=== PATIENT | female | born 1990 | race Caucasian/White ===

== ENCOUNTER → 2016-11-14 | Outpatient (CLI) | payer OTHER ==
[~2016-11-14] MED LIST: /ONDA4TA OR; IBUP600T OR; MILKSUS OR; PHEN 25 PO; PRE; Prenatal Vitamin PO; ZANT150T OR
--- NOTE | 2016-11-14 14:11 | REP ---
MRI STUDY OF THE SACRUM AND COCCYX WITHOUT CONTRAST: HISTORY: Low back pain and pelvic tail bone pain. This is chronologically related to tubal ligation. Comparison pelvic sonography May 29, 2016. TECHNIQUE: Sagittal, axial and coronal imaging planes were utilized. T1- and T2-weighted scans were obtained. FINDINGS: Cortical and medullary bone signal intensity are normal in the sacral and coccygeal segments. No retrocecal or presacral fluid collection or mass is seen. The anus and rectum and presacral soft tissues are unremarkable. There is a tiny nabothian cyst in the cervix. No uterine abnormality is seen otherwise. Uterine dimensions are 8.3 x 4.5 x 6.5 cm. SI joints are unremarkable. There is a 2.6 cm cystic area in the left ovary. A small quantity of fluid is seen in the cul-de-sac consistent with physiologic fluid. Visualized bladder valiente are smooth. The parapelvic skeletal muscle and soft tissues are unremarkable. IMPRESSION: Negative sacral and coccygeal and pelvic MRI study. 2.6 cm unilocular follicle cyst left ovary. Signed by Jonathon Parker MD 11/14/2016 08:12 P
== END ==
LOC: M RAD 10:59
PROVIDERS: ATTEND Nurse Practitioner Family
DX: M46.1 Sacroiliitis, not elsewhere classified (principal); M79.1 Myalgia; M47.817 Spondylosis without myelopathy or radiculopathy, lumbosacral region; M54.16 Radiculopathy, lumbar region; N83.02 Follicular cyst of left ovary

== ENCOUNTER 2016-11-20 17:52 | Emergency (ER) | payer OTHER ==
[2016-11-20 18:51] LABS: BASO # 0.1 K/mm3 (0.0-0.2); BASO % 1.4 % (0.0-1.0); EOS # 0.1 K/mm3 (0.0-0.50); EOS % 2.9 % (0.0-3.0); LARGE UNSTAINED CELL # 0.1 K/mm3 (0.0-0.4); LYMPH # 1.6 K/mm3 (1.5-6.5); LYMPH % 29.8 % (24.0-44.0); MEAN CORPUSCULAR HEMOGLOBIN 28.9 pg (27.0-33.0); MEAN CORPUSCULAR HGB CONC 33.7 g/dl (32.0-36.5); MEAN CORPUSCULAR VOLUME 85.9 fl (80.0-96.0); MONO # 0.2 K/mm3 (0.0-0.8); MONO % 4.8 % (0.0-5.0); NEUTROPHILS # 2.9 K/mm3 (1.8-7.7); NEUTROPHILS % 59.1 % (36.0-66.0); PLATELET COUNT, AUTOMATED 214 k/mm3 (150-450)
[2016-11-20 19:10] LABS: CONTROL LINE HCG INT CTR LINE PRESENT
[2016-11-20 19:19] LABS: ALBUMIN 3.9 GM/DL (3.2-5.2); ALKALINE PHOSPHATASE 42 U/L (45-117); ALT/SGPT 35 U/L (12-78); AMYLASE 54 U/L (25-115); ANION GAP 9 MEQ/L (8-16); AST/SGOT 79 U/L (15-37); BILIRUBIN,DIRECT 0.2 MG/DL (0.0-0.2); BILIRUBIN,TOTAL 0.5 MG/DL (0.2-1.0); BLOOD UREA NITROGEN 7 MG/DL (7-18); CALCIUM LEVEL 9.2 MG/DL (8.5-10.1); CARBON DIOXIDE LEVEL 27 MEQ/L (21-32); CHLORIDE LEVEL 107 MEQ/L (98-107); CREATININE FOR GFR 0.76 MG/DL (0.55-1.02); GLOMERULAR FILTRATION RATE > 60.0 (>60); GLUCOSE, FASTING 93 MG/DL (70-105); POTASSIUM SERUM 3.6 MEQ/L (3.5-5.1); SODIUM LEVEL 143 MEQ/L (136-145); TOTAL PROTEIN 6.5 GM/DL (6.4-8.2)
[2016-11-20] MEDS ORDERED: ONDANSETRON 4 MG ORAL DISINTEGRATING TAB (S0181) As Ordered ONE (19:37)
[2016-11-20] MEDS ORDERED: NITROFURANTOIN (MACROBID) 100 MG CAP As Ordered ONE (19:37)
[2016-11-20] MEDS ORDERED: MAGNESIUM CITRATE 300 ML BTL As Ordered ONE (19:43)
--- NOTE | 2016-11-20 19:56 | EDDOCDS ---
Nurse's Notes [facility] Name: Mary Little Age: 26 yrs Sex: Female : 1990 Arrival Date: 11/20/2016 Time: 17:52 Bed Triage 3 Private MD: Vaibhav Amaral B Diagnosis: Generalized abdominal pain-hx. of constipation;Nausea and vomiting;Cystitis, unspecified Presentation: 11/20 18:11 Presenting complaint: Patient states: Pain in left lower quadrant with intermittent lf1 pain in right upper quadrant that began 40 minutes ago. Pt. denies pain with urination but states her urine has been dark in color. Pain is currently 10/10 with nausea and vomiting. Acute neurological deficits are not present. Mechanism of Injury: No Mechanism of Injury. Adult Sepsis Screening: The patient does not have new or worsening altered mentation. Patient's respiratory rate is less than 22. Systolic blood pressure is greater than 100. Patient has a qSOFA score of 0- Negative Sepsis Screen. Suicide/Homicide risk assessment- the patient denies having any suicidal and/or homicidal ideations and does not present with any other emotional, behavioral or mental health complaints. Status: Patient is not a personal service workers or dependent. Transition of care: patient was not received from another setting of care. 18:11 Acuity: BARRON Level 3 lf1 18:11 Method Of Arrival: Walkin/Carried/Asstd lf1 Triage Assessment: 18:14 General: Appears uncomfortable, Behavior is cooperative. Pain: Location: right upper lf1 quadrant and left lower quadrant Pain currently is 10 out of 10 on a pain scale. HIV screening NA for this visit Offered previously. Neurological: Level of Consciousness is awake, alert, Oriented to person, place, time. EENT: No deficits noted. Cardiovascular: Chest pain is denied. Respiratory: Respiratory effort is even, unlabored. GI: Reports nausea, vomiting. : Reports dark urine. Musculoskeletal: No deficits noted. Injury Description: No known injury. 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 Latuda 40 mg oral tab nightly (Last dose: 11/19/2016 20:00) 2. trazodone 50 mg Oral tab nightly (Last dose: 11/19/2016 20:00) 3. Xanax 0.5 mg Oral tab as needed (Last dose: 11/20/2016 08:00) - PMHx: Anxiety; Bipolar disorder; ovarian cysts; PID; - PSHx: Tubal ligation; Tonsillectomy; - Social history: Smoking status: Electronic cigarettes No barriers to communication noted, The patient speaks fluent [place] Irish, Speaks appropriately for age, Preferred Language: Northern Irish. - Family history: Not pertinent. - : The pt / caregiver states he / she is not on anticoagulants. Home medication list is obtained from the patient. - Exposure Risk Screening:: None identified. Screenin:53 Screening information is obtained from the patient. Fall risk: No risks identified. ko2 Assistance ADL's: requires no assistance with activities of daily living. Abuse/DV Screen: The patient / caregiver reports he/she is: not in a situation that causes fear, pain or injury. Nutritional screening: No deficits noted. Advance Directives: Currently, there is no health care proxy. There is no active DNR order. There is no living will. There is no Power of Press Catcher. home support is adequate. Assessment: 19:53 General: Appears in no apparent distress, comfortable, Behavior is appropriate for age, ko2 cooperative. Pain: Location: abdomen and left lower quadrant and right upper quadrant Pain currently is 7 out of 10 on a pain scale. Neurological: Level of Consciousness is awake, alert. Respiratory: Airway is patent Respiratory effort is even, unlabored. Derm: Skin is normal. Vital Signs: 17:53 BP 116 / 76; Pulse 86; Resp 18 S; Temp 98.0(O); Pulse Ox 98% on R/A; Weight 64.41 kg dd6 (R); Height 5 ft. 1 in. (154.94 cm) (R); 19:33 BP 117 / 68; Pulse 87; Resp 18; Temp 98.8(TE); Pulse Ox 99% on R/A; Pain 8/10; mdr 17:53 Body Mass Index 26.83 (64.41 kg, 154.94 cm) dd6 Vitals: 17:53 Log In Time: November 20, 2016 at 17:51. dd6 ED Course: 17:53 Patient visited by Rodriguez Dominguez PCA. dd6 17:53 Vaibhav Amaral is Private Physician. dd6 17:53 Patient moved to Waiting dd6 17:54 Patient moved to Pre RCE dd6 18:13 Triage Initiated lf1 18:35 Patient moved to PR2 / 26 kr3 18:41 Patient moved to Pre RCE kr3 18:41 Amylase Sent. kr3 18:41 Basic Metabolic Profile Sent. kr3 18:41 CBC with Diff Sent. kr3 18:41 HCG,Serum Qualitative Sent. kr3 18:41 Lipase Sent. kr3 18:41 Liver Profile Sent. kr3 19:17 Patient moved to Triage 3 lf1 19:22 Idris Dockery PA-C is PHCP. cc10 19:22 Paco Wells MD is Attending Physician. cc10 19:22 Patient visited by Idris Dockery PA-C. cc10 19:22 Patient visited by Idris Dockery PA-C. cc10 19:32 Vaibhav Amaral is Referral Physician. cc10 19:53 The patient / caregiver is instructed regarding the plan of care and ED course. ko2 19:54 No IV's were initiated during this patient's visit. No procedures done that require ko2 assistance. Administered Medications: 19:40 Drug: Nitrofurantoin 100 mg [nitrofurantoin macrocrystal 50 mg capsule (2 caps)] Route: ko2 PO; 19:41 Drug: Ondansetron ODT 4 mg [ondansetron 4 mg disintegrating tablet (1 tabs)] Route: PO; ko2 19:47 Drug: Magnesium Citrate 300 ml [magnesium citrate oral solution (300 mL)] Route: PO; ko2 Order Results: Lab Order: Amylase; SPEC'M 11/20/16 18:39 Test: AMYLASE; Value: 54; Range: 25-115; Units: U/L; Status: F Lab Order: Basic Metabolic Profile; SPEC'M 11/20/16 18:39 Test: GLUCOSE, FASTING; Value: 93; Range: 70-105; Units: MG/DL; Status: F Test: BLOOD UREA NITROGEN; Value: 7; Range: 7-18; Units: MG/DL; Status: F Test: CREATININE FOR GFR; Value: 0.76; Range: 0.55-1.02; Units: MG/DL; Status: F Test: SODIUM LEVEL; Range: 136-145; Units: MEQ/L; Status: I Test: POTASSIUM SERUM; Range: 3.5-5.1; Units: MEQ/L; Status: I Test: CHLORIDE LEVEL; Range: 98-107; Units: MEQ/L; Status: I Test: CARBON DIOXIDE LEVEL; Range: 21-32; Units: MEQ/L; Status: I Test: ANION GAP; Range: 8-16; Units: MEQ/L; Status: I Test: CALCIUM LEVEL; Range: 8.5-10.1; Units: MG/DL; Status: I Test: GLOMERULAR FILTRATION RATE; Value: > 60.0; Range: >60; Status: F Test: SODIUM LEVEL; Value: 143; Range: 136-145; Units: MEQ/L; Status: F Test: POTASSIUM SERUM; Value: 3.6; Range: 3.5-5.1; Units: MEQ/L; Status: F Test: CHLORIDE LEVEL; Value: 107; Range: 98-107; Units: MEQ/L; Status: F Test: CARBON DIOXIDE LEVEL; Value: 27; Range: 21-32; Units: MEQ/L; Status: F Test: ANION GAP; Value: 9; Range: 8-16; Units: MEQ/L; Status: F Test: CALCIUM LEVEL; Value: 9.2; Range: 8.5-10.1; Units: MG/DL; Status: F Test Note: ; Units are mL/min/1.73 m2 Chronic Kidney Disease Staging per NKF: Stage I & II GFR >=60 Normal to Mildly Decreased Stage III GFR 30-59 Moderately Decreased Stage IV GFR 15-29 Severely Decreased Stage V GFR <15 Very Little GFR Left ESRD GFR <15 on MILL DRESSER Lab Order: CBC with Diff; SPEC'M 11/20/16 18:39 Test: WHITE BLOOD COUNT; Value: 5.0; Range: 4.0-10.0; Units: K/mm3; Status: F Test: RED BLOOD COUNT; Value: 4.33; Range: 4.00-5.40; Units: M/mm3; Status: F Test: HEMOGLOBIN; Value: 12.5; Range: 12.0-16.0; Units: g/dl; Status: F Test: HEMATOCRIT; Value: 37.1; Range: 36.0-47.0; Units: %; Status: F Test: MEAN CORPUSCULAR VOLUME; Value: 85.9; Range: 80.0-96.0; Units: fl; Status: F Test: MEAN CORPUSCULAR HEMOGLOBIN; Value: 28.9; Range: 27.0-33.0; Units: pg; Status: F Test: MEAN CORPUSCULAR HGB CONC; Value: 33.7; Range: 32.0-36.5; Units: g/dl; Status: F Test: RED CELL DISTRIBUTION WIDTH; Value: 14.0; Range: 11.5-14.5; Units: %; Status: F Test: PLATELET COUNT, AUTOMATED; Value: 214; Range: 150-450; Units: k/mm3; Status: F Test: NEUTROPHILS %; Value: 59.1; Range: 36.0-66.0; Units: %; Status: F Test: LYMPH %; Value: 29.8; Range: 24.0-44.0; Units: %; Status: F Test: MONO %; Value: 4.8; Range: 0.0-5.0; Units: %; Status: F Test: EOS %; Value: 2.9; Range: 0.0-3.0; Units: %; Status: F Test: BASO %; Value: 1.4; Range: 0.0-1.0; Abnormal: Above high normal; Units: %; Status: F Test: LARGE UNSTAINED CELL %; Value: 2.0; Range: 0.0-4.0; Units: %; Status: F Test: NEUTROPHILS #; Value: 2.9; Range: 1.8-7.7; Units: K/mm3; Status: F Test: LYMPH #; Value: 1.6; Range: 1.5-6.5; Units: K/mm3; Status: F Test: MONO #; Value: 0.2; Range: 0.0-0.8; Units: K/mm3; Status: F Test: EOS #; Value: 0.1; Range: 0.0-0.50; Units: K/mm3; Status: F Test: BASO #; Value: 0.1; Range: 0.0-0.2; Units: K/mm3; Status: F Test: LARGE UNSTAINED CELL #; Value: 0.1; Range: 0.0-0.4; Units: K/mm3; Status: F Lab Order: HCG,Serum Qualitative; [facility] 11/20/16 18:39 Test: HCG, SERUM QUALITATIVE; Value: NEGATIVE; Range: NEGATIVE; Status: F Lab Order: Lipase; [facility] 11/20/16 18:39 Test: LIPASE; Value: 178; Range: 73-393; Units: U/L; Status: F Lab Order: Liver Profile; [facility] 11/20/16 18:39 Test: AST/SGOT; Value: 79; Range: 15-37; Abnormal: Above high normal; Units: U/L; Status: F Test: ALT/SGPT; Value: 35; Range: 12-78; Units: U/L; Status: F Test: ALKALINE PHOSPHATASE; Value: 42; Range: 45-117; Abnormal: Below low normal; Units: U/L; Status: F Test: BILIRUBIN,TOTAL; Value: 0.5; Range: 0.2-1.0; Units: MG/DL; Status: F Test: BILIRUBIN,DIRECT; Value: 0.2; Range: 0.0-0.2; Units: MG/DL; Status: F Test: TOTAL PROTEIN; Value: 6.5; Range: 6.4-8.2; Units: GM/DL; Status: F Test: ALBUMIN; Value: 3.9; Range: 3.2-5.2; Units: GM/DL; Status: F Test: ALBUMIN/GLOBULIN RATIO; Value: 1.50; Range: 1.00-1.93; Status: F Lab Order: UA; [facility] 11/20/16 18:29 Test: APPEARANCE, URINE; Value: CLEAR; Range: CLEAR; Status: F Test: COLOR, URINE; Value: YELLOW; Range: YELLOW; Status: F Test: PH,URINE; Value: 6.0; Range: 5.0-9.0; Units: UNITS; Status: F Test: SPECIFIC GRAVITY URINE AUTO; Value: 1.010; Range: 1.002-1.035; Status: F Test: PROTEIN, URINE AUTO; Value: NEGATIVE; Range: NEGATIVE; Units: mg/dL; Status: F Test: GLUCOSE, URINE (UA) AUTO; Value: NEGATIVE; Range: NEGATIVE; Units: mg/dL; Status: F Test: KETONE, URINE AUTO; Value: TRACE; Range: NEGATIVE; Abnormal: Above high normal; Units: mg/dL; Status: F Test: UROBILINOGEN, URINE AUTO; Value: 0.2; Range: 0.0-2.0; Units: mg/dL; Status: F Test: BILIRUBIN, URINE AUTO; Value: NEGATIVE; Range: NEGATIVE; Status: F Test: NITRITE, URINE AUTO; Value: NEGATIVE; Range: NEGATIVE; Status: F Test: LEUKOCYTE ESTERASE, URINE AUTO; Value: TRACE; Range: NEGATIVE; Abnormal: Above high normal; Status: F Test: BLOOD, URINE BLOOD; Value: NEGATIVE; Range: NEGATIVE; Status: F Test: WBC, URINE AUTO; Value: 4; Range: 0-3; Abnormal: Above high normal; Units: /HPF; Status: F Test: RBC, URINE AUTO; Value: 2; Range: 0-3; Units: /HPF; Status: F Test: BACTERIA, URINE AUTO; Value: 2+; Range: NEGATIVE; Abnormal: Above high normal; Status: F Test: SQUAMOUS EPITHELIAL CELL UR AU; Value: 5; Range: 0-6; Units: /HPF; Status: F Test: MUCUS, URINE; Value: SMALL; Range: NEGATIVE; Status: F Test: HYALINE CAST, URINE AUTO; Value: 0; Range: 0-1; Units: /LPF; Status: F Outcome: 19:33 Discharge ordered by Provider. cc10 19:54 Discharge Assessment: Patient awake, alert and oriented x 3. No cognitive and/or ko2 functional deficits noted. Patient verbalized understanding of disposition instructions. patient administered narcotics - no. The following High Risk Discharge criteria are identified: None. Discharged to home ambulatory, with parent. Condition: stable. Discharge instructions given to patient, Instructed on discharge instructions, follow up and referral plans. medication usage, Demonstrated understanding of instructions, medications, Pt was receptive of discharge instructions/ teaching. Prescriptions given X 2. No special radiology studies were completed. Property sent home with patient. 19:54 Patient left the ED. ko2 Signatures: Cydney Roberts,RN RN [email or web address] Kori DillRN RN lf1 Rodriguez Dominguez, MACHINE LEATHER TRIMMER MACHINE LEATHER TRIMMER dd6 Idris Dockery, PA-C PA-C cc10 Becky Tubbs RN RN ko2 Rommel, Harshal, MACHINE LEATHER TRIMMER MACHINE LEATHER TRIMMER mdr SHANNAND
--- NOTE | 2016-11-20 19:56 | EDDOCDS ---
Physician Documentation [facility] Name: Mary Little Age: 26 yrs Sex: Female : 1990 Arrival Date: 11/20/2016 Time: 17:52 Bed Triage 3 Private MD: Vaibhav Amaral B Disposition: 11/20/16 19:33 Discharged to Home/Self Care. Impression: Generalized abdominal pain - hx. of constipation, Nausea and vomiting, Cystitis, unspecified. - Condition is Stable. - Discharge Instructions: Abdominal Pain, Adult, Constipation, Adult, Urinary Tract Infection. - Prescriptions for ZOFRAN ODT 4 mg - dissolve 1 tablet by ORAL route 4 times per day As needed do not chew, do not swallow whole; 10 tablet. Macrobid 100 mg Oral Capsule - take 100 milligrams by ORAL route every 12 hours for 5 days; 10 capsule. - Medication Reconciliation, Local Pharmacy Hours form. - Follow up: Vaibhav Amaral; When: Call to arrange an appointment; Reason: Wound/Symptom Recheck, Recheck today's complaints, Worsening of conditions, Continuance of care. - Problem is an acute exacerbation. - Symptoms are unchanged. Historical: - Allergies: No known drug Allergies; - Home Meds: 1. Latuda 40 mg oral tab nightly (Last dose: 11/19/2016 20:00) 2. trazodone 50 mg Oral tab nightly (Last dose: 11/19/2016 20:00) 3. Xanax 0.5 mg Oral tab as needed (Last dose: 11/20/2016 08:00) - PMHx: Anxiety; Bipolar disorder; ovarian cysts; PID; - PSHx: Tubal ligation; Tonsillectomy; - Social history: Smoking status: Electronic cigarettes No barriers to communication noted, The patient speaks fluent [place], Speaks appropriately for age, Preferred Language: [place]. - Family history: Not pertinent. - : The pt / caregiver states he / she is not on anticoagulants. Home medication list is obtained from the patient. - Exposure Risk Screening:: None identified. 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 1 in. (154.94 cm) (R); 19:33 BP 117 / 68; Pulse 87; Resp 18; Temp 98.8(TE); Pulse Ox 99% on R/A; Pain 8/10; mdr 17:53 Body Mass Index 26.83 (64.41 kg, 154.94 cm) dd6 MDM: 18:28 Amylase Ordered. EDMS 18:28 Basic Metabolic Profile Ordered. EDMS 18:28 CBC with Diff Ordered. EDMS 18:28 HCG,Serum Qualitative Ordered. EDMS 18:28 Lipase Ordered. EDMS 18:28 Liver Profile Ordered. EDMS 18:28 UA Ordered. EDMS 19:26 CBC with Diff Reviewed. cc10 19:26 Liver Profile Reviewed. cc10 19:26 UA Reviewed. cc10 19:26 Amylase Reviewed. cc10 19:26 Basic Metabolic Profile Reviewed. cc10 19:26 HCG,Serum Qualitative Reviewed. cc10 19:26 Lipase Reviewed. cc10 19:30 Financial registration complete. gb 19:32 Ondansetron ODT Oral Disintegrating Tablet 4 mg PO once ordered. cc10 19:32 Nitrofurantoin 100 mg PO once ordered. cc10 19:32 Magnesium Citrate Liquid 300 ml PO once; Dispense home with pt. ordered. cc10 Administered Medications: 19:40 Drug: Nitrofurantoin 100 mg [nitrofurantoin macrocrystal 50 mg capsule (2 caps)] Route: ko2 PO; 19:41 Drug: Ondansetron ODT 4 mg [ondansetron 4 mg disintegrating tablet (1 tabs)] Route: PO; ko2 19:47 Drug: Magnesium Citrate 300 ml [magnesium citrate oral solution (300 mL)] Route: PO; ko2 Signatures: Dispatcher [employer] EDMS Viki Gonzales, Reg Reg gb Kori Dill,RN RN lf1 Idris Dockery PA-C PAAmadou cc10 Becky Tubbs RN RN ko2 MTDD
--- NOTE | 2016-11-22 20:56 | EDDOCDS ---
Nurse's Notes [facility] Name: Mary Little Age: 26 yrs Sex: Female : 1990 Arrival Date: 11/20/2016 Time: 17:52 Bed Triage 3 Private MD: Vaibhav Amaral B Diagnosis: Generalized abdominal pain-hx. of constipation;Nausea and vomiting;Cystitis, unspecified Presentation: 11/20 18:11 Presenting complaint: Patient states: Pain in left lower quadrant with intermittent lf1 pain in right upper quadrant that began 40 minutes ago. Pt. denies pain with urination but states her urine has been dark in color. Pain is currently 10/10 with nausea and vomiting. Acute neurological deficits are not present. Mechanism of Injury: No Mechanism of Injury. Adult Sepsis Screening: The patient does not have new or worsening altered mentation. Patient's respiratory rate is less than 22. Systolic blood pressure is greater than 100. Patient has a qSOFA score of 0- Negative Sepsis Screen. Suicide/Homicide risk assessment- the patient denies having any suicidal and/or homicidal ideations and does not present with any other emotional, behavioral or mental health complaints. Status: Patient is not a banking services officer or dependent. Transition of care: patient was not received from another setting of care. 18:11 Acuity: BARRON Level 3 lf1 18:11 Method Of Arrival: Walkin/Carried/Asstd lf1 Triage Assessment: 18:14 General: Appears uncomfortable, Behavior is cooperative. Pain: Location: right upper lf1 quadrant and left lower quadrant Pain currently is 10 out of 10 on a pain scale. HIV screening NA for this visit Offered previously. Neurological: Level of Consciousness is awake, alert, Oriented to person, place, time. EENT: No deficits noted. Cardiovascular: Chest pain is denied. Respiratory: Respiratory effort is even, unlabored. GI: Reports nausea, vomiting. : Reports dark urine. Musculoskeletal: No deficits noted. Injury Description: No known injury. 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 Latuda 40 mg oral tab nightly (Last dose: 11/19/2016 20:00) 2. trazodone 50 mg Oral tab nightly (Last dose: 11/19/2016 20:00) 3. Xanax 0.5 mg Oral tab as needed (Last dose: 11/20/2016 08:00) - PMHx: Anxiety; Bipolar disorder; ovarian cysts; PID; - PSHx: Tubal ligation; Tonsillectomy; - Social history: Smoking status: Electronic cigarettes No barriers to communication noted, The patient speaks fluent Angolan, Speaks appropriately for age, Preferred Language: Angolan. - Family history: Not pertinent. - : The pt / caregiver states he / she is not on anticoagulants. Home medication list is obtained from the patient. - Exposure Risk Screening:: None identified. Screenin:53 Screening information is obtained from the patient. Fall risk: No risks identified. ko2 Assistance ADL's: requires no assistance with activities of daily living. Abuse/DV Screen: The patient / caregiver reports he/she is: not in a situation that causes fear, pain or injury. Nutritional screening: No deficits noted. Advance Directives: Currently, there is no health care proxy. There is no active DNR order. There is no living will. There is no Power of Hydrator. home support is adequate. Assessment: 19:53 General: Appears in no apparent distress, comfortable, Behavior is appropriate for age, ko2 cooperative. Pain: Location: abdomen and left lower quadrant and right upper quadrant Pain currently is 7 out of 10 on a pain scale. Neurological: Level of Consciousness is awake, alert. Respiratory: Airway is patent Respiratory effort is even, unlabored. Derm: Skin is normal. Vital Signs: 17:53 BP 116 / 76; Pulse 86; Resp 18 S; Temp 98.0(O); Pulse Ox 98% on R/A; Weight 64.41 kg dd6 (R); Height 5 ft. 1 in. (154.94 cm) (R); 19:33 BP 117 / 68; Pulse 87; Resp 18; Temp 98.8(TE); Pulse Ox 99% on R/A; Pain 8/10; mdr 17:53 Body Mass Index 26.83 (64.41 kg, 154.94 cm) dd6 Vitals: 17:53 Log In Time: November 20, 2016 at 17:51. dd6 ED Course: 17:53 Patient visited by Rodriguez Dominguez PCA. dd6 17:53 Vaibhav Amaral is Private Physician. dd6 17:53 Patient moved to Waiting dd6 17:54 Patient moved to Pre RCE dd6 18:13 Triage Initiated lf1 18:35 Patient moved to PR2 / 26 kr3 18:41 Patient moved to Pre RCE kr3 18:41 Amylase Sent. kr3 18:41 Basic Metabolic Profile Sent. kr3 18:41 CBC with Diff Sent. kr3 18:41 HCG,Serum Qualitative Sent. kr3 18:41 Lipase Sent. kr3 18:41 Liver Profile Sent. kr3 19:17 Patient moved to Triage 3 lf1 19:22 Idris Dockery PA-C is PHCP. cc10 19:22 Paco Wells MD is Attending Physician. cc10 19:22 Patient visited by Idris Dockery PA-C. cc10 19:22 Patient visited by Idris Dockery PA-C. cc10 19:32 Vaibhav Amaral is Referral Physician. cc10 19:53 The patient / caregiver is instructed regarding the plan of care and ED course. ko2 19:54 No IV's were initiated during this patient's visit. No procedures done that require ko2 assistance. 20:27 [place] [place] was scanned into [employer] and attached to record. gb 11/21 03:04 T-Sheet-- Draft Copy was scanned into [employer] and attached to record. hs2 13:17 ECG/EKG was scanned into [employer] and attached to record. gb Administered Medications: 11/20 19:40 Drug: Nitrofurantoin 100 mg [nitrofurantoin macrocrystal 50 mg capsule (2 caps)] Route: ko2 PO; 19:41 Drug: Ondansetron ODT 4 mg [ondansetron 4 mg disintegrating tablet (1 tabs)] Route: PO; ko2 19:47 Drug: Magnesium Citrate 300 ml [magnesium citrate oral solution (300 mL)] Route: PO; ko2 Order Results: Lab Order: Amylase; SPEC'M 11/20/16 18:39 Test: AMYLASE; Value: 54; Range: 25-115; Units: U/L; Status: F Lab Order: Basic Metabolic Profile; SPEC'M 11/20/16 18:39 Test: GLUCOSE, FASTING; Value: 93; Range: 70-105; Units: MG/DL; Status: F Test: BLOOD UREA NITROGEN; Value: 7; Range: 7-18; Units: MG/DL; Status: F Test: CREATININE FOR GFR; Value: 0.76; Range: 0.55-1.02; Units: MG/DL; Status: F Test: SODIUM LEVEL; Range: 136-145; Units: MEQ/L; Status: I Test: POTASSIUM SERUM; Range: 3.5-5.1; Units: MEQ/L; Status: I Test: CHLORIDE LEVEL; Range: 98-107; Units: MEQ/L; Status: I Test: CARBON DIOXIDE LEVEL; Range: 21-32; Units: MEQ/L; Status: I Test: ANION GAP; Range: 8-16; Units: MEQ/L; Status: I Test: CALCIUM LEVEL; Range: 8.5-10.1; Units: MG/DL; Status: I Test: GLOMERULAR FILTRATION RATE; Value: > 60.0; Range: >60; Status: F Test: SODIUM LEVEL; Value: 143; Range: 136-145; Units: MEQ/L; Status: F Test: POTASSIUM SERUM; Value: 3.6; Range: 3.5-5.1; Units: MEQ/L; Status: F Test: CHLORIDE LEVEL; Value: 107; Range: 98-107; Units: MEQ/L; Status: F Test: CARBON DIOXIDE LEVEL; Value: 27; Range: 21-32; Units: MEQ/L; Status: F Test: ANION GAP; Value: 9; Range: 8-16; Units: MEQ/L; Status: F Test: CALCIUM LEVEL; Value: 9.2; Range: 8.5-10.1; Units: MG/DL; Status: F Test Note: ; Units are mL/min/1.73 m2 Chronic Kidney Disease Staging per NKF: Stage I & II GFR >=60 Normal to Mildly Decreased Stage III GFR 30-59 Moderately Decreased Stage IV GFR 15-29 Severely Decreased Stage V GFR <15 Very Little GFR Left ESRD GFR <15 on [employer] OPERATOR Lab Order: CBC with Diff; SPEC'M 11/20/16 18:39 Test: WHITE BLOOD COUNT; Value: 5.0; Range: 4.0-10.0; Units: K/mm3; Status: F Test: RED BLOOD COUNT; Value: 4.33; Range: 4.00-5.40; Units: M/mm3; Status: F Test: HEMOGLOBIN; Value: 12.5; Range: 12.0-16.0; Units: g/dl; Status: F Test: HEMATOCRIT; Value: 37.1; Range: 36.0-47.0; Units: %; Status: F Test: MEAN CORPUSCULAR VOLUME; Value: 85.9; Range: 80.0-96.0; Units: fl; Status: F Test: MEAN CORPUSCULAR HEMOGLOBIN; Value: 28.9; Range: 27.0-33.0; Units: pg; Status: F Test: MEAN CORPUSCULAR HGB CONC; Value: 33.7; Range: 32.0-36.5; Units: g/dl; Status: F Test: RED CELL DISTRIBUTION WIDTH; Value: 14.0; Range: 11.5-14.5; Units: %; Status: F Test: PLATELET COUNT, AUTOMATED; Value: 214; Range: 150-450; Units: k/mm3; Status: F Test: NEUTROPHILS %; Value: 59.1; Range: 36.0-66.0; Units: %; Status: F Test: LYMPH %; Value: 29.8; Range: 24.0-44.0; Units: %; Status: F Test: MONO %; Value: 4.8; Range: 0.0-5.0; Units: %; Status: F Test: EOS %; Value: 2.9; Range: 0.0-3.0; Units: %; Status: F Test: BASO %; Value: 1.4; Range: 0.0-1.0; Abnormal: Above high normal; Units: %; Status: F Test: LARGE UNSTAINED CELL %; Value: 2.0; Range: 0.0-4.0; Units: %; Status: F Test: NEUTROPHILS #; Value: 2.9; Range: 1.8-7.7; Units: K/mm3; Status: F Test: LYMPH #; Value: 1.6; Range: 1.5-6.5; Units: K/mm3; Status: F Test: MONO #; Value: 0.2; Range: 0.0-0.8; Units: K/mm3; Status: F Test: EOS #; Value: 0.1; Range: 0.0-0.50; Units: K/mm3; Status: F Test: BASO #; Value: 0.1; Range: 0.0-0.2; Units: K/mm3; Status: F Test: LARGE UNSTAINED CELL #; Value: 0.1; Range: 0.0-0.4; Units: K/mm3; Status: F Lab Order: HCG,Serum Qualitative; [facility] 11/20/16 18:39 Test: HCG, SERUM QUALITATIVE; Value: NEGATIVE; Range: NEGATIVE; Status: F Lab Order: Lipase; [facility] 11/20/16 18:39 Test: LIPASE; Value: 178; Range: 73-393; Units: U/L; Status: F Lab Order: Liver Profile; [facility] 11/20/16 18:39 Test: AST/SGOT; Value: 79; Range: 15-37; Abnormal: Above high normal; Units: U/L; Status: F Test: ALT/SGPT; Value: 35; Range: 12-78; Units: U/L; Status: F Test: ALKALINE PHOSPHATASE; Value: 42; Range: 45-117; Abnormal: Below low normal; Units: U/L; Status: F Test: BILIRUBIN,TOTAL; Value: 0.5; Range: 0.2-1.0; Units: MG/DL; Status: F Test: BILIRUBIN,DIRECT; Value: 0.2; Range: 0.0-0.2; Units: MG/DL; Status: F Test: TOTAL PROTEIN; Value: 6.5; Range: 6.4-8.2; Units: GM/DL; Status: F Test: ALBUMIN; Value: 3.9; Range: 3.2-5.2; Units: GM/DL; Status: F Test: ALBUMIN/GLOBULIN RATIO; Value: 1.50; Range: 1.00-1.93; Status: F Lab Order: UA; [facility] 11/20/16 18:29 Test: APPEARANCE, URINE; Value: CLEAR; Range: CLEAR; Status: F Test: COLOR, URINE; Value: YELLOW; Range: YELLOW; Status: F Test: PH,URINE; Value: 6.0; Range: 5.0-9.0; Units: UNITS; Status: F Test: SPECIFIC GRAVITY URINE AUTO; Value: 1.010; Range: 1.002-1.035; Status: F Test: PROTEIN, URINE AUTO; Value: NEGATIVE; Range: NEGATIVE; Units: mg/dL; Status: F Test: GLUCOSE, URINE (UA) AUTO; Value: NEGATIVE; Range: NEGATIVE; Units: mg/dL; Status: F Test: KETONE, URINE AUTO; Value: TRACE; Range: NEGATIVE; Abnormal: Above high normal; Units: mg/dL; Status: F Test: UROBILINOGEN, URINE AUTO; Value: 0.2; Range: 0.0-2.0; Units: mg/dL; Status: F Test: BILIRUBIN, URINE AUTO; Value: NEGATIVE; Range: NEGATIVE; Status: F Test: NITRITE, URINE AUTO; Value: NEGATIVE; Range: NEGATIVE; Status: F Test: LEUKOCYTE ESTERASE, URINE AUTO; Value: TRACE; Range: NEGATIVE; Abnormal: Above high normal; Status: F Test: BLOOD, URINE BLOOD; Value: NEGATIVE; Range: NEGATIVE; Status: F Test: WBC, URINE AUTO; Value: 4; Range: 0-3; Abnormal: Above high normal; Units: /HPF; Status: F Test: RBC, URINE AUTO; Value: 2; Range: 0-3; Units: /HPF; Status: F Test: BACTERIA, URINE AUTO; Value: 2+; Range: NEGATIVE; Abnormal: Above high normal; Status: F Test: SQUAMOUS EPITHELIAL CELL UR AU; Value: 5; Range: 0-6; Units: /HPF; Status: F Test: MUCUS, URINE; Value: SMALL; Range: NEGATIVE; Status: F Test: HYALINE CAST, URINE AUTO; Value: 0; Range: 0-1; Units: /LPF; Status: F Outcome: 19:33 Discharge ordered by Provider. cc10 19:54 Discharge Assessment: Patient awake, alert and oriented x 3. No cognitive and/or ko2 functional deficits noted. Patient verbalized understanding of disposition instructions. patient administered narcotics - no. The following High Risk Discharge criteria are identified: None. Discharged to home ambulatory, with parent. Condition: stable. Discharge instructions given to patient, Instructed on discharge instructions, follow up and referral plans. medication usage, Demonstrated understanding of instructions, medications, Pt was receptive of discharge instructions/ teaching. Prescriptions given X 2. No special radiology studies were completed. Property sent home with patient. 19:54 Patient left the ED. ko2 Signatures: Viki Gonzales, Reg Reg gb Cydney Roberts,RN RN kr3 Kori Dill,RN RN lf1 Rodriguez Dominguez, DIRECTOR INVESTMENT BANKING DIRECTOR INVESTMENT BANKING dd6 Idris Dockery, PA-C PA-C cc10 Becky TubbsRN RN ko2 Harshal Carney, DIRECTOR INVESTMENT BANKING DIRECTOR INVESTMENT BANKING mdr Vivian Barrett, Reg Reg hs2 Chart Complete MTDD
--- NOTE | 2016-11-22 20:56 | EDDOCDS ---
Physician Documentation [facility] Name: Mary Little Age: 26 yrs Sex: Female : 1990 Arrival Date: 11/20/2016 Time: 17:52 Bed Triage 3 Private MD: Vaibhav Amaral B Disposition: 11/20/16 19:33 Discharged to Home/Self Care. Impression: Generalized abdominal pain - hx. of constipation, Nausea and vomiting, Cystitis, unspecified. - Condition is Stable. - Discharge Instructions: Abdominal Pain, Adult, Constipation, Adult, Urinary Tract Infection. - Prescriptions for ZOFRAN ODT 4 mg - dissolve 1 tablet by ORAL route 4 times per day As needed do not chew, do not swallow whole; 10 tablet. Macrobid 100 mg Oral Capsule - take 100 milligrams by ORAL route every 12 hours for 5 days; 10 capsule. - Medication Reconciliation, Local Pharmacy Hours form. - Follow up: Vaibhav Amaral; When: Call to arrange an appointment; Reason: Wound/Symptom Recheck, Recheck today's complaints, Worsening of conditions, Continuance of care. - Problem is an acute exacerbation. - Symptoms are unchanged. Historical: - Allergies: No known drug Allergies; - Home Meds: 1. Latuda 40 mg oral tab nightly (Last dose: 11/19/2016 20:00) 2. trazodone 50 mg Oral tab nightly (Last dose: 11/19/2016 20:00) 3. Xanax 0.5 mg Oral tab as needed (Last dose: 11/20/2016 08:00) - PMHx: Anxiety; Bipolar disorder; ovarian cysts; PID; - PSHx: Tubal ligation; Tonsillectomy; - Social history: Smoking status: Electronic cigarettes No barriers to communication noted, The patient speaks fluent German, Speaks appropriately for age, Preferred Language: German. - Family history: Not pertinent. - : The pt / caregiver states he / she is not on anticoagulants. Home medication list is obtained from the patient. - Exposure Risk Screening:: None identified. 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 1 in. (154.94 cm) (R); 19:33 BP 117 / 68; Pulse 87; Resp 18; Temp 98.8(TE); Pulse Ox 99% on R/A; Pain 8/10; mdr 17:53 Body Mass Index 26.83 (64.41 kg, 154.94 cm) dd6 MDM: 18:28 Amylase Ordered. EDMS 18:28 Basic Metabolic Profile Ordered. EDMS 18:28 CBC with Diff Ordered. EDMS 18:28 HCG,Serum Qualitative Ordered. EDMS 18:28 Lipase Ordered. EDMS 18:28 Liver Profile Ordered. EDMS 18:28 UA Ordered. EDMS 19:26 CBC with Diff Reviewed. cc10 19:26 Liver Profile Reviewed. cc10 19:26 UA Reviewed. cc10 19:26 Amylase Reviewed. cc10 19:26 Basic Metabolic Profile Reviewed. cc10 19:26 HCG,Serum Qualitative Reviewed. cc10 19:26 Lipase Reviewed. cc10 19:30 Financial registration complete. gb 19:32 Ondansetron ODT Oral Disintegrating Tablet 4 mg PO once ordered. cc10 19:32 Nitrofurantoin 100 mg PO once ordered. cc10 19:32 Magnesium Citrate Liquid 300 ml PO once; Dispense home with pt. ordered. cc10 20:27 [facility] Payment Agreement was scanned into [employer] and attached to record. gb 11/21 03:04 T-Sheet-- Draft Copy was scanned into [employer] and attached to record. hs2 13:17 ECG/EKG was scanned into [employer] and attached to record. gb Administered Medications: 11/20 19:40 Drug: Nitrofurantoin 100 mg [nitrofurantoin macrocrystal 50 mg capsule (2 caps)] Route: ko2 PO; 19:41 Drug: Ondansetron ODT 4 mg [ondansetron 4 mg disintegrating tablet (1 tabs)] Route: PO; ko2 19:47 Drug: Magnesium Citrate 300 ml [magnesium citrate oral solution (300 mL)] Route: PO; ko2 Signatures: Dispatcher [employer] EDMS Viki Gonzales, Reg Reg gb Kori Dill,RN RN lf1 Idris Dockery PA-C PAIrvinC cc10 Becky Tubbs,RN RN ko2 Vivian Barrett, Reg Reg hs2 The chart was reviewed and I authenticate all verbal orders and agree with the evaluation and treatment provided.Attachments: 20:27 [place] [place] Payment Agreement gb 11/21 03:04 T-Sheet-- Draft Copy hs2 13:17 ECG/EKG gb Chart Complete MTDD
--- NOTE | 2016-11-22 20:56 | EDDOCDS ---
Physician Documentation [facility] Name: Mary Little Age: 26 yrs Sex: Female : 1990 Arrival Date: 11/20/2016 Time: 17:52 Bed Triage 3 Private MD: Vaibhav Amaral B Disposition: 11/20/16 19:33 Discharged to Home/Self Care. Impression: Generalized abdominal pain - hx. of constipation, Nausea and vomiting, Cystitis, unspecified. - Condition is Stable. - Discharge Instructions: Abdominal Pain, Adult, Constipation, Adult, Urinary Tract Infection. - Prescriptions for ZOFRAN ODT 4 mg - dissolve 1 tablet by ORAL route 4 times per day As needed do not chew, do not swallow whole; 10 tablet. Macrobid 100 mg Oral Capsule - take 100 milligrams by ORAL route every 12 hours for 5 days; 10 capsule. - Medication Reconciliation, Local Pharmacy Hours form. - Follow up: Vaibhav Amaral; When: Call to arrange an appointment; Reason: Wound/Symptom Recheck, Recheck today's complaints, Worsening of conditions, Continuance of care. - Problem is an acute exacerbation. - Symptoms are unchanged. Historical: - Allergies: No known drug Allergies; - Home Meds: 1. Latuda 40 mg oral tab nightly (Last dose: 11/19/2016 20:00) 2. trazodone 50 mg Oral tab nightly (Last dose: 11/19/2016 20:00) 3. Xanax 0.5 mg Oral tab as needed (Last dose: 11/20/2016 08:00) - PMHx: Anxiety; Bipolar disorder; ovarian cysts; PID; - PSHx: Tubal ligation; Tonsillectomy; - Social history: Smoking status: Electronic cigarettes No barriers to communication noted, The patient speaks fluent Nicaraguan, Speaks appropriately for age, Preferred Language: Nicaraguan. - Family history: Not pertinent. - : The pt / caregiver states he / she is not on anticoagulants. Home medication list is obtained from the patient. - Exposure Risk Screening:: None identified. 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 1 in. (154.94 cm) (R); 19:33 BP 117 / 68; Pulse 87; Resp 18; Temp 98.8(TE); Pulse Ox 99% on R/A; Pain 8/10; mdr 17:53 Body Mass Index 26.83 (64.41 kg, 154.94 cm) dd6 MDM: 18:28 Amylase Ordered. EDMS 18:28 Basic Metabolic Profile Ordered. EDMS 18:28 CBC with Diff Ordered. EDMS 18:28 HCG,Serum Qualitative Ordered. EDMS 18:28 Lipase Ordered. EDMS 18:28 Liver Profile Ordered. EDMS 18:28 UA Ordered. EDMS 19:26 CBC with Diff Reviewed. cc10 19:26 Liver Profile Reviewed. cc10 19:26 UA Reviewed. cc10 19:26 Amylase Reviewed. cc10 19:26 Basic Metabolic Profile Reviewed. cc10 19:26 HCG,Serum Qualitative Reviewed. cc10 19:26 Lipase Reviewed. cc10 19:30 Financial registration complete. gb 19:32 Ondansetron ODT Oral Disintegrating Tablet 4 mg PO once ordered. cc10 19:32 Nitrofurantoin 100 mg PO once ordered. cc10 19:32 Magnesium Citrate Liquid 300 ml PO once; Dispense home with pt. ordered. cc10 20:27 [facility] Payment Agreement was scanned into [employer] and attached to record. gb 11/21 03:04 T-Sheet-- Draft Copy was scanned into [employer] and attached to record. hs2 13:17 ECG/EKG was scanned into [employer] and attached to record. gb Administered Medications: 11/20 19:40 Drug: Nitrofurantoin 100 mg [nitrofurantoin macrocrystal 50 mg capsule (2 caps)] Route: ko2 PO; 19:41 Drug: Ondansetron ODT 4 mg [ondansetron 4 mg disintegrating tablet (1 tabs)] Route: PO; ko2 19:47 Drug: Magnesium Citrate 300 ml [magnesium citrate oral solution (300 mL)] Route: PO; ko2 Signatures: Dispatcher [employer] EDMS Viki Gonzales, Reg Reg gb Kori Dill,RN RN lf1 Idris Dockery PA-C PAIrvinC cc10 Becky Tubbs,RN RN ko2 Vivian Barrett, Reg Reg hs2 The chart was reviewed and I authenticate all verbal orders and agree with the evaluation and treatment provided.Attachments: 20:27 [place] [place] Agreement gb 11/21 03:04 T-Sheet-- Draft Copy hs2 13:17 ECG/EKG gb Chart Complete MTDD
== END 2016-11-20 19:54 | disposition home or self-care (01) ==
LOC: M ED 17:52
DX: R10.84 Generalized abdominal pain (principal); R11.2 Nausea with vomiting, unspecified; F31.9 Bipolar disorder, unspecified; N83.209 Unspecified ovarian cyst, unspecified side; N73.9 Female pelvic inflammatory disease, unspecified; Z79.899 Other long term (current) drug therapy; F17.210 Nicotine dependence, cigarettes, uncomplicated

== ENCOUNTER → 2016-12-10 | Outpatient (REF) | payer OTHER | LOC: M LAB REF 10:18 | PROVIDERS: ATTEND Physician Assistant Medical | DX: R10.30 Lower abdominal pain, unspecified (principal) ==

== ENCOUNTER 2017-01-01 13:06 | Emergency (ER) | payer OTHER ==
[~2017-01-01] VITALS: Ht 154.9 cm; Wt 62.1 kg
[2017-01-01] MEDS ORDERED: TRAZ100T4 PO (13:28)
[2017-01-01] MEDS ORDERED: CLON1TAB PO (13:28)
[2017-01-01] MEDS ORDERED: LATU80TA PO (13:28)
[2017-01-01] MEDS ORDERED: ONDANSETRON 4 MG TAB (S0181) PO ONE (14:00)
[2017-01-01] MEDS ORDERED: ATIV1TAB7 PO ×2 (14:46→14:48)
[2017-01-01 14:55] VITALS: BP 104/62
== END 2017-01-01 15:04 | disposition home or self-care (01) ==
LOC: M ED 14:15
DX: F41.9 Anxiety disorder, unspecified (principal)

== ENCOUNTER → 2017-01-02 | Outpatient (CLI) | payer OTHER ==
[~2017-01-02] MED LIST changes: +ATIV1TAB7 PO; +CLON1TAB PO; +LATU80TA PO; +TRAZ100T4 PO
--- NOTE | 2017-01-03 06:56 | REP ---
ABDOMEN, FLAT AND UPRIGHT, PA CHEST, THREE VIEWS: HISTORY: Constipation. A small amount of air is present in small and large intestine. There are no air fluid levels or dilated loops of intestine. There is no pneumoperitoneum. The lungs are clear. IMPRESSION: Nonspecific bowel gas pattern. Signed by Denis Bright MD 01/03/2017 08:24 A
== END ==
LOC: M WUC 17:16
PROVIDERS: ATTEND Physician Assistant Medical
DX: K59.00 Constipation, unspecified (principal); R10.84 Generalized abdominal pain

== ENCOUNTER → 2017-01-17 | Outpatient (REF) | payer OTHER | LOC: M LAB REF 09:40 | PROVIDERS: ATTEND Physician Assistant | DX: N39.0 Urinary tract infection, site not specified (principal) ==

== ENCOUNTER 2017-02-01 19:44 | Emergency (ER) | payer OTHER ==
[~2017-02-01] VITALS: Ht 154.9 cm; Wt 63.5 kg
[2017-02-01 19:44] VITALS: BP 110/61
[2017-02-01] MEDS ORDERED: PANT40TA2 (19:53)
[2017-02-01] MEDS ORDERED: hydroxyzine (19:53)
[2017-02-01] MEDS ORDERED: BENZ5TA (19:53)
[2017-02-01] MEDS ORDERED: KLON1TAB (19:53)
[2017-02-01] MEDS ORDERED: PROM25TA (19:53)
[2017-02-02] MEDS ORDERED: NS 1,000 ML IV ONE (01:00)
[2017-02-02] MEDS ORDERED: MORPHINE 4 MG/ML 1ML SYRINGE IV PRN (01:00)
[2017-02-02] MEDS ORDERED: ONDANSETRON 4MG/2ML VIAL (J2405) IV ONE (01:00)
[2017-02-02] MEDS ORDERED: ISOVUE-370 76% 100ML VIAL (Q9967) As Ordered ONE (01:22)
[2017-02-02 01:41] LABS: BASO % 0.5 % (0.0-1.0); EOS # 0.2 K/mm3 (0.0-0.50); LARGE UNSTAINED CELL # 0.1 K/mm3 (0.0-0.4); LARGE UNSTAINED CELL % 1.7 % (0.0-4.0); LYMPH # 1.9 K/mm3 (1.5-6.5); LYMPH % 29.3 % (24.0-44.0); MEAN CORPUSCULAR HGB CONC 33.7 g/dl (32.0-36.5); MEAN CORPUSCULAR VOLUME 88.9 fl (80.0-96.0); MONO # 0.3 K/mm3 (0.0-0.8); MONO % 4.2 % (0.0-5.0); NEUTROPHILS # 3.9 K/mm3 (1.8-7.7); NEUTROPHILS % 61.3 % (36.0-66.0); PLATELET COUNT, AUTOMATED 276 k/mm3 (150-450); WHITE BLOOD COUNT 6.4 K/mm3 (4.0-10.0)
[2017-02-02 01:53] LABS: CONTROL LINE HCG INT CTR LINE PRESENT
[2017-02-02 02:01] LABS: ALBUMIN 3.7 GM/DL (3.2-5.2); ALBUMIN/GLOBULIN RATIO 1.61 (1.00-1.93); ALKALINE PHOSPHATASE 51 U/L (45-117); ALT/SGPT 14 U/L (12-78); ANION GAP 6 MEQ/L (8-16); AST/SGOT 14 U/L (15-37); BILIRUBIN,DIRECT 0.1 MG/DL (0.0-0.2); BILIRUBIN,TOTAL 0.3 MG/DL (0.2-1.0); BLOOD UREA NITROGEN 9 MG/DL (7-18); CALCIUM LEVEL 8.7 MG/DL (8.5-10.1); CARBON DIOXIDE LEVEL 33 MEQ/L (21-32); CHLORIDE LEVEL 105 MEQ/L (98-107); GLOMERULAR FILTRATION RATE > 60.0 (>60); GLUCOSE, FASTING 104 MG/DL (70-105); POTASSIUM SERUM 3.6 MEQ/L (3.5-5.1); SODIUM LEVEL 144 MEQ/L (136-145)
[2017-02-02] MEDS: HYDROmorphone HCL 1 MG/ML SYRINGE (J1170) IV PRN ×2 (02:37→03:56)
--- NOTE | 2017-02-02 02:50 | REPUSA ---
CLINICAL HISTORY: Abdominal pain. TECHNIQUE: Multiple axial, sagittal and coronal CT images were obtained through the abdomen and pelvi s after administration of intravenous contrast material. COMMENTS: Fluid filled bowels. The liver is of uniform attenuation without mass or defect. There is no intra or extrahepatic biliary ductal dilatation. The spleen is normal. The gallbladder is within normal limits. The pancreas is of normal contour and attenuation characteristics. There is no evidence of adrenal mass. Both kidneys demonstrate prompt and equal nephrograms. The kidneys are normal in size, shape and conf iguration. There is no evidence of renal or ureteral mass. No renal or ureteral calculi are identifie d. There is no hydroureter or hydronephrosis. Mildly prominent appendix. No evidence for appendicitis. There is no bowel wall thickening. No evide nce for small or large bowel obstruction. There is no evidence of abdominal ascites or lymphadenopath y. There is no evidence of intrinsic or extrinsic bladder mass. There is no pelvic ascites or lymphadeno dara. Images of the lung bases show no evidence of pleural or parenchymal mass. There are no pleural effusi ons. The bony structures are free of lytic or blastic lesions. IMPRESSION: Enteritis. Thank you for your kind referral of this patient.
[2017-02-03] MEDS ORDERED: SIME180C PO (21:59)
== END 2017-02-02 04:48 | disposition home or self-care (01) ==
LOC: M ED 21:41
DX: K58.1 Irritable bowel syndrome with constipation (principal); M54.9 Dorsalgia, unspecified; F32.9 Major depressive disorder, single episode, unspecified; F41.9 Anxiety disorder, unspecified; Z79.899 Other long term (current) drug therapy
CPT/HCPCS: 36415; 74177; 80048; 80076; 83690; 84703; 85025; 93041; 96374; 96375; 96376; 99284; J1170; J2405; Q9967

== ENCOUNTER 2017-02-03 17:31 | Emergency (ER) | payer OTHER ==
[~2017-02-03] VITALS: Ht 154.9 cm; Wt 64.0 kg
[~2017-02-03 17:31] MED LIST changes: +BENZ5TA; +KLON1TAB; +PANT40TA2; +PROM25TA; +hydroxyzine
[2017-02-03 20:30] LABS: BASO % 0.6 % (0.0-1.0); EOS # 0.1 K/mm3 (0.0-0.50); EOS % 1.4 % (0.0-3.0); LARGE UNSTAINED CELL # 0.1 K/mm3 (0.0-0.4); LARGE UNSTAINED CELL % 1.2 % (0.0-4.0); LYMPH # 1.5 K/mm3 (1.5-6.5); LYMPH % 23.7 % (24.0-44.0); MEAN CORPUSCULAR HEMOGLOBIN 29.5 pg (27.0-33.0); MEAN CORPUSCULAR HGB CONC 32.9 g/dl (32.0-36.5); MEAN CORPUSCULAR VOLUME 89.4 fl (80.0-96.0); MONO # 0.3 K/mm3 (0.0-0.8); MONO % 5.1 % (0.0-5.0); NEUTROPHILS # 4.2 K/mm3 (1.8-7.7); PLATELET COUNT, AUTOMATED 296 k/mm3 (150-450); RED CELL DISTRIBUTION WIDTH 13.2 % (11.5-14.5); WHITE BLOOD COUNT 6.2 K/mm3 (4.0-10.0)
[2017-02-03] MEDS ORDERED: SIMETHICONE 80 MG CHEW TAB PO ONE (21:00)
[2017-02-03] MEDS ORDERED: DICYCLOMINE INJ 20MG/2ML (J0500) IM ONE (21:00)
[2017-02-03 21:02] LABS: ALBUMIN 3.7 GM/DL (3.2-5.2); ALBUMIN/GLOBULIN RATIO 1.54 (1.00-1.93); ALKALINE PHOSPHATASE 53 U/L (45-117); ALT/SGPT 17 U/L (12-78); AMYLASE 59 U/L (25-115); ANION GAP 5 MEQ/L (8-16); AST/SGOT 17 U/L (15-37); BILIRUBIN,DIRECT < 0.1 MG/DL (0.0-0.2); BILIRUBIN,TOTAL 0.3 MG/DL (0.2-1.0); BLOOD UREA NITROGEN 7 MG/DL (7-18); CALCIUM LEVEL 8.9 MG/DL (8.5-10.1); CARBON DIOXIDE LEVEL 31 MEQ/L (21-32); CHLORIDE LEVEL 108 MEQ/L (98-107); CREATININE FOR GFR 0.74 MG/DL (0.55-1.02); GLOMERULAR FILTRATION RATE > 60.0 (>60); GLUCOSE, FASTING 91 MG/DL (70-105); POTASSIUM SERUM 3.8 MEQ/L (3.5-5.1); SODIUM LEVEL 144 MEQ/L (136-145); TOTAL PROTEIN 6.1 GM/DL (6.4-8.2)
[2017-02-03] MEDS ORDERED: SIME180C PO (21:59)
[2017-02-03] MEDS ORDERED: MAGNESIUM CITRATE 300 ML BTL PO ONE (22:00)
[2017-02-03 22:22] VITALS: BP 124/88
--- NOTE | 2017-02-04 10:05 | REP ---
Abdominal series: Three views. HISTORY: Abdominal pain. FINDINGS: Upright chest radiograph is normal. There is no evidence of infiltrate or free subdiaphragmatic air. Heart is not enlarged. Pulmonary vasculature is not increased. Supine and erect views of the abdomen demonstrate tubal ligation clamps in the pelvis. Bowel gas pattern is normal. Psoas margins and flank stripes are intact. No evidence of obstruction or significant air fluid level. IMPRESSION: Negative abdominal series. Signed by Jonathon Parker MD 02/04/2017 11:47 A
== END 2017-02-03 22:28 | disposition home or self-care (01) ==
LOC: M ED 18:35
DX: K59.00 Constipation, unspecified (principal); Z79.899 Other long term (current) drug therapy
CPT/HCPCS: 36415; 74022; 80048; 80076; 81001; 82150; 83690; 85025; 96372; 99282; J0500

== ENCOUNTER 2017-03-07 22:46 | Emergency (ER) | payer OTHER ==
[~2017-03-07] VITALS: Ht 154.9 cm; Wt 64.4 kg
[~2017-03-07 22:46] MED LIST changes: +SIME180C PO
[2017-03-08] MEDS ORDERED: NS 1,000 ML IV ONE (00:45)
[2017-03-08 00:57] LABS: CONTROL LINE UCG INT CTR LINE PRESENT
[2017-03-08 01:14] LABS: BASO # 0.1 K/mm3 (0.0-0.2); BASO % 1.3 % (0.0-1.0); EOS # 0.2 K/mm3 (0.0-0.50); EOS % 3.2 % (0.0-3.0); LARGE UNSTAINED CELL # 0.1 K/mm3 (0.0-0.4); LARGE UNSTAINED CELL % 1.8 % (0.0-4.0); LYMPH # 2.2 K/mm3 (1.5-6.5); LYMPH % 34.5 % (24.0-44.0); MEAN CORPUSCULAR HEMOGLOBIN 30.2 pg (27.0-33.0); MEAN CORPUSCULAR VOLUME 91.6 fl (80.0-96.0); MONO # 0.3 K/mm3 (0.0-0.8); MONO % 4.9 % (0.0-5.0); NEUTROPHILS # 3.5 K/mm3 (1.8-7.7); NEUTROPHILS % 54.4 % (36.0-66.0); PLATELET COUNT, AUTOMATED 306 k/mm3 (150-450); RED CELL DISTRIBUTION WIDTH 12.6 % (11.5-14.5); WHITE BLOOD COUNT 6.4 K/mm3 (4.0-10.0)
[2017-03-08 01:36] LABS: ALBUMIN 3.8 GM/DL (3.2-5.2); ALBUMIN/GLOBULIN RATIO 1.31 (1.00-1.93); ALKALINE PHOSPHATASE 51 U/L (45-117); ALT/SGPT 16 U/L (12-78); ANION GAP 5 MEQ/L (8-16); AST/SGOT 13 U/L (15-37); BILIRUBIN,DIRECT 0.1 MG/DL (0.0-0.2); BILIRUBIN,TOTAL 0.5 MG/DL (0.2-1.0); BLOOD UREA NITROGEN 11 MG/DL (7-18); CARBON DIOXIDE LEVEL 31 MEQ/L (21-32); CHLORIDE LEVEL 104 MEQ/L (98-107); CREATININE FOR GFR 0.79 MG/DL (0.55-1.02); GLOMERULAR FILTRATION RATE > 60.0 (>60); GLUCOSE, FASTING 87 MG/DL (70-105); POTASSIUM SERUM 4.1 MEQ/L (3.5-5.1); SODIUM LEVEL 140 MEQ/L (136-145); TOTAL PROTEIN 6.7 GM/DL (6.4-8.2)
[2017-03-08] MEDS ORDERED: GASTROGRAFIN SOLUTION 30ML (Q9963) PO ONE ×2 (02:00)
[2017-03-08] MEDS ORDERED: MORPHINE 2 MG/ML 1ML SYRINGE IV ONE (02:15)
[2017-03-08] MEDS ORDERED: CIPROFLOXACIN 400 MG in APPROPRIATE DILUENT 1 EA IV ONE (03:15)
[2017-03-08] MEDS ORDERED: MORPHINE 4 MG/ML 1ML SYRINGE IV ONE (03:30)
--- NOTE | 2017-03-08 03:50 | REPUSA ---
CLINICAL HISTORY: Abdominal pain. TECHNIQUE: Multiple axial, sagittal and coronal CT images were obtained through the abdomen and pelvi s without administration of IV contrast material. Patient ingested oral contrast. COMMENTS: Comparison is made to the prior exam on 02/02/2017. Fluid filled large bowels. The liver is of uniform attenuation without mass or defect. There is no intra or extrahepatic biliary ductal dilatation. The spleen is normal. The gallbladder is within normal limits. The pancreas is of normal contour and attenuation characteristics. There is no evidence of adrenal mass. The kidneys are normal in size, shape and configuration. No renal or ureteral calculi are identified. There is no hydroureter or hydronephrosis. There is no evidence for appendicitis. There is no bowel wall thickening. No evidence for small or la rge bowel obstruction. There is no evidence of abdominal ascites or lymphadenopathy. There is no evidence of intrinsic or extrinsic bladder mass. There is no pelvic ascites or lymphadeno dara. Again are noted the changes from tubal ligation. Images of the lung bases show no evidence of pleural or parenchymal mass. There are no pleural effusi ons. The bony structures are free of lytic or blastic lesions. IMPRESSION: Fluid filled large bowel suggestive of mild enteritis. Thank you for your kind referral of this patient.
[2017-03-08] MEDS ORDERED: CIPR500T89 PO (04:06)
[2017-03-08 04:23] VITALS: BP 95/55
== END 2017-03-08 04:25 | disposition home or self-care (01) ==
LOC: M ED 03-08 00:26
DX: R10.9 Unspecified abdominal pain (principal); K52.9 Noninfective gastroenteritis and colitis, unspecified; N39.0 Urinary tract infection, site not specified; F32.9 Major depressive disorder, single episode, unspecified; Z79.899 Other long term (current) drug therapy
CPT/HCPCS: 74176; 80048; 80076; 81001; 83690; 84703; 85025; 87086; 96361; 96374; 96375; 96376; 99282; J0744; Q9963

== ENCOUNTER 2017-03-15 18:04 | Emergency (ER) | payer OTHER ==
[~2017-03-15] VITALS: Ht 154.9 cm; Wt 63.0 kg
[~2017-03-15 18:04] MED LIST changes: +CIPR500T89 PO
[2017-03-15] MEDS ORDERED: MORPHINE 4 MG/ML 1ML SYRINGE IV ONE (19:00)
[2017-03-15] MEDS ORDERED: ONDANSETRON 4MG/2ML VIAL (J2405) IV ONE (19:00)
[2017-03-15] MEDS ORDERED: NS 1,000 ML IV ONE (19:00)
[2017-03-15] MEDS ORDERED: GASTROGRAFIN SOLUTION 30ML (Q9963) As Ordered ONE (19:06)
[2017-03-15] MEDS ORDERED: GASTROGRAFIN SOLUTION 30ML (Q9963) PO ONE ×2 (19:20→19:50)
[2017-03-15 19:44] LABS: BASO % 0.7 % (0.0-1.0); EOS # 0.2 K/mm3 (0.0-0.50); EOS % 3.1 % (0.0-3.0); LARGE UNSTAINED CELL # 0.1 K/mm3 (0.0-0.4); LARGE UNSTAINED CELL % 1.1 % (0.0-4.0); LYMPH # 1.5 K/mm3 (1.5-6.5); MEAN CORPUSCULAR HEMOGLOBIN 30.5 pg (27.0-33.0); MEAN CORPUSCULAR HGB CONC 33.2 g/dl (32.0-36.5); MEAN CORPUSCULAR VOLUME 91.9 fl (80.0-96.0); MONO # 0.2 K/mm3 (0.0-0.8); MONO % 3.7 % (0.0-5.0); NEUTROPHILS % 66.3 % (36.0-66.0); PLATELET COUNT, AUTOMATED 216 k/mm3 (150-450); RED CELL DISTRIBUTION WIDTH 12.4 % (11.5-14.5)
[2017-03-15 20:06] LABS: ALBUMIN 3.6 GM/DL (3.2-5.2); ALBUMIN/GLOBULIN RATIO 1.29 (1.00-1.93); ALKALINE PHOSPHATASE 54 U/L (45-117); ALT/SGPT 17 U/L (12-78); AMYLASE 49 U/L (25-115); ANION GAP 3 MEQ/L (8-16); AST/SGOT 11 U/L (15-37); BILIRUBIN,DIRECT 0.1 MG/DL (0.0-0.2); BILIRUBIN,TOTAL 0.3 MG/DL (0.2-1.0); BLOOD UREA NITROGEN 8 MG/DL (7-18); CALCIUM LEVEL 8.8 MG/DL (8.5-10.1); CARBON DIOXIDE LEVEL 32 MEQ/L (21-32); CHLORIDE LEVEL 106 MEQ/L (98-107); CREATININE FOR GFR 0.79 MG/DL (0.55-1.02); GLOMERULAR FILTRATION RATE > 60.0 (>60); GLUCOSE, FASTING 81 MG/DL (70-105); SODIUM LEVEL 141 MEQ/L (136-145); TOTAL PROTEIN 6.4 GM/DL (6.4-8.2)
[2017-03-15 20:36] VITALS: BP 120/62
[2017-03-15] MEDS ORDERED: KETOROLAC 30 MG/ML VIAL (J1885) IV ONE (20:45)
== END 2017-03-15 21:04 | disposition home or self-care (01) ==
LOC: M ED 18:56
DX: R10.84 Generalized abdominal pain (principal); F31.9 Bipolar disorder, unspecified; Z79.899 Other long term (current) drug therapy

== ENCOUNTER 2017-03-19 13:09 | Emergency (ER) | payer OTHER ==
[~2017-03-19] VITALS: Ht 154.9 cm; Wt 63.0 kg
[2017-03-19] MEDS ORDERED: TRAZ100T4 PO (13:29)
--- NOTE | 2017-03-19 15:39 | REP ---
Clinical: Abdominal distension. Technique: Single supine view of the abdomen and pelvis. Comparison: 03/18/2017 at 10:00 a.m. Findings: Multiple sitz markers are again identified involving the ascending colon. The bowel gas pattern is otherwise nonspecific. No organomegaly. No abnormal calcifications. Evidence for prior tubal ligation. Skeletal structures intact. Impression: Multiple sitz markers again identified in the right lower abdomen likely within the ascending colon. The bowel gas pattern is nonspecific. Signed by Magdy Navarrete MD 03/19/2017 03:31 P
[2017-03-19 15:51] VITALS: BP 109/69
== END 2017-03-19 15:52 | disposition home or self-care (01) ==
LOC: M ED 14:42
DX: K59.00 Constipation, unspecified (principal); Z87.891 Personal history of nicotine dependence; Z79.899 Other long term (current) drug therapy

== ENCOUNTER → 2017-03-19 | Outpatient (CLI) | payer OTHER ==
--- NOTE | 2017-03-19 10:28 | REP ---
Clinical: Chronic constipation. Technique: Single supine view of the abdomen and pelvis. Findings: The bowel gas pattern is nonspecific. Innumerable sitz markers are identified in the distal ileum and ascending colon. There is no evidence for bowel obstruction. No organomegaly. Evidence for prior tubal ligation. Phleboliths noted in the pelvis. Skeletal structures are intact. Impression: Nonspecific bowel gas pattern with sitz markers in the distal small bowel and ascending colon. Signed by Magdy Navarrete MD 03/19/2017 10:19 A
== END ==
LOC: M WUC 09:51
DX: K59.00 Constipation, unspecified (principal)

== ENCOUNTER → 2017-03-21 | Outpatient (CLI) | payer OTHER ==
--- NOTE | 2017-03-21 10:57 | REP ---
Clinical: Constipation. Sitz marker study. Technique: Single supine view of the abdomen and pelvis. Comparison: 03/19/2017. Findings: Sitz markers are again identified with in the ascending colon without significant change from prior examination. Mild to moderate underlying fecal stasis cannot be excluded. No evidence for bowel obstruction. Tubal ligation noted. Skeletal structures intact. Impression: Sitz markers unchanged and remain relatively stable in the ascending colon. Mild fecal stasis suggested. Signed by Magdy Navarrete MD 03/21/2017 10:49 A
== END ==
LOC: M WUC 10:33
PROVIDERS: ATTEND Surgery
DX: K59.09 Other constipation (principal)

== ENCOUNTER → 2017-03-23 | Outpatient (CLI) | payer OTHER ==
--- NOTE | 2017-03-23 10:28 | REP ---
Clinical: Constipation and abdominal pain. Comparison: 03/21/2017. Technique: Single supine view of the abdomen and pelvis. Findings: Current examination demonstrates a nonspecific bowel gas pattern with sitz markers now identified in the ascending colon / hepatic flexure, splenic flexure as well as the proximal sigmoid colon. No organomegaly. Skeletal structures intact and stable. Evidence for prior tubal ligation. Impression: 1. Few sitz markers now identified within the splenic flexure and sigmoid colon along with the majority retained in the ascending colon/hepatic flexure. 2. Nonspecific bowel pattern. Signed by Magdy Navarrete MD 03/23/2017 10:18 A
== END ==
LOC: M WUC 09:51
PROVIDERS: ATTEND Surgery
DX: K59.00 Constipation, unspecified (principal)

== ENCOUNTER 2017-04-23 12:24 | Emergency (ER) | payer OTHER ==
[~2017-04-23] VITALS: Ht 154.9 cm; Wt 60.8 kg
[~2017-04-23 12:24] MED LIST changes: +BENZ0.5T; -BENZ5TA; +CIPR-249 PO; -CIPR500T89 PO; -KLON1TAB; +KLON1TAB PO; +TRAZ-136 PO; -TRAZ100T4 PO
[2017-04-23] MEDS ORDERED: ONDANSETRON 4MG/2ML VIAL (J2405) IV ONE (13:15)
[2017-04-23] MEDS ORDERED: NS 1,000 ML IV ONE (13:15)
[2017-04-23] MEDS ORDERED: GASTROGRAFIN SOLUTION 30ML PO ONE (13:30)
[2017-04-23 13:33] LABS: BASO % 0.5 % (0.0-1.0); EOS # 0.1 K/mm3 (0.0-0.50); EOS % 1.3 % (0.0-3.0); LARGE UNSTAINED CELL # 0.1 K/mm3 (0.0-0.4); LARGE UNSTAINED CELL % 0.9 % (0.0-4.0); LYMPH # 1.5 K/mm3 (1.5-6.5); LYMPH % 17.8 % (24.0-44.0); MEAN CORPUSCULAR HEMOGLOBIN 30.1 pg (27.0-33.0); MEAN CORPUSCULAR HGB CONC 34.1 g/dl (32.0-36.5); MEAN CORPUSCULAR VOLUME 88.4 fl (80.0-96.0); MONO # 0.4 K/mm3 (0.0-0.8); MONO % 5.3 % (0.0-5.0); NEUTROPHILS % 74.1 % (36.0-66.0); PLATELET COUNT, AUTOMATED 331 k/mm3 (150-450); WHITE BLOOD COUNT 8.1 K/mm3 (4.0-10.0)
[2017-04-23 13:42] LABS: CONTROL LINE HCG INT CTR LINE PRESENT
[2017-04-23] MEDS: fentaNYL 100 MCG/2 ML INJECTION (J3010) IV PRN ×4 (13:44→15:31)
[2017-04-23 13:57] LABS: ALBUMIN/GLOBULIN RATIO 1.18 (1.00-1.93); ALKALINE PHOSPHATASE 66 U/L (45-117); ALT/SGPT 14 U/L (12-78); ANION GAP 7 MEQ/L (8-16); AST/SGOT 5 U/L (15-37); BILIRUBIN,DIRECT 0.2 MG/DL (0.0-0.2); BILIRUBIN,TOTAL 0.8 MG/DL (0.2-1.0); BLOOD UREA NITROGEN 11 MG/DL (7-18); CALCIUM LEVEL 9.6 MG/DL (8.5-10.1); CARBON DIOXIDE LEVEL 28 MEQ/L (21-32); CHLORIDE LEVEL 104 MEQ/L (98-107); CREATININE FOR GFR 0.66 MG/DL (0.55-1.02); GLOMERULAR FILTRATION RATE > 60.0 (>60); GLUCOSE, FASTING 81 MG/DL (70-105); POTASSIUM SERUM 3.8 MEQ/L (3.5-5.1); SODIUM LEVEL 139 MEQ/L (136-145); TOTAL PROTEIN 7.4 GM/DL (6.4-8.2)
[2017-04-23] MEDS ORDERED: GASTROGRAFIN SOLUTION 30ML (Q9963) PO ONE (14:00)
[2017-04-23] MEDS ORDERED: CEPHALEXIN 500 MG CAP PO ONE (14:15)
[2017-04-23] MEDS ORDERED: ISOVUE-370 76% 100ML VIAL (Q9967) As Ordered ONE (14:49)
--- NOTE | 2017-04-23 15:19 | REP ---
Clinical: Recent total colectomy with right lower quadrant pain. Technique: Axial contrast enhanced images from the lung bases to the pubic symphysis using oral and 100 ml Isovue 370 intravenous contrast material with coronal and sagittal re-formations. Comparison: 03/08/2017. Findings: The patient is noted to be status post total colectomy with enterosigmoid anastomosis at the right lower quadrant. Inflammatory stranding and small amount of fluid surrounds the site of anastomosis suggesting acute infectious/inflammatory change. No associated drainable collection/abscess identified. Small amount of free fluid extends into the pelvis. There is no free air. The bowel is otherwise unremarkable and without obstruction or distension. Liver, spleen, pancreas, gallbladder, bilateral adrenal glands and kidneys are normal. Pelvis demonstrates normal bladder and age-appropriate uterus/adnexa. The patient is status post tubal ligation. No intraperitoneal or retroperitoneal adenopathy. Vasculature including abdominal aorta appear normal. Surrounding musculoskeletal structures are intact. Impression: 1. Stranding in the right lower quadrant at the site of anastomosis with small amount of free fluid suggests acute infectious/inflammatory changes and requires close clinical observation. No drainable collection/abscess, free air or bowel obstruction noted. Signed by Magdy Navarrete MD 04/23/2017 03:10 P
[2017-04-23] MEDS ORDERED: KEFL500C17 PO (16:14)
[2017-04-23 16:27] VITALS: BP 105/59
--- NOTE | 2017-04-24 07:13 | ED PDOC ---
Post-Departure Follow-Up radiology report faxed to Vaibhav Amaral Sarah MD Apr 24, 2017 07:13
== END 2017-04-23 16:45 | disposition home or self-care (01) ==
LOC: M ED 12:24
DX: G89.18 Other acute postprocedural pain (principal); R10.9 Unspecified abdominal pain; N39.0 Urinary tract infection, site not specified; R19.7 Diarrhea, unspecified; R11.0 Nausea; F41.9 Anxiety disorder, unspecified; F31.9 Bipolar disorder, unspecified; Z87.891 Personal history of nicotine dependence; Z79.899 Other long term (current) drug therapy

== ENCOUNTER 2017-05-20 18:47 | Emergency (ER) | payer MEDICAID, OTHER ==
[~2017-05-20] VITALS: Ht 154.9 cm; Wt 60.6 kg
[~2017-05-20 18:47] MED LIST changes: +KEFL500C17 PO
[2017-05-20] MEDS ORDERED: ONDA4TAB5 (19:43)
[2017-05-20] MEDS ORDERED: MORP15TA2 (19:43)
[2017-05-20 20:16] LABS: CONTROL LINE UCG INT CTR LINE PRESENT
[2017-05-20] MEDS ORDERED: KETOROLAC 30 MG/ML VIAL (J1885) IV ONE (21:45)
[2017-05-20] MEDS ORDERED: TRIMETHOBENZAMIDE HCL INJ 200 MG/2 ML VIAL (J3250) IM ONE (21:45)
[2017-05-20] MEDS ORDERED: GASTROGRAFIN SOLUTION 30ML (Q9963) PO ONE ×2 (22:00→22:30)
[2017-05-20 22:03] LABS: BASO % 0.6 % (0.0-1.0); EOS # 0.1 K/mm3 (0.0-0.50); EOS % 2.8 % (0.0-3.0); LARGE UNSTAINED CELL # 0.1 K/mm3 (0.0-0.4); LYMPH # 1.5 K/mm3 (1.5-6.5); LYMPH % 34.7 % (24.0-44.0); MEAN CORPUSCULAR HEMOGLOBIN 29.2 pg (27.0-33.0); MEAN CORPUSCULAR HGB CONC 33.4 g/dl (32.0-36.5); MEAN CORPUSCULAR VOLUME 87.5 fl (80.0-96.0); MONO # 0.2 K/mm3 (0.0-0.8); MONO % 4.2 % (0.0-5.0); NEUTROPHILS # 2.5 K/mm3 (1.8-7.7); NEUTROPHILS % 55.7 % (36.0-66.0); PLATELET COUNT, AUTOMATED 257 k/mm3 (150-450); RED CELL DISTRIBUTION WIDTH 13.2 % (11.5-14.5); WHITE BLOOD COUNT 4.4 K/mm3 (4.0-10.0)
[2017-05-20 22:28] LABS: ALBUMIN 3.6 GM/DL (3.2-5.2); ALBUMIN/GLOBULIN RATIO 1.29 (1.00-1.93); ALKALINE PHOSPHATASE 49 U/L (45-117); ALT/SGPT 14 U/L (12-78); AMYLASE 56 U/L (25-115); ANION GAP 4 MEQ/L (8-16); AST/SGOT 10 U/L (15-37); BILIRUBIN,TOTAL 0.5 MG/DL (0.2-1.0); BLOOD UREA NITROGEN 11 MG/DL (7-18); CALCIUM LEVEL 8.8 MG/DL (8.5-10.1); CARBON DIOXIDE LEVEL 28 MEQ/L (21-32); CHLORIDE LEVEL 104 MEQ/L (98-107); CREATININE FOR GFR 0.73 MG/DL (0.55-1.02); GLOMERULAR FILTRATION RATE > 60.0 (>60); GLUCOSE, FASTING 89 MG/DL (70-105); POTASSIUM SERUM 3.5 MEQ/L (3.5-5.1); SODIUM LEVEL 136 MEQ/L (136-145); TOTAL PROTEIN 6.4 GM/DL (6.4-8.2)
[2017-05-20] MEDS ORDERED: MORPHINE 4 MG/ML 1ML SYRINGE IV ONE (23:00)
[2017-05-20] MEDS ORDERED: ISOVUE-370 76% 100ML VIAL (Q9967) As Ordered ONE (23:20)
--- NOTE | 2017-05-20 23:50 | REPUSA ---
CT of the abdomen and pelvis with contrast Clinical statement: Pain. Technique: Multiple axial CT images were obtained from the base of the lungs through the floor of the pelvis utilizing 5 mm axial slices after administration of oral and nonionic intravenous contrast. C oronal and sagittal reconstructions were also obtained. Comparison: 03/08/2017. Findings: Chest: The visualized lung bases are clear. Abdomen: The spleen, pancreas, kidneys, gallbladder, and adrenal glands are unremarkable.. There is a well-defined hypodense lesion in the posterior aspect of segment VII, measuring 2.2 x 2.6 cm. There is a smaller lesion demonstrated in the anterior right lobe, measuring 1.5 x 1.3 cm. These lesions we re not demonstrate the prior study. The hepatic and portal veins are patent. The aorta is within norm al limits. There is no evidence of abdominal lymphadenopathy or ascites. Pelvis: The bowel is unremarkable, with no obstructive or inflammatory changes.. The patient is statu s post partial colectomy. The anastomosis appears unremarkable. The urinary bladder is within normal limits. The other pelvic structures appear grossly intact. There is no evidence of pelvic lymphadenop athy or ascites. Bones: There are no suspicious osseous abnormalities seen. Impression: 1. There are 2 new hypodense solid lesions within the liveras described, with are not seen on the akbar or study. These are nonspecific. Findings could represent focal fatty infiltration,, although underly ing masses cannot completely be excluded. MRI using liver protocol is recommended for further evalua tion. 2. Postsurgical changes within the bowel are grossly stable. No obstructive or inflammatory bowel brian nges. 3. The other CT findings are stable.
[2017-05-21] MEDS ORDERED: MORPHINE 4 MG/ML 1ML SYRINGE IV ONE (00:15)
[2017-05-21] MEDS ORDERED: NORCOTAB PO (00:15)
[2017-05-21] MEDS ORDERED: TIGA300C2 PO (00:15)
[2017-05-21 00:41] VITALS: BP 153/101
--- NOTE | 2017-05-21 18:45 | ED PDOC ---
Post-Departure Follow-Up dr doug roland faxed formal report of ct abd/p for fu waltg Milagros Sanchez MD May 21, 2017 18:45
== END 2017-05-21 01:04 | disposition home or self-care (01) ==
LOC: M ED 18:47
DX: R19.7 Diarrhea, unspecified (principal); R11.2 Nausea with vomiting, unspecified; R10.12 Left upper quadrant pain; R10.31 Right lower quadrant pain; R93.2 Abnormal findings on diagnostic imaging of liver and biliary tract; Z90.49 Acquired absence of other specified parts of digestive tract; F41.9 Anxiety disorder, unspecified; F32.9 Major depressive disorder, single episode, unspecified; Z87.891 Personal history of nicotine dependence; Z79.899 Other long term (current) drug therapy
CPT/HCPCS: 74177; 80053; 81001; 82150; 83690; 84703; 85025; 86140; 87086; 87507; 96372; 96374; 96375; 96376; 99283; J1885; J3250; Q9963; Q9967

== ENCOUNTER 2017-05-27 22:33 | Emergency (ER) | payer MEDICAID ==
[~2017-05-27] VITALS: Ht 154.9 cm; Wt 61.0 kg
[~2017-05-27 22:33] MED LIST changes: +MORP15TA2; +NORCOTAB PO; +ONDA4TAB5; +TIGA300C2 PO
[2017-05-27 22:37] VITALS: BP 123/82
[2017-05-28] MEDS ORDERED: NS 1,000 ML IV ONE (00:15)
[2017-05-28] MEDS ORDERED: METOCLOPRAMIDE INJ 10MG/2ML VIAL (J2765) IV ONE (00:15)
[2017-05-28 00:53] LABS: BASO % 0.6 % (0.0-1.0); EOS # 0.1 K/mm3 (0.0-0.50); EOS % 2.7 % (0.0-3.0); LARGE UNSTAINED CELL # 0.1 K/mm3 (0.0-0.4); LARGE UNSTAINED CELL % 2.1 % (0.0-4.0); LYMPH # 1.5 K/mm3 (1.5-6.5); LYMPH % 33.9 % (24.0-44.0); MEAN CORPUSCULAR HEMOGLOBIN 28.6 pg (27.0-33.0); MEAN CORPUSCULAR HGB CONC 32.9 g/dl (32.0-36.5); MEAN CORPUSCULAR VOLUME 87.1 fl (80.0-96.0); MONO # 0.2 K/mm3 (0.0-0.8); MONO % 5.1 % (0.0-5.0); NEUTROPHILS # 2.3 K/mm3 (1.8-7.7); NEUTROPHILS % 55.6 % (36.0-66.0); PLATELET COUNT, AUTOMATED 236 k/mm3 (150-450); RED CELL DISTRIBUTION WIDTH 13.1 % (11.5-14.5); WHITE BLOOD COUNT 4.2 K/mm3 (4.0-10.0)
[2017-05-28 00:54] LABS: CONTROL LINE UCG INT CTR LINE PRESENT
[2017-05-28] MEDS ORDERED: KETOROLAC 30 MG/ML VIAL (J1885) IV ONE (01:00)
[2017-05-28 01:02] LABS: INR 1.12
[2017-05-28 01:13] LABS: ALBUMIN 3.3 GM/DL (3.2-5.2); ALBUMIN/GLOBULIN RATIO 1.22 (1.00-1.93); ALKALINE PHOSPHATASE 44 U/L (45-117); ALT/SGPT 13 U/L (12-78); ANION GAP 7 MEQ/L (8-16); AST/SGOT 12 U/L (15-37); BILIRUBIN,DIRECT < 0.1 MG/DL (0.0-0.2); BILIRUBIN,TOTAL 0.4 MG/DL (0.2-1.0); BLOOD UREA NITROGEN 10 MG/DL (7-18); CALCIUM LEVEL 8.7 MG/DL (8.5-10.1); CARBON DIOXIDE LEVEL 26 MEQ/L (21-32); CHLORIDE LEVEL 109 MEQ/L (98-107); CREATININE FOR GFR 0.51 MG/DL (0.55-1.02); GLOMERULAR FILTRATION RATE > 60.0 (>60); GLUCOSE, FASTING 83 MG/DL (70-105); POTASSIUM SERUM 3.8 MEQ/L (3.5-5.1); SODIUM LEVEL 142 MEQ/L (136-145)
[2017-05-28] MEDS ORDERED: ONDANSETRON 4 MG ORAL DISINTEGRATING TAB (S0181) PO ONE (03:30)
== END 2017-05-28 03:38 | disposition home or self-care (01) ==
LOC: M ED 22:33
DX: R51 Headache (principal)
CPT/HCPCS: 80048; 80076; 81001; 81025; 83605; 83690; 84703; 85025; 85610; 85730; 96374; 96375; 99283; J1885; J2765

== ENCOUNTER 2017-07-05 10:02 | Emergency (ER) | payer MEDICAID, OTHER ==
[~2017-07-05] VITALS: Ht 154.9 cm; Wt 59.5 kg
[2017-07-05] MEDS ORDERED: TRAZ1TAB14 PO (10:09)
[2017-07-05] MEDS ORDERED: OXCA600T PO (10:09)
[2017-07-05] MEDS ORDERED: PERCOCET 5MG/325MG TAB PO ONE (10:30)
[2017-07-05] MEDS ORDERED: NORC1TAB4 PO (11:10)
--- NOTE | 2017-07-05 11:14 | REP ---
Clinical: Trauma . Technique: AP, lateral, bilateral oblique views left ankle . Findings: No acute fracture or dislocation. Skeletal structures and joint spaces are intact and normal. Ankle mortise appears stable. No subcutaneous emphysema or radiodense foreign body. Impression: Normal age-appropriate left ankle radiograph series. Signed by Magdy Navarrete MD 07/05/2017 10:49 A
--- NOTE | 2017-07-05 11:14 | REP ---
Clinical: Trauma. Fall. . Technique: AP, lateral, bilateral oblique views of the left elbow. Findings: No acute fracture or dislocation is appreciated. Joint spaces and surrounding soft tissues appear normal. Lateral view demonstrates normal positioning to the anterior and posterior fat pads without evidence for effusion/hemarthrosis. No subcutaneous emphysema or foreign body identified. Impression: Normal age-appropriate left elbow radiographs. Signed by Magdy Navarrete MD 07/05/2017 10:48 A
[2017-07-05 11:18] VITALS: BP 117/53
== END 2017-07-05 11:20 | disposition home or self-care (01) ==
LOC: M ED 10:02
DX: S50.02XA Contusion of left elbow, initial encounter (principal); S93.402A Sprain of unspecified ligament of left ankle, initial encounter; W06.XXXA Fall from bed, initial encounter; Y92.019 Unspecified place in single-family (private) house as the place of occurrence of the external cause; Y93.89 Activity, other specified; Y99.8 Other external cause status; K55.9 Vascular disorder of intestine, unspecified; F31.9 Bipolar disorder, unspecified; Z90.49 Acquired absence of other specified parts of digestive tract; Z79.899 Other long term (current) drug therapy

== ENCOUNTER → 2017-07-14 | Outpatient (REF) | payer OTHER ==
[~2017-07-14] MED LIST changes: +AUGM875T28 PO; +FOLI1TAB4 PO; +LYRI75CA PO; +NORC1TAB4 PO; +OXCA600T PO; +PREG25CA PO; +PROBCAP14 PO; +THIA100TA PO; +TRAZ1TAB14 PO; +VITA500T53 PO; +VITMTA PO
[2017-07-14 13:58] LABS: BASO % 0.4 % (0.0-1.0); EOS # 0.1 K/mm3 (0.0-0.50); LARGE UNSTAINED CELL # 0.1 K/mm3 (0.0-0.4); LARGE UNSTAINED CELL % 1.2 % (0.0-4.0); LYMPH # 0.9 K/mm3 (1.5-6.5); LYMPH % 18.1 % (24.0-44.0); MEAN CORPUSCULAR HEMOGLOBIN 29.5 pg (27.0-33.0); MEAN CORPUSCULAR HGB CONC 34.4 g/dl (32.0-36.5); MEAN CORPUSCULAR VOLUME 85.9 fl (80.0-96.0); MONO # 0.2 K/mm3 (0.0-0.8); NEUTROPHILS # 3.6 K/mm3 (1.8-7.7); NEUTROPHILS % 74.5 % (36.0-66.0); PLATELET COUNT, AUTOMATED 253 k/mm3 (150-450); WHITE BLOOD COUNT 4.9 K/mm3 (4.0-10.0)
[2017-07-14 14:07] LABS: CONTROL LINE MONO INT CTR LINE PRESENT
[2017-07-14 14:14] LABS: ALBUMIN 3.9 GM/DL (3.2-5.2); ALBUMIN/GLOBULIN RATIO 1.34 (1.00-1.93); ALKALINE PHOSPHATASE 61 U/L (45-117); ALT/SGPT 17 U/L (12-78); ANION GAP 3 MEQ/L (8-16); AST/SGOT 10 U/L (15-37); BILIRUBIN,TOTAL 0.4 MG/DL (0.2-1.0); BLOOD UREA NITROGEN 12 MG/DL (7-18); CARBON DIOXIDE LEVEL 31 MEQ/L (21-32); CHLORIDE LEVEL 100 MEQ/L (98-107); CREATININE FOR GFR 0.57 MG/DL (0.55-1.02); GLOMERULAR FILTRATION RATE > 60.0 (>60); GLUCOSE, FASTING 79 MG/DL (70-105); POTASSIUM SERUM 4.3 MEQ/L (3.5-5.1); SODIUM LEVEL 134 MEQ/L (136-145); TOTAL PROTEIN 6.8 GM/DL (6.4-8.2)
== END ==
LOC: M LAB REF 09:57
PROVIDERS: ATTEND Physician Assistant
DX: R53.83 Other fatigue (principal); J02.9 Acute pharyngitis, unspecified

== ENCOUNTER 2017-07-15 13:43 | Emergency (ER) | payer OTHER ==
[~2017-07-15] VITALS: Ht 154.9 cm; Wt 60.9 kg
[2017-07-15 13:43] VITALS: BP 113/61
[~2017-07-15 13:43] MED LIST changes: -AUGM875T28 PO; -FOLI1TAB4 PO; -LYRI75CA PO; -PREG25CA PO; -PROBCAP14 PO; -THIA100TA PO; -VITA500T53 PO; -VITMTA PO
[2017-07-15] MEDS ORDERED: AUGM875T28 PO (17:13)
[2017-07-15] MEDS ORDERED: NORCOTAB PO (17:13)
[2017-07-15] MEDS ORDERED: ONDANSETRON 4 MG ORAL DISINTEGRATING TAB (S0181) PO ONE (17:15)
[2017-07-15] MEDS ORDERED: AUGMENTIN 875 MG TAB PO ONE (17:15)
[2017-07-15] MEDS ORDERED: KETOROLAC 60 MG/2 ML VIAL (J1885) IM ONE (17:15)
== END 2017-07-15 17:29 | disposition home or self-care (01) ==
LOC: M ED 13:43
DX: J01.90 Acute sinusitis, unspecified (principal); F41.9 Anxiety disorder, unspecified; F33.9 Major depressive disorder, recurrent, unspecified; Z79.899 Other long term (current) drug therapy
CPT/HCPCS: 96372; 99282; J1885

== ENCOUNTER 2017-07-18 10:14 | Emergency (ER) | payer OTHER ==
[~2017-07-18] VITALS: Ht 154.9 cm; Wt 60.4 kg
[~2017-07-18 10:14] MED LIST changes: +AUGM875T28 PO
[2017-07-18] MEDS ORDERED: NAPROXEN 250 MG TAB PO ONE (11:00)
[2017-07-18] MEDS ORDERED: ALBUTEROL SULFATE 2.5 MG/0.5 ML INH NEB SOLN NEB ONE (11:00)
[2017-07-18] MEDS ORDERED: predniSONE 20 MG TAB PO ONE (12:00)
[2017-07-18] MEDS ORDERED: KETOROLAC 60 MG/2 ML VIAL (J1885) IM ONE (12:15)
[2017-07-18] MEDS ORDERED: NS 1,000 ML IV ONE (13:45)
[2017-07-18] MEDS ORDERED: PROMETHAZINE INJ 25 MG/ML VIAL (J2550) IV ONE (13:45)
[2017-07-18 15:31] VITALS: BP 120/71
--- NOTE | 2017-07-18 15:54 | REP ---
TWO VIEW CHEST: Comparison single view chest 02/03/2017. There is no evidence of acute infiltrate. No pleural effusion is seen. The heart is normal in size. The mediastinal silhouette is unremarkable. The visualized osseous structures are intact. IMPRESSION: No acute pulmonary disease. Please note that this study appeared on my work list for interpretation at 2:37 p.m. Signed by Stepan Tang MD 07/18/2017 05:42 P
== END 2017-07-18 15:33 | disposition home or self-care (01) ==
LOC: M ED 10:14
DX: J01.10 Acute frontal sinusitis, unspecified (principal); K76.9 Liver disease, unspecified; K55.059 Acute (reversible) ischemia of intestine, part and extent unspecified; F31.9 Bipolar disorder, unspecified; F41.9 Anxiety disorder, unspecified; M54.9 Dorsalgia, unspecified; Z90.49 Acquired absence of other specified parts of digestive tract; F17.290 Nicotine dependence, other tobacco product, uncomplicated; Z79.899 Other long term (current) drug therapy
CPT/HCPCS: 71020; 87804; 96361; 96372; 96374; 99283; J1885

== ENCOUNTER 2017-08-06 14:19 | Inpatient (IN) | payer OTHER ==
[~2017-08-06] VITALS: Ht 154.9 cm; Wt 62.0 kg
[2017-08-06] MEDS ORDERED: PREG25CA PO (14:29)
[2017-08-06 16:30] LABS: BASO % 0.4 % (0.0-1.0); EOS # 0.1 10^3/uL (0.0-0.50); IMMATURE GRANULOCYTE % 0.2 % (0-0); LYMPH # 0.7 10^3/uL (1.5-6.5); LYMPH % 12.1 % (24.0-44.0); MEAN CORPUSCULAR HEMOGLOBIN 28.4 pg (27.0-33.0); MEAN CORPUSCULAR HGB CONC 33.2 g/dl (32.0-36.5); MEAN CORPUSCULAR VOLUME 85.4 fl (80.0-96.0); MONO # 0.2 10^3/uL (0.0-0.8); MONO % 4.3 % (0.0-5.0); NEUTROPHILS # 4.4 10^3/uL (1.8-7.7); PLATELET COUNT, AUTOMATED 195 10^3/uL (150-450); RED CELL DISTRIBUTION WIDTH 13.2 % (11.5-14.5); WHITE BLOOD COUNT 5.4 10^3/uL (4.0-10.0)
[2017-08-06] MEDS ORDERED: NS 1,000 ML IV ONE ×2 (16:30→19:15)
[2017-08-06 16:36] LABS: CONTROL LINE HCG INT CTR LINE PRESENT
[2017-08-06 16:47] LABS: ALBUMIN 3.3 GM/DL (3.2-5.2); ALBUMIN/GLOBULIN RATIO 1.32 (1.00-1.93); ALKALINE PHOSPHATASE 50 U/L (45-117); ALT/SGPT 16 U/L (12-78); ANION GAP 5 MEQ/L (8-16); AST/SGOT 12 U/L (15-37); BILIRUBIN,DIRECT 0.2 MG/DL (0.0-0.2); BILIRUBIN,TOTAL 0.6 MG/DL (0.2-1.0); BLOOD UREA NITROGEN 9 MG/DL (7-18); CALCIUM LEVEL 8.4 MG/DL (8.5-10.1); CARBON DIOXIDE LEVEL 27 MEQ/L (21-32); CHLORIDE LEVEL 105 MEQ/L (98-107); CREATININE FOR GFR 0.49 MG/DL (0.55-1.02); GLOMERULAR FILTRATION RATE > 60.0 (>60); GLUCOSE, FASTING 79 MG/DL (70-105); POTASSIUM SERUM 4.3 MEQ/L (3.5-5.1); SODIUM LEVEL 137 MEQ/L (136-145); TOTAL PROTEIN 5.8 GM/DL (6.4-8.2)
[2017-08-06 16:50] LABS: METHADONE URINE NEGATIVE (NEGATIVE)
[2017-08-06 17:02] LABS: VENOUS BASE EXCESS -1.5 (-2.0-2.0); VENOUS O2 SATURATION 67.4 % (60.0-80.0); VENOUS PARTIAL PRESSURE CO2 47.4 mmHg (38.0-50.0); VENOUS PARTIAL PRESSURE O2 35.2 mmHg (30.0-50.0); VENOUS STANDARD HCO3 22.6 MEQ/L; VENOUS TOTAL CO2 26.2 MEQ/L (24.0-28.0)
[2017-08-06] MEDS ORDERED: ACETAMINOPHEN TAB 650MG DOSE (2X325MG) PO ONE (17:15)
--- NOTE | 2017-08-06 17:18 | REP ---
Chest two views HISTORY: Altered mental status Comparison: 07/18/2017 The lungs are clear. The heart is normal in size. The pulmonary vasculature is normal in appearance. The bony structure is intact. IMPRESSION: No acute disease. Signed by Denis Bright MD 08/06/2017 05:10 P
[2017-08-06] MEDS ORDERED: LACTULOSE 20 GM/30 ML SYRUP UD PO ONE (18:00)
[2017-08-06] MEDS ORDERED: MORPHINE 4 MG/ML 1ML SYRINGE IV ONE ×2 (18:00→20:30)
[2017-08-06] MEDS ORDERED: ONDANSETRON 4MG/2ML VIAL (J2405) IV ONE (18:15)
[2017-08-06] MEDS ORDERED: ONDANSETRON 4MG/2ML VIAL (J2405) As Ordered ONE (18:17)
--- NOTE | 2017-08-06 18:26 | REP ---
CT Head without contrast HISTORY: Headache COMPARISON: 09/04/2011 There is no intraparenchymal hemorrhage, acute infarct, mass or midline shift. The ventricular system is normal in appearance. There is no extra cerebral collection. There is no fracture. The visualized sinuses are clear. IMPRESSION: There is no intracranial lesion. Signed by Denis Bright MD 08/06/2017 06:17 P
[2017-08-06] MEDS ORDERED: LYRI75CA PO (19:09)
[2017-08-06] MEDS ORDERED: VITMTA PO (19:09)
[2017-08-06] MEDS ORDERED: PROBCAP14 PO (19:09)
[2017-08-06 19:48] LABS: INR 1.07
[2017-08-06] MEDS ORDERED: KETOROLAC 30 MG/ML VIAL (J1885) IV ONE (20:00)
[2017-08-06] MEDS ORDERED: LORazepam 2 MG/ML VIAL (J2060) IV STA (20:25)
--- NOTE | 2017-08-06 20:41 | ECGEPIP ---
Stationary ECG Study [facility] - ED Test Date: 2017-08-06 Pat Name: DAKOTA YING Department: Room: - Gender: F [employer] Instructor: ashlee : 1990 Requested By: Kumar Salguero Order Number: [id number] Reading MD: Rosette Pugh Measurements Intervals [place] Rate: 90 P: 41 NH: 150 QRS: 28 QRSD: 90 T: 43 QT: 348 QTc: 426 Interpretive Statements SINUS RHYTHM NO PRIOR FOR COMPARISON Electronically Signed On 08-06-2017 20:41:12 EDT by Rosette Pugh
[2017-08-06 20:56] LABS: OSMOLALITY SERUM 287 MOSM/KG (275-295)
[2017-08-06 21:21] LABS: COLOR, CSF COLORLESS (COLORLESS); CSF TUBE# CELL CNT TUBE 4
[2017-08-06 21:22] LABS: APPEARANCE, CSF CLEAR (CLEAR); APPEARANCE, CSF HAZY (CLEAR); COLOR, CSF PINK (COLORLESS); CSF TUBE# CELL CNT TUBE 1
[2017-08-06 21:38] LABS: MAGNESIUM LEVEL 1.8 MG/DL (1.8-2.4); T UPTAKE 35 % (30-39)
[2017-08-06] MEDS: HYDROmorphone HCL 1 MG/ML SYRINGE (J1170) IV PRN (21:39)
[2017-08-06 21:40] LABS: CSF DIFF IF INDICATED? NO (NO)
[2017-08-06 21:41] LABS: CSF DIFF IF INDICATED? NO (NO)
[2017-08-06 21:44] LABS: GLUCOSE CSF 56 MG/DL (40-75)
[2017-08-06] MEDS ORDERED: ISOVUE-370 76% 100ML VIAL (Q9967) As Ordered ONE (22:05)
[2017-08-06] MEDS ORDERED: FOLIC ACID 1 MG TAB PO SCH (22:15)
[2017-08-06] MEDS ORDERED: THIAMINE 100 MG TAB PO SCH (22:15)
--- NOTE | 2017-08-06 22:33 | RO ---
DATE OF PROCEDURE: 08/06/2017 PREPROCEDURE DIAGNOSIS: Rule out Guillain-[place] POSTPROCEDURE DIAGNOSIS: Rule out Guillain-[place] PROCEDURE: Diagnostic lumbar puncture. SURGEON: Dr. Corrine Hammer IMMIGRATION CASE MANAGER: [place] Nurse Alexia ANESTHESIA: 1 mg of Ativan IV and 4 mg of morphine IV and 1% local lidocaine. ESTIMATED BLOOD LOSS: Minimum. VENTILATION: None. DESCRIPTION OF PROCEDURE: Patient was placed in right lateral decubitus position with knee bent towards the abdomen and chin towards the chest. Patient's back was cleaned with Betadine three times and covered in the usual sterile manner. Landmarks of vertebral process and superior iliac crest was palpated. Superficial lidocaine first subcutaneous then deep was injected between the patient's L4-L5 and subsequently lumbar puncture needle was inserted, checking for fluid return every millimeter. Cerebrospinal fluid (CSF) fluid was obtained, initially pink, then cleared. Needle was withdrawn after CSF was collected. The patient tolerated the procedure without any complication.
--- NOTE | 2017-08-06 22:50 | REPUSA ---
CT of the abdomen and pelvis with and without contrast Clinical statement: Pain. Technique: Multiple axial CT images were obtained from the base of the lungs through the floor of the pelvis utilizing 5 mm axial slices before and after administration of nonionic intravenous contrast. 3D, coronal and sagittal reconstructions were also obtained. Comparison: 05/20/2017. Findings: Chest: The visualized lung bases are clear. Abdomen: The liver, spleen, pancreas, kidneys, gallbladder, and adrenal glands are unremarkable. The low attenuation lesion seen in the liver on the prior study are not well visualized on the current ex am, likely representing ill-defined fatty infiltration. The aorta is within normal limits. There is n o evidence of abdominal lymphadenopathy or ascites. Pelvis: The bowel is unremarkable, with no obstructive or inflammatory changes. The appendix is not w ell visualized. A small amount of fluid is seen in the right lower quadrant. The urinary bladder is w ithin normal limits. The other pelvic structures appear grossly intact. There is no evidence of pelvi c lymphadenopathy. Bones: There are no suspicious osseous abnormalities seen. Impression: 1. No obstructive or inflammatory bowel changes. 2. Small amount of fluid in the right lower quadrant. The appendix is not well visualized. 3. Minimal focal areas of fatty infiltration within the liver, which have decreased in severity since the prior study. 4. No evidence of hydronephrosis or nephrolithiasis.
--- NOTE | 2017-08-06 23:13 | HPE ---
DATE OF ADMISSION: 08/06/2017 PRIMARY CARE PROVIDER: Vaibhav Amaral SODA DIALYZER: Dr. Ruiz CHIEF COMPLAINT: Generalized weakness, lightheadedness, lower extremity weakness. HISTORY OF THE PRESENT ILLNESS: This is a 27-year-old female patient with underlying medical history of bipolar 1, anxiety, chronic constipation, had a colectomy secondary to constipation in March 2017 at [facility], gastroesophageal reflux disease (GERD), irritable bowel syndrome. Patient has chronic abdominal pain since the colectomy surgery, surgical attending, Jose Trevino, and recently being worked up for large liver cyst, thick lesions. Patient presented with 2 weeks of progressively worsening lightheadedness that is intermittent and generalized weakness of lower extremities. The patient also reported 3 weeks ago with URI symptoms that has recovered but for the past 2 days, the patient reported that her weakness has gotten worse and is also involving her upper extremities to such an extent, also reported numbness intermittently of bilateral lower extremities with difficulty ambulating, reported watery diarrhea about eight times since yesterday. At baseline, the patient, after the surgery, has about three bowel movements a day. The patient reported diarrhea is nonbloody, watery. No sick contacts at home. Denies any fevers. Feeling very anxious. Denies overdosing on medication. Takes [id number] probiotics and multivitamin. Denies any chest pain, pressure or discomfort. Reported anxious. Denies suicidality. ALLERGIES: No known drug allergies. PAST MEDICAL HISTORY: Chronic constipation. Recent subtotal colectomy. Bipolar type 1. Anxiety. GERD. Irritable bowel syndrome. PAST SURGICAL HISTORY: Tubal ligation. Colonoscopy. Tonsillectomy. Recent robotic subtotal colectomy. Ureteral stent. FAMILY HISTORY: Father with alcohol abuse. Grandmother with chronic obstructive pulmonary disease (COPD). Depression in father and mother. SOCIAL HISTORY: Quit smoking 5 years ago. Denies drinking alcoholic beverages or illicit drugs. The patient's I-STOP was pulled. [employer] reference number [id number]. I-STOP record was in chart. REVIEW OF SYSTEMS: Reported abdominal pain, headache, generalized weakness, numbness, predominantly lower extremity but now seems to be involving upper extremity as well, diarrhea, history of constipation. All other review of systems are negative. HOME MEDICATIONS: - Klonopin 1 mg by mouth three times a day as needed - multivitamin by mouth daily - oxcarbazepine 1200 mg by mouth nightly - Lyrica 75 mg by mouth twice a day as needed - probiotics one capsule by mouth daily - trazodone 150 mg by mouth nightly PHYSICAL EXAMINATION: VITAL SIGNS: Temperature 98.7, pulse 96, respirations 18, blood pressure 107/58, pulse oximetry 95% on room air. Orthostatic: When patient stands, she has worsening tachycardia. GENERAL: Patient alert and oriented times three, in no acute distress. HEENT: Normocephalic, atraumatic. PULMONARY: Bilaterally clear to auscultation. CARDIAC: Regular rate and rhythm. Normal S1, S2. ABDOMEN: Soft, diffusely tender, hyperactive bowel sounds. No rebound, no guarding, surgical sites minimal. EXTREMITIES: Generalized weakness bilateral lower extremities, about 4/5 bilaterally. Diminished reflex bilateral Achilles and patella. Sensation to pain and light touch intact. EKG: Sinus rhythm 90, no ST segment changes, QTc 395. ASSESSMENT AND PLAN: This is a 27-year-old female patient with underlying medical history of constipation, status post subtotal colectomy March 2017, bipolar disorder, anxiety, gastroesophageal reflux disease, irritable bowel syndrome, admitted with generalized weakness and diarrhea. PROBLEMS: 1. Generalized weakness and bilateral lower extremity weakness and diarrhea. Rule out Guillain-[place]. Lumbar puncture has been done. Will wait for lumbar puncture (LP) results before discussing with neurology. CT scan of the head appreciated. Neurologic checks. Physical therapy. Intravenous (IV) fluids for hydration. Patient orthostatic positive. Followup cerebrospinal fluid (CSF) studies. Followup NIF, forced vital capacity, negative inspiratory flow. Continue pulse oximetry. 2. Diarrhea. Unknown etiology. Followup CT of the abdomen. The patient recently had a subtotal colectomy. Gastrointestinal (GI) panel has been negative. Followup stool studies, thyroid functions. 3. Anxiety. Patient claimed to have episodes of loss of consciousness, but, unfortunately, it happened outside of the hospital setting. CT scan is appreciated. Continue home medication. Urine toxicology has been negative. Frequent neurologic checks. Continue to monitor. 4. Bipolar. Continue home medication. Consider psychiatric followup if the patient's condition does not improve. 5. Orthostasis. Patient with tachycardia upon standing. Intravenous fluids for hydration. Continue to followup orthostatic vital signs. 6. Chronic abdominal pain. Continue pain medication as ordered. As per patient, she has been having abdominal pain since surgery. Will consider pain management consultation if situation worsens. CT of the abdomen has been ordered. 7. Gastroesophageal reflux disease. Continue home medication. 8. Irritable bowel syndrome. Continue to follow. 9. Deep vein thrombosis (DVT) prophylaxis. Heparin subcutaneously. DISPOSITION: Pending further workup.
[2017-08-06 23:33] VITALS: BP 99/57
[2017-08-06] MEDS: NS 1,000 ML IV SCH (23:35)
[2017-08-06] MEDS: HEPARIN SOD (PORCINE) 5000 UNITS/ML VIAL SC SCH (23:38)
[2017-08-06] MEDS: traZODone 50 MG TAB PO SCH (23:38)
[2017-08-06] MEDS: ONDANSETRON 4MG/2ML VIAL (J2405) IV PRN (23:40)
[2017-08-06] MEDS ORDERED: THIAMINE 100 MG TAB PO ONE (23:45)
[2017-08-06] MEDS ORDERED: FOLIC ACID 1 MG TAB PO ONE (23:45)
[2017-08-07] VITALS (13 sets, daily range): BP systolic 82–114; BP diastolic 48–72
[2017-08-07] MEDS: OXcarbazepine 300 MG TAB PO SCH ×2 (00:07→21:38)
[2017-08-07] MEDS: clonazePAM 1 MG TAB PO PRN (00:57)
[2017-08-07] MEDS ORDERED: NS 1,000 ML IV ONE (02:15)
[2017-08-07] MEDS ORDERED: ACETAMINOPHEN 325 MG TAB PO PRN (04:30)
[2017-08-07 04:58] LABS: MEAN CORPUSCULAR HEMOGLOBIN 28.8 pg (27.0-33.0); MEAN CORPUSCULAR HGB CONC 32.4 g/dl (32.0-36.5); RED CELL DISTRIBUTION WIDTH 13.5 % (11.5-14.5); WHITE BLOOD COUNT 2.4 10^3/uL (4.0-10.0)
[2017-08-07 05:19] LABS: ALBUMIN 2.6 GM/DL (3.2-5.2); ALBUMIN/GLOBULIN RATIO 1.13 (1.00-1.93); ALKALINE PHOSPHATASE 41 U/L (45-117); ALT/SGPT 12 U/L (12-78); ANION GAP 3 MEQ/L (8-16); AST/SGOT 6 U/L (15-37); BILIRUBIN,TOTAL 0.3 MG/DL (0.2-1.0); BLOOD UREA NITROGEN 5 MG/DL (7-18); CALCIUM LEVEL 7.4 MG/DL (8.5-10.1); CARBON DIOXIDE LEVEL 25 MEQ/L (21-32); CHLORIDE LEVEL 114 MEQ/L (98-107); CREATININE FOR GFR 0.45 MG/DL (0.55-1.02); GLOMERULAR FILTRATION RATE > 60.0 (>60); GLUCOSE, FASTING 93 MG/DL (70-105); MAGNESIUM LEVEL 1.8 MG/DL (1.8-2.4); POTASSIUM SERUM 4.1 MEQ/L (3.5-5.1); SODIUM LEVEL 142 MEQ/L (136-145); TOTAL PROTEIN 4.9 GM/DL (6.4-8.2)
[2017-08-07] MEDS ORDERED: COSYNTROPIN 0.25 MG/ML VIAL (J0835) IV ONE (06:00)
[2017-08-07] MEDS: HEPARIN SOD (PORCINE) 5000 UNITS/ML VIAL SC SCH ×3 (06:35→21:38)
[2017-08-07] MEDS ORDERED: LORazepam 2 MG/ML VIAL (J2060) IV STA (07:37)
[2017-08-07] MEDS ORDERED: CYANOCOBALAMIN 1,000 MCG/ML VIAL (J3420) SC SCH (09:00)
[2017-08-07 09:06] LABS: CONTROL LINE MONO RF C INT CTR LINE PRESENT
[2017-08-07] MEDS: PIPERACILLIN/TAZOBACTAM SOD 3.375 GM in D5W 50 ML IV SCH ×3 (09:30→21:38)
[2017-08-07] MEDS: LACTOBACILLUS ACIDOPHILUS CAP (BACID) PO SCH ×3 (09:30→21:38)
[2017-08-07] MEDS: MULTIVITAMINS/MINERALS THERAP 1 TAB PO SCH (09:30)
[2017-08-07] MEDS: FOLIC ACID 1 MG TAB PO SCH (09:30)
[2017-08-07] MEDS: THIAMINE 100 MG TAB PO SCH (09:30)
[2017-08-07] MEDS: NS 1,000 ML IV SCH ×4 (09:32→23:33)
[2017-08-07] MEDS: HYDROmorphone HCL 2 MG/ML 1ML VIAL (J1170) IV PRN ×2 (09:44→14:22)
[2017-08-07] MEDS: ONDANSETRON 4MG/2ML VIAL (J2405) IV PRN ×2 (09:49→23:43)
--- NOTE | 2017-08-07 11:12 | REP ---
MR BRAIN WITHOUT CONTRAST: HISTORY: Altered mental status. COMPARISON: CT 08/06/2017. There are no areas of abnormal signal intensity in the brain. There is no intraparenchymal hemorrhage, infarct, mass, or midline shift. The ventricular system is normal in appearance. There is no extracerebral collection. The sinuses are clear. IMPRESSION: There is no intracranial lesion. Signed by Denis Bright MD 08/07/2017 11:35 A
--- NOTE | 2017-08-07 11:18 | REP ---
MR LUMBAR SPINE WITHOUT CONTRAST: HISTORY: Bilateral leg weakness. Decreased signal intensity on T2-weighted images is present in the L5-S1 intervertebral disc. This represents disc degeneration. There is no disc bulge or herniation at the L1-2 through L3-4 levels. The nerves exit the neural foramina without compression. A diffuse disc bulge is present at the L4-5 level. This abuts the thecal sac. The L4 nerves exit the neural foramina without compression. A small right paracentral and intraforaminal disc protrusion is present at the L5-S1 level. This abuts the right S1 nerve. There is no thecal sac compression. The L5 nerves exit the neural foramina without compression. The conus medullaris is normal in appearance terminating at the level of the L1-2 intervertebral disc. Normal signal intensity is present in the lumbar vertebral bodies. IMPRESSION: 1. Diffuse disc bulge at the L4-5 level. This abuts the thecal sac. 2. Small right paracentral and intraforaminal disc protrusion at the L5-S1 level. This abuts the right S1 nerve. Signed by Denis Bright MD 08/07/2017 11:35 A
--- NOTE | 2017-08-07 13:33 | IPN ---
DATE: 08/07/2017 Ms. Little is feeling okay this morning. She has some headache. No visual changes. No runny nose. No sore throat. Tolerating a diet. Temperature is 99.3, pulse 75, respiratory rate 16, blood pressure 107/61, 94% on room air. Intake and output notable for a positive fluid balance of 2000, weight 61.2 kg. She is awake, appropriately interactive, pleasantly conversant. Somewhat anxious. Breathing is symmetrical and rested. Heart is regular rate and rhythm. It is not tachycardic. Abdomen is soft, doughy, nontender. There is no lower extremity edema. White cell count 2.4, hemoglobin 10.2 and platelets of 186, BUN 5, creatinine 0.45, vitamin D level is 29.5, cortisol response is appropriate, cosyntropin. My assessment is as follows: Admitted with generalized weakness and diarrhea, found to be hypotensive this morning. My plan is as follows: 1. Patient has generalized weakness with bilateral lower extremity weakness and diarrhea. Guillain-[place] was ruled out. Lumbar puncture was unremarkable. Patient was orthostatic, is receiving IV fluid. MRI has been negative. She does have evidence of bulging disc in the L-spine. 2. Diarrhea. Chronic. Gastrointestinal (GI) panel negative. 3. Patient has orthostasis, is no longer tachycardic. She is receiving IV fluids. I am giving empiric Zosyn for the possibility of underlying infection. Awaiting cultures. 4. CT abdomen shows fatty infiltrated liver. 5. Patient has irritable bowel syndrome. 6. Patient has appropriate deep vein thrombosis (DVT) prophylaxis. 7. Patient has been discussed at bedside and also by phone with mother after receiving the patient's permission.
[2017-08-07] MEDS: KETOROLAC 30 MG/ML VIAL (J1885) IV PRN ×2 (17:36→17:46)
[2017-08-07] MEDS ORDERED: traZODone 50 MG TAB PO SCH (21:00)
[2017-08-07] MEDS: traZODone 50 MG TAB PO SCH (21:38)
[2017-08-07] MEDS: HYDROmorphone HCL 1 MG/ML SYRINGE (J1170) IV PRN (23:44)
[2017-08-08] MEDS: clonazePAM 1 MG TAB PO PRN (00:41)
[2017-08-08] MEDS: PIPERACILLIN/TAZOBACTAM SOD 3.375 GM in D5W 50 ML IV SCH ×4 (03:02→21:02)
[2017-08-08 04:00] VITALS: BP 97/45
[2017-08-08] MEDS: HEPARIN SOD (PORCINE) 5000 UNITS/ML VIAL SC SCH ×3 (05:23→21:05)
[2017-08-08] MEDS: HYDROmorphone HCL 1 MG/ML SYRINGE (J1170) IV PRN (05:30)
[2017-08-08 06:01] LABS: MEAN CORPUSCULAR HEMOGLOBIN 28.8 pg (27.0-33.0); MEAN CORPUSCULAR HGB CONC 32.7 g/dl (32.0-36.5); MEAN CORPUSCULAR VOLUME 87.8 fl (80.0-96.0); RED CELL DISTRIBUTION WIDTH 13.5 % (11.5-14.5); WHITE BLOOD COUNT 2.7 10^3/uL (4.0-10.0)
[2017-08-08 06:26] LABS: ALBUMIN 2.3 GM/DL (3.2-5.2); ALBUMIN/GLOBULIN RATIO 1.05 (1.00-1.93); ALKALINE PHOSPHATASE 39 U/L (45-117); ALT/SGPT 13 U/L (12-78); ANION GAP 6 MEQ/L (8-16); AST/SGOT 9 U/L (15-37); BILIRUBIN,TOTAL 0.1 MG/DL (0.2-1.0); BLOOD UREA NITROGEN 3 MG/DL (7-18); CALCIUM LEVEL 7.7 MG/DL (8.5-10.1); CARBON DIOXIDE LEVEL 24 MEQ/L (21-32); CHLORIDE LEVEL 113 MEQ/L (98-107); CREATININE FOR GFR 0.52 MG/DL (0.55-1.02); GLOMERULAR FILTRATION RATE > 60.0 (>60); GLUCOSE, FASTING 90 MG/DL (70-105); MAGNESIUM LEVEL 1.9 MG/DL (1.8-2.4); POTASSIUM SERUM 3.4 MEQ/L (3.5-5.1); SODIUM LEVEL 143 MEQ/L (136-145); TOTAL PROTEIN 4.5 GM/DL (6.4-8.2)
[2017-08-08 08:00] VITALS: BP_SYST 103; BP_SYST 108; BP_SYST 110; BP_DIAS 55; BP_DIAS 59; BP_DIAS 60
[2017-08-08] MEDS ORDERED: SLF 3 ML SYR IV PRN (08:30)
[2017-08-08] MEDS: LACTOBACILLUS ACIDOPHILUS CAP (BACID) PO SCH ×3 (08:36→21:03)
[2017-08-08] MEDS: MULTIVITAMINS/MINERALS THERAP 1 TAB PO SCH (08:36)
[2017-08-08] MEDS: FOLIC ACID 1 MG TAB PO SCH (08:36)
[2017-08-08] MEDS: THIAMINE 100 MG TAB PO SCH (08:37)
--- NOTE | 2017-08-08 08:50 | REP ---
MRI CERVICAL SPINE WITHOUT CONTRAST: HISTORY: Leg weakness. There is no disc bulge or herniation. The spinal canal and the neural foramina are patent. The spinal cord is normal in signal intensity. Normal signal intensity is present in the cervical vertebral bodies. IMPRESSION: There is no disc bulge or herniation. Signed by Denis Bright MD 08/08/2017 08:51 A
--- NOTE | 2017-08-08 08:52 | REP ---
MRI THORACIC SPINE WITHOUT CONTRAST: HISTORY: Leg weakness. There is no disc bulge or herniation. The spinal canal and the neural foramina are patent. The spinal cord is normal in signal intensity. Increased signal intensity on T2-weighted images is present in the inferior end plate of the T7 vertebral body. This represents degenerative change. Normal signal intensity is present in the remaining thoracic vertebral bodies. IMPRESSION: There is no disc bulge or herniation. Signed by Denis Bright MD 08/08/2017 09:17 A
[2017-08-08] MEDS: PERCOCET 5MG/325MG TAB PO PRN ×3 (09:57→21:08)
[2017-08-08 12:00] VITALS: BP 101/51
[2017-08-08] MEDS: SLF 3 ML SYR IV SCH ×2 (14:46→21:06)
--- NOTE | 2017-08-08 15:16 | IPN ---
DATE: 08/08/2017 Ms Little was complaining of generalized discomfort, generalized weakness, malaise. No chest pain. Toradol is not affective for pain control. She is tolerating a diet. Temperature 98.9, pulse 65, respiratory rate 18, blood pressure 101/51, 98% in room air. Input and output notable for positive fluid balance of 1500. Awake appropriately interactive, pleasantly conversant, somewhat anxious, occasionally tearful. Mucous membranes moist. Neck supple. Breathing is symmetrical. I/E ratio is 1:3. Heart is in a regular rate and rhythm. Abdomen soft, doughy nontender. White cell count 2.2.7, hemoglobin 9.2, platelets 147, BUN 33, creatinine 0.5, potassium 3.4, MRI of her C-spine is unremarkable. MRI of T-spine is unremarkable. ASSESSMENT: This is a 27-year-old who presented with generalized weakness and hypotension. PLAN 1. Generalized weakness: She has had significant neurological workup. She has been seen by Dr. Pereira. He and I have discussed this case. She is not orthostatic. She is having generalized pain and is using a good deal of Dilaudid. I believe this has been discontinued. She has been started on empiric Zosyn for the possibility of underlying infection which appears highly unlikely. Will wait for cultures to be negative and then discontinue antibiotics. 2. CT abdomen shows a fatty infiltrative liver. She apparently has been followed by [facility] in [place]. I would recommend further outpatient followup as clinically warranted. 3. The patient has irritable bowel syndrome. 4. The patient has appropriate deep venous thrombosis prophylaxis. 5. The patient should continue with physical therapy. I have encouraged her to be out of bed. Will be looking for discharge in the next day or two. 6. The patient has minimally decreased B12, but given the presentation with generalized weakness B12 therapy is warranted and was given yesterday.
[2017-08-08 16:00] VITALS: BP 100/60
[2017-08-08 20:00] VITALS: BP 125/73
[2017-08-08] MEDS: traZODone 50 MG TAB PO SCH (21:04)
[2017-08-08] MEDS: OXcarbazepine 300 MG TAB PO SCH (21:05)
[2017-08-09] VITALS: BP_SYST 101; BP_SYST 103; BP_SYST 104; BP_DIAS 60; BP_DIAS 68; BP_DIAS 77
[2017-08-09] MEDS: PIPERACILLIN/TAZOBACTAM SOD 3.375 GM in D5W 50 ML IV SCH ×2 (02:58→09:48)
[2017-08-09] MEDS: PERCOCET 5MG/325MG TAB PO PRN ×4 (03:24→22:16)
[2017-08-09 04:00] VITALS: BP 109/62
[2017-08-09 06:04] LABS: MEAN CORPUSCULAR HEMOGLOBIN 28.5 pg (27.0-33.0); MEAN CORPUSCULAR HGB CONC 32.6 g/dl (32.0-36.5); MEAN CORPUSCULAR VOLUME 87.3 fl (80.0-96.0); RED CELL DISTRIBUTION WIDTH 13.4 % (11.5-14.5); WHITE BLOOD COUNT 2.8 10^3/uL (4.0-10.0)
[2017-08-09] MEDS: SLF 3 ML SYR IV SCH ×3 (06:13→22:11)
[2017-08-09] MEDS: HEPARIN SOD (PORCINE) 5000 UNITS/ML VIAL SC SCH ×3 (06:14→22:10)
[2017-08-09 06:20] LABS: ALBUMIN 2.4 GM/DL (3.2-5.2); ALBUMIN/GLOBULIN RATIO 0.96 (1.00-1.93); ALKALINE PHOSPHATASE 39 U/L (45-117); ALT/SGPT 46 U/L (12-78); ANION GAP 5 MEQ/L (8-16); AST/SGOT 39 U/L (15-37); BILIRUBIN,TOTAL 0.2 MG/DL (0.2-1.0); BLOOD UREA NITROGEN 4 MG/DL (7-18); CALCIUM LEVEL 7.6 MG/DL (8.5-10.1); CARBON DIOXIDE LEVEL 28 MEQ/L (21-32); CHLORIDE LEVEL 110 MEQ/L (98-107); CREATININE FOR GFR 0.54 MG/DL (0.55-1.02); GLOMERULAR FILTRATION RATE > 60.0 (>60); GLUCOSE, FASTING 85 MG/DL (70-105); MAGNESIUM LEVEL 1.5 MG/DL (1.8-2.4); POTASSIUM SERUM 3.5 MEQ/L (3.5-5.1); SODIUM LEVEL 143 MEQ/L (136-145); TOTAL PROTEIN 4.9 GM/DL (6.4-8.2)
[2017-08-09 08:00] VITALS: BP 111/64
[2017-08-09] MEDS: LACTOBACILLUS ACIDOPHILUS CAP (BACID) PO SCH ×3 (08:03→22:10)
[2017-08-09] MEDS: MAG SULF 1GM/100ML (MAG RUN) 1 GM in APPROPRIATE DILUENT 1 EA IV SCH ×2 (08:03→09:49)
[2017-08-09] MEDS: THIAMINE 100 MG TAB PO SCH (08:04)
[2017-08-09] MEDS: MULTIVITAMINS/MINERALS THERAP 1 TAB PO SCH (08:04)
[2017-08-09] MEDS: FOLIC ACID 1 MG TAB PO SCH (08:04)
[2017-08-09 12:00] VITALS: BP 105/63
--- NOTE | 2017-08-09 14:06 | IPN ---
DATE: 08/09/2017 Ms Little is feeling weak and tired today. Family notes that she has been quite somnolent with the use of Percocet and yesterday it was discussed that perhaps I should pull back on the opiates for pain control, which was confirmed again today by her father in her presence. No chest pain. No shortness of breath. Feels tired. Is worried about going home, but is open to the idea. Temperature 99, pulse 66, respiratory rate 18, blood pressure 111/64, 95% on room air. Input and output notable for positive fluid balance of 390. Two bowel movements. Awake, appropriately interactive, pleasantly conversant, flattened affect. Following commands. Is somewhat short with her father. Mucous membranes moist. Neck supple. Breathing is symmetrical. I:E ratio is 1:3. Heart is in a regular rate and rhythm. Abdomen soft, doughy nontender. Extremities: She is moving all four extremities symmetrically. White cell count 2.8, hemoglobin 9.4, platelets 164, BUN 4, creatinine 0.5. ASSESSMENT: This is a 27-year-old who presented with generalized weakness and hypotension. PLAN 1. Generalized weakness. She has had a neurological workup with MRI, lumbar puncture and neurology consultation. At this point, her weakness is likely further compounded by the use of Percocet, which I have discontinued. I have encouraged the patient to be out of bed and moving around. 2. CT abdomen shows a fatty infiltrative liver. She has been followed by truck driver teamster in [place]. Recommend further outpatient followup as already scheduled. 3. The patient has irritable bowel syndrome. 4. The patient has appropriate deep venous thrombosis prophylaxis. 5. The patient is encouraged to be out of bed. We will hopefully be able to discharge her tomorrow. 6. The patient has minimally decreased B12. We will continue with B12 supplementation. 7. Psychiatric. The patient has a history of bipolar disorder. Follows at [facility] ([facility]). After further consultation with neurology and with family, the patient is amenable to seeing a psychiatrist in the hospital. I have consulted business process consultant psychiatrist today.
[2017-08-09 15:05] VITALS: BP 111/73
[2017-08-09] MEDS: CYANOCOBALAMIN 500 MCG TAB PO SCH (16:12)
[2017-08-09] MEDS: ONDANSETRON 4MG/2ML VIAL (J2405) IV PRN ×2 (16:14→22:16)
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
[2017-08-09 22:00] VITALS: BP 106/63
[2017-08-09] MEDS: traZODone 50 MG TAB PO SCH (22:09)
[2017-08-09] MEDS: OXcarbazepine 300 MG TAB PO SCH (22:10)
[2017-08-10 00:07] LABS: Lyme Disease IgG/IgM Antibodie <0.91 ISR (0.00-0.90); Lyme Disease IgM Ab Quantitati <0.80 index (0.00-0.79)
[2017-08-10 06:00] VITALS: BP 103/55
[2017-08-10] MEDS: HEPARIN SOD (PORCINE) 5000 UNITS/ML VIAL SC SCH ×3 (06:03→22:08)
[2017-08-10] MEDS: ONDANSETRON 4MG/2ML VIAL (J2405) IV PRN ×2 (06:04→20:51)
[2017-08-10] MEDS: PERCOCET 5MG/325MG TAB PO PRN ×2 (06:05→13:56)
[2017-08-10] MEDS: SLF 3 ML SYR IV SCH ×3 (06:07→22:08)
[2017-08-10 06:11] LABS: MEAN CORPUSCULAR HEMOGLOBIN 28.4 pg (27.0-33.0); MEAN CORPUSCULAR VOLUME 86.2 fl (80.0-96.0); RED CELL DISTRIBUTION WIDTH 13.4 % (11.5-14.5); WHITE BLOOD COUNT 3.1 10^3/uL (4.0-10.0)
[2017-08-10 06:41] LABS: ALBUMIN 2.4 GM/DL (3.2-5.2); ALKALINE PHOSPHATASE 46 U/L (45-117); ALT/SGPT 42 U/L (12-78); ANION GAP 5 MEQ/L (8-16); AST/SGOT 21 U/L (15-37); BILIRUBIN,TOTAL 0.1 MG/DL (0.2-1.0); BLOOD UREA NITROGEN 3 MG/DL (7-18); CALCIUM LEVEL 8.2 MG/DL (8.5-10.1); CARBON DIOXIDE LEVEL 29 MEQ/L (21-32); CHLORIDE LEVEL 109 MEQ/L (98-107); CREATININE FOR GFR 0.51 MG/DL (0.55-1.02); GLOMERULAR FILTRATION RATE > 60.0 (>60); GLUCOSE, FASTING 84 MG/DL (70-105); MAGNESIUM LEVEL 1.8 MG/DL (1.8-2.4); POTASSIUM SERUM 3.4 MEQ/L (3.5-5.1); SODIUM LEVEL 143 MEQ/L (136-145); TOTAL PROTEIN 4.8 GM/DL (6.4-8.2)
[2017-08-10 08:06] LABS: CHLORIDE FECAL 69 mmol/L (.); OSMOLARITY STOOL 308 mOsmol/kg (Not Estab.); POTASSIUM FECAL 12 mmol/L (.); SODIUM FECAL 87 mmol/L (.)
[2017-08-10] MEDS: MULTIVITAMINS/MINERALS THERAP 1 TAB PO SCH (09:33)
[2017-08-10] MEDS: FOLIC ACID 1 MG TAB PO SCH (09:33)
[2017-08-10] MEDS: THIAMINE 100 MG TAB PO SCH (09:33)
[2017-08-10] MEDS: LACTOBACILLUS ACIDOPHILUS CAP (BACID) PO SCH ×3 (09:33→20:45)
[2017-08-10] MEDS: CYANOCOBALAMIN 500 MCG TAB PO SCH (09:33)
[2017-08-10] MEDS: PREGABALIN 75 MG CAP(LYRICA) PO PRN (09:43)
[2017-08-10] MEDS: KETOROLAC 30 MG/ML VIAL (J1885) IV PRN (11:23)
[2017-08-10 14:00] VITALS: BP 112/64
[2017-08-10] MEDS ORDERED: NORCO, ANEXSIA 5/325MG TABLET (HYDROcodone/ACETAMINOPHEN) PO PRN (14:15)
[2017-08-10] MEDS ORDERED: POTASSIUM CHLORIDE 10 MEQ SR TABLET PO ONE (17:00)
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
[2017-08-10] MEDS: CYANOCOBALAMIN 1,000 MCG/ML VIAL (J3420) IM SCH (18:46)
[2017-08-10] MEDS: OXcarbazepine 300 MG TAB PO SCH (20:44)
[2017-08-10] MEDS: traZODone 50 MG TAB PO SCH (20:45)
[2017-08-10 22:00] VITALS: BP 102/55
--- NOTE | 2017-08-10 22:52 | CR ---
DATE OF CONSULTATION: 08/08/2017 REASON FOR CONSULTATION: Lower extremity weakness. The patient is a 27-year-old female with past medical history significant for bipolar type 1, anxiety, chronic constipation status post colectomy in the summer of 2016, presenting with a chief complaint of having symptoms of diarrhea for several days, feeling unwell, generally weak, feeling weaker in the legs, initially complaining of paresthesias and weakness in an ascending pattern. The patient was initially assessed in the emergency department by Dr. Hammer. A spinal tap was benign. An MRI of the lumbosacral spine revealed some spondylosis with bulging disc without any clear evidence of weakness of the lower extremities. The patient did have an MRI of the brain, which was negative for any stroke. The patient worked with physical therapy, and physical therapy commented that the patient's symptoms are not consistent with her complaints. PHYSICAL EXAMINATION: The patient had inconsistent demonstration of weakness. Upon my evaluation, the patient has normal 5/5 strength involving the lower extremities. There is clearly no clear neurological cause for her weakness. She does have a slightly low-normal level of B12, which can be supplemented with B12 at 1000 mcg daily. The patient has normal reflexes and does not have evidence to support Guillain-Newton syndrome. The patient due to stating having symptoms of clumsiness in her gait and weakness in her legs was recommended to obtain an MRI of the cervical and thoracic spine. These were ordered and completed and found to be within normal limits. PAST MEDICAL HISTORY: 1. Chronic constipation. 2 Recent subtotal colectomy. 3. Bipolar, type 1. 4. Anxiety. 5. Gastroesophageal reflux disease. 6. Irritable bowel syndrome. PAST SURGICAL HISTORY: 1. Tubal ligation. 2. Colonoscopy. 3. Tonsillectomy. 4. Recent robotic-assisted total colectomy. 5. Ureteral stent. FAMILY HISTORY: Father with alcohol abuse. SOCIAL HISTORY: The patient quit tobacco 5 years ago. Denies recreational drug use or alcohol use. REVIEW OF SYSTEMS: A 14-point review of systems obtained and is negative except as per history of present illness (HPI). HOME MEDICATIONS: - Klonopin 1 mg by mouth three times a day - multivitamin by mouth daily - oxcarbazepine 1200 mg at bedtime - Lyrica 75 mg by mouth by mouth twice a day - probiotic by mouth daily - trazodone 160 mg by mouth at bedtime The patient clarified that she was not on Lyrica prior to developing chronic constipation. Lyrica can cause gastroparesis; however, the patient states that this was recently started. PHYSICAL EXAMINATION: Blood pressure is 99/59, pulse rate is 95, respiratory rate is 18, temperature is 99.3 degrees Fahrenheit, oxygenation 94% on room air. The patient is awake, alert, oriented to person, place, and time. Speech, language, comprehension and repetition are intact. Pupils are 3 mm, round, reactive to light. Extraocular movements are intact in all directions. Sensation in V1, V2, V3 is intact to light touch. No facial asymmetry to activation. Palate elevates symmetrically. Tongue is midline. No weakness of sternocleidomastoids bilaterally. Normal bulk and tone of the upper and lower extremities. The patient demonstrates 5/5 strength in bilateral deltoids, biceps, triceps, hand senior publications specialist, iliopsoas, quadriceps, anterior tibialis. The patient demonstrates initial give-away weakness, although when encouraged to demonstrate full strength, she can do so. The patient was able to rise out of her bed without any assistance or help. The patient demonstrates a functional gait, taking tiny steps 1 inch at a time, walking sideways; however, when encouraged to walk normally she again tries to walk walking straight forward, again just with small steps. The patient describes discomfort and pain, nonspecifically in her legs and joints. Sensory appears to be intact to light touch, vibration in all four extremities. Romberg testing is negative. The patient is able to ambulate with her eyes closed as well. ASSESSMENT: 1. Subjective weakness of the lower extremities. 2. Low-normal B12 level. 3. Functional gait. Possible conversion disorder versus psychogenic in nature. 4. Cervical spine, thoracic spine ordered, completed, and does not show any evidence of myelopathy. Recommend physical therapy for the patient. Management of her medical condition as per primary team. Consider psychiatric evaluation for functional gait if the patient's symptoms do not improve. CHELSIE
[2017-08-11] MEDS: HEPARIN SOD (PORCINE) 5000 UNITS/ML VIAL SC SCH ×3 (05:06→22:14)
[2017-08-11] MEDS: SLF 3 ML SYR IV SCH ×3 (05:25→20:46)
[2017-08-11] MEDS: ONDANSETRON 4MG/2ML VIAL (J2405) IV PRN ×2 (05:43→19:29)
[2017-08-11] MEDS: PREGABALIN 75 MG CAP(LYRICA) PO PRN ×2 (05:43→13:44)
[2017-08-11 06:00] VITALS: BP 130/83
[2017-08-11 06:45] LABS: MEAN CORPUSCULAR HEMOGLOBIN 28.6 pg (27.0-33.0); MEAN CORPUSCULAR HGB CONC 33.5 g/dl (32.0-36.5); MEAN CORPUSCULAR VOLUME 85.2 fl (80.0-96.0); RED CELL DISTRIBUTION WIDTH 13.3 % (11.5-14.5); WHITE BLOOD COUNT 3.7 10^3/uL (4.0-10.0)
[2017-08-11 07:04] LABS: ALBUMIN 2.6 GM/DL (3.2-5.2); ALBUMIN/GLOBULIN RATIO 1.04 (1.00-1.93); ALKALINE PHOSPHATASE 50 U/L (45-117); ALT/SGPT 38 U/L (12-78); ANION GAP 7 MEQ/L (8-16); AST/SGOT 14 U/L (15-37); BILIRUBIN,TOTAL 0.2 MG/DL (0.2-1.0); BLOOD UREA NITROGEN 6 MG/DL (7-18); CALCIUM LEVEL 7.7 MG/DL (8.5-10.1); CARBON DIOXIDE LEVEL 27 MEQ/L (21-32); CHLORIDE LEVEL 106 MEQ/L (98-107); CREATININE FOR GFR 0.57 MG/DL (0.55-1.02); GLOMERULAR FILTRATION RATE > 60.0 (>60); GLUCOSE, FASTING 82 MG/DL (70-105); MAGNESIUM LEVEL 1.9 MG/DL (1.8-2.4); POTASSIUM SERUM 3.9 MEQ/L (3.5-5.1); SODIUM LEVEL 140 MEQ/L (136-145); TOTAL PROTEIN 5.1 GM/DL (6.4-8.2)
[2017-08-11] MEDS: CYANOCOBALAMIN 500 MCG TAB PO SCH (10:11)
[2017-08-11] MEDS: LACTOBACILLUS ACIDOPHILUS CAP (BACID) PO SCH ×3 (10:11→20:44)
[2017-08-11] MEDS: FOLIC ACID 1 MG TAB PO SCH (10:11)
[2017-08-11] MEDS: CYANOCOBALAMIN 1,000 MCG/ML VIAL (J3420) IM SCH (10:11)
[2017-08-11] MEDS: MULTIVITAMINS/MINERALS THERAP 1 TAB PO SCH (10:11)
[2017-08-11] MEDS: THIAMINE 100 MG TAB PO SCH (10:11)
[2017-08-11] MEDS: NORCO, ANEXSIA 5/325MG TABLET (HYDROcodone/ACETAMINOPHEN) PO PRN ×2 (10:12→19:29)
[2017-08-11 14:00] VITALS: BP 110/65
--- NOTE | 2017-08-11 14:03 | IPN ---
DATE: 08/11/2017 Ms. Little is complaining of more numbness in her feet and legs today. No chest pain. No shortness of breath. She had some difficulty with physical therapy yesterday. She has been tolerating diet. Apparently had a good number of pills in her purse that the staff was concerned that she was taking. She did relinquish some of those pills to the nursing staff and they were sent to the pharmacy. It appears as though she has retained some [place] in her purse, according to her father. She currently denies this, although we are not granted access to her purse, which is in bed with her. Temperature is 98.3, pulse 65, respiratory rate 18, blood pressure 130/83, 98% on room air. Positive fluid balance of 280. No bowel movements. Is awake, appropriately interactive. Tearful at times. Does not appear overtly depressed. Mucous membranes moist. Neck supple. Breathing is symmetrical. I-to-E ratio is 1:3. No wheezes, rales, or rhonchi. Heart is in a regular rate and rhythm, is not tachycardic. Abdomen is soft, doughy, nontender to deep palpation. Active bowel sounds. She responds to pin prick in bilateral feet. White cell count is 3.7, hemoglobin 10.4, platelets of 193, BUN 6, creatinine 0.57. RONNY is pending. My assessment is as follows: This is a 27-year-old who presented with generalized weakness and hypotension. My plan is as follows: 1. Patient has variable weakness without consistent physical findings. I have asked Dr. Pereira to return to evaluate the patient. I do not believe there is any going issues. CSF has been negative. Imaging of brain, C-spine, T-spine, L-spine have been negative. Blood workup has been negative. It looks as though she has been exposed to mono in the past. RONNY is pending. Syphilis is pending. I believe those will be negative as well. 2. Patient has a history of CT of the abdomen, which shows a fatty infiltrated liver. She is being followed by hepatology in [place], and is planned for followup there in August. 3. Patient has irritable bowel. 4. Patient had minimally decreased B12 during her stay and has been given IM. She will get by mouth at the time of discharge. 5. Patient has repleted hypokalemia. 6. Patient may be taking prescription medications from her purse which complicates her clinical course. It also seems as though she has a complicated social situation at home. The patient has complained that I did discuss this case with her mother, which she new about as she was in the room while we were discussing the case on the phone. Plan no further discussions with the family unless the family is in the room with her.
[2017-08-11] MEDS: OXcarbazepine 300 MG TAB PO SCH (20:43)
[2017-08-11] MEDS: traZODone 50 MG TAB PO SCH (20:44)
[2017-08-11 22:00] VITALS: BP 112/63
[2017-08-12] MEDS: HEPARIN SOD (PORCINE) 5000 UNITS/ML VIAL SC SCH ×3 (05:29→21:33)
[2017-08-12] MEDS: SLF 3 ML SYR IV SCH ×3 (05:29→21:34)
[2017-08-12] MEDS: PREGABALIN 75 MG CAP(LYRICA) PO PRN ×2 (05:36→20:10)
[2017-08-12 05:39] LABS: MEAN CORPUSCULAR HEMOGLOBIN 28.4 pg (27.0-33.0); MEAN CORPUSCULAR HGB CONC 33.2 g/dl (32.0-36.5); MEAN CORPUSCULAR VOLUME 85.4 fl (80.0-96.0); RED CELL DISTRIBUTION WIDTH 13.4 % (11.5-14.5); WHITE BLOOD COUNT 3.6 10^3/uL (4.0-10.0)
[2017-08-12 05:59] LABS: ALBUMIN 2.8 GM/DL (3.2-5.2); ALKALINE PHOSPHATASE 54 U/L (45-117); ALT/SGPT 36 U/L (12-78); ANION GAP 3 MEQ/L (8-16); AST/SGOT 18 U/L (15-37); BILIRUBIN,TOTAL 0.1 MG/DL (0.2-1.0); BLOOD UREA NITROGEN 11 MG/DL (7-18); CALCIUM LEVEL 8.4 MG/DL (8.5-10.1); CARBON DIOXIDE LEVEL 31 MEQ/L (21-32); CHLORIDE LEVEL 105 MEQ/L (98-107); CREATININE FOR GFR 0.54 MG/DL (0.55-1.02); GLOMERULAR FILTRATION RATE > 60.0 (>60); GLUCOSE, FASTING 97 MG/DL (70-105); MAGNESIUM LEVEL 1.9 MG/DL (1.8-2.4); SODIUM LEVEL 139 MEQ/L (136-145); TOTAL PROTEIN 5.6 GM/DL (6.4-8.2)
[2017-08-12 06:47] VITALS: BP 100/55
[2017-08-12] MEDS: LACTOBACILLUS ACIDOPHILUS CAP (BACID) PO SCH ×3 (09:43→21:33)
[2017-08-12] MEDS: CYANOCOBALAMIN 500 MCG TAB PO SCH (09:44)
[2017-08-12] MEDS: MULTIVITAMINS/MINERALS THERAP 1 TAB PO SCH (09:44)
[2017-08-12] MEDS: FOLIC ACID 1 MG TAB PO SCH (09:44)
[2017-08-12] MEDS: THIAMINE 100 MG TAB PO SCH (09:44)
[2017-08-12] MEDS: KETOROLAC 30 MG/ML VIAL (J1885) IV PRN (09:45)
[2017-08-12] MEDS: CYANOCOBALAMIN 1,000 MCG/ML VIAL (J3420) IM SCH (09:45)
[2017-08-12] MEDS ORDERED: SUMAtriptan SUCCINATE 6 MG/0.5 ML VIAL SC ONE (12:00)
[2017-08-12 14:00] VITALS: BP 124/76
[2017-08-12] MEDS: NORCO, ANEXSIA 5/325MG TABLET (HYDROcodone/ACETAMINOPHEN) PO PRN ×2 (14:53→20:10)
--- NOTE | 2017-08-12 15:38 | IPN ---
DATE: 08/12/2017 Ms. Little is complaining of headache today. She is complaining of bilateral frontal headache, light sensitivity, not complaining of lower extremity numbness or weakness. Yesterday she was up and doing laps in the hallway. Today she worked with physical therapy and did 12 to 13 stairs. There is a physical therapy note in the electronic chart. On physical exam temperature is 98.2, pulse 62, respiratory rate 16, blood pressure 100/55, 95% on room air. Intake and output (I and Os) notable for a positive fluid balance of 920. No bowel movements yesterday. Body mass index is 26.1. She is awake, appropriately interactive. Somewhat flattened affect. Mucous membranes moist. Neck is supple. She appears to be sensitive to light. Sinuses are nontender. Breathing is symmetrical. Inspiratory to expiratory (I-to-E) is 1 to 3. Heart is distant sounding, normal S1, S2. Abdomen is soft, doughy and nontender. Strength his symmetrical in the upper and lower extremities as tested. White cell count 3.6, hemoglobin 10.7, platelets 194, BUN 11, creatinine 0.5. RPR was negative. RONNY is pending. ASSESSMENT: This is a 27-year-old who presented with generalized weakness and hypotension. PLAN: 1. The patient has had variable weakness with inconsistent physical findings during her stay. Dr. Pereira has evaluated the patient twice. Physical therapy notes are quite revealing in this regard as well. She has had MRI of her brain, cervical spine, thoracic spine, lumbar spine. She has had a lumbar puncture, extensive and wide ranging blood workup, RONNY is still pending. The possibility of fictitious disorder or conversion disorder is considered. She has been seen by Dr. Tian. At this point I am concerned that she has not been able to consistently demonstrate safety with physical therapy. The patient today seems more motivated to leave the hospital, although I am concerned that she will not be able to maintain herself at home. 2. The patient has self-reported hepatic cyst. She had been followed by GI in [place]. Plan is to followup in August. CT of the abdomen did not show anything significant apart from fatty liver, but would followup with GI in [place] after discharge. 3. The patient has irritable bowel. 4. The patient has minimally decreased B12 during her stay. She has been given some intramuscular (IM) B12 and that has been switched to oral today. 5. The patient has had hypokalemia during her stay. 6. There is also some concern that the patient may have been taking prescription medicine from her purse without letting the nursing staff know.
[2017-08-12] MEDS ORDERED: LORazepam 2 MG/ML VIAL (J2060) IV PRN (16:00)
[2017-08-12] MEDS ORDERED: MORPHINE 2 MG/ML 1ML SYRINGE IV ONE (17:15)
[2017-08-12] MEDS: clonazePAM 1 MG TAB PO PRN (18:52)
--- NOTE | 2017-08-12 20:16 | IPNPDOC ---
Text Note Date of Service The patient was seen on 08/12/17. NOTE Resident and evening attending were contacted by nursing staff that patient has increased withdraw symptoms and anxiety, therefore Ativan was increased from 1mg IV q12 Hr to 1mg IV q8 Hr. Patient has been discussed with Dr. Hammer. KAI ATTESTATION My preceptor for this patient encounter was physically present in the building during the encounter and was fully available. As needed, all aspects of the patient interview, examination, medical decision making process, and medical care plan development were reviewed and approved by the preceptor. Preceptor is aware and concurs with the plan as stated in the body of this note and will attest to such by his/her cosignature. VS,Dillonbone, I+O VS, Fishbone, I+O Laboratory Tests 08/12/17 05:17 Red Blood Count 3.77 L, Mean Corpuscular Volume 85.4, Mean Corpuscular Hemoglobin 28.4, Mean Corpuscular Hemoglobin Concent 33.2, Red Cell Distribution Width 13.4, Calcium Level 8.4 L, Aspartate Amino Transf (AST/SGOT) 18, Alanine Aminotransferase (ALT/SGPT) 36, Alkaline Phosphatase 54, Total Bilirubin 0.1 L, Total Protein 5.6 L, Albumin 2.8 L Vital Signs Date Time Temp Pulse Resp B/P (MAP) Pulse Ox O2 Delivery O2 Flow Rate FiO2 08/12/17 20:10 18 08/12/17 15:23 Room Air 08/12/17 14:00 99.0 65 124/76 (92) 95 I&O- Last 24 Hours up to 6 AM 08/13/17 06:00 Intake Total 120 ml Balance 120 ml TAYO COLES DO Aug 12, 2017 20:16
[2017-08-12] MEDS: traZODone 50 MG TAB PO SCH (21:33)
[2017-08-12] MEDS: OXcarbazepine 300 MG TAB PO SCH (21:33)
[2017-08-12] MEDS: LORazepam 2 MG/ML VIAL (J2060) IV PRN (21:59)
[2017-08-12 22:00] VITALS: BP 102/63
[2017-08-13 06:00] VITALS: BP 98/51
[2017-08-13] MEDS: SLF 3 ML SYR IV SCH ×3 (06:34→22:09)
[2017-08-13] MEDS: HEPARIN SOD (PORCINE) 5000 UNITS/ML VIAL SC SCH ×3 (06:34→22:09)
[2017-08-13 06:44] LABS: MEAN CORPUSCULAR HEMOGLOBIN 28.3 pg (27.0-33.0); MEAN CORPUSCULAR HGB CONC 33.1 g/dl (32.0-36.5); MEAN CORPUSCULAR VOLUME 85.4 fl (80.0-96.0); RED CELL DISTRIBUTION WIDTH 13.3 % (11.5-14.5); WHITE BLOOD COUNT 3.2 10^3/uL (4.0-10.0)
[2017-08-13 07:05] LABS: ALBUMIN 2.8 GM/DL (3.2-5.2); ALBUMIN/GLOBULIN RATIO 1.04 (1.00-1.93); ALKALINE PHOSPHATASE 54 U/L (45-117); ALT/SGPT 36 U/L (12-78); ANION GAP 4 MEQ/L (8-16); AST/SGOT 24 U/L (15-37); BILIRUBIN,TOTAL 0.2 MG/DL (0.2-1.0); BLOOD UREA NITROGEN 11 MG/DL (7-18); CALCIUM LEVEL 8.3 MG/DL (8.5-10.1); CARBON DIOXIDE LEVEL 29 MEQ/L (21-32); CHLORIDE LEVEL 105 MEQ/L (98-107); CREATININE FOR GFR 0.51 MG/DL (0.55-1.02); GLOMERULAR FILTRATION RATE > 60.0 (>60); GLUCOSE, FASTING 95 MG/DL (70-105); SODIUM LEVEL 138 MEQ/L (136-145); TOTAL PROTEIN 5.5 GM/DL (6.4-8.2)
[2017-08-13 07:51] VITALS: BP 104/63
[2017-08-13] MEDS: CYANOCOBALAMIN 500 MCG TAB PO SCH (08:13)
[2017-08-13] MEDS: THIAMINE 100 MG TAB PO SCH (08:13)
[2017-08-13] MEDS: LACTOBACILLUS ACIDOPHILUS CAP (BACID) PO SCH ×3 (08:13→22:09)
[2017-08-13] MEDS: MULTIVITAMINS/MINERALS THERAP 1 TAB PO SCH (08:13)
[2017-08-13] MEDS: LORazepam 2 MG/ML VIAL (J2060) IV PRN ×2 (08:13→16:40)
[2017-08-13] MEDS: ONDANSETRON 4MG/2ML VIAL (J2405) IV PRN (08:13)
[2017-08-13] MEDS: FOLIC ACID 1 MG TAB PO SCH (08:13)
[2017-08-13] MEDS: PREGABALIN 75 MG CAP(LYRICA) PO PRN (10:37)
[2017-08-13 11:00] VITALS: BP 123/74
[2017-08-13] MEDS: clonazePAM 1 MG TAB PO PRN ×2 (11:45→22:09)
[2017-08-13] MEDS ORDERED: LORazepam 2 MG/ML VIAL (J2060) IV ONE (13:15)
[2017-08-13 14:22] VITALS: BP 105/57
--- NOTE | 2017-08-13 18:50 | IPNPDOC ---
Subjective Date Seen The patient was seen on 08/13/17. Subjective Chief Complaint/HPI The patient is a 27-year-old female admitted with a reason for visit of Diarrhea ; Generalized Weakness. Events since last encounter Patient is feeling distraught today. Has a lot going on at home. Boyfriend is threatening to kick him out of his house. Had a headache yesterday and reports having these headaches for the past couple months. States that morphine helped lower pain for a few hours. Imitrex did not help. Is anxious about going home and would like to know what's going on. General: Denies: Chills Constitutional: Denies: Fever ENT: Denies: Head Aches, Ear Pain Skin: Denies: Lesions Pulmonary: Denies: Dyspnea, Cough Cardiovascular: Denies: Chest Pain Objective Physical Examination General Exam: Positive: Alert, Cooperative, No Acute Distress ENT Exam: Positive: Atraumatic Neck Exam: Positive: Supple Chest Exam: Positive: Clear to auscultation Heart Exam: Positive: Rate Normal, Negative: Normal S1, Normal S2 Abdomen Exam: Positive: Normal bowel sounds Psych Exam: Positive: Memory Intact Assessment /Plan Assessment 1. Possible conversion disorder Psychiatry has signed off on patient. Will possibly talk to patient. Plan was to have a meeting to discuss discharge and care at home. Father may agree to be at home for total care. See what can come out of conversation with PT, nursing and nurse mis manager. May not clear PT, was improving previously. 2. Anxiety Had increased anxiety overnight. Increased Ativan to 8 hours as needed. 3. Headache Possible induced from stress. Will monitor for now. Patient states morphine did not help. Went away on its own yesterday. 4. Safety at home Some concerns with patient life at home. Boyfriend threatening to kick patient out of home. 5. B12 deficiency Continue supplementation at this time. 6. Bipolar Patient has history of this. Continue medication. Plan/VTE VTE Prophylaxis Ordered?: Yes VS, I&O, 24H, Fishbone Vital Signs/I&O Vital Signs Date Time Temp Pulse Resp B/P (MAP) Pulse Ox O2 Delivery O2 Flow Rate FiO2 08/13/17 07:51 67 104/63 (77) 08/13/17 06:00 97.3 17 95 Room Air Laboratory Data 24H LABS Laboratory Tests 2 08/13/17 06:06: Nucleated Red Blood Cells % (auto) 0.0, Anion Gap 4L, Glomerular Filtration Rate > 60.0, Blood Urea Nitrogen 11, Creatinine 0.51L, Sodium Level 138, Potassium Level 4.0, Chloride Level 105, Carbon Dioxide Level 29, Calcium Level 8.3L, Aspartate Amino Transf (AST/SGOT) 24, Alanine Aminotransferase (ALT/SGPT) 36, Alkaline Phosphatase 54, Total Bilirubin 0.2#, Total Protein 5.5L, Albumin 2.8L, Magnesium Level 2.0, Albumin/Globulin Ratio 1.04 CBC/BMP Laboratory Tests 08/13/17 06:06 Red Blood Count 3.78 L, Mean Corpuscular Volume 85.4, Mean Corpuscular Hemoglobin 28.3, Mean Corpuscular Hemoglobin Concent 33.1, Red Cell Distribution Width 13.3, Calcium Level 8.3 L, Aspartate Amino Transf (AST/SGOT) 24, Alanine Aminotransferase (ALT/SGPT) 36, Alkaline Phosphatase 54, Total Bilirubin 0.2 #, Total Protein 5.5 L, Albumin 2.8 L Microbiology Microbiology 08/06/17 Blood Culture - Final, Complete NO GROWTH AFTER 5 DAYS 08/06/17 Blood Culture - Final, Complete NO GROWTH AFTER 5 DAYS 08/06/17 Gram Stain - Final, Complete 08/06/17 CSF Culture - Final, Complete 08/06/17 - Final, Complete 08/06/17 Stool Lactoferrin - Final, Complete 08/06/17 Gastrointestinal Tract Panel (PCR) - Final, Complete 08/06/17 Respiratory Virus Panel (PCR) (CHETAN) - Final, Complete 08/06/17 Urine Culture - Final, Complete GME ATTESTATION GME ATTESTATION My preceptor for this patient encounter was physically present in the building during the encounter and was fully available. As needed, all aspects of the patient interview, examination, medical decision making process, and medical care plan development were reviewed and approved by the preceptor. Preceptor is aware and concurs with the plan as stated in the body of this note and will attest to such by his/her cosignature. VENKATA HAMMOND DO Aug 13, 2017 08:23
[2017-08-13] MEDS: NORCO, ANEXSIA 5/325MG TABLET (HYDROcodone/ACETAMINOPHEN) PO PRN (19:09)
[2017-08-13 22:00] VITALS: BP 103/56
[2017-08-13] MEDS: OXcarbazepine 300 MG TAB PO SCH (22:09)
[2017-08-13] MEDS: traZODone 50 MG TAB PO SCH (22:09)
[2017-08-14 06:00] VITALS: BP 92/55
[2017-08-14] MEDS: SLF 3 ML SYR IV SCH (06:13)
[2017-08-14] MEDS: HEPARIN SOD (PORCINE) 5000 UNITS/ML VIAL SC SCH (06:13)
[2017-08-14] MEDS: CYANOCOBALAMIN 500 MCG TAB PO SCH (08:53)
[2017-08-14] MEDS: LACTOBACILLUS ACIDOPHILUS CAP (BACID) PO SCH (08:53)
[2017-08-14] MEDS: THIAMINE 100 MG TAB PO SCH (08:53)
[2017-08-14] MEDS: MULTIVITAMINS/MINERALS THERAP 1 TAB PO SCH (08:54)
[2017-08-14] MEDS: FOLIC ACID 1 MG TAB PO SCH (08:54)
[2017-08-14] MEDS: LORazepam 2 MG/ML VIAL (J2060) IV PRN (09:08)
--- NOTE | 2017-08-14 11:53 | IPNPDOC ---
Text Note Date of Service The patient was seen on 08/14/17. NOTE Subjective: Patient seen and examined at bedside, sleeping on my arrival. No new medical complaints. Objective: General: NAD, lying comfortably in bed HEENT: NC/AT, EOMI Lungs: CTA B/L Heart: +S1S2, RRR Abd: soft, NT, +BS Ext: no edema ASSESSMENT: This is a 27-year-old who presented with generalized weakness and hypotension. PLAN: 1. The patient has had variable weakness with inconsistent physical findings during her stay. Dr. Pereira has evaluated the patient twice. Physical therapy notes are quite revealing in this regard as well. She has had MRI of her brain, cervical spine, thoracic spine, lumbar spine. She has had a lumbar puncture, extensive and wide ranging blood workup, RONNY is still pending. The possibility of fictitious disorder or conversion disorder is considered. She has been seen by Dr. Tian. The patient today seems more motivated to leave the hospital. 2. The patient has self-reported hepatic cyst. She had been followed by GI in [place]. Plan is to followup in August. CT of the abdomen did not show anything significant apart from fatty liver, but would followup with GI in [place] after discharge. 3. The patient has irritable bowel. 4. The patient has minimally decreased B12 during her stay. She has been given some intramuscular (IM) B12 and that has been switched to oral. 5. The patient has had hypokalemia during her stay. 6. There is also some concern that the patient may have been taking prescription medicine from her purse without letting the nursing staff know. VS,Fishbone, I+O VS, Fishbone, I+O Vital Signs Date Time Temp Pulse Resp B/P (MAP) Pulse Ox O2 Delivery O2 Flow Rate FiO2 08/14/17 06:00 97.3 68 17 92/55 (67) 98 Room Air I&O- Last 24 Hours up to 6 AM 08/15/17 06:00 Output Total 300 ml Balance -300 ml VENKATA NEGRON MD Aug 14, 2017 10:50
[2017-08-14] MEDS ORDERED: FOLI1TAB4 PO (14:07)
[2017-08-14] MEDS ORDERED: VITA500T53 PO (14:07)
[2017-08-14] MEDS ORDERED: THIA100TA PO (14:07)
--- NOTE | 2017-08-14 14:34 | DS.PDOC ---
Discharge Summary General Date of Admission Aug 06, 2017 at 21:14 Date of Discharge 08/14/17 Primary Care Physician: A Specialist/Consultants Involve: VIKAS PINEDA MD Discharge Summary PROCEDURES PERFORMED DURING STAY: Lumbar puncture DISCHARGE DIAGNOSES: 1. Factitious / conversion disorder. 2. Migraines 3. Irritable bowel. COMPLICATIONS/CHIEF COMPLAINT: Diarrhea; Generalized Weakness. HISTORY OF PRESENT ILLNESS: This is a 27-year-old female patient with underlying medical history of bipolar 1, anxiety, chronic constipation, had a colectomy secondary to constipation in March 2017 at [facility], gastroesophageal reflux disease (GERD), irritable bowel syndrome. Patient has chronic abdominal pain since the colectomy surgery, surgical attending, Jose Trevino , and recently being worked up for large liver cyst, thick lesions. Patient presented with 2 weeks of progressively worsening lightheadedness that is intermittent and generalized weakness of lower extremities. The patient also reported 3 weeks ago with URI symptoms that has recovered but for the past 2 days, the patient reported that her weakness has gotten worse and is also involving her upper extremities to such an extent, also reported numbness intermittently of bilateral lower extremities with difficulty ambulating, reported watery diarrhea about eight times since yesterday. At baseline, the patient, after the surgery, has about three bowel movements a day. The patient reported diarrhea is nonbloody, watery. No sick contacts at home. Denies any fevers. Feeling very anxious. Denies overdosing on medication. Takes [id number] probiotics and multivitamin. Denies any chest pain, pressure or discomfort. Reported anxious. Denies suicidality. HOSPITAL COURSE: The patient has had variable weakness with inconsistent physical findings during her stay. Dr. Pineda has evaluated the patient twice. Physical therapy notes are quite revealing in this regard as well. She has had MRI of her brain, cervical spine, thoracic spine, lumbar spine. She has had a lumbar puncture, extensive and wide ranging blood workup, all within normal limits. The possibility of fictitious disorder or conversion disorder is considered. She had been seen by Dr. Tian. The patient has self-reported hepatic cyst. She had been followed by GI in [place]. Plan is to followup in August. CT of the abdomen did not show anything significant apart from fatty liver, but would followup with GI in [place] after discharge. The patient has minimally decreased B12 during her stay. She has been given some intramuscular (IM) B12 and that has been switched to oral. The patient had hypokalemia during her stay. DISCHARGE MEDICATIONS: Please see below. ALLERGIES: Please see below. PHYSICAL EXAMINATION ON DISCHARGE: Please refer to progress note from day of discharge. LABORATORY DATA: Please see below. ACTIVITY: As tolerated and as per further recommendations - patient discharged home with wheelchair. DISCHARGE PLAN: DISPOSITION: Discharged home with outpatient follow up and services as recommended. ITEMS TO FOLLOWUP ON ON OUTPATIENT: 1. Follow up with PCP in 1-3 days. 2. Follow up with counsellor/psychiatry in 1-3 days. DISCHARGE CONDITION: [Stable]. TIME SPENT ON DISCHARGE: Greater than 30 minutes. Vital Signs/I&Os Vital Signs Date Time Temp Pulse Resp B/P (MAP) Pulse Ox O2 Delivery O2 Flow Rate FiO2 08/14/17 09:00 Room Air 08/14/17 06:00 97.3 68 17 92/55 (67) 98 I&O- Last 24 Hours up to 6 AM 08/15/17 06:00 Output Total 300 ml Balance -300 ml Microbiology Microbiology 08/06/17 Blood Culture - Final, Complete NO GROWTH AFTER 5 DAYS 08/06/17 Blood Culture - Final, Complete NO GROWTH AFTER 5 DAYS 08/06/17 Gram Stain - Final, Complete 08/06/17 CSF Culture - Final, Complete 08/06/17 - Final, Complete 08/06/17 Stool Lactoferrin - Final, Complete 08/06/17 Gastrointestinal Tract Panel (PCR) - Final, Complete 08/06/17 Respiratory Virus Panel (PCR) (CHETAN) - Final, Complete 08/06/17 Urine Culture - Final, Complete Discharge Medications Scheduled (Probiotic) 1 Cap Cap, 1 CAP PO DAILY, (Reported) Cyanocobalamin (Vitamin B12) 500 Mcg Tab, 1,000 MCG PO DAILY Folic Acid (Folic Acid) 1 Mg Tab, 1 MG PO DAILY Multivitamins *[facility] STOCKED* (Thera M Plus *[facility] STOCKED*) 1 Tab Tab, 1 TAB PO DAILY, (Reported) Oxcarbazepine (Oxcarbazepine) 600 Mg Tab, 1,200 MG PO QHS, (Reported) Thiamine Hcl (Thiamine Hcl) 100 Mg Tab, 100 MG PO DAILY Trazodone HCl (Trazodone HCl) 150 Mg Tab, 150 MG PO QHS, (Reported) Scheduled PRN Clonazepam (Klonopin) 1 Mg Tab, 1 MG PO TID PRN for ANXIETY/AGITATION, (Reported ) Pregabalin (Lyrica) 75 Mg Cap, 75 MG PO BID PRN for PAIN, (Reported) Allergies Coded Allergies: No Known Drug Allergy (Verified Allergy, Unknown, 04/23/17) VENKATA NEGRON MD Aug 14, 2017 14:34
== END 2017-08-14 16:07 | disposition home or self-care (01) | DRG 756 ==
LOC: M ED 14:19 → M ED INP 21:14 → M ICU 22:38 → M PCU 08-07 23:09 → M MSPAV 08-09 15:02
PROVIDERS: ADMIT Hospitalist; ATTEND Internal Medicine
PROC: 009U3ZX Drainage of Spinal Canal, Percutaneous Approach, Diagnostic (ICD-10-PCS; principal; 2017-08-06)
DX: F44.4 Conversion disorder with motor symptom or deficit (principal); K76.0 Fatty (change of) liver, not elsewhere classified; E53.8 Deficiency of other specified B group vitamins; I95.1 Orthostatic hypotension; R19.7 Diarrhea, unspecified; E87.6 Hypokalemia; F31.9 Bipolar disorder, unspecified; F43.10 Post-traumatic stress disorder, unspecified; F41.0 Panic disorder [episodic paroxysmal anxiety]; F68.10 Factitious disorder imposed on self, unspecified; R53.1 Weakness; G43.909 Migraine, unspecified, not intractable, without status migrainosus; K58.8 Other irritable bowel syndrome; K59.00 Constipation, unspecified; K21.9 Gastro-esophageal reflux disease without esophagitis; Z79.899 Other long term (current) drug therapy; Z87.891 Personal history of nicotine dependence; R10.9 Unspecified abdominal pain; F60.7 Dependent personality disorder

== ENCOUNTER 2017-10-28 12:53 | Emergency (ER) | payer OTHER ==
[2017-10-28] MEDS: hydrOXYzine 50 MG TAB PO (14:35)
[2017-10-28 15:01] LABS: VITAMIN B12 LEVEL 508 PG/ML (247-911)
[2017-10-28 15:02] LABS: FOLATE 9.9 NG/ML (>5.4)
== END 2017-10-28 15:46 | disposition home or self-care (01) ==
LOC: M ED 12:53
DX: F41.9 Anxiety disorder, unspecified (principal); F43.0 Acute stress reaction; F32.9 Major depressive disorder, single episode, unspecified; G43.909 Migraine, unspecified, not intractable, without status migrainosus; K21.9 Gastro-esophageal reflux disease without esophagitis; N39.0 Urinary tract infection, site not specified; F17.200 Nicotine dependence, unspecified, uncomplicated; F12.10 Cannabis abuse, uncomplicated; Z79.899 Other long term (current) drug therapy
CPT/HCPCS: 82746

== ENCOUNTER 2017-11-06 21:44 | Emergency (ER) | payer OTHER ==
[2017-11-06] MEDS: KETOROLAC 30 MG/ML VIAL (J1885) IV (23:23)
[2017-11-06 23:36] LABS: BASO % 0.7 % (0.0-1.0); EOS # 0.2 10^3/uL (0.0-0.50); EOS % 3.2 % (0.0-3.0); HEMATOCRIT 33.3 % (36.0-47.0); HEMOGLOBIN 11.3 g/dl (12.0-16.0); IMMATURE GRANULOCYTE % 0.2 % (0-0); LYMPH # 2.1 10^3/uL (1.5-6.5); LYMPH % 39.7 % (24.0-44.0); MEAN CORPUSCULAR HEMOGLOBIN 29.5 pg (27.0-33.0); MEAN CORPUSCULAR HGB CONC 33.9 g/dl (32.0-36.5); MEAN CORPUSCULAR VOLUME 86.9 fl (80.0-96.0); MONO # 0.4 10^3/uL (0.0-0.8); MONO % 6.5 % (0.0-5.0); NEUTROPHILS # 2.7 10^3/uL (1.8-7.7); NEUTROPHILS % 49.7 % (36.0-66.0); PLATELET COUNT, AUTOMATED 216 10^3/uL (150-450); RED BLOOD COUNT 3.83 10^6/uL (4.00-5.40); WHITE BLOOD COUNT 5.4 10^3/uL (4.0-10.0)
[2017-11-06] MEDS: NS 1,000 ML IV (23:40)
[2017-11-06] MEDS: PROMETHAZINE INJ 25 MG/ML VIAL (J2550) IV (23:41)
[2017-11-07 00:01] LABS: CONTROL LINE HCG INT CTR LINE PRESENT; HCG, SERUM QUALITATIVE NEGATIVE (NEGATIVE)
[2017-11-07 00:08] LABS: ALBUMIN 3.4 GM/DL (3.2-5.2); ALBUMIN/GLOBULIN RATIO 1.26 (1.00-1.93); ALKALINE PHOSPHATASE 54 U/L (45-117); ALT/SGPT 18 U/L (12-78); ANION GAP 7 MEQ/L (8-16); AST/SGOT 12 U/L (7-37); BILIRUBIN,DIRECT 0.1 MG/DL (0.0-0.2); BILIRUBIN,TOTAL 0.4 MG/DL (0.2-1.0); BLOOD UREA NITROGEN 13 MG/DL (7-18); CALCIUM LEVEL 8.7 MG/DL (8.5-10.1); CARBON DIOXIDE LEVEL 30 MEQ/L (21-32); CHLORIDE LEVEL 106 MEQ/L (98-107); CREATININE FOR GFR 0.75 MG/DL (0.55-1.02); GLOMERULAR FILTRATION RATE > 60.0 (>60); GLUCOSE, FASTING 82 MG/DL (70-105); POTASSIUM SERUM 3.8 MEQ/L (3.5-5.1); SODIUM LEVEL 143 MEQ/L (136-145); TOTAL PROTEIN 6.1 GM/DL (6.4-8.2)
[2017-11-07] MEDS: ACETAMINOPHEN TAB 650MG DOSE (2X325MG) PO (00:48)
== END 2017-11-07 00:47 | disposition home or self-care (01) ==
LOC: M ED 11-07 00:47
DX: R11.2 Nausea with vomiting, unspecified (principal); M79.1 Myalgia; G43.909 Migraine, unspecified, not intractable, without status migrainosus; F32.9 Major depressive disorder, single episode, unspecified; F41.0 Panic disorder [episodic paroxysmal anxiety]; I95.9 Hypotension, unspecified; F17.200 Nicotine dependence, unspecified, uncomplicated; Z79.899 Other long term (current) drug therapy
CPT/HCPCS: J1885

== ENCOUNTER 2017-11-11 14:02 | Emergency (ER) | payer OTHER ==
[2017-11-11 17:55] LABS: AMPHETAMINES LEVEL URINE NEGATIVE (NEGATIVE); BARBITURATES URINE NEGATIVE (NEGATIVE); BENZODIAZEPINES URINE NEGATIVE (NEGATIVE); CANNABINOIDS URINE POSITIVE (NEGATIVE); COCAINE METABOLITE URINE NEGATIVE (NEGATIVE); METHADONE URINE NEGATIVE (NEGATIVE); OPIATES URINE NEGATIVE (NEGATIVE); PHENCYCLIDINE URINE NEGATIVE (NEGATIVE)
== END 2017-11-11 18:18 | disposition home or self-care (01) ==
LOC: M ED 14:02
DX: F41.1 Generalized anxiety disorder (principal); K21.9 Gastro-esophageal reflux disease without esophagitis; K76.89 Other specified diseases of liver; Z79.899 Other long term (current) drug therapy; F17.210 Nicotine dependence, cigarettes, uncomplicated
CPT/HCPCS: 80307

== ENCOUNTER 2017-11-15 14:55 | Emergency (ER) | payer OTHER ==
[2017-11-15] MEDS: NS 1,000 ML IV (17:00)
[2017-11-15 17:52] LABS: BASO % 0.6 % (0.0-1.0); EOS # 0.1 10^3/uL (0.0-0.50); EOS % 1.4 % (0.0-3.0); HEMATOCRIT 36.8 % (36.0-47.0); HEMOGLOBIN 12.2 g/dl (12.0-16.0); IMMATURE GRANULOCYTE % 0.2 % (0-0); LYMPH # 1.9 10^3/uL (1.5-6.5); LYMPH % 38.8 % (24.0-44.0); MEAN CORPUSCULAR HEMOGLOBIN 28.6 pg (27.0-33.0); MEAN CORPUSCULAR HGB CONC 33.2 g/dl (32.0-36.5); MEAN CORPUSCULAR VOLUME 86.2 fl (80.0-96.0); MONO # 0.2 10^3/uL (0.0-0.8); MONO % 4.8 % (0.0-5.0); NEUTROPHILS # 2.7 10^3/uL (1.8-7.7); NEUTROPHILS % 54.2 % (36.0-66.0); PLATELET COUNT, AUTOMATED 220 10^3/uL (150-450); RED BLOOD COUNT 4.27 10^6/uL (4.00-5.40); RED CELL DISTRIBUTION WIDTH 12.8 % (11.5-14.5)
[2017-11-15 18:11] LABS: KETONE, URINE AUTO RFX NEGATIVE (NEGATIVE); LEUKOCYTE ESTERASE UR AUTO RFX 2+ (NEGATIVE); MUCUS, URINE RFX SMALL (NEGATIVE); NITRITE, URINE AUTO RFX NEGATIVE (NEGATIVE); RBC, URINE AUTO RFX 6 /HPF (0-3); SPECIFIC GRAVITY UR AUTO RFX 1.017 (1.002-1.035); SQUAM EPITHELIAL CELL UR AURFX 11 /HPF (0-6); WBC, URINE AUTO RFX 29 /HPF (0-3)
[2017-11-15 18:35] LABS: ALBUMIN 3.9 GM/DL (3.2-5.2); ALBUMIN/GLOBULIN RATIO 1.44 (1.00-1.93); ALKALINE PHOSPHATASE 57 U/L (45-117); ALT/SGPT 18 U/L (12-78); ANION GAP 7 MEQ/L (8-16); AST/SGOT 13 U/L (7-37); BILIRUBIN,TOTAL 0.5 MG/DL (0.2-1.0); BLOOD UREA NITROGEN 8 MG/DL (7-18); CALCIUM LEVEL 8.6 MG/DL (8.5-10.1); CARBON DIOXIDE LEVEL 27 MEQ/L (21-32); CHLORIDE LEVEL 109 MEQ/L (98-107); CREATININE FOR GFR 0.69 MG/DL (0.55-1.02); GLOMERULAR FILTRATION RATE > 60.0 (>60); GLUCOSE, FASTING 84 MG/DL (70-105); POTASSIUM SERUM 3.9 MEQ/L (3.5-5.1); SODIUM LEVEL 143 MEQ/L (136-145); TOTAL PROTEIN 6.6 GM/DL (6.4-8.2)
[2017-11-15 19:41] LABS: CHLAMYDIA DNA AMPLIFICATION NEGATIVE (NEGATIVE); GC DNA AMPLIFICATION NEGATIVE (NEGATIVE)
== END 2017-11-15 19:47 | disposition home or self-care (01) ==
LOC: M ED 14:55
DX: N39.0 Urinary tract infection, site not specified (principal); F41.9 Anxiety disorder, unspecified; K21.9 Gastro-esophageal reflux disease without esophagitis; F32.9 Major depressive disorder, single episode, unspecified; F17.200 Nicotine dependence, unspecified, uncomplicated; Z79.899 Other long term (current) drug therapy
CPT/HCPCS: 80053

== ENCOUNTER → 2017-12-09 | Outpatient (REF) | payer OTHER ==
[2017-12-09 16:04] LABS: CHLAMYDIA DNA AMPLIFICATION NEGATIVE (NEGATIVE); GC DNA AMPLIFICATION NEGATIVE (NEGATIVE)
== END ==
LOC: M LAB REF 13:07
DX: N39.0 Urinary tract infection, site not specified (principal)

== ENCOUNTER 2017-12-30 22:04 | Emergency (ER) | payer OTHER ==
[2017-12-31 01:06] LABS: INFLUENZA A AMPLIFICATION NEGATIVE (NEGATIVE); INFLUENZA B AMPLIFICATION NEGATIVE (NEGATIVE)
== END 2017-12-31 01:20 | disposition home or self-care (01) ==
LOC: M ED 12-31 01:20
DX: B34.9 Viral infection, unspecified (principal); E03.9 Hypothyroidism, unspecified; G43.909 Migraine, unspecified, not intractable, without status migrainosus; K21.9 Gastro-esophageal reflux disease without esophagitis; F41.9 Anxiety disorder, unspecified; F33.9 Major depressive disorder, recurrent, unspecified; K76.89 Other specified diseases of liver; Z79.899 Other long term (current) drug therapy; Z77.098 Contact with and (suspected) exposure to other hazardous, chiefly nonmedicinal, chemicals
CPT/HCPCS: 87502

== ENCOUNTER → 2018-02-10 | Outpatient (CLI) | payer OTHER ==
[2018-02-10 18:14] LABS: APPEARANCE, URINE CLOUDY (CLEAR); BACTERIA, URINE AUTO NEGATIVE (NEGATIVE); BILIRUBIN, URINE AUTO NEGATIVE (NEGATIVE); BLOOD, URINE BLOOD NEGATIVE (NEGATIVE); COLOR, URINE YELLOW (YELLOW); GLUCOSE, URINE (UA) AUTO NEGATIVE (NEGATIVE); KETONE, URINE AUTO NEGATIVE (NEGATIVE); LEUKOCYTE ESTERASE, URINE AUTO 3+ (NEGATIVE); MUCUS, URINE SMALL (NEGATIVE); NITRITE, URINE AUTO NEGATIVE (NEGATIVE); PROTEIN, URINE AUTO NEGATIVE (NEGATIVE); RBC, URINE AUTO 4 /HPF (0-3); SPECIFIC GRAVITY URINE AUTO 1.024 (1.002-1.035); SQUAMOUS EPITHELIAL CELL UR AU 23 /HPF (0-6); UROBILINOGEN, URINE AUTO 0.2 mg/dL (0.0-2.0); WBC, URINE AUTO 15 /HPF (0-3)
== END ==
LOC: M RAD 13:10
DX: N83.202 Unspecified ovarian cyst, left side (principal); N39.0 Urinary tract infection, site not specified
CPT/HCPCS: 76856

== ENCOUNTER 2018-06-02 09:21 | Day surgery (SDC) | payer OTHER ==
[~2018-06-02 09:21] MED LIST changes: -/ONDA4TA OR; -ATIV1TAB7 PO; -AUGM875T28 PO; -BENZ0.5T; -CIPR-249 PO; -CLON1TAB PO; -IBUP600T OR; -KEFL500C17 PO; -KLON1TAB PO; -LATU80TA PO; +LR 1,000 ML IV; -MILKSUS OR; -MORP15TA2; -NORC1TAB4 PO; -NORCOTAB PO; -ONDA4TAB5; -OXCA600T PO; -PANT40TA2; -PHEN 25 PO; -PRE; -PROM25TA; -Prenatal Vitamin PO; -SIME180C PO; -TIGA300C2 PO; -TRAZ-136 PO; -TRAZ1TAB14 PO; -ZANT150T OR; -hydroxyzine
[2018-06-02 09:54] LABS: HEMATOCRIT 37.5 % (36.0-47.0); MEAN CORPUSCULAR VOLUME 90.6 fl (80.0-96.0); PLATELET COUNT, AUTOMATED 244 10^3/uL (150-450); RED BLOOD COUNT 4.14 10^6/uL (4.00-5.40); WHITE BLOOD COUNT 5.4 10^3/uL (4.0-10.0)
[2018-06-02] MEDS ORDERED: ROCURONIUM BROMIDE 50 MG/5 ML VIAL As Ordered (11:24)
[2018-06-02] MEDS ORDERED: fentaNYL 100 MCG/2 ML INJECTION (J3010) As Ordered ×2 (11:24→12:42)
[2018-06-02] MEDS ORDERED: MIDAZOLAM INJ 2 MG/2 ML VIAL (J2250) As Ordered (11:24)
[2018-06-02] MEDS ORDERED: LIDOCAINE 2% INJ 100 MG/5 ML SDV (FOR ANES.) As Ordered (11:25)
[2018-06-02] MEDS ORDERED: PROPOFOL 200 MG/20 ML VIAL As Ordered (11:25)
[2018-06-02] MEDS ORDERED: METOCLOPRAMIDE INJ 10MG/2ML VIAL (J2765) As Ordered (11:55)
[2018-06-02] MEDS ORDERED: ONDANSETRON 4MG/2ML VIAL (J2405) As Ordered (11:55)
[2018-06-02] MEDS ORDERED: dexameTHASONE 4 MG/ML 1ML VIAL (J1100) As Ordered (11:55)
[2018-06-02] MEDS: BUPIVACAINE HCL 0.25% 30 ML VIAL As Ordered (12:40)
[2018-06-02] MEDS: METHYLENE BLUE 0.5% (5MG/ML) 10 ML AMP (PROVAYBLUE)(Q9968 PER 1MG) As Ordered (13:20)
[2018-06-02] MEDS: HYDROMORPHONE HCL 0.5 MG/ 0.5 ML SYRINGE (J1170 PER 1) IV ×9 (14:10→15:30)
[2018-06-02] MEDS: LR 1,000 ML IV ×3 (14:15→22:37)
[2018-06-02] MEDS ORDERED: PERCOCET 5MG/325MG TAB PO (14:15)
[2018-06-02] MEDS ORDERED: ONDANSETRON 4MG/2ML VIAL (J2405) IV (14:15)
[2018-06-02] MEDS: fentaNYL 100 MCG/2 ML INJECTION (J3010) IV ×8 (14:35→15:10)
[2018-06-02] MEDS: PERCOCET 5MG/325MG TAB PO ×3 (14:40→19:40)
[2018-06-02] MEDS ORDERED: PROMETHAZINE INJ 25 MG/ML VIAL (J2550) IV (15:00)
[2018-06-02] MEDS: MORPHINE 4 MG/ML 1ML VIAL/SYRINGE (J2270) IV ×2 (16:10→20:13)
[2018-06-02] MEDS: KETOROLAC 30 MG/ML VIAL (J1885) IV ×2 (17:18→23:22)
[2018-06-02] MEDS: ONDANSETRON 4MG/2ML VIAL (J2405) IV (17:22)
[2018-06-02] MEDS: DOCUSATE SODIUM 100 MG CAP PO (20:12)
[2018-06-02] MEDS: traZODone 100 MG TAB PO (20:12)
[2018-06-03] MEDS: LR 1,000 ML IV (00:03)
[2018-06-03] MEDS: MORPHINE 4 MG/ML 1ML VIAL/SYRINGE (J2270) IV ×3 (00:38→09:59)
[2018-06-03] MEDS: PERCOCET 5MG/325MG TAB PO ×3 (01:58→12:01)
[2018-06-03] MEDS: DOCUSATE SODIUM 100 MG CAP PO (07:55)
[2018-06-03] MEDS: ONDANSETRON 4MG/2ML VIAL (J2405) IV (09:18)
== END 2018-06-03 12:45 | disposition home or self-care (01) ==
LOC: M SDC 09:21 → M MSPAV 15:48
DX: N94.6 Dysmenorrhea, unspecified (principal); R10.2 Pelvic and perineal pain; F41.9 Anxiety disorder, unspecified; F32.9 Major depressive disorder, single episode, unspecified; Z79.899 Other long term (current) drug therapy
CPT/HCPCS: 58571

== ENCOUNTER 2018-12-09 22:34 | Emergency (ER) | payer OTHER ==
[~2018-12-09] VITALS: Ht 157.5 cm; Wt 84.5 kg
[~2018-12-09 22:34] MED LIST changes: +/ONDA4TA OR; +ATIV1TAB7 PO; +AUGM875T28 PO; +BENZ0.5T; +CIPR-249 PO; +CLON1TAB8 PO; +FOLI1TAB11 PO; +GABA-843 PO; +HYDR-3363 PO; +IBUP200C25 PO; +IBUP600T OR; +KEFL500C17 PO; +KLON1TAB PO; +LATU80TA PO; -LR 1,000 ML IV; +LYRI75CA PO; +MILKSUS OR; +MORP15TA2; +MUCITAB PO; +NAPR-50 PO; +NORC1TAB4 PO; +NORCOTAB PO; +ONDA4TAB5; +OXCA600T8 PO; +OXYC1TAB23 PO; +PANT40TA3; +PHEN 25 PO; +PRE; +PREG25CA PO; +PRIS1TAB PO; +PROBCAP14 PO; +PROM25TA12; +PROM50TA4 PO; +PYRI1TAB5 PO; +Prenatal Vitamin PO; +SERO50TA PO; +SIME180C PO; +THIA100TA PO; +TIGA300C2 PO; +TRAZ-163 PO; +TRAZ1TAB14 PO; +VIST25CA PO; +VITA500T53 PO; +VITMTA PO; +ZANT150T OR; +hydroxyzine
[2018-12-09 22:35] VITALS: BP 138/83
[2018-12-09] MEDS ORDERED: TRAM50TA2 (22:43)
[2018-12-09] MEDS ORDERED: ALPR2TAB3 (22:43)
[2018-12-09] MEDS ORDERED: DULO1CAP2 (22:43)
[2018-12-09] MEDS ORDERED: ALPRAZolam 0.5 MG TAB PO ONE (23:15)
== END 2018-12-10 00:19 | disposition home or self-care (01) ==
LOC: M ED 22:34
DX: F41.9 Anxiety disorder, unspecified (principal)

== ENCOUNTER → 2019-01-01 | Outpatient (CLI) | payer OTHER ==
[~2019-01-01] MED LIST changes: +ALPR2TAB3; +DULO1CAP2; +TRAM50TA2
== END ==
LOC: M LAB 10:35
PROVIDERS: ATTEND Registered Nurse
DX: F41.1 Generalized anxiety disorder (principal)

== ENCOUNTER 2019-01-19 09:03 | Emergency (ER) | payer OTHER ==
[~2019-01-19] VITALS: Ht 157.5 cm; Wt 76.8 kg
[~2019-01-19 09:03] MED LIST changes: -/ONDA4TA OR; +HYDR-3715 PO; -NAPR-50 PO; +NAPR-837 PO; -NORC1TAB4 PO; +NORC1TAB7 PO; -NORCOTAB PO; +ONDA-1 OR; +VITA500T17 PO; -VITA500T53 PO
[2019-01-19] MEDS ORDERED: LITH300C (09:18)
[2019-01-19] MEDS ORDERED: OLAN10TA2 (09:18)
[2019-01-19] MEDS ORDERED: CLON-412 (09:18)
[2019-01-19] MEDS ORDERED: BENZ-52 (09:18)
[2019-01-19] MEDS ORDERED: METHOCARBAMOL 500 MG TAB PO ONE (10:30)
[2019-01-19] MEDS ORDERED: KETOROLAC 60 MG/2 ML VIAL (J1885) IM ONE (10:30)
--- NOTE | 2019-01-19 11:12 | REP ---
CT Lumbar Spine without contrast HISTORY: Trauma COMPARISON: None There is no disc bulge or herniation at the L1-2 through L5 S1 levels. The nerves exit the neural foramina without compression. The intervertebral discs and vertebral bodies are normal in height. There is no acute fracture or subluxation. IMPRESSION: Normal study. Electronically Signed by Denis Bright MD 01/19/2019 11:04 A
[2019-01-19] MEDS ORDERED: ROBA500T PO (11:53)
[2019-01-19] MEDS ORDERED: NAPR-837 PO (11:53)
[2019-01-19 11:58] VITALS: BP 117/81
== END 2019-01-19 12:00 | disposition home or self-care (01) ==
LOC: M ED 09:03
DX: M54.40 Lumbago with sciatica, unspecified side (principal); S29.012A Strain of muscle and tendon of back wall of thorax, initial encounter; X50.0XXA Overexertion from strenuous movement or load, initial encounter; W01.0XXA Fall on same level from slipping, tripping and stumbling without subsequent striking against object, initial encounter; Y92.89 Other specified places as the place of occurrence of the external cause; G43.909 Migraine, unspecified, not intractable, without status migrainosus; I95.9 Hypotension, unspecified; K21.9 Gastro-esophageal reflux disease without esophagitis; Z87.440 Personal history of urinary (tract) infections; F41.0 Panic disorder [episodic paroxysmal anxiety]; F32.9 Major depressive disorder, single episode, unspecified; Z87.891 Personal history of nicotine dependence; Z79.899 Other long term (current) drug therapy
CPT/HCPCS: 72131; 96372; 99283; J1885

== ENCOUNTER → 2019-04-15 | Outpatient (REF) ==
[~2019-04-15] MED LIST changes: +BENZ-52; +CLON-412; +LITH300C; +OLAN10TA2; +ROBA500T PO
--- NOTE | 2019-04-15 13:47 | REP ---
Lumbar spine four views: Comparison is 01/06/2016. There is mild scoliosis convex left at the upper lumbar level, unchanged. Vertebral body heights, interspacing alignment are normal and unchanged. There is no spondylolysis or spondylolisthesis. The facets, pedicles and sacroiliac articulations are unremarkable. There are tubal ligation clips in the pelvis. There are both on the right on the current study. On the prior study ones on the right on the on the left. There are faintly visible small surgical staple lines in the mid abdomen. Impression: Mild scoliosis. Otherwise, negative lumbar spine. No interval change. Electronically Signed by Stepan Rene MD 04/15/2019 01:39 P
== END ==
LOC: M SMT 12:12
PROVIDERS: ATTEND Internal Medicine
DX: M51.36 Other intervertebral disc degeneration, lumbar region (principal)

== ENCOUNTER 2019-07-08 19:46 | Emergency (ER) | payer OTHER ==
[~2019-07-08] VITALS: Ht 157.5 cm; Wt 88.2 kg
[~2019-07-08 19:46] MED LIST changes: -BENZ0.5T; +BENZ0.5T23; -DULO1CAP2; +DULO1CAP5; +ONDA-83; -ONDA4TAB5; -TRAZ-163 PO; +TRAZ-257 PO
[2019-07-08] MEDS ORDERED: REXU1TAB2 PO (20:07)
[2019-07-08] MEDS ORDERED: IBUPROFEN 600 MG TAB PO ONE (22:30)
[2019-07-08 23:13] LABS: BASO % 0.6 % (0.0-1.0); EOS # 0.2 10^3/uL (0.0-0.5); EOS % 2.3 % (0.0-3.0); HEMATOCRIT 38.9 % (36.0-47.0); HEMOGLOBIN 12.6 g/dl (12.0-15.5); LYMPH # 2.1 10^3/uL (1.5-5.0); MEAN CORPUSCULAR HEMOGLOBIN 29.1 pg (27.0-33.0); MEAN CORPUSCULAR HGB CONC 32.4 g/dl (32.0-36.5); MEAN CORPUSCULAR VOLUME 89.8 fl (80.0-96.0); MONO # 0.4 10^3/uL (0.0-0.8); MONO % 5.4 % (0.0-5.0); NEUTROPHILS % 60.5 % (36.0-66.0); PLATELET COUNT, AUTOMATED 253 10^3/uL (150-450); RED BLOOD COUNT 4.33 10^6/uL (4.00-5.40); WHITE BLOOD COUNT 6.6 10^3/uL (4.0-10.0)
[2019-07-08 23:41] LABS: THYROID STIMULATING HORMONE 2.01 uIU/ML (0.358-3.740); URIC ACID 3.9 MG/DL (2.6-6.0)
[2019-07-09] MEDS ORDERED: NAPR-837 PO (00:10)
[2019-07-09 00:17] VITALS: BP 109/64
== END 2019-07-09 00:25 | disposition home or self-care (01) ==
LOC: M ED 19:46
DX: M79.672 Pain in left foot (principal); M79.671 Pain in right foot; R63.5 Abnormal weight gain; Z87.891 Personal history of nicotine dependence; Z90.79 Acquired absence of other genital organ(s); I95.9 Hypotension, unspecified; Z79.899 Other long term (current) drug therapy; Z90.49 Acquired absence of other specified parts of digestive tract; G43.909 Migraine, unspecified, not intractable, without status migrainosus

== ENCOUNTER → 2019-09-18 | Outpatient (REF) | payer OTHER ==
[~2019-09-18] MED LIST changes: -ONDA-83; +ONDA4TAB5; +REXU1TAB2 PO; +TRAZ-163 PO; -TRAZ-257 PO
[2019-09-18 17:21] LABS: APPEARANCE, URINE CLEAR (CLEAR); BACTERIA, URINE AUTO NEGATIVE (NEGATIVE); BILIRUBIN, URINE AUTO NEGATIVE (NEGATIVE); BLOOD, URINE BLOOD NEGATIVE (NEGATIVE); COLOR, URINE YELLOW (YELLOW); GLUCOSE, URINE (UA) AUTO NEGATIVE (NEGATIVE); KETONE, URINE AUTO NEGATIVE (NEGATIVE); LEUKOCYTE ESTERASE, URINE AUTO NEGATIVE (NEGATIVE); NITRITE, URINE AUTO NEGATIVE (NEGATIVE); PROTEIN, URINE AUTO NEGATIVE (NEGATIVE); RBC, URINE AUTO 1 /HPF (0-3); SPECIFIC GRAVITY URINE AUTO 1.019 (1.002-1.035); SQUAMOUS EPITHELIAL CELL UR AU 1 /HPF (0-6); UROBILINOGEN, URINE AUTO 0.2 mg/dL (0.0-2.0); WBC, URINE AUTO 1 /HPF (0-3)
== END ==
LOC: M LAB REF 16:30
PROVIDERS: ATTEND Physician Assistant
DX: N39.0 Urinary tract infection, site not specified (principal)

== ENCOUNTER 2019-10-04 19:27 | Emergency (ER) | payer OTHER ==
[~2019-10-04] VITALS: Ht 157.5 cm; Wt 81.8 kg
[2019-10-04] MEDS ORDERED: SAPH1SUB9 (19:40)
[2019-10-04] MEDS ORDERED: CLON0.5T2 (19:40)
[2019-10-04] MEDS ORDERED: predniSONE 20 MG TAB PO ONE (20:45)
[2019-10-04] MEDS ORDERED: diazePAM 10 MG TAB PO ONE (20:45)
[2019-10-04] MEDS ORDERED: NAPROXEN 250 MG TAB PO ONE (20:45)
[2019-10-04] MEDS ORDERED: PRED20TA PO (21:36)
[2019-10-04] MEDS ORDERED: METH1TAB40 PO (21:36)
[2019-10-04] MEDS ORDERED: NAPR-837 PO (21:36)
[2019-10-04] MEDS ORDERED: NORCO 5/325MG TABLET (BULK FOR ED) PO ONE (21:45)
[2019-10-04 21:51] VITALS: BP 120/76
== END 2019-10-04 21:53 | disposition home or self-care (01) ==
LOC: M ED 19:27
DX: M62.830 Muscle spasm of back (principal)

== ENCOUNTER 2019-12-21 16:25 | Emergency (ER) | payer OTHER ==
[~2019-12-21] VITALS: Ht 157.5 cm; Wt 86.3 kg
[~2019-12-21 16:25] MED LIST changes: +CLON0.5T2; +METH1TAB40 PO; +ONDA-83; -ONDA4TAB5; +PRED20TA PO; +SAPH1SUB9; -TRAZ-163 PO; +TRAZ-257 PO
[2019-12-21] MEDS ORDERED: ACETAMINOPHEN 325 MG TAB As Ordered ONE (18:40)
[2019-12-21] MEDS ORDERED: ACETAMINOPHEN TAB 650MG DOSE (2X325MG) PO ONE (19:00)
[2019-12-21 19:31] LABS: INFLUENZA A AMPLIFICATION NEGATIVE (NEGATIVE); INFLUENZA B AMPLIFICATION NEGATIVE (NEGATIVE)
[2019-12-21] MEDS ORDERED: IBUPROFEN 800 MG TAB PO ONE (19:45)
[2019-12-21 20:55] VITALS: BP 124/72
--- NOTE | 2019-12-21 21:40 | ECGEPIP ---
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
--- NOTE | 2019-12-22 07:40 | REP ---
PA and lateral chest: Comparison is 08/06/2017. The lung giles are clear. The cardiac size is normal. The yina, mediastinum, and skeletal structures are unremarkable. Impression: Negative PA and lateral chest. There is no interval change. Electronically Signed by Stepan Rene MD 12/22/2019 07:31 A
== END 2019-12-21 20:58 | disposition home or self-care (01) ==
LOC: M ED 16:25
DX: J06.9 Acute upper respiratory infection, unspecified (principal); B34.9 Viral infection, unspecified; F41.1 Generalized anxiety disorder; Z79.899 Other long term (current) drug therapy

== ENCOUNTER → 2020-02-05 | Outpatient (CLI) | payer OTHER | LOC: M LABSMTC 10:08 | PROVIDERS: ATTEND Family Medicine | DX: Z11.59 Encounter for screening for other viral diseases (principal); Z20.828 Contact with and (suspected) exposure to other viral communicable diseases ==

== ENCOUNTER 2020-06-06 17:11 | Emergency (ER) | payer OTHER ==
[~2020-06-06 17:11] MED LIST changes: +ASPIRIN 81 MG CHEW TABLET As Ordered ONE; +ASPIRIN 81 MG CHEW TABLET ONE; +NITROGLYCERIN 0.4 MG SUBL TABLET As Ordered ONE; +NITROGLYCERIN 0.4 MG SUBL TABLET ONE; +PANT40TA29; -PANT40TA3
[2020-06-06] MEDS ORDERED: ISOVUE-370 76% 100ML VIAL As Ordered ONE (18:31)
[2020-06-06] MEDS ORDERED: METOCLOPRAMIDE INJ 10MG/2ML VIAL (J2765 PER 1) As Ordered ONE (19:35)
[2020-06-06] MEDS ORDERED: ACETAMINOPHEN 325 MG TAB ONE (19:35)
[2020-06-06] MEDS ORDERED: METOCLOPRAMIDE INJ 10MG/2ML VIAL (J2765 PER 1) ONE (19:35)
[2020-06-06] MEDS ORDERED: ACETAMINOPHEN 325 MG TAB As Ordered ONE (19:35)
--- NOTE | 2020-07-11 14:07 | ECGEPIP ---
[facility] - ED Test Date: 2020-06-06 Pat Name: DAKOTA YING Department: Room: - Gender: Female Stage Director: HARI : 1990 Requested By: KENJI Arrieta Order Number: [id number] Reading MD: Milagros Sanchez Measurements Intervals [place] Rate: 72 P: 49 LA: 156 QRS: 36 QRSD: 98 T: 42 QT: 386 QTc: 422 Interpretive Statements SINUS RHYTHM NORMAL ECG NO PRIOR DUE TO DOWNTIME SEE SCANNED DOWNTIME REPORT
--- NOTE | 2020-07-14 16:22 | ECGEPIP ---
SINUS BRADYCARDIA BENIGN EARLY REPOLORIZATION SEE SCANNED DOWNTIME REPORT MTDD
[2020-07-22 21:54] LABS: BASO % 0.6 % (0.0-1.0); EOS # 0.1 10^3/uL (0.0-0.5); HEMATOCRIT 38.4 % (36.0-47.0); HEMOGLOBIN 12.6 g/dl (12.0-15.5); LYMPH # 1.6 10^3/uL (1.5-5.0); LYMPH % 24.9 % (24.0-44.0); MEAN CORPUSCULAR HEMOGLOBIN 29.7 pg (27.0-33.0); MEAN CORPUSCULAR HGB CONC 32.8 g/dl (32.0-36.5); MEAN CORPUSCULAR VOLUME 90.6 fl (80.0-96.0); MONO # 0.3 10^3/uL (0.0-0.8); NEUTROPHILS # 4.3 10^3/uL (1.5-8.5); NEUTROPHILS % 67.3 % (36.0-66.0); PLATELET COUNT, AUTOMATED 230 10^3/uL (150-450); RED BLOOD COUNT 4.24 10^6/uL (4.00-5.40); WHITE BLOOD COUNT 6.4 10^3/uL (4.0-10.0)
[2020-07-22 21:55] LABS: PARTIAL THROMBOPLASTIN TIME 31.3 SECONDS (24.2-38.5); PROTHROMBIN TIME 13.4 SECONDS (12.5-14.3)
[2020-08-20 22:14] LABS: BLOOD UREA NITROGEN 12 MG/DL (7-18); CALCIUM LEVEL 8.8 MG/DL (8.5-10.1); CARBON DIOXIDE LEVEL 27 MEQ/L (21-32); CHLORIDE LEVEL 111 MEQ/L (98-107); CREATININE FOR GFR 0.76 MG/DL (0.55-1.30); GLOMERULAR FILTRATION RATE > 60.0 (>60); GLUCOSE, FASTING 86 MG/DL (70-100); POTASSIUM SERUM 4.1 MEQ/L (3.5-5.1); SODIUM LEVEL 144 MEQ/L (136-145)
[2020-08-20 22:15] LABS: ALBUMIN 3.4 GM/DL (3.2-5.2); ALT/SGPT 16 U/L (12-78); BILIRUBIN,DIRECT 0.1 MG/DL (0.0-0.2); BILIRUBIN,TOTAL 0.4 MG/DL (0.2-1.0); CK-MB VALUE MASS 1.3 NG/ML (<3.6); CPK CREATINE PHOSPHOKINASE 57 U/L (26-192); FREE T4 1.02 NG/DL (0.76-1.46); HCG, SERUM QUALITATIVE NEGATIVE (NEGATIVE); LIPASE 380 U/L (73-393); MB/CK RELATIVE INDEX 2.28 (< OR =4); THYROID STIMULATING HORMONE 0.725 uIU/ML (0.358-3.740); TROPONIN I < 0.02 NG/ML (< 0.10)
[2020-08-20 22:16] LABS: CK-MB VALUE MASS 1.1 NG/ML (<3.6); CPK CREATINE PHOSPHOKINASE 52 U/L (26-192); MB/CK RELATIVE INDEX 2.12 (< OR =4); TROPONIN I < 0.02 NG/ML (< 0.10)
== END 2020-06-06 21:44 | disposition home or self-care (01) ==
LOC: M ED 17:11
DX: R07.9 Chest pain, unspecified (principal); R91.8 Other nonspecific abnormal finding of lung field; I51.7 Cardiomegaly; K44.9 Diaphragmatic hernia without obstruction or gangrene; Z79.899 Other long term (current) drug therapy
CPT/HCPCS: 71275; 80048; 80076; 82550; 82553; 83690; 84439; 84443; 84703; 85025; 85610; 85730; 93005; 93970; 96374; 99284; J2765; Q9967

== ENCOUNTER → 2020-09-02 | Outpatient (CLI) | payer OTHER ==
[~2020-09-02] MED LIST changes: -ASPIRIN 81 MG CHEW TABLET As Ordered ONE; -ASPIRIN 81 MG CHEW TABLET ONE; -NITROGLYCERIN 0.4 MG SUBL TABLET As Ordered ONE; -NITROGLYCERIN 0.4 MG SUBL TABLET ONE
--- NOTE | 2020-09-02 16:39 | REP ---
INDICATION: LUMBAGO W/ LT SIDED SCIATICA. COMPARISON: Comparison MRI study August 07, 2017.. TECHNIQUE: Sagittal and axial T1 and T2-weighted scans are acquired in the usual fashion with and without fat saturation. Sequences include spin echo, turbo spin-echo, and STIR imaging sequences. FINDINGS: Lumbar vertebral body heights are preserved. Alignment is normal. There is no evidence of spondylolysis or spondylolisthesis. Tip of the conus medullaris is normal in position and appearance at T12-L1. No extra vertebral abnormality is observed. Axial and sagittal images taken at the L5-S1 level demonstrate a broad-based focal disc protrusion on the right at L5-S1. This slightly compresses and displaces the exiting S1 root. There is mild facet hypertrophy bilaterally at L5-S1. No neural foraminal impingement. At L4-5, there is minimal facet hypertrophy. Mole no focal disc protrusion is seen. No spinal stenosis or foraminal narrowing is seen. The more proximal lumbar levels are unremarkable. IMPRESSION: There is a right posterolateral focal disc protrusion at L5-S1. Mild facet hypertrophy is noted at L5-S1. <Electronically signed by Yon Parker > 09/02/20 [id number]
== END ==
LOC: M PLARAD 15:00
PROVIDERS: ATTEND Nurse Practitioner Family
DX: M51.27 Other intervertebral disc displacement, lumbosacral region (principal); M54.42 Lumbago with sciatica, left side; M46.97 Unspecified inflammatory spondylopathy, lumbosacral region

== ENCOUNTER 2020-10-15 23:52 | Emergency (ER) | payer OTHER ==
[~2020-10-15] VITALS: Ht 154.9 cm; Wt 75.5 kg
[2020-10-16] MEDS ORDERED: LATU20TA (00:13)
[2020-10-16] MEDS ORDERED: NS 1,000 ML IV ONE (01:15)
[2020-10-16] MEDS ORDERED: KETOROLAC 30 MG/ML 1ML VIAL IV ONE (01:15)
[2020-10-16] MEDS ORDERED: GI COCKTAIL 50ML BTL(HYOSCYAMINE/MAALOX/LIDOCAINE VISCOUS)(1:3:1) PO ONE (01:15)
[2020-10-16 01:24] LABS: BASO # 0.1 10^3/uL (0.0-0.2); EOS # 0.1 10^3/uL (0.0-0.5); EOS % 1.8 % (0.0-3.0); HEMATOCRIT 38.5 % (36.0-47.0); HEMOGLOBIN 12.2 g/dl (12.0-15.5); LYMPH # 2.4 10^3/uL (1.5-5.0); LYMPH % 38.9 % (24.0-44.0); MEAN CORPUSCULAR HEMOGLOBIN 28.7 pg (27.0-33.0); MEAN CORPUSCULAR HGB CONC 31.7 g/dl (32.0-36.5); MEAN CORPUSCULAR VOLUME 90.6 fl (80.0-96.0); MONO # 0.4 10^3/uL (0.0-0.8); MONO % 6.4 % (0.0-5.0); NEUTROPHILS # 3.2 10^3/uL (1.5-8.5); NEUTROPHILS % 51.7 % (36.0-66.0); PLATELET COUNT, AUTOMATED 226 10^3/uL (150-450); RED BLOOD COUNT 4.25 10^6/uL (4.00-5.40); WHITE BLOOD COUNT 6.1 10^3/uL (4.0-10.0)
--- NOTE | 2020-10-16 01:48 | REPVR ---
PROCEDURE INFORMATION: Exam: US Abdomen, Limited; Right Upper Quadrant Exam date and time: 10/16/20 (1:17am) Age: 30 years old Clinical indication: Epigastric pain TECHNIQUE: Imaging protocol: US abdomen. Real time ultrasound with image documentation. Limited examination focused on the right upper quadrant. COMPARISON: US RENAL of 04/20/18 FINDINGS: The patient is tender over the entire abdomen. The liver is visually normal in size and texture. The gallbladder has top normal wall thickness (2.9 mm), with no stones nor sludge seen. No pericholecystic fluid is appreciated. The CBD is not dilated (3.2 mm diameter). The pancreas is not well visualized. The right kidney measures 11.0 cm in length, with no hydronephrosis appreciated. No ascites is seen. IMPRESSION: No acute pathology. No gallstones nor sludge. No biliary obstruction. The pancreas is not well visualized. Electronically signed by: Jennifer Adams On 10/16/2020 01:47:57 AM
[2020-10-16 01:57] LABS: HCG, SERUM QUALITATIVE NEGATIVE (NEGATIVE)
[2020-10-16 01:58] LABS: ALBUMIN 3.7 GM/DL (3.2-5.2); ALT/SGPT 17 U/L (12-78); BILIRUBIN,DIRECT 0.2 MG/DL (0.0-0.2); BILIRUBIN,TOTAL 0.7 MG/DL (0.2-1.0); BLOOD UREA NITROGEN 12 MG/DL (7-18); CALCIUM LEVEL 9.1 MG/DL (8.5-10.1); CARBON DIOXIDE LEVEL 28 MEQ/L (21-32); CHLORIDE LEVEL 107 MEQ/L (98-107); GLOMERULAR FILTRATION RATE > 60.0 (>60); GLUCOSE, FASTING 88 MG/DL (70-100); LIPASE 138 U/L (73-393); POTASSIUM SERUM 4.1 MEQ/L (3.5-5.1); SODIUM LEVEL 141 MEQ/L (136-145); TOTAL PROTEIN 6.4 GM/DL (6.4-8.2)
--- NOTE | 2020-10-16 02:13 | REPVR ---
PROCEDURE INFORMATION: Exam: XR Chest, 2 Views Exam date and time: 10/16/20 (1:34am) Age: 30 years old Clinical indication: Epigastric pain TECHNIQUE: Imaging protocol: XR of the chest Views: 2 views COMPARISON: Chest films of 08/06/17 FINDINGS: Lungs: Unremarkable. No consolidation. Pleural space: Unremarkable. No pleural effusions. No pneumothorax. Heart/Mediastinum: Unremarkable. No cardiomegaly. Bones/joints: Unremarkable. IMPRESSION: No acute findings. The lung giles remain clear. Electronically signed by: Jennifer Adams On 10/16/2020 02:13:45 AM
[2020-10-16] MEDS ORDERED: diphenhydrAMINE 50MG/ML VIAL (J1200) IV STA (02:20)
[2020-10-16] MEDS ORDERED: PROMETHAZINE INJ 25 MG/ML VIAL (J2550) IV ONE (02:30)
[2020-10-16] MEDS ORDERED: MORPHINE 4 MG/ML 1ML VIAL/SYRINGE (J2270) IV ONE (02:30)
[2020-10-16] MEDS: OXYCODONE/APAP 5MG/325MG(BULK FOR ED) 1 TABLET PO ONE ×2 (03:00→03:15)
[2020-10-16] MEDS ORDERED: ONDA4TAB6 PO (03:01)
[2020-10-16 03:18] VITALS: BP 122/88
== END 2020-10-16 03:24 | disposition home or self-care (01) ==
LOC: M ED 23:52
DX: K80.50 Calculus of bile duct without cholangitis or cholecystitis without obstruction (principal); Z79.899 Other long term (current) drug therapy; Z87.891 Personal history of nicotine dependence
CPT/HCPCS: 71046; 76705; 80048; 80076; 81001; 83690; 84703; 85025; 96361; 96374; 96375; 99284; J1200; J1885; J2270

== ENCOUNTER → 2020-10-26 | Outpatient (CLI) | payer OTHER ==
[~2020-10-26] MED LIST changes: +LATU20TA; +ONDA4TAB6 PO
--- NOTE | 2020-10-26 12:47 | REP ---
INDICATION: RUQ ABD PAIN. COMPARISON: Right upper quadrant sonography October 16, 2020.. TECHNIQUE/RADIOTRACER AND DOSE: 6.6 mCi of Technetium-99m mebrofenin was injected and sequential anterior images are acquired. 65 minutes after the mebrofenin injection, the patient consumed 8 ounces Ensure and an additional 60 minutes of imaging was acquired. Regions of interest are plotted around the gallbladder. FINDINGS: The initial hepatocellular parenchymal uptake phase is normal and homogeneous. Intra- and extra-hepatic bile ducts are labeled by the 10-minute image. The gallbladder is first labeled on the 10-minute image. There is normal washout from the liver parenchyma into the gallbladder and small intestine on subsequent images. The gallbladder ejection fraction is 87%. Values greater than 35% are considered normal with this technique. IMPRESSION: Normal hepatobiliary scan and normal gallbladder ejection fraction. <Electronically signed by Yon Parker > 10/26/20 [id number]
== END ==
LOC: M RAD 08:54
PROVIDERS: ATTEND Nurse Practitioner Family
DX: R10.11 Right upper quadrant pain (principal)
CPT/HCPCS: 78227; A9537

== ENCOUNTER 2020-12-19 05:11 | Inpatient (IN) | payer OTHER ==
[~2020-12-19] VITALS: Ht 157.5 cm; Wt 75.6 kg
[~2020-12-19 05:11] MED LIST changes: +GABA-282 PO; -GABA-843 PO; -LATU20TA; +LATU20TA PO; +METH-1164 PO; -METH1TAB40 PO
--- OUTSIDE RECORDS SUMMARY | 2020-12-19 05:21 | CCD ---
Author Author [facility] Organization [facility] Address Unknown Phone Unavailable Care Team Providers Care Blasting Machine Operator Name Role Phone SYMENOW, G CHRISTOPHER PA Unavailable Unavailable SYMENOW, G CHRISTOPHER PA Unavailable Unavailable SYMENOW, G CHRISTOPHER PA Unavailable Unavailable SYMENOW, G CHRISTOPHER PA Unavailable Unavailable SYMENOW, G CHRISTOPHER PA Unavailable Unavailable SYMENOW, G CHRISTOPHER PA Unavailable Unavailable SYMENOW, G CHRISTOPHER PA Unavailable Unavailable SYMENOW, G CHRISTOPHER PA Unavailable Unavailable SYMENOW, G CHRISTOPHER PA Unavailable Unavailable SYMENOW, G CHRISTOPHER PA Unavailable Unavailable SYMENOW, G CHRISTOPHER PA Unavailable Unavailable SYMENOW, G CHRISTOPHER PA Unavailable Unavailable SYMENOW, G CHRISTOPHER PA Unavailable Unavailable SYMENOW, G CHRISTOPHER PA Unavailable Unavailable SYMENOW, G CHRISTOPHER PA Unavailable Unavailable SYMENOW, G CHRISTOPHER PA Unavailable Unavailable SYMENOW, G CHRISTOPHER PA Unavailable Unavailable ORAArelis PA Unavailable Unavailable ORAArelis PA Unavailable Unavailable ORAArelis PA Unavailable Unavailable ORAArelis PA Unavailable Unavailable ORAArelis PA Unavailable Unavailable ORAArelis PA Unavailable Unavailable ORAArelis PA Unavailable Unavailable ORAArelis PA Unavailable Unavailable ORAArelis PA Unavailable Unavailable ORAArelis PA Unavailable Unavailable ORAArelis PA Unavailable Unavailable ORAArelis PA Unavailable Unavailable ORA, L JUSTIN PA Unavailable Unavailable ORA, L JUSTIN PA Unavailable Unavailable ORA, L JUSTIN PA Unavailable Unavailable ORA, L JUSTIN PA Unavailable Unavailable ORA, L JUSTIN PA Unavailable Unavailable ORA, L JUSTIN PA Unavailable Unavailable ORA, L JUSTIN PA Unavailable Unavailable Sewell, W Gilbert RPA-C Unavailable Unavailable Sewell, W Gilbert RPA-C Unavailable Unavailable Sewell, W Gilbert RPA-C Unavailable Unavailable Sewell, W Gilbert RPA-C Unavailable Unavailable Sewell, W Gilbert RPA-C Unavailable Unavailable Sewell, W Gilbert RPA-C Unavailable Unavailable Sewell, W Gilbert RPA-C Unavailable Unavailable Sewell, W Gilbert RPA-C Unavailable Unavailable Sewell, W Gilbert RPA-C Unavailable Unavailable Sewell, W Gilbert RPA-C Unavailable Unavailable Sewell, W Gilbert RPA-C Unavailable Unavailable Sewell, W Gilbert RPA-C Unavailable Unavailable Sewell, W Gilbert RPA-C Unavailable Unavailable Sewell, W Gilbert RPA-C Unavailable Unavailable Sewell, W Gilbert RPA-C Unavailable Unavailable Sweell, W Gilbert RPA-C Unavailable Unavailable Juan Luis LAGUNA MD Unavailable Unavailable Juan Luis LAGUNA MD Unavailable Unavailable Juan Luis LAGUNA MD Unavailable Unavailable Juan Luis LAGUNA MD Unavailable Unavailable Juan Luis LAGUNA MD Unavailable Unavailable Juan Luis LAGUNA MD Unavailable Unavailable Juan Luis LAGUNA MD Unavailable Unavailable Juan Luis LAGUNA MD Unavailable Unavailable Juan Luis LAGUNA MD Unavailable Unavailable Juan Luis LAGUNA MD Unavailable Unavailable Juan Luis LAGUNA MD Unavailable Unavailable Juan Luis LAGUNA MD Unavailable Unavailable Juan Luis LAGUNA MD Unavailable Unavailable Juan Luis LAGUNA MD Unavailable Unavailable Juan Luis LAGUNA MD Unavailable Unavailable Juan Luis LAGUNA MD Unavailable Unavailable Juan Luis LAGUNA MD Unavailable Unavailable Juan Luis LAGUNA MD Unavailable Unavailable Juan Luis LAGUNA MD Unavailable Unavailable Juan Luis LAGUNA MD Unavailable Unavailable Juan Luis LAGUNA MD Unavailable Unavailable Juan Luis LAGUNA MD Unavailable Unavailable Juan Luis LAGUNA MD Unavailable Unavailable Juan Luis LAGUNA MD Unavailable Unavailable Juan Luis LAGUNA MD Unavailable Unavailable Juan Luis LAGUNA MD Unavailable Unavailable Juan Luis LAGUNA MD Unavailable Unavailable Juan Luis LAGUNA MD Unavailable Unavailable Juan Luis LAGUNA MD Unavailable Unavailable Juan Luis LAGUNA MD Unavailable Unavailable Juan Luis LAGUNA MD Unavailable Unavailable Juan Luis LAGUNA MD Unavailable Unavailable Juan Luis LAGUNA MD Unavailable Unavailable Juan Luis LAGUNA MD Unavailable Unavailable Juan Luis LAGUNA MD Unavailable Unavailable Juan Luis LAGUNA MD Unavailable Unavailable Juan Luis LAGUNA MD Unavailable Unavailable Juan Luis LAGUNA MD Unavailable Unavailable Juan Luis LAGUNA MD Unavailable Unavailable Juan Luis LAGUNA MD Unavailable Unavailable Juan Luis LAGUNA MD Unavailable Unavailable Juan Luis LAGUNA MD Unavailable Unavailable Juan Luis LAGUNA MD Unavailable Unavailable Juan Luis LAGUNA MD Unavailable Unavailable Juan Luis LAGUNA MD Unavailable Unavailable Juan Luis LAGUNA MD Unavailable Unavailable Juan Luis LAGUNA MD Unavailable Unavailable Juan Luis LAGUNA MD Unavailable Unavailable Juan Luis LAGUNA MD Unavailable Unavailable Juan Luis LAGUNA MD Unavailable Unavailable Juan Luis LAGUNA MD Unavailable Unavailable Juan Luis LAGUNA MD Unavailable Unavailable Juan Luis LAGUNA MD Unavailable Unavailable Juan Luis LAGUNA MD Unavailable Unavailable Juan Luis LAGUNA MD Unavailable Unavailable Juan Luis LAGUNA MD Unavailable Unavailable Juan Luis LAGUNA MD Unavailable Unavailable Juan Luis LAGUNA MD Unavailable Unavailable Juan Luis LAGUNA MD Unavailable Unavailable Juan Luis LAGUNA MD Unavailable Unavailable Juan Luis LAGUNA MD Unavailable Unavailable Juan Luis LAGUNA MD Unavailable Unavailable Juan Luis LAGUNA MD Unavailable Unavailable Juan Luis LAGUNA MD Unavailable Unavailable Juan Luis LAGUNA MD Unavailable Unavailable Juan Luis LAGUNA MD Unavailable Unavailable Juan Luis LAGUNA MD Unavailable Unavailable Juan Luis LAGUNA MD Unavailable Unavailable Juan Luis LAGUNA MD Unavailable Unavailable Juan Luis LAGUNA MD Unavailable Unavailable Juan Luis LAGUNA MD Unavailable Unavailable Juan Luis LAGUNA MD Unavailable Unavailable Juan Luis LAGUNA MD Unavailable Unavailable Juan Luis LAGUNA MD Unavailable Unavailable Juan Luis LAGUNA MD Unavailable Unavailable Juan Luis LAGUNA MD Unavailable Unavailable Juan Luis LAGUNA MD Unavailable Unavailable Juan Luis LAGUNA MD Unavailable Unavailable Juan Luis LAGUNA MD Unavailable Unavailable Juan Luis LAGUNA MD Unavailable Unavailable Juan Luis LAGUNA MD Unavailable Unavailable Juan Luis LAGUNA MD Unavailable Unavailable Juan Luis LAGUNA MD Unavailable Unavailable Juan Luis LAGUNA MD Unavailable Unavailable Juan Luis LAGUNA MD Unavailable Unavailable Juan Luis LAGUNA MD Unavailable Unavailable Juan Luis LAGUNA MD Unavailable Unavailable Juan Luis LAGUNA MD Unavailable Unavailable Juan Luis LAGUNA MD Unavailable Unavailable Juan Luis LAGUNA MD Unavailable Unavailable Juan Luis LAGUNA MD Unavailable Unavailable Juan Luis LAGUNA MD Unavailable Unavailable Juan Luis LAGUNA MD Unavailable Unavailable Juan Luis LAGUNA MD Unavailable Unavailable Juan Luis LAGUNA MD Unavailable Unavailable Juan Luis LAGUNA MD Unavailable Unavailable Juan Luis LAGUNA MD Unavailable Unavailable CHEPAK, ILONA Unavailable Unavailable Bella XIE PA Unavailable Unavailable TONTARSKI, G ALICIA PA Unavailable Unavailable TONTARSKANIKA, G ALICIA PA Unavailable Unavailable TONTARSKANIKA, G ALICIA PA Unavailable Unavailable TONTARSKANIKA, G ALICIA PA Unavailable Unavailable TONTARSKANIKA, G ALICIA PA Unavailable Unavailable TONTARSKANIKA, G ALICIA PA Unavailable Unavailable TONTARSKANIKA, G ALICIA PA Unavailable Unavailable TONTARSKANIKA, G ALICIA PA Unavailable Unavailable TONTARSKANIKA, G ALICIA PA Unavailable Unavailable TONTARSKANIKA, G ALICIA PA Unavailable Unavailable TONTARSKANIKA, G ALICIA PA Unavailable Unavailable TONTARSKANIKA, G ALICIA PA Unavailable Unavailable TONTARSKANIKA, G ALICIA PA Unavailable Unavailable TONTARSKANIKA, G ALICIA PA Unavailable Unavailable TONTARSKANIKA, G ALICIA PA Unavailable Unavailable TONTARSKANIKA, G ALICIA PA Unavailable Unavailable TONTARSKANIKA, G ALICIA PA Unavailable Unavailable TONTARSKANIKA, G ALICIA PA Unavailable Unavailable TONTARSKANIKA, G ALICIA PA Unavailable Unavailable TONTARSKANIKA, G ALICIA PA Unavailable Unavailable TONTARSKANIKA, G ALICIA PA Unavailable Unavailable TONTARSKANIKA, G ALICIA PA Unavailable Unavailable TONTARSKANIKA, G ALICIA PA Unavailable Unavailable TONTARSKANIKA, G ALICIA PA Unavailable Unavailable TONTARSKANIKA, G ALICIA PA Unavailable Unavailable TONTARSKANIKA, G ALICIA PA Unavailable Unavailable TONTARSKANIKA, G ALICIA PA Unavailable Unavailable TONTARSKANIKA, G ALICIA PA Unavailable Unavailable TONTARSKANIKA, G ALICIA PA Unavailable Unavailable TONTARSKANIKA, G ALICIA PA Unavailable Unavailable TONTARSKANIKA, G ALICIA PA Unavailable Unavailable TONTARSKANIKA, G ALICIA PA Unavailable Unavailable TONTARSKANIKA, G ALICIA PA Unavailable Unavailable TONTARSKANIKA, G ALICIA PA Unavailable Unavailable TONTARSKANIKA, G ALICIA PA Unavailable Unavailable TONTARSKANIKA, G ALICIA PA Unavailable Unavailable TONTARSKANIKA, G ALICIA PA Unavailable Unavailable TONTARSKANIKA, G ALICIA PA Unavailable Unavailable TONTARSKANIKA, G ALICIA PA Unavailable Unavailable TONTARSKANIKA, G ALICIA PA Unavailable Unavailable TONTARSKANIKA, G ALICIA PA Unavailable Unavailable TONTARSKANIKA, G ALICIA PA Unavailable Unavailable TONTARSKI, G ALICIA PA Unavailable Unavailable TONTARSKI, G ALCIIA PA Unavailable Unavailable TONTARSKI, G ALICIA PA Unavailable Unavailable TONTARSKI, G ALICIA PA Unavailable Unavailable TONTARSKI, G ALICIA PA Unavailable Unavailable Daria, A Minerva OUTSIDE ENERGY SALES REPRESENTATIVES Unavailable Unavailable Daria, A Minerva OUTSIDE ENERGY SALES REPRESENTATIVES Unavailable Unavailable Daria, A Minerva OUTSIDE ENERGY SALES REPRESENTATIVES Unavailable Unavailable Daria, A Minerva OUTSIDE ENERGY SALES REPRESENTATIVES Unavailable Unavailable Daria, A Minerva OUTSIDE ENERGY SALES REPRESENTATIVES Unavailable Unavailable Daria, A Minerva OUTSIDE ENERGY SALES REPRESENTATIVES Unavailable Unavailable Daria, A Minerva OUTSIDE ENERGY SALES REPRESENTATIVES Unavailable Unavailable Daria, A Minerva OUTSIDE ENERGY SALES REPRESENTATIVES Unavailable Unavailable Daria, A Minerva OUTSIDE ENERGY SALES REPRESENTATIVES Unavailable Unavailable Daria, A Minerva OUTSIDE ENERGY SALES REPRESENTATIVES Unavailable Unavailable Daria, A Minerva OUTSIDE ENERGY SALES REPRESENTATIVES Unavailable Unavailable Daria, A Minerva OUTSIDE ENERGY SALES REPRESENTATIVES Unavailable Unavailable Daria, A Minerva OUTSIDE ENERGY SALES REPRESENTATIVES Unavailable Unavailable Daria, A Minerva OUTSIDE ENERGY SALES REPRESENTATIVES Unavailable Unavailable Daria, A Minerva OUTSIDE ENERGY SALES REPRESENTATIVES Unavailable Unavailable Daria, A Minerva OUTSIDE ENERGY SALES REPRESENTATIVES Unavailable Unavailable Daria, A Minerva OUTSIDE ENERGY SALES REPRESENTATIVES Unavailable Unavailable Daria, A Minerva OUTSIDE ENERGY SALES REPRESENTATIVES Unavailable Unavailable Daria, A Minerva OUTSIDE ENERGY SALES REPRESENTATIVES Unavailable Unavailable Daria, A Minerva OUTSIDE ENERGY SALES REPRESENTATIVES Unavailable Unavailable Daria, A Minerva OUTSIDE ENERGY SALES REPRESENTATIVES Unavailable Unavailable Daria, A Minerva OUTSIDE ENERGY SALES REPRESENTATIVES Unavailable Unavailable Daria, A Minerva OUTSIDE ENERGY SALES REPRESENTATIVES Unavailable Unavailable Daria, A Minerva OUTSIDE ENERGY SALES REPRESENTATIVES Unavailable Unavailable Daria, A Minerva OUTSIDE ENERGY SALES REPRESENTATIVES Unavailable Unavailable Daria, A Minerva OUTSIDE ENERGY SALES REPRESENTATIVES Unavailable Unavailable Daria, A Minerva OUTSIDE ENERGY SALES REPRESENTATIVES Unavailable Unavailable Daria, A Minerva OUTSIDE ENERGY SALES REPRESENTATIVES Unavailable Unavailable Daria, A Minerva OUTSIDE ENERGY SALES REPRESENTATIVES Unavailable Unavailable Daria, A Minerva OUTSIDE ENERGY SALES REPRESENTATIVES Unavailable Unavailable Daria, A [place]erva OUTSIDE ENERGY SALES REPRESENTATIVES Unavailable Unavailable Daria, A [place]erv[place] OUTSIDE ENERGY SALES REPRESENTATIVES Unavailable Unavailable Daria, A Minerva OUTSIDE ENERGY SALES REPRESENTATIVES Unavailable Unavailable Daria, A [place]erva OUTSIDE ENERGY SALES REPRESENTATIVES Unavailable Unavailable Daria, A [place]erva OUTSIDE ENERGY SALES REPRESENTATIVES Unavailable Unavailable Daria, A Minerva OUTSIDE ENERGY SALES REPRESENTATIVES Unavailable Unavailable Darai, A Minerva OUTSIDE ENERGY SALES REPRESENTATIVES Unavailable Unavailable Daria, A Minerva OUTSIDE ENERGY SALES REPRESENTATIVES Unavailable Unavailable Daria, A Minerva OUTSIDE ENERGY SALES REPRESENTATIVES Unavailable Unavailable Daria, A Minerva OUTSIDE ENERGY SALES REPRESENTATIVES Unavailable Unavailable Daria, A Minerva OUTSIDE ENERGY SALES REPRESENTATIVES Unavailable Unavailable Daria, A Minerva OUTSIDE ENERGY SALES REPRESENTATIVES Unavailable Unavailable Daria, A [place]erva OUTSIDE ENERGY SALES REPRESENTATIVES Unavailable Unavailable Daria, A [place]erva OUTSIDE ENERGY SALES REPRESENTATIVES Unavailable Unavailable TIANA, GENE CHAD PA Unavailable Unavailable TIANA, GENE CHAD PA Unavailable Unavailable TIANA, GENE CHAD PA Unavailable Unavailable TIANA, GENE CHAD PA Unavailable Unavailable TIANA, GENE CHAD PA Unavailable Unavailable TIANA, GENE CHAD PA Unavailable Unavailable TIANA, GENE CHAD PA Unavailable Unavailable TIANA, GENE CHAD PA Unavailable Unavailable TIANA, GENE CHAD PA Unavailable Unavailable TIANA, GENE CHAD PA Unavailable Unavailable TIANA, GENE CHAD PA Unavailable Unavailable TIANA, GENE CHAD PA Unavailable Unavailable TIANA, GENE CHAD PA Unavailable Unavailable TIANA, GENE CHAD PA Unavailable Unavailable TIANA, GENE CHAD PA Unavailable Unavailable TIANA, GENE CHAD PA Unavailable Unavailable TIANA, GENE CHAD PA Unavailable Unavailable TIANA, GENE CHAD PA Unavailable Unavailable TIANA, GENE CHAD PA Unavailable Unavailable TIANA, GENE CHAD PA Unavailable Unavailable TIANA, GENE CHAD PA Unavailable Unavailable MIRTHA BROWN MD Unavailable Unavailable MIRTHA BROWN MD Unavailable Unavailable MIRTHA BROWN MD Unavailable Unavailable MIRTHA BROWN MD Unavailable Unavailable MIRTHA BROWN MD Unavailable Unavailable MIRTHA BROWN MD Unavailable Unavailable MIRTHA BROWN MD Unavailable Unavailable MIRTHA BROWN MD Unavailable Unavailable MIRTHA BROWN MD Unavailable Unavailable Union, Abbey RPA-C Unavailable Unavailable Union, Abbey RPA-C Unavailable Unavailable Union, Abbey RPA-C Unavailable Unavailable Union, Abbey RPA-C Unavailable Unavailable Union, Abbey RPA-C Unavailable Unavailable Union, Abbey RPA-C Unavailable Unavailable Union, Abbey RPA-C Unavailable Unavailable Union, Abbey RPA-C Unavailable Unavailable Union, Abbey RPA-C Unavailable Unavailable Union, Abbey RPA-C Unavailable Unavailable Union, Abbey RPA-C Unavailable Unavailable UnionAbbey castorena RPA-C Unavailable Unavailable UnionAbbey RPA-C Unavailable Unavailable Abbey Covington RPA-C Unavailable Unavailable Union, Abbey RPA-C Unavailable Unavailable INOCENCIO DIAZ Unavailable Unavailable BLAINE CHOI Unavailable Unavailable TURRIN, RYAN Unavailable Unavailable TURRIN, RYAN Unavailable Unavailable TURRIN, RYAN Unavailable Unavailable TURRIN, RYAN Unavailable Unavailable TONTARSKI, G ALICIA PA Unavailable Unavailable TONTARSKI, G ALICIA PA Unavailable Unavailable TONTARSKI, G ALICIA PA Unavailable Unavailable TONTARSKI, G ALICIA PA Unavailable Unavailable TONTARSKI, G ALICIA PA Unavailable Unavailable TONTARSKI, G ALICIA PA Unavailable Unavailable TONTARSKI, G ALICIA PA Unavailable Unavailable TONTARSKI, G ALICIA PA Unavailable Unavailable TONTARSKI, G ALICIA PA Unavailable Unavailable TONTARSKI, G ALICIA PA Unavailable Unavailable TONTARSKI, G ALICIA PA Unavailable Unavailable TONTARSKI, G ALICIA PA Unavailable Unavailable TONTARSKI, G ALICIA PA Unavailable Unavailable TONTARSKI, G ALICIA PA Unavailable Unavailable TONTARSKI, G ALICIA PA Unavailable Unavailable TONTARSKI, G ALICIA PA Unavailable Unavailable TONTARSKI, G ALICIA PA Unavailable Unavailable TONTARSKI, G ALICIA PA Unavailable Unavailable TONTARSKI, G ALICIA PA Unavailable Unavailable TONTARSKI, G ALICIA PA Unavailable Unavailable TONTARSKI, G ALICIA PA Unavailable Unavailable TONTARSKI, G ALICIA PA Unavailable Unavailable TONTARSKI, G ALICIA PA Unavailable Unavailable TONTARSKI, G ALICIA PA Unavailable Unavailable TONTARSKI, G ALICIA PA Unavailable Unavailable TONTARSKI, G ALICIA PA Unavailable Unavailable TONTARSKI, G ALICIA PA Unavailable Unavailable TONTARSKI, G ALICIA PA Unavailable Unavailable TONTARSKI, G ALICIA PA Unavailable Unavailable TONTARSKI, G ALICIA PA Unavailable Unavailable TONTARSKI, G ALICIA PA Unavailable Unavailable TONTARSKI, G ALICIA PA Unavailable Unavailable TONTARSKI, G ALICIA PA Unavailable Unavailable TONTARSKI, G ALICIA PA Unavailable Unavailable TONTARSKI, G ALICIA PA Unavailable Unavailable TONTARSKI, G ALICIA PA Unavailable Unavailable TONTARSKI, G ALICIA PA Unavailable Unavailable TONTARSKI, G ALICIA PA Unavailable Unavailable TONTARSKI, G ALICIA PA Unavailable Unavailable TONTARSKI, G ALICIA PA Unavailable Unavailable TONTARSKI, G ALICIA PA Unavailable Unavailable TONTARSKI, G ALICIA PA Unavailable Unavailable TONTARSKI, G ALICIA PA Unavailable Unavailable TONTARSKI, G LAICIA PA Unavailable Unavailable TONTARSKI, G ALICIA PA Unavailable Unavailable TONTARSKI, G ALICIA PA Unavailable Unavailable TONTARSKI, G ALICIA PA Unavailable Unavailable TONTARSKI, G ALICIA PA Unavailable Unavailable ELLEN, GEORGIA WELSH Unavailable Unavailable ELLEN, GEORGIA WELSH Unavailable Unavailable ELLEN, GEORGIA WELSH Unavailable Unavailable ELLEN, GEORGIA WELSH Unavailable Unavailable ELLEN, GEORGIA WELSH Unavailable Unavailable ELLEN, GEORGIA WELSH Unavailable Unavailable ELLEN, GEORGIA WELSH Unavailable Unavailable ELLEN, GEORGIA WELSH Unavailable Unavailable ELLEN, GEORGIA WELSH Unavailable Unavailable ELLEN, GEORGIA WELSH Unavailable Unavailable ELLEN, GEORGIA WELSH Unavailable Unavailable ELLEN, GEORGIA WELSH Unavailable Unavailable ELLEN, GEORGIA WELSH Unavailable Unavailable ELLEN, GEORGIA WELSH Unavailable Unavailable ELLEN, GEORGIA WELSH Unavailable Unavailable ELLEN, GEORGIA WELSH Unavailable Unavailable ELLEN, GEORGIA WELSH Unavailable Unavailable ELLEN, GEORGIA WELSH Unavailable Unavailable ELLEN, GEORGIA WELSH Unavailable Unavailable ELLEN, GEORGIA WELSH Unavailable Unavailable ELLEN, GEORGIA WELSH Unavailable Unavailable ELLEN, GEORGIA WELSH Unavailable Unavailable ELLEN, GEORGIA WELSH Unavailable Unavailable ELLEN, GEORGIA WELSH Unavailable Unavailable ELLEN, GEORGIA WELSH Unavailable Unavailable ELLEN, GEORGIA WELSH Unavailable Unavailable ELLEN, GEORGIA WELSH Unavailable Unavailable ELLEN, GEORGIA WELSH Unavailable Unavailable ELLEN, GEORGIA WELSH Unavailable Unavailable ELLEN, GEORGIA WELSH Unavailable Unavailable ELLEN, GEORGIA WELSH Unavailable Unavailable ELLEN, GEORGIA WELSH Unavailable Unavailable ELLEN, GEORGIA WELSH Unavailable Unavailable ELLEN, GEORGIA WELSH Unavailable Unavailable ELLEN, GEORGIA WELSH Unavailable Unavailable ELLEN, GEORGIA WELSH Unavailable Unavailable ELLEN, GEORGIA WELSH Unavailable Unavailable ELLEN, GEORGIA WELSH Unavailable Unavailable ELLEN, GEORGIA WELSH Unavailable Unavailable ELLEN, GEORGIA WELSH Unavailable Unavailable ELLEN, GEORGIA WELSH Unavailable Unavailable ELLEN, GEORGIA WELSH Unavailable Unavailable ELLEN, GEORGIA WELSH Unavailable Unavailable ELLEN, GEORGIA WELSH Unavailable Unavailable ELLEN, GEORGIA WELSH Unavailable Unavailable ELLEN, GEORGIA WELSH Unavailable Unavailable ELLEN, HO MD Unavailable Unavailable ELLEN, OH MD Unavailable Unavailable ELLEN, HO MD Unavailable Unavailable ELLEN, HO MD Unavailable Unavailable ELLEN, HO MD Unavailable Unavailable ELLEN, HO MD Unavailable Unavailable ELLEN, HO MD Unavailable Unavailable ELLEN, HO MD Unavailable Unavailable CORBINE, S YOVANI Unavailable Unavailable CORBINE, S YOVANI Unavailable Unavailable Elmira Elie, L Mary DO Unavailable Unavailable Elmira Elie, L Mary DO Unavailable Unavailable Elmira Elie, L Mary DO Unavailable Unavailable Elmira Elie, L Mary DO Unavailable Unavailable Elmira Elie, L Mary DO Unavailable Unavailable Elmira Elie, L Mary DO Unavailable Unavailable Cizenski, Jennalee Unavailable Unavailable Cizenski, Jennalee Unavailable Unavailable Cizenski, Jennalee Unavailable Unavailable VENERUS, Juan Luis VILLASENOR MD Unavailable Unavailable VENERUS, Juan Luis VILLASENOR MD Unavailable Unavailable VENERUS, Juan Luis VILLASENOR MD Unavailable Unavailable VENERUS, Juan Luis VILLASENOR MD Unavailable Unavailable VENERUS, Juan Luis VILLASENOR MD Unavailable Unavailable VENERUS, J SMITH WELSH Unavailable Unavailable VENERUS, J SMITH WELSH Unavailable Unavailable VENERUS, J SMITH WELSH Unavailable Unavailable VENERUS, J SMITH WELSH Unavailable Unavailable Re-disclosure Warning The records that you are about to access may contain information from federally-assisted alcohol or drug abuse programs. If such information is present, then the following federally mandated warning applies: This information has been disclosed to you from records protected by federal confidentiality rules (42 CFR part 2). The federal rules prohibit you from making any further disclosure of this information unless further disclosure is expressly permitted by the written consent of the person to whom it pertains or as otherwise permitted by 42 CFR part 2. A general authorization for the release of medical or other information is NOT sufficient for this purpose. The Federal rules restrict any use of the information to criminally investigate or prosecute any alcohol or drug abuse patient.The records that you are about to access may contain highly sensitive health information, the redisclosure of which is protected by Article 27-F of the [facility] Public Health law. If you continue you may have access to information: Regarding HIV / AIDS; Provided by facilities licensed or operated by the [facility] Office of Mental Health; or Provided by the [facility] Office for People With Developmental Disabilities. If such information is present, then the following [facility] mandated warning applies: This information has been disclosed to you from confidential records which are protected by state law. State law prohibits you from making any further disclosure of this information without the specific written consent of the person to whom it pertains, or as otherwise permitted by law. Any unauthorized further disclosure in violation of state law may result in a fine or half-way sentence or both. A general authorization for the release of medical or other information is NOT sufficient authorization for further disc losure. Allergies and Adverse Reactions Type Description Substance Reaction Status Data Source(s ) No Known Drug Allergies No Known Drug Allergies [facility] Drug Class NO KNOWN ALLERGIES NO KNOWN ALLERGIES [facility] Family History Family Member Name Family Member Gender Family Member Status Date o f Status Description Data Source(s) Unknown Condition [facility] Unknown Condition [facility] Unknown Unknown Problem [facility] ([facility] Unknown Unknown Problem [facility] ([facility]) Paternal aunt, PGM Unknown Unknown Problem [facility] ([facility] mother Encounters Encounter Providers Location Date Indications Data Source(s ) Outpatient Attender: YOVANI GAUTAM 12/08/2020 08:59:00 AM [facility] Outpatient Attender: GEORGIA HUGHES MD [email or web address] 11/29/2020 07:22:52 AM [facility] Outpatient Attender: YOVANI GAUTAM 11/10/2020 11:00:00 AM [facility] Outpatient Attender: INOCENCIO DIAZ 10/31/2020 11:00:00 AM [facility] Outpatient Attender: Minerva HALL 10/04/2020 10:07 :00 AM [facility] Outpatient Attender: Abbey CURRANCReferrer: Minerva HALL 09/19/2020 10:00:00 AM [facility] Emergency Attender: IMELDA Lynch: [facility] 09/15/2020 10:52:00 PM EST - 09/15/2020 11:55:00 PM [facility] Patient discharged. Outpatient Attender: Abbey Covington RPA-CReferrer: Jayden [id number] 09/13/2020 10:16:00 AM EST - 09/13/2020 10:16:00 AM [facility] Emergency Attender: YULI BAIN PAReferrer : Minerva Huff [facility] EMERGENCY ROOM-ER 09/06/2020 10:12:00 PM EST - 09/07/2020 12:10:00 AM [facility] Patient discharged. Outpatient Attender: Minerva Huff FNPReferrer: Minerva Huff [employer] REPRESENTATIVES 08/30/2020 01:00:00 PM [facility] Outpatient Attender: Minerva Huff [facility] 08/23/2020 02:12 :00 PM [facility] Outpatient Attender: Abbey Covington RPA-CReferrer: ALICIA CHONG 08/17/2020 09:44:00 AM EDT - 08/17/2020 09:44:00 AM [facility] Emergency Attender: SMITH LUCERO MDConsultant: ALICIA CHONG 08/12/2020 09:23:00 PM EDT - 08/12/2020 10:35:00 PM EDT [facility] Patient discharged. Emergency Attender: YULI Tracy PAAttender: JUSTIN PAYAN PAReferrer: ALICIA CHONG 08/02/2020 07:27:00 PM EDT - 08[facility]02[facility]. [facility] Attender: LINDSEY Short er: [facility] MDAttender: Bia KirklandReferrer: [facility] [id number] 06/07/2020 12:0 0:00 AM EDT - 06/07/2020 10:57:00 PM EDT Chest pain, unspecified [facility] Chest pain, unspecified Patient discharged. Emergency Attender: YULI Harrellerrer : ALICIA CHONG EMERGENCY ROOM-ER 05/29/2020 11:05:00 PM EDT - 05/30/2020 02:45:00 AM [facility] Patient discharged. Outpatient Referrer: SHEREEN LAGUNA MD 12/30/2019 11:07:00 AM [facility] Emergency Attender: RYAN WEBSTERConsultant: ALICIA CHONG 11/12/2019 08:51:00 PM [facility] - 11/13/2019 12:27:00 AM [facility] Patient discharged. Emergency Attender: SMITH LUCERO MDConsultant: ALICIA CHONG 11/10/2019 06:10:00 PM [facility] - 11/10/2019 11:20:00 PM [facility] Patient discharged. Emergency Attender: CHAD CHONG EMERGENCY ROOM-ER 03/08/2019 11:22:00 PM EDT - 03/09/2019 01:58:00 AM [facility] Emergency Attender: Gilbert LARIOS EMERGENCY ROOM-ER 0 11/22/2018 07:22:00 PM [facility] - 11/22/2018 09:56:00 PM [facility] Emergency Attender: JUSTIN CHONG EMERGENCY ROOM-ER 07:58:00 PM [facility] - 10/06/2018 11:49:00 PM [facility] Emergency Attender: CHAD CHONG EMERGENCY ROOM-ER 10/01/2018 01:06:00 PM [facility] - 10/01/2018 03:35:00 PM [facility] Emergency Attender: CHAD CHONG EMERGENCY ROOM-ER 08/20/2018 02:36:00 PM ED - 08/20/2018 05:25:00 PM [facility] Medications Medication Brand Name Start Date Product Form Dose Route Admi nistrative Instructions Pharmacy Instructions Status Indications Reaction Description Data Source(s) Trazodone Hydrochloride 100 MG Oral Tablet TRAZODONE HCL 11/11/2020 12:00:00 AM EST tablet 180 TAKE TWO TABLETS BY MOUTH AT BEDTIME ONCE A DAY TAKE TWO TABLETS BY MOUTH AT BEDTIME ONCE A DAY SOLD: 11/23/2020 [facility] 4 mg 10/16/2020 12:00:00 AM EST tablet,disintegrating 1 6 DISSOLVE ONE TABLET ON TONGUE EVERY 6 TO 8 HOURS NEEDED FOR NAUSEA AND VOMITING DISSOLVE ONE TABLET ON TONGUE EVERY 6 TO 8 HOURS NEEDED FOR NAUSEA AND VOMITING SOLD: 10/18/2020 [facility] Trazodone Hydrochloride 100 MG Oral Tablet TRAZODONE HCL 10/04/2020 12:00:00 AM EST tablet 90 TAKE ONE TABLET BY MOUTH AT BEDTIME TAKE ONE TABLET BY MOUTH AT BEDTIME SOLD: 10/18/2020 [facility] 20 mg 10/04/2020 12:00:00 AM EST tablet 30 TAKE ONE TABLET BY MOUTH EVERY DAY TAKE ONE TABLET BY MOUTH EVERY DAY SOLD: 10/18/2020 [facility] Trazodone Hydrochloride 100 MG Oral Tablet TRAZODONE HCL 09/07/2020 12:00:00 AM EST tablet 60 TAKE ONE TO TWO TABLETS BY M OUTH AT BEDTIME NEEDED FOR SLEEP TAKE ONE TO TWO TABLETS BY MOUTH AT BEDTIME NEEDED FOR SLEEP SOLD: 09/08/2020 [facility] Cyclobenzaprine hydrochloride 10 MG Oral Tablet CYCLOBENZAPR INE HCL 08/13/2020 12:00:00 AM EDT tablet 15 TAKE ONE TABLET BY MOUTH EVERY 8 HOURS NEEDED FOR MUSCLE SPASM OR PAIN TAKE ONE TABLET BY MOUTH EVERY 8 HOURS A S NEEDED FOR MUSCLE SPASM OR PAIN SOLD: 08/13/2020 [facility] 250 mg 08/02/2020 12:00:00 AM EDT tablet 4 TAKE ONE TABLET BY MOUTH EVERY DAY TAKE ONE TABLET BY MOUTH EVERY DAY SOLD: 08/03/2020 [facility] 500 mg 06/28/2020 12:00:00 AM EDT tablet 20 TAKE ONE TABLET BY MOUTH EVERY 12 HOURS TAKE ONE TABLET BY MOUTH EVERY 12 HOURS SOLD: 07/03/2020 [facility] 500 mg 06/28/2020 12:00:00 AM EDT tablet 80 TAKE TWO TABLETS BY MOUTH FOUR TIMES A DAY NEEDED FOR PAIN TAKE TWO TABLETS BY MOUTH FOUR TIMES A D AY NEEDED FOR PAIN SOLD: 07/03/2020 [facility] Lurasidone Hydrochloride 40 MG Oral Tablet lurasidone HCl (LATUDA) tablet 40 mg lurasidone HCl (LATUDA) tablet 40 mg 06/08/2020 09:00:00 AM EDT 40 mg Oral active 40 mg, Oral, Rebecca ly Standard, First dose on Sat06/08/20 at 0900, For 30 days
Administer with food.
[facility] Medication administered onsite 1 ML Ketorolac Tromethamine 30 MG/ML Car tridge ketorolac (TORADOL) 30 MG/ML injection 30 mg ketorolac (TORADOL) 30 MG/ML injection 30 mg 0 02:00:00 AM EDT 30 mg Intravenous active 30 m g, Intravenous, Every 6 hours, First dose (after last reorder) on Sat06/08/20 at 0200, For 3 doses [facility] Medication administered onsite Trazodone Hydrochloride 100 MG Oral Tablet trazodone ( DESYREL) tablet 100 mg trazodone (DESYREL) tablet 100 mg 06/07/2020 10:00:00 PM EDT 100 mg Oral active 100 mg, Oral, Nightl y, First dose on Sat06/07/20 at 2200, For 30 days [facility] Medication administered onsite Famotidine 20 MG Oral Tablet famotidine (PEPCID) table t 20 mg famotidine (PEPCID) tablet 20 mg 06/07/2020 09:00:00 PM EDT 20 mg Oral active 20 mg, Oral, 2 Times Daily, First dose on Sat06/07/20 at 2100, For 30 days [facility] Medication administered onsite 2 ML Metoclopramide 5 MG/ML Prefilled Sy ringe metoclopramide (REGLAN) injection 10 mg metoclopramide (REGLAN) injection 10 mg 06/07/2020 08:15:00 PM E DT 10 mg Intravenous completed 10 mg, I ntravenous, Once, Sat06/07/20 at 2014, For 1 dose
Reglan.
[facility] Medication administered onsite sodium chloride 0.9 % bolus 1,000 mL [id number] 06/07/2020 08:15: 00 PM EDT 1000 mL Intravenous completed 1,000 mL , Intravenous, Once, Sat06/07/20 at 2014, For 1 dose [facility] Medication administered onsite 1 ML Ketorolac Tromethamine 30 MG/ML Car tridge ketorolac (TORADOL) 30 MG/ML injection 15 mg ketorolac (TORADOL) 30 MG/ML injection 15 mg 0 08:15:00 PM EDT 15 mg Intravenous completed 15 mg, Intravenous, Once, Sat06/07/20 at 2014, For 1 dose [facility] Medication administered onsite iohexol (OMNIPAQUE) 350 MG/ML contrast injection 100 mL [id number] 06/07/2020 07:00:00 PM EDT 100 mL Given by IV completed 100 mL, Given by IV, 1 TIME IMAGING, Sat06/07/20 at 1900, For 1 dose [facility] Medication administered onsite Aspirin 81 MG Chewable Tablet aspirin chewable tablet 162 mg aspirin chewable tablet 162 mg 06/07/2020 05:00:00 PM EDT 162 mg Oral comp leted 162 mg, Oral, Once, Sat06/07/20 at 170, For 1 dose
Chew tablet before swallowing.
[facility] Medication administered onsite sodium chloride 0.9 % bolus 1,000 mL [id number] 06/07/2020 05:00: 00 PM EDT 1000 mL Intravenous completed 1,000 mL , Intravenous, Once, Sat06/07/20 at 1700, For 1 dose
Bolus Wide Open.
[facility] Medication administered onsite 2 ML Metoclopramide 5 MG/ML Prefilled Sy ringe metoclopramide (REGLAN) injection 10 mg metoclopramide (REGLAN) injection 10 mg 06/07/2020 05:00:00 PM E DT 10 mg Intravenous completed 10 mg, I ntravenous, Once, Sat06/07/20 at 170, For 1 dose [facility] Medication administered onsite Acetaminophen 325 MG Oral Tablet acetaminophen (TYLENO L) tablet 975 mg acetaminophen (TYLENOL) tablet 975 mg 06/07/2020 05:00:00 PM EDT 97 5 mg Oral completed 975 mg, Oral, O nce, Sat06/07/20 at 170, For 1 dose
Maximum daily dose of acetaminophen is 3,000 mg from all sources in 24 hours.
[facility] Medication administered onsite 100 mg 06/02/2020 12:00:00 AM EDT tablet 60 TAKE TWO TABLETS BY MOUTH AT BEDTIME NEEDED TAKE TWO TABLETS BY MOUTH AT BEDTIME NEEDED SOLD: 07/03/2020 [facility] 100 mg 06/02/2020 12:00:00 AM EDT tablet 60 TAKE TWO TABLETS BY MOUTH AT BEDTIME NEEDED TAKE TWO TABLETS BY MOUTH AT BEDTIME NEEDED SOLD: 08/03/2020 [facility] Trazodone Hydrochloride 100 MG Oral Tablet TRAZODONE HCL 06/02/2020 12:00:00 AM EDT tablet 60 TAKE TWO TABLETS BY MOUTH AT BEDTIME NEEDED TAKE TWO TABLETS BY MOUTH AT BEDTIME NEEDED SOLD: 06/03/2020 [facility] 20 mg 05/20/2020 12:00:00 AM EDT tablet 30 TAKE ONE TABLET BY MOUTH EVERY DAY WITH DINNER TIME WITH 350 CALORIE MEAL TAKE ONE TABLET BY MOUTH EVERY DAY WITH DINNER TIME WITH 350 CALORIE MEAL SOLD: 05/25/2020 [facility] Lurasidone Hydrochloride 20 MG Oral Tablet [Latuda] [place] 20 MG Oral Tablet Latuda 20 MG Oral Tablet 05/20/2020 12:00:00 AM EDT 20 mg Oral active Take 20 mg by mouth Daily [facility] 30 mg 05/20/2020 12:00:00 AM EDT capsule,delayed release (DR/EC) 30 TAKE ONE CAPSULE BY MOUTH EVERY DAY TAKE ONE CAPSULE BY MOUTH EVERY DAY SOLD: 05/25/2020 [facility] 20 mg 04/28/2020 12:00:00 AM EDT capsule,delayed release (DR/EC) 30 TAKE ONE CAPSULE BY MOUTH EVERY DAY TAKE ONE CAPSULE BY MOUTH EVERY DAY SOLD: 05/03/2020 [facility] 24 HR Guanfacine 1 MG Extended Release Oral Tablet GUANFACIN E HCL 04/28/2020 12:00:00 AM EDT tablet extended release 24 hr 30 TA KE ONE TABLET BY MOUTH EVERY DAY IN THE AFTERNOON TAKE ONE TABLET BY MOUTH EVERY DAY IN THE AFTERNOON SOLD: 05/03/2020 [facility] 40 mg 04/28/2020 12:00:00 AM EDT tablet 30 TAKE 1 TABLET BY MOUTH AT DINNER TIME WITH 350 CALORIE MEAL TAKE 1 TABLET BY MOUTH AT DINNER TIME WI TH 350 CALORIE MEAL SOLD: 05/03/2020 [facility] Trazodone Hydrochloride 100 MG Oral Tablet TRAZODONE HCL 03/30/2020 12:00:00 AM EDT tablet 60 TAKE TWO TABLETS BY MOUTH AT BEDTIME NEEDED TAKE TWO TABLETS BY MOUTH AT BEDTIME NEEDED SOLD: 05/03/2020 [facility] Trazodone Hydrochloride 100 MG Oral Tablet TRAZODONE HCL 03/30/2020 12:00:00 AM EDT tablet 60 TAKE TWO TABLETS BY MOUTH AT BEDTIME NEEDED TAKE TWO TABLETS BY MOUTH AT BEDTIME NEEDED SOLD: 04/01/2020 [facility] 40 mg 03/30/2020 12:00:00 AM EDT tablet 30 TAKE ONE TABLET BY MOUTH EVERY DAY WITH 350 CALORIE MEAL IN THE EVENING TAKE ONE TABLET BY MOUTH EVERY DAY WITH 350 CALORIE MEAL IN THE EVENING SOLD: 04/01/2020 [facility] 20 mg 03/30/2020 12:00:00 AM EDT capsule,delayed release (DR/EC) 30 TAKE ONE CAPSULE BY MOUTH EVERY DAY TAKE ONE CAPSULE BY MOUTH EVERY DAY SOLD: 04/01/2020 [facility] 24 HR Guanfacine 1 MG Extended Release Oral Tablet GUANFACIN E HCL 03/30/2020 12:00:00 AM EDT tablet extended release 24 hr 30 TA KE ONE TABLET BY MOUTH EVERY DAY IN THE AFTERNOON TAKE ONE TABLET BY MOUTH EVERY DAY IN THE AFTERNOON SOLD: 04/01/2020 [facility] 24 HR Guanfacine 1 MG Extended Release Oral Tablet GUANFACIN E HCL 02/19/2020 12:00:00 AM EDT tablet extended release 24 hr 30 TA KE ONE TABLET BY MOUTH EVERY DAY AFTERNOON TAKE ONE TABLET BY MOUTH EVERY DAY AFTERNOON SOLD: 02/19/2020 [facility] Trazodone Hydrochloride 100 MG Oral Tablet TRAZODONE HCL 02/19/2020 12:00:00 AM EDT tablet 60 TAKE TWO TABLETS BY MOUTH AT BEDTIME NEEDED TAKE TWO TABLETS BY MOUTH AT BEDTIME NEEDED SOLD: 02/19/2020 [facility] 40 mg 02/19/2020 12:00:00 AM EDT tablet 30 TAKE ONE TABLET BY MOUTH EVERY DAY AFTER DINNER TAKE ONE TABLET BY MOUTH EVERY DAY AFTER DINNER SOLD: 02/19/2020 [facility] 0.5 mg 01/20/2020 12:00:00 AM EDT tablet 30 TAKE ONE TABLET BY MOUTH EVERY DAY NEEDED MAXIMUM DAILY DOSE = 1 TAKE ONE TABLET BY MOUTH EVERY DAY NEEDED MAXIMUM DAILY DOSE = 1 SOLD: 01/21/2020 [facility] 20 mg 01/19/2020 12:00:00 AM EDT tablet 30 TAKE ONE TABLET BY MOUTH EVERY EVENING WITH A 350 CALORIE MEAL TAKE ONE TABLET BY MOUTH EVERY EVENING W ITH A 350 CALORIE MEAL SOLD: 01/21/2020 [facility] Trazodone Hydrochloride 100 MG Oral Tablet TRAZODONE HCL 01/19/2020 12:00:00 AM EDT tablet 60 TAKE TWO TABLETS BY MOUTH AT BEDTIME NEEDED TAKE TWO TABLETS BY MOUTH AT BEDTIME NEEDED SOLD: 01/21/2020 [facility] 20 mg 01/19/2020 12:00:00 AM EDT capsule,delayed release (DR/EC) 30 TAKE ONE CAPSULE BY MOUTH EVERY DAY TAKE ONE CAPSULE BY MOUTH EVERY DAY SOLD: 01/21/2020 [facility] 4 mg 01/18/2020 12:00:00 AM EDT tablet 90 TAKE ONE TABLET BY MOUTH THREE TIMES A DAY NEEDED FOR MUSCLE CRAMPS TAKE ONE TABLET BY MOUTH THREE TIMES A DAY NEEDED FOR MUSCLE CRAMPS SOLD: 01/18/2020 [facility] 20 mg 12/21/2019 12:00:00 AM EST tablet 30 TAKE ONE TABLET BY MOUTH EVERY EVENING WITH 350 CALORIE MEAL TAKE ONE TABLET BY MOUTH EVERY EVENING W ITH 350 CALORIE MEAL SOLD: 12/23/2019 [facility] 5 mg 12/02/2019 12:00:00 AM EST tablet, sublingual 30 PLACE 1 TABLET UNDER THE TONGUE EVERY DAY PLACE 1 TABLET UNDER THE TONGUE EVERY DAY SOLD: 12/02/2019 [facility] 20 mg 12/02/2019 12:00:00 AM EST capsule,delayed release (DR/EC) 30 TAKE ONE CAPSULE BY MOUTH EVERY DAY TAKE ONE CAPSULE BY MOUTH EVERY DAY SOLD: 12/02/2019 [facility] 150 mg 12/02/2019 12:00:00 AM EST tablet 30 TAKE ONE TABLET BY MOUTH AT BEDTIME TAKE ONE TABLET BY MOUTH AT BEDTIME SOLD: 12/02/2019 [facility] Trazodone Hydrochloride 100 MG Oral Tablet TRAZODONE HCL 12/02/2019 12:00:00 AM EST tablet 60 TAKE TWO TABLETS BY MOUTH AT BEDTIME NEEDED TAKE TWO TABLETS BY MOUTH AT BEDTIME NEEDED SOLD: 01/01/2020 [facility] Trazodone Hydrochloride 100 MG Oral Tablet TRAZODONE HCL 12/02/2019 12:00:00 AM EST tablet 60 TAKE TWO TABLETS BY MOUTH AT BEDTIME NEEDED TAKE TWO TABLETS BY MOUTH AT BEDTIME NEEDED SOLD: 12/02/2019 [facility] 40 mg 11/13/2019 12:00:00 AM EST tablet,delayed release (DR/EC) 30 TAKE ONE TABLET BY MOUTH EVERY DAY TAKE ONE TABLET BY MOUTH EVERY DAY SOLD: 12/02/2019 [facility] 4 mg 11/13/2019 12:00:00 AM EST tablet 16 TAKE ONE TABLET BY MOUTH FOUR TIMES A DAY NEEDED TAKE ONE TABLET BY MOUTH FOUR TIMES A DAY NEEDED SO LD: 12/02/2019 [facility] 100 mg 11/11/2019 12:00:00 AM EST capsule 6 TAKE ONE CAPSULE BY MOUTH THREE TIMES A DAY TAKE ONE CAPSULE BY MOUTH THREE TIMES A DAY SOLD: 12/02/2019 [facility] 4 mg 11/11/2019 12:00:00 AM EST tablet 6 TAKE ONE TABLET BY MOUTH THREE TIMES A DAY TAKE ONE TABLET BY MOUTH THREE TIMES A DAY SOLD: 12/02/2019 [facility] 150 mg 11/04/2019 12:00:00 AM EST tablet 30 TAKE ONE TABLET BY MOUTH AT BEDTIME TAKE ONE TABLET BY MOUTH AT BEDTIME SOLD: 12/13/2019 [facility] 1 mg 11/04/2019 12:00:00 AM EST tablet 10 TAKE ONE TABLET BY MOUTH EVERY DAY MAXIMUM DAILY DOSE = 1 TAKE ONE TABLET BY MOUTH EVERY DAY MAXIM UM DAILY DOSE = 1 SOLD: 11/04/2019 [facility] 20 mg 10/29/2019 12:00:00 AM EST capsule,delayed release (DR/EC) 30 TAKE ONE CAPSULE BY MOUTH EVERY DAY TAKE ONE CAPSULE BY MOUTH EVERY DAY SOLD: 11/03/2019 [facility] 5 mg 10/29/2019 12:00:00 AM EST tablet, sublingual 30 PLACE 1 TABLET UNDER THE TONGUE ONCE DAILY MAXIMUM DAILY DOSE = [address] 1 TABLET UNDER THE TONGUE ONCE DAILY MAXIMUM DAILY DOSE = 1 TABLET SOLD: 11/03/2019 [facility] 100 mg 09/21/2019 12:00:00 AM EST tablet 60 TAKE TWO TABLETS BY MOUTH AT BEDTIME NEEDED TAKE TWO TABLETS BY MOUTH AT BEDTIME NEEDED SOLD: 10/29/2019 [facility] montelukast 10 MG Oral Tablet MONTELUKAST SODIUM 08/06/2019 12:0 0:00 AM EDT tablet 90 TAKE ONE TABLET BY MOUTH EVERY D AY TAKE ONE TABLET BY MOUTH EVERY DAY SOLD: 10/29/2019 [facility] 25 mg 08/06/2019 12:00:00 AM EDT tablet 30 TAKE ONE TABLET BY MOUTH EVERY DAY TAKE ONE TABLET BY MOUTH EVERY DAY SOLD: 10/29/2019 [facility] 4 mg 07/02/2019 12:00:00 AM EDT tablet 90 TAKE ONE TABLET BY MOUTH THREE TIMES A DAY NEEDED FOR MUSCLE CRAMPS TAKE ONE TABLET BY MOUTH THREE TIMES A DAY NEEDED FOR MUSCLE CRAMPS SOLD: 10/29/2019 [facility] Insurance Providers Payer name Policy type / Coverage type Policy ID Covered constitution party ID Covered constitution party's relationship to honeycutt Policy Honeycutt Plan Information UN COMMUNITY PLAN [facility] [id number] SP [id number] [facility] [id number] S [id number] [facility] MEDICAID [id number] S [id number] [facility] MEDICAID [id number] Karol [id number] [facility](MCAID) O [id number] S [id number] [employer] MEDICAID [id number] S [id number] [employer] MEDICAID [id number] S [id number] UHC COMMUNITY PLAN XIX [id number] 18 [id number] UHC I [id number] Self [id number] UHC I [id number] Self [id number] [employer] COMMUNITY PLAN [id number] [employer] MEDICAID [id number] S [id number] MEDICAID [id number] Self [id number] [facility] Health Maintenance Organization (HMO) [id number] Self [id number] UNHC AMERICHOICE XIX -HMO [id number] 18 [id number] UNHC COMMUNITY PLAN XIX [id number] 18 [id number] UNHC COMMUNITY PLAN MCDHMO [id number] SP [id number] UNHC COMMUNITY PLAN MCDHMO [id number] SP [id number] [facility] Maintenance Organization (HMO) [id number] Self [id number] [employer] [facility] [employer] Organization (HMO) [id number] Self [id number] UHC COMMUNITY PLAN [id number] MEDICAID [id number] SP [id number] MEDICAID [id number] S [id number] UNHC COMMUNITY PLAN MCDHMO [id number] SP [id number] UHC I [id number] Self [id number] [employer] COMMUNITY PLAN MCDHMO [id number] SP [id number] [employer] [facility] [employer] Maintenance Organization (HMO) [id number] Self [id number] UHC I [id number] Self [id number] UHC I [id number] Self [id number] [employer] [facility] [employer] Maintenance Organization (HMO) [id number] Self [id number] [employer] [facility] [employer] [facility] Maintenance Organization (HMO) Self BLUE CROSS APONTE PLAN [id number] SP [id number] MEDICAID [id number] SP [id number] Problems, Conditions, and Diagnoses Code Display Name Description Problem Type Effective Dates Data Source(s) F50.2 Bulimia nervosa Bulimia nervosa Diagnosis 11/29/2020 07:2 2:52 AM [facility] F41.9 Anxiety disorder, unspecified Anxiety disorder, unspec ified Diagnosis 11/29/2020 07:22:52 AM [facility] M51.9 Unspecified thoracic, 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 Unspecified thoracic, thoracolumbar and Diagnosis 11/29/2020 07:22:52 AM [facility] R91.1 Solitary pulmonary nodule Solitary pulmonary nodule Di agnosis 11/29/2020 07:22:52 AM [facility] G62.9 Polyneuropathy, unspecified Polyneuropathy, unspecifie d Diagnosis 11/29/2020 07:22:52 AM [facility] Z86.69 Personal history of other di seases of the nervous system and sense organs Personal history of other diseases of th Diagnosis 021 07:22:52 AM [facility] M54.40 Lumbago with sciatica, unspecified side Lumbago with sciatica, unspecified side Diagnosis 11/29/2020 07:22:52 AM [facility] F31.9 Bipolar disorder, unspecified Bipolar disorder, unspec ified Diagnosis 11/29/2020 07:22:52 AM [facility] F41.9 Anxiety disorder, unspecified ANXIETY DISORDER, UNSPEC IFIED Diagnosis 11/10/2020 11:00:00 AM [facility] F31.62 Bipolar disorder, current episode mixed, moderate BIPOLAR DISORDER, CURRENT EPISODE MIXED, MODERATE Diagnosis 11/10/2020 11:00:00 AM [facility] F50.2 Bulimia nervosa BULIMIA NERVOSA Diagnosis 10/31/2020 11:0 0:00 AM [facility] M54.6 Pain in thoracic spine PAIN IN THORACIC SPINE Diagnosi s 10/04/2020 10:07:00 AM [facility] M25.50 Pain in unspecified joint PAIN IN UNSPECIFIED JOINT Di agnosis 10/04/2020 10:07:00 AM [facility] R10.11 Right upper quadrant pain RIGHT UPPER QUADRANT PAIN Di agnosis 10/04/2020 10:07:00 AM [facility] K59.09 Other constipation OTHER CONSTIPATION Diagnosis 05/2020 10:07:00 AM [facility] 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 BENIGN LIPOMATOUS NEOPLASM OF SKIN, SUBCU OF RIGHT Diagnosis 05/2020 10:07:00 AM [facility] L72.3 Sebaceous cyst SEBACEOUS CYST Diagnosis 10/04/2020 10:07: 00 AM [facility] R91.1 Solitary pulmonary nodule SOLITARY PULMONARY NODULE Di agnosis 10/04/2020 10:07:00 AM [facility] G62.9 Polyneuropathy, unspecified POLYNEUROPATHY, UNSPECIFIE D Diagnosis 10/04/2020 10:07:00 AM [facility] N63.0 Unspecified lump in unspecified breast UNSPECIFIED LUMP IN UNSPECIFIED BREAST Diagnosis 10/04/2020 10:07:00 AM [facility] N64.4 Mastodynia MASTODYNIA Diagnosis 10/04/2020 10:07:00 AM [facility] R00.2 Palpitations PALPITATIONS Diagnosis 10/04/2020 10:07:00 A M [facility] M54.81 Occipital neuralgia OCCIPITAL NEURALGIA Diagnosis 1 12/05/2019 10:07:00 AM [facility] G44.209 Tension-type headache, unspecified, not intractable TENSION-TYPE HEADACHE, UNSPECIFIED, NOT INTRACTABL Diagnosis 10/04/2020 10:07:00 AM [facility] G89.29 Other chronic pain OTHER CHRONIC PAIN Diagnosis 05/2020 10:07:00 AM [facility] M54.41 Lumbago with sciatica, right side LUMBAGO WITH S CIATICA, RIGHT SIDE Diagnosis 10/04/2020 10:07:00 AM [facility] M54.42 Lumbago with sciatica, left side LUMBAGO WITH SC IATICA, LEFT SIDE Diagnosis 10/04/2020 10:07:00 AM [facility] M54.16 Radiculopathy, lumbar region RADICULOPATHY, LUMBAR REG ION Diagnosis 10/04/2020 10:07:00 AM [facility] Z87.891 Personal history of nicotine dependence PERSONAL HISTORY OF NICOTINE DEPENDENCE Diagnosis 09/15/2020 10:52:00 PM [facility] Z79.899 Other snf (current) drug therapy [facility] [employer] [employer] (CURRENT) DRUG THERAPY Diagnosis 09/15/2020 10:52:00 PM [facility] R10.84 Generalized abdominal pain GENERALIZED ABDOMINAL PAIN Diagnosis 09/15/2020 10:52:00 PM [facility] M54.5 Low back pain LOW BACK PAIN Diagnosis 09/13/2020 10:16:00 AM [facility] R10.13 Epigastric pain EPIGASTRIC PAIN Diagnosis 09/13/2020 10:1 6:00 AM [facility] Z12.31 Encounter for screening mammogram for ma lignant neoplasm of breast ENCNTR SCREEN MAMMOGRAM FOR MALIGNANT NE Diagnosis 08/30/2020 01:00:00 PM [facility] Z13.29 Encounter for screening for other suspec emma endocrine disorder ENCOUNTER FOR SCREENING FOR OTH SUSPECTED ENDOCRIN Diagnosis 08/23/2020 02:12:00 PM [facility] Z13.228 Encounter for screening for other metabo lic disorders ENCOUNTER FOR SCREENING FOR OTHER METABOLIC DISORD Diagnosis 08/23/2020 02:12:00 PM [facility] Z13.0 Encounter for screening for diseases of the blood and blood-forming organs and certain disorders involving the immune mechanism ENCNTR SCREEN FOR DIS OF THE BLD/BLD-FORM ORG/IMMU Diagnosis 08/23/2020 02:12:00 PM [facility] Z13.220 Encounter for screening for lipoid disor ders ENCOUNTER FOR SCREENING FOR LIPOID DISORDERS Diagnosis 08/23/2020 02:12:00 PM [facility] Z76.89 Persons encountering health services in other specified circumstances PERSONS ENCOUNTERING HEALTH SERVICES IN OTH CIRCUM Diagnosis 02:12:00 PM [facility] M25.561 Pain in right knee PAIN IN RIGHT KNEE Diagnosis 09:44:00 AM [facility] Y9289 Other specified places as the place of o ccurrence of the external cause Other specified places as the place of occurrence of the external cause Diagnosis 08/12/2020 09:23:00 PM [facility] E93STLY Exposure to other specified factors, ini tial encounter Exposure to other specified factors, initial encounter Diagnosis 08/12/2020 09:23:00 PM [facility] [id number] Strain of muscle, fascia and tendon of l ower back, initial encounter Strain of muscle, fascia and tendon of lower back, initial encounter Diagnosis 08/12/2020 09:23:00 PM [facility] [id number] Strain of muscle, fascia and tendon of l eft hip, initial encounter Strain of muscle, fascia and tendon of left hip, initial encounter Diagnosis 08/12/2020 09:23:00 PM [facility] [id number] Pain in left hip Pain in left hip Diagnosis 08/12/2020 09 :23:00 PM [facility] Y92.[address] or not applicable UNSPECIFIED PLACE OR NOT APPLICABLE Diagnosis 08/02/2020 07:27:00 PM [facility] X58.XXXA Exposure to other specified factors, ini tial encounter EXPOSURE TO OTHER SPECIFIED FACTORS, INITIAL ENCOU Diagnosis 08/02/2020 07:27:00 P M [facility] F17.210 Nicotine dependence, cigarettes, uncompl icated NICOTINE DEPENDENCE, CIGARETTES, UNCOMPLICATED Diagnosis 08/02/2020 07:27:00 PM [facility] L04.0 Acute lymphadenitis of face, head and ne ck ACUTE LYMPHADENITIS OF FACE, HEAD AND NECK Diagnosis 08/02/2020 07:27:00 PM [facility] J20.9 Acute bronchitis, unspecified ACUTE BRONCHITIS, UNSPEC IFIED Diagnosis 08/02/2020 07:27:00 PM [facility] S29.012A Strain of muscle and tendon of back wall of thorax, initial encounter STRAIN OF MUSCLE AND TENDON OF BACK WALL OF THORAX Diagnosis 03/2020 07:27:00 PM [facility] M54.2 Cervicalgia CERVICALGIA Diagnosis 08/02/2020 07:27:00 PM [facility] R07.9 Chest pain, unspecified Chest pain, unspecified Diagno sis 06/07/2020 08:14:36 PM [facility] Chest pains, back and shoulder pain Chest pains, back and shoulder pain Diagnosis 06/07/2020 03:46:00 PM [facility] R51 Headache HEADACHE Diagnosis 05/29/2020 11:05:00 PM [facility] R19.7 Diarrhea, unspecified DIARRHEA, UNSPECIFIED Diagnosis 05/29/2020 11:05:00 PM [facility] [id number] Personal history of nicotine dependence Personal history of nicotine dependence Diagnosis 11/12/2019 08:51:00 PM [facility] A0811 Acute gastroenteropathy due to [place] a gent Acute gastroenteropathy due to [place] agent Diagnosis 11/12/2019 08:51:00 PM [facility] K219 Gastro-esophageal reflux disease without esophagitis Gastro-esophageal reflux disease without esophagitis Diagnosis 11/12/2019 08:51:00 PM [facility] R109 Unspecified abdominal pain Unspecified abdominal pain Diagnosis 11/12/2019 08:51:00 PM [facility] R935 Abnormal findings on diagnos tic imaging of other abdominal regions, including retroperitoneum Abnormal findings on diagnostic imaging of other abdominal regions, including retroperitoneum Diagnosis 0 06:10:00 PM [facility] K529 Noninfective gastroenteritis and colitis , unspecified Noninfective gastroenteritis and colitis, unspecified Diagnosis 11/10/2019 06:10:00 PM [facility] R1084 Generalized abdominal pain Generalized abdominal pain Diagnosis 11/10/2019 06:10:00 PM [facility] Surgeries/Procedures Procedure Description Date Indications Data Source(s) CT ANGIOGRAPHY CHEST W/CONTRAST/[place] [address] CODE 06/07/2020 7:16 PM EDT 06/07/2020 07:16:50 PM EDT [facility] CT HEAD/BRAIN W/O CONTRAST MATERIAL CT HEAD WITHOUT CONTRAST 70 450 STAT 06/07/2020 7:05 PM EDT 06/07/2020 07:05:39 PM EDT [facility] COVID-19 PCR COVID-19 PCR Routine 06/07/2020 6:08 PM EDT 06/07[facility]2020 [facility]ANTITATIVE POCT ISTAT TROPONIN Routine 06/07/2020 6:01 PM EDT 06/07/2020 06:01:00 [facility] ED PHYSICIAN INTERPRETATION EKG ED PHYSICIAN INTERPRETATION Routine 06/07/2020 5:59 PM EDT 06/07/2020 05:59:41 [facility] POCT ISTAT BHCG POCT ISTAT BHCG Routine 06/07/2020 5:07 PM EDT 06/07/2020 05:07:00 PM [facility] XR CHEST FRONTAL AND LATERAL [id number] XR CHEST FRONTAL AND LATERAL [id number] STAT 06/07/2020 5:03 PM EDT 06/07/2020 05:03:21 PM [facility] TROPONIN QUANTITATIVE POCT ISTAT TROPONIN Routine 06/07/2020 4:04 PM EDT 06/07/2020 04:04:00 PM EDT [facility] PROBNP PROBNP Routine 06/07/2020 3:58 PM EDT 06/07/20 20 03:58:00 PM EDT [facility] BLOOD COUNT COMPLETE AUTO&AUTO DIFRNTL WBC COUNT CBC AND DIFFER ENTIAL Routine 06/07/2020 3:58 PM EDT 06/07/2020 03:58:00 PM EDT [facility] TROPONIN QUANTITATIVE TROPONIN T Routine 06/07/2020 3:58 PM EDT 06/07/2020 03:58:00 PM EDT [facility] PHOSPHORUS INORGANIC PHOSPHORUS LEVEL Routine 06/07/2020 3:58 PM E DT 06/07/2020 03:58:00 PM EDT [facility] MAGNESIUM MAGNESIUM LEVEL Routine 06/07/2020 3:58 PM EDT 06/07/2020 03:58:00 PM EDT [facility] LIPASE LIPASE LEVEL Routine 06/07/2020 3:58 PM EDT 06/07/2020 03:58:00 PM EDT [facility] HEMOGLOBIN GLYCOSYLATED A1C HEMOGLOBIN A1C Routine 06/07/2020 3:58 PM EDT 06/07/2020 03:58:00 PM EDT [facility] HEPATIC FUNCTION PANEL HEPATIC FUNCTION PANEL A Routine 06/07/2020 3:58 PM EDT 06/07/2020 03:58:00 PM EDT [facility] LIPID PANEL LIPID PANEL Routine 06/07/2020 3:58 PM EDT 06/07/2020 03:58:00 PM EDT [facility] BASIC METABOLIC PANEL CALCIUM TOTAL BASIC METABOLIC PANEL Routi ne 06/07/2020 3:58 PM EDT 06/07/2020 03:58:00 PM EDT [facility] EKG 12-LEAD - CMAXX REPORT EKG 12-LEAD - CMAXX REPORT 06/07/2020 2:42 PM EDT 06/07/2020 02:42:37 PM EDT [facility] EKG 12-LEAD - CMAXX REPORT EKG 12-LEAD - CMAXX REPORT 06/07/2020 2:42 PM EDT 06/07/2020 02:42:37 PM EDT [facility] EKG 12-LEAD EKG 12-LEAD STAT 06/07/2020 2:42 PM EDT 06/07/2020 02:42:37 PM [facility] Results ID Date Data Source [id number] 09/19/2020 01:59:00 PM EST [facility] DATE OF EXAMINATION: 09/19/2020 10:23 ES T US ABDOMINAL COMPLETE COMPARED TO: CT scan of 09/15/2020 HISTORY: Pain Real-time ultrasound imaging was performed utilizing B-mode/cummings scale and colorDoppler imaging where applicable. The liver displays a normal homogeneous echotexture throughout. There is nointra or extrahepatic biliary dilation. The gallbladder appears normal,revealing no signs of gallstones or gallbladder wall thickening. The common bileduct measures 4 mm. The right kidney measures 11 cm and the left kidney [id number] cm longitudinally. Both kidneys display normal homogeneous echotexturethroughout and show no hydronephrosis. The visualized portions of the pancreas,spleen, the abdominal aorta and IVC are normal in appearance. IMPRESSION: Normal abdominal sonogram. Electronically signed in PS360 by: Jose Segovia M.D. 09/19/2020 13:54 EST Name Value Range Interpretation Code Description Data Michelle rce(s) Supporting Document(s) ID Date Data Source [id number] 09/16/2020 09:43:00 PM EST [facility] Patient: DAKOTA RAYMUNDO Observa tion Report - [facility].VisitID: [id number] [place] [address] [phone], FRegistration Date/Time: 09/15/2020 22:28 Weight:72.5 kg (S). Height/Length:61 inches (S). BMI:30.2 FAMILY HISTORYNo significant family medical history. (Electronically signed by Imelda Choi M.D. 09/16/2020 21:28) Name Value Range Interpretation Code Description Data Michelle rce(s) Supporting Document(s) ID Date Data Source [id number] 09/16/2020 07:09:00 AM EST [facility] CT SCAN OF THE ABDOMEN AND PELVIS DATE O F EXAMINATION: 09/15/2020 INDICATION: Right lower quadrant pain COMPARISON: 09/06/2020 TECHNIQUE: Axial images were obtained through the abdomen and pelvis from thelung bases through the rectum. Intravenous contrast was not utilized for thisexamination. One or more of the following dose reduction techniques were utilized ineffectively lowering the radiation dose for this examination: Automated ExposureControl, Adjustment of the mA and/or kV according to patient size, or Iterativereconstruction ABDOMEN FINDINGS: There is a tiny, approximately 2.2 mm pleural-based nodule inthe left lower lobe there is a tiny, approximately 2.6 mm nodule in the rightlower lobe. These are not identified on the previous CT scan. There is a verysmall hiatal hernia. Liver, spleen, pancreas, adrenal glands, and kidneys appearnormal. Abdominal aorta is unremarkable. No adenopathy, ascites, or abnormalintra- abdominal masses are identified. There are postoperative changes in theascending colon. No dilated small bowel or bowel wall thickening. PELVIC FINDINGS: No adenopathy, ascites, or abnormal pelvic masses areidentified. The visualized bowel and urinary bladder are unremarkable. Theappendix is normal. IMPRESSION: No acute intra-abdominal process Electronically signed in PS360 by: Shereen Simpson M.D. 09/16/2020 7:03 EST Name Value Range Interpretation Code Description Data [facility](s) Supporting Document(s) ID Date Data Source [id number] 09/15/2020 11:29:00 PM [facility] TSYSORDER [id number] Name Value Range Interpretation Code Description Data [facility](s) Supporting Document(s) GLUCOSE 80 mg/dL 74-106 [facility] BLOOD UREA NITROGEN 9 mg/dL 7-18 [facility] ital CREATININE 0.9 mg/dL 0.6-1.0 [facility] SODIUM 141 mmol/L 136-145 [facility] POTASSIUM 4.7 mmol/L 3.5-5.1 [facility] CHLORIDE 104 mmol/L 98-107 [facility] CO2 29 mmol/L 21-32 [facility] CALCIUM 9.1 mg/dL 8.5-10.1 [facility] ANION GAP 8.0 mmol/L 5-12 [facility] GLOMERULAR FILTRATION RATE 73 mL/min [facility] GFR IS CALCULATED IN mL/min/1.73m2 KYLEIGH L FUNCTION: >90MILDLY DECREASED: 60-89MILDY TO MODERATELY DECREASED: 45-59 MODERATELY TO SEVERELY DECREASED: 30-44SEVERELY DECREASED: 15-29RENAL FAILURE: <15 AST 15 U/L 15-37 [facility] ALT 18 U/L 12-78 [facility] ALKALINE PHOSPHATASE 69 U/L 46-116 [facility] pital TOTAL BILIRUBIN 0.3 mg/dL 0.2-1.0 [facility] TOTAL PROTEIN 6.2 g/dl 6.4-8.2 L [facility] ALBUMIN 3.5 gm/dL 3.4-5.0 [facility] ID Date Data Source [id number] 09/15/2020 11:29:00 PM [facility] l TSYSORDER [id number] Name Value Range Interpretation Code Description Data Michelle rce(s) Supporting Document(s) LIPASE 149 U/L 73-393 [facility] ID Date Data Source [id number] 09/15/2020 11:29:00 PM [facility] l TSYSORDER [id number] Name Value Range Interpretation Code Description Data Michelle rce(s) Supporting Document(s) AMYLASE 63 U/L 25-115 [facility] ID Date Data Source [id number] 09/15/2020 11:23:00 PM [facility] l TSYSORDER [id number] Name Value Range Interpretation Code Description Data Michelle rce(s) Supporting Document(s) LACTIC ACID 1.6 mmol/L 0.4-2.0 [facility] ID Date Data Source [id number] 09/15/2020 10:58:00 PM [facility] TSYSORDER [id number] Name Value Range Interpretation Code Description Data Michelle rce(s) Supporting Document(s) WHITE BLOOD COUNT 5.7 K/mm3 4.0-10.0 [facility] al RED BLOOD COUNT 4.23 M/mm3 4.00-5.50 [facility] HEMOGLOBIN 12.4 gm/dL 12.0-16.0 [facility] HEMATOCRIT 38.2 % 36.0-48.8 [facility] MEAN CELL VOLUME 90.3 fl 80-96 [facility] MEAN CORPUSCULAR HEMOGLOBIN 29.3 pg 27.0-31.0 [facility] MEAN CORPUSCULAR HGB CONC 32.5 g/dl 32.0-36.0 [facility] RED CELL DISTRIBUTION WIDTH 12.8 % 10.0-14.5 [facility] PLATELET COUNT 233 K/mm3 172-450 [facility] MEAN PLATELET VOLUME 10.3 fl 9.0-13.0 [facility] pital GRAN % 55.4 % 50-80.0 [facility] IG% 0.2 % 0.0-0.2 [facility] LYMPH % 34.3 % 25.0-50.0 [facility] MONO % 6.2 % 2.0-10.0 [facility] EOS % 2.8 % 0-5.0 [facility] BASO % 1.1 % 0.0-2.0 [facility] GRAN # 3.2 K/mm3 2.0-8.00 [facility] IG# 0.0 K/mm3 0.0-0.2 [facility] LYMPH # 2.0 K/mm3 1.0-5.0 [facility] MONO # 0.4 K/mm3 0.10-1.20 [facility] EOS # 0.2 K/mm3 0.0-0.5 [facility] BASO # 0.1 K/mm3 0.0-0.2 [facility] ID Date Data Source [id number] 09/15/2020 10:47:00 PM [facility] ital TSYSORDER [id number] Name Value Range Interpretation Code Description Data Michelle rce(s) Supporting Document(s) URINE COLOR. [facility] URINE APPEARANCE CLEAR [facility] l URINE GLUCOSE (UA) NEGATIVE mg/dL NEGATIVE [facility] URINE BILIRUBIN NEGATIVE NEGATIVE [facility] URINE KETONE NEGATIVE mg/dL NEGATIVE [facility] SPECIFIC GRAVITY,URINE 1.025 1.001-1.035 [facility] URINE BLOOD NEGATIVE NEGATIVE [facility] PH,URINE 6.5 5.0-9.0 [facility] URINE PROTEIN NEGATIVE mg/dL NEGATIVE [facility] UR[facility] UROBILINOGEN NORMAL(0.2-1) mg/dL 0-1 [facility] URINE NITRATE NEGATIVE NEGATIVE [facility] URINE LEUKOCYTE ESTERASE NEGATIVE NEGATIVE [facility] ID Date Data Source [id number] 09/13/2020 12:09:00 PM EST [facility] Name Value Range Interpretation Code Description Data Michelle rce(s) Supporting Document(s) LIPASE 109 U/L 73-393 [facility] ID Date Data Source [id number] 09/13/2020 12:09:00 PM EST [facility] Name Value Range Interpretation Code Description Data Michelle rce(s) Supporting Document(s) AMYLASE 51 U/L 25-115 [facility] ID Date Data Source [id number] 09/13/2020 11:30:00 AM [facility] Name Value Range Interpretation Code Description Data Michelle rce(s) Supporting Document(s) WHITE BLOOD COUNT 5.4 K/mm3 4.0-10.0 [facility] al RED BLOOD COUNT 4.45 M/mm3 4.00-5.50 [facility] HEMOGLOBIN 12.9 gm/dL 12.0-16.0 [facility] HEMATOCRIT 39.7 % 36.0-48.8 [facility] MEAN CELL VOLUME 89.2 fl 80-96 [facility] MEAN CORPUSCULAR HEMOGLOBIN 29.0 pg 27.0-31.0 [facility] MEAN CORPUSCULAR HGB CONC 32.5 g/dl 32.0-36.0 [facility] RED CELL DISTRIBUTION WIDTH 12.5 % 10.0-14.5 [facility] PLATELET COUNT 241 K/mm3 172-450 [facility] MEAN PLATELET VOLUME 10.1 fl 9.0-13.0 [facility] pital GRAN % 60.8 % 50-80.0 [facility] IG% 0.0 % 0.0-0.2 [facility] LYMPH % 31.6 % 25.0-50.0 [facility] MONO % 5.2 % 2.0-10.0 [facility] EOS % 1.7 % 0-5.0 [facility] BASO % 0.7 % 0.0-2.0 [facility] GRAN # 3.3 K/mm3 2.0-8.00 [facility] IG# 0.0 K/mm3 0.0-0.2 [facility] LYMPH # 1.7 K/mm3 1.0-5.0 [facility] MONO # 0.3 K/mm3 0.10-1.20 [facility] EOS # 0.1 K/mm3 0.0-0.5 [facility] BASO # 0.0 K/mm3 0.0-0.2 [facility] ID Date Data Source [id number] 09/07/2020 07:09:[address] [facility] [address] SCAN OF THE ABDOMEN AND PELVIS WITHOU T CONTRAST DATE OF EXAMINATION: 09/06/2020 22:06 EST ABD/PEL NO CONTRAST INDICATION: Right flank and right lower quadrant pain. COMPARISON: 03/08/2029 TECHNIQUE: 5 mm axial images were obtained through the abdomen and pelvis fromthe lung bases through the symphysis pubis without the use of oral or IVcontrast. Computer generated coronal reconstructions were obtained. One or more of the following dose reduction techniques were utilized ineffectively lowering the radiation dose for this examination: Automated ExposureControl, Adjustment of the mA and/or kV according to patient size, or Iterativereconstruction. FINDINGS: The lung bases appear unremarkable. The liver, spleen, pancreas, adrenal glands, and kidneys appear normal. Nokidney or ureteral stones are identified. No hydronephrosis or perinephricstranding. No adenopathy, ascites, or abnormal masses are identified. Thepatient is post subtotal colectomy with an ileocolic anastomosis. PELVIC FINDINGS: No distal urinary tract calcifications. The bladder isunremarkable. There is no free air or free fluid in the pelvis. There are noenlarged nodes or pelvic masses. IMPRESSION: No evidence of obstructive uropathy. No kidney or urinary tractcalcifications identified. Electronically signed in PS360 by: Shereen Simpson M.D. 09/07/2020 7:04 EST Name Value Range Interpretation Code Description Data Michelle rce(s) Supporting Document(s) ID Date Data Source [id number] 09/07/2020 12:59:00 AM EST [facility] Patient: DAKOTA RAYMUNDO Observa tion Report - [facility].VisitID: [id number] [place] [address] [phone], FRegistration Date/Time: 09/06/2020 21:40 Weight:74.3 kg (S). Height/Length:61 inches (S). BMI:31 PAST HISTORYProblems:Abdominal Pain [Active].Bulging disks [Chronic].Plantar Fasciitis [Chronic].Depression [Chronic].Bipolar Disorder [Chronic].Anxiety disorder [Chronic].Back Pain [Intermittent].Lower Extremity Pain [Intermittent].Lymphadenitis [Resolved].Bronchitis [Resolved].Diarrhea [Resolved].Headache [Resolved]. Additional Surgeries:Colon resection for bowel obstruction.Hysterectomy. Medications:TraZODone HCl Oral (Tablet 100 mg) 1-2 tablet, daily at bedtime, last dose last night.Latuda Oral (Tablet 20 mg) 1 tablet, daily, last dose this am. Allergies:No Known Drug Allergy. FAMILY HISTORYMother: Psychological Disorder. INSTRUCTIONSYour Current Medications: Your current home medications have been reviewed. CONTINUE TAKING THE FOLLOWING MEDICATIONS:Latuda Oral : Tablet 20 mg, 1 tablet daily, Last: this am. TraZODone HCl Oral : Tablet 100 mg, 1-2 tablet daily, Last: last night, at [facility]. (Electronically signed by Rae Palmer 09/07/2020 00:50) Name Value Range Interpretation Code Description Data Michelle rce(s) Supporting Document(s) ID Date Data Source [id number] 09/06/2020 10:36:00 PM [facility] l TSYSORDER [id number] Name Value Range Interpretation Code Description Data Michelle rce(s) Supporting Document(s) MAGNESIUM 2.0 mg/dL 1.8-2.4 [facility] ID Date Data Source [id number] 09/06/2020 10:36:00 PM [facility] l TSYSORDER [id number] Name Value Range Interpretation Code Description Data Michelle rce(s) Supporting Document(s) LIPASE 455 U/L 73-393 H [facility] ID Date Data Source [id number] 09/06/2020 10:36:00 PM [facility] l TSYSORDER [id number] Name Value Range Interpretation Code Description Data [facility] rce(s) Supporting Document(s) GLUCOSE 100 mg/dL 74-106 [facility] BLOOD UREA NITROGEN 8 mg/dL 7-18 [facility] ital CREATININE 0.9 mg/dL 0.6-1.0 [facility] SODIUM 139 mmol/L 136-145 [facility] POTASSIUM 3.5 mmol/L 3.5-5.1 [facility] CHLORIDE 103 mmol/L 98-107 [facility] CO2 27 mmol/L 21-32 [facility] CALCIUM 9.1 mg/dL 8.5-10.1 [facility] ANION GAP 9.0 mmol/L 5-12 [facility] GLOMERULAR FILTRATION RATE 73 mL/min [facility] GFR IS CALCULATED IN mL/min/1.73m2 KYLEIGH L FUNCTION: >90MILDLY DECREASED: 60-89MILDY TO MODERATELY DECREASED: 45-59 MODERATELY TO SEVERELY DECREASED: 30-44SEVERELY DECREASED: 15-29RENAL FAILURE: <15 AST 12 U/L 15-37 [facility] ALT 18 U/L 12-78 [facility] ALKALINE PHOSPHATASE 71 U/L 46-116 [facility] pital TOTAL BILIRUBIN 0.5 mg/dL 0.2-1.0 [facility] TOTAL PROTEIN 6.6 g/dl 6.4-8.2 [facility] ALBUMIN 3.7 gm/dL 3.4-5.0 [facility] ID Date Data Source [id number] 09/06/2020 10:33:00 PM [facility] l TSYSORDER [id number] Name Value Range Interpretation Code Description Data Michelle rce(s) Supporting Document(s) PARTIAL THROMBOPLASTIN TIME 26.7 SECONDS 21.2-27.3 [facility] ID Date Data Source [id number] 09/06/2020 10:33:00 PM [facility] TSYSORDER [id number] Name Value Range Interpretation Code Description Data Michelle rce(s) Supporting Document(s) PROTHROMBIN TIME (PATIENT) 10.6 SECONDS 9.1-11.6 [facility] INR 1.02 0.87-1.06 [facility] ID Date Data Source [id number] 09/06/2020 10:21:00 PM [facility] ital TSYSORDER [id number] Name Value Range Interpretation Code Description Data Michelle rce(s) Supporting Document(s) URINE COLOR. [facility] URINE APPEARANCE CLEAR [facility] l URINE GLUCOSE (UA) NEGATIVE mg/dL NEGATIVE [facility] URINE BILIRUBIN NEGATIVE NEGATIVE [facility] URINE KETONE NEGATIVE mg/dL NEGATIVE [facility] SPECIFIC GRAVITY,URINE 1.020 1.001-1.035 [facility] URINE BLOOD NEGATIVE NEGATIVE [facility] PH,URINE 7.0 5.0-9.0 [facility] URINE PROTEIN NEGATIVE mg/dL NEGATIVE [facility] URINE UROBILINOGEN NORMAL(0.2-1) mg/dL 0-1 [facility] URINE NITRATE NEGATIVE NEGATIVE [facility] URINE LEUKOCYTE ESTERASE NEGATIVE NEGATIVE [facility] ID Date Data Source [id number] 09/06/2020 10:16:00 PM [facility] l TSYSORDER [id number] Name Value Range Interpretation Code Description Data Michelle rce(s) Supporting Document(s) WHITE BLOOD COUNT 5.4 K/mm3 4.0-10.0 [facility] al RED BLOOD COUNT 4.29 M/mm3 4.00-5.50 [facility] HEMOGLOBIN 12.6 gm/dL 12.0-16.0 [facility] HEMATOCRIT 38.3 % 36.0-48.8 [facility] MEAN CELL VOLUME 89.3 fl 80-96 [facility] MEAN CORPUSCULAR HEMOGLOBIN 29.4 pg 27.0-31.0 [facility] MEAN CORPUSCULAR HGB CONC 32.9 g/dl 32.0-36.0 [facility] RED CELL DISTRIBUTION WIDTH 12.6 % 10.0-14.5 [facility] PLATELET COUNT 221 K/mm3 172-450 [facility] MEAN PLATELET VOLUME 10.1 fl 9.0-13.0 [facility] pital GRAN % 59.9 % 50-80.0 [facility] IG% 0.2 % 0.0-0.2 [facility] LYMPH % 31.3 % 25.0-50.0 [facility] MONO % 6.1 % 2.0-10.0 [facility] EOS % 1.8 % 0-5.0 [facility] BASO % 0.7 % 0.0-2.0 [facility] GRAN # 3.3 K/mm3 2.0-8.00 [facility] IG# 0.0 K/mm3 0.0-0.2 [facility] LYMPH # 1.7 K/mm3 1.0-5.0 [facility] MONO # 0.3 K/mm3 0.10-1.20 [facility] EOS # 0.1 K/mm3 0.0-0.5 [facility] BASO # 0.0 K/mm3 0.0-0.2 [facility] ID Date Data Source [id number] 08/30/2020 02:35:00 PM EST [facility] DATE OF EXAMINATION: 08/30/2020 13:42 EST CHEST W/O IV CONTRAST HISTORY: Lung nodule. Comparison is made to prior CT scan of 10/06/2018 TECHNIQUE: This CT exam was performed using the following dose reduction techniques:automatic exposure control, adjustment of mA and/or kV according to thepatient's size, and use of iterative reconstruction technique. Standard contiguous axial spiral imaging was obtained from lung apices to thelung bases without intravenous contrast administration and with coronalreformatting. FINDINGS: Lungs: Previously noted reticulonodular parenchymal disease in the left lowerand left upper lobe has resolved consistent with resolved bronchiolitis. Barelyperceptible nodule within the right lung is unchanged. There are no parenchymalmasses or focal consolidation or other changesPleural space: No pleural effusionMediastinum: No lymphadenopathy or pericardial effusionBones/joints: Unremarkable Adrenal glands appear normal IMPRESSION: Previously noted reticulonodular parenchymal disease within the left lung hasresolved consistent with resolved bronchiolitis. Small nodule in the right lung is unchanged. Electronically signed in PS360 by: Jose Segovia M.D. 08/30/2020 14:29 EST Name Value Range Interpretation Code Description Data Michelle rce(s) Supporting Document(s) ID Date Data Source [id number] 08/30/2020 02:32:00 PM EST [facility] DATE OF EXAMINATION: 08/30/2020 13:42 EST BREAST UNILATERAL COMPLETE ULTRASOUND LEFT BREAST HISTORY: Tenderness Real-time ultrasound imaging was performed utilizing B-mode/cummings scale and colorDoppler imaging where applicable. Ultrasound evaluation of the breast was performed, revealing no solid or cysticmasses. No large calcifications can be identified. Normal-appearing glandulartissue is noted. IMPRESSION: Normal breast ultrasound. There are 2 axillary nodes each measuring 1 x 0.8 cm likely inflammatory. It should be emphasized that this examination does not entirely exclude subtlebreast patholog y. BIRAD CATEGORY 2- BENIGN FINDINGS, ROUTINE YEARLY FOLLOW-UP RECOMMENDED. Electronically signed in PS360 by: Jose Segovia M.D. 08/30/2020 14:27 EST Name Value Range Interpretation Code Description Data Michelle rce(s) Supporting Document(s) ID Date Data Source [id number] 08/30/2020 02:32:00 PM EST [facility] DATE OF EXAMINATION: 08/30/2020 13:42 EST BREAST UNILATERAL COMPLETE ULTRASOUND RIGHT BREAST HISTORY: Tenderness Real-time ultrasound imaging was performed utilizing B-mode/cummings scale and colorDoppler imaging where applicable. Ultrasound evaluation of the breast was performed, revealing no solid or cysticmasses. No large calcifications can be identified. Normal-appearing glandulartissue is noted. IMPRESSION: Normal breast ultrasound. It should be emphasized that this examination does not entirely exclude subtlebreast pathology. BIRAD CATEGORY 1 - NEGATIVE, ROUTINE YEARLY FOLLOW-UP. Electronically signed in PS360 by: Jose Segovia M.D. 08/30/2020 14:26 EST Name Value Range Interpretation Code Description Data Michelle rce(s) Supporting Document(s) ID Date Data Source [id number] 08/17/2020 10:59:00 AM EDT [facility] DATE OF EXAMINATION: 08/17/2020 10:41 ED T TECHNIQUE: 4 views right knee were obtained. HISTORY: Pain FINDINGS: No evidence of acute fracture or dislocation. No knee joint effusion. There isnormal alignment. No aggressive osseous lesions or erosions. Bone mineraldensity is unremarkable. Visualized soft tissues are normal. IMPRESSION: No evidence of acute fracture or dislocation. Electronically signed in PS360 by: Jose Segovia M.D. 08/17/2020 10:54 EDT Name Value Range Interpretation Code Description Data Michelle rce(s) Supporting Document(s) ID Date Data Source [id number] 08/15/2020 11:06:00 [place] [address] PHONE: [phone] FAX: [phone] Name .................. : DEONNA DAWKINSPATT Colbert Acct Number.................. : [id number] ROOM. ................. : TR-07 Number ................... : [id number] Stay type ............. : E/R Discharge Date......... ... : 08/12/20 Admit Date ....... .. : 08/12/20 Admit Phys .................... : PREM MARIE Date of ....... : 1990 Family Phys ................... : MONIKA Phone .................. : [phone] Age ................................ : 30 Film# .................. .:[id number] Sex ................................. : F Unsigned transcriptions are preliminary reports and do not represent a medical or legal document CT ABD & PELV W/O ORAL W/O IV [id number] COMPLETE:08/12/20 21:57 KJE [id number] Reason(s): Abdominal Pain CT OF THE ABDOMEN AND PELVIS WITHOUT CONTRAST: INDICATION: Abdominal pain. FINDINGS: The chest base is clear. There is normal noncontrast CT appearance of the liver, spleen, pancreas, adrenal glands and kidneys. No gallbladder wall thickening or biliary duct dilatation. The visualized bowel demonstrate prior sigmoid colon surgery. There is no bowel wall thickening. No dilated loops of bowel. The appendix is not visualized. The bladder is minimally distended which limits evaluation. The patient appears to be status post hysterectomy. No acute osseous abnormality. No lymphadenopathy. IMPRESSION: No acute intra-abdominal process. While performing the above CT examination, radiation dose reduction was accomplished utilizing automated exposure control, adjusting of the mA and kV based on the patient's body size and/or the use of imperative reconstructive techniques. CT dose: 721.5 mGycm Page 1 of 2 [place] [address] PHONE: [phone] FAX: [phone] Name .................. : RAYMUNDO DAKOTA L Acct Number.................. : [id number] ROOM. ................. : TR-07 MR Number ................... : [id number] Stay type ............. : E/R Discharge Date......... ... : 08/12/20 Admit Date ......... : 08/12/20 Admit Phys .................... : PREM MARIE Date of ....... : 1990 Family Phys ................... : MONIKA Phone .................. : [phone] Age ................................ : 30 Film# .................. .:[id number] Sex ................................. : F Unsigned transcriptions are preliminary reports and do not represent a medical or legal document CT ABD & PELV W/O ORAL W/O IV [id number] COMPLETE:08/12/20 21:57 KJE [id number] Reason(s): Abdominal Pain Electronically Reviewed and Signed By Laurent Lr M.D. , 08/15/20 11:06, [place] Transcribe Initials: EYAL , Transcribe Date: 08/12/20 22:41, Dictation Date: Copy for: EMERGENCY DEPT via mode Copy for: 710 MED REC DISCHARGED Page 2 of 2 Name Value Range Interpretation Code Description Data Michelle rce(s) Supporting Document(s) ID Date Data Source [id number] 08/12/2020 09:23:00 PM EDT [facility] 1 OrderSheet [facility] Emergency Department [address] [place] [address] Phone #: ext- [phone] 08/12/2020 21:15 Patient: DAKOTA RAYMUNDO Sex: F : 1990 Age: 30yWEIGHT:75.2 kg (S) HEIGHT:61 inches (S) BMI:31.3ALLERGIES: toradol causes GI UpsetCHIEF COMPLAINT: pain, numbnessDIAGNOSIS: Muscle strainLAB ORDERSOrder Description Priority Entered Acknowledged InitialedUrinalysis (Clean STAT 21:40 08/12/2020 21:42 MumtazCatch) Smith Barrios R.N. Physician;CBC w Diff STAT 21:40 08/12/2020 21:42 Smith Pandya R.N. Physician;CMP STAT 21:40 08/12/2020 21:42 Smith Pandya R.N. Physician;DIAGNOSTIC STUDY ORDERSOrder Description Priority Entered Acknowledged InitialedCT ABD PEL W/O STAT 21:40 08/12/2020 21:48 Mumtaz ,Oral W/O IV Smith Barrios R.N.Contrast Physician;(Oxygen?(No))(IV?(No)) NOTES: Severe L hip pain Reason for Study: Abdominal PainMEDICATION/IV/DRIP/FLUID ORDERSOrder Description Priority Entered Acknowledged InitialedAcetaminophen 1 g 21:41 08/12/2020 21:42 Mumtaz,PO X1 dose: 1000 Smith Barrios R.N.mg (NOW x1) Physician;[facility] Percocet 22:29 08/12/2020 22:35 Zachary Ramon(5-325mg) PO 2 tab Smith Alonzo R.N.(Two tabs to go Physician;home. [facility] ED) 2 OrderSheet [facility] Emergency Department [address] [place] [address] Phone #: ext- [phone] 08/12/2020 21:15 Patient: DAKOTA RAYMUNDO Sex: F : 1990 Age: 30yGENERAL ORDERSOrder Description Priority Entered Acknowledged Initialed[Electronically signed by Zachary Wills R.N. (22:37 08/12/2020)][Electronically signed by Smith Lucero Physician (01:59 08/13/2020)][Electronically locked by Zachary Wills R.N. (22:37 08/12/2020)] Name Value Range Interpretation Code Description Data Michelle rce(s) Supporting Document(s) ID Date Data Source [id number] 08/12/2020 09:23:00 PM EDT [facility] 1 Medication Reconciliation Report [facility] Emergency Department [address] [place] [address] Phone #: ext- [phone] 08/12/2020 21:15 Patient: DAKOTA RAYMUNDO Sex: F : 1990 Age: 30yWeight: 75.2 kgHeight/Length: 61 in.BMI: 31.3ALLERGIES: toradol causes GI UpsetThe patient's Home Medications are listed below:THE FOLLOWING MEDICATIONS NEED TO BE RECONCILED: Latuda Oral traZODone HCl OralThe source(s) of the original Home Medication information:Not obtained.The following Medications were given to the patient in the Emergency Department:Tylenol [PO] PO 1000 mg, administered: 08/12/2020 9:42:00 PMPercocet [PO] PO 2 tab, administered: 08/12/2020 10:35:00 PMThe following Medications were prescribed to the patient:cyclobenzaprine 10 mg tablet Take 1 tablet every eight hours as needed for 5 days -- for muscle spasm /pain. Dispense 15 tablet. Refills: 0. Substitution permitted.Pharmacy - [id number] - [address] ; [place] [address]. FaxNumber: [phone].Pending - ibuprofen 800 mg tablet Take 1 tablet every eight hours as needed for 10 days -- for pain /fever. Dispense 30 tablet. Refills: 0. Substitution permitted.Pharmacy - [facility] - [id number] ; [place] [address]. . -- Physician CarleyPercocet 5/325mg Two tabs to go home. Dispense in ED. -- Smith Lucero Physician Name Value Range Interpretation Code Description Data Michelle rce(s) Supporting Document(s) ID Date Data Source [id number] 08/12/2020 09:23:00 PM EDT [facility] 1 Medication Administration Record [facility] Emergency Department [address] [place] [address] Phone #: ext- [phone] 08/12/2020 21:15 Patient: DAKOTA RAYMUNDO Sex: F : 1990 Age: 30yWeight: 75.2 kgHeight/Length: 61 inBMI: 31.3ALLERGIES: toradol causes GI Upset Date/Time Medication Administered Medication OrderedGiven TYLENOL [PO] (APAP) Acetaminophen 1 g PO X1 dose:21:42 08/12/2020 Dose: 1000 mg Tablets PO 1000 mg (NOW x1)Denis Pandya R.N.Given PERCOCET [PO] THM Percocet (5- 325mg) PO 2 tab22:35 08/12/2020 (OXYCODONE-ACETAMINOPHEN) (Two tabs to go home. DispenseTina Ramon Alonzo R.N. Dose: 2 tab 5/325 mg Tablets PO in ED) Name Value Range Interpretation Code Description Data Michelle rce(s) Supporting Document(s) ID Date Data Source [id number] 08/12/2020 09:23:00 PM EDT [facility] 1 General Instructions [facility] Emergency Department [address] [place] [address] Phone #: ext- [phone] 08/12/2020 21:15 Patient: DAKOTA RAYMUNDO Sex: F : 1990 Age: 30yMuscle strain of the low back and left hip.INSTRUCTIONSYou may walk and bear weight as tolerated.(Need referral for MRI of lumbar spine and L hip if pain persists. Try to do gentle range of motionexercises for low back and L hip.).Prescription Medications:cyclobenzaprine 10 mg tablet Take 1 tablet every eight hours as needed for 5 days -- for muscle spasm /pain. Dispense 15 tablet. Refills: 0. Substitution permitted.[facility] [address] [address] [place] [address]. .Pending - ibuprofen 800 mg tablet Take 1 tablet every eight hours as needed for 10 days -- for pain /fever. Dispense 30 tablet. Refills: 0. Substitution permitted.[facility] [address] [place] [address]. .Percocet 5/325mg Two tabs to go home. Dispense in ED.Follow-up:Follow up with an orthopedic surgeon if not better. Call for an appointment. Reason for referral: evaluation,treatment and Low back strain / L hip pain. Follow up with your doctor in three days if not better. Call martín appointment. Reason for referral: evaluation, treatment and Low back strain / L hip strain.Understanding of the discharge instructions verbalized by patient. ADDITIONAL INFORMATIONMuscle Strain in the ExtremitiesA muscle strain is a stretching and tearing of muscle fibers. This causes pain, especially when youmove that muscle. There may also be some swelling and bruising.Home care Keep the hurt area raised above heart level to reduce pain and swelling. This is especially 2 General Instructions [facility] Emergency Department [address] [place] [address] Phone #: esw- [phone] 08/12/2020 21:15 Patient: DAKOTA RAYMUNDO Sex: F : 1990 Age: 30y important during the first 48 hours. Apply an ice pack over the injured area for 15 to 20 minutes every 3 to 6 hours. You should do this for the first 24 to 48 hours. You can make an ice pack by filling a plastic bag that seals at the top with ice cubes and then wrapping it with a thin towel. Be careful not to injure your skin with the ice treatments. Ice should never be applied directly to skin. Continue the use of ice packs for relief of pain and swelling as needed. After 48 hours, apply heat (warm shower or warm bath) for 15 to 20 minutes several times a day, or alternate ice and heat. You may use bjan-rhb-phkcumi pain medicine to control pain, unless another medicine was prescribed. If you have chronic liver or kidney disease or ever had a stomach ulcer or g astrointestinal bleeding, talk with your healthcare provider before using these medicines. For leg strains: If crutches have been recommended, don't put full weight on the hurt leg until you can do so without pain. You can return to sports when you are able to hop and run on the injured leg without pain.Follow-up careFollow up with your healthcare provider, or as advised.When to seek medical adviceCall your healthcare provider right away if any of these occur: The toes of the injured leg become swollen, cold, blue, numb, or tingly Pain or swelling increases [id number] [employer]. [address] [place] [address]. All rights reserved. This information is not intended as asubstitute for professional medical care. Always follow your healthcare professional's instructions.Back Pain (Acute or Chronic) 3 General Instru ctions [facility] Emergency Department [address] [place] [address] Phone #: ext- [phone] 08/12/2020 21:15 Patient: DAKOTA RAYMUNDO Sex: F : 1990 Age: 30yBack pain is one of the most common problems. The good news is that most people feel better in 1 to2 weeks, and most of the rest in 1 to 2 months. Most people can remain active.People who have pain describe it differently--not everyone is the same. The pain can be sharp, stabbing, shooting, aching, cramping or burning. Movement, standing, bending, lifting, sitting, or walking may worsen pain. It can be localized to one spot or area, or it can be more generalized. It can spread or radiate upwards, to the front, or go down your arms or legs (sciatica). It can cause muscle spasm.Most of the time, mechanical problems with the muscles or spine cause the pain. Mechanicalproblems are usually caused by an injury to the muscles or ligaments. While illness can cause backpain, it is usually not caused by a serious illness. Mechanical problems include: 4 General Instructions [facility] Emergency Department [address] [place] [address] Phone #: ext- [phone] 08/12/2020 21:15 Patient: DAKOTA RAYMUNDO Sex: F : 1990 Age: 30y Physical activity such as sports, exercise, work, or normal activity Overexertion, lifting, pushing, pulling incorrectly or too aggressively Sudden twisting, bending, or stretching from an accident, or accidental movement Poor posture Stretching or moving wrong, without noticing pain at the time Poor coordination, lack of regular exercise (check with your doctor about this) Spinal disc disease or arthritis StressPain can also be related to , or illness like appendicitis, bladder or kidney infections, pelvicinfections, and many other things.Acute back pain usually gets better in 1 to 2 weeks. Back pain related to disk disease, arthritis in thespinal joints or spinal stenosis (narrowing of the spinal canal) can become chronic and last for monthsor years.Unless you had a physical injury (for example, a car accident or fall) X-rays are usually not needed forthe initial evaluation of back pain. If pain continues and does not respond to medical treatment,X-rays and other tests may be needed.Home careTry these home care recommendations: When in bed, try to find a position of comfort. A firm mattress is best. Try lying flat on your back with pillows under your knees. You can also try lying on your side with your knees bent up towards your ch est and a pillow between your knees. At first, do not try to stretch out the sore spots. If there is a strain, it is not like the good soreness you get after exercising without an injury. In this case, stretching may make it worse. Don't sit for long periods, as in a long car ride or during other travel. This puts more stress on the lower back than standing or walking. During the first 24 to 72 hours after an acute injury or flare up of chronic back pain, apply an ice pack to the painful area for 20 minutes and then remove it for 20 minutes. Do this over a period of 60 to 90 minutes or several times a day. This will reduce swelling and pain. Wrap the ice pack in a thin towel or plastic to protect your skin. You can start with ice, then switch to heat. Heat (hot shower, hot bath, or heating pad) reduces pain and works well for muscle spasms. Heat can be applied to the painful area for 20 5 General Instructions [facility] Emergency Department [address] [place] [address] Phone #: ext- [phone] 08/12/2020 21:15 Patient: DAKOTA RAYMUNDO Sex: F : 1990 Age: 30y minutes then remove it for 20 minutes. Do this over a period of 60 to 90 minutes or several times a day. Do not sleep on a heating pad. It can lead to skin jurado or tissue damage. You can alternate ice and heat therapy. Talk with your doctor about the best treatment for your back pain. Therapeutic massage can help relax the back muscles without stretching them. Be aware of safe lifting methods and do not lift anything without stretching first.MedicinesTalk to your doctor before using medicine, especially if you have other medical problems or are takingother medicines. You may use qngx-pqz-dabowfg medicine as directed on the bottle to control pain, unless another pain medicine was prescribed. If you have chronic conditions like diabe leo, liver or kidney disease, stomach ulcers, or gastrointestinal bleeding, or are taking blood thinners, talk to your doctor before taking any medicine. Be careful if you are given a prescription medicines, narcotics, or medicine for muscle spasms. They can cause drowsiness, affect your coordination, reflexes, and judgement. Do not drive or operate heavy machinery.Follow-up careFollow up with your healthcare provider, or as advised.A radiologist will review any X-rays that were taken. Your provide will notify you of any new findingsthat may affect your care.Call [phone] if any of the following occur: Trouble breathing Confusion Very drowsy or trouble awakening Fainting or loss of consciousness Rapid or very slow heart rate Loss of bowel or bladder control 6 General Instructions [facility] Emergency Department [address] [place] [address] Phone #: ext- [phone] 08/12/2020 21:15 Patient: DAKOTA RAYMUNDO Sex: F : 1990 Age: 30yWhen to seek medical adviceCall your healthcare provider right away if any of these occur: Pain becomes worse or spreads to your legs Weakness or numbness in one or both legs Numbness in the groin or genital area [phone] [employer] [address] [place] [address]. All rights reserved. This information is not intended as asubstitute for professional medical care. Always follow your healthcare professional's instructions.Hip StrainYou have a strain of the muscles around the hip joint. A muscle strain is a stretching or tearing ofmuscle fibers. This causes pain, especially when you move that muscle. There may also be someswelling and bruising.Home care Stay off the injured leg as much as possible until you ca n walk on it without pain. If you have a lot of pain with walking, crutches or a walker may be prescribed. These can be rented or purchased at many pharmacies and surgical or orthopedic supply stores. Follow your healthcare provider's advice about when to start putting weight on that leg. Apply an ice pack over the injured area for 15 to 20 minutes every 3 to 6 hours. Do this for the first 24 to 48 hours. You can make an ice pack by filling a plastic bag that seals at the top with ice cubes and then wrapping it with a thin towel. Be careful not to injure your skin with the ice treatments. Ice should never be applied directly to skin. Continue the use of ice packs for relief 7 General Instructions [facility] Emergency Department [address] [place] [address] Phone #: ext- [phone] 08/12/2020 21:15 Patient: DAKOTA RAYMUNDO Sex: F : 1990 Age: 30y of pain and swelling as needed. After 48 hours, apply heat (warm shower or warm bath) for 15 to 20 minutes several times a day, or alternate ice and heat. You may use xdvv-fdu-jgmhweg pain medicine to control pain, unless another pain medicine was prescribed. If you have chronic liver or kidney disease or ever had a stomach ulcer or gastrointestinal bleeding, talk with your healthcare provider before using these medicines. If you play sports, you may resume these activities when you are able to hop and run on the injured leg without pain.Follow-up careFollow up with your healthcare provider, or as advised. If your symptoms don't start to get better aftera week, more tests may be needed.If X-rays were taken, you will be told of any new findings that may affect your care.When to seek medical adviceCall your healthcare provider right away if any of these occur: Increased swelling or bruising Increased pain Losing the ability to put weight on the injured side [phone] [employer] [address] [place] [address]. All rights reserved. This information is not intended as asubstitute for professional medical care. Always follow your healthcare professional's instructions. You have been given the following additional information: Muscle Strain, Extremity Back Pain (Acute or Chronic) Hip Strain You may walk and bear weight as tolerated.(Electronically signed by Smith Lucero, Physician 08/13/2020 01:59) Name Value Range Interpretation Code Description Data Michelle rce(s) Supporting Document(s) ID Date Data Source [id number] 08/12/2020 09:23:00 PM EDT [facility] 1 Clinical Report - Nurses [facility] Emergency Department [address] [place] [address] Phone #: ext- [phone] 08/12/2020 21:15 Patient: DAKOTA RAYMUNDO Sex: F : 1990 Age: 30yTRIAGEArrived by private vehicle. Historian: patient. Accompanied by friend.Triage time: :17 08/12/2020. Acuity: LEVEL 4.Chief Complaint: LEFT LOWER EXTREMITY PAIN and NUMBNESS.No injury occurred. Onset. (today). It is described as radiating to the left buttocks, lower extremity andfoot.SEPSIS SCREEN: Sepsis Screen negative. No suspected or confirmed signs of infection present. --21: Zachary Alonzo R.N.21:08/12/20. BP: 115/63. MAP: 80. HR: 82. RR: 18. O2 saturation: 98%. Temp: 97.2 F. Pain level now:06/06. --21:08/12/20 Zachary Alonzo R.N.Weight: 75.2 kg stated. Height/Length: 61 inches Per Patient. BMI: 31.3. --21:08/12/20 Zachary Farmer R.N.MedicationsLatuda Oral. --21:08/12/20 Zachary Alonzo R.N. traZODone HCl Oral. --21:08/12/20 Zachary Alonzo R.N.Allergiestoradol causes GI Upset. --21:08/12/20 Estee GardunoPROBLEMS:Sleep disorder.Bipolar Disorder. --21:08/12/20 Zachary Alonzo R.N.ADDITIONAL SURGERIES:Hysterectomy.Intestine removed For a Necrotic Bowel. --21:08/12/20 Zachary Alonzo R.N.HistorySOCIAL HX: Never smoker. History of occasional drug use: marijuana. No alcohol use. She wasoffered HIV testing but declined and hepatitis C testing but declined.SELF HARM ASSESSMENT: Self harm assessment was performed. The patient answered "no" to thequestion(s) "Do you have thoughts of harming or killing yourself?", "Do you have a plan for harming orkilling yourself?" and "Do you have any dangerous items in your possession?". 2 Clinical Report - Nurses [facility] Emergency Department [address] [place] [address] Phone #: ext- [phone] 08/12/2020 21:15 Patient: [id number] Sex: F : 1990 Age: 30y ABUSE ASSESSMENT: No report of abuse. FALL RISK ASSESSMENT: Fall risk assessment completed. Risk factors identified include patient impairment of mobility. Fall interventions initiated. Bed in low position. Brakes on. Call light in reach of patient. --21:21 08/12/20 Zachary Alonzo R.N. SOCIAL HX: The patient has not traveled outside the [place] Infectious disease exposure: No infectious disease exposure. The patient was not exposed to C-diff, MRSA or VRE. (No Known exposure to COVID). --21:23 08/12/20 Zachary Alonzo R.N.PHYSICAL ASSESSMENTEXTREMITIES: Left hip: tenderness and superficial abrasion. Limited ROM secondary to pain.SKIN: Skin is warm and dry. No bruises, cyanosis, diaphoresis noted or skin rash. --21:34 08/12/20Denis Pandya R.N.NURSING PROGRESS NOTESPatient gowned. Reassurance given to the patient. Call light placed in reach. Bed placed in lowestposition. Brakes of bed on. --21:22 08/12/20 Zachary Alonzo R.N. 21:42 08/12/2020 Tylenol (APAP) PO Tablets 1 000 mg given. --21:42 08/12/20 Denis Pandya R.N. Patient transported to [place] by wheelchair with tech. --21:48 08/12/20 Denis Pandya R.N. 22:35 08/12/2020 Percocet (oxyCODONE-Acetaminophen) PO 5/325 mg Tablets 2 tab given Allergies verified and confirmed 5 rights. Information reviewed with patient including reason for taking this medication, signs of allergic reaction, precautions and sedative warning. Verbalizes understanding. (To GO HOME per MD). --22:35 08/12/20 Zachary Alonzo R.N.DISPOSITION / DISCHARGE Condition at departure: stable. --22:27 08/12/20 Zachary Alonzo R.N. 22:27 08/12/20. BP: 116/65. MAP: 82. HR: 79. RR: 16. O2 saturation: 99%. Temp: 97.1 F. --22:27 08/12/20 Zachary Alonzo R.N. Departure time: 22:35 08/12/2020. No learning barriers present. Reviewed medication(s). Prescription(s) sent electronically to pharmacy. Medication(s) for home use given to the patient per protocol (Percocet 2 tabs to go home). Patient verbalized understanding. Written instructions provided in Fijian. The patient was discharged by the physician. She was discharged home. She left ambulatory and via private vehicle. 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 --22:36 08/12/20 Zachary Alonzo R.N. 22:35 08/12/20. Pain level now: 01/04. --22:36 08/12/20 Zachary Alonzo R.N. 3 Clinical Report - Nurses [facility] Emergency Department [address] [place] [address] Phone #: ext- [phone] 08/12/2020 21:15 [facility]: [id number] Sex: F : 1990 Age: 30yLocked/Released at 08/12/2020 22:37 by Zachary Alonzo R.N. Name Value Range Interpretation Code Description Data Michelle rce(s) Supporting Document(s) ID Date Data Source [id number] 08/12/2020 09:23:00 PM EDT [facility] 1 Clinical Report - Physicians/Mid Levels [facility] Emergency Department [address] [place] [address] Phone #: ext- [phone] 08/12/2020 21:15 Patient: [facility]AK[id number] Sex: F : 1990 Age: 30y Time Seen: 21:15 08/12/2020. Arrived- By private vehicle. Historian- patient. Disposition decision: 22:20 08/12/2020.HISTORY OF PRESENT ILLNESS Chief Complaint: (L hip pain - no recalled injury). The patient also (No recalled injuries). The injury occurred today. ( Just developed back and hip pain today). Occurred at home. The patient complains of moderate pain. No blow to the head, neck pain, loss of consciousness or seizure. Not dazed.REVIEW OF SYSTEMSNo numbness, hearing loss, headache, loss of vision or chest pain. No depression, weakness, abdominalpain, nausea or difficulty breathing. No bladder dysfunction, laceration, fever or vomiting. Has notrecently been ill.PAST HISTORYPast history not negative. See nurses notes. Other disease. Sleep DisorderBipolar. Tetanus immunization status is up-to-date. Surgeries: Had hysterectomy. (Intestinal Resection for Necrotic Bowel).SOCIAL HISTORYNever smoker. History of occasional drug use: marijuana. No alcohol use. No recent travel.ADDITIONAL NOTESThe nursing notes have been reviewed with agreement regarding the chief complaint, HPI, ROS, PMH andpatient medications and allergies.PHYSICAL EXAMVital Signs: 08/12/2020 21:17 BP: 115/63. MAP: 80. HR: 82. RR: 18. O2 saturation: 98%. Temp: 97.2 F.Pain level now: 06/06. Have been reviewed and appear to be correct. Blood pressure normal. Heart ratenormal. Respiratory rate normal. Temperature normal. Oxygen saturation normal.Appearance: Alert. Oriented X3. Anxious. Appears to be in pain. In distress. Patient in moderatedistress. No backboard or C-collar.Head: Head non-tender. No swelling of head.Eyes: Pupils equal, round and reactive to light. EOM intact.ENT: No dental injury. Pharynx normal.Neck: Painless ROM. Non-tender.CVS: Heart sounds normal. Pulses normal.Respiratory: Painless inspiration. Breath sounds normal. Chest nontender.Abdomen: No visible injury. Soft and nontender. Bowel sounds normal. No organomegaly. No mass. 2 Clinical Report - Physicians/Mid Levels [facility] Emergency Department [address] [place] [address] Phone #: ext- [phone] 08/12/2020 21:15 Patient: DAKOTA RAYMUNDO Sex: F : 1990 Age: 30y Femoral pulses equal. Back: Back tenderness present. Moderate muscle spasm in the left lower lumbar spine region. Abnormal ROM. Moderately limited ROM in the back- in the lumbar spine: decreased flexion, extension, right lateral bending, left lateral bending and rotation to the right and left. Skin: Skin intact. Skin warm and dry. Normal skin color. Normal skin turgor. Extremities: Abnormal inspection. Moderate soft tissue tenderness present in the left hip. Pelvis stable. Extremities atraumatic. No lower extremity edema. Neuro: Oriented X 3. No motor deficit. No sensory deficit.LABS, X-RAYS, AND EKGPelvic CT: No acute disease.CT Abdomen: No acute disease.Laboratory Tests: Laboratory tests have been ordered, with results reviewed and considered in themedical decision making process. Urinalysis: (CASSIE: 08/12/2020 21:47) ( MsgRcvd 08/12/2020 21:53) Final results Test Result Flag Units (Reference) URINALYSIS URINALYSIS SOURCE R COLOR yellow (NORMAL: Yello CLARITY clear (NORMAL: Clear SPEC GRAVITY 1.015 (1.001 - 1.030 pH 6 (5 - 9) GLUCOSE NORM (NORMAL: Negat BILIRUBIN NEG (NORMAL: Negat KETONE NEG (NORMAL: Negat PROTEIN NEG (NORMAL: Negat NITRITE NEG (NORMAL: Negat BLOOD NEG (NORMAL: Negat LEUK EST NEG (NORMAL: Negat UROBILINOGEN NOR (less than 1.0 MICROSCOPIC Not Indicate CBC w Diff: (CASSIE: 07/28 21:47) ( MsgRcvd 08/12/2020 21:53) Final results Test Result Flag Units (Reference) CBC W/AUTOMATED DIFF COMPLETE BLOOD COUNT WBC 7.2 10/uL (4.2 - 11.0) RBC 4.36 10/uL (4.20 - 5.40) HEMOGLOBIN 12.7 g/dL (12.0 - 16.0) HEMATOCRIT 39.1 % (37.0 - 47.0) MCV 89.7 fL (81.0 - 101) MCH 29.1 pg (27.0 - 34.0) MCHC 32.5 g/dL (31.0 - 36.0) RDW 13.0 % (11.5 - 14.5) PLATELETS 232 10/uL (150 - 450) MPV 9.7 fL (7.4 - 10.4) NEUT 59.2 % (37.0 - 80.0) LYMPH 31.3 % (25.0 - 40.0) MONO 6.3 % (3.0 - 8.0) EOS 2.2 % (0.0 - 7.0) BASO 0.7 % (0.0 - 2.5) 3 Clinical Report - Physicians/Mid Levels [facility] Emergency Department [address] [place] [address] Phone #: ext- [phone] 08/12/2020 21:15 Patient: DAKOTA RAYMUNDO Sex: F : 1990 Age: 30y %IG 0.3 H % (0.0 - 0.0) %NRBC 0.0 % (0.0 - 0.0) #NEUT 4.23 10/uL (2.00 - 6.90) #LYMPH 2.24 10/uL (0.60 - 3.40) #MONO 0.45 10/uL (0.00 - 0.90) #EOS 0.16 10/uL (0.00 - 0.70) #BASO 0.05 10/uL (0.00 - 0.20) #IG 0.02 10/uL (0.00 - 0.10) #NRBC 0.00 10/uL (0.00 - 0.00) MANUAL DIFF NOT INDICATED RBC MORPH NOT INDICATEDCMP: (CASSIE: 08/12/2020 21:47) ( MsgRcvd 08/12/2020 23:07) Final results Test Result Flag Units (Reference) COMPREHENSIVE METABOLIC PANEL COMPREHENSIVE METABOLIC PANEL SODIUM 139 mEq/L (134 - 153) POTASSIUM 4.1 mEq/L (3.6 - 5.0) CHLORIDE 103 mEq/L (98 - 107) CO2 31 H MEQ/L (22 - 30) GLUCOSE 81 MG/DL (65 - 110) BUN 12 MG/DL (7 - 21) CREATININE 0.8 MG/DL (0.7 - 1.5) BUN/CREAT 15 (8 - 27) TOTAL PROTEIN 6.3 G/DL (6.3 - 8.2) ALBUMIN 4.5 G/DL (3.9 - 5.0) GLOBULIN 1.8 L GM/DL (2.4 - 3.2) A/G RATIO 2.5 H (0.8 - 2.0) CALCIUM 10.0 MG/DL (8.4 - 10.2) TOTAL BILI <0.7 MG/DL (0.2 - 1.3) ALKALINE PHOS 81 U/L (38 - 126) SGOT/AST 16 U/L (5 - 40) SGPT/ALT 12 U/L (7 - 56) ANION GAP 5.0 L mmol/L (8.0 - 16.0) AGE 30 yrs NON-AA GFR >60 mL/min AFR AMER GFR >60 mL/min Male GFR Interprentation 20-49 yrs >60 mL/min Lsqnxm73-27 yrs >56 mL/min Normal 60-69 yrs >49 mL/min Normal 70-79yrs>42 mL/min Normal 80 and above >35 mL/min Normal Female GFRInterpretation 20-39 yrs >60 mL/min Normal 40-49 yrs >58 mL/minNormal 50-59 yrs >51 mL/min Normal 60-69 yrs >45 mL/min Stwirx99-39 yrs >39 mL/min Normal 80 and above >32 mL/min NormalCT ABD PEL W/O Oral W/O IV Contrast: (CASSIE: 08/12/2020 21:40) ( MsgRcvd 08/13/2020 00:56) InProgressCT ABDReason(s): Abdominal PainTRANSPORTATION: WC IV? IV?(No) O2? Oxygen?(No) Roo: Hysterectomy CMTS: Severe L hip pain.Note - Tests: (CT abd / pelvis - NAD as per radiology).PROGRESS AND PROCEDURES 4 Clinical Report - Physicians/[facility] Emergency Department [address] [place] [address] Phone #: ext- [phone] 08/12/2020 21:15 Patient: DAKOTA RAYMUNDO Sex: F : 1990 Age: 30y Course of Care: 22:Aug 12 2020. Patient is stable. 22:Aug 12 2020. CBC and U/A are unremarkable. CT abd / pelvis is unremarkable. Will discharge home shortly. Disposition: Discharged home in good and improved condition (:Aug 12 2020). Condition: good.CLINICAL IMPRESSION Muscle strain of the low back and left hip.INSTRUCTIONS You may walk and bear weight as tolerated. (Need referral for MRI of lumbar spine and L hip if pain persists. Try to do gentle range of motion exercises for low back and L hip.). Prescription Medications: cyclobenzaprine 10 mg tablet Take 1 tablet every eight hours as needed for 5 days -- for muscle spasm / pain. Dispense 15 tablet. Refills: 0. Substitution permitted. Pharmacy - [id number] - [id number] ; [place] [address]. . Pending - ibuprofen 800 mg tablet Take 1 tablet every eight hours as needed for 10 days -- for pain / fever. Dispense 30 tablet. Refills: 0. Substitution permitted. Pharmacy - [facility] - [address] ; [place] [address]. . Percocet 5/325mg Two tabs to go home. Dispense in ED. Follow-up: Follow up with an orthopedic surgeon if not better. Call for an appointment. Reason for referral: evaluation, treatment and Low back strain / L hip pain. Follow up with your doctor in three days if not better. Call for an appointment. Reason for referral: evaluation, treatment and Low back strain / L hip strain. Understanding of the discharge instructions verbalized by patient.(Electronically signed by Smith Lucero, Physician 08/13/2020 01:59) 5Clinical Report - Physicians/Mid Levels [facility] Emergency Department [address] [place] [address] Phone #: [phone] 08/12/2020 21:15 Patient: DAKOTA RAYMUNDO Sex: F : 1990 Age: 30y Name Value Range Interpretation Code Description Data Michelle rce(s) Supporting Document(s) ID Date Data Source [id number] 08/12/2020 10:16:00 PM EDT [facility] Name Value Range Interpretation Code Description Data Michelle rce(s) Supporting Document(s) COMPREHENSIVE METABOLIC PANEL [facility] COMPREHENSIVE METABOLIC PANEL Sodium [Moles/volume] in Serum or Plasma 139 mEq/L 134 - 153 [facility] Potassium [Moles/volume] in Serum or Plasma 4.1 mEq/L 3.6 - 5.0 [facility] Chloride [Moles/volume] in Serum or Plasma 103 mEq/L 98 - 107 [facility] Carbon dioxide, total [Moles/volume] in Serum or Plasma 31 MEQ/L 22 - 30 H [facility] Glucose [Mass/volume] in Serum or Plasma 81 MG/DL 65 - 110 [facility] BUN 12 MG/DL 7 - 21 [facility] Creatinine [Mass/volume] in Serum or Plasma 0.8 MG/DL 0.7 - 1.5 [facility] BUN/CREAT 15 8 - 27 [facility] Protein [Mass/volume] in Serum or Plasma 6.3 G/DL 6.3 - 8.2 [facility] Albumin [Mass/volume] in Serum or Plasma 4.5 G/DL 3.9 - 5.0 [facility] Globulin [Mass/volume] in Serum by calculation 1.8 GM/DL 2.4 - 3.2 L [facility] A/G RATIO 2.5 0.8 - 2.0 H [facility] Calcium [Mass/volume] in Serum or Plasma 10.0 MG/DL 8.4 - 10.2 [facility] Bilirubin.total [Mass/volume] in Serum or Plasma <0.7 MG/DL 0.2 - 1.3 [facility] Alkaline phosphatase [Enzymatic activity/volume] in Serum or Plasma 81 U/L 38 - 126 [facility] Aspartate aminotransferase [Enzymatic activity/volume] in Serum or Plasma 16 U/L 5 - 40 [facility] Alanine aminotransferase [Enzymatic activity/volume] in Seru m or Plasma 12 U/L 7 - 56 [facility] Anion gap 3 in Serum or Plasma 5.0 mmol/L 8.0 - 16.0 L [facility] AGE 30 yrs [facility] al NON-AA GFR >60 mL/min [facility] ital AFR AMER GFR >60 mL/min [facility] Male GFR In terprentation 20-49 yrs >60 mL/min Normal 50-59 yrs >56 mL/min Normal 60-69 yrs >49 mL/min Normal 70-79yrs >42 mL/min Normal 80 and above >35 mL/min Normal Female GFR Interpretation 20-39 yrs >60 mL/min Normal 40-49 yrs >58 mL/min Normal 50-59 yrs >51 mL/min Normal 60-69 yrs >45 mL/min Normal 70-79 yrs >39 mL/min Normal 80 and above >32 mL/min Normal ID Date Data Source [id number] 08/12/2020 09:53:00 PM EDT [facility] Name Value Range Interpretation Code Description Data Michelle rce(s) Supporting Document(s) [facility] COL[facility] yellow NORMAL: Yellow [facility] CLARITY clear NORMAL: Clear [facility] Specific gravity of Urine by Test strip 1.015 1.001 - 1.030 [facility] pH 6 5 - 9 [facility] al Glucose [Mass/volume] in Urine by Test strip NORM [facility] Bil[facility].total [Presence] in Urine by Test strip NEG NORMAL: Negative [facility] Ketones [Presence] in Urine by Test strip NEG NORMAL: Negative [facility] Protein [Mass/volume] in Urine by Test strip NEG NORMAL: Negat [facility] Nitrite [Presence] in Urine by Test strip NEG NORMAL: Negative [facility] BLOOD NEG NORMAL: Negative [facility] Leukocyte esterase [Presence] in Urine by Test strip NEG KYLEIGH L: Negative [facility] Urobilinogen [Mass/volume] in Urine by Test strip NOR less jeyson n 1.0 mg/dL [facility] MICROSCOPIC Not Indicate [facility] ID Date Data Source [id number] 08/12/2020 09:53:00 PM EDT [facility] Name Value Range Interpretation Code Description Data Michelle rce(s) Supporting Document(s) CBC W/AUTOMATED DIFF [facility] COMPLETE BLOOD COUNT Leukocytes [#/volume] in Blood by Automated count 7.2 10^3/uL 4.2 - 1 1.0 [facility] Erythrocytes [#/volume] in Blood by Automated count 4.36 10^6/uL 4. 20 - 5.40 [facility] Hemoglobin [Mass/volume] in Blood 12.7 g/dL 12.0 - 16.0 [facility] Hematocrit [Volume Fraction] of Blood by Automated count 39.1 % 3 7.0 - 47.0 [facility] Erythrocyte mean corpuscular volume [Entitic volume] by Auto mated count 89.7 fL 81.0 - 101 [facility] Erythrocyte mean corpuscular hemoglobin [Entitic mass] by Automated count 29.1 pg 27.0 - 34.0 [facility] Erythrocyte mean corpuscular hemoglobin concentration [Mass/volume] by Automated count 32.5 g/dL 31.0 - 36.0 [facility] Erythrocyte distribution width [Ratio] by Automated count 13.0 % 11.5 - 14.5 [facility] Platelets [#/volume] in Blood by Automated count 232 10^3/uL 150 - 45 0 [facility] Platelet mean volume [Entitic volume] in Blood by Automated count 9.7 fL 7.4 - 10.4 [facility] Neutrophils/100 leukocytes in Blood by Automated count 59.2 % 37. 0 - 80.0 [facility] Lymphocytes/100 leukocytes in Blood by Manual count 31.3 % 25.0 - 40.0 [facility] Monocytes/100 leukocytes in Blood by Automated count 6.3 % 3.0 - 8.0 [facility] Eosinophils/100 leukocytes in Blood by Automated count 2.2 % 0.0 - 7.0 [facility] Basophils/100 leukocytes in Blood by Automated count 0.7 % 0.0 - 2.5 [facility] %IG 0.3 % 0.0 - 0.0 H [facility] al %NRBC 0.0 % 0.0 - 0.0 [facility] al Neutrophils [#/volume] in Blood by Automated count 4.23 10^3/uL 2.00 - 6.90 [facility] Lymphocytes [#/volume] in Blood by Automated count 2.24 10^3/uL 0.60 - 3.40 [facility] Monocytes [#/volume] in Blood by Automated count 0.45 10^3/uL 0.00 - 0.90 [facility] Eosinophils [#/volume] in Blood by Automated count 0.16 10^3/uL 0.00 - 0.70 [facility] Basophils [#/volume] in Blood by Automated count 0.05 10^3/uL 0.00 - 0.20 [facility] #IG 0.02 10^3/uL 0.00 - 0.10 [facility] #NRBC 0.00 10^3/uL 0.00 - 0.00 [facility] MANUAL DIFF NOT INDICATED [facility] RBC MORPH NOT INDICATED [facility] ID Date Data Source [id number] 08/02/2020 11:12:00 PM EDT [facility] Patient: DAKOTA RAYMUNDO Observa tion Report - Physicians/[facility].VisitID: [id number] [place] [address] [phone], FRegistratrinity health Date/Time: 08/02/2020 18:43 Weight:76.2 kg (S). Height/Length:61 inches (S). BMI:31.8 PAST HISTORYProblems:Depression [Chronic].Bipolar Disorder [Chronic].Anxiety disorder [Chronic].Bronchitis [Resolved].Bowel Obstruction [Resolved].Pneumonia [Resolved]. Additional Surgeries:Colon resection for bowel obstruction.Hysterectomy. Medications:Robaxin Oral 500 mg, as needed, last dose 1 pm.Latuda Oral (Tablet 20 mg) 1 tablet, daily, last dose this am.TraZODone HCl Oral (Tablet 100 mg) 1 tablet, daily at bedtime, last dose last night. Allergies:No Known Drug Allergy. FAMILY HISTORYMother: P sychological Disorder. INSTRUCTIONSYour Current Medications: Your current home medications have been reviewed. CONTINUE TAKING THE FOLLOWING MEDICATIONS:Latuda Oral : Tablet 20 mg, 1 tablet daily, Last: this am. Robaxin Oral : 500 mg, Last: 1 pm, prn. TraZODone HCl Oral : Tablet 100 mg, 1 tablet daily, Last: last night, at bedtime. (Electronically signed by Rae Palmer 08/02/2020 23:01) Name Value Range Interpretation Code Description Data Michelle rce(s) Supporting Document(s) ID Date Data Source [id number] 08/02/2020 07:47:00 PM EDT [facility] DATE OF EXAMINATION: 08/02/2020 19:12 EDT CHEST 2 VIEWS HISTORY: Cough TECHNIQUE: PA and lateral radiographs of the chest COMPARISON: 11/22/2018. FINDINGS: The lungs are clear. The heart is normal in size. The pulmonary vasculature isnormal in appearance. The bony structure is intact. Impression:No acute disease. Electronically signed in PS360 by: Denis Bright M.D. 08/02/2020 19:42 EDT Name Value Range Interpretation Code Description Data Michelle rce(s) Supporting Document(s) ID Date Data Source [id number] 06/08/2020 10:15:53 AM EDT [facility] Name Value Range Interpretation Code Description Data Michelle rce(s) Supporting Document(s) ED Provider Note [facility] FTBFSn9zNdWSFpEe77/GXHihMUKui9WyAMsiWTy7PHpmXDHpX2LfVZB2vJ5kWPH7CRqHRtXkUiXtUTKs lbm [file] pUglerF9JPA3UqCVl9/halal meat packer+0XKyPWsJJ6Cp0tuseqv [file] dFawVXSPOri1AFK0UVrlOXHUMp2S ID Date Data Source [id number] 06/08/2020 12:42:04 AM EDT [facility] Name Value Range Interpretation Code Description Data Michelle rce(s) Supporting Document(s) ED Provider Note [facility] LVTSUa2pPkDOJtIz49/WWXsvBPMiu4AxJAtyGXr8GNzgWBThH4CrVIX2dQ4hUGL7BRtTSkYgBvDfZLRw lbm [file] T6S6MzEwDjMoxeUiI2QJBtMD5xPVVVWg1+UXiapAQyuNmiKFOWBlF5ZKX6ANtnZATIQr3S ID Date Data Source [id number] 06/07/2020 10:35:15 PM EDT [facility] Name Value Range Interpretation Code Description Data Michelle rce(s) Supporting Document(s) Discharge Summary [facility] FSNFCu7gDlCOHtFh63/VUHgvEBLjn9JzBAkbCXr9JSkxATAiQ1CzQRT6aM5rEOZ3TZyQTzOnZkLuXPXb lbm [file] A3ivQxLRqaVBd2YC3QQEQDX9EOOd== ID Date Data Source [id number] 06/07/2020 09:36:08 PM EDT [facility] Name Value Range Interpretation Code Description Data Michelle e(s) Supporting Document(s) History and Physical [facility] NDAOTu3mTaWVRoCs50/HDXawWSHsf7YvHIugGTz4IQhrKOEsH1LnQIE5kZ8mDYU2ZVnEQsAoByQsBKPy lbm LyXgzXNsMcHJHlAdaGPnLqMZwvSlbyfZAwNE3QrCK4OENpJ34mCLXwOKQcZ5BiPALaAWY+Tp5OVZLmaU DaIL3KVvyN3F4Ko4pQJm3hob1AN8GLGduuGysc1UmfD/HxLkZDv15x5eykubTiLhvZPhD++wVLnKm1tK WljYtZdqWEgEK3R0+fcwBKFf9+VYPAsyxLZT/1n0Fk q+up+coc6IzvD8xm7u+sOeWD6wvufJpc/tYXoz3o3oUxxGPTfw3ebkKCTfD8cpnIHx69PQ6/n1+NZ8v5 3TA8Xn8w58xgUevz4PpdP+uahxWQ28UvO488cf2/AL0s4R69h8nN6+qa+Bb1vmiZ5Mc5Bl1nJmI5k4SH 3YcjzvDvqOn2npXhGN9ot+tCaculzXdwT8QDQ7T2j4 jUSBZ/hxvsOOql7O4DLphmaWdfOUDptB15dzAmH/6DqXWRYz3IjlYpQSd5Z19ivi4GBBZcqjsFjC8zvN io3zCIXs6CbhWFMmPe90waTDldHiI2Pqk+o0J5ovZ74ADznt/sdejrTfd2RriWTlDRfEwF11zxtnSyj5 xoG2nViRxP/0BbBzoSR+/9DktCYWUiXTed7CZls+Fw yIvXdjZCP4jR7tgOMlzqcPmADj6E+DmaarIa9epyQSWTa3EtF9zWMo6MYwjktWbmH7t9SmIv29g1xeP9 /JLsnW4lj2Szvmmgvq5YqtJpSQUMoHmMZvT7NvlPRRyat5TkKz35ybdtpwpPteLIQzcJa88LDRMr/1l2 wim2G97shqoJOwkVVVhbXMQBi0EeFDdF6vJutV33D2 cnpRpCpfDmwBnzJ9EgT8wY11tyyOMsaYzgJOPkiAB+3Thl3va5znAuWw/IdgHvZ2QoaORGTzZErN/Marjan [file] QtOgPjXSHyH6KqMsOkLJRhGRQ6ZXEoJPF+IF0gDQ o+Nx8We0KcowT6mwSjXWm5JpG2Jc1RDMHYK6JXTw== ID Date Data Source [id number] 06/07/2020 07:46:07 PM EDT [facility] CT HEAD WITHOUT CONTRAST [id number] RESU LTInterpreted by:Bassam Mccoy MDCLINICAL INDICATION: 30-year-old female with chest pain as per EMR.TECHNIQUE: Contiguous axial CT images of the head were acquired from the base of the skull to the vertex without intravenous contrast administration. Images were viewed in brain, subdural and bone windows. Automated dose lowering techniques and/or adjustment according to patient size were utilized for this exam.COMPARISON: None available.FINDINGS: There is no evidence of acute intracranial hemorrhage or large territorial infarct. The ventricles and basal cisterns are within normal limits. There are no abnormal extra-axial fluid collections. There is no evidence of mass effect or midline shift. The imaged paranasal sinuses are unremarkable.There are no depressed calvarial fractures are identified. The scalp is unremarkable.IMPRESSION: No acute intracranial pathology identified.This document has been electronically signed by Jeff Lee MD on 06/07/2020 7:43 PM Name Value Range Interpretation Code Description Data Michelle rce(s) Supporting Document(s) ID Date Data Source [id number] 06/07/2020 07:29:01 PM EDT [facility] CT ANGIOGRAPHY THORAX [id number] RESULTI nterpreted by:Rashaun Ivy AMERICAN HOSPITAL ASSOCIATIONLINICAL INFORMATION: Evaluate for PE EXAMINATION: CT ANGIOGRAPHY THORAX [id number], 06/07/2020 6:57 PM, [id number]: Chest radiograph dated 06/07/2020.TECHNIQUE: Postcontrast CT angiogram of the thorax was performed after uneventful intravenous administration of 100 mL of Omnipaque 350 intravenous contrast using the pulmonary embolism protocol. Images were reformatted in the sagittal and coronal planes. Automated dose lowering techniques and/or adjustment according to patient size were utilized for this exam.FINDINGS: There is no evidence of filling defect within the main pulmonary artery, right and left central pulmonary arteries, lobar pulmonary artery segmental and subsegmental pulmonary arteries. The peripheral subsegmental pulmonary arteries are suboptimally evaluated due to their small caliber. The major mediastinal vasculature appears unremarkable.The cardiac size is unremarkable. No pericardial effusion is seen. No pathological lymphadenopathy seen within the axilla, mediastinum or yina.The trachea and the central airways patent.The visualized lung parenchyma appears normally aerated. No definite focal aeration abnormality is seen. There is no pleural effusion or pneumothorax. No pneumomediastinum is noted.The visualized subcutaneous soft tissues of the chest wall appears unremarkable. The visualized osseous structure appears unremarkable.The visualized portions of the upper abdomen appear unremarkable.IMPRESSION:1. No definite CT evidence of pulmonary embolism involving the main pulmonary artery, right and left central pulmonary arteries, lobar, segmental and subsegmental pulmonary arteries. The peripheral subsegmental pulmonary arteries are suboptimally evaluated due to their small caliber.2. Additional findings as above.This document has been electronically signed by Rashaun Ivy MD on 06/07/2020 7:26 PM Name Value Range Interpretation Code Description Data Michelle rce(s) Supporting Document(s) ID Date Data Source [id number] 06/07/2020 06:39:48 PM [facility] Name Value Range Interpretation Code Description Data Michelle rce(s) Supporting Document(s) [facility] OBYBRs3wAyTRMaMmi3FbIrMvLBNdDO6tmyi6K5Z1rHMfI9OwtFZhp1heL0SfI1RiIDRfIHDKVX2MjROz jb2 [file] 0A3aR7OWRqfG/QL+s54FkpY/diamond merchant/GN75G3C+H2UF3SdhT5eg2B6VwOuwWInuq73AZ/GuBXA/gcxP6T3D xGviZEyssOUw5lymmeEnB4oaBsGpSvOZ45pS2S5ygY aBXwfT9z5g7FctXAihi29Rdyr6FnDGvqum+854Pi8skKMT61dS2A+PXHjeqkKfQ6fms7I+SvxkL/XTdf F4qC448157If6NosMDW5Vt2C/f8OAkbufonAywTehlTerHakO/bmvNjZ/MzkjDkaGFjM2oTxoX/YW9cO vUN/7K17O/bmPSe/eq+sG8Yf3Z/9rSNeszDjx6/05F wsE6624d5XKxXD4AAgy9Yf8H/1RN2g8Owo/Kp+E/h9QD+vu3Tj1Do2G3aSD7DANscUurOfjEa4QjcT6k wiryXJrq4Jv31RsFv/Sp9g/BLGwD9Nv8Nw8N+rr/QGdT55UV/Jx05XqMc/qt/c9Veu9/6auqfge4Yv+H 9mLufkmB6pIYK+me2Z1Ws6Zr7++fCL4lB8mNzRRBk/ On3Ek1/DgLPl5O0ad/OvP3Ql5Bj2YW5UE2L/RP0L+aGfe2RreupCzyEo63dG7F9Q09MiX/B8B+J5IJ4H 9kqsbkwkTunBmQBpW3AG5d41jzFWlvmd/g1xTplZWfa/eq+hF+jl+bd48Q49YB/ODxm4Kc9FtrOj9R/x 2R3P1/F8Hc/XYa/DXkc8O+LZMV4F+a1eUyap+aQH+m /g+Qaeb+H3Ua1u3Bwry9l4TJ45KcGQ8mj8mlHwK8Z9PO/C6dW3fn730C9bwzqE4ExG1voHc4nqf2bObH N5Vlo8Ba0A2DmqHvN+0DE/6JgfdMwPOuYHHfODjvlBx/smF90WQ+xd6L/JrzKWFsarhfFqYbxKflVlB+ gD9544ragEr+U1ZbfioMnKdjIgqpdi+5TfT6HZOo/a T+o/0wyOOAyihIXuMWiT7T+/4bcmDB4tU156VkX57Kt9Wu0X/af/vtfQB/QB/YR+Qr9w/8ozydv1+47P 5cg1qch+f+O5/Kofi+n0Pq8Nj2Se2Sj0YixQ/+VU89/eL5jin9kXfElyVnX7gyG8guL0O+jfavd+/Ifd7 IeR+L1Wp61NJoE5tJ+gNeoN+QH+/i8Ca5Gjp552zwx T0E/p57QK/Crn9N+W429U28sO4G14bf7y+xdu3Tu4k06yp9R7035RN6v/c9Trf/telwT4CWkho+rqz5f Kc939o4nn7vBO7B08yva1Mbq5XM72vRmeT35O2nAfVGBgF6sd2s0KNINbo3YID5/TBs8/1r2zuK/3Ym7 x7h5k8uvBt8FkiV0S++TrJDaYK/dhR8H3Mh/Otezj8 eb1e2Re1q9Fug79Xh/3qW8d5KgfLCsM+RlFIAxd8IFels9f+rlh80ddy53CenKsgRNnX1tE72Lt2Y3m6 33G/j8QQ0yYNQ+wu3Gnane889N/U5T2UbkjcaH82KikcH5iHY+W1Qn/tE9B8WFT+MDA/EP8gB1Oej9rn A/qAfkI/ob/dVnYJ20Hhr/pLMR4dsD3A9V5R+Ramana/i dCqhutxgJ9axdANrZ6A/TI1WA87tN32aC+KpC/RvWzQvdzKZ3ncU4K2C3R+Ramana/djWrdrpjzR8j0urR+ vbA/mrmAO/d9SD/llwcReJN16exP2Z4bqJ/GGjdzYG7rE+MDA/BLqog5y643FiQhPO/Y1cr6BidlB3Rj 0Wkrcz616n/l4fe+o1y84auMn+IxbsxfqrwPqrwPqr wPqrWDdfF+knA8JfrnlguCZvT+K9K5847tkm+CNKg89c9rZ+fu/Tzgm6J6+BshrltPoXzI8I2afH/FUg fxV7Q3/51Xzu9+7TvyHOQc8Mq3La7EA4E3/kU1Z0dQ/4vaMeh/7yq/nyzpu42Abr2Fu3Zi6G/l2zRlw0 YyJ/GxFsnmm1S39iF0jSNztaQhiis5Sh/+BE/moifz XFcT+B+is8lmApmgkpzIyQH45tSxF+kr8kRu67vh+asJ1K6M8p4i2PXiqG+vv+qPwet2Tyq5FktpkP+m th9PR9d+xP5XY6W49pxpMw35U+EPd/+wh+/yr3Oc/jCv79o/OhjIvcTXZUPXoFJcRURsn1b6oif6Fl/q 2zRkVS3zmNG/JvVb+C35+N/HhHF8D6O2AbSYUvDgLV qdNay5LqsBJXGsvJrDv72ZZUYFusYeJ8ZTbXfEblP1E5luFhe/yz654+yVButvBKb2jH405xey+HAhEn 4kSCtQXbmbyDyXtLH+VBt90tkOORhDBzGMYGMSNiymWOsvIQlpsRd9W+SWub0CGhzqbANlqc5o2AHgnL 9iFBO7Lg/ZndiPaGgt7itYXAFHOeYPYPCQfQfJ+Ty iyU1pxc02px73N83t2FvcJYZyIvFt1ptYb4hs+trVZo9sCS7lcd87KMxWgNkLZhEGng96DPOhUXuXYsd f2jnfBE+FwWnZnNzjFHp6COEjXwbjgXZ81oOSy5qGm5iEueqMYYflsinsnsBUfNutRu2aWRVgfzCV48e u2cyUHUicZfY6PACEPGTWYDLdZQSKsIjLH+jFhPc+9 6/ZuKxzO8OYhYWJbHsLI7IZQizAKp0JY+FE2rN7lRJsjQ72xQ9/eQUsE2CINKpLoCW08E6ovM/uCJZJ9 AKQYaOGEtN0UYSSOMBGiKhXLQGQIUIJmdrTbfMpddt+R72Yrio5qFHMZrMh9UMIYE4nCmE7igCHM2UGW POtCP2dF7nvbdoHUZxakOMvrrAReZaRFTHBvQ6FQ1b d5DCAktKfO/ERv8fiZZPKDB9/nd4Q/pAdfbhqIl1iGPDu2VDMC+/aF4rGhub18G7wmM+gxLtkKIv43y2 davAyEg4sEBErImaAdRz+UcJFn9ZgtirY32sbGt8UGQ0675FmhMouQYaalsFWxipzu9FQSumO2idedfP rJQe2cydNEqkCDKFH+yrT3rquc9JGvhYEFNW/kRZ64 ybxeNAl9M2jkdSdXbXJfvTMRwP5YWIY57VRkBGMLZ3lKCjJXmWBmOSioY/WrKXQtilGfu2hdlEf4aWQV /jwUiAgRIaJElIgRoQ+h17RucWBC9tKkDI2gL/mAYOpLEZOfpk8qU48wkqImkR+Z6Od6wJUlKhYNiVvY 8IMVet/4L1WKYhkZEHscoHzpXvd9ADPzBfKZU/heSJ 82GNbcCti5mz+ULXAl26mOwYC+DkGICBElonibFU+PXi3MJmYGm3cCvevDR7WrtzroygIHQJ8JhUYdNA qemC/+wSrtcbsHxvmU6CvceYJKeHF/QmllS9kzXezkTTVXE9ESyNPw7BPuWzMstGropZCitKUIGO/hugo TeSVWLUtsjRBXbR2XQgyJtaABYV+ioxPgbum8nxK5+ oKENDp4a7JzVKe/pgl1f5PCg4+PXU0CLAjEqSKJeCsEKEqk75Ga8Z2GQ4jTd4Fl33GhAyPKnnSYJUp6Q WspMO398WuRoPDSIPZe6EJ2Cxiw+i3MroL43Gp6N8xzK6524eEI+ks14PNkEkPDEk0JnrTr4wxtnT2ib M1UOSriH4uxM1gdP0hXfsCycNi7n+1WdoI1kR2Fftd /ZyROzZ+1f6T19v9R3622fpneIR7eEhhfBuBq2+bnaqZ367fhj6FV95Sgcs83xFyo+Z3kknXefnaJPAP ROkLJiQZkqY2rGY5fhuUK/sLD5i51lI7be6qeHN3svPLRSISIlc2m0M/ozgwvQOWKk4Bqh707MSDzxVz 9u89I8d5oTWe7BkKmEILUZRWuBXHFemKlafPI/sM2J GAEnNw0bVueqYT/8ExC0jhK/iMyxX0n4DWVTEHUtQxQGJY3VpMSYU7wND7kCNdUkbUACtRo1HnSLY8IW JsK+7RzPvubb0yTlQ8yxdgdED3ZoNNlAVPR+8MpUCec280RkC4xPrI/clU/SeaMqcGKTG55+MAdY4dVj UNDXuwoUHa98RgTXgEIETVjm6KnF3BDPJ7A+8PLEEo [file] D55cY8NxGQAJbYi/Laqv6jlobp0FFX/72d2Swd/local bulk driver 8VjXneuaHn+R/4nuqnaRFMO4hE5finH8/xQt9BWGPDwmfZ61W7kTxhaT13ILzhgM98ivtqwuL+1/b00P iYoeOrnVYRUxYauOVAVl1oLqnavMhGOYgCmkAiev+nnP9YKK3Md+z3e7QGcJddJ4uGA2cf8Fr/lVpqbH /O5T0+H7pN1kri+zd/long term/4mFI5Nj1LMu9iAQ0VtiP [file] /jg4c9Nt00+qLxyz8s2oA+z58xh39g6163uk+KW32q Ll9/1kqtV7+kklfL+pqXe50a8quDbtn4ePYYgx/tW1N8+59ISo35u+IENeBn34nm7KwKkp8UaeDth2v6 FA4QlfY1KtFY9LCXs6VK2q+88eM8u/kgqiX+E0mmmIcO4s+TWeKxp+jecqpLfGcxWdW/2hxuG1Lb+7uN 71jMnlX+3jCf08+uVf1X/1OudZ/lWdf/lX+1igF+gV owH60Zg7+Bv31EN93Pn7QrpOFnGBkfLmAeUX10uw0G/VfS7/ah+mdIk6JynmgF+hvcu/3zyYhZOv6Rx8 6F9D/xr6d/lX+3n2fxxcxGJWrd/1HB+9XxeOoW/Qr/ba/gDxjMnlX+0dhV1uK+gxnpd/VeN8+Vc1/pd/ 1OtqezXzofETMh8W/ORoULezzzqMgyob7Ktrm/8s/f gByb5I1TDnX2mrp0LO37uRb9oXB/76S5CMabQ7+Umhz84R+yg2t5EKiok/1TK98/OdJp19Ms6OwCQJc9 o8ptaS8ranlw5JgHB9F1MXdliGjuRp/6p27y3/twtb4I6ItwgiP5Q8k/cnVwoPt5Hsfn//ojDTNs8vQs l1Pt4W92Y662ol+4oDPYlz7bbh65vC06jw8y9xb9cz dr4HfAp8U2IS4V/BBnmz1XZk/au0Z/pX+X0w/sy1pzhK4E/jT3SxYbUu+lfZ7+lf9To+93E1DlU+ln9V 42rg+TvO+8LafFN+8hd9r9vv+hx1nirVz/pX+/nk4gU9z21FrYYq8Go3Vl0Hb0L09O7jXohiuW6m5W/t Y+gxf9O/wlWwO4b7/qRex5/U9K/quEHfoBfoBXqFXq P81F13r61k23E27U0/eGfQ7Pq2KaWG+qj97VqXB/p59Iu/qv+617emKklu6SHHm/irfazQK/JO9ucP51 T40O16Jf7Ae/Alvarez/+n2tq1Ml/mhtQhw27a4V0YvhS/Nm82A9vbjO/9Ky7+qY+gdeoe+Q9+hD+iJvsWV3N 4KwaEhIqAgec5Z/avo3/Os6mU9Kf5Zy/5V9K+ifxXt Tf9KU5/nbaQWQrUv2O/oJ/TDf1f20moxLUD5Ciogu/w1we/PBqO8Ih92kGzXHdW9Ggskb8s2qZjEqVc4 r6F/Df1r6F/MnXbVL4o6iytjm1z0aHdVmQiFR8c9juima1n7sVg5t6Es+Im1wRYY/lCfn2AJhF/Qz6Pv 61Sd0Go3ZK4z9a7gp3h6O4li2d4y/eiAik2g2byubf 7t6N+O/n6o671+0kqjlz8WvEaH/G6U74R8F/H2JW8F2eoOo1P6pSfsI4atceN51u6U421GtpYaHnK/A/ E77DvDVG3A16x1Z+i4l62x4dc7cz6/MJ4H+oknieg1w+g6w3B8c+FzdBz+Wcu/yuP++F2a/eFk6bHwoA y+Iyzr35Qgeq8dVRlLo15221jW3d/QwuH41LbmU4Fl eyiBoXeqRMaD4dD81M37wJd30XB/zns7/uTaoVI+pKZ/hxYv142z/Case Management Director/+q2uV1n/ur5hgHwH08e9M23 5mq68N5qDhsCPl/QG/FPpUAhVD27NuzZxG/oA/oB/YB+Qn/Be5Jxwb6l7RkyO/L5am26pEgZo3tuqxSF f7c3o/dXFiL0JU9Dxyh94ZQ64VBRhp9+rs5/tzc5vb I7MJ5Tf6l4Yjqn6/RhY2h6kEEzoLxhtlvsT/1zvLodPIeml5Jdvo+8eWP5f0m/3Cea7Zc68ylefFWyDU Ew6/ygx8Kxi7+DK03kvh/jJMwft72Iwq8kgOuoRA6orbRiKp/K76fqme3nVpN3Q9wfn5Zbfio08h16D0 7DgDiXwT5tfR/xKuDRTHm9xJaKOUffELv84sM2BIWf vw+jHlN9SPhCyb6gqti8faV/4dGhB693+FcG/7o2IN1ZSD3Rr7b+S/8q+yj9q+wLPXyOpX+4z2Ky0O+j M17m5X8E/KYJp2W9c4s9djH/IokKrEDr8Up3Mv5L26LroC2kijZaB8hJ7SH493ZfD/yk+eReNp9qrQyx afpX+mm3mQ1qirVB1L6/sL2989957JsI/6Z/tY+hH9 AP6DF/07/K4/Ww7yKKerhVs923qbN45ysoH2iritK8n+tb2uQUSpg30u96h25GD7Qg/1l11Zesk/d9w/ dBS/9qPacsDr+x9oPs+Bm0kFi63/pv3nyu57+c56/h+7Uj78EvP/L74D5+/OdZGQZ4jl5ex++Xhs0DBP +Tr+t5fNaZ/D87eXyV09CD6cq/CbcSL7cfcG5mTz/t /Ieqv4628OmU0i0clZ6+JhDye53EvAvf74kmoXoYB/Zwe1HTleqUxr0el0uttI048vJiqj8a/vFeOI5L G5QZ0Ym4F+hi48uOz4nS/bm35V/V/c/BG52DEiXJwc3j8y2Wtln4Dm+qbJv+1VXHp1/Me6kkg8K/lc+a 9K+sjk+/p3+KPiW2hseev6+qB4lz3rztS/Vq9VcLZ4 XFy/n2Lf06/kEw9KGu2L1Fk6H0uwpZBq1Em7Uy7Go235iWVcSjpjX6n2UN2GD8rX3CP1D/8SreDt/uGX +V99DO/UZVl1vouz3Y72YgAYtI2cX54QTojf89drekni96n63K/YB+QD+hP+uVJ3+6a68ieK9ra16jI/ SFeDsjD8Ouea2yE8sAlJ9AqgRunP/oA/oB/YB+Qn/4 WNcTv+KH1wdea9sfdx8E6ljbt3nuxg4p1Ne7Se1GVl2w9R0Y/yr6V9G/iv5V9K+hf+2CvkHfoD/xKo74 P0b1nAS+yhF/5Yi/csRfOeKvHPFXjvgrT/+joqo6AtowzH+hvYb2+nn+up/nr/aAK4Ir9FU+OtrraK+j bW03Byorcyahhj618+hfR/060pnuk8O9+J9pihW54W 8/3/h6y17j28S+Y9xO4ES85E/VeezCMfRoL+OydYZ3qralENc/od0VszW1Zq4U/nw/speXTnqg4rs8NT qM5+Ij1wovlWRh2vNaKh34relJ9ir0txlg8MthG/xJgiGA91XjhRG5Kn78g4A+Itneuia7QZx6C/mrfQ w9+dxajxn3t7O/I9Ke1b2w5QzY+CtH/JUj/soRf+WI v/MV9KsJkvT7ZuNjbE048eh4D+/18Xs9+GpNF7x6Cy//avlUDv/K07+v05zp5G56rmFQ2+CzU0G6seNK T/+ypaCcNP4ssLndlyL0SksXmTCow//lQqC0lz247OLyziap0p/6deJF+3X6t1/n+duv8/gdU4Mo2V/o z/qBwv7l5h/Dt/d2+EpbQdvf3R17oA4jN+gVeoPeoH foHfoOfYc+oA/oB/TBylVL8qd4FF3pr7oz59d/0uXn9+Vf6Ro/XTK+buaxb/6tL/5yk3x80Z9rzLnj/l BH4cZsJ9348L8A/l3+ldZ+v4Bqgbw0ZpH8Z1q40y/IA777t7x/GnX/N3/VZ/3twtaKteIM3+O4hOXPGL k8zxux79P++0qpP5uhgK2r7I94Cp3alywhQ1nVz/2r O+9iHq/u510bjy7O3g++zuu/N1+JYMZfJ8vp7l8QtU0R/Auov6it/Tto0hIHe5L2LM9vAn6r590A/O16 0sG0uabyerlq81ntspmo9qgcri4w0Zs8rl/61YLx9R0y8/tgx/fBju+OHo8SE75Mlaoj5Sf+4IQ3yGC1 ETx3oV2ex2yU93WO50Dm9qt4lj46D7+Pup/fM92Qqy Rh2yN3iP40h+6Hn+zeoe/QB/QB/nL1an3R6mgcxr/fy3q/oG/QN+ynUnEOc1E1+mis4Zt7Ua/QO/Qd+g 59QB/OU13KwOvLt6BRF0Z4Cz03TVa/9eAu7Ite+b4IwjVvc8/Vw/D7fN9P/fl+1ON8P+rRoe/QB/Rxnm tx+I2O+Pae/Ketan+WcIH40Oly9Rf1Epd2Uc0ysG6xkNg Hv+hZ/qHr6S629A7kY5P/irXn+SvFj/Wk79a/FhP/ipSv/irXIuSv/I8zniz/D8rdzwJ2JB/yvU5+asc 66sn5UdN/irHZ/FSqQ20a4vctE6mb3/+jGCx8748V+cYeoVeobelz/NYe5XU9nBuVY2am59Zsn/d22pv jtXlX+19W9yQnbuSK/vE8q/QklEaqSB7Eq3Zb8/Kfo evVvAnM0b/yr6L9K+jBk98mtx2+I2R/pXm/rhLPgsS2HYaZzuP5+rQB/QB/fn+J7wLh3Wxbb6f0/032n qqCuCSykclr8UV5TT4Pl/P/Nv1jg2QQ65/cuo2Wh1HodTy3Hu5Y/rxrA9R+wfr+SqiMuPvpn2Aal1Jfz 5Xhh5Pod6Lco5Far7Dyb9TXMq5VoV9Yi5EkIzNLscg u6P2D+ncnW6rBaZO+wcD+wcD+wcD+wcD+wcD+wcD+wcD+wcD+rdZ5L211M/7b+h5/j4g0LsmD/rAedBe FQfY9Q2/Ko/Ys8g9uJluJdlPgSAuNP/up5nahm2G1daG97U86KMb4S6H1I7C1D4S1E9Xv8Nm0/3wwz8H +GbTriGbdgM4IDI/FoSNCl7dqF+Fn/x93UWFOtaoSA 8V4K8C/FWAvwrwVwH+NfXtFmwuWF3S/YK+Qd+gF+xGbvIurYxqJYo4G/vUgW0I6CyY/ymVRzC1bfR/Fe KbMntWgC0Y0CvF/dmCXtI0akM/FaHQK/PPWjw4MUz4F4AqLDvU9Q76T7Kf8KjT/daEH7AZkN8RbgTfvN M5D8ctbqI6FQ3YT0KW/c0708O/Uemc4YfB/ioGxvPA eAZ/FeCvAvxVgL+Rok9tcUggb6HfnZNMJ616Hy73iiQ392g1/iZ/il0E5qswYwK/pXXsj0+S/NU+9u27 IrPQ9ip3/NtI/qrOOR5/DUAqWcveFq6neY8z5X2L+KtR/ZNi0eOUhKIp9nA2Ss4Gj/OqwXrjQgbVdl5W 6+p9Giu5Xi8a5TScZsQI7Em7GzfXntebsXi1Ev5227 jn+5GaUa1Wx9Gu3It8Eb/QO/Qd+g59QB/QD+lY7JPNs3Kk+LohZ//ZcWAUZBjwz7NGqVfK/il1kBP4A8 nnQVk7a8/pGV7F9lye+LvEFhzKq5tlWp8y+a6x/KutX/tDs3+Bk8Fx5W26Mld3C+f5O+FiOkzLb9l39z c5jxr1NYdz56ddVu/oYH8Yz4FhDCSd/epD2lFHl0i5 Tv4qx/bir/axXuc3+vBaY/JWrLyHgH2FLwO/ZZG/ud+NfUC5pKPrk1/K3D/jNqVkzr+hi6/LeaEnnmFo 4n3ifLh/ziT75mYbtNTmug0hS+WcKv/Y9nxsw3ft41xJaiIw8Ax+MkM7hvLjEMc37MXEkz0pF0MPlY1p W53l1CY2hl0hV4iUn/FI+fsTjzTsxCMNP/FII/mrOj 7xSMNPPNKo+Ck7yXbIIfCyZlirHx2deFGs5LnQ63O+h75W5ZdD/UEfqNkU3BA2snHlW+3qf25fInA01j vFpVFN8hk6I/Hto6N/tC7C7PdD/XZJmwSJUh5oR6SD5Kc4QC865btLzlXN4I38Ah5Gv/W1LP7hZa68Bw P+1YjzvXvg++EX447bXc+jCOgD+oB1bA8r1Z8EMZ/n EeGv5Af+s3u1k6VbQtk/07+p9CqDR9m/FRg68PLX5b2nfSxpk98Z/mrWsW/OZCR/HKAvf4wxsX/lM2Kc /ZIj+StP/Aozgr9U/mof++QvDxNGWNeYilUZk9F44e9IsDh/yj7N+Zn7EywFZ4ji/PKvkoMaxV+tvgB/ KjSvowQe4cx5mM8/T1dmsRGUNeiFrnqlmcNX5aMeQ1 O/UhkM27wHE49EJetEx3og1/pOBJ6F6ctB/+pKffZvHT9+47yOPzmvs/93XifebKZ/MolJF7yBx++h8z rfQ+d1+Vi8xl2oP/zVbCfebLbzPJrFX+Ym8EiIj5sfvkr7vlz+aoK/muCvZvFX+zsD22IjZ4BI5Obdl+ A8E/e36BW3d8w8/ZyBqt9wtf+a4K8m+KtZ/FX+Xv0c G/JKtxW2yaY60Hr5ON0RQ1Pu9O/xD939wV7D4RqS/AOJdwGSJ58vQgO14AF/IuRqLDK4Au3gf4+b2qHv 9Gr8Da0MqaI/oZ9HD/5qgr+ugw7CdkQZkYbbJkvDbCxo3DCzVs9e/irPg/419K+hfw39a+hfQ/8a+hf5 bsjaM90pt2yHpkKT/2oi/9VE/quJ/FcT+y2q4k8K5N +rqT15bh3kKy/MSU4fnkxLZ/mvJvJfTeS/msh/NZH/aiL/1UR+tzdZ5b14cdT0s91WerF15azQ0f58ah P5m07m3k0ym1r6M6trTk54+/E3Zp/GWg02iaAwSTyN27Q9Tlm8YF8xBGyaPykSZS1J15TR/tU+hr5Dj/ Chinese/lynne/lynne/gaGbZ3LI17+bJsMv5kAA+jRvwPtHWjv RPqP6mwSy6Tstpc9PmxVaRdv4M7d/GdObf6C3JwLV4S/+Z99K492C3a24q/z7D+f80VbiAc/Sj8h+avl D74mm1FljIivyHmgv6m/lynne/mhV/wfwen489A/wNxF/N4q/qGPp5/JZ53n/p0F8ZH97k6EOmElZ3omM1 EPe3EQSGBCIT0VR5twgZmHw0QRiZuTkdD3kSlhm0z/ wJsZKBRMSJccgFrOuSfLNF4yTpgPDPQASKKYSmUXIZkRJ0Lr/vVC/puMt6ARGGTKTNtoDj23BL+Fvgf8 2K5q41fiu0EVcpxH04yu+/e1ilx5X7yKtUQW0GVQEa4wlPm7R59L9ke4bEnSD1IEajFI1t4MaqXPDK5K LvyK+VtIbyClZvpA7S5wpjT+GYkveZn8JzKK//xBOf 8SLQ6gPNrs6K1/GQ2kqQFu3nDwuAupF6Zq7cNeZMVCNvphEMo+Q7HBAsQ1vrkk539K9cUHjAE6Hibp50 g9Fi9dY2HQ88Co1Qq88Z5sVj8bDRVmpmnJeGbMAXemCA5fi63TBWvZ4PngxrUax5ToW/CWdnG3lpj6tv 4IEOWIHLOGKSWWA04LY7QKXPNJHMhde7Yj/9luw3rX 31DEUTKSLQDWGbNOBO33nHoE1MYGjNkuCi1RnRhYfRUFYIcPzTjQ5cPbQvlEV1twymd6ACv9ulTarEVC 9Ttb3JR1iJSo4jeBICoIWRCtxRrjbLA5Bq2CyPJruLnMv0KFREOOJssF3lAu+8zsR/bRi6WpxLJpnSkG zvsy+PxvM3Z7Z9ZjB/Gza7F11iXlApp2RI2GOlvodJ xau8y1tO+xW1zQL0UJFjw0Wp+qB/OFScmrQATjiNH8r5ydMgwc0UyurGHVWcJMWfYlYwiKNwftOVzs3Q IP6JgvJwZrqlfu49mJcPMxwqdcDjJokst3CgPNVv0DCWonqks1IojAvN8i3JRZVGFF8oGGB8hPNyp9MW dSnWV6HnsI/pdCjp33w5uB6BfreyLA2huq8U6NZe7Q gl+ZPtFQZxWx4EmLHeIvm28ALHBg18m3WLH3+10CBxPdj6c8igfr6kt6/C2c69LuXkEb10jfoMFDPLKY F4yVzSbp9mQ+JiR61EzB7Ev3jiXmy0/LJNSWkAXwVRWoV3TXoEP5nTZC3zOIwstjwZA4FlnO116oDAmO hAcvDLxL3Ch6yYnO5HaZQT6HzAn34ooHJvSjXtibha Z2LskfCDPg4quJ34naU/7Lpqlbb+FHdSZWSlRAoLD9XDWIWvOcoZZyRCDSYiLqFA4s9p1N+BiBARIkpE iRgRI+HInKRnBGR4BNdFwOMjEEK6JVJumI/ZWHg7OucTxtGD0XSSPA29eb6ap3K5CfmGC3fFUFedUQFy KSAkyNYYndQX5nDCdv009XyrewiuHBAsr8B3WpG810 p70H3lGLq0qRvSlCAyUZaw/pOU95/bpZ7c5x7kGq0/SXv/Xi86XaUav5N6/pPU95/kvv8k+f0n2e8/SX //Nq39GcZwHuPFySPQxS2qQAbm80AtYDuFm3UgkBJFiEttlRUiIMaw2RwGOnp7wxWEifS2WtlSk219WC prdNJwMCtOnNaJbFBqNYRB5YPEFqSuZX+d2F1gtnOz vO9EhPG8HOHnINfOjQeC3uJvQGvkDWr7sxSQcu0paIyRciV2L0w+/IjyUpjQnDhntHesmMYHuHNJ7kE4 FmEc2ygnui2+SGLH2mLbm2l+S5KHj+DnZxO+naoB85tNkwctb/4jKBElYkSMiBNxIvSRkCmjtRlEgsgg MojgfaFVPNwSMqF++VWCjBktU+fOkgbQp1qyyXyXKs 8RlAiejZlYv/o0M+tGk6oCfADFjNPC0y3r0S9GYUb1l4L/V5KuDSM8fLpbZ9mfzpY2hZfXk6f5RqcP6c DfHZ9LTCPjLfrq3k6jdn9xFqlA52Ly+xR50AkG/YogayvlfqU+d2cuq6gwQMxp+9Q1BNUMEdg8+0fwh+ fDhTaU8URs661ba0+p9/DxU7Zeq/6andapavm6D94v Cs4gSLtbyIzzrKb2VbkC/s+XSToXy7GU/3XG+zbLfhL3oh08hvNKd9WzdAYKD/aAXXxisSuy+ESJ+s/i H90GBjhMW0/xxkKXI2cAgQ4n61+dJM+2+GO1dkRlcYe1SCS20fxu4yLvQL+9WmVO/v0alEmVNla2OOGq 35Z5+epjd38ayTfhOB5ZewxnB9CiYErFmUMN+TdaJe bmNKocS5tp6uE3EYixsSnVTFZdgsVxLDIKyme5pbyZ4S/7j7tFSlXTpAKkkjDDyhAFRQ8i3N1PL8fg/Y 5YpHHd3RZD8moBCeXXEjq5DWVsKBQCiGdxfR1N9drETVWlSchah+Hr0OkWjpBqZHbIXtPtNQSXV3t0aJ LBK1cy/pjVXi7P9q/8d4YGReUkRfrE8dhs39gT52Wh Aag2SHF28to7M3M+wbTDBpM742oQ/tytOF2i78D4nSebj3dNQM+MTr155C0QYp9g3T1plr9jOPPIfKwM DIAGNOSTIC RADIOLOGIC TECHNOLOGIST/lh2Se/21XDC0zZAw/omcy1X+xeZnrfy+dmex/tgD6yLDqqI/FSJPxt6aI/0kdZcb/IpUy5X/RdJnz [file] 0lQzS9D83/+89v3//2l4ukTt28+682K26j8It/fvv+229+9+79h28+/lGp178/5otfff/29vb+u+8/fv Vwb8l40t9+/+gu35446y5dfex22rf/llv8mGCcl8Y2 b779/sPb+6//+ePXv/kvfnY/h++wkecy57t/fnv35T/2Pr7uqyx/9PW7b9++/O43v/3i/teeux2KNo+/ vv/i7h0YkcO+++rdLz+7N1S/Rxgm1M4+tiiFfnve5gyxw7/56ydoBd6/6kLjy17/8e0/dBx6tu2+vH31 3fff/uq/+OftE9z//PIvf/73P/z0px//7e1f//fblz /89D9++Omvf/f2/i//+xZNw268k//W/F/+4v4kk77xl5ueI0w/+em3B0y5++1v/vHc0jre+5Tif/rTL/ 7O57xpVaeoW/hPvwOu4/U+4FT5sx0/PAsxYZ57//52u37VJFCtmGe+/ZsxpE2F3Xc4c17ty3W9F5++hu oo5CZMfCN8z5h/+O8//cHSqnHvw5Q2fAwd0k210h2f 373/0Ll5T5m0+pMG6yf/PEb+5fprWreszf+b2tLkrO7iPhLwoPzOSRRX5RXs+rsf//zXv3/76Ye//vjJ 7B9IwNtY9d29zX66eJnnQf9+9g3+9v3bH/781x9/+n9/+ON/gehda68Sp/e+sSE/P/vG/vH9h7d/+5+v e//DX/9501Sm3VS/S03r9vQ+8eMv/zAv34nR5kRgMu UXL3/7a2LwN9saZpxu5w1i/pBHJ1kJT5Hjn16+Hel80QvsQ/v49sP/+vE//vPMefqtXZ/9X99/+9mdUe Q1+bS9/e+f/uVvf/br3Q9f/finH/74SQ/PT/Avf/ifv//hP/7ww59/miIw799+8Oef//+ZTmF//Nf//N /HiO//8pc/bf1dqBq153/5/edOC6+ImKwdcOMff/z9 //jzH37/urnPv/r1d9+8o1pa0z691uJsp9dc+fv/+Orp0U0r719+/p6Zf3aqgfIOf//60yfTCN7+7je/ efftxw+9f0LY2h/8k/nyHy4rebVg/oZfy7uva1/53xdGqjuq2Hoqxzm4kFrNj3W0a5/D1++fv4y k0uEjKFL8Nw1j0j9/sZ951hUfb0qY6u64Lncve5OL8 0re+Qzqv5/0uRT2eyxpeXgpPJkGI1TQH4sn7VoAqD2AHJvv0RdKPfpNVg8fMXpMCglpcYip1PchsfgP9 Lay9PmEtUnBXUjYiJiXwb1ARWvCqQ7jRXgFzBiPLAgS0HyGYCiPbH4IwYeANLDEG6KNPUemqYcKgJhVW I+ZpBqRN2mmwyfAXHtm6OdLWrcRNwoSMKbM0B3wMpk GRFlZ7CctE39ADNuB2ViggU0KSY8HEXtKzWoTQUdyKGkIRTzMZR+PsJcWF4zcaraODNzy8KnGDhdPFU5 xV6oXOdJTLUVWIyOUWztDeR6p49zpzQPFAYxHQJnMB1LtlThxNocprQdyJSbSAD9GeRkSZN0IQMqNUX4 VAJNGPAnWFTxBEYpPRKpJ4OgvMiaQIxPEXOONFwPEU szTvJdt2U1SXPwluKJF3ZYZiREQvcdF9JAB2KRZPNSGKP2KLT4SgThSH2IaZMlBQN3XNwPASJUKAiEGW amGdIlx0U1XVDnP4OnBUIffdHfVFJTWFxpNusxXF4kqJvrxdhvA9PewNNkVGNLQTNnFBIkKOJkWDBbC4 Umz8E7J8PjLIeBOWBNDEuALHqzWaA8c20akwWENROn ZXMpID4+WU4wp4IcCv3SMXFeSL4zxzm5CI8YsFTjAT9MBAnnuaCpT9vjjsNxCcVwWDHMGI3vO7ZmjI26 CATHERINE+FvBoQV6vbhg8syDrNfGtFFJrHGLbKTFjPIceRFCvSPJhQGWcKGE3UKE7CIGkPbAtYKUhFpJ6YlXc VXSsDLPezcPPAZVvPGV9PZUwWpTfVLRfVLPzVNkrEJ EsWJN1OMy7TYNiPYIvFR4cBxViCVAlTTEmMMUtLtC3MyIyQgQHQJTgRWEwVBMsHoZuQXHjTHKaETreBY GwHWRrNNv3IBGpQRFsPR4pOaPqMJCwGBVaBHTtUCIjYGPipmHXDVRuVNYmIJJ1MYPvCBGrOWGbSYmkXV HrVMFiVLK7QBMyLZPfCV2bSkOrDADbLFV4AmHfAKNu FJEmjoMIYQEmJWWvKWP7JEGrDYRtBLFePNnrYPXnCEDiJvG5FYMdKJKhSQ8yNyUcAJKiPME6RSBlEIRl DSHtrtPRKRTnLFSoZHm2YvNvHHKjIZApQBdmFMEjIEEnODzmFBKoOLBvMH6bFcRwWJOxIKJyAUHlSMQm PUYtrqJTZQPbMTMlPLJ1FwVhWLYwTDYbKWoyRNQdOH CfTZC4IESvWWOhJK6xOvImAFFdBsGaFjIaNPSzOAWfzeWONQUcQFUaSFOtPWEdISRbIPVbKEhnKSMiVY LdIiM2ZKJpMFJpIM9qJkSwKVVtNHF0FNDrXTSaWJVyczCTRACtDRAkUAWgZBO2HPGiELRgVNe1tyPsoY UhPye2Hz4DnRrrKKJ2Yv6FqbWvAGXaCVGFCp9Ji306 IDUgMCBSCgo+CilawBQkyXboOZLNWgR1MqWTVOLOC2A= ID Date Data Source [id number] [facility]07[facility]2020 10[facility]50[facility] YESMicroorganism XXX Cult : 2019 nCoV Real-Time RT-PCR: NOT DETECTEDTest performed using [employer] Respiratory Panel. This test is only for use under Food and Drug Administration's Emergency Use Authorization.Additional information is available on the following FDA websites for health care providers and patients. https://www.Ask The Doctor.gov/Netviewer/460566/download , https://www.fda.gov/med ia/948798/downloadPolymerase chain reaction is NEGATIVE for Influenza A H1, H3 and 2009 H1 viruses, Influenza B virus, Respiratory syncytial virus, Human metapneumovirus, Parainfluenza virus 1,2,3 and 4, Adenovirus, Rhinovirus/ Enterovirus, Coronavirus HKU1, NL63, OC43 and 229E, Bordetella pertussis, B. parapertussis, Mycoplasma pneumoniae and Chlamydia pneumoniae. Name Value Range Interpretation Code Description Data Michelle rce(s) Supporting Document(s) ID Date Data Source [id number] 06/07/2020 06:08:[address] [facility] [place] XXX-Imp : YESMicroorganism XXX Cult : 2019 nCoV Real-Time RT-PCR: NOT DETECTEDTest performed using [employer] Respiratory Panel. This test is only for use under Food and Drug Administration's Emergency Use Authorization.Additional information is available on the following FDA websites for health care providers and patients. https://www.Ask The Doctor.gov/Netviewer/287734/download , https://www.fda.gov/med ia/621651/downloadPolymerase chain reaction is NEGATIVE for Influenza A H1, H3 and 2009 H1 viruses, Influenza B virus, Respiratory syncytial virus, Human metapneumovirus, Parainfluenza virus 1,2,3 and 4, Adenovirus, Rhinovirus/ Enterovirus, Coronavirus HKU1, NL63, OC43 and 229E, Bordetella pertussis, B. parapertussis, Mycoplasma pneumoniae and Chlamydia pneumoniae. Name Value Range Interpretation Code Description Data Michelle rce(s) Supporting Document(s) Microorganism identified in Unspecified specimen by [facility] This lab was ordered by [facility] and reported by [facility]. ID Date Data Source [id number] 06/07/2020 06:13:30 PM EDT [facility] Name Value Range Interpretation Code Description Data Michelle rce(s) Supporting Document(s) Troponin I.cardiac [Mass/volume] in Blood 0.00 ng/mL 0.00-0.08 [facility] ID Date Data Source [id number] 06/07/2020 05:08:58 PM [facility] XR CHEST FRONTAL AND LATERAL [id number] RESULTInterpreted by:Emmanuel Mendiola MDINDICATION: chest pain. TECHNIQUE: AP and lateral frontal radiograph of the chest was obtained.Comparison: Comparison is made to chest 1 view 04/10/2017FINDINGS: The cardiomediastinal silhouette is normal. The lungs are underinflated but clear. Of note, the previously seen nodular density is not well appreciated on today's exam. There is no evidence of pleural effusion or pneumothorax. 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.IMPRESSION: No acute chest diseaseThis document has been electronically signed by Emmanuel Mendiola MD on 06/07/2020 5:06 PM Name Value Range Interpretation Code Description Data Michelle rce(s) Supporting Document(s) ID Date Data Source [id number] 06/07/2020 05:23:15 PM [facility] Name Value Range Interpretation Code Description Data Michelle rce(s) Supporting Document(s) Choriogonadotropin.beta subunit free [Units/volume] in Serum or Plasm a <5 [facility] (NOTE)Levels between 5 and 25 [IU]/L may indicate earlypregnancy and should be repeated after 48 hours. ID Date Data Source [id number] [facility] Interpretation Code Description Data Michelle rce(s) Supporting Document(s) Troponin I.cardiac [Mass/volume] in Blood 0.12 ng/mL 0.00-0.08 H [facility] ID Date Data Source [id number] 06/07/2020 05:39:38 PM [facility] Name Value Range Interpretation Code Description Data Michelle rce(s) Supporting Document(s) Natriuretic peptide.B prohormone N-Terminal [Mass/volu me] in Serum or Plasma 417 pg/mL <125 H [facility] ID Date Data Source [id number] 06/07/2020 05:14:23 PM [facility] Name Value Range Interpretation Code Description Data Michelle rce(s) Supporting Document(s) Leukocytes [#/volume] in Blood by Automated count 6.2 10*3/uL 4-10 [facility] Erythrocytes [#/volume] in Blood by Automated count 4.50 10*6/uL 4.1- 5.3 [facility] Hemoglobin [Mass/volume] in Blood 13.2 g/dL 11.5-15.5 [facility] Hematocrit [Volume Fraction] of Blood by Automated count 40.4 % 3 6-45 [facility] Erythrocyte mean corpuscular volume [Entitic volume] by Auto mated count 89.8 fL 80-96 [facility] Erythrocyte mean corpuscular hemoglobin [Entitic mass] by Automated count 29.5 pg 27-33 [facility] Erythrocyte mean corpuscular hemoglobin concentration [Mass/volume] by Automated count 32.8 g/dL 32.0-36.0 [facility] width [Ratio] by Automated count 13.8 % 11.5-14.5 [facility] Platelets [#/volume] in Blood by Automated count 220 10*3/uL 150-400 [facility] Differential cell count method - Blood [facility] Neutrophils/100 leukocytes in Blood by Automated count 68 % [facility] Lymphocytes/100 leukocytes in Blood by Automated count 25 % [facility] Monocytes/100 leukocytes in Blood by Automated count 5 % [facility] Eosinophils/100 leukocytes in Blood by Automated count 1 % [facility] Basophils/100 leukocytes in Blood by Automated count 1 % [facility] Neutrophils [#/volume] in Blood by Automated count 4.29 10*3/uL 1.8-7 .0 [facility] Lymphocytes [#/volume] in Blood by Automated count 1.53 10*3/uL 1.2-4 .0 [facility] Monocytes [#/volume] in Blood by Automated count 0.30 10*3/uL 0-0.8 [facility] Eosinophils [#/volume] in Blood by Automated count 0.08 10*3/uL 0-0.5 [facility] Basophils [#/volume] in Blood by Automated count 0.04 10*3/uL 0-0.2 [facility] Nucleated erythrocytes/100 leukocytes [Ratio] in Blood by Automated count 0 /100{WBCs} 0-0 [facility] ID Date Data Source [id number] 06/07/2020 05:39:38 PM [facility] Name Value Range Interpretation Code Description Data Michelle rce(s) Supporting Document(s) Albumin [Mass/volume] in Serum or Plasma by Bromocresol green (BCG) dye binding method 4.2 g/dL 3.5-5.2 [facility] al Bilirubin.total [Mass/volume] in Serum or Plasma 0.4 mg/dL <1.2 [facility] Bilirubin.direct [Mass/volume] in Serum or Plasma <0.3 [facility] Alkaline phosphatase [Enzymatic activity/volume] in Serum or Plasma 74 U/L 35-104 [facility] Aspartate aminotransferase [Enzymatic activity/volume] in Serum or Plasma 17 U/L <32 [facility] Alanine aminotransferase [Enzymatic activity/volume] in Seru m or Plasma 8 U/L <33 [facility] Protein [Mass/volume] in Serum or Plasma 6.3 g/dL 6.4-8.3 L [facility] ID Date Data Source [id number] 06/07/2020 06:28:37 PM [facility] Name Value Range Interpretation Code Description Data Michelle rce(s) Supporting Document(s) Lipase [Enzymatic activity/volume] in Serum or Plasma 39 U/L 13-6 0 [facility] ID Date Data Source [id number] 06/07/2020 09:36:59 PM [facility] Value Range Interpretation Code Description Data Michelle rce(s) Supporting Document(s) Cholesterol [Mass/volume] in Serum or Plasma 159 mg/dL <200 [facility] Triglyceride [Mass/volume] in Serum or Plasma 116 mg/dL <150 [facility] Cholesterol in HDL [Mass/volume] in Serum or Plasma 59 mg/dL >50 [facility] Cholesterol in LDL [Mass/volume] in Serum or Plasma by calcu lation 78 mg/dL <100 [facility] Cholesterol in VLDL [Mass/volume] in Serum or Plasma by calc ulation 23 mg/dl 16-42 [facility] Cholesterol non HDL [Mass/volume] in Serum or Plasma 101 mg/dL <130 [facility] ID Date Data Source [id number] 06/07/2020 09:02:29 PM [facility] Name Value Range Interpretation Code Description Data Michelle rce(s) Supporting Document(s) Phosphate [Mass/volume] in Serum or Plasma 3.2 mg/dL 2.5-4.5 [facility] ID Date Data Source [id number] 06/07/2020 09:02:29 PM [facility] Value Range Interpretation Code Description Data Michelle rce(s) Supporting Document(s) Magnesium [Mass/volume] in Serum or Plasma 2.1 mg/dL 1.6-2.6 [facility] ID Date Data Source [id number] 06/07/2020 05:39:38 PM [facility] Value Range Interpretation Code Description Data Michelle rce(s) Supporting Document(s) Troponin T.cardiac [Mass/volume] in Serum or Plasma <0.01 [facility] ID Date Data Source [id number] 06/07/2020 05:39:38 PM [facility] Value Range Interpretation Code Description Data Michelle rce(s) Supporting Document(s) Bicarbonate [Moles/volume] in Serum 25 mmol/L -29 [facility] Chloride [Moles/volume] in Serum or Plasma 109 mmol/L 98-107 H [facility] Creatinine [Mass/volume] in Serum or Plasma 0.69 mg/dL 0.50-0.90 [facility] Glucose [Mass/volume] in Serum or Plasma 82 mg/dL 70-140 [facility] Potassium [Moles/volume] in Serum or Plasma 4.0 mmol/L 3.4-5.1 [facility] Sodium [Moles/volume] in Serum or Plasma 144 mmol/L 136-145 [facility] Urea nitrogen [Mass/volume] in Serum or Plasma 8 mg/dL 6-20 [facility] Anion gap 3 in Serum or Plasma 10 mmol/L 8-15 [facility] Osmolality of Serum or Plasma by calculation 295 mosm/kg 275-300 [facility] Creatinine/Urea nitrogen [Mass Ratio] in Serum or Plasma 12 [facility] Calcium [Mass/volume] in Serum or Plasma 9.1 mg/dL 8.6-10.0 [facility] Glomerular filtration rate/1.73 sq M pre dicted among non-blacks [Volume Rate/Area] in Serum or Plasma by Creatinine-based formula (MDRD) >6 0 [facility] Glomerular filtration rate/1.73 sq M pre dicted among blacks [Volume Rate/Area] in Serum or Plasma by Creatinine-based formula (MDRD) >60 [facility] ID Date Data Source [id number] 06/07/2020 09:23:57 PM EDT [facility] Name Value Range Interpretation Code Description Data Michelle rce(s) Supporting Document(s) Hemoglobin A1c/Hemoglobin.total in Blood by HPLC 5.0 % 4.0-6.0 [facility] (NOTE)<5.7% Average risk of diabetes (ADA)5.7-6.4% Increased risk of diabetes(ADA)>/= 6.5% Diagnostic for diabetes(ADA) Glucose mean value [Mass/volume] in Blood Estimated fr om glycated hemoglobin 97 mg/dL <126 [facility] ID Date Data Source [id number] 05/30/2020 09:43:00 AM EDT [facility] DATE OF EXAMINATION: 05/29/2020 23:17 EDT BRAIN W/O CONTRAST HISTORY: Headache TECHNIQUE: This CT exam was performed using the following dose reduction techniques:automatic exposure control, adjustment of mA and/or kV according to thepatient's size, and use of iterative reconstruction technique. Standard contiguous axial spiral imaging was obtained from the skull basethrough the vertex without contrast administration and with coronalreformatting. FINDINGS: BRAIN: Basilar cisterns and ventricles appear normal. No space occupyinglesions, intracerebral edema, or any signs of mass effects are noted. Base ofthe skull appears normal. IMPRESSION: No acute intracranial pathology or trauma/injury Electronically signed in PS360 by: Magdy Navarrete M.D. 05/30/2020 9:37 EDT Name Value Range Interpretation Code Description Data Michelle rce(s) Supporting Document(s) ID Date Data Source [id number] 05/30/2020 09:43:00 AM [facility] DATE OF EXAMINATION: 05/29/2020 23:17 EDT ABD/PEL WITH ORAL AND IV HISTORY: Abdominal pain TECHNIQUE: This CT exam was performed using the following dose reduction techniques:automated exposure control, adjustment of mA and/or kV according to thepatient's size, and use of iterative reconstruction technique. Standard contiguous axial spiral imaging was obtained from the dome of thediaphragms through the symphysis pubis with oral contrast and with intravenouscontrast administration and with coronal reformatting. FINDINGS: Liver, spleen, pancreas, gallbladder, bilateral adrenal glands and kidneys areno rmal. The enteric system is without obstruction or acute inflammatory process.Pelvis demonstrates normal bladder and evidence for prior hysterectomy. Noascites. No free air. No adenopathy. Abdominal aorta and vasculature appearnormal. Musculoskeletal structures are intact. Lung bases are clear. IMPRESSION:Normal CT of the abdomen and pelvisNo acute pathology appreciated Electronically signed in PS360 by: Magdy Navarrete M.D. 05/30/2020 9:37 EDT Name Value Range Interpretation Code Description Data Michelle arrone(s) Supporting Document(s) ID Date Data Source [id number] 05/30/2020 09:43:00 AM [facility] DATE OF EXAMINATION: 05/29/2020 23:17 EDT SINUS WITHOUT IV HISTORY: Headache This CT exam was performed using the following dose reduction techniques:automated exposure control, adjustment of mA and/or kv according to thepatient's size, and use of iterative reconstruction technique. Standard contiguous axial spiral imaging was obtained without contrastadministration and with coronal reconstruction. Frontal, ethmoidal, maxillary and sphenoid sinuses are clear. Mastoidal aircells are well aerated. Osteomeatal units are widely patent. There is nomucoperiosteal thickening, mucosal polyps, or retention cysts. No destructivelesions are identified. IMPRESSION: Unremarkable CT scan of the sinuses. Electronically signed in PS360 by: Magdy Navarrete M.D. 05/30/2020 9:37 EDT Name Value Range Interpretation Code Description Data Michelle rce(s) Supporting Document(s) ID Date Data Source [id number] 05/30/2020 04:35:00 AM EDT [facility] Patient: DAKOTA RAYMUNDO Observa tion Report - [facility].VisitID: [id number] [place] [address] [phone], FRegistration Date/Time: 05/29/2020 22:16 Weight:78.4 kg (S). Height/Length:61 inches (S). BMI:32.7 PAST HISTORYProblems:Depression [Chronic].Anxiety disorder [Chronic].Bipolar Disorder [Chronic]. Additional Surgeries:Colon resection for bowel obstruction.Hysterectomy. Medications:TraZODone HCl Oral (Tablet 100 mg) 1 tablet, daily at bedtime, last dose yest. Allergies:No Known Drug Allergy. FAMILY HISTORYNegative - denies family medical history. INSTRUCTIONSYour Current Medications: Your current home medications have been reviewed. CONTINUE TAKING THE FOLLOWING MEDICATIONS:TraZODone HCl Oral : Tablet 100 mg, 1 tablet daily, Last: yest, at bedtime. (Electronically signed by Yuli Bain, P.AYoselyn 05/30/2020 04:07) Name Value Range Interpretation Code Description Data Michelle rce(s) Supporting Document(s) ID Date Data Source [id number] 05/31/2020 04:05:00 PM EDT [facility] Name Value Range Interpretation Code Description Data Michelle rce(s) Supporting Document(s) H. PYLORI, IGM ABS <9.0 units 0.0-8.9 [facility] Negative <9.0 Equivocal 9.0 - 11.0 Positive > 11.0This test was developed and its performance characteristicsdetermined by [facility]. It has not been cleared orapproved by the Food and Drug Administration.Performed at: RN - [facility] [address] [id number] Director: Ingris Marcano MD, Phone: [phone] H. PYLORI, IGG ABS 0.17 0.00-0.79 [facility] INFCE Result Units: Index Value Negative <0.80 Equivocal 0.80 - 0.89 Positive >0.89 H. PYLORI, IGA ABS <9.0 units 0.0-8.9 [facility] Negative <9.0 Equivocal 9.0 - 11.0 Positive >11.0 ID Date Data Source [id number] 05/31/2020 04:05:00 PM EDT [facility] Name Value Range Interpretation Code Description Data Michelle rce(s) Supporting Document(s) H. pylori, IgG Abs 0.17 Index Value 0.00-0.79 [facility] Negative <0.80 Equivocal 0.80 - 0.89 Positive >0.89 H. pylori, IgA Abs 0.0-8.9 [facility] Negative <9.0 Equivocal 9.0 - 11.0 Positive >11.0 H pylori, IgM Abs 0.0-8.9 [facility] Negative <9.0 Equivocal 9.0 - 11.0 Positive >11.0 This test was developed and its performance characteristicsdetermined by [facility]. It has not been cleared or approvedby the Food and Drug Administration. ID Date Data Source [id number] 05/30/2020 12:56:00 AM EDT [facility] TSYSORDER [id number] Name Value Range Interpretation Code Description Data [facility] rce(s) Supporting Document(s) Campylobacter Not Detected Detected Not [facility] Clostridium difficile toxin AB Not Detected Detected [facility] Due to the high asymptomatic carriage ra leo, especiallyin young children, the clinical relevance of the detectionof toxigenic C. difficile from stool should be consideredin the context of other clinical findings, patient age, andrisk factores which include hospitalization and antibioticexposure. Plesiomonas shigelloides Not Detected Detected Not [facility] Salmonella Not Detected Detected Not [facility] ospital Vibrio Not Detected Detected [facility] spital Vibrio cholerae Not Detected Detected [facility] Yersinia enterocolitica Not Detected Detected [facility] Enteroaggregative E. coli Not Detected Detected [facility] Enteropathogenic E. coli Not Detected Detected [facility] Enterotoxigenic E. coli Not Detected Detected [facility] Shiga-like toxin-prod E. coli Not Detected Detected [facility] E. coli O157 Not Detected Detected [facility] Shigella/Enteroinvasive E coli Not Detected Detected [facility] Cryptosporidium Not Detected Detected [facility] Cyclospora cayetanensis Not Detected Detected [facility] Entamoeba histolytica Not Detected Detected [facility] Giardia Lamblia Not Detected Detected [facility] Adenovirus F 40/41 Not Detected Detected Not [facility] Astrovirus Not Detected Detected Not [facility] Norovirus GI/GII Not Detected Detected Not [facility] Rotavirus A Not Detected Detected Not [facility] Sapovirus Not Detected Detected Not [facility] The Above results have been determined b y using the [employer] FilmArray system.FilmArray is an automated in vitro diagnostic system thatutilizes nested multiplex Polymerase Chain Reaction (PCR)and high-resolution melting analysis to detect and identifymultiple nucleic acid targets from clinical specimens. ID Date Data Source [id number] 05/29/2020 11:36:00 PM EDT [facility] TSYS[facility] [id number] Name Value Range Interpretation Code Description Data Michelle rce(s) Supporting Document(s) PROTHROMBIN TIME (PATIENT) 10.1 SECONDS 9.2-11.6 [facility] INR 0.97 0.87-1.06 [facility] ID Date Data Source [id number] 05/29/2020 11:36:00 PM EDT [facility] TSYS[facility] [id number] Name Value Range Interpretation Code Description Data Michelle rce(s) Supporting Document(s) PARTIAL THROMBOPLASTIN TIME 25.5 SECONDS 21.4-30.2 [facility] ID Date Data Source [id number] 05/29/2020 11:35:00 PM EDT [facility] TSYSORDER [id number] Name Value Range Interpretation Code Description Data Michelle rce(s) Supporting Document(s) MAGNESIUM 1.9 mg/dL 1.8-2.4 [facility] ID Date Data Source [id number] 05/29/2020 11:35:00 PM EDT [facility] TSYSORDER [id number] Name Value Range Interpretation Code Description Data Michelle rce(s) Supporting Document(s) LIPASE 336 U/L 73-393 [facility] ID Date Data Source [id number] 05/29/2020 11:35:00 PM EDT [facility] T[facility]ORDER [id number] Name Value Range Interpretation Code Description Data Michelle rce(s) Supporting Document(s) GLUCOSE 83 mg/dL 74-106 [facility] BLOOD UREA NITROGEN 17 mg/dL 7-18 [facility] CREATININE 0.8 mg/dL 0.6-1.0 [facility] SODIUM 139 mmol/L 136-145 [facility] POTASSIUM 4.5 mmol/L 3.5-5.1 [facility] CHLORIDE 104 mmol/L 98-107 [facility] CO2 31 mmol/L 21-32 [facility] CALCIUM 9.0 mg/dL 8.5-10.1 [facility] ANION GAP 4.0 mmol/L 5-12 L [facility] GLOMERULAR FILTRATION RATE 84 mL/min [facility] GFR IS CALCULATED IN mL/min/1.73m2 KYLEIGH L FUNCTION: >90MILDLY DECREASED: 60-89MILDY TO MODERATELY DECREASED: 45-59 MODERATELY TO SEVERELY DECREASED: 30-44SEVERELY DECREASED: 15-29RENAL FAILURE: <15 AST 12 U/L 15-37 L [facility] ALT 20 U/L 12-78 [facility] ALKALINE PHOSPHATASE 77 U/L 46-116 [facility] pital TOTAL BILIRUBIN 0.3 mg/dL 0.2-1.0 [facility] TOTAL PROTEIN 6.3 g/dl 6.4-8.2 L [facility] ALBUMIN 3.4 gm/dL 3.4-5.0 [facility] ID Date Data Source [id number] 05/29/2020 11:31:00 PM EDT [facility] TSYSORDER [id number] Name Value Range Interpretation Code Description Data Michelle rce(s) Supporting Document(s) URINE COLOR. [facility] URINE APPEARANCE CLEAR [facility] SPECIFIC GRAVITY,URINE >= 1.030 1.001-1.035 [facility] URINE LEUKOCYTE ESTERASE NEGATIVE NEGATIVE [facility] URINE NITRATE NEGATIVE NEGATIVE [facility] PH,URINE 6.0 5.0-9.0 [facility] URINE PROTEIN NEGATIVE mg/dL NEGATIVE [facility] GLUCOSE (UA) NEGATIVE mg/dL NEGATIVE [facility] URINE KETONE NEGATIVE mg/dL NEGATIVE [facility] UROBILINOGEN NORMAL(0.2-1) mg/dL 0-1 [facility] URINE BILIRUBIN NEGATIVE NEGATIVE [facility] URINE BLOOD NEGATIVE NEGATIVE [facility] ID Date Data Source [id number] 05/29/2020 11:19:00 PM EDT [facility] TSYSORDER [id number] Name Value Range Interpretation Code Description Data Michelle rce(s) Supporting Document(s) WHITE BLOOD COUNT 5.8 K/mm3 4.0-10.0 [facility] RED BLOOD COUNT 4.34 M/mm3 4.00-5.50 [facility] l HEMOGLOBIN 13.0 gm/dL 12.0-16.0 [facility] HEMATOCRIT 39.0 % 36.0-48.8 [facility] MEAN CELL VOLUME 89.9 fl 80-96 [facility] MEAN CORPUSCULAR HEMOGLOBIN 30.0 pg 27.0-31.0 [facility] MEAN CORPUSCULAR HGB CONC 33.3 g/dl 32.0-36.0 [facility] RED CELL DISTRIBUTION WIDTH 12.9 % 10.0-14.5 [facility] PLATELET COUNT 236 K/mm3 172-450 [facility] MEAN PLATELET VOLUME 10.5 fl 9.0-13.0 [facility] pital GRAN % 55.6 % 50-80.0 [facility] IG% 0.2 % 0.0-0.2 [facility] LYMPH % 35.6 % 25.0-50.0 [facility] MONO % 6.0 % 2.0-10.0 [facility] EOS % 1.9 % 0-5.0 [facility] BASO % 0.7 % 0.0-2.0 [facility] GRAN # 3.2 K/mm3 2.0-8.00 [facility] IG# 0.0 K/mm3 0.0-0.2 [facility] LYMPH # 2.1 K/mm3 1.0-5.0 [facility] MONO # 0.4 K/mm3 0.10-1.20 [facility] EOS # 0.1 K/mm3 0.0-0.5 [facility] BASO # 0.0 K/mm3 0.0-0.2 [facility] ID Date Data Source [id number] 02/05/2020 10:10:00 AM EDT [facility] Name Value Range Interpretation Code Description Data Michelle rce(s) Supporting Document(s) SARS CORONAVIRUS 2 RNA [facility] This lab was ordered by [facility] and reported by [facility]. ID Date Data Source [id number] 11/12/2019 08:51:00 PM EST [facility] 1 OrderSheet [facility] Emergency Department [address] [place] [address] Phone #: ext- [phone] 11/12/2019 20:48 Patient: DAKOTA RAYMUNDO [facility]#: [id number] Sex: F : 1990 Age: 29yWEIGHT:83.4 kg (S) HEIGHT:61 inches (S) BMI:34.8ALLERGIES: None, ToradolCHIEF COMPLAINT: abdominal painDIAGNOSIS: Gastroesophageal reflux disease, GastroenteritisLAB ORDERSOrder Description Priority Entered Acknowledged InitialedCBC w Diff STAT 21:21 11/12/2019 21:26 Eleanor Aguayo Riccardo Scott R.N. M.D.;CMP STAT 21:11/12/2019 21:26 Eleanor Aguayo Riccardo Scott R.N. M.D.;Lipase STAT 21:11/12/2019 21:26 Eleanor Aguayo Riccardo Scott R.N. M.D.;Urinalysis (Clean STAT 21:21 11/12/2019 21:26 Olivier,Catch) Ryan Webster R.N., M.D.;Lactic Acid STAT 21:22 11/12/2019 21:26 Eleanor Aguayo Riccardo Scott R.N. M.D.;CRP STAT 21:22 11/12/2019 21:26 Eleanor Aguayo Riccardo Scott R.N. M.D.;DIAGNOSTIC STUDY ORDERSOrder Description Priority Entered Acknowledged InitialedCT Abd PEL W/ IV STAT 22:03 11/12/2019 Ack'd: 22:04 22:38 Olivier,Contrast Only Ryan Webster Scott Scott R.N.(Oxygen?(No)) M.D.; R.N.(IV?(Yes)) Reason for Study: ABDMINAL PAIN, PANCREATITISMEDICATION/IV/DRIP/FLUID ORDERSOrder Description Priority Entered Acknowledged InitialedNS IV 1000 mL 21:22 11/12/2019 21:32 Olivier,Bolus: : Bolus 1000 Ryan Webster R.N. 2 OrderSheet [facility] Emergency Department [address] [place] [address] Phone #: ext- [phone] 11/12/2019 20:48 Patient: DAKOTA RAYMUNDO Sex: F : 1990 Age: 29ymL (X1) M.D.;Phenergan 25 mg 21:22 11/12/2019 21:33 Olivier,in 50 mL NS, give Ryan Webster R.NYoselynwide open: 25 mg M.D.;(NOW x1, HIGHALERTMEDICATION)Ativan IVP 1 mg 21:55 11/12/2019 22:03 Olivier,(HIGH ALERT lAysiarinRyan R.N.MEDICATION) M.D.;raNITIdine IVPB 50 23:34 11/12/2019 23:39 Olivier,mg with Dextrose Ryan Webster R.N.Intravenous 50 mL M.D.;(D5W)Protonix IVPB 40 23:34 11/12/2019 23:39 Olivier,mg with Dextrose Ryan Webster R.N.100 ml spike bag M.D.;(D5W)GENERAL ORDERSOrder Description Priority Entered Acknowledged InitialedNPO 21:21 11/12/2019 21:26 Eleanor Aguayo Riccardo Scott R.N. M.D.;Saline Lock 21:21 11/12/2019 21:26 Eleanor Aguayo Riccardo Scott R.N. M.D.;[Electronically signed by Munir Aguayo R.N. (00:27 11/13/2019)][Electronically signed by Ryan Webster M.D. (00:29 11/13/2019)][Electronically locked by Munir Aguayo R.N. (00:27 11/13/2019)] Name Value Range Interpretation Code Description Data Michelle rce(s) Supporting Document(s) ID Date Data Source [id number] 11/12/2019 08:51:00 PM [facility] 1 Medication Reconciliation Report [facility] Emergency Department [address] [place] [address] Phone #: ext- [phone] 11/12/2019 20:48 Patient: DAKOTA RAYMUNDO Sex: F : 1990 Age: 29yWeight: 83.4 kgHeight/Length: 61 in.BMI: 34.8ALLERGIES: None, ToradolThe patient's Home Medications are listed below:STOP TAKING THE FOLLOWING MEDICATIONS: Ibuprofen Oral (600 mg) 1 tablet, 3x a dayCONTINUE TAKING THE FOLLOWING MEDICATIONS: clonazePAM Oral 0.5 mg, daily, prn Gabapentin 0830 PRN traZODone HCl Oral 200 mg, at bedtime Trileptal Oral, bipolarThe source(s) of the original Home Medication information:Not obtained.The following Medications were given to the patient in the Emergency Department:NS [IV] IV Fluids bolus 0, then 1000 mL/hr, administered: 11/12/2019 9:32:00 PMPhenergan [IVPB] IVPB bolus 0, then 25 mg 200 mL/hr, administered: 11/12/2019 9:33:00 PMAtivan [IVP] IVP 1 mg, administered: 11/12/2019 10:03:00 PMProtonix [IVPB] IVPB bolus 0, then 40 mg 200 mL/hr, administered: 11/12/2019 11:39:00 PMRanitidine [IVPB] IVPB bolus 0, then 50 mg 200 mL/hr, administered: 11/12/2019 11:39:00 PMThe following Medications were prescribed to the patient: 2 Medication Reconciliation Report [facility] Emergency Department [address] [place] [address] Phone #: ext- [phone] 11/12/2019 20:48 Patient: DAKOTA RAYMUNDO Sex: F : 1990 Age: 29yProtonix 40 mg tablet,delayed release Take 1 tablet once a day for 30 days -- Dispense 30 tablet.Refills: 1. Substitution permitted.[employer] [address] [place] [address]. .Zofran 4 mg tablet Take 1 tablet four times a day as needed for 4 days -- Dispense 16 tablet. Refills: 0.Substitution permitted.[employer] [address] [place] [address]. . -- Ryan Webster M.D. Name Value Range Interpretation Code Description Data Michelle rce(s) Supporting Document(s) ID Date Data Source [id number] 11/12/2019 08:51:00 PM EST [facility] 1 Medication Administration Record [facility] Emergency Department [address] [place] [address] Phone #: ext- [phone] 11/12/2019 20:48 Patient: DAKOTA RAYMUNDO Sex: F : 1990 Age: 29yWeight: 83.4 kgHeight/Length: 61 inBMI: 34.8ALLERGIES: None, Toradol Date/Time Medication Administered Medication OrderedStart NS [IV] NS IV 1000 mL Bolus: : Bolus 189211:32 11/12/2019 Dose: IV Fluids mL (X1)Munir Aguayo R.N. Rate: 1000 mL/hr over 1 hour(s)---- Dispensed: 1000 mL bagStop Site: #1 right AC00:27 11/13/2019Munir Aguayo R.N.Start PHENERGAN [IVPB] Phenergan 25 mg in 50 mL NS,21:33 11/12/2019 Dose: 25 mg IVPB give wide open: 25 mg (NOW x1,Munir Aguayo R.N. Rate: 200 mL/hr over 15 minute(s) HIGH ALERT MEDICATION)---- Dispensed: 50 mL bagStop Site: #1 right AC22:04 11/12/2019Munir Aguayo R.N.Given ATIVAN [IVP] (LORAZEPAM) Ativan IVP 1 mg (HIGH ALERT22:03 11/12/2019 Dose: 1 mg IVP MEDICATION)Munir Aguayo R.N. Site: #1 right ACStart RANITIDINE [IVPB] raNITIdine IVPB 50 mg with23:39 11/12/2019 Dose: 50 mg IVPB Dextrose Intravenous 50 mLMunir Aguayo R.N. Rate: 200 mL/hr over 15 minute(s) (D5W)---- Dispensed: 50 mL bagStop Site: #1 right AC00:27 11/13/2019Munir Aguayo R.N.Start PROTONIX [IVPB] (PANTOPRAZOLE Protonix IVPB 40 mg with23:39 11/12/2019 SODIUM) Dextrose 100 ml spike bag (D5W)Munir Aguayo R.N. Dose: 40 mg IVPB---- Rate: 200 mL/hr over 15 minute(s)Stop Dispensed: 50 mL bag00:27 11/13/2019 Site: #1 right Munri Frank R.N. Name Value Range Interpretation Code Description Data Michelle rce(s) Supporting Document(s) ID Date Data Source [id number] 11/12/2019 08:51:00 PM EST [facility] 1 General Instructions [facility] Emergency Department [address] [place] [address] Phone #: ext- [phone] 11/12/2019 20:48 Patient: DAKOTA RAYMUNDO Sex: F : 1990 Age: 29yGastroesophageal reflux disease. No esophagitis.Acute norovirus gastroenteritis.INSTRUCTIONSDrink plenty of fluids. Avoid alcohol and NSAIDS. NSAIDS include aspirin, ibuprofen (Advil) and naproxen(Aleve). Avoid fatty, fried/greasy, lactose-containing (such as milk, cheese and ice cream), salty and spicyfoods.Warnings: Further evaluation is necessary. It is very important to follow up with a healthcare provider.GENERAL WARNINGS: Return or contact your physician immediately if your condition worsens orchanges unexpectedly, if not improving as expected, or if other problems arise. SPECIFICALLY, return ifyou develop pain in the abdomen, pelvis, testicle, back or shoulder, fever, vomiting, the inability to keepfluids down, blood in vomitus, blood in diarrhea, fainting or lightheadedness.Your Current Medications: Your current home medications have been reviewed.STOP TAKING THE FOLLOWING MEDICATIONS:Ibuprofen Oral : Tablet 600 mg, 1 tablet 3x a day.CONTINUE TAKING THE FOLLOWING MEDICATIONS:clonazePAM Oral : 0.5 mg daily, prn.Gabapentin 0830 PRN*.traZODone HCl Oral : 200 mg, at bedtime.Trileptal Oral : bipolar.Prescription Medications:Protonix 40 mg tablet,delayed release Take 1 tablet once a day for 30 days -- Dispense 30 tablet.Refills: 1. Substitution permitted.[employer] #[address] [place] [address]. .Zofran 4 mg tablet Take 1 tablet four times a day as needed for 4 days -- Dispense 16 tablet. Refills: 0.Substitution permitted.[employer] [address] [place] [address]. .Follow-up:Return to the emergency department as needed. Follow up with your healthcare provider in two dayseven if well. Call for an appointment. Reason for referral: evaluation and treatment. Summary of care 2 General Instructions [facility] Emergency Department [address] [place] [address] Phone #: [phone]- [phone] 11/12/2019 20:48 Patient: DAKOTA RAYMUNDO Sex: F : 1990 Age: 29yprovided to patient via paper.Understanding of the discharge instructions verbalized by patient. Expected course of illness, dischargeinstructions, activity level, diet, prescriptions x2, follow-up appointment and risks and benefits of treatmentreviewed with patient and understanding verbalized. Agrees to plan of care. ADDITIONAL INFORMATIONViral Gastroenteritis (Adult)Gastroenteritis is commonly called the "stomach flu," although it has nothing to do with influenza. It ismost often caused by a virus that affects the stomach and intestinal tract and usually lasts from 2 to 7days. Common viruses causing gastroenteritis include norovirus, rotavirus, and hepatitis A. Non-viralcauses of gastroenteritis include bacteria, parasites, and toxins.The danger from repeated vomiting or diarrhea is dehydration. This is the loss of too much fluid fromthe body. When this occurs, body fluids must be replaced. Antibiotics don't help with this illnessbecause it is usually viral. Simple home treatment will be helpful.Symptoms of viral gastroenteritis may include: 3 General Instructions [facility] Emergency Department [address] [place] [address] Phone #: ext- [phone] 11/12/2019 20:48 Patient: DAKOTA RAYMUNDO Sex: F : 1990 Age: 29y Watery, loose stools Stomach pain or abdominal cramps Fever and chills Nausea and vomiting Loss of bowel control HeadacheHome careGastroenteritis is transmitted by contact with the stool or vomit of an infected person. This can occurfrom person to person or from contact with a contaminated surface.Follow these guidelines when caring for yourself at home: If symptoms are severe, rest at home for the next 24 hours or until you are feeling better. Wash your hands with soap and water or use alcohol-based dental specialist to prevent the spread of infection. Wash your hands after touching anyone who is sick. Wash your hands or use alcohol-based dental specialist after using the toilet and before meals. Clean the toilet after each use.Remember these tips when preparing food: People with diarrhea should not prepare or serve food to others. When preparing foods, wash your hands before and after. Wash your hands after using cutting boards, countertops, knives, or utensils that have been in contact with raw food. Dry your hands with a single use towel. Keep uncooked meats away from cooked and wgyuw-by-ped foods.MedicineYou may use acetaminophen or NSAID medicines like ibuprofen or naproxen to control fever unlessanother medicine was given. If you have chronic liver or kidney disease, talk with your healthcareprovider before using these medicines. Also talk with your provider if you've had a stomach ulceror gastrointestinal bleeding. Don't give aspirin to anyone under 18 years of age who is ill with a fever.It may cause severe liver damage. Don't use NSAIDS is you are already taking one for anothercondition (like arthritis) or are on aspirin (such as for heart disease or after a stroke). 4 General Instructions [facility] Emergency Department [address] [place] [address], [place] [address] Phone #: ext- [phone] 11/12/2019 20:48 Patient: DAKOTA RAYMUNDO Sex: F : 1990 Age: 29yIf medicine for vomiting or diarrhea are prescribed, take these only as directed. Nausea and diarrheamedicines are generally OK unless you have bleeding, fever, or severe abdominal pain.DietFollow these guidelines for food: Water and liquids are important so you don't get dehydrated. Drink a small amount at a time or suck on ice chips if you are vomiting. If you eat, avoid fatty, greasy, spicy, or fried foods. Don't eat dairy if you have diarrhea. This can make diarrhea worse. Avoid tobacco, alcohol, and caffeine which may worsen symptoms.During the first 24 hours (the first full day), follow the diet below: Beverages. Sports drinks, soft drinks without caffeine, braxton aric, mineral water (plain or flavored), decaffeinated tea and coffee. If you are very dehydrated, sports drinks aren't a good choice. They have too much sugar and not enough electrolytes. In this case, commercially available products called oral rehydration solutions, are best. Soups. Eat clear broth, consomm, and bouillon. Desserts. Eat gelatin, ice pops, and fruit juice bars.During the next 24 hours (the second day), you may add the following to the above: Hot cereal, plain toast, bread, rolls, and crackers Plain noodles, rice, mashed potatoes, chicken noodle or rice soup Unsweetened canned fruit (avoid pineapple), bananas Limit fat intake to less than 15 grams per day. Do this by avoiding margarine, butter, oils, mayonnaise, sauces, gravies, fried foods, peanut butter, meat, poultry, and fish. Limit fiber and avoid raw or cooked vegetables, fresh fruits (except bananas), and bran cereals. Limit caffeine and chocolate. Don't use spices or seasonings other than salt. Limit dairy products. Avoid alcohol.During the next 24 hours: Gradually resume a normal diet as you feel better and your symptoms improve. 5 General Instructions [facility] Emergency Department [address] [place] [address] Phone #: ext- [phone] 11/12/2019 20:48 Patient: DAKOTA RAYMUNDO Sex: F : 1990 Age: 29y If at any time it starts getting worse again, go back to clear liquids until you feel better.Follow-up careFollow up with your healthcare provider, or as advised. Call your provider if you don't get better mezaop75 hours or if diarrhea lasts more than a week. Also follow up if you are unable to keep down liquidsand get dehydrated. If a stool (diarrhea) sample was taken, call as directed for the results.Call [phone] if any of these occur: T rouble breathing Chest pain Confused Severe drowsiness or trouble awakening Fainting or loss of consciousness Rapid heart rate Seizure Stiff neckWhen to seek medical adviceCall your healthcare provider right away if any of these occur: Abdominal pain that gets worse Continued vomiting (unable to keep liquids down) Frequent diarrhea (more than 5 times a day) Blood in vomit or stool (black or red color) Dark urine, reduced urine output, or extreme thirst Weakness or dizziness Drowsiness Fever of 100.4F (38C) or higher, or as directed by your healthcare provider Sterling Vela General Instructions [facility] Emergency Department [address] [place] [address] Phone #: ext- [phone] 11/12/2019 20:48 Patient: DAKOTA RAYMUNDO Sex: F : 1990 Age: 29y [id number] [employer] [address] [place] [address], [place] [address]. All rights reserved. This information is not intended a s asubstitute for professional medical care. Always follow your healthcare professional's instructions.GERD (Adult)The esophagus is a tube that carries food from the mouth to the stomach. A valve (the LES, loweresophageal sphincter) at the lower end of the esophagus prevents stomach acid from flowing upward.When this valve doesn't work properly, stomach contents may repeatedly flow back up (reflux) intothe esophagus. This is called gastroesophageal reflux disease (GERD). GERD can irritate theesophagus. It can cause problems with pain, swallowing or breathing. In severe cases, GERD cancause recurrent pneumonia (from aspiration or breathing in particles) or other serious problems.Symptoms of reflux include burning, pressure or sharp pain in the upper abdomen or mid to lowerchest. The pain can spread to the neck, back, or shoulder. There may be belching, an acid taste inthe back of the throat, chronic cough, or sore throat, or hoarseness. GERD symptoms often occurduring the day after a big meal. They can also occur at night when lying down.Home care 7 General Instructions [facility] Emergency Department [address] [place] [address] Phone #: ext- [phone] 11/12/2019 20:48 Patient: DAKOTA RAYMUNDO Sex: F : 1990 Age: 29yLifestyle changes can help reduce symptoms. If needed, your healthcare provider may prescribemedicines. Symptoms often improve with treatment, but if treatment is stopped, the symptoms oftenreturn after a few months. So most persons with GERD will need to continue treatment or gettreatment on and off.Lifestyle changes Limit or avoid fatty, fried, and spicy foods, as well as coffee, chocolate, mint, and foods with high acid content such as tomatoes and citrus fruit and juices (orange, grapefruit, lemon). Don't eat large meals, especially at night. Frequent, smaller meals are best. Don't lie down right after eating. And don't eat anything 3 hours before going to bed. Don't drink alcohol or smoke. As much as possible, stay away from second hand smoke. If you are overweight, losing weight will reduce symptoms. Don't wear tight clothing around your stomach area. If your symptoms occur during sleep, use a foam wedge to elevate your upper body (not just your head.) Or, place 4" blocks under the head of your bed. Or use 2 bed risers under your bedframe.MedicinesIf needed, medicines can help relieve the symptoms of GERD and prevent damage to the esophagus.Discuss a medicine plan with your healthcare pr ovider. This may include one or more of the followingmedicines: Antacids to help neutralize the normal acids in your stomach. Acid blockers (Histamine or H2 blockers) to decrease acid production. Acid inhibitors (proton pump inhibitors PPIs) to decrease acid production in a different way than the blockers. They may work better, but can take a little longer to take effect.Take an antacid 30 to 60 minutes after eating and at bedtime, but not at the same time as an acidblocker.Try not to take medicines such as ibuprofen and aspirin. If you are taking aspirin for yourheart or other medical reasons, talk to your healthcare provider about stopping it.Follow-up careFollow up with your healthcare provider or as advised by our staff.When to seek medical adviceCall your healthcare provider if any of the following occur: 8 General Instructions [facility] Emergency Department [address] [place] [address] Phone #: ext- [phone] 11/12/2019 20:48 Patient: DAKOTA RAYMUNDO Sex: F : 1990 Age: 29y Stomach pain gets worse or moves to the lower right abdomen (appendix area) Chest pain appears or gets worse, or spreads to the back, neck, shoulder, or arm An [id number] trial of medicine doesn't relieve your symptoms Weight loss that can't be explained Trouble or pain swallowing Frequent vomiting (can't keep down liquids) Blood in the stool or vomit (red or black in color) Feeling weak or dizzy Fever of 100.4F (38C) or higher, or as directed by your healthcare provider [id number] [employer] [address] [place] [address]. All rights reserved. This information is not intended as asubstitute for professional medical care. Always follow your healthcare professional's instructions. You have been given the following additional information: Gastroenteritis, Viral (Adult) GERD (Adult)(Electronically signed by Ryan Webster M.D. 11/13/2019 00:29) Name Value Range Interpretation Code Description Data Michelle rce(s) Supporting Document(s) ID Date Data Source [id number] 11/12/2019 08:51:00 PM EST [facility] 1 Clinical Report - Nurses [facility] Emergency Department [address] [place] [address] Phone #: ext- [phone] 11/12/2019 20:48 Patient: DAKOTA RAYMUNDO Sex: F : 1990 Age: 29yTRIAGEArrived by private vehicle. Historian: patient.Triage time: 20:49 11/12/2019.Chief Complaint: ABDOMINAL PAIN.Onset. (2 days ago). ( States that gabapentin is not helping. Vomiting and diarrhea stools, Like"mustard"). 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 --20:51 11/12/19 Zachary Farmer R.N.Acuity: LEVEL 3.SEPSIS SCREEN: Negative (no infection suspected/documented). --20:56 11/12/19 Zachary Alonzo R.N.20:53 11/12/19. BP: 129/78. MAP: 95. HR: 67. RR: 18. O2 saturation: 98%. Temp: 97.9 F. Pain level now:8/10. --20:56 11/12/19 Zachary Alonzo R.N.Weight: 83.4 kg stated. Height/Length: 61 inches Per Patient. BMI: 34.8. --20:48 11/12/19 Zachary Farmer R.N.MedicationsIbuprofen Oral (Tablet 600 mg) 1 tablet, 3x a day. traZODone HCl Oral 200 mg, at bedtime. --20:57 11/12/19 Zachary Alonzo R.N. Trileptal Oral (bipolar). --20:58 11/12/19 Zachary Alonzo R.N. Gabapentin 0830 PRN. --20:58 11/12/19 Zachary Alonzo R.N. clonazePAM Oral 0.5 mg, daily as needed. --22:03 11/12/19 Munir Aguayo R.N.AllergiesNone.Toradol.(nausea, vomiting) --20:57 11/12/19 Zachary Alonzo R.N.HistoryPAST MEDICAL HX: Gastroesophageal reflux disease. Has had a hysterectomy. Last oral intake bypatient was (noon ate pizza rolls and chips).SOCIAL HX: Former smoker. Alcohol use. (seldom). History of drug use: marijuana. She was offeredHIV testing but declined. She was offered hepatitis C testing but declined (hours). 2 Clinical Report - [facility] Emergency Department [address] [place] [address] Phone #: ext- [phone] 11/12/2019 20:48 Patient: DAKOTA RAYMUNDO Sex: F : 1990 Age: 29y SELF HARM ASSESSMENT: Self harm assessment was performed. The patient answered "no" to the question(s) "Do you have thoughts of harming or killing yourself?" and "Have you recently had thoughts about harming or killing others?". ABUSE ASSESSMENT: No report of abuse. FALL RISK ASSESSMENT: Fall risk assessment completed. Risk factors identified include severe pain and nausea. Fall interventions initiated. Bed in low position. Brakes on. Call light in reach of patient. --20:53 11/12/19 Zachary Alonzo R.N. SOCIAL HX: The patient has not traveled outside the [place] Infectious disease exposure: No infectious disease exposure. --20:57 11/12/19 Zachary Alonoz R.N.PHYSICAL ASSESSMENTGENERAL / NEURO / PSYCH: Alert. Oriented X 4. Appears in no acute distress.HEENT: Mucous membranes are pink.RESPIRATORY: Respirations not labored.CVS: Capillary refill less than 2 seconds.GI / : Abdomen soft. Bowel sounds within normal limits.SKIN: Skin is warm and dry. --20:59 11/12/19 Munir Aguayo R.N. ( pt c/o being tender right abdomen). --21:04 11/12/19 Munir Aguayo R.N.NURSING PROGRESS NOTES21:32 11/12/2019 Site #1 started via IV in the right antecubital space with an 20g angiocath; two attempts.Blood drawn: rainbow set. Saline lock flushed. --21:32 11/12/19 Munir Aguayo R.N. 21:32 11/12/2019 Started bag #1 1000 mL IV Fluids NS; at 1000 mL/hr over 1 hour(s) via site #1 via dial-a-flow. Allergies verified and confirmed 5 rights. IV patency established. IV site checked: no pain, redness, or swelling. IV flushed thoroughly pre- and post-medication administration. Information reviewed with patient. --21:32 11/12/19 Munir Aguayo R.N. 21:33 11/12/2019 Started 25 mg of Phenergan IVPB in bag #1 50 mL; at 200 mL/hr over 15 minute(s) via site #1. via dial-a-flow. Allergies verified and confirmed 5 rights. IV patency established. IV site checked: no pain, redness, or swelling. IV flushed thoroughly pre- and post-medication administration. Information reviewed with patient. --21:33 11/12/19 Munir Aguayo R.N. ( Pt states "nausea is gone but pain still there, MD aware). --21:42 11/12/19 Munir Aguayo R.N. 22:03 11/12/2019 Ativan (LORazepam) IVP 1 mg given over 1 minute(s) via site #1. Ilya larson verified and confirmed 5 rights. IV patency established. IV site checked: no pain, redness, or swelling. IV flushed thoroughly pre- and post- medication administration. IVP given by RN. Information reviewed with patient. Verbalizes understanding. --22:03 11/12/19 Munir Aguayo R.N. 3 Clinical Report - Nurses [facility] Emergency Department [address] [place] [address] Phone #: ext- [phone] 11/12/2019 20:48 Patient: DAKOTA RAYMUNDO Sex: F : 1990 Age: 29y22:04 11/12/2019 Phenergan IVPB via IV site #1 Discontinued: bag #1 completed. Total amount infused:50 mL. IV patency established. IV site checked: no pain, redness, or swelling. IV flushed thoroughly.--22:04 11/12/19 Munir Aguayo R.N.( Pt intermittently moaning, only when staff is near). --22:05 11/12/19 Munir Aguayo R.N.( Pt refusing CT, MD at bedside explaining that lipase is elevated. P t up to bathroom). --22:08 11/12/19Munir Aguayo R.N.Patient transported to CT by wheelchair with resident physician in radiology. --22:38 11/12/19 Munir Aguayo R.N.( Pt c/o pain "its not going away"). --23:20 11/12/19 Munir Aguayo R.N.( Pt would like to discharge her self). --23:32 11/12/19 Munir Aguayo R.N.( MD speaking to patient about waiting for CT results). --23:34 11/12/19 Madhu Aguayo R.N.23:39 11/12/2019 Started 40 mg of Protonix (Pantoprazole Sodium) IVPB in bag #1 50 mL; at 200 mL/hrover 15 minute(s) via site #1. via dial-a-flow. Allergies verified and confirmed 5 rights. IV patencyestablished. IV site checked: no pain, redness, or swelling. IV flushed thoroughly pre- and post- medicationadministration. Information reviewed with patient. --23:39 11/12/19 Munir Aguayo R.N.23:39 11/12/2019 Started 50 mg of Ranitidine IVPB in bag #1 50 mL; at 200 mL/hr over 15 minute(s) viasite #1. via dial-a-flow. Allergies verified and confirmed 5 rights. IV patency established. IV site checked: nopain, redness, or swelling. IV flushed thoroughly pre- and post-medication administration. Informationreviewed with patient. --23:39 11/12/19 Munir Aguayo R.N.( Pt asking to sign out AMA, "i just want to go home and go to bed"). --23:46 11/12/19 Munir Aguayo R.N.00:16 11/13/2019 Site #1 removed upon discharge. Bandage applied. --00:16 11/13/19 Munir Aguayo R.N.( Pt again asking to leave, IV d/c'd aware). --00:16 11/13/19 Munir Aguayo R.N.00:27 11/13/2019 IV Fluids NS via IV site #1 Discontinued: bag #1 completed upon discharge. Totalamount infused: 1000 mL. IV patency established. IV site checked: no pain, redness, or swelling. IVflushed thoroughly. --00:27 11/13/19 Munir Aguayo R.N.00:27 11/13/2019 Ranitidine IVPB via IV site #1 Discontinued: bag #1 completed. Total amount infused: 50mL. IV patency established. IV site checked: no pain, redness, or swelling. IV flushed thoroughly. --00: Munir Aguayo R.N.00:27 11/13/2019 Protonix IVPB via IV site #1 Discontinued: bag #1 completed upon discharge. Totalamount infused: 50 mL. IV patency established. IV site checked: no pain, redness, or swelling. IV flushed 4 Clinical Report - Nurses [facility] Emergency Department [address] [place] [address] Phone #: ext- [phone] 11/12/2019 20:48 [id number] Sex: F : 1990 Age: 29y thoroughly. --00:27 11/13/19 Munir Aguayo R.N.DISPOSITION / DISCHARGE ( Pt refusing further care). --00:17 11/13/19 Munir Aguayo R.N. 00:17 11/13/19. Pain level now 5/10. --00:17 11/13/19 Munir Aguayo R.N. Condition at departure: unchanged. The patient left prior to discharge education being p rovided. --00:17 11/13/19 Munir Aguayo R.N. Discharge instructions provided and reviewed with the patient. The patient left the Emergency Department without completion of treatment. The patient appears to be alert and oriented x4. --00:18 11/13/19 Munir Aguayo R.N. Reviewed referral to a primary care physician. --00:18 11/13/19 Munir Aguayo R.N. Patient verbalized understanding. Written instructions provided in Fijian. The patient was discharged by the physician. She was discharged home. She left ambulatory and via private vehicle. Patient driving. --00:19 11/13/19 Munir Aguayo R.N. ( Pt to be d/c'd with normal cat scan). --00:22 11/13/19 Munir Aguayo R.N.Locked/Released at 11/13/2019 00:27 by Munir Aguayo R.N. Name Value Range Interpretation Code Description Data Michelle rce(s) Supporting Document(s) ID Date Data Source [id number] 11/12/2019 08:51:00 PM EST [facility] 1 Clinical Report - Physicians/Mid Levels [facility] Emergency Department [address] [place] [address] Phone #: ext- [phone] 11/12/2019 20:48 Patient: DAKOTA RAYMUNDO Sex: F : 1990 Age: 29y Time Seen: 21:07 11/12/2019; initial patient contact. Arrived- By private vehicle. Historian- patient. Disposition decision: 00:20 11/13/2019.HISTORY OF PRESENT ILLNESS Chief Complaint: ABDOMINAL PAIN. This started 3 days ago and is still present. It is described as "pain" and it is described as located in the right flank and the right abdomen. At its maximum, severity described as severe. When seen in the E.D., severity described as moderate. Modifying factors. Not worsened by anything. Not relieved by anything. The patient has had mild nausea and moderate vomiting. She has had moderate diarrhea. It has been watery. Similar symptoms previously. Patient has had similar symptoms occasionally. Recent medical care: The patient was seen recently at this facility. ( on 11-10-19, had workup and CTAP w IV, all nml).REVIEW OF SYSTEMSNo constipation, black stools, hematemesis, pain with urination or urinary frequency. No bloody stools,fever, headache, sore throat or blurred vision. No chest pain, difficulty breathing, cough, joint pain or skinrash. No chills or back pain. The patient has not had weight loss. All other systems reviewed and arenegative.PAST HISTORYSee nurses notes. Problems: Anxiety Reaction. Depression. Bipolar Disorder. Gastroesophageal Reflux Disease. Additional Surgeries: Hysterectomy. Tonsillectomy. Total colectomy [03/2017]. Tubal Ligation. Medications: Gabapentin 0830 PRN. Trileptal Oral (bipolar). Ibuprofen Oral (Tablet 600 mg) 1 tablet, 3x a day. traZODone HCl Oral 200 mg, at bedtime. 2 Clinical Report - Physicians/Mid Levels [facility] Emergency Department [address] [place] [address] Phone #: ext- [phone] 11/12/2019 20:48 Patient: DAKOTA RAYMUNDO Sex: F : 1990 Age: 29y Allergies: None. Toradol.(nausea, vomiting).SOCIAL HISTORYFormer smoker. History of drug use: marijuana. No alcohol use.ADDITIONAL NOTESThe nursing notes have been reviewed with agreement regarding the chief complaint, HPI, ROS, PMH andpatient medications and allergies.PHYSICAL EXAMVital Signs: 11/12/2019 20:53 BP: 129/78. MAP: 95. HR: 67. RR: 18. O2 saturation: 98%. Temp: 97.9 F.Pain level now: 810. Have been reviewed. Oxygen saturation normal.Appearance: Alert. Oriented X3. Anxious. Patient in mild distress. Distress appears due to pain.Eyes: Pupils equal, round and reactive to light. Eyes normal inspection.ENT: Ears normal. Nose normal. Pharynx normal.Neck: Normal inspection. Neck supple.CVS: Normal heart rate and rhythm. Heart sounds normal. Pulses normal.Respiratory: No respiratory distress. Painless inspiration. Breath sounds normal. Chest nontender.Abdomen: Soft. Mild tenderness in the right side of the abdomen. No guarding or rebound tenderness.Bowel sounds normal. No organomegaly. No mass. Femoral pulses equal.Back: Normal inspection. No CVA tenderness.Skin: Skin warm and dry. Normal skin color. No rash. Normal skin turgor.Extremities: Extremities exhibit normal ROM. No lower extremity edema.Neuro: Oriented X 3. No motor deficit. No sensory deficit. Reflexes normal.LABS, X-RAYS, AND EKGAbdominal CT: REPORT SUBMISSION DATE: Nov 13, 2019 12:17:50 AM EST NAME: DAKOTA RAYMUNDO STUDY INITIATED: Nov 12, 2019 10:16:13 PM EST STUDY RECEIVED: Nov 12, 2019 10:56:55 PM EST GENDER: F MODALITY TYPE: CT : 89 DESCRIPTION: CT ABD PELVIS W/ IV ONLY INSTITUTION: [facility] ORDERING PHYSICIAN: Ryan Webster PATIENT HISTORY: ACTUAL DOSE 865.8 mGy*cm abdominal pain isovue 370 75cc [id number] Jun 2022 was given Patient hx hysterectomy. Verification of 2 patient identifiers performed. Time Out performed. type and amount of contrast used, correct body part and side all verified prior to examination. 3 Clinical Report - Physicians/Mid Levels [facility] Emergency Department [address] [place] [address] Phone #: ext- [phone] 11/12/2019 20:48 Patient: DAKOTA RAYMUNDO Sex: F : 1990 Age: 29y Exam has been sent to [facility] [employer] - If further information is needed, the number [phone]. Report will be faxed to ED and/or Xray. (Hx) / SAGITTAL (DICOM Hx)CT Abdomen/PelvisHistory:ACTUAL DOSE 865.8 mGy*cm abdominal pain isovue 370 75cc [id number] Jun 2022 was given Patient hxhysterectomy. Verification of 2 patient identifiers performed. Time Out performed. type and amount ofcontrast used, correct body part and side all verified prior to examination. [facility] - If further information is needed, the number is . Reportwill be faxed to ED and/or Xray. 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 Bowel loops demonstrate no evidence forobstruction. 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 Abdominal CT performed with IV contrast. The study was 4 Clinical Report - Physicians/Mid Levels [facility] Emergency Department [address] [place] [address] Phone #: ext- [phone] 11/12/2019 20:48 Patient: DAKOTA RAYMUNDO Sex: F : 1990 Age: 29yinterpreted by the radiologist.Laboratory Tests: Laboratory tests have been ordered, with results reviewed and considered in themedical decision making process.CT Abd PEL W/ IV Contrast Only: (CASSIE: 11/12/2019 22:03) ( MsgRcvd 11/13/2019 00:18) Finalresults Exam CT ABD //T// PELVIS W/ IV ONLY [facility] [address] [place] [address] ---------NAME--------- NUMBER SEX AGE ADMIT DISC. XRAY# F/C TYPE DEONNA Colbert [id number] F 29 11/12/19 [id number] X6B E/R DATE OF : 1990 M/R# [id number] #: [id number] TR-08 LOCATION: EMERGENCY DEPT TRANSCRIBED: 11/13/[address] ABD //T// PELVIS W/ IV ONLY [id number] COMPLETED:11/12/19 23:12 DLA [id number] Reason(s): ABDMINAL PAIN, PANCREATITIS PHYSICIAN: ELEANOR GENAO R A D I O L O G Y R E P O R T PATIENT HISTORY: ACTUAL DOSE 865.8 mGy*cm abdominal pain isovue 370 75cc [id number] Jun 2022 was given Patient hx hysterectomy. Verification of 2 patient identifiers performed. Time Out performed. type and amount of contrast used, correct body part and side all verified prior to examination. Exam has been sent to [facility] [employer] [facility] - If further information is needed, the number is . Report will be faxed to ED and/or Xray. / SAGITTAL (DICOM Hx) CT Abdomen/Pelvis History: ACTUAL DOSE 865.8 mGy*cm abdominal pain isovue 370 75cc [id number] Jun 2022 was given Patient hx hysterectomy. Verification of 2 patient identifiers performed. Time Out performed. type and amount of contrast used, correct body part and side all verified prior to examination. Exam has been sent to [facility] - If further information is needed, the number is . Report will be faxed to ED and/or Xray. (Hx) / SAGITTAL (DICOM Hx) Technique: CT ABD //T// PELVIS W/ IV ONLY Dose length product (mGy-cm): Not provided Reformations: Other Contrast: With; isovue 370 75cc [id number] Jun 2022 Comparison: CT - CT ABD //T// PELVIS W/ IV ONLY - 11/10/2019 09:08 PM EST Findings: The appendix is visualized and appears normal without inflammation or enlargement. Dilated colon at lower abdominal ileocolonic anastomosis likely due to denervated/defunctionalized state. Normal small bowel. There are normal appearing stomach, liver, gallbladder, pancreas and bilateral adrenal glands. Normal spleen. 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 Normal right kidney and bladder. Hysterectomy. Minimal dependent atelectasis lower lobes bilaterally. There is no aggressive bony lesion. 5 Clinical Report - Physicians/Mid Levels [facility] Emergency Department [address] [place] [address] Phone #: ext- [phone] 11/12/2019 20:48 Patient: DAKOTA RAYMUNDO Sex: F : 1990 Age: 29y IMPRESSIONS: Unremarkable postoperative change to the bowel loops. Bowel loops demonstrate no evidence for obstruction. No definitive enteritis or colitis at this time. 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 The etiology of the patient's symptoms are not definitively evident on this exam. If symptoms persist or worsen and depending upon review of any new laboratory and clinical data, repeat examination or specialist consultation may be of value. While performing the above CT examination, radiation dose reduction was accomplished utilizing automated exposure control, adjusting of the mA and kV based on the patient's body size and/or the use of imperative reconstructive techniques. Electronically Signed By: Willie Son M.D. , Radiologist Date/Time: 11/13/19 00:17Lactic Acid: (CASSIE: 11/12/2019 21:25) ( MsgRcvd 11/12/2019 21:33) Final results Test Result Flag Units (Reference) LACTIC ACID 1.1 MMOL/L (0.2 - 2.2)CRP: (CASSIE: 11/12/2019 21:25) ( MsgRcvd 11/12/2019 21:53) Final results Test Result Flag Units (Reference) CRP-HS 1.40 MG/L (1.00 - 3.00) CDC/AHS HS-CRP CUT-OFF: RELATIVE RISK: <1.0 mg/LLow 1.0 - 3.0 mg/L Average >3.0 mg/LHigh Optimally, the average of HS-CRP results repeated two weeks apart should be used forrisk assessment.CBC w Diff: (CASSIE: 11/12/2019 21:25) ( Mscvd 11/12/2019 21:32) Final results Test Result Flag Units (Reference) CBC W/AUTOMATED DIFF COMPLETE BLOOD COUNT WBC 6.5 10/uL (4.2 - 11.0) RBC 4.18 L 10/uL (4.20 - 5.40) HEMOGLOBIN 12.0 g/dL (12.0 - 16.0) HEMATOCRIT 37.7 % (37.0 - 47.0) MCV 90.2 fL (81.0 - 101) MCH 28.7 pg (27.0 - 34.0) MCHC 31.8 g/dL (31.0 - 36.0) RDW 13.4 % (11.5 - 14.5) PLATELETS 257 10/uL (150 - 450) MPV 10.0 fL (7.4 - 10.4) NEUT 57.6 % (37.0 - 80.0) LYMPH 33.5 % (25.0 - 40.0) MONO 4.7 % (3.0 - 8.0) EOS 3.2 % (0.0 - 7.0) BASO 0.8 % (0.0 - 2.5) %IG 0.2 H % (0.0 - 0.0) %NRBC 0.0 % (0.0 - 0.0) #NEUT 3.77 10/uL (2.00 - 6.90) #LYMPH 2.19 10/uL (0.60 - 3.40) #MONO 0.31 10/uL (0.00 - 0.90) #EOS 0.21 10/uL (0.00 - 0.70) #BASO 0.05 10/uL (0.00 - 0.20) #IG 0.01 10/uL (0.00 - 0.10) #NRBC 0.00 10/uL (0.00 - 0.00) MANUAL D IFF NOT INDICATED RBC MORPH NOT INDICATED 6 Clinical Report - Physicians/Mid Levels [facility] Emergency Department [address] [place] [address] Phone #: ext- [phone] 11/12/2019 20:48 Patient: DAKOTA RAYMUNDO Sex: F : 1990 Age: 29y CMP: (CASSIE: 11/12/2019 21:25) ( MsgRcvd 11/12/2019 21:53) Final results Test Result Flag Units (Reference) COMPREHENSIVE METABOLIC PANEL COMPREHENSIVE METABOLIC PANEL SODIUM 141 mEq/L (134 - 153) POTASSIUM 4.9 mEq/L (3.6 - 5.0) CHLORIDE 105 mEq/L (98 - 107) CO2 31 H MEQ/L (22 - 30) GLUCOSE 99 MG/DL (65 - 110) BUN 10 MG/DL (7 - 21) CREATININE 0.7 MG/DL (0.7 - 1.5) BUN/CREAT 14 (8 - 27) TOTAL PROTEIN 6.5 G/DL (6.3 - 8.2) ALBUMIN 4.0 G/DL (3.9 - 5.0) GLOBULIN 2.5 GM/DL (2.4 - 3.2) A/G RATIO 1.6 (0.8 - 2.0) CALCIUM 9.7 MG/DL (8.4 - 10.2) TOTAL BILI 0.7 MG/DL (0.2 - 1.3) ALKALINE PHOS 90 U/L (38 - 126) SGOT/AST 19 U/L (5 - 40) SGPT/ALT 11 U/L (7 - 56) ANION GAP 5.0 L mmol/L (8.0 - 16.0) AGE 29 yrs NON-AA GFR >60 mL/min AFR AMER GFR >60 mL/min Male GFR Interprentation 20-49 yrs >60 mL/min Normal 50-59 yrs >56 mL/min Normal 60-69 yrs >49 mL/min Normal 70-79yrs >42 mL/min Normal 80 and above >35 mL/min Normal Female GFR Interpretation 20-39 yrs >60 mL/min Normal 40-49 yrs >58 mL/min Normal 50-59 yrs >51 mL/min Normal 60-69 yrs >45 mL/min Normal 70-79 yrs >39 mL/min Normal 80 and above >32 mL/min Normal Lipase: (CASSIE: 11/12/2019 21:25) ( MsgRcvd 11/12/2019 21:59) Final results Test Result Flag Units (Reference) LIPASE 360 H U/L (13 - 60) Urinalysis: (CASSIE: 11/12/2019 21:15) ( MsgRcvd 11/12/2019 21:29) Final results Test Result Flag Units (Reference) URINALYSIS URINALYSIS SOURCE R COLOR yellow (NORMAL: Yello CLARITY clear (NORMAL: Clear SPEC GRAVITY 1.010 (1.001 - 1.030 pH 6.5 (5 - 9) GLUCOSE NORM (NORMAL: Negat BILIRUBIN NEG (NORMAL: Negat KETONE NEG (NORMAL: Negat PROTEIN NEG (NORMAL: Negat NITRITE NEG (NORMAL: Negat BLOOD NEG (NORMAL: Negat LEUK EST 25 (NORMAL: Negat UROBILINOGEN NOR (less than 1.0 MICROSCOPIC See Below WBC 1 - 3 (NORMAL: NONE EPITHELIAL FEW (NORMAL: NONE.PROGRESS AND PROCEDURESCourse of Care: 21:16 11/12/19. Data Detail Level: Printer-Friendly ClickMagic Extended View 7 Clinical Report - Physicians/Mid Levels [facility] Emergency Department [address] [place] [address] Phone #: ext- [phone] 11/12/2019 20:48 Patient: DAKOTA RAYMUNDO Sex: F : 1990 Age: 29yConfidential Drug Utilization ReportSearch Terms: dakota raymundo 1990Search Date: 11/12/2019 09:16:33 PMThe Drug Utilization Report below displays all of the controlled substance prescriptions, if any, that yourpatient has filled in the last twelve months. The information displayed on this report is compiled frompharmacy submissions to the Department, and accurately reflects the information as submitted by thepharmacies.This report was requested by: Ryan Webster Reference #: [id number] PrescriptionsPatient Name: Dakota Raymundo Date: 1990Address: [address] [place] [address] Sex: FemaleRx Written Rx Dispensed Drug Quantity Days Supply Prescriber Name09/30/2019 09/30/2019 hydrocodone-acetaminophen 5-300 mg tablet 6 2 Ryan Webster MDOthers' PrescriptionsPatient Name: Dakota Raymundo Date: 1990Address: [address] [place] [address] Sex: FemaleRx Written Rx Dispensed Drug Quantity Days Supply Prescriber Name11/04/2019 11/04/2019 clonazepam 1 mg tablet 10 10 Blaise, Erin112/17/2018 10/16/2019 oxycodone- acetaminophen 5-325 mg tablet 20 4 Ming Romero DMD MD10/07/2019 10/07/2019 lorazepam 2 mg tablet 2 2 Homero Barriga Kaylene DDS111/19/2018 09/19/2019 hydrocodone- acetaminophen 5-325 mg tablet 4 2 Hayley De Jesus)08/18/2019 08/21/2019 clonazepam 0.5 mg tablet 10 10 Blaise, Erin1008/06/2019 phentermine 37.5 mg tablet 30 30 Alicia Xie PA07/17/2019 07/17/2019 clonazepam 0.5 mg tablet 10 10 Blaise Erin06/19/2019 06/20/2019 clonazepam 0.5 mg tablet 5 5 BlaiseCiprianoin05/22/2019 05/23/2019 alprazolam 0.25 mg tablet 10 10 Cisco Barrientos M Phmnp03/31/2019 04/29/2019 phentermine 37.5 mg tablet 30 30 TonAlicia blake PA03/31/2019 03/31/2019 phentermine 37.5 mg tablet 30 30 TonAlicia blake PA03/09/2019 03/09/2019 hydrocodone-acetaminophen 5-325 mg tablet 12 2 Chad Gallardo PA12/26/2018 12/26/2018 lorazepam 1 mg tablet 10 10 Cristhian Bolden12/08/2018 12/08/2018 alprazolam 2 mg tablet 45 22 Jacinda Mcclure M012/05/2018 12/05/2018 tramadol hcl 50 mg tablet 15 5 Smith Lucero MD11/21/2018 11/21/2018 alprazolam 0.5 mg tablet 14 14 Jacinda Mcclure M* - Drugs marked with an asterisk are compound drugs. If the compound drug is made up of more than onecontrolled substance, then each controlled substance will be a separate row in the table.21:46 11/12/19. workup and CTAP w iv of 11-10-19 reviewed and nml; pt seems to have GE Sx's; will treatand repeat workup, then hebphzkf10:04 11/12/19. workup all in and reviewed, lipase is high compared to 11-10-19, will repeat CTAP w IV, 8 Clinical Report - Physicians/Mid Levels [facility] Emergency Department [address] [place] [address] Phone #: ext- [phone] 11/12/2019 20:48 Patient: DAKOTA RAYMUNDO Sex: F : 1990 Age: 29y please note that WBC, lactic, CRP all nml 00:19 11/13/19. CTAP w IV result in and nml, see report; pt doing better, does not seem in any distress in ER, wanted pain meds but workup and CT are nml; will d/c home w zofran and protonix. Patient counseled in person regarding the patient's stable condition, test results, diagnosis and need for follow-up. Patient agrees with plan of care. Di sposition: Condition: good and stable. Discharge decision based on the following: patient's condition is stable; patient's condition is improved; patient is ambulatory; patient is active; patient drinking fluids; patient's pain is controlled; patient's exam is improved; no abnormal test results; improving condition on repeat evaluation; social support is good; transportation is available; follow-up is available; clinical impression is consistent with outpatient treatment.CLINICAL IMPRESSION Gastroesophageal reflux disease. No esophagitis. Acute norovirus gastroenteritis.INSTRUCTIONS Drink plenty of fluids. Avoid alcohol and NSAIDS. NSAIDS include aspirin, ibuprofen (Advil) and naproxen (Aleve). Avoid fatty, fried/greasy, lactose-containing (such as milk, cheese and ice cream), salty and spicy foods. Warnings: Further evaluation is necessary. It is very important to follow up with a healthcare provider. GENERAL WARNINGS: Return or contact your physician immediately if your condition worsens or changes unexpectedly, if not improving as expected, or if other problems arise. SPECIFICALLY, return if you develop pain in the abdomen, pelvis, testicle, back or shoulder, fever, vomiting, the inability to keep fluids down, blood in vomitus, blood in diarrhea, fainting or lightheadedness. Your Current Medications: Your current home medications have been reviewed. STOP TAKING THE FOLLOWING MEDICATIONS: Ibuprofen Oral : Tablet 600 mg, 1 tablet 3x a day. CONTINUE TAKING THE FOLLOWING MEDICATIONS: clonazePAM Oral : 0.5 mg daily, prn. Gabapentin 0830 PRN*. traZODone HCl Oral : 200 mg, at bedtime. Trileptal Oral : bipolar. Prescription Medications: Protonix 40 mg tablet,delayed release Take 1 tablet once a day for 30 days -- Dispense 30 tablet. 9 Clinical Report - Physicians/Mid Levels [facility] Emergency Department [address] [place] [address] Phone #: [phone] ozm- [id number] 11/12/2019 20:48 Patient: DAKOTA RAYMUNDO Sex: F : 1990 Age: 29y Refills: 1. Substitution permitted. [employer] [address] [place] [address]. . Zofran 4 mg tablet Take 1 tablet four times a day as needed for 4 days -- Dispense 16 tablet. Refills: 0. Substitution permitted. [employer] [address] [place] [address]. . Follow-up: Return to the emergency department as needed. Follow up with your healthcare provider in two days even if well. Call for an appointment. Reason for referral: evaluation and treatment. Summary of care provided to patient via paper. Understanding of the discharge instructions verbalized by patient. Expected course of illness, discharge instructions, activity level, diet, prescriptions x2, follow-up appointment and risks and benefits of treatment reviewed with patient and understanding verbalized. Agrees to plan of care.(Electronically signed by Ryan Webster M.D. 11/13/2019 00:29) Name Value Range Interpretation Code Description Data Michelle rce(s) Supporting Document(s) ID Date Data Source [id number] 11/13/2019 12:17:[address] [place] [address] ---------NAME--------- NUMBER SEX AGE ADMIT DISC. XRAY# F/C TYPE RAYMUNDO DAKOTA L [id number] F 29 11/12/19 [id number] X6B E/R DATE OF : 1990 M/R# [id number] PH#: [phone] TR-08 LOCATION: EMERGENCY DEPT TRANSCRIBED: 11/13/[address] ABD //T// PELVIS W/ IV ONLY [id number] COMPLETED:11/12/19 23:12 DLA [id number] Reason(s): ABDMINAL PAIN, PANCREATITIS PHYSICIAN: ELEANOR GENAO == R A D I O L O G Y R E P O R T PATIENT HISTORY:ACTUAL DOSE 865.8 mGy*cm abdominal pain isovue 370 75cc [id number] Jun 2022 wasgivenPatient hx hysterectomy. Verification of 2 patient identifiers performed.Time Out performed. type and amount of contrast used, correct body part and sideall verified prior to examination. Exam has been sent to [facility] - If further informationis needed, the number is . Report will be faxed to ED and/orXray. / SAGITTAL (DICOM Hx)CT Abdomen/PelvisHistory:ACTUAL DOSE 865.8 mGy*cm abdominal pain isovue 370 75cc [id number] Jun 2022 wasgiven Patient hx hysterectomy. Verification of 2 patient identifiers performed.Time Out performed. type and amount of contrast used, correct body part and sideall verified prior to examination. [facility] - If further information is needed, the number is .Report will be faxed to ED and/or Xray. 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 Bowel loops demonstrateno evidence for obstruction. 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 , RadiologistDate/Time: 11/13/19 00:17 Name Value Range Interpretation Code Description Data Michelle rce(s) Supporting Document(s) ID Date Data Source [id number] 11/12/2019 09:59:00 PM [facility] Name Value Range Interpretation Code Description Data Michelle rce(s) Supporting Document(s) Lipase [Enzymatic activity/volume] in Serum or Plasma 360 U/L 13 - 60 H [facility] ID Date Data Source [id number] 11/12/2019 09:53:00 PM [facility] Name Value Range Interpretation Code Description Data Michelle rce(s) Supporting Document(s) C reactive protein [Mass/volume] in Serum or Plasma by High sensitivity method 1.40 MG/L 1.00 - 3.00 [facility] CDC/S HS-CRP CUT-OFF: RELATIVE RISK: <1.0 mg/L Low 1.0 - 3.0 mg/L Average >3.0 mg/L High Optimally, the average of HS-CRP results repeated two weeks apart should be used for risk assessment. ID Date Data Source [id number] 11/12/2019 09:53:00 PM [facility] Name Value Range Interpretation Code Description Data Michelle rce(s) Supporting Document(s) COMPREHENSIVE METABOLIC PANEL [facility] COMPREHENSIVE METABOLIC PANEL Sodium [Moles/volume] in Serum or Plasma 141 mEq/L 134 - 153 [facility] Potassium [Moles/volume] in Serum or Plasma 4.9 mEq/L 3.6 - 5.0 [facility] Chloride [Moles/volume] in Serum or Plasma 105 mEq/L 98 - 107 [facility] Carbon dioxide, total [Moles/volume] in Serum or Plasma 31 MEQ/L 22 - 30 H [facility] Glucose [Mass/volume] in Serum or Plasma 99 MG/DL 65 - 110 [facility] BUN 10 MG/DL 7 - [facility] Creatinine [Mass/volume] in Serum or Plasma 0.7 MG/DL 0.7 - 1.5 [facility] BUN/CREAT 14 8 - 27 [facility] al Protein [Mass/volume] in Serum or Plasma 6.5 G/DL 6.3 - 8.2 [facility] Albumin [Mass/volume] in Serum or Plasma 4.0 G/DL 3.9 - 5.0 [facility] Globulin [Mass/volume] in Serum by calculation 2.5 GM/DL 2.4 - 3.2 [facility] A/G RATIO 1.6 0.8 - 2.0 [facility] Calcium [Mass/volume] in Serum or Plasma 9.7 MG/DL 8.4 - 10.2 [facility] Bilirubin.total [Mass/volume] in Serum or Plasma 0.7 MG/DL 0.2 - 1.3 [facility] Alkaline phosphatase [Enzymatic activity/volume] in Serum or Plasma 90 U/L 38 - 126 [facility] Aspartate aminotransferase [Enzymatic activity/volume] in Serum or Plasma 19 U/L 5 - 40 [facility] Alanine aminotransferase [Enzymatic activity/volume] in Seru m or Plasma 11 U/L 7 - 56 [facility] Anion gap 3 in Serum or Plasma 5.0 mmol/L 8.0 - 16.0 L [facility] AGE 29 yrs [facility] NON-AA GFR >60 mL/min [facility] ital AFR AMER GFR >60 mL/min [facility] Ho spital Male GFR In terprentation 20-49 yrs >60 mL/min Normal 50-59 yrs >56 mL/min Normal 60-69 yrs >49 mL/min Normal 70-79yrs >42 mL/min Normal 80 and above >35 mL/min Normal Female GFR Interpretation 20-39 yrs >60 mL/min Normal 40-49 yrs >58 mL/min Normal 50-59 yrs >51 mL/min Normal 60-69 yrs >45 mL/min Normal 70-79 yrs >39 mL/min Normal 80 and above >32 mL/min Normal ID Date Data Source [id number] 11/12/2019 09:33:00 PM EST [facility] Name Value Range Interpretation Code Description Data Michelle rce(s) Supporting Document(s) Lactate [Moles/volume] in Serum or Plasma 1.1 MMOL/L 0.2 - 2.2 [facility] ID Date Data Source [id number] 11/12/2019 09:32:00 PM EST [facility] Name Value Range Interpretation Code Description Data Michelle rce(s) Supporting Document(s) CBC W/AUTOMATED DIFF [facility] COMPLETE BLOOD COUNT Leukocytes [#/volume] in Blood by Automated count 6.5 10^3/uL 4.2 - 1 1.0 [facility] Erythrocytes [#/volume] in Blood by Automated count 4.18 10^6/uL 4. 20 - 5.40 L [facility] Hemoglobin [Mass/volume] in Blood 12.0 g/dL 12.0 - 16.0 [facility] Hematocrit [Volume Fraction] of Blood by Automated count 37.7 % 3 7.0 - 47.0 [facility] Erythrocyte mean corpuscular volume [Entitic volume] by Auto mated count 90.2 fL 81.0 - 101 [facility] Erythrocyte mean corpuscular hemoglobin [Entitic mass] by Automated count 28.7 pg 27.0 - 34.0 [facility] Erythrocyte mean corpuscular hemoglobin concentration [Mass/volume] by Automated count 31.8 g/dL 31.0 - 36.0 [facility] Erythrocyte distribution width [Ratio] by Automated count 13.4 % 11.5 - 14.5 [facility] Platelets [#/volume] in Blood by Automated count 257 10^3/uL 150 - 45 0 [facility] Platelet mean volume [Entitic volume] in Blood by Automated count 10.0 fL 7.4 - 10.4 [facility] Neutrophils/100 leukocytes in Blood by Automated count 57.6 % 37. 0 - 80.0 [facility] Lymphocytes/100 leukocytes in Blood by Manual count 33.5 % 25.0 - 40.0 [facility] Monocytes/100 leukocytes in Blood by Automated count 4.7 % 3.0 - 8.0 [facility] Eosinophils/100 leukocytes in Blood by Automated count 3.2 % 0.0 - 7.0 [facility] Basophils/100 leukocytes in Blood by Automated count 0.8 % 0.0 - 2.5 [facility] %IG 0.2 % 0.0 - 0.0 H [facility] Hospit al %NRBC 0.0 % 0.0 - 0.0 [facility] al Neutrophils [#/volume] in Blood by Automated count 3.77 10^3/uL 2.00 - 6.90 [facility] Lymphocytes [#/volume] in Blood by Automated count 2.19 10^3/uL 0.60 - 3.40 [facility] Monocytes [#/volume] in Blood by Automated count 0.31 10^3/uL 0.00 - 0.90 [facility] Eosinophils [#/volume] in Blood by Automated count 0.21 10^3/uL 0.00 - 0.70 [facility] Basophils [#/volume] in Blood by Automated count 0.05 10^3/uL 0.00 - 0.20 [facility] #IG 0.01 10^3/uL 0.00 - 0.10 [facility] ospital #NRBC 0.00 10^3/uL 0.00 - 0.00 [facility] ospital MANUAL DIFF NOT INDICATED [facility] RBC MORPH NOT INDICATED [facility] spital ID Date Data Source [id number] 11/12/2019 09:29:00 PM EST [facility] Name Value Range Interpretation Code Description Data Michelle rce(s) Supporting Document(s) [facility] S[facility] R [facility] al COLOR yellow NORMAL: Yellow [facility] ospital CLARITY clear NORMAL: Clear [facility] spital Specific gravity of Urine by Test strip 1.010 1.001 - 1.030 [facility] pH 6.5 5 - 9 [facility] al Glucose [Mass/volume] in Urine by Test strip NORM [facility] Bil[facility].total [Presence] in Urine by Test strip NEG NORMAL: Negative [facility] Ketones [Presence] in Urine by Test strip NEG NORMAL: Negative [facility] Protein [Mass/volume] in Urine by Test strip [facility]G [facility]AL[facility] Nitrite [Presence] in Urine by Test strip NEG NORMAL: Negative [facility] BLOOD NEG NORMAL: Negative [facility] Leukocyte esterase [Presence] in Urine by Test strip 25 KYLEIGH L: Negative [facility] Urobilinogen [Mass/volume] in Urine by Test strip NOR less jeyson n 1.0 mg/dL [facility] MICROSCOPIC See Below [facility] Hosp ital WBC 1 - 3 NORMAL: NONE SEEN [facility] EPITHELIAL FEW NORMAL: NONE SEEN [facility] Hospital ID Date Data Source [id number] 11/10/2019 06:10:00 PM EST [facility] 1 OrderSheet [facility] Emergency Department [address] [place] [address] Phone #: ext- [phone] 11/10/2019 17:45 Patient: DAKOTA RAYMUNDO Sex: F : 1990 Age: 29yWEIGHT:83.4 kg (S) HEIGHT:61 inches (S) BMI:34.8ALLERGIES: None, ToradolCHIEF COMPLAINT: abdominal painDIAGNOSIS: Gastroenteritis, Abdominal pain, ProblemLAB ORDERSOrder Description Priority Entered Acknowledged InitialedCBC w Diff STAT 18:51 11/10/2019 18:53 Sunitha Castillo RN P.A.-C;CMP STAT 18:51 11/10/2019 18:53 Sunitha Castillo RN P .A.-C;Lipase STAT 18:51 11/10/2019 18:53 Sunitha Castillo RN P.A.-C;Urinalysis (Clean STAT 18:51 11/10/2019 18:53 BurnhamCatch) Kyle [facility]ila ED P.A.-C; Pkkh7Iigltn Acid STAT 18:51 11/10/2019 18:53 Sunitha Castillo RN P.A.-C;PT/INR STAT 18:51 11/10/2019 18:53 Sunitha Yuli Castillo RN P.A.-C;DIAGNOSTIC STUDY ORDERSOrder Description Priority Entered Acknowledged InitialedCT Abd PEL W/ IV STAT 20:40 11/10/2019 Ack'd: 20:43 21:43 Latanya,Contrast Only Isidra Jones R.N.(Oxygen? (Yes)) P.A.-C; Isidra Fried(IV?(Yes)) Reason for Study: Abdominal PainMEDICATION/IV/DRIP/FLUID ORDERSOrder Description Priority Entered Acknowledged InitialedNS IV : Bolus 500 18:51 11/10/2019 18:54 DorismL, then 100 mL/hr Yuli Castillo RN 2 OrderSheet [facility] Emergency Department [address] [place] [address] Phone #: ext- [phone] 11/10/2019 17:45 Patient: DAKOTA RAYMUNDO Sex: F : 1990 Age: 29y P.A.-C;Zofran IVP 4 mg 18:51 11/10/2019 19:03 Sunitha Yuli Castillo RN P.A.-C;Morphine IVP 4 mg 18:51 11/10/2019 19:03 Sunitha(HIGH ALERT Yuli Castillo RNMEDICATION) P.A.-C;Phenergan 25 mg 19:50 11/10/2019 Ack'd: 20:09 20:20 Latanya,in 50 mL NS, give Chr istopIsidra Hoskins R.N.wide open: 25 mg P.A.-C; Isidra Fried(NOW x1, HIGHALERTMEDICATION)Morphine IVP 4 mg 19:50 11/10/2019 Ack'd: 20:09 20:19 Latanya,(HIGH ALERT Isidra Jones R.N.MEDICATION) P.A.-C; Isidra FriedBenadryl 25 mg IVP 21:53 11/10/2019 Ack'd: 21:53 21:56 Pelaez,X1 dose: 25 mg Isidra Jones R.N.(NOW x1 ) PSulma; Isidra FriedGENERAL ORDERSOrder Description Priority Entered Acknowledged InitialedNPO 18:51 11/10/2019 18:52 Sunitha OneilC;Saline Lock 18:51 11/10/2019 18:53 Sunitha Castillo RN PYoselynALorne C;[Electronically signed by Re Kelly RN (23:42 11/10/2019)][Electronically signed by Yuli Jade P.A.-C (01:09 11/12/2019)][Electronically locked by Re Kelly RN (23:42 11/10/2019)] Name Value Range Interpretation Code Description Data Michelle rce(s) Supporting Document(s) ID Date Data Source [id number] 11/10/2019 06:10:00 PM EST [facility] 1 Medication Reconciliation Report [facility] Emergency Department [address] [place] [address] Phone #: ext- [phone] 11/10/2019 17:45 Patient: DAKOTA RAYMUNDO Sex: F : 1990 Age: 29yWeight: 83.4 kgHeight/Length: 61 in.BMI: 34.8ALLERGIES: None, ToradolThe patient's Home Medications are listed below:THE FOLLOWING MEDICATIONS NEED TO BE RECONCILED: Ibuprofen Oral (600 mg) 1 tablet, 3x a day, last dose: [id number] Safphris 20mg traZODone HCl Oral 200 mg, at bedtimeThe source(s) of the original Home Medication information:Not obtained.The following Medications were given to the patient in the Emergency Department:NS [IV] IV Fluids bolus 500 mL over 30 minute(s), then 100 mL/hr, administered: 11/10/2019 6:42:00 PMMorphine [IVP] IVP 4 mg diluted in NS 10 mL, administered: 11/10/2019 6:56:00 PMZofran [IVP] IVP 4 mg, administered: 11/10/2019 6:55:00 PMMorphine [IVP] IVP 4 mg, administered: 11/10/2019 8:10:00 PMPhenergan [IVPB] IVPB bolus 0, then 25 mg 100 mL/hr, administered: 11/10/2019 8:15:00 PMBenadryl [IVP] IVP 25 mg, administered: 11/10/2019 9:54:00 PMThe following Medications were prescribed to the patient:Zofran 4 mg tablet Take 1 tablet three times a day for 2 days -- Dispense 6 tablet. Refills: 0.Substitution permitted.[id number] - [address] [place] [address]. . 2 Medication Reconciliation Report [facility] Emergency Department [address] [place] [address] Phone #: ext- [phone] 11/10/2019 17:45 Patient: DAKOTA RAYMUNDO Sex: F : 1990 Age: 29ygabapentin 100 mg capsule Take 1 capsule three times a day for 2 days -- Dispense 6 capsule. Refills:0. Substitution permitted.[facility] [address] - [address] [place] [address]. FaxNumb er: . -- Yuli Jade P.A.-C Name Value Range Interpretation Code Description Data Michelle rce(s) Supporting Document(s) ID Date Data Source [id number] 11/10/2019 06:10:00 PM EST [facility] 1 Medication Administration Record [facility] Emergency Department [address] [place] [address] Phone #: ext- [phone] 11/10/2019 17:45 Patient: DAKOTA RAYMUNDO Sex: F : 1990 Age: 29yWeight: 83.4 kgHeight/Length: 61 inBMI: 34.8ALLERGIES: None, Toradol Date/Time Medication Administered Medication OrderedStart NS [IV] NS IV : Bolus 500 mL, then 08486:42 11/10/2019 Dose: IV Fluids mL/hrSunitha Castillo RN Rate: 100 mL/hr over 5 hour(s)---- Bolus: 500 mL over 30 minute(s)Stop Dispensed: 1000 mL bag23:11 11/10/2019 Site: #1 left Funmilayo Kelly RNGialaina ZOFRAN [IVP] (ONDANSETRON HCL) Zofran IVP 4 mg18:55 11/10/2019 Dose: 4 mg IVPDjudah Castillo RN Site: #1 left ACGiven MORPHINE [IVP] Morphine IVP 4 mg (HIGH ALERT18:56 11/10/2019 Dose: 4 mg IVP MEDICATION)Sunitha Castillo RN In: NS 10 mL Site: #1 left ACStart PHENERGAN [IVPB] Phenergan 25 mg in 50 mL NS,20:15 11/10/2019 Dose: 25 mg IVPB give wide open: 25 mg (NOW Latanya parker Jennifer, R.N. Rate: 100 mL/hr HIGH ALERT MEDICATION)---- Dispensed: 50 mL bagStop Site: #1 left AC20:26 11/10/2019Re Kelly RNGialaina MORPHINE [IVP] Morphine IVP 4 mg (HIGH ALERT20:10 11/10/2019 Dose: 4 mg IVP MEDICATION)Isidra Pelaez R.N. Site: #1 left ACGiven BENADRYL [IVP] (DIPHENHYDRAMINE Benadryl 25 mg IVP X1 dose: 2521:54 11/10/2019 HCL) mg (NOW x1)Isidra Pelaez R.N. Dose: 25 mg IVP Site: #1 left AC Name Value Range Interpretation Code Description Data Michelle rce(s) Supporting Document(s) ID Date Data Source [id number] 11/10/2019 06:10:00 PM EST [facility] 1 General Instructions [facility] Emergency Department [address] [place] [address] Phone #: ext- [phone] 11/10/2019 17:45 Patient: DAKOTA RAYMUNDO Sex: F : 1990 Age: 29yAcute generalized abdominal pain of unknown cause.Acute noninfectious gastroenteritis. ;abnormal CT of the abdomen and pelvis. (Incidental finding of a small 5mm lesion of L kidney consistantwith angiomyolipoma.).INSTRUCTIONSTake Tylenol (Acetaminophen) or Motrin (Ibuprofen) as needed for fever control. Take medicationaccording to label instructions. Do not work for two days.Drink plenty of fluids. No dietary restrictions.(Recommend to utilize OTC Motrin and Tylenol to control inflammation and pain management.Recommend to follow the instructions on the bottle and not to exceed.).Warnings: SEDATIVE MEDICATION: You were given sedative medication during your visit. Do not driveor operate dangerous machinery.GENERAL WARNINGS: Return or contact your physician immediately if your condition worsens orchanges unexpectedly, if not improving as expected, or if other problems ar ise.Prescription Medications:Zofran 4 mg tablet Take 1 tablet three times a day for 2 days -- Dispense 6 tablet. Refills: 0.Substitution permitted.[facility] [address] - [address] ; [place] [address]. .gabapentin 100 mg capsule Take 1 capsule three times a day for 2 days -- Dispense 6 capsule. Refills:0. Substitution permitted.[facility] [address] - [address] [place] [address]. .Follow-up:Return to the emergency department as needed. Follow up with your healthcare provider Recommend tof/u with PCP for furhter eval of CT findings. in three days if not better. Call for an appointment. Follow upwith a supervisor modern languages- as recommended by your health care provider. Reason for referral: evaluationand treatment.Understanding of the discharge instructions verbalized by patient. 2 General Instructions [facility] Emergency Department [address] [place] [address] Phone #: ext- [phone] 11/10/2019 17:45 Patient: DAKOTA RAYMUNDO Sex: F : 1990 Age: 29y ADDITIONAL INFORMATIONUnknown Causes of Abdominal Pain (Female)The exact cause of your belly (abdominal) pain is not clear. This does not mean that this is somethingto worry about. Everyone likes to know the exact cause of the problem. But sometimes with bellypain, there is no clear-cut cause, and this could be a good thing. The good news is that yoursymptoms can be treated, and you will feel better.Your condition does not seem serious now. But sometimes the signs of a serious problem may takemore time to appear. For this reason, it is important for you to watch for any new symptoms,problems, or worsening of your condition.Over the next few days, the abdominal pain may come and go. Or it may be constant. Other commonsymptoms can include nausea and vomi ting. Sometimes it can be difficult to tell if you feel nauseous.You may just feel bad and not connect that feeling to nausea. Constipation, diarrhea, and a fever maygo along with the pain.The pain may continue even if treated correctly over the following days. Depending on how things go,sometimes the cause can become clear and may need more or different treatment. Additionalevaluations, medicines, or tests may also be needed. 3 General Instructions [facility] Emergency Department [address] [place] [address] Phone #: ext- [phone] 11/10/2019 17:45 Patient: DAKOTA RAYMUNDO Sex: F : 1990 Age: 29yHome [facility] provider may prescribe medicine for pain, symptoms, or an infection. Follow thehealthcare provider's instructions for taking these medicines.General care Rest as much as you can until your next exam. No strenuous activities. Try to find positions that ease discomfort. A small pillow placed on the abdomen may help relieve pain. Something warm on your abdomen (such as a heating pad) may help, but be careful not to burn yourself.Diet Don't force yourself to eat, especially if having cramps, vomiting, or diarrhea. Water is important so you don't get dehydrated. Soup may also be good. Sports drinks may also help, especially if they are not too acidic. Don't drink sugary drinks as this can make things worse. Take liquids in small amounts. Don't guzzle them. Caffeine sometimes makes the pain and cramping worse. Don't take dairy products if you have vomiting or diarrhea. Don't eat large amounts at a time. Wait a few minutes between bites. Eat a diet low in fiber (called a low-residue diet). Foods allowed i nclude refined breads, white rice, fruit and vegetable juices without pulp, tender meats. These foods will pass more easily through the intestine. Don't have whole-grain foods, whole fruits and vegetables, meats, seeds and nuts, fried or fatty foods, dairy, alcohol and spicy foods until your symptoms go away.Follow-up careFollow up with your healthcare provider, or as advised, if your pain does not begin to improve in thenext 24 hours.Call [phone] if any of these occur: Trouble breathing Confusion 4 General Instructions [facility] Emergency Department [address] [place] [address] Phone #: ext- [phone] 11/10/2019 17:45 Patient: DAKOTA RAYMUNDO Sex: F : 1990 Age: 29y Fainting or loss of consciousness Rapid heart rate SeizureWhen to seek medical adviceCall your healthcare provider right away if any of these occur: Pain gets worse or moves to the right lower abdomen New or worsening vomiting or diarrhea Swelling of the abdomen Unable to pass stool for more than 3 days Fever of 100.4F (38C) or higher, or as directed by your healthcare provider. Blood in vomit or bowel movements (dark red or black color) Yellow color of eyes and skin (jaundice) Weakness, dizziness Chest, arm, back, neck, or jaw pain Unexpected vaginal bleeding or missed period Can't keep down liquids or water and you are getting dehydrated [id number] [employer] [address] [place] [address], [place] [address]. All rights reserved. This information is not intended as asubstitute for professional medical care. Always follow your healthcare professional's instructions.Noninfectious Gastroenteritis (Adult) 5 General Instructions [facility] Emergency Department [address] [place] [address] Phone #: ext- [phone] 11/10/2019 17:45 Patient: DAKOTA RAYMUNDO Sex: F : 1990 Age: 29y Gastroenteritis can cause nausea, vomiting, diarrhea, andcramping in the belly. This may occur from food sensitivity, inflammation of your gastrointestinal tract,medicines, stress, or other causes not related to infection. Your symptoms will usually last from 1 to 3days, but can last longer. Antibiotics are not effective, but simple home treatment will be helpful.Home careMedicine You may use acetaminophen or NSAID medicines like ibuprofen or naproxen to control fever, unless another medicine is prescribed. (Note: If you have chronic liver or kidney disease, or ever had a stomach ulcer or gastrointestinaI bleeding, talk with your healthcare provider before using these medicines.) Aspirin should never be used in anyone under 18 years of age who is ill with a fever. It may cause severe liver damage. Don't increase your NSAID medicines if you are already taking these medicines for another condition (like arthritis). Don't use NSAIDS if you are on aspirin (such as for heart disease, or after a stroke). If medicines for diarrhea or vomiting are prescribed, take only as directed.General care and preventing spread of the illness 6 General Instructions [facility] Emergency Department [address] [place] [address] Phone #: ext- [phone] 11/10/2019 17:45 Patient: DAKOTA RAYMUNDO Sex: F : 1990 Age: 29y If symptoms are severe, rest at home for the next 24 hours or until you feel better. Hand washing with soap and water is the best way to prevent the spread of infection. Wash your hands after touching anyone who is sick. Wash your hands after using the toilet and before meals. Clean the toilet after each use. Caffeine, tobacco, and alcohol can make your diarrhea, cramping, and pain worse.Diet Water and clear liquids are important so you do not get dehydrated. Drink a small amount at a time. Don't force yourself to eat, especially if you have cramps, vomiting, or diarrhea. When you finally decide to start eating, do not eat large amounts at a time, even if you are hungry. If you eat, avoid fatty, greasy, spicy, or fried foods. Don't eat dairy products if you have diarrhea; they can make the diarrhea worse.During the first 24 hours (the first full day), follow the diet below: Beverages: Water, clear liquids, soft drinks without caffeine, like braxton aric; mineral water (plain or flavored); decaffeinated tea and coffee. Soups: Clear broth, consomm, and bouillon sports drinks aren't a good choice because they have too much sugar and not enough electrolytes. In this case, commercially available products called oral rehydration solutions are best. Desserts: Plain gelatin, ice pops, and fruit juice barsDuring the next 24 hours (the second day), you may add the following to the above if you haveimproved. If not, continue what you did the first day: Hot cereal, plain toast, bread, rolls, crackers Plain noodles, rice, mashed potatoes, chicken noodle or rice soup Unsweetened canned fruit and bananas (don't eat pineapple or citrus) Limit caffeine and chocolate. No spices or seasonings except salt.During the next 24 hours Gradually resume a normal diet, as you feel better and your symptoms improve. If at any time your symptoms start getting worse, go back to clear liquids until you feel better. 7 General Instructions [facility] Emergency Department [address] [place] [address] Phone #: ext- [phone] 11/10/2019 17:45 Patient: DAKOTA RAYMUNDO Sex: F : 1990 Age: 29yFood preparation If you have diarrhea, you should not prepare food for others. When you prepare food for yourself, wash your hands before and after. Wash your hands after using cutting boards, countertops, and knives that have been in contact with raw food. Keep uncooked meats away from cooked and [id number] foods.Follow-up careFollow up with your healthcare provider if you are not improving over the next 2 to 3 days, or asadvised. If a stool (diarrhea) sample was taken, call for the results as directed.Call [phone] if any of these occur: Trouble breathing Chest pain Confusion Severe drowsiness or trouble awakening Seizure Stiff neckWhen to seek medical adviceCall your healthcare provider right away if any of these occur: Increasing belly pain or constant lower right belly pain Continued vomiting (unable to keep liquids down) Frequent diarrhea (more than 5 times a day) Blood in vomit or stool (black or red color) Inability to tolerate solid food after a few days. Dark urine, reduced urine output Weakness, dizziness Drowsiness 8 General Instructions [facility] Emergency Department [address] [place] [address] Phone #: ext- [phone] 11/10/2019 17:45 Patient: DAKOTA RAYMUNDO Sex: F : 1990 Age: 29y Fever of 100.4F (38.0C) or higher, or as directed by your healthcare provider Sterling joaquin [phone] [employer] [address] [place] [address], [place] [address]. All rights reserved. This informat ion is not intended as asubstitute for professional medical care. Always follow your healthcare professional's instructions. You have been given the following additional information: Abdominal Pain, Unknown Cause, (Female) Gastroenteritis, Noninfectious Do not work for two days.(Electronically signed by Yuli Jade P.A.-C 11/12/2019 01:09) Name Value Range Interpretation Code Description Data Michelle rce(s) Supporting Document(s) ID Date Data Source [id number] 11/10/2019 06:10:00 PM EST [facility] 1 Clinical Report - Nurses [facility] Emergency Department [address] [place] [address] Phone #: ext- [phone] 11/10/2019 17:45 Patient: DAKOTA RAYMUNDO Sex: F : 1990 Age: 29yTRIAGEArrived by private vehicle. Historian: patient. Accompanied by family. ( right lower abd pain, umbillicuspain and flank pain).Acuity: LEVEL 3.Chief Complaint: ABDOMINAL PAIN, NAUSEA, VOMITING and DIARRHEA and (flank pain bilateral).Alert. No acute distress.This started yesterday. The patient has had nausea, vomiting, diarrhea and abdominal pain. 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 (1600).SEPSIS SCREEN: Negative (no infection suspected/documented). --17:53 11/10/19 Lucretia Barnes R.N.17:49 11/10/19. BP: 113/74. MAP: 87. HR: 91. RR: 20. O2 saturation: 95%. Temp: 98.6 F. Pain level now:06/06. --17:53 11/10/19 Lucretia Barnes R.N.Weight: 83.4 kg stated. Height/Length: 61 inches Per Patient. BMI: 34.8. --17:48 11/10/19 Lucretia Barnes R.N.MedicationsIbuprofen Oral (Tablet 600 mg) 1 tablet, 3x a day, last dose [id number]. Safphris 20mg. traZODone HCl Oral 200 mg, at bedtime. --18:12 11/10/19 Lucretia Barnes R.N.AllergiesNone. --17:50 11/10/19 Lucretia Barnes R.N.Toradol.(nausea, vomiting) --18:12 11/10/19 Lucretia Barnes R.N.PROBLEMS:Contusion.Bipolar Disorder.Abdominal Pain.Back Pain.Dental Caries.Insomnia.Ovarian Cyst.Endometriosis.Depression.Fall. --18:12 11/10/19 Lucretia Barnes R.N. 2 Clinical Report - Nurses [facility] Emergency Department [address] [place] [address] Phone #: ext- [phone] 11/10/2019 17:45 Patient: [id number] Sex: F : 1990 Age: 29y ADDITIONAL SURGERIES: Colonoscopy. Colostomy. Hysterectomy. Tonsillectomy. Total colectomy. Tubal Ligation. --18:12 11/10/19 Lucretia Barnes R.N. History PAST MEDICAL HX: Immunizations: up-to-date. Last normal menstrual period- Jun 02. The patient has had a hysterectomy. SOCIAL HX: Never smoker. History of heavy drug use: marijuana. No alcohol use. The patient was offered HIV testing but declined and hepatitis C testing but declined. The patient has not traveled outside the [place] Infectious disease exposure: No infectious disease exposure. Patient is not a known carrier of tuberculosis, hepatitis, HIV, MRSA or VRE. Patient is not a known carrier of CRE. SELF HARM ASSESSMENT: Self harm assessment was performed. The patient answered "no" to the question(s) "Have you recently felt down, depressed, or hopeless?", "Do you have thoughts of harming or killing yourself?", "Do you have a plan for harming or killing yourself?", "Have you recently had thoughts about harming or killing others?", "Do you have any dangerous items in your possession?", "Have you noticed less interest or pleas ure in doing things?", "Are you here because you tried to hurt yourself?" and "Have you ever tried to hurt yourself before today?". ABUSE ASSESSMENT: Abuse assessment. Abuse denied. No suspicion of abuse. No report of abuse. NUTRITIONAL RISK ASSESSMENT: The nutritional risk assessment revealed no deficiencies. FUNCTIONAL ASSESSMENT: Functional assessment: no impairments noted. LEARNING NEEDS ASSESSMENT: The learning needs assessment revealed no barriers. FALL RISK ASSESSMENT: Fall risk assessment completed. No risk factors identified. SKIN INTEGRITY ASSESSMENT: Skin integrity risk assessment completed. No skin integrity risk identified. --17:53 11/10/19 Lucretia Barnes R.N. Interventions Identification band on patient. To treatment room. --17:53 11/10/19 Lucretia Barnes R.N.PHYSICAL [id number] 11/10/19. Ambulatory to room.GENERAL / NEURO / PSYCH: Alert. Oriented X 4. Appears in no acute distress. 3 Clinical Report - Nurses [facility] Emergency Department [address] [place] [address] Phone #: ext- [phone] 11/10/2019 17:45 [facility]: [id number] Sex: F : 1990 Age: 29y HEENT: Mucous membranes are pink. RESPIRATORY: Respirations not labored. Breath sounds within normal limits. GI / : The patient has had nausea . Emesis noted. (x 3 today). The patient has diarrhea (brown). This has occurred numerous times. It has been watery. Abdomen soft. Abdominal tenderness in the lower abdomen. Bowel sounds within normal limits. SKIN: Skin is warm and dry. --17:58 11/10/19 Sunitha Castillo RN.NURSING PROGRESS NOTES17:55 11/10/19. Patient gowned. Head of bed elevated. Two patient identifiers checked. Call lightplaced in reach. Side rails up. Bed placed in lowest position. Brakes of bed on. Patient ready forevaluation- ED physician and PA notified. --17:55 11/10/19 Sunitha Castillo RN 18:35 11/10/2019 Site #1 started via IV in the left antecubital space with an 20g angiocath, with aseptic technique and good blood return; one attempt. Saline lock flushed with 10 mL saline. --18:40 11/10/19 Sunitha Castillo RN 18:42 11/10/2019 Started bag #1 1000 mL IV Fluids NS; bolus of 500 mL over 30 minute(s) then at 100 mL/hr over 5 hour(s) via site #1 via IV pump. Allergies verified and confirmed 5 rights. IV patency established. IV site checked: no pain, redness, or swelling. IV flushed thoroughly pre- and post- medication administration. Information reviewed with patient including reason for taking this medication, signs of allergic reaction and precautions. Verbalizes understanding. Completed per protocol. --18:54 11/10/19 Sunitha Castillo RN 18:55 11/10/2019 Zofran (Ondansetron HCl) IVP 4 mg given over 1 minute(s) via site #1. IV patency established. IV site checked: no pain, redness, or swelling. IV flushed thoroughly pre- and post-medication administration. IVP given by RN. Information reviewed with patient including winston son for taking this medication, signs of allergic reaction and precautions. Verbalizes understanding. --19:03 11/10/19 Sunitha Castillo RN 18:55 11/10/19. Reassessment after medication administered. Pain still present but improving. Reassessment after fluids administered. She is calm and resting quietly and has had no adverse reaction. --19:25 11/10/19 Sunitha Castillo RN 18:56 11/10/2019 Morphine IVP 4 mg given diluted in NS 10mL over 3 minute(s) via site #1. Allergies verified and confirmed 5 rights. IV patency established. IV site checked: no pain, redness, or swelling. IV flushed thoroughly pre- and post- medication administration. IVP given by RN. Information reviewed with patient including reason for taking this medication, signs of allergic reaction, precautions and sedative warning. Verbalizes understanding. --19:03 11/10/19 Sunitha Castillo RN 19:25 11/10/19. Care transferred and report given (Omaira Pelaez RN). --19:25 11/10/19 Sunitha Castillo RN 19:33 11/10/19. BP: 114/74. MAP: 87. HR: 66. RR: 16. O2 saturation: 95%. Temp: 97.5 F. Pain level now: 04/06. --19:34 11/10/19 Denis Pandya R.N. 4 Clinical Report - Nurses [facility] Emergency Department [address] [place] [address] Phone #: ext- [phone] 11/10/2019 17:45 ----- Patient: DAKOTA RAYMUNDO Sex: F : 1990 Age: 29y 19:41 11/10/19. ( pt reporting increasing pain and nausea, provider made aware). --19:41 11/10/19 Isidra Pelaez R.N. 20:10 11/10/2019 Morphine IVP 4 mg given over 4 minute(s) via site #1. Allergies verified and confirmed 5 rights. IV patency established. IV site checked: no pain, redness, or swelling. IV flushed thoroughly pre- and post-medication administration. IVP given by RN. Information reviewed with patient including reason for taking this medication, signs of allergic reaction, precautions and sedative warning. Verbalizes understanding. --20:19 11/10/19 Isidra Pelaez R.N. 20:15 11/10/2019 Started 25 mg of Phenergan IVPB in bag #1 50 mL; at 100 mL/hr via site #1. via IV pump. Allergies verified and confirmed 5 rights. IV patency established. IV s ite checked: no pain, redness, or swelling. IV flushed thoroughly pre- and post- medication administration. Information reviewed with patient including reason for taking this medication, signs of allergic reaction and precautions. Verbalizes understanding. --20:20 11/10/19 Isidra Pelaez R.N. 20:21 11/10/19. Reassessment after medication administered. Pain still present but improving. GENERAL / NEURO / PSYCH: The patient is somnolent and is oriented. --20:21 11/10/19 Isidra Pelaez R.N. 21:49 11/10/19. BP: 119/82. MAP: 94. HR: 76. RR: 18. O2 saturation: 96% on room air. Temp: 97.4 F (oral). Pain level now: 06/06. --21:52 11/10/19 Isidra Pelaez R.N. 21:52 11/10/19. GENERAL / NEURO / PSYCH: The patient is somnolent. Decreased awareness (drowsy). HEENT: Pupillary exam: Right pupil constricted. Left pupil: constricted. GI / : The patient reports nausea is gone now. The patient reports abdominal pain (pt reports pain improved to a 6/10 but is now an 8/10, provider made aware). Call light placed in reach of patient. Side rails up x 1. Bed placed in lowest position. Brakes of bed on. --21:52 11/10/19 Isidra Pelaez R.N. 21:54 11/10/2019 Benadryl (diphenhydrAMINE HCl) IVP 25 mg given over 1 minute(s) via site #1. Allergies verified and confirmed 5 rights. IV patency established. IV site checked: no pain, redness, or swelling. IV flushed thoroughly pre- and post-medication administration. IVP given by RN. Information reviewed with patient including reason for taking this medication, signs of allergic reaction, precautions and sedative warning. Verbalizes understanding. --21:56 11/10/19 Isidra Pelaez R.N.DISPOSITION / DISCHARGE 23:12 11/10/19. BP: 127/84. MAP: 98. HR: 71. RR: 17. O2 saturation: 97%. Temp: 98.2 F. Pain level now: 05/06. --23:16 11/10/19 Re Kelly RN Condition at departure: stable. No learning barriers present. Discharge instructions provided and reviewed. Reviewed medication(s) side effects, precautions, dosing and course information. Verbalized understanding. Written instructions provided. The patient was discharged by the physician assistant purchasing manager. 5 Clinical Report - Nurses [facility] Emergency Department [address] [place] [address] Phone #: ext- [phone] 11/10/2019 17:45 --------- Patient: DAKOTA RAYMUNDO Sex: F : 1990 Age: 29y She was discharged home and accompanied by spouse. She left ambulatory and via private vehicle. Spouse driving. Medication list reviewed and validated. --23:16 11/10/19 Re Kelly RN Departure time: 23:20 11/10/2019. --23:26 11/10/19 Re Kelly RN 20:26 11/10/2019 Phenergan IVPB via IV site #1 Discontinued. Total amount infused: 25 mL. --23:27 11/10/19 Re Kelly RN 23:11 11/10/2019 IV Fluids NS via IV site #1 Discontinued. Total amount infused: 750 mL. IV patency established. IV site checked: no pain, redness, or swelling. IV flushed thoroughly. --23:26 11/10/19 Re Kelly RN 23:16 11/10/2019 Site #1 removed upon discharge. Manual pressure and bandage applied. --23:26 11/10/19 Re Kelly RN.Locked/Released at 11/10/2019 23:42 by Re Kelly RN Name Value Range Interpretation Code Description Data Michelle rce(s) Supporting Document(s) ID Date Data Source [id number] 11/10/2019 06:10:00 PM EST [facility] 1 Clinical Report - Physicians/Mid Levels [facility] Emergency Department [address] [place] [address] Phone #: ext- [phone] 11/10/2019 17:45 Patient: DAKOTA RAYMUNDO [facility]#: [id number] Sex: F : 1990 Age: 29y Time Seen: 18:50 11/10/2019; initial patient contact, initial documentation. Arrived- By private vehicle. (Dropped off by family). Historian- patient.HISTORY OF PRESENT ILLNESS Chief Complaint: ABDOMINAL PAIN. This started today and is still present. It is described as "pain", sharp, cramping and dull and it is described as generalized in location and located in the upper abdomen and in the lower abdomen. The patient has had nausea, loss of appetite, vomiting and diarrhea. Similar symptoms previously. Recent medical care: The patient was seen recently by a health care provider.REVIEW OF SYSTEMSHas had a hysterectomy. No constipation, black stools, hematemesis, difficulty with urination or pain withurination. No urinary frequency, bloody stools, fever, headache or sore throat. No blurred vision, chestpain, difficulty breathing, cough or joint pain. No skin rash, chills or back pain. The patient has not hadweight loss.PAST HISTORYSee nurses notes. Problems: Other Disease. Contusion. Bipolar Disorder. Abdominal Pain. Back Pain. Dental Caries. Insomnia. Ovarian Cyst. Endometriosis. Depression. Fall. Dental Pain [Resolved]. Constipation [Resolved]. Contusion [Resolved]. Pelvic Inflammatory Disease [Resolved]. UTI - Urinary Tract Infection [Resolved]. Pyelonephritis [RuleOut]. Additional Surgeries: 2 Clinical Report - Physicians/Mid Levels [facility] Emergency Department [address] [place] [address] Phone #: ext- [phone] 11/10/2019 17:45 Patient: DAKOTA RAYMUNDON: [id number] [facility]#: [id number] Sex: F : 1990 Age: 29y Bowel Surgery. Colonoscopy. Colostomy. Hysterectomy. Tonsillectomy. Total colectomy. Tubal Ligation. Medications: Ibuprofen Oral (Tablet 600 mg) 1 tablet, 3x a day, last dose [id number]. Safphris 20mg. traZODone HCl Oral 200 mg, at bedtime. Allergies: None. Toradol.(nausea, vomiting).SOCIAL HISTORYNever smoker. History of drug use: marijuana. No alcohol use.ADDITIONAL NOTESThe [facility] have been reviewed.PHYSICAL EXAMVital Signs: 11/10/2019 17:49 BP: 113/74. MAP: 87. HR: 91. RR: 20. O2 saturation: 95%. Temp: 98.6 F.Pain level now: 06/06. Have been reviewed. Oxygen saturation normal.Appearance: Alert. Oriented X3. No acute distress.ENT: Normal ENT inspection. Airway intact. TM's normal. Ears normal. Nose normal. Nares normal.Pharynx normal. Moist mucous membranes. Uvula midline. Voice normal.Neck: Normal inspection. Neck supple.CVS: Normal heart rate and rhythm. No JVD present. Pulses normal. Capillary refill normal. Strongperipheral pulses. Heart sounds normal. Pulses: right radial 2+; left radial 2+; right dorsalis pedis 2+; leftdorsalis pedis 2+; right posterior tibial 2+; left posterior tibial 2+.Respiratory: Chest normal on inspection. No respiratory distress. Unlabored respirations. Lungs clear.Good chest movement. Breath sounds normal and equal.Abdomen: Soft. Tenderness in the right and left side of the abdomen and right lower quadrant. Positivepsoas sign. No guarding or Aaron's sign present. Bowel sounds normal. No distention.Back: Normal inspection. No CVA tenderness.Skin: Skin warm and dry. No rash.Extremities: Extremities exhibit normal ROM. No lower extremity edema. No calf tenderness. No lowerextremity edema.Neuro: Awake. Alert. Mood/affect normal. Speech normal. No motor deficit. No sensory deficit.Psych: Cognition normal. Thought process and content normal. Insight and judgement normal.LABS, X-RAYS, AND EKG 3 Clinical Report - Physicians/Mid Levels [facility] Emergency Department [address] [place] [address] Phone #: [phone] 11/10/2019 17:45 Patient: DAKOTA RAYMUNDO Sex: F : 1990 Age: 29yLaboratory Tests:CBC w Diff: (CASSIE: 11/10/2019 19:05) ( MsgRcvd 11/10/2019 19:32) Final results Test Result Flag Units (Reference) CBC W/AUTOMATED DIFF COMPLETE BLOOD COUNT WBC 6.2 10/uL (4.2 - 11.0) RBC 4.13 L 10/uL (4.20 - 5.40) HEMOGLOBIN 12.0 g/dL (12.0 - 16.0) HEMATOCRIT 37.0 % (37.0 - 47.0) MCV 89.6 fL (81.0 - 101) MCH 29.1 pg (27.0 - 34.0) MCHC 32.4 g/dL (31.0 - 36.0) RDW 13.3 % (11.5 - 14.5) PLATELETS 251 10/uL (150 - 450) MPV 9.8 fL (7.4 - 10.4) NEUT 55.4 % (37.0 - 80.0) LYMPH 35.3 % (25.0 - 40.0) MONO 5.5 % (3.0 - 8.0) EOS 2.7 % (0.0 - 7.0) BASO 0.8 % (0.0 - 2.5) %IG 0.3 H % (0.0 - 0.0) %NRBC 0.0 % (0.0 - 0.0) #NEUT 3.45 10/uL (2.00 - 6.90) #LYMPH 2.20 10/uL (0.60 - 3.40) #MONO 0.34 10/uL (0.00 - 0.90) #EOS 0.17 10/uL (0.00 - 0.70) #BASO 0.05 10/uL (0.00 - 0.20) #IG 0.02 10/uL (0.00 - 0.10) #NRBC 0.00 10/uL (0.00 - 0.00) MANUAL DIFF NOT INDICATED RBC MORPH NOT INDICATEDCMP: (CASSIE: 11/10/2019 19:05) ( MsgRcvd 11/10/2019 20:29) Final results Test Result Flag Units (Reference) COMPREHENSIVE METABOLIC PANEL COMPREHENSIVE METABOLIC PANEL SODIUM 142 mEq/L (134 - 153) POTASSIUM 4.4 mEq/L (3.6 - 5.0) CHLORIDE 106 mEq/L (98 - 107) CO2 23 MEQ/L (22 - 30) GLUCOSE 85 MG/DL (65 - 110) BUN 10 MG/DL (7 - 21) CREATININE 0.7 MG/DL (0.7 - 1.5) BUN/CREAT 14 (8 - 27) TOTAL PROTEIN 5.8 L G/DL (6.3 - 8.2) ALBUMIN 3.9 G/DL (3.9 - 5.0) GLOBULIN 1.9 L GM/DL (2.4 - 3.2) A/G RATIO 2.1 H (0.8 - 2.0) CALCIUM 9.5 MG/DL (8.4 - 10.2) TOTAL BILI 0.7 MG/DL (0.2 - 1.3) ALKALINE PHOS 84 U/L (38 - 126) SGOT/AST 14 U/L (5 - 40) SGPT/ALT 9 U/L (7 - 56) ANION GAP 13.0 mmol/L (8.0 - 16.0) AGE 30 yrs NON- AA GFR >60 mL/min AFR AMER GFR >60 mL/min Male GFR Interprentation 20-49 yrs >60 mL/min Rvfvve45-38 yrs >56 mL/min Normal 60- 69 yrs >49 mL/min Normal 70-79yrs>42 mL/min Normal 80 and above >35 mL/min Normal Female GFRInterpretation 20-39 yrs >60 mL/min Normal 40-49 yrs >58 mL/minNormal 50-59 yrs >51 mL/min Normal 60-69 yrs >45 mL/min Qiablu46-69 yrs >39 mL/min Normal 80 and above >32 mL/min Normal 4 Clinical Report - Physicians/Mid Levels [facility] Emergency Department [address] [place] [address] Phone #: ext- [phone] 11/10/2019 17:45 Patient: DAKOTA RAYMUNDO Sex: F : 1990 Age: 29y Lipase: (CASSIE: 11/10/2019 19:05) ( [facility] 11/10/2019 20:29) Final results Test Result Flag Units (Reference) LIPASE 53 U/L (13 - 60) Urinalysis: (CASSIE: 11/10/2019 18:25) ( MsgRcvd 11/10/2019 19:15) Final results Test Result Flag Units (Reference) URINALYSIS URINALYSIS SOURCE R COLOR yellow (NORMAL: Yello CLARITY clear (NORMAL: Clear SPEC GRAVITY 1.010 (1.001 - 1.030 pH 6.5 (5 - 9) GLUCOSE NORM (NORMAL: Negat BILIRUBIN NEG (NORMAL: Negat KETONE NEG (NORMAL: Negat PROTEIN NEG (NORMAL: Negat NITRITE NEG (NORMAL: Negat BLOOD NEG (NORMAL: Negat LEUK EST NEG (NORMAL: Negat UROBILINOGEN NOR (less than 1.0 MICROSCOPIC Not Indicate Lactic Acid: (CASSIE: 11/10/2019 19:05) ( [facility] 11/10/2019 19:34) Final results Test Result Flag Units (Reference) LACTIC ACID 1.8 MMOL/L (0.2 - 2.2) PT/INR: (CASSIE: 11/10/2019 19:05) ( MsgRcvd 11/10/2019 19:38) Final results Test Result Flag Units (Reference) PROTIME 12.1 SECONDS (11.0 - 15.5) INR 0.89 L (0.93 - 1.23) \\BLDo\\INR INTERPRETATION\\BLDx\\ Therapeutic range for Coumadin and related oral anticoagulants. -International Normalized Ratio (INR): 2.0 - 3.0 for Venous Thrombosis, Pulmonary Embolus, Tissue heart valves, Acute SD, Atrial Fibrillation, Valvular heart disease and recurrent Systemic Embolism. -International Normalized Ratio (INR): 2.5 - 3.5 for Mechanical Prosthetic valve..PROGRESS AND PROCEDURESCourse of Care: VSS, NAD, AOx3, interacting well and appropriately, no use of accessory muscle, able tospeak full sentences, stable, non-toxic looking. Enter room and pt lying peacefully in bed in NAD. Patient stable. Denies any new issues, concerns, or complaints. PE dmeos NV itnact b/l UE and LE. Noted TTP of the abd. Pt has hx of resection (total colonectomy); no bag. Sts that small intestine connect directly to anus. Will obtian labs and imaging for further eval. Pending results. Reviewed results. Discussed with attending. Contacted NH and discussed. Will discharge. No appy 2/2 abd surgery. 5 Clinical Report - Physicians/Mid Levels [facility] Emergency Department [address] [place] [address] Phone #: ext- [phone] 11/10/2019 17:45 Patient: DAKOTA RAYMUNDO Sex: F : 1990 Age: 29y Enter room and patient lying and sleeping peacefully in bed in NAD and easily awakened. Patient stable. Denies any new issues, concerns, or complaints. Discussed results with pt. Discussed tx plan with pt. Discussed and counseled on stable condition. Discussed importance of a f/u with PCP. Discussed return to ER criteria. Answered their questions. Indicates and verbalizes that they understand, agree, and will comply with above. Denies any new questions or concerns. Patient has capacity to understand. Discharge decision based on the following: patient's condition is stable; patient's exam is stable; social support is adequate; transportation is available; follow-up is available. Discussed of OTC Motrin and Tylenol to control inflammation and pain management. Informed to follow directions on bottle that are appropriate for age and/or weight. Disposition: Discharged home in good and improved condition. Condition: good and stable.CLINICAL IMPRESSION Acute generalized abdominal pain of unknown cause. Acute noninfectious gastroenteritis. ; abnormal CT of the abdomen and pelvis. (Incidental finding of a small 5mm lesion of L kidney consistant with angiomyolipoma.).INSTRUCTIONS Take Tylenol (Acetaminophen) or Motrin (Ibuprofen) as needed for fever control. Take medication according to label instructions. Do not work for two days. Drink plenty of fluids. No dietary restrictions. (Recommend to utilize OTC Motrin and Tylenol to control inflammation and pain management. Recommend to follow the instructions on the bottle and not to exceed.). Warnings: SEDATIVE MEDICATION: You were given sedative medication during your visit. Do not drive or operate dangerous machinery. GENERAL WARNINGS: Return or contact your physician immediately if your condition worsens or changes unexpectedly, if not improving as expected, or if other problems arise. Prescription Medications: Zofran 4 mg tablet Take 1 tablet three times a day for 2 days -- Dispense 6 tablet. Refills: 0. Substitution permitted. Pharmacy - [id number] - [address] [place] [address]. . 6 Clinical Report - Physicians/Mid Levels [facility] Emergency Department [address] [place] [address] Phone #: ext- [phone] 11/10/2019 17:45 Patient: DAKOTA RAYMUNDO Sex: F : 1990 Age: 29y gabapentin 100 mg capsule Take 1 capsule three times a day for 2 days -- Dispense 6 capsule. Refills: 0. Substitution permitted. Pharmacy - [id number] - [address] ; [place] [address]. . Follow-up: Return to the emergency department as needed. Follow up with your healthcare provider Recommend to f/u with PCP for furhter eval of CT findings. in three days if not better. Call for an appointment. Follow up with a supervisor modern languages- as recommended by your health care provider. Reason for referral: evaluation and treatment. Understanding of the discharge instructions verbalized by patient.(Electronically signed by Yuli Jade P.A.-C 11/12/2019 01:09) Name Value Range Interpretation Code Description Data Michelle rce(s) Supporting Document(s) ID Date Data Source [id number] 11/10/2019 10:42:00 [place] [address] ---------NAME--------- NUMBER SEX AGE ADMIT DISC. XRAY# F/C TYPE DEONNA Colbert [id number] F 29 11/10/19 [id number] X6B E/R DATE OF : 1990 M/R# [id number] #: [id number] TR-1A LOCATION: EMERGENCY DEPT TRANSCRIBED: 11/10/19 22:[address] ABD //T// PELVIS W/ IV ONLY [id number] COMPLETED:11/10/19 21:21 KJE [id number] Reason(s): Abdominal Pain PHYSICIAN: PREM JADE CH = R A D I O L O G Y R E P O R T PATIENT HISTORY:Abdominal Pain ACC DLP- 962.7mGy*cmPatient hx of hysterectomy. Time Out performed. Correct patient with 2identifiers, Isovue 370 and 75mL of contrast used, Lot [id number], Exp 07/19,correct body part and side all verified prior to examination. Exam has been sent to [facility] - If further informationis needed, the number is . Report will be faxed to ED and/or Xray.kje / SAGITTAL (DICOM Hx)CT Abdomen/PelvisHistory:Abdominal Pain ACC DLP- 962.7mGy*cm Patient hx of hysterectomy. Time Outperformed. Correct patient with 2 identifiers, Isovue 370 and 75mL of contrastused, Lot [id number], Exp 07/19, correct body part and side all verified prior toexamination. Exam has been sent to [facility] - If furtherinformation is needed, the number is . Report will be faxed to EDand/or Xray. kje (Hx) / SAGITTAL (DICOM Hx)Technique:CT ABD //T// PELVIS W/ IV ONLYDose length product (mGy-cm): Not providedReformations: OtherContrast: With; Isovue 370 and 75mL of contrast used, Lot [id number], Exp 07/19Comparison: CTFindings:There are normal appearing stomach, liver, gallbladder, pancreas and bilateraladrenal glands.Normal spleen.Left kidney 5 mm low-density lesion consistent with an angiomyolipoma.Normal right kidney.Bladder appears normal.Hysterectomy.The appendix is not seen on this exam.Normal small bowel.Dilated colon at lower abdominal anastomosis likely due todenervated/defunctionalized state.Very mild gaseous distention of the colon. No air-fluid levels or definitiveobstruction.Colon is otherwise unremarkable.Minimal dependent atelectasis lower lobes bilaterally.There is no aggressive bony lesion.IMPRESSIONS:Dilated colon at lower abdominal anastomosis likely due todenervated/defunctionalized state.Very mild gaseous distention of the colon.Left kidney 5 mm low-density lesion consistent with an angiomyolipoma.While performing the above CT examination, radiation dose reduction wasaccomplished utilizing automated exposure control, adjusting of the mA and kVbased on the patient's body size and/or the use of imperative reconstructivetechniques.Electronically Signed By:Willie Sno M.D. , RadiologistDate/Time: 11/10/19 22:42 Name Value Range Interpretation Code Description Data Michelle rce(s) Supporting Document(s) ID Date Data Source [id number] 11/10/2019 08:29:00 PM [facility] Name Value Range Interpretation Code Description Data Michelle rce(s) Supporting Document(s) Lipase [Enzymatic activity/volume] in Serum or Plasma 53 U/L 13 - 60 [facility] ID Date Data Source [id number] 11/10/2019 08:29:00 PM [facility] Name Value Range Interpretation Code Description Data Michelle rce(s) Supporting Document(s) COMPREHENSIVE METABOLIC PANEL [facility] COMPREHENSIVE METABOLIC PANEL Sodium [Moles/volume] in Serum or Plasma 142 mEq/L 134 - 153 [facility] Potassium [Moles/volume] in Serum or Plasma 4.4 mEq/L 3.6 - 5.0 [facility] Chloride [Moles/volume] in Serum or Plasma 106 mEq/L 98 - 107 [facility] Carbon dioxide, total [Moles/volume] in Serum or Plasma 23 MEQ/L 22 - 30 [facility] Glucose [Mass/volume] in Serum or Plasma 85 MG/DL 65 - 110 [facility] BUN 10 MG/DL 7 - [facility] Creatinine [Mass/volume] in Serum or Plasma 0.7 MG/DL 0.7 - 1.5 [facility] BUN/CREAT 14 8 - 27 [facility] Protein [Mass/volume] in Serum or Plasma 5.8 G/DL 6.3 - 8.2 L [facility] Albumin [Mass/volume] in Serum or Plasma 3.9 G/DL 3.9 - 5.0 [facility] Globulin [Mass/volume] in Serum by calculation 1.9 GM/DL 2.4 - 3.2 L [facility] A/G RATIO 2.1 0.8 - 2.0 H [facility] Calcium [Mass/volume] in Serum or Plasma 9.5 MG/DL 8.4 - 10.2 [facility] Bilirubin.total [Mass/volume] in Serum or Plasma 0.7 MG/DL 0.2 - 1.3 [facility] Alkaline phosphatase [Enzymatic activity/volume] in Serum or Plasma 84 U/L 38 - 126 [facility] Aspartate aminotransferase [Enzymatic activity/volume] in Serum or Plasma 14 U/L 5 - 40 [facility] Alanine aminotransferase [Enzymatic activity/volume] in Seru m or Plasma 9 U/L 7 - 56 [facility] Anion gap 3 in Serum or Plasma 13.0 mmol/L 8.0 - 16.0 [facility]GE 29 y[facility] GFR >60 mL/min [facility] ital AFR AMER GFR >60 mL/min [facility] Male GFR In terprentation 20-49 yrs >60 mL/min Normal 50-59 yrs >56 mL/min Normal 60-69 yrs >49 mL/min Normal 70-79yrs >42 mL/min Normal 80 and above >35 mL/min Normal Female GFR Interpretation 20-39 yrs >60 mL/min Normal 40-49 yrs >58 mL/min Normal 50-59 yrs >51 mL/min Normal 60-69 yrs >45 mL/min Normal 70-79 yrs >39 mL/min Normal 80 and above >32 mL/min Normal ID Date Data Source [id number] 11/10/2019 07:38:00 PM EST [facility] Name Value Range Interpretation Code Description Data Michelle rce(s) Supporting Document(s) Prothrombin time (PT) 12.1 SECONDS 11.0 - 15.5 [facility] INR in Platelet poor plasma by Coagulation assay 0.89 0.93 - 1. 23 L [facility] \\BLDo\\INR INTERPRETATION\\BLDx\\ Therapeutic range for Coumadin and related oral anticoagulants. - International Normalized Ratio (INR): 2.0 - 3.0 for Venous Thrombosis, Pulmonary Embolus, Tissue heart valves, Acute SD, Atrial Fibrillation, Valvular heart disease and recurrent Systemic Embolism. -International Normalized Ratio (INR): 2.5 - 3.5 for Mechanical Prosthetic valve. ID Date Data Source [id number] 11/10/2019 07:33:00 PM EST [facility] Name Value Range Interpretation Code Description Data Michelle rce(s) Supporting Document(s) Lactate [Moles/volume] in Serum or Plasma 1.8 MMOL/L 0.2 - 2.2 [facility] ID Date Data Source [id number] 11/10/2019 07:32:00 PM EST [facility] Name Value Range Interpretation Code Description Data Michelle rce(s) Supporting Document(s) CBC W/AUTOMATED DIFF [facility] COMPLETE BLOOD COUNT Leukocytes [#/volume] in Blood by Automated count 6.2 10^3/uL 4.2 - 1 1.0 [facility] Erythrocytes [#/volume] in Blood by Automated count 4.13 10^6/uL 4. 20 - 5.40 L [facility] Hemoglobin [Mass/volume] in Blood 12.0 g/dL 12.0 - 16.0 [facility] Hematocrit [Volume Fraction] of Blood by Automated count 37.0 % 3 7.0 - 47.0 [facility] Erythrocyte mean corpuscular volume [Entitic volume] by Auto mated count 89.6 fL 81.0 - 101 [facility] Erythrocyte mean corpuscular hemoglobin [Entitic mass] by Automated count 29.1 pg 27.0 - 34.0 [facility] Erythrocyte mean corpuscular hemoglobin concentration [Mass/volume] by Automated count 32.4 g/dL 31.0 - 36.0 [facility] Erythrocyte distribution width [Ratio] by Automated count 13.3 % 11.5 - 14.5 [facility] Platelets [#/volume] in Blood by Automated count 251 10^3/uL 150 - 45 0 [facility] Platelet mean volume [Entitic volume] in Blood by Automated count 9.8 fL 7.4 - 10.4 [facility] Neutrophils/100 leukocytes in Blood by Automated count 55.4 % 37. 0 - 80.0 [facility] Lymphocytes/100 leukocytes in Blood by Manual count 35.3 % 25.0 - 40.0 [facility] Monocytes/100 leukocytes in Blood by Automated count 5.5 % 3.0 - 8.0 [facility] Eosinophils/100 leukocytes in Blood by Automated count 2.7 % 0.0 - 7.0 [facility] Basophils/100 leukocytes in Blood by Automated count 0.8 % 0.0 - 2.5 [facility] %IG 0.3 % 0.0 - 0.0 H [facility] %NRBC 0.0 % 0.0 - 0.0 [facility] al Neutrophils [#/volume] in Blood by Automated count 3.45 10^3/uL 2.00 - 6.90 [facility] Lymphocytes [#/volume] in Blood by Automated count 2.20 10^3/uL 0.60 - 3.40 [facility] Monocytes [#/volume] in Blood by Automated count 0.34 10^3/uL 0.00 - 0.90 [facility] Eosinophils [#/volume] in Blood by Automated count 0.17 10^3/uL 0.00 - 0.70 [facility] Basophils [#/volume] in Blood by Automated count 0.05 10^3/uL 0.00 - 0.20 [facility] #IG 0.02 10^3/uL 0.00 - 0.10 [facility] #NRBC 0.00 10^3/uL 0.00 - 0.00 [facility] MANUAL DIFF NOT INDICATED [facility] RBC MORPH NOT INDICATED [facility] ID Date Data Source [id number] 11/10/2019 07:15:00 PM EST [facility] Name Value Range Interpretation Code Description Data Michelle rce(s) Supporting Document(s) URINALYSIS [facility] N[facility]AL: Yellow [facility] CLARITY clear NORMAL: Clear [facility] Specific gravity of Urine by Test strip 1.010 1.001 - 1.030 [facility] pH 6.5 5 - 9 [facility] Glucose [Mass/volume] in Urine by Test strip NORM NORMAL: Negat [facility] Bilirubin.total [Presence] in Urine by Test strip NEG NORMAL: Negative [facility] Ketones [Presence] in Urine by Test strip NEG NORMAL: Negative [facility] Protein [Mass/volume] in Urine by Test strip NEG NORMAL: Negat [facility] Nitrite [Presence] in Urine by Test strip NEG NORMAL: Negative [facility] BLOOD NEG NORMAL: Negative [facility] Leukocyte esterase [Presence] in Urine by Test strip NEG KYLEIGH L: Negative [facility] Urobilinogen [Mass/volume] in Urine by Test strip NOR less jeyson n 1.0 mg/dL [facility] MICROSCOPIC Not Indicate [facility] Procedure Social History Code Duration Value Status Description Data Source(s ) Alcohol intake 06/07/2020 12:00:00 AM EDT Current drinker of al cohol (finding) completed Current drinker of alcohol (finding) [facility] Tobacco use and exposure 06/07/2020 12:00:00 AM EDT Never used co mpleted Never used [facility] Smoking 06/07/2020 12:00:00 AM EDT Former smoker completed Former smoker [facility] Vital Signs ID Date Data Source [id number] 06/08/2020 10:15:53 AM EDT [facility] Name Value Range Interpretation Code Description Data Source(s) WEIGHT RECORDED 174 lb 174 lb [facility] Body height Measured 61 in 61 in [facility] Patient Treatment Plan of Care Planned Activity Planned Date Details Description Data Source (s) Lurasidone Hydrochloride 40 MG Oral Tablet 06/08/2020 09:00:00 AM E DT [facility] 1 ML Ketorolac Tromethamine 30 MG/ML Cartridge 06/08/2020 02:00:00 AM [facility] Lurasidone Hydrochloride 20 MG Oral Tablet [Latuda] 05/20/20 12:00:00 AM [facility]
--- OUTSIDE RECORDS SUMMARY | 2020-12-19 07:09 | CCD ---
Author Author [facility] Organization [facility] Address Unknown Phone Unavailable Care Team Providers Care Supervisor Logging Name Role Phone SYMENOW, G CHRISTOPHER PA [...] Unavailable Sewell, W Gilbert RPA-C Unavailable Unavailable Juan Luis [...] Unavailable Juan Luis LAGUNA MD Unavailable Unavailable Juna Luis LAGUNA MD Unavailable Unavailable Juan Luis [...] ALICIA PA Unavailable Unavailable Daria, A Minerva CLIENT SERVICES SPECIALIST Unavailable Unavailable Daria, A Minerva CLIENT SERVICES SPECIALIST Unavailable Unavailable Daria, A Minerva CLIENT SERVICES SPECIALIST Unavailable Unavailable Daria, A Minerva CLIENT SERVICES SPECIALIST Unavailable Unavailable Daria, A Minerva CLIENT SERVICES SPECIALIST Unavailable Unavailable Daria, A Minerva CLIENT SERVICES SPECIALIST Unavailable Unavailable Daria, A Minerva CLIENT SERVICES SPECIALIST Unavailable Unavailable Daria, A Minerva CLIENT SERVICES SPECIALIST Unavailable Unavailable Daria, A Minerva CLIENT SERVICES SPECIALIST Unavailable Unavailable Daria, A Minerva CLIENT SERVICES SPECIALIST Unavailable Unavailable Daria, A Minerva CLIENT SERVICES SPECIALIST Unavailable Unavailable Daria, A Minerva CLIENT SERVICES SPECIALIST Unavailable Unavailable Daria, A Minerva CLIENT SERVICES SPECIALIST Unavailable Unavailable Daria, A Minerva CLIENT SERVICES SPECIALIST Unavailable Unavailable Daria, A Minerva CLIENT SERVICES SPECIALIST Unavailable Unavailable Daria, A Minerva CLIENT SERVICES SPECIALIST Unavailable Unavailable Daria, A Minerva CLIENT SERVICES SPECIALIST Unavailable Unavailable Daria, A Minerva CLIENT SERVICES SPECIALIST Unavailable Unavailable Daria, A Minerva CLIENT SERVICES SPECIALIST Unavailable Unavailable Daria, A Minerva CLIENT SERVICES SPECIALIST Unavailable Unavailable Daria, A Minerva CLIENT SERVICES SPECIALIST Unavailable Unavailable Daria, A Minerva CLIENT SERVICES SPECIALIST Unavailable Unavailable Daria, A Minerva CLIENT SERVICES SPECIALIST Unavailable Unavailable Daria, A Minerva CLIENT SERVICES SPECIALIST Unavailable Unavailable Daria, A Minerva CLIENT SERVICES SPECIALIST Unavailable Unavailable Daria, A Minerva CLIENT SERVICES SPECIALIST Unavailable Unavailable Daria, A Minerva CLIENT SERVICES SPECIALIST Unavailable Unavailable Daria, A Minerva CLIENT SERVICES SPECIALIST Unavailable Unavailable Daria, A Minerva CLIENT SERVICES SPECIALIST Unavailable Unavailable Daria, A Minerva CLIENT SERVICES SPECIALIST Unavailable Unavailable Daria, A Minerva CLIENT SERVICES SPECIALIST Unavailable Unavailable Daria, A Minerva CLIENT SERVICES SPECIALIST Unavailable Unavailable Daria, A Minerva CLIENT SERVICES SPECIALIST Unavailable Unavailable Daria, A Minerva CLIENT SERVICES SPECIALIST Unavailable Unavailable Daria, A Minerva CLIENT SERVICES SPECIALIST Unavailable Unavailable Daria, A Minerva CLIENT SERVICES SPECIALIST Unavailable Unavailable Daria, A Minerva CLIENT SERVICES SPECIALIST Unavailable Unavailable Daria, A Minerva CLIENT SERVICES SPECIALIST Unavailable Unavailable Daria, A Minerva CLIENT SERVICES SPECIALIST Unavailable Unavailable Daria, A Minerva CLIENT SERVICES SPECIALIST Unavailable Unavailable Daria, A Minerva CLIENT SERVICES SPECIALIST Unavailable Unavailable Daria, A Minerva CLIENT SERVICES SPECIALIST Unavailable Unavailable Daria, A Minerva CLIENT SERVICES SPECIALIST Unavailable Unavailable Daria, A Minerva CLIENT SERVICES SPECIALIST Unavailable Unavailable TIANA, GENE CHAD PA Unavailable [...] Unavailable Unavailable MIRTHA BROWN MD Unavailable Unavailable Lynd, Abbey RPA-C Unavailable Unavailable Lynd, Abbey RPA-C Unavailable Unavailable Lynd, Abbey RPA-C Unavailable Unavailable Lynd, Abbey RPA-C Unavailable Unavailable Lynd, Abbey RPA-C Unavailable Unavailable Lynd, Abbey RPA-C Unavailable Unavailable Lynd, Abbey RPA-C Unavailable Unavailable Lynd, Abbey RPA-C Unavailable Unavailable Lynd, Abbey RPA-C Unavailable Unavailable Lynd, Abbey RPA-C Unavailable Unavailable Lynd, Abbey RPA-C Unavailable Unavailable LyndAbbey castorena RPA-C Unavailable Unavailable LyndAbbey RPA-C Unavailable Unavailable Abbey Covington RPA-C Unavailable Unavailable Lynd, Abbey RPA-C Unavailable Unavailable INOCENCIO DIAZ Unavailable [...] Unavailable ELLEN, GEORGIA WELSH Unavailable Unavailable ELLEN, GEOGRIA WELSH Unavailable Unavailable ELLEN, GEORGIA WELSH Unavailable [...] Unavailable Unavailable CORBINE, S YOVANI Unavailable Unavailable Dallas Elie, L Mary DO Unavailable Unavailable Dallas Elie, L Mary DO Unavailable Unavailable Dallas Elie, L Mary DO Unavailable Unavailable Dallas Elie, L Mary DO Unavailable Unavailable Dallas Elie, L Mary DO Unavailable Unavailable Dallas Elie, L Mary DO Unavailable Unavailable Cizenski, [...] is protected by Article 27-F of the [place] Public Health law. If you continue you may have access to information: Regarding HIV / AIDS; Provided by facilities licensed or operated by the [place] Office of Mental Health; or Provided by the [place] Office for People With Developmental Disabilities. If such information is present, then the following [place] [employer] mandated warning applies: This information has been [...] law may result in a fine or senior care sentence or both. A general authorization for the release of medical or other information is NOT sufficient authorization for further disc losure. Allergies and Adverse Reactions Type Description Substance Reaction Status Data Source(s ) No Known Drug Allergies No Known Drug Allergies [facility] Drug Class NO KNOWN ALLERGIES NO KNOWN ALLERGIES [facility] Family History Family Member Name Family Member Gender Family Member Status Date o f Status Description Data Source(s) Unknown Condition [facility] Unknown Condition [facility] Unknown Unknown Problem [facility] ([facility] Unknown Unknown Problem [facility] ([facility]) Paternal aunt, PGM Unknown Unknown Problem [facility] ([facility] mother Encounters Encounter Providers Location Date Indications Data Source(s ) Outpatient Attender: YOVANI GAUTAM 12/08/2020 08:59:00 AM [facility] Outpatient Attender: GEORGIA HUGHES MD [email or web address] 11/29/2020 07:22:52 AM [facility] Outpatient Attender: YOVANI GAUTAM 11/10/2020 11:00:00 AM [facility] Outpatient Attender: INOCENCIO DIAZ 10/31/2020 11:00:00 AM [facility] Outpatient Attender: Minerva HALL 10/04/2020 10:07 :00 AM [facility] Outpatient Attender: Abbey CURRANCReferrer: Minerva HALL 09/19/2020 10:00:00 AM [facility] Emergency Attender: IMELDA Lynch: Silvano [facility] 09/15/2020 10:52:00 PM EST - 09/15/2020 11:55:00 PM [facility] Patient discharged. Outpatient Attender: Abbey Covington RPA-CReferrer: Jayden [facility]-CLN2 09/13/2020 10:16:00 AM EST - 09/13/2020 10:16:00 AM [facility] Emergency Attender: YULI BAIN PAReferrer : Minerva Huff [facility] 09/06/2020 10:12:00 PM EST - 09/07/2020 12:10:00 AM [facility] Patient discharged. Outpatient Attender: Minerva Huff FNPReferrer: Minerva Huff CLIENT SERVICES SPECIALIST 08/30/2020 01:00:00 PM [facility] Outpatient Attender: Minerva Huff [facility] 08/23/2020 02:12 :00 PM [facility] Outpatient Attender: Abbey Covington RPA-CReferrer: ALICIA CHONG 08/17/2020 09:44:00 AM EDT - 08/17/2020 09:44:00 AM [facility] Emergency Attender: SMITH LUCERO MDConsultant: ALICIA CHONG 08/12/2020 09:23:00 PM EDT - 08/12/2020 10:35:00 PM EDT [facility] Patient discharged. Emergency Attender: YULI Tracy PAAttender: JUSTIN PAYAN PAReferrer: ALICIA CHONG 08/02/2020 07:27:00 PM EDT - 08[facility]02[facility] Attender: LINDSEY Short er: [facility] MDAttender: Bia KirklandReferrer: [facility] [id number] 06/07/2020 12:0 0:00 AM EDT - 06/07/2020 10:57:00 PM EDT Chest pain, unspecified [facility] Chest pain, unspecified Patient discharged. Emergency Attender: YULI Harrellerrer : ALICIA CHONG EMERGENCY ROOM-ER 05/29/2020 11:05:00 PM EDT - 05/30/2020 02:45:00 AM [facility] Patient discharged. Outpatient Referrer: SHEREEN LAGUNA MD 12/30/2019 11:07:00 AM [facility] Emergency Attender: RYAN WEBSTERConsultant: ALICIA CHONG 11/12/2019 08:51:00 PM [facility] - 11/13/2019 12:27:00 AM [facility] Patient discharged. Emergency Attender: SMITH LUCERO MDConsultant: ALICIA CHONG 11/10/2019 06:10:00 PM [facility] - 11/10/2019 11:20:00 PM [facility] Patient discharged. Emergency Attender: CHAD CHONG EMERGENCY ROOM-ER 03/08/2019 11:22:00 PM EDT - 03/09/2019 01:58:00 AM [facility] Emergency Attender: Gilbert LARIOS EMERGENCY ROOM-ER 0 11/22/2018 07:22:00 PM [facility] - 11/22/2018 09:56:00 PM [facility] Emergency Attender: JUSTIN CHONG EMERGENCY ROOM-ER 07:58:00 PM [facility] - 10/06/2018 11:49:00 PM [facility] Emergency Attender: CHAD CHONG EMERGENCY ROOM-ER 10/01/2018 01:06:00 PM [facility] - 10/01/2018 03:35:00 PM [facility] Emergency Attender: CHAD CHONG EMERGENCY ROOM-ER 08/20/2018 02:36:00 PM ED - 08/20/2018 05:25:00 PM [facility] Medications Medication Brand Name Start Date Product [...] 0900, For 30 days
Administer with food.
[facility] Medication administered onsite 1 ML Ketorolac Tromethamine 30 MG/ML Car tridge ketorolac (TORADOL) 30 MG/ML injection 30 mg ketorolac (TORADOL) 30 MG/ML injection 30 mg 0 02:00:00 AM EDT 30 mg Intravenous active 30 m g, Intravenous, Every 6 hours, First dose (after last reorder) on Sat06/08/20 at 0200, For 3 doses [facility] Medication administered onsite Trazodone Hydrochloride 100 MG Oral Tablet trazodone ( DESYREL) tablet 100 mg trazodone (DESYREL) tablet 100 mg 06/07/2020 10:00:00 PM EDT 100 mg Oral active 100 mg, Oral, Nightl y, First dose on Sat06/07/20 at 2200, For 30 days [facility] Medication administered onsite Famotidine 20 MG Oral Tablet famotidine (PEPCID) table t 20 mg famotidine (PEPCID) tablet 20 mg 06/07/2020 09:00:00 PM EDT 20 mg Oral active 20 mg, Oral, 2 Times Daily, First dose on Sat06/07/20 at 2100, For 30 days [facility] Medication administered onsite 2 ML Metoclopramide 5 MG/ML Prefilled Sy ringe metoclopramide (REGLAN) injection 10 mg metoclopramide (REGLAN) injection 10 mg 06/07/2020 08:15:00 PM E DT 10 mg Intravenous completed 10 mg, I ntravenous, Once, Sat06/07/20 at 2014, For 1 dose
Reglan.
[facility] Medication administered onsite sodium chloride 0.9 % bolus 1,000 mL 5492-9611-19 06/07/2020 08:15: 00 PM EDT 1000 mL Intravenous completed 1,000 mL , Intravenous, Once, Sat06/07/20 at 2014, For 1 dose [facility] Medication administered onsite 1 ML Ketorolac Tromethamine 30 MG/ML Car tridge ketorolac (TORADOL) 30 MG/ML injection 15 mg ketorolac (TORADOL) 30 MG/ML injection 15 mg 0 08:15:00 PM EDT 15 mg Intravenous completed 15 mg, Intravenous, Once, Sat06/07/20 at 2014, For 1 dose [facility] Medication administered onsite iohexol (OMNIPAQUE) 350 MG/ML contrast injection 100 mL 2805 8 06/07/2020 07:00:00 PM EDT 100 mL Given by IV completed 100 mL, Given by IV, 1 TIME IMAGING, Sat06/07/20 at 1900, For 1 dose [facility] Medication administered onsite Aspirin 81 MG Chewable Tablet aspirin chewable tablet 162 mg aspirin chewable tablet 162 mg 06/07/2020 05:00:00 PM EDT 162 mg Oral comp leted 162 mg, Oral, Once, Sat06/07/20 at 170, For 1 dose
Chew tablet before swallowing.
[facility] Medication administered onsite sodium chloride 0.9 % bolus 1,000 mL 0300-0916-04 06/07/2020 05:00: 00 PM EDT 1000 mL Intravenous completed 1,000 mL , Intravenous, Once, Sat06/07/20 at 1700, For 1 dose
Bolus Wide Open.
[facility] Medication administered onsite 2 ML Metoclopramide 5 MG/ML Prefilled Sy ringe metoclopramide (REGLAN) injection 10 mg metoclopramide (REGLAN) injection 10 mg 06/07/2020 05:00:00 PM E DT 10 mg Intravenous completed 10 mg, I ntravenous, Once, Sat06/07/20 at 170, For 1 dose [facility] Medication administered onsite Acetaminophen 325 MG Oral Tablet acetaminophen (TYLENO L) tablet 975 mg acetaminophen (TYLENOL) tablet 975 mg 06/07/2020 05:00:00 PM EDT 97 5 mg Oral completed 975 mg, Oral, O nce, Sat06/07/20 at 170, For 1 dose
Maximum daily dose of acetaminophen is 3,000 mg from all sources in 24 hours.
[facility] Medication administered onsite 100 mg 06/02/2020 [...] active Take 20 mg by mouth Daily [facility] 30 mg 05/20/2020 12:00:00 AM EDT [...] EVERY DAY IN THE AFTERNOON SOLD: 05/03/2020 [facility] 40 mg 04/28/2020 12:00:00 AM EDT [...] type / Coverage type Policy ID Covered alliance party ID Covered alliance party's relationship to honeycutt Policy Honeycutt Plan Information [facility] COMMUNITY PLAN [facility] [id number] SP [id number] [facility] COMMUNITY PLAN [facility] [id number] SP [id number] [facility] [id number] S [id number] [employer] [facility] MEDICAID [id number] S [id number] UHC MEDICAID [id number] Karol [id number] [facility](MCAID) O [id number] S [id number] [employer] MEDICAID [id number] S [id number] [employer] [facility] MEDICAID [id number] S [id number] UHC COMMUNITY PLAN XIX [id number] 18 [id number] UHC I [id number] Self [id number] UHC I [id number] Self [id number] [employer] COMMUNITY PLAN [id number] [employer] MEDICAID [id number] S [id number] MEDICAID M [id number] Self [id number] [facility] Rudi/MCR Health Maintenance Organization (HMO) [id number] Self [id number] UNHC AMERICHOICE XIX -HMO [id number] 18 [id number] UNHC COMMUNITY PLAN XIX [id number] 18 [id number] UNHC COMMUNITY PLAN MCDHMO [id number] SP [id number] [facility] Maintenance Organization (HMO) [id number] Self [id number] [employer] Maintenance Organization (HMO) [id number] Self [id number] UHC COMMUNITY PLAN [id number] MEDICAID [id number] SP [id number] MEDICAID M [id number] S [id number] UNHC COMMUNITY PLAN MCDHMO [id number] SP [id number] UHC I [id number] Self [id number] UNHC COMMUNITY PLAN MCDHMO [id number] SP [id number] [employer] Maintenance Organization (HMO) [id number] Self [id number] UHC I [id number] Self [id number] UHC I [id number] Self [id number] [employer] Maintenance Organization (HMO) [id number] Self [id number] [employer] [facility] Maintenance Organization (HMO) Self BLUE CROSS APONTE PLAN [id number] SP [id number] MEDICAID [id number] SP [id number] Problems, Conditions, and Diagnoses Code Display Name Description Problem Type Effective Dates Data Source(s) F50.2 Bulimia nervosa Bulimia nervosa Diagnosis 11/29/2020 07:2 2:52 AM [facility] F41.9 Anxiety disorder, unspecified Anxiety disorder, unspec ified Diagnosis 11/29/2020 07:22:52 AM [facility] M51.9 Unspecified thoracic, 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 Unspecified thoracic, thoracolumbar and Diagnosis 11/29/2020 07:22:52 AM [facility] R91.1 Solitary pulmonary nodule Solitary pulmonary nodule Di agnosis 11/29/2020 07:22:52 AM [facility] G62.9 Polyneuropathy, unspecified Polyneuropathy, unspecifie d Diagnosis 11/29/2020 07:22:52 AM [facility] Z86.69 Personal history of other di seases of the nervous system and sense organs Personal history of other diseases of th Diagnosis 021 07:22:52 AM [facility] M54.40 Lumbago with sciatica, unspecified side Lumbago with sciatica, unspecified side Diagnosis 11/29/2020 07:22:52 AM [facility] F31.9 Bipolar disorder, unspecified Bipolar disorder, unspec ified Diagnosis 11/29/2020 07:22:52 AM [facility] F41.9 Anxiety disorder, unspecified ANXIETY DISORDER, UNSPEC IFIED Diagnosis 11/10/2020 11:00:00 AM [facility] F31.62 Bipolar disorder, current episode mixed, moderate BIPOLAR DISORDER, CURRENT EPISODE MIXED, MODERATE Diagnosis 11/10/2020 11:00:00 AM [facility] F50.2 Bulimia nervosa BULIMIA NERVOSA Diagnosis 10/31/2020 11:0 0:00 AM [facility] M54.6 Pain in thoracic spine PAIN IN THORACIC SPINE Diagnosi s 10/04/2020 10:07:00 AM [facility] M25.50 Pain in unspecified joint PAIN IN UNSPECIFIED JOINT Di agnosis 10/04/2020 10:07:00 AM [facility] R10.11 Right upper quadrant pain RIGHT UPPER QUADRANT PAIN Di agnosis 10/04/2020 10:07:00 AM [facility] K59.09 Other constipation OTHER CONSTIPATION Diagnosis 05/2020 10:07:00 AM [facility] 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 BENIGN LIPOMATOUS NEOPLASM OF SKIN, SUBCU OF RIGHT Diagnosis 05/2020 10:07:00 AM [facility] L72.3 Sebaceous cyst SEBACEOUS CYST Diagnosis 10/04/2020 10:07: 00 AM [facility] R91.1 Solitary pulmonary nodule SOLITARY PULMONARY NODULE Di agnosis 10/04/2020 10:07:00 AM [facility] G62.9 Polyneuropathy, unspecified POLYNEUROPATHY, UNSPECIFIE D Diagnosis 10/04/2020 10:07:00 AM [facility] N63.0 Unspecified lump in unspecified breast UNSPECIFIED LUMP IN UNSPECIFIED BREAST Diagnosis 10/04/2020 10:07:00 AM [facility] N64.4 Mastodynia MASTODYNIA Diagnosis 10/04/2020 10:07:00 AM [facility] R00.2 Palpitations PALPITATIONS Diagnosis 10/04/2020 10:07:00 A M [facility] M54.81 Occipital neuralgia OCCIPITAL NEURALGIA Diagnosis 1 12/05/2019 10:07:00 AM [facility] G44.209 Tension-type headache, unspecified, not intractable TENSION-TYPE HEADACHE, UNSPECIFIED, NOT INTRACTABL Diagnosis 10/04/2020 10:07:00 AM [facility] G89.29 Other chronic pain OTHER CHRONIC PAIN Diagnosis 05/2020 10:07:00 AM [facility] M54.41 Lumbago with sciatica, right side LUMBAGO WITH S CIATICA, RIGHT SIDE Diagnosis 10/04/2020 10:07:00 AM [facility] M54.42 Lumbago with sciatica, left side LUMBAGO WITH SC IATICA, LEFT SIDE Diagnosis 10/04/2020 10:07:00 AM [facility] M54.16 Radiculopathy, lumbar region RADICULOPATHY, LUMBAR REG ION Diagnosis 10/04/2020 10:07:00 AM [facility] Z87.891 Personal history of nicotine dependence PERSONAL HISTORY OF NICOTINE DEPENDENCE Diagnosis 09/15/2020 10:52:00 PM [facility] Z79.899 Other assisted (current) drug therapy 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 Diagnosis 09/15/2020 10:52:00 PM [facility] R10.84 Generalized abdominal pain GENERALIZED ABDOMINAL PAIN Diagnosis 09/15/2020 10:52:00 PM [facility] M54.5 Low back pain LOW BACK PAIN Diagnosis 09/13/2020 10:16:00 AM [facility] R10.13 Epigastric pain EPIGASTRIC PAIN Diagnosis 09/13/2020 10:1 6:00 AM [facility] Z12.31 Encounter for screening mammogram for ma lignant neoplasm of breast ENCNTR SCREEN MAMMOGRAM FOR MALIGNANT NE Diagnosis 08/30/2020 01:00:00 PM [facility] Z13.29 Encounter for screening for other suspec emma endocrine disorder ENCOUNTER FOR SCREENING FOR OTH SUSPECTED ENDOCRIN Diagnosis 08/23/2020 02:12:00 PM [facility] Z13.228 Encounter for screening for other metabo lic disorders ENCOUNTER FOR SCREENING FOR OTHER METABOLIC DISORD Diagnosis 08/23/2020 02:12:00 PM [facility] Z13.0 Encounter for screening for diseases of the blood and blood-forming organs and certain disorders involving the immune mechanism ENCNTR SCREEN FOR DIS OF THE BLD/BLD-FORM ORG/IMMU Diagnosis 08/23/2020 02:12:00 PM [facility] Z13.220 Encounter for screening for lipoid disor ders ENCOUNTER FOR SCREENING FOR LIPOID DISORDERS Diagnosis 08/23/2020 02:12:00 PM [facility] Z76.89 Persons encountering health services in other specified circumstances PERSONS ENCOUNTERING HEALTH SERVICES IN OTH CIRCUM Diagnosis 02:12:00 PM [facility] M25.561 Pain in right knee PAIN IN RIGHT KNEE Diagnosis 09:44:00 AM [facility] Y9289 Other specified places as the place of o ccurrence of the external cause Other specified places as the place of occurrence of the external cause Diagnosis 08/12/2020 09:23:00 PM [facility] [id number] Exposure to other specified factors, ini tial encounter Exposure to other specified factors, initial encounter Diagnosis 08/12/2020 09:23:00 PM [facility] [id number] Strain of muscle, fascia and tendon of l ower back, initial encounter Strain of muscle, fascia and tendon of lower back, initial encounter Diagnosis 08/12/2020 09:23:00 PM [facility] [id number] Strain of muscle, fascia and tendon of l eft hip, initial encounter Strain of muscle, fascia and tendon of left hip, initial encounter Diagnosis 08/12/2020 09:23:00 PM [facility] D05963 Pain in left hip Pain in left hip Diagnosis 08/12/2020 09 :23:00 PM [facility] Y92.[address] or not applicable UNSPECIFIED PLACE OR NOT APPLICABLE Diagnosis 08/02/2020 07:27:00 PM [facility] X58.XXXA Exposure to other specified factors, ini tial encounter EXPOSURE TO OTHER SPECIFIED FACTORS, INITIAL ENCOU Diagnosis 08/02/2020 07:27:00 P M [facility] F17.210 Nicotine dependence, cigarettes, uncompl icated NICOTINE DEPENDENCE, CIGARETTES, UNCOMPLICATED Diagnosis 08/02/2020 07:27:00 PM [facility] L04.0 Acute lymphadenitis of face, head and ne ck ACUTE LYMPHADENITIS OF FACE, HEAD AND NECK Diagnosis 08/02/2020 07:27:00 PM [facility] J20.9 Acute bronchitis, unspecified ACUTE BRONCHITIS, UNSPEC IFIED Diagnosis 08/02/2020 07:27:00 PM [facility] S29.012A Strain of muscle and tendon of back wall of thorax, initial encounter STRAIN OF MUSCLE AND TENDON OF BACK WALL OF THORAX Diagnosis 03/2020 07:27:00 PM [facility] M54.2 Cervicalgia CERVICALGIA Diagnosis 08/02/2020 07:27:00 PM [facility] R07.9 Chest pain, unspecified Chest pain, unspecified Diagno sis 06/07/2020 08:14:36 PM [facility] Chest pains, back and shoulder pain Chest pains, back and shoulder pain Diagnosis 06/07/2020 03:46:00 PM [facility] R51 Headache HEADACHE Diagnosis 05/29/2020 11:05:00 PM [facility] R19.7 Diarrhea, unspecified DIARRHEA, UNSPECIFIED Diagnosis 05/29/2020 11:05:00 PM [facility] F44489 Personal history of nicotine dependence Personal history of nicotine dependence Diagnosis 11/12/2019 08:51:00 PM [facility] A0811 Acute gastroenteropathy due to [place] a gent Acute gastroenteropathy due to [place] agent Diagnosis 11/12/2019 08:51:00 PM [facility] K219 Gastro-esophageal reflux disease without esophagitis Gastro-esophageal reflux disease without esophagitis Diagnosis 11/12/2019 08:51:00 PM [facility] R109 Unspecified abdominal pain Unspecified abdominal pain Diagnosis 11/12/2019 08:51:00 PM [facility] R935 Abnormal findings on diagnos tic imaging of other abdominal regions, including retroperitoneum Abnormal findings on diagnostic imaging of other abdominal regions, including retroperitoneum Diagnosis 0 06:10:00 PM [facility] K529 Noninfective gastroenteritis and colitis , unspecified Noninfective gastroenteritis and colitis, unspecified Diagnosis 11/10/2019 06:10:00 PM [facility] [id number] Generalized abdominal pain Generalized abdominal pain Diagnosis 11/10/2019 06:10:00 PM [facility] Surgeries/Procedures Procedure Description Date Indications Data Source(s) CT ANGIOGRAPHY CHEST W/CONTRAST/NONCONTR[place] [address] CODE 06/07/2020 7:16 PM EDT 06/07/2020 07:16:50 PM EDT [facility] CT HEAD/BRAIN W/O CONTRAST MATERIAL CT HEAD WITHOUT CONTRAST 70 450 STAT 06/07/2020 7:05 PM EDT 06/07/2020 07:05:39 PM EDT [facility] COVID-19 PCR COVID-19 PCR Routine 06/07/2020 6:08 PM EDT [facility]STAT TROPONIN Routine 06/07/2020 6:01 PM EDT 06/07[facility]2020 [facility]IAN INTERPRETATION EKG ED PHYSICIAN INTERPRETATION Routine 06/07/2020 5:59 PM EDT 06/07[facility]59[facility] POCT ISTAT BHCG Routine 06/07/2020 5:07 PM EDT 06/07/2020 [facility]:07:[facility] CHEST FRONTAL AND LATERAL [id number] XR CHEST FRONTAL AND LATERAL [id number] STAT 06/07/2020 5:03 PM EDT 06/07/2020 [facility]:03:[facility]ANTITATIVE POCT ISTAT TROPONIN Routine 06/07/2020 4:04 PM EDT 06/07/2020 04:04:00 PM EDT [facility] PROBNP PROBNP Routine 06/07/2020 3:58 PM EDT 06/07/20 20 03:58:00 PM EDT [facility] BLOOD COUNT COMPLETE AUTO&AUTO DIFRNTL WBC COUNT CBC AND DIFFER ENTIAL Routine 06/07/2020 3:58 PM EDT 06/07/2020 03:58:00 PM EDT [facility] TROPONIN QUANTITATIVE TROPONIN T Routine 06/07/2020 3:58 PM EDT 06/07/2020 03:58:00 PM EDT [facility] PHOSPHORUS INORGANIC PHOSPHORUS LEVEL Routine 06/07/2020 3:58 PM E DT 06/07/2020 03:58:00 PM EDT [facility] MAGNESIUM MAGNESIUM LEVEL Routine 06/07/2020 3:58 PM EDT 06/07/2020 03:58:00 PM EDT [facility] LIPASE LIPASE LEVEL Routine 06/07/2020 3:58 PM EDT 06/07/2020 03:58:00 PM EDT [facility] HEMOGLOBIN GLYCOSYLATED A1C HEMOGLOBIN A1C Routine 06/07/2020 3:58 PM EDT 06/07/2020 03:58:00 PM EDT [facility] HEPATIC FUNCTION PANEL HEPATIC FUNCTION PANEL A Routine 06/07/2020 3:58 PM EDT 06/07/2020 03:58:00 PM EDT [facility] LIPID PANEL LIPID PANEL Routine 06/07/2020 3:58 PM EDT 06/07/2020 03:58:00 PM EDT [facility] BASIC METABOLIC PANEL CALCIUM TOTAL BASIC METABOLIC PANEL Routi ne 06/07/2020 3:58 PM EDT 06/07/2020 03:58:00 PM EDT [facility] EKG 12-LEAD - CMAXX REPORT EKG 12-LEAD - CMAXX REPORT 06/07/2020 2:42 PM EDT 06/07/2020 02:42:37 PM EDT [facility] EKG 12-LEAD - CMAXX REPORT EKG 12-LEAD - CMAXX REPORT 06/07/2020 2:42 PM EDT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 [Mass/volume] in Urine by Test strip NOR less jeyson n 1.0 mg/dL [facility] MICROSCOPIC Not Indicate [facility] ospital ID Date Data Source [id number] 08/12/2020 09:53:00 PM EDT [facility] Name Value Range Interpretation Code Description Data Michelle rce(s) Supporting Document(s) CBC W/AUTOMATED DIFF [facility] COMPLETE BLOOD COUNT Leukocytes [#/volume] in Blood by Automated count 7.2 10^3/uL 4.2 - 1 1.0 [facility] Erythrocytes [#/volume] in Blood by Automated count 4.36 10^6/uL 4. 20 - 5.40 [facility] Hemoglobin [Mass/volume] in Blood 12.7 g/dL 12.0 - 16.0 [facility] Hematocrit [Volume Fraction] of Blood by Automated count 39.1 % 3 7.0 - 47.0 [facility] Erythrocyte mean corpuscular volume [Entitic volume] by Auto mated count 89.7 fL 81.0 - 101 [facility] Erythrocyte mean corpuscular hemoglobin [Entitic mass] by Automated count 29.1 pg 27.0 - 34.0 [facility] Erythrocyte mean corpuscular hemoglobin concentration [Mass/volume] by Automated count 32.5 g/dL 31.0 - 36.0 [facility] Erythrocyte distribution width [Ratio] by Automated count 13.0 % 11.5 - 14.5 [facility] Platelets [#/volume] in Blood by Automated count 232 10^3/uL 150 - 45 0 [facility] Platelet mean volume [Entitic volume] in Blood by Automated count 9.7 fL 7.4 - 10.4 [facility] Neutrophils/100 leukocytes in Blood by Automated count 59.2 % 37. 0 - 80.0 [facility] Lymphocytes/100 leukocytes in Blood by Manual count 31.3 % 25.0 - 40.0 [facility] Monocytes/100 leukocytes in Blood by Automated count 6.3 % 3.0 - 8.0 [facility] Eosinophils/100 leukocytes in Blood by Automated count 2.2 % 0.0 - 7.0 [facility] Basophils/100 leukocytes in Blood by Automated count 0.7 % 0.0 - 2.5 [facility] %IG 0.3 % 0.0 - 0.0 H [facility] al %NRBC 0.0 % 0.0 - 0.0 [facility] al Neutrophils [#/volume] in Blood by Automated count 4.23 10^3/uL 2.00 - 6.90 [facility] Lymphocytes [#/volume] in Blood by Automated count 2.24 10^3/uL 0.60 - 3.40 [facility] Monocytes [#/volume] in Blood by Automated count 0.45 10^3/uL 0.00 - 0.90 [facility] Eosinophils [#/volume] in Blood by Automated count 0.16 10^3/uL 0.00 - 0.70 [facility] Basophils [#/volume] in Blood by Automated count 0.05 10^3/uL 0.00 - 0.20 [facility] #IG 0.02 10^3/uL 0.00 - 0.10 [facility] ospital #NRBC 0.00 10^3/uL 0.00 - 0.00 [facility] MANUAL DIFF NOT INDICATED [facility] RBC MORPH NOT INDICATED [facility] ID Date Data Source [id number] 08/02/2020 11:12:00 PM EDT [facility] Patient: DAKOTA RAYMUNDO Observa tion Report - Physicians/Mid Levels Hospital.VisitID: [id number] [place] [address] [phone], [facility] Date/Time: 08/02/2020 18:43 Weight:76.2 kg (S). Height/Length:61 [...] rce(s) Supporting Document(s) ID Date Data Source [id number] 08/02/2020 07:47:00 PM EDT [facility] [...] rce(s) Supporting Document(s) ID Date Data Source [id number] 06/08/2020 10:15:53 AM EDT [facility] Name Value Range Interpretation Code Description Data Michelle rce(s) Supporting Document(s) ED Provider Note [facility] VFPMPc2vHwCTUvAn55/BXDivUMXxc5ArLXnyRQv6EWsfNOOuN8YzNLX0fL0xKSW3PKfMQrSmJtDfTAGr lbm [file] mUlserV2RZP3GsCWz0/wood piler+2SMdVUvJW8Ag0eamrxm [file] uTidVLJTBdy3ODU7PYmoQZFKBc9F ID Date Data Source [id number] 06/08/2020 12:42:04 AM EDT [facility] Name Value Range Interpretation Code Description Data Michelle rce(s) Supporting Document(s) ED Provider Note [facility] AMYBGw9zNwYSRxAu67/EABagGIPvg5CaMVklQZq8FFdmEVZmS0ErKNW2wY8iTYA1UJnNOsIkTfAtXIIf lbm [file] L3I1XtVqKlWmijRmI8XGApTX5lOTOICd3+ODuinMIkhEpqHLXSNsU3MRU1TOywLDDLYu9Q ID Date Data Source [id number] 06/07/2020 10:35:15 PM EDT [facility] Name Value Range Interpretation Code Description Data Michelle rce(s) Supporting Document(s) Discharge Summary [facility] GWVPWq7xYcGYLdUc57/KCUzcYGCat0EqZIkmTWk5EPfnXEMgR7IxFRV5hV6gSQN4VQtGYjGkAyKpOFUw lbm [file] L4saTxWXfuFXh3ZW5TNFYDB5NOQq== ID Date Data Source [id number] 06/07/2020 09:36:08 PM EDT [facility] Name Value Range Interpretation Code Description Data Michelle e(s) Supporting Document(s) History and Physical [facility] OIYRQv6aGjSNOiVg09/UJKdxGGQld4TvWDosZBw6ZGlaKZHyY5MwSEJ3sL4qEOK7ICzUFlHmJxHyMEBv lbm DiFcxTOtEeFTLmSuzNPuOzNUyeQbnoyBDtUE6QdTZ9IXWyN84aNSPlWRUaF3DiPBUvSCY+Mj2BLRQxkR UkFT0ZNhrM1G6Yi1mATc5iip9YQ3AKNwhkPquy6UxaY/MvWcGNj12o8uolpkLnRwuALjV++iBPhSz5iP WecRvWbpVUmWO7G4+fcwBKFf9+VYPAsyxLZT/1n0Fk q+up+eep4TarN8dz1p+bHyDQ2wywwRyg/zWLjv0j0wIqgPRMbr6hwrZJVoK1iknHTf39JF9/n1+NZ8v5 2ZS7Di8q89phBirj4JowD+juosIK58IhX901qv8/GZ2e2Y90a9dN7+qa+Ka6cdnN9Uw5Bz1mFnW8c9YU 4PadrfPpwPh4xpMoND4cd+yNsgtgdGsnX4GRO9I8c3 jUSBZ/yvuxALtn2W4FYyroiLlaIAGtwY82ovBiF/7VwNDMFs2VlxBkIUn1A78gqv3VZYMgspmUmE5ofH pm9yVAXd1EouGXZnWp65viRHtuJaA6Riu+f1D1uoR46FDnog/dutkxWgu2OtfMUbFPyMfP59bwaoUtw8 hoV5uNeFxF/0BbBzoSR+/9LokXWOJzNUuu5QOkk+Fw iUzWasITS5qK1gqRPgrvtGoKMb6C+JquiiCz5hhlOKYRp0EwE6pFXf6WXyvwdBqnJ5a1AyLn24z4qnV4 /JFeiU3zs7Dispuatw6ErtKaSFYMhRgUTuS5TtzJVFrqs3TtPd72kimwjzkSyyGTAlePs21CGMZg/1l2 ftv8I45ulxyXUhwUPBjfXVRWc4IjSQxM5uFtuX77Y0 atfWgJuaMoqGzzQ7CkG4cF21dvoQOlbYlaQVFmnPN+1Msq0wp6jbJgDd/EimPiZ4IizJPQOvOKsQ/Marjan [file] BzDkHhWNCxY4XqKkMtKHGhUUJ5XGMkKHW+IF0gDQ o+Aa6Eq7OmjgP9agZjQOm8GmX1Ni7IIYPHT1WTCj== ID Date Data Source [id number] 06/07/2020 07:46:07 PM EDT [facility] CT HEAD WITHOUT CONTRAST [id number] RESU LTInterpreted by:Bassam Mccoy MDCLINICAL INDICATION: 30-year-old [...] rce(s) Supporting Document(s) ID Date Data Source [id number] 06/07/2020 07:29:01 PM EDT [facility] CT ANGIOGRAPHY THORAX [id number] RESULTI nterpreted by:Rashaun Ivy [facility]: Evaluate for PE EXAMINATION: CT ANGIOGRAPHY THORAX [id number], 06/07/2020 6:57 PM, [id number]: Chest radiograph dated 06/07/2020.TECHNIQUE: Postcontrast CT angiogram [...] rce(s) Supporting Document(s) ID Date Data Source [id number] 06/07/2020 06:39:48 PM [facility] Name Value Range Interpretation Code Description Data Michelle rce(s) Supporting Document(s) 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 hacker/IB99N2H+X0BG0GywU0cd7G6NzFdgIMnop62NS/GuBXA/nglS7Y8U qDphZKxzmRLj0rmyxzTjA3gqYdDrFyNU97sU5J3vuC fQSrwW7r9d5AmjKMvoa49Onjf4ZiORjjxh+147Oo8rhWNO28nW7E+EQYxowqZwX5ouq9Q+SvxkL/XTdf Z1uW626220Gg4QheAKW5Zc4N/i6SPmhonkcVhkPwngRaxRstH/bmvNjZ/RqdzMsdQUjM5nZynS/YW9cO vUN/7K17O/bmPSe/eq+pR2Yj2R/1oGLtgnNfp2/05F hfU0879o3MUmJQ4WNam4Fj6T/8YK0r9Cip/Kp+E/h9QD+zq5Jw8Zc8V5cTZ7PWThpLsyTlkKn8BxyO4y zmdtTHbr6Oo22DqKo/Sp9g/DWChD8Dt4Hh4N+rr/UEvN84JR/Fq13YvAf/qt/c9Veu9/3rmthfo4Lx+H 0bYmxkyO1eVPS+cc3W9Ch2Ms6++oNK9oI9rCtITSk/ On3Ek1/EfMTl0P3da/XlG0Om0Vx8AQ2HW1J/RP0L+cZab6VojkdZltLj18vU1V7E27KtO/B8B+J5IJ4H 4casnyrtNkfStZYdP0FW1y12lnQWlrvf/j5rRezVCxs/eq+hF+jl+cg31J21RA/GRre1Hb3QxyKh1D/x 2R3P1/F8Hc/XYa/DXkc8O+LZMV4F+d4zNexo+aQH+m /g+Qaeb+P7Sm6k7Oevs8p3RH64SxON7mc1mmYiD7R1NC/X8xL4yi549G1jzitJ0MzE1hcZa1jpz0vEiW T7Qjx6Hc2Z6JfhJrZ+0DE/6JgfdMwPOuYHHfODjvlBx/nkE22TO+xd6L/JrzKWFsarhfFqYbxKflVlB+ pX6402umoCg+D0WwrgnGdTfaIxylod+7RdB0FUDi/a T+o/4reHZXetiSPfFZiC4E+/9mduGJ5pZ105QnG49Pa0Nm9A/af/vtfQB/QB/YR+Qr9w/2adgnm4+47P 6gs0tgr+f+O5/Kofi+j8Cd5Eb1Oo2Kx3VwsS/+VU89/iF8hjm8xZxUolNhB3pkM7joN1C+jfavd+/Ifd7 IeR+T3Nx00DHxR6rS+gNeoN+QH+/j3Cv4Olt281gxk T0E/p57QK/Crn9N+N164O19zF2D67pd3a+kmf3Rk7i33cf2C4345AV1k/c9Trf/uozyF1VTvkv+rqz5f Jy263j7ko3lUZ5R47plj5Bfh9GJ80tEieB19R6pPoVFVbN5qn5f4YUDPsj9VPP0/TBs8/1r2zuK/3Ym7 m9t2p3rdMx5PmrN8O++TrJDaYK/sgH0P4Pm/Otezj8 vi0w5Ug0z6Sas83Rw/3nF0f7CzdOAaK+SlCQJzb5BJrpb7n+wln99nxz57CabRbnWReK1pZ41Qc7W3c5 33G/n3XG9rAAA+kh5Nvmdx749P/S8R7QliifyW20YemeA3jEA+W1Qn/vQ1N3ZCL+MDA/AO4tN5Zfw8ya A/qAfkI/ob/jSrQJ95Uwv/zTVW8qwN8L6I6A+Ramana/i wMsvqkjiH5ospWObT1T/JR4AR53oR80lS+KpC/IuQdQdrwOJ5prX5K6U3J+Ramana/blNjhoziqE0p5pbT+ vbA/mrmAO/d9SD/klfwHeCW05ehK6Z0amZ/NRkwhUE9sM+MDA/NQjld4m742UnIdMQ/M4ee8AndnT9Cj 6Noueb943q/l4fe+u5d77phRp+IxbsxfqrwPqrwPqr wPqrWDdfF+poZ7AeorbifSCwA+D1L4065oyn+ECTu45q3lM+fu/Hhbv4B3+KxstyyLoLwC9X8ngV/FUg fxV7Q3/51Xzu9+2KakOIXr6Qk4Ew3ZQ6R6/oM5H8lI/4vaMeh/7yq/zvrwn43Ghd5Gz5Vw4H/y6gUvy1 YyJ/FlTgbtm0U28pE0zPEkfvRiwth9Ee/+BE/moifz XFcT+B+ay1hqGyhzteqMhSO07lQmY+dj3sBp41vo+xyH7B0H0t6f6WQznL+vv+oQiro9Qlq1TlebdO+m gu2QN2x+gI0VJ7N85claXd72X+EPd/+wh+/yr3Oc/jCv79o/LflJgwEBZVNNsBOsTGRet1g3xjh0Xh/q 5rKeNY7hhNU/JvVb+C35+N/BsEK5Y4V1TgSEQmQiHU puZld3JnyVPYIpdUtTy69DKMRGezAkE2UOcKdZirB6R3vqBcg/yz654+zUZkjqBQi8jH737ebm+HAhEn 4kSCtQXbmbyDyXtLH+VLt81hmWDVqWRiNEJSAHGruzTBjiHOtemYx6H+QUmv4ENohbsFHiyl9z7BUsjM 9iZEY3Zh/OkybAeFbv1kbKRCELVnBTHRWDmUcM+Ty vqX1xkv80uz46M20v7WphGQEnTsJt7bjFj1lm+mcZNs0jFI5nmf60SSoJkAzSIcIGlz24VQApQPkXZrn b9jufCZ+UnYgArXvuVIn3SSCyRvnqrEQ96oNLj1bVl2jFjvlYAPeafqwhhrTTuDlyRc8wFNJqlqML73k v1xmRGJsoSzI5GLKEEGBVOUXwNNSWzNmEM+jFhPc+9 6/OyZflB6JBrRZGyLaTF4TZEyqOAv2HX+AE3fD1lDSznV97vG9/lGCoC7QGUWkBxCK97E0fjL/uCJZJ9 RVXIwTPVgA7GYVWEBKDzXwIZOOWHZDTvjuLzfDlqlj+W39Yptg6mIXYUeQu5VESCQ4wWlX3anZWU5OEL YTjQW5iL6ympwtVLPqrlBHyciJOsUxWEXGAfQ3XX1q o9OOHixUwC/VUy5djQJQTDH9/nd4Q/lWwmvpnVy4gLGQs7URIY+/vQ8tFbcs90P5scX+byZyvYTw49c3 aimKrPx1aZHQhKfgIyFm+VoTDd5QjnauZ07qfKd5NGK4080FuxPsaAPsfypVAjxymm3POSypC4ktjhpM iZRc6yagUYxmTIWDA+pnJ6lbpq4IOtiKUJDJ/kRZ64 jsooCUj4J5pqlQfZtLYpoMFAbC2ZYNT74XPjAUHZQ1mHCyZNbCOcBStoJ/VsVIQcuhZmg2whwQv4yQMY /jwUiAgRIaJElIgRoQ+j07TixTRA7sMuRN0tH/rWEHvFUJUkte5iG87tfiIstC+O5Wb9hLOzCbWFgTlW 8IMVet/7L9OWColUXYvfdPxpZnk3NUJjKvCEM/heSJ 04NNyfIgq4uf+MJYSc15nVxEK+DkGICBElonibFU+ZRz2AFxBZy5nLrbxUN8NikidsdzTXTV0NdYTfJE qemC/+hVuugbsGsmpN8YkxpAAFqYD/IkkcN3ucIiotWHRPD5LMiXQp3ZOoSmLvlVkucDVnaMSFIC/hugo TlRUFKPkksICMsP5HZgiWedTGKV+oiwBfocf4ojI1+ vTVFCx0r5LpKJq/wis1h3EPj9+CWT8KUDwVqCDXgXgVJQsy23Or7E5VX6cZe6Ys45NjPhEJfaFEILe8F ZyrWC363WtSoWJOFZCr1RN6Cvfg+k8IhkH74Bp7K7nlI2474nNH+vp38RKmCcZVGm4NpaTv1kfmtU2hu V0YIOkrP9lhO7lvC6tQfzLbhLb2k+4AawH3tD6Ucmq /ZyROzZ+6p9D68d0D2287eznzKN7fSpcnNzGg5+dsgwG271djz5KD86Kyac41nQsf+Q5gxoFdbjmASOH HAbKEeDWmlF0cVA3xksGI/jNI0z66rQ9af3swNS5brFIFZNLQxl2a8Y/iivayVVHZt7Mgw418KAHbxYw 3e95E6m1hKVp7VgFaODBFTDVgGYGJukNnltMC/sM2J DOMoWr8zBxyhNY/5MnK9wxX/dOrwD4r6TJGSOJPfIeBZDR4RjSQIN4hMP6yAKfIpeVGOgAu7WxKCU8KK JsK+2YeVhynz0lRtH5tsgmpPJ4OoTBtUGJW+9RxVFod124MxE5pXbM/clU/WkgMakEXAB39+PWgE0lEu CQIFvhpFXd26RdLRpWEIAKjf1GxU5WACA1F+8PLEEo [file] Z89yM6KeAWWWhPb/Aczx1cfonw9RPD/67a2Uyd/banking manager 8VjXneuaHn+R/0eekkcYNAW2eP5ckdZ3/tPq6ZDEAHyksY67I1mVrviH17QOqtgS77mpozumB+1/b00P yUknVkyXLHWlIwcKNYSc1lDvihcZeEIYtGptFsgd+tqR7XNZ3Cj+s5b5PGvZfkC3xXX5vu4Jl/lVpqbH /O5T0+G3eF0ylv+zd/nursing home/1qHM8De8DYe6iXO7JvpV [file] /mv2d8Bb69+yMgul8h8eO+o87wf76b3530du+KW32q Ll9/1kqtV7+kklfL+gjCk23o2mmZgpc3qOECtb/tW1N8+55MCg17c+DZOkEe23kh7PgImr8MmlVfp3b4 WA8KksA4ExDY3WOBo0FH2i+88eM8u/kgqiX+K0jiaHcK3i+TWeKxp+jecqpLfGcxWdW/5vwkH4Bt+7uN 71jMnlX+3jCf08+uVf1X/1OudZ/lWdf/lX+1igF+gV syQ55Sv0+As07IL94Fo7OooMHkGMvgUeEqZG51km7R/VfS7/ah+ubTz5GusrbZ+hvcu/3uyZnNOs5Pj7 6F9D/xr6d/lX+2q7njbgrERThp/1HB+9XxeOoW/Qr/ba/gDxjMnlX+6stV6wM+gxnpd/VeN8+Vc1/pd/ 2WjiloEwkhHPYe2G/IJqYLfyreoJwrks0Cqyg/8s/f fDca4H3YMwV6ywo9MI44oNp9nAB/54W3CSnnD6+Fsyy76R+md1x5EUgci/1TK98/ZpTe47Mx1WtDDIr6 n7sepW0uqhqj9EnTB6K4XEpgjMsqJo/6p27y3/xuoj4Z6CdzilJ4F8v/plIfxDb0Peix//enRAJq1qPh n0Ma6S61L416fy+7wMAFzq1xxs69qI29ie3r1ju9fk zv5DnSo6R9EE8V/MTsjz7HKe/au0Z/pX+X0w/bj9atvI8S/hP0GtOpXv+lfZ7+lf9To+86G7ThN+ln9V 42rg+TvO+8LafFN+7sc3t5ob+vh0oyaUg/pX+/yq4vH0r33ViAFu9Nl6Sq9Lx9F26Z9zOhzeaK1x3R/t Y+gxf9O/hhHaC4x6/qRex5/U9K/quEHfoBfoBXqFXq W12V17v37k32V41F1/kIuB5Sv6SzRE+qa60ThIX/p59Iu/qv+484thZkit8FWGy/irfazQK/FC2xhN32 P82Z35Wn7Pd/Alvarez/+g2pq5Cn/cjgHlo38a6T4JdlM/Zg15Y8sneA/9Ky7+qY+gdeoe+Q9+hD+uWwjSR3A 3WdmOgNbXopv3O/avo3/We7xV0Or9Sy/5V9K+ifxXt Tf9KU5/qluHGDtYq6A/oJ/UAt6n44vorSXY6Cwhlh/w1we/YCaV8Xz24vPmXDeM9Bbzfg2a0sZaJcKr0 r6F/Df1r6F/CfKpRC0o8noyrz4u8yCsHvKdPE6f3hjifq4d8nIv8o1Ex+Ri0hWRT/gGtj5GEsM/Qz6Pv 36Tm3Ss0PG1t8i0px0k1G6cv7i6r/jsCji9c2hwcft 7t6N+O/y4p485+3qxetm5UcOyB/R2D97Q7A/F5DZ6U0xqIl8P1kEjeE5gnvuZ46l7K609IajHxCzD/A/ L87XjFLG0Q53g2L+i7s57d9gl9rx2/MJ4H+amavkz2f+z5b9A1j+FzdBz+Wcu/yuP++F2a/wXr7tDtqQ y+Sxyp97Fzlo0gVWoUi64538sK2q/TjgO62VycB9Gq xrkBgTnmOPuS1gK78W66wXq40FA/zns7/uTaoVI+pKZ/fqVx124z/Microarray Analyst/+q2uV1n/oi0hzYsQ73e2S86 3zj37C6gQooJSv/QG/UYsIVzSM15LyaIjV/oA/oB/YB+Qn/Ns1Fbus9s6IbiK/Y4uy66mYbLs3rcmcJR f7c3o/xUCbF6ZM1Ghtp20SW28PIKqg4+rs5/tzc5vb G8WD2Gs3e2Pzwa3/VkE9p8dARxlEphdmduX/4vvVbjGMsml3Mcbn+1zWN1e4w/1Lwc3Av36useqLIfQP Ew6/rht5Jiz5+FY84tkk/bGAtja19Ykh7edZfcTI1onpSwVw/W30chqd7dHqO9A1acn3Zlfcp54e31F8 3WwWaMfL9lqP/lEiYZWLc7zHaQVXapBHh12rZ4APTl vw+yApL0LJpEaa6eqbo7bjT/1bYnT338+FcG/2a9NT4ZIC3Zu1x+S/8q+yj9q+wLPXyOpX+7e8Lx0B+j X34y4F7M/MTVy1C4u7f8hqM/CsnXmJSt2Rj6Bb2K99ZapH6aisXkO2hW3NB800HqE/yk+pRpCg5oaCda afpX+nu3pC8xrsEY1U8/kH6223009JjL/6Z/tY+hH9 AP6DF/07/K4/Qj8jDWgavCu737epQ95cyvC3zklrL4w+tp1hSKKvn69m97i54EO2Mq/0v54Uiow/d9w/ dBS/9qPacsDr+x9oPs+Er4eHo99/gb4eml06+c56/h+5Xa64NoE/L74D5+/FyNLSS7xf9uz++Ddt2HYE +Tr+t5fNaZ/N51wGmT85VY4es/KniGQ2xwwU7fSu/t /Yxrh1145QtH5f3rvI6+XiXxe63MlVmo55ybwGeHH/Llk9YBzguUwh7or8fjyQ413oBybb8g/zXeOQ9H W3KH4Ew9I+rr39tAj5vL/bm35V/V/c/HR02CDcUWun8h0g4Brka8Kj+qbJv+1VXHp1/Su8bfd0L/lc+a 9K+sjk+/p3+RGhN3yrvbc6+rM4pg8lqoT/Xv6FxEA6 XFy/n2Lf06/rHe4HZb4V1Ic8G6ebgOAw9Sl1Sw0Mi385pSRzHsjcZ3b3TV9UN7wN5DK0Y/8SreDt/uGX +V99DO/NDNd0ecok8I30OmSOnR7qV08NKycw00tewniq84k69L/YB+QD+hP+uVJ3+9l26ipR8qt52fO/ YObGbnO6Gzlo5jM1uDmI0OpdXtxH/oA/oB/YB+Qn/4 WNcTv+BO4nzew6kqbc2W4uuie2rkzr8e6Lu1Ko6LBk6s1I4I/yr6V9G/iv5V9K+hf+2CvkHfoD/xKo74 C6t5vAM+yhF/5Yi/csRfOeKvHPFXjvgrT/+tcij4VrcikP+hvYb2+nn+up/nr/rYJ7Vm3RN+OtrraK+j fD38Dlhmaatlsb324+hfR/208eizc5U6+V1atlC84X 8/3/j0e37a77X+F3dC3TZ03N/VeezCMfRoL+CkaIR5odzwRZa/js2KebJ1Kh8Y/nw/ojeCOthk1ha4EM qM5+Pg7lljvMKi9qGxTn43mupV8qf6yzee8PzfJ/pQqoBQ15YanXQ5Tz18o5L+Bygabdi4ZJd2E/mrfQ w9+fcgeoc5v6T/O2Dx9c3y5NmN+CtH/JUj/soRf+WI v/WR3DrOdcF3PrJljX370go2G+/18Xs9+KdUY1h6Kn//avlUDv/K07+o76fw1H40mxZZ0+QhR5E7mrHV T/+kjzNxZF2gkStkacI3MpvXlIIwa//fBpU5me677NFuqfrh5i/6deJF+3X6t1/n+duv8/kxE7Qd3E/o z/qXou5r6r/Dt/d2+KdlVwhp4U63pR7hZ+gVeoPeoH foHfoOfYc+oA/oB/OCttJA2ry3GC4wa3pr91c/0uXn9+Vf6Ro/XTK+buaxb/6tL/8aa9o79A7cqAwo/l UP5tQtB3385P4B/l3+ldZ+y6Nbtiy0ZgV8R5m80g/CQ867r5b/GnX/N3/VZ/6enamBomOM9+G7bTLVHJ o3ytem86R++6swR6zyoH3f6T40Vl0tsblyK8nOu/2r O+9iHq/y565xjb0B8f++zuu/N1+FMOOlN4uy8u8DcG1H/Slqf0hz/Sny0lDJc5Q7JM2gAf8i138F/O16 4jP9iyibzstw80dyrzht1jetnw7a2Lo4th/12SHw6B4q4/tgx/fBju+LAl3SC99Plkmb4Mv+6SU3aWH0 XGv0eS2tx0jQ90FM52Ff1sc2ux80X4+Pup/rM25Xct Jt3pQ7xG13r+6Hn+zeoe/QB/QB/wH4gp9L5wejlb/fy3q/oG/QN+miBjHGu3L8+aty9Hv2Fe/QO/Qd+g 59QB/JS11RyDuYe2GZL1W9Mf57AIb/3sFe4Kby+x1FpaWqz8/Vw/D7fN9P/fl+1ON8P+rRoe/QB/Rxnm tx+I2O+Pae/Ketan+YmOC19Rqt7Jp8Fhd3Bf8tnD7vlKl Hv+hZ/aVg0I505W6nJ7E/irXn+SvFj/Wk79a/FhP/ipSv/irXIuSv/I8zniz/F7lljcP7WN/yvU5+asc 55yp1NcP/irHZ/MDgB09n9pbsU4as2/+dWEc9271N+cYeoVeobelz/WLp2DR5gStJO3lw02Wvf/d22pv jtXlX+24D6zVjigHW/vE8q/ImoEsaBX7Fh7Xi0/Kfo ydAiQvC1o/yr6L9K+rWy40bsv9+I2R/pXm/zuXEhbU7GKlUxrB4+rQB/QB/fn+E9lRf8Itoy9r4/032n ipMpGTfyqlc6CO5IG0Mq/P/Yn1xz6BN54/ejn1Ts2GdcTp7Mo2J/rxrA9R+wfr+AfjNkLfgd2Wpg4Pct 5Hiq0Jzj8Vrm2Apa0Tnv6OKAo5QuM4Gx9NtBxUMzec u6P2D+ovfP7vZqTF+wcD+wcD+wcD+wcD+wcD+wcD+wcD+wcD+ggB5H662P/7b+h5/f9n3IvtE/rAedBe NCpK9R1/Ko/Gm4f9pYjcMbsGfIWzYS/hs6cswq1F1pbR46N84QWv2A0J9V1T5I2Y7R4El0Jb2/3wwz8H +PyWtdFgmyN1XKH/SyMBXw6udB+Fn/o43SPGAwpsJT 8V4K8C/FWAvwrwVwH+OjUaFvglDO4V/YK+Qd+gF+mOrvZuuSpmTQz3J/yMmA9V9DpR/nqWYxA7vgN/Fe FfWvbEnP1T9CaE/nfULeF9bvJ/FaHQK/HNPvr6ZWj4I4TfROuX7S73F6Nv5LfR/gpIG1FPfC2VjwUrvD M2U9cahxL9US0EZ1EM/y8928Z/Ebmf3KqD/ioGxvPA eAZ/FeCvAvxVgL+Cqb1ktPfuz5EytCUBR231Tj41yiJ725z3/iZ/gg5L9mzuKeM/pXXsj0+S/NU+9u27 UbNV9op1/NtI/qrOOR5/IHJwAmqpLa4nlB4c0F4Q+KtR/OYa3mFBnRKc0pM4Sw5Lr/TkqVljYurSlp0K 6+n3Orx0Ol8o3FElRpTB2Ks5AckAnvfzlEu1Gz4667 jn+4RiLr1Xr4Ps8Ij7Hn/QO/Qd+g59QB/QD+dS1JWNb7Fn+LohZ//LoEHZUHjnt0QHmMeP/sp7cXS1I8 dnXEp0h8/nHG0T8zut+AxJNqiMt1gwAr8c+a6x/KutX/tDs3+Ne7Jo5S18Fxu2P+f5O+EhYwuBy1t95h q0itx5LKgx05scBj/dJE5Gq5QxGZEe/fbI0sGUl2j5 Tv4qx/bir/axXuc3+vBaY/UPuKyJiB7EYoS/ZZG/ud+DrBS7fWVbj3/K3D/jNqVkzr+hi6/LeaEnnmFo 2u7brLw/wcQ09uUqpVRunj5uC+WcKv/W1kxnp9mv84rPikUx8Wj+JjB3aqKaTJi38IRHir0sK1EFhU0n I88t5UC4po0tK2gQt/FI+fsTjzTsxCMNP/FII/mrOj 7xSMNPPNKo+Ku3kPqPQiZlJyujCt7sxKWe0EtU62K+x11B8JcW/AFsnYvL5UB6jbRjM+4op92sJiX07t gCcKWU9gb1J/Hto6N/tW3Y6SrJ/UFNnvUXRm6sW2DT1Rw2WL299lrCymJQ9Z16Kz3Cv/J0GD1nPg75Fu P+1YjzvXvg++NN378zBl+jCOgD+iH7eO6a7C9AJM/n ZjFw3Wj+z8h0r5YdDpj/07+m1IhYN8y/VCe77BPB6m5dyNixb46M/mrWsW/OZCR/OGYkg2uwnP/lM2Kc /ZIj+StP/Rhoxl8G/mof++OsPbEPCDcSotDUp4R04k4NtOb/yj7N+Of0HwtHU3lk/PKvkoMaxV+tvgB/ PeJufjFe4yq9cJ8/N5mmzLMYTzaMggiqaqSW3xCwX6 O/TtjV93wOT52GVqzLp3yf5/wBLT9M1yxN/+pKffZvHT9+47yOPzmvs/93XifebKZ/DavJV9mJs++h8z rfQ+d1+Un6vo8bW/zVbCfebLbzPJrFX+Sx2ZyHa9hkfww4hbu+aoK/muCvZvFX+vbI62QbL5HP6Cmck+ A8E/f34NK1m7y3/DxAgx5nst+a4K8m+KtZ/FX+Xv0c G/SFtbU5ncU78Xt4XF1KM6Cn9C/dK465nO1Y5GhM/OBTymARI45tByZ71BM/LaCoHGP4Xc0bs0+b2qHv 1Ug5Ml3NnrR/oZ9HD/5qgr+yci8WkbIEeVneAzjPkMzu6OWkCb1g/irPg/419K+hfw39a+hfQ/8a+hf5 ffyiB21yv4zWfgDH/2oi/9VE/quJ/FcT+o4s9y4M6W +yvF02yb5hXe/TLN0ppegMW/mvJvJfTeS/msh/NZH/aiL/1UR+rfmG3x21ttO2o64GtkA13ybR8i49nh G6b64l1w9zn1k4A6koQl12+/E3Zp/PJs32wsRsGCsU39D7Nas9CZ5zFDwiVgoFNE0O50ZB/tU+hr5Dj/ Wolof/lynne/lynne/zeYeK8LD66+mCtCe2zFF+jRvwPtHWjv IFaT3ofLe8Cbutu5NsgIaWee3L7n/WuSvd6C4TwSV4K/+R55N796T2a01m/z7D+n70SqyHy/Sj8h+avl M23vh3IzjOyybQpox7s/lynne/mhV/nfzsn411K/wNxF/N4q/qGPp5/JZ53n/y4A5LY23c2RXaWtJ3bsT1 WRv7ZVSXWHQH0EM5hnxBdGf8UHpPcGikH7dRalq9k/ lPjNEMFTINwizJvUvJeRIO1lQayEVIEWMGODAjDYNWcYL9Vn/vVC/rvZq6DZHZWNGKbdOj36BH+Fvgf8 1J7v76oqr5YObooA36nd+/u5mfm9E3gWmQEI7VKIIm5pgEk3J49L4mc6tJpEA2XWgjWM3t4JkgTVPW4U LvyK+JqJgtPvQgxO1S9jztF+BPbqqGc9HqLX//xBOf 6HLZ6xNRbe0B2/IS8iwSFw7zEtxOzuP3Ck4dZqHYJRVnsxUHa+B8XGBjH1rpgd386J2aBKzCO5Bvoe03 z2Bb8dC3ZT56Kd6Fk44H1bIm0nDURlnlaOpUwLTZlfUT9tl63ZODmB6YwlnkRaa0MpH/BBgtY0qxk3lt 6NIXKJLGBLKBCQC60RA1UNZMRDBZhkp7Fo/8zni8eO 85UADFRDLIKDOuMWBA74nXdN6RXVeWpuMx5HrMaWbPQQLJuHqFtE1oLdRqxSC5rnssg0GFl7ltVleZMF 4Jws1DI5pXIl7beQLHvHVYIycPejhUD5Nh6BpQXmrUuSw0JZPDHYBjvN6rUs+8zsR/pOg9SjyXNcpYuS zvsy+NkcD0C6A0XyA/Xve7P72kYsJow9AU7LTnnqvE cgo4p8wE+vL6wEW9MWSyp5Td+qB/SQLkokVFHsiFS9y0nsFfqx5XstgJIAOiUCSoEbZksIAambPJcc2B QI1TugNwMgxhoe87lQoYAkwprmYgUbfza9DuHVZa9ONSkwhyg2TkmItY6p8ZQYRDOG4hLOF8mPEzd0CH gMpWW4YmyP/ruPvz98w7lX7KljdrXO9mqr6N1LHu4R gl+MEyJVKiXl3UfTRtMvh37YHPJv24n7WYK3+30DJdKew4o9icli0dq8/R1v31IzCuIp50gitRLOYPQO U7tTtLxf6nU+TqT87HiS9Tg7zfIdt7/EBYCPmJXrOTMlV4YIgFS8fNQK1fKUjsrnsAX8TcgT496yTCsP wGgzWWlJ8Zb0dJgB2AaZDG1DqRe98joEWiDbUqdxyx T5HwfsJCLm6ajK35hnP/7Lpqlbb+PLbPIBZaLXnNL8KPMKBzJcoYQtGKQZVyRvJZ3a5c0V+BiBARIkpE iRgRI+VZdWQhHNH1NFbKeJAaNXY5XFGgrL/RTTo6CiqHxlXW9IONMA29bk0jq8H3AsrQO3tFAClrCUBu JGRnsVAUxxWK2cMUcm638EtpuazjRIRpq9V0JwX256 a91M0fYJj8vCdLzCSxOCjp/pOU95/jgE2x8v0lDn7/SXv/Og56BaZgq5M6/pPU95/kvv8k+f0n2e8/SX //Xs20EpCzEsXBuBWIoT4dDMvc93LaGHvIl9GytLKMdWhkySOxYAbx5FxYEqu1icDVymV0RduRw717MS bjsJLlKLnMvZnDfZZrQWMJ7HJWRbKoPD+k3K9wciPe qV1QyXK5OJTeMUvZoOuU2fXbAAggEDt7qhZQde3jeZySluU2L1c+/QbcZrlXcThjsFfywXQGlXHD4oE0 MnZb3tapur3+LVWJ2fXjn4j+S5KHj+DnZxO+pdfH12qRzqxfn/4jKBElYkSMiBNxIvSRkCmjtRlEgsgg MojgfaFVPNwSMqF++VWCjBktU+cLzypWk7pxtPrTRx 8RlAiejZlYv/o0M+uRw8cNcNBFhPJY7i3x9D1JHEy3d2Z/C7JfHEH1uDbyJ2ujzkP6eYwDx2s0HtjO7y QbBU6TVGJlBihl8j4hqk1jCkhV77Xb+kE54PjK/YogayvlfqU+x4uzv3eqBCeb+1L6NHGPVva9+0fwh+ yLwLmG0ZVd158wa8+p9/PlM8Sew/2orpgqlxr1Z80j Hg3vLTuugZcvrKw9DatU/s+FHHyCg5TA/3XG+vlMhaC4un52rzKBt1UzdELAG/aAXXxisSuy+ESJ+s/i Z97SCivNB4/omaPSA2dOhG6u05+dJM+2+DO7maNnhDh1CSR42kjt9eHvFX+9WmVO/k1gvOuUOnd9ZCUi 35Z5+rgyg88zlFmoVX3VprqiZ2PsNUaFnLUF+TdaJe rdOKbnD6md0nF4HSqysLyALYJmxyFzDWSOvwp8cufA8D/4b7uJKcYMaEQqinOLggHVTQ6a4W4RG6vc/Y 1JgEIy9GRW9zrTGlSFMnr6TXOaJLXBjQscpJ0E1flRGHNxOzhil+Qs9EkFpbNlIAyQUwLdEDDBM1f3tG LBK1cy/idWPh2L0d/0l1HWHkZvGxcN6taq68dX60Mf Ezh4GDP58ze8R7M+ymTEOwE035zD/csfAJ0j14B7aDmyk9sARO+PIn002Y7TOi9a8E6gow3yVSASfKkT [employer] ASS[employer]IATE/lh2Se/60QHK4jECk/omcy1X+xeZnrfy+dmex/dvF9xMEnyA/JEMLgq4qF/0kdZcb/IpUy5X/RdJnz [file] 6xDfS2C63/+89v3//0q0xfDp98+805M79j5Dk/fvv+229+9+79h28+/wAj572/5otfff/29vb+u+8/fv Biw0f09f1+/+mu87539l2htsx85uw/eru7cKNih2E1 b779/sPb+6//+ePXv/kvfnY/h++yejxq79c/fnv35T/2Yg5xzdo/9PW7b9++/O43v/3i/tjvfh8IQw+/ vv/f8m8MhbC+++rdLz+7N1S/Fkdd0L6+zroVmkyf3gwdz4/77paeIm3/0pEgy63/8e0/gZl2ay7+vH31 3fff/uq/+OftE9z//PIvf/73P/z0px//7e1f//fblz /89D9++Omvf/f2/i//+xYIp063l//W/F/+3v9mg58bh0euE3y/+gr1F7h9++1v/lHq9ftm+5Tif/rTL/ 4P37meThebQ/hPvwOu4/U+0VZ4mc9/GZxiGD67//29e71ZANFofKb+/AejtG7O9Gc2h59yz7Q0S4++hu yv6OHOxDS5k3f/+O8//jHOjfVkj5H0kMlf8t970v0z 373/9Yg6X5s7+pMG6yf/PEb+5fprWreszf+g3xPrnF1iVtQndKsNAHFM2HIq+rsf//zXv3/76Ye//vjJ 3Q1WbUsA5g06yS19wXseHs2+9g3+9v3bH/781x9/+n9/+ON/ajwtc92Cn/e+sSE/P/vG/vH9h7d/+5+v e//DX/1391Cp2BN/T89g7eP+8eMv/iNo97iI6mGpFt UXL3/2l4VgK7kfWgfp2z5z/fMZL8iCK2Jai67+Ywe13VbnJ/v49sP/+vE//vPMefqtXZ/9X99/+9mdUe Q1+bS9/e+f/uVvf/br3Q9f/finH/74SQ/PT/Avf/ifv//hP/7ww59/jcGg896+8Oef//+ZTmF//Nf//N /HiO//8pc/qo1ghGb680/5/edOC6+ImKwdcOMff/z9 //jzH37/urnPv/r1d9+3e6iq0g613yTob1dr+fv/+Kdb7H9d627+/u6Il0bqnpPUe//20bqAYI2+7je/ efftxw+8b0QZ6r/8k/ihHt7yfxJh/sBvk1lqw3/86uvBakmt9Whvxnn3wZjDg5O2z2/D1++fv4y w3uGhVMG5We6h0k5/wL883qLcu0iU8o88Dcttu5YX2 0re+Qzqv5/6qEW1avxsaXeiYEuTQ0FCQ7ic1QlRlJ9JLRgg4MpYBbxAJm3oKCnGSkvhhOdd9EdtzrqV3 Rga4RxRiWzFENtNyBtYgg8VGNjDxO9yHMpRtCjXXMtW9LpJRAdIlH8NzYqHWDFRR3XEETounVfYuQoMF I+SsGuEK0bcawcPWLff6NoVKwxNUerHJBuN8Z1oMcg KULhM3CtkX39WTCfQ1BinoX0QEY2CFGqVnAsIPMxeZSmWWCjIWU+BqFhNA1uzdyyQLQmp2CgPNrnIFB6 oG9gMLxTOLWOYQqOSKzmChV8x29pqjXGWODgTEFfXB9KtnWapMnnpzBjiZTbNVC4IfIkJWW6RQJjXRI7 ZMOUPOHtKORgENYjZDEeI4RwmIorWPnMZWOESBrTEN ykLxLvh5W4IUAqeaOMF2XSAkJWRoxaI6VAX9JGBSJZKIY0HRH2CnKnCW8RbEKqCTM1IQlMCQVVDTkETF seRvUuc5D9RVWsV3GqLAYabyBoIRQRQFvsEalpTV3ohOdvltegU8CnwYJkGVKUDFHpBNLbZRLbKGCvU9 Fuk8J8G3RpMXoANUQYDWfYADgyRcE6u13mxlCEJLAw ZXMpID4+CD5mg6VcOp1GBSHlXY4sray3DG0NwDSqZI6DZTryzhTfU3mabxQlNrXhQVJSNF2qP2DktR41 CATHERINE+EaTqVV4loye3umQfQoTkRBQmXRUyRNXkVWdnGRFbDUXaUUYwBYI9BHH3FXTtRnPpEARgPfE1WjHf BWKtBZFtjwEFOQEuOJJ5EYWuTdFqFWVeTJSjJFloOY ZnBJG2ILu0OPKeHVWyVZ1jNwCpDLBrPEBlOIDmLvJ4OsFrQgXJMBWxXHGwAZAaQuBbEAWkKADoEKjwNR SqYQDkVGy8IZHdFEUfRD2nNzSpQZQpJLJaPUTjVSChNFQwbwGLNRIvFZMfLUP2ANGjQCLiPXOpARlwKU WfKUEvWSG3GBOyUIAgWP4kWyJzGICjNSB9UdPoJJWv YBPycvQHYTQxXIYmRAC2KATdWETrZKPnDRqjHWAaQKZtPaF6TUElSRGuEZ0mCxPzIVOiFYT6RPHkLFZc UHGiaiTIWWOdBDAiNQg0QkRlUSPwZQXoMHqsLBXwJFXtIOjdIJTwLXEvNP6nDaAvGCXhAGJpVLHlLUMn WBJoutBHWXBhRFZgTDQ5BgTbGWZxTVIyXTkpPDNmHC CpYFU5BGUkNINqMG0tXnOoPJHqFrHwTfRpHCIxJVFyckZTIHHeVUGqXGWaGZPeAYJeLPOzGNxgPOPgAM SpItH2XGXvPUYeOL0oXwLbBAZuHEQ9ESIbQXYjTHWglxSLMYMlOORcYJWwNAZ8JIIsMZQzPGy4rxAtfV InYkx4Yu1AmTecEQT2Gj5GmfMfAPHmGRGMHl4Kk411 IDUgMCBSCgo+NsukfCNfwVqcGHENIdT2WiJZJMFGN5A= ID Date Data Source [id number] [facility]07[facility]2020 10[facility]50[facility] YESMicroorganism XXX Cult : 2019 nCoV Real-Time RT-PCR: NOT DETECTEDTest performed using [employer] Respiratory Panel. This test is only for use under Food and Drug Administration's Emergency Use Authorization.Additional information is available on the following FDA websites for health care providers and patients. https://www.[employer].gov/[employer]Space/075244/download , https://www.fda.gov/med ia/021432/downloadPolymerase chain reaction is NEGATIVE for Influenza A H1, H3 and 2009 H1 viruses, Influenza B virus, Respiratory syncytial virus, Human metapneumovirus, Parainfluenza virus 1,2,3 and 4, Adenovirus, Rhinovirus/ Enterovirus, Coronavirus HKU1, NL63, OC43 and 229E, Bordetella pertussis, B. parapertussis, Mycoplasma pneumoniae and Chlamydia pneumoniae. Name Value Range Interpretation Code Description Data Michelle rce(s) Supporting Document(s) ID Date Data Source [id number] 06/07/2020 06:08:00 PM [facility] XXX-Imp : YESMicroorganism XXX Cult : 2019 nCoV Real-Time RT-PCR: NOT DETECTEDTest performed using [employer] Respiratory Panel. This test is only for use under Food and Drug Administration's Emergency Use Authorization.Additional information is available on the following FDA websites for health care providers and patients. https://www.[employer].gov/[employer]Space/273244/download , https://www.fda.gov/med ia/095942/downloadPolymerase chain reaction is NEGATIVE for Influenza A H1, H3 and 2009 H1 viruses, Influenza B virus, Respiratory syncytial virus, Human metapneumovirus, Parainfluenza virus 1,2,3 and 4, Adenovirus, Rhinovirus/ Enterovirus, Coronavirus HKU1, NL63, OC43 and 229E, Bordetella pertussis, B. parapertussis, Mycoplasma pneumoniae and Chlamydia pneumoniae. Name Value Range Interpretation Code Description Data Michelle rce(s) Supporting Document(s) Microorganism identified in Unspecified specimen by [facility] This lab was ordered by [facility] and reported by [facility]. ID Date Data Source [id number] 06/07/2020 06:13:30 PM EDT [facility] Name Value Range Interpretation Code Description Data Michelle rce(s) Supporting Document(s) Troponin I.cardiac [Mass/volume] in Blood 0.00 ng/mL 0.00-0.08 [facility] ID Date Data Source [id number] 06/07/2020 05:08:58 PM [facility] XR CHEST FRONTAL AND LATERAL [id number] RESULTInterpreted by:Emmanuel Mendiola MDINDICATION: chest pain. TECHNIQUE: [...] rce(s) Supporting Document(s) ID Date Data Source [id number] 06/07/2020 05:23:15 PM [facility] Name Value Range Interpretation Code Description Data Michelle rce(s) Supporting Document(s) Choriogonadotropin.beta subunit free [Units/volume] in Serum or Plasm a <5 [facility] (NOTE)Levels between 5 and 25 [IU]/L may indicate earlypregnancy and should be repeated after 48 hours. ID Date Data Source [id number] [facility] Interpretation Code Description Data Michelle rce(s) Supporting Document(s) Troponin I.cardiac [Mass/volume] in Blood 0.12 ng/mL 0.00-0.08 H [facility] ID Date Data Source [id number] 06/07/2020 05:39:38 PM [facility] Name Value Range Interpretation Code Description Data Michelle rce(s) Supporting Document(s) Natriuretic peptide.B prohormone N-Terminal [Mass/volu me] in Serum or Plasma 417 pg/mL <125 H [facility] ID Date Data Source [id number] 06/07/2020 05:14:23 PM [facility] Name Value Range Interpretation Code Description Data Michelle rce(s) Supporting Document(s) Leukocytes [#/volume] in Blood by Automated count 6.2 10*3/uL 4-10 [facility] Erythrocytes [#/volume] in Blood by Automated count 4.50 10*6/uL 4.1- 5.3 [facility] Hemoglobin [Mass/volume] in Blood 13.2 g/dL 11.5-15.5 [facility] Hematocrit [Volume Fraction] of Blood by Automated count 40.4 % 3 6-45 [facility] Erythrocyte mean corpuscular volume [Entitic volume] by Auto mated count 89.8 fL 80-96 [facility] Erythrocyte mean corpuscular hemoglobin [Entitic mass] by Automated count 29.5 pg 27-33 [facility] Erythrocyte mean corpuscular hemoglobin concentration [Mass/volume] by Automated count 32.8 g/dL 32.0-[facility] width [Ratio] by Automated count 13.8 % 11.5-14.5 [facility] Platelets [#/volume] in Blood by Automated count 220 10*3/uL 150-400 [facility] Differential cell count method - Blood [facility] Neutrophils/100 leukocytes in Blood by Automated count 68 % [facility] Lymphocytes/100 leukocytes in Blood by Automated count 25 % [facility] Monocytes/100 leukocytes in Blood by Automated count 5 % [facility] Eosinophils/100 leukocytes in Blood by Automated count 1 % [facility] Basophils/100 leukocytes in Blood by Automated count 1 % [facility] Neutrophils [#/volume] in Blood by Automated count 4.29 10*3/uL 1.8-7 .0 [facility] Lymphocytes [#/volume] in Blood by Automated count 1.53 10*3/uL 1.2-4 .0 [facility] Monocytes [#/volume] in Blood by Automated count 0.30 10*3/uL 0-0.8 [facility] Eosinophils [#/volume] in Blood by Automated count 0.08 10*3/uL 0-0.5 [facility] Basophils [#/volume] in Blood by Automated count 0.04 10*3/uL 0-0.2 [facility] Nucleated erythrocytes/100 leukocytes [Ratio] in Blood by Automated count 0 /100{WBCs} 0-0 [facility] ID Date Data Source [id number] 06/07/2020 05:39:38 PM [facility] Name Value Range Interpretation Code Description Data Michelle rce(s) Supporting Document(s) Albumin [Mass/volume] in Serum or Plasma by Bromocresol green (BCG) dye binding method 4.2 g/dL 3.5-5.2 [facility] al Bilirubin.total [Mass/volume] in Serum or Plasma 0.4 mg/dL <1.2 [facility] Bilirubin.direct [Mass/volume] in Serum or Plasma <0.3 [facility] Alkaline phosphatase [Enzymatic activity/volume] in Serum or Plasma 74 U/L 35-104 [facility] Aspartate aminotransferase [Enzymatic activity/volume] in Serum or Plasma 17 U/L <32 [facility] Alanine aminotransferase [Enzymatic activity/volume] in Seru m or Plasma 8 U/L <33 [facility] Protein [Mass/volume] in Serum or Plasma 6.3 g/dL 6.4-8.3 L [facility] ID Date Data Source [id number] 06/07/2020 06:28:37 PM [facility] Name Value Range Interpretation Code Description Data Michelle rce(s) Supporting Document(s) Lipase [Enzymatic activity/volume] in Serum or Plasma 39 U/L 13-6 0 [facility] ID Date Data Source [id number] 06/07/2020 09:36:59 PM [facility] Value Range Interpretation Code Description Data Michelle rce(s) Supporting Document(s) Cholesterol [Mass/volume] in Serum or Plasma 159 mg/dL <200 [facility] Triglyceride [Mass/volume] in Serum or Plasma 116 mg/dL <150 [facility] Cholesterol in HDL [Mass/volume] in Serum or Plasma 59 mg/dL >50 [facility] Cholesterol in LDL [Mass/volume] in Serum or Plasma by calcu lation 78 mg/dL <100 [facility] Cholesterol in VLDL [Mass/volume] in Serum or Plasma by calc ulation 23 mg/dl 16-42 [facility] Cholesterol non HDL [Mass/volume] in Serum or Plasma 101 mg/dL <130 [facility] ID Date Data Source [id number] 06/07/2020 09:02:29 PM [facility] Name Value Range Interpretation Code Description Data Michelle rce(s) Supporting Document(s) Phosphate [Mass/volume] in Serum or Plasma 3.2 mg/dL 2.5-4.5 [facility] ID Date Data Source [id number] 06/07/2020 09:02:29 PM [facility] Value Range Interpretation Code Description Data Michelle rce(s) Supporting Document(s) Magnesium [Mass/volume] in Serum or Plasma 2.1 mg/dL 1.6-2.6 [facility] ID Date Data Source [id number] 06/07/2020 05:39:38 PM [facility] Value Range Interpretation Code Description Data Michelle rce(s) Supporting Document(s) Troponin T.cardiac [Mass/volume] in Serum or Plasma <0.01 [facility] ID Date Data Source [id number] 06/07/2020 05:39:38 PM [facility] Value Range Interpretation Code Description Data Michelle rce(s) Supporting Document(s) Bicarbonate [Moles/volume] in Serum 25 mmol/L -29 [facility] Chloride [Moles/volume] in Serum or Plasma 109 mmol/L 98-107 H [facility] Creatinine [Mass/volume] in Serum or Plasma 0.69 mg/dL 0.50-0.90 [facility] Glucose [Mass/volume] in Serum or Plasma 82 mg/dL 70-140 [facility] Potassium [Moles/volume] in Serum or Plasma 4.0 mmol/L 3.4-5.1 [facility] Sodium [Moles/volume] in Serum or Plasma 144 mmol/L 136-145 [facility] Urea nitrogen [Mass/volume] in Serum or Plasma 8 mg/dL 6-20 [facility] Anion gap 3 in Serum or Plasma 10 mmol/L 8-15 [facility] Osmolality of Serum or Plasma by calculation 295 mosm/kg 275-300 [facility] Creatinine/Urea nitrogen [Mass Ratio] in Serum or Plasma 12 [facility] Calcium [Mass/volume] in Serum or Plasma 9.1 mg/dL 8.6-10.0 [facility] Glomerular filtration rate/1.73 sq M pre dicted among non-blacks [Volume Rate/Area] in Serum or Plasma by Creatinine-based formula (MDRD) >6 0 [facility] Glomerular filtration rate/1.73 sq M pre dicted among blacks [Volume Rate/Area] in Serum or Plasma by Creatinine-based formula (MDRD) >60 [facility] ID Date Data Source [id number] 06/07/2020 09:23:57 PM EDT [facility] Name Value Range Interpretation Code Description Data Michelle rce(s) Supporting Document(s) Hemoglobin A1c/Hemoglobin.total in Blood by HPLC 5.0 % 4.0-6.0 [facility] (NOTE)<5.7% Average risk of diabetes (ADA)5.7-6.4% Increased risk of diabetes(ADA)>/= 6.5% Diagnostic for diabetes(ADA) Glucose mean value [Mass/volume] in Blood Estimated fr om glycated hemoglobin 97 mg/dL <126 [facility] ID Date Data Source [id number] 05/30/2020 09:43:00 AM EDT [facility] DATE OF EXAMINATION: 05/29/2020 23:17 EDT BRAIN [...] rce(s) Supporting Document(s) ID Date Data Source [id number] 05/30/2020 09:43:00 AM [facility] DATE OF EXAMINATION: 05/29/2020 23:17 EDT ABD/PEL [...] arrone(s) Supporting Document(s) ID Date Data Source [id number] 05/30/2020 09:43:00 AM [facility] DATE OF EXAMINATION: 05/29/2020 23:17 EDT SINUS [...] rce(s) Supporting Document(s) ID Date Data Source [id number] 05/30/2020 04:35:00 AM EDT [facility] Patient: DAKOTA RAYMUNDO Observa tion Report - [facility]VisitID: [id number] [place] [address] [phone], FRegistration Date/Time: 05/29/2020 22:16 Weight:78.4 kg (S). [...] rce(s) Supporting Document(s) ID Date Data Source [id number] 05/31/2020 04:05:00 PM EDT [facility] Name Value Range Interpretation Code Description Data Michelle rce(s) Supporting Document(s) H. PYLORI, IGM ABS <9.0 units 0.0-8.9 [facility] Negative <9.0 Equivocal 9.0 - 11.0 Positive > 11.0This test was developed and its performance characteristicsdetermined by [facility]. It has not been cleared orapproved by the Food and Drug Administration.Performed at: RN - [facility] [address] [id number] Director: Ingris Marcano MD, Phone: [phone] H. PYLORI, IGG ABS 0.17 0.00-0.79 [facility] INF[facility] Result Units: Index Value Negative <0.80 Equivocal 0.80 - 0.89 Positive >0.89 H. PYLORI, IGA ABS <9.0 units 0.0-8.9 [facility] Negative <9.0 Equivocal 9.0 - 11.0 Positive >11.0 ID Date Data Source [id number] 05/31/2020 04:05:00 PM EDT [facility] Name Value [...] and Drug Administration. ID Date Data Source [id number] 05/30/2020 12:56:00 AM EDT [facility] TSYSORDER [id number] Name Value Range Interpretation Code Description Data [facility] rce(s) Supporting Document(s) Campylobacter Not Detected Detected Not [facility] Clostridium difficile toxin AB Not Detected Detected [facility] Due to the high asymptomatic carriage ra leo, especiallyin young children, the clinical relevance of the detectionof toxigenic C. difficile from stool should be consideredin the context of other clinical findings, patient age, andrisk factores which include hospitalization and antibioticexposure. Plesiomonas shigelloides Not Detected Detected Not [facility] Salmonella Not Detected Detected Not [facility] Vibrio Not Detected Detected [facility] spital Vibrio cholerae Not Detected Detected [facility] Yersinia enterocolitica Not Detected Detected [facility] Enteroaggregative E. coli Not Detected Detected [facility] Enteropathogenic E. coli Not Detected Detected [facility] Enterotoxigenic E. coli Not Detected Detected [facility] Shiga-like toxin-prod E. coli Not Detected Detected [facility] E. coli O157 Not Detected Detected [facility] Shigella/Enteroinvasive E coli Not Detected Detected [facility] Cryptosporidium Not Detected Detected [facility] Cyclospora cayetanensis Not Detected Detected [facility] Entamoeba histolytica Not Detected Detected [facility] Giardia Lamblia Not Detected Detected [facility] Adenovirus F 40/41 Not Detected Detected Not [facility] Astrovirus Not Detected Detected Not [facility] Norovirus GI/GII Not Detected Detected Not [facility] Rotavirus A Not Detected Detected Not [facility] Sapovirus Not Detected Detected Not [facility] The Above results have been determined b y using the [employer] system.[employer] is an automated in vitro diagnostic system thatutilizes nested multiplex Polymerase Chain Reaction (PCR)and high-resolution melting analysis to detect and identifymultiple nucleic acid targets from clinical specimens. ID Date Data Source [id number] 05/29/2020 11:36:00 PM EDT [facility] TSYSORDER [id number] Name Value Range Interpretation Code Description Data Michelle rce(s) Supporting Document(s) PROTHROMBIN TIME (PATIENT) 10.1 SECONDS 9.2-11.6 [facility] INR 0.97 0.87-1.06 [facility] ID Date Data Source [id number] 05/29/2020 11:36:00 PM EDT [facility] TSYSORDER [id number] Name Value Range Interpretation Code Description Data Michelle rce(s) Supporting Document(s) PARTIAL THROMBOPLASTIN TIME 25.5 SECONDS 21.4-30.2 [facility] ID Date Data Source [id number] 05/29/2020 11:35:00 PM EDT [facility] TSYSORDER [id number] Name Value Range Interpretation Code Description Data Michelle rce(s) Supporting Document(s) MAGNESIUM 1.9 mg/dL 1.8-2.4 [facility] ID Date Data Source [id number] 05/29/2020 11:35:00 PM EDT [facility] TSYSORDER [id number] Name Value Range Interpretation Code Description Data Michelle rce(s) Supporting Document(s) LIPASE 336 U/L [id number] [facility] ID Date Data Source [id number] 05/29/2020 11:35:00 PM EDT [facility] TSYSORDER [id number] Name Value Range Interpretation Code Description Data Michelle rce(s) Supporting Document(s) GLUCOSE 83 mg/dL 74-106 [facility] BLOOD UREA NITROGEN 17 mg/dL 7-18 [facility] CREATININE 0.8 mg/dL 0.6-1.0 [facility] SODIUM 139 mmol/L 136-145 [facility] POTASSIUM 4.5 mmol/L 3.5-5.1 [facility] CHLORIDE 104 mmol/L 98-107 [facility] CO2 31 mmol/L 21-32 [facility] CALCIUM 9.0 mg/dL 8.5-10.1 [facility] ANION GAP 4.0 mmol/L 5-12 L [facility] GLOMERULAR FILTRATION RATE 84 mL/min Lydia McLeod [facility] GFR IS CALCULATED IN mL/min/1.73m2 KYLEIGH L FUNCTION: >90MILDLY DECREASED: 60-89MILDY TO MODERATELY DECREASED: 45-59 MODERATELY TO SEVERELY DECREASED: 30-44SEVERELY DECREASED: 15-29RENAL FAILURE: <15 AST 12 U/L 15-37 L [facility] ALT 20 U/L 12-78 [facility] ALKALINE PHOSPHATASE 77 U/L 46-116 [facility] TOTAL BILIRUBIN 0.3 mg/dL 0.2-1.0 [facility] TOTAL PROTEIN 6.3 g/dl 6.4-8.2 L [facility] ALBUMIN 3.4 gm/dL 3.4-5.0 [facility] ID Date Data Source [id number] 05/29/2020 11:31:00 PM EDT [facility] ital TSYSORDER [id number] Name Value Range Interpretation Code Description Data Michelle rce(s) Supporting Document(s) URINE COLOR. [facility] URINE APPEARANCE CLEAR [facility] SPECIFIC GRAVITY,URINE >= 1.030 1.001-1.035 [facility] URINE LEUKOCYTE ESTERASE NEGATIVE NEGATIVE [facility] URINE NITRATE NEGATIVE NEGATIVE [facility] PH,URINE 6.0 5.0-9.0 [facility] URINE PROTEIN NEGATIVE mg/dL NEGATIVE [facility] URINE GLUCOSE (UA) NEGATIVE mg/dL NEGATIVE [facility] URINE KETONE NEGATIVE mg/dL NEGATIVE [facility] UROBILINOGEN NORMAL(0.2-1) mg/dL 0-1 [facility] URINE BILIRUBIN NEGATIVE NEGATIVE [facility] URINE BLOOD NEGATIVE NEGATIVE [facility] ID Date Data Source [id number] 05/29/2020 11:19:00 PM EDT [facility] l TSYSORDER [id number] Name Value Range Interpretation Code Description Data Michelle rce(s) Supporting Document(s) WHITE BLOOD COUNT 5.8 K/mm3 4.0-10.0 [facility] RED BLOOD COUNT 4.34 M/mm3 4.00-5.50 [facility] l HEMOGLOBIN 13.0 gm/dL 12.0-16.0 [facility] HEMATOCRIT 39.0 % 36.0-48.8 [facility] MEAN CELL VOLUME 89.9 fl 80-96 [facility] MEAN CORPUSCULAR HEMOGLOBIN 30.0 pg 27.0-31.0 [facility] MEAN CORPUSCULAR HGB CONC 33.3 g/dl 32.0-36.0 [facility] RED CELL DISTRIBUTION WIDTH 12.9 % 10.0-14.5 [facility] PLATELET COUNT 236 K/mm3 172-450 [facility] MEAN PLATELET VOLUME 10.5 fl 9.0-13.0 [facility]ital GRAN % 55.6 % 50-80.0 [facility] IG% 0.2 % 0.0-0.2 [facility] LYMPH % 35.6 % 25.0-50.0 [facility] MONO % 6.0 % 2.0-10.0 [facility] EOS % 1.9 % 0-5.0 [facility] BASO % 0.7 % 0.0-2.0 [facility] GRAN # 3.2 K/mm3 2.0-8.00 [facility] IG# 0.0 K/mm3 0.0-0.2 [facility] LYMPH # 2.1 K/mm3 1.0-5.0 [facility] MONO # 0.4 K/mm3 0.10-1.20 [facility] EOS # 0.1 K/mm3 0.0-0.5 [facility] BASO # 0.0 K/mm3 0.0-0.2 [facility] ID Date Data Source [id number] 02/05/2020 10:10:00 AM EDT [facility] Name Value Range Interpretation Code Description Data Michelle rce(s) Supporting Document(s) SARS CORONAVIRUS 2 RNA [facility] This lab was ordered by [facility] and reported by [facility]. ID Date Data Source [id number] 11/12/2019 08:51:00 PM EST [facility] 1 OrderSheet [facility] Emergency Department [address] [place] [address] Phone #: ext- [phone] 11/12/2019 20:48 Patient: DAKOTA RAYMUNDO [facility]#: [id number] Sex: F : 1990 Age: 29yWEIGHT:83.4 kg [...] Bolus 1000 Ryan Webster R.N. 2 OrderSheet [facility] Emergency Department [address] [place] [address] Phone #: ext- [phone] 11/12/2019 20:48 Patient: DAKOTA RAYMUNDO Sex: F : 1990 Age: 29ymL (X1) M.D.;Phenergan 25 mg 21:22 11/12/2019 21:33 Olivier,in 50 mL NS, give Ryan Webster R.NYoselynwide open: 25 mg M.D.;(NOW x1, HIGHALERTMEDICATION)Ativan IVP 1 mg 21:55 11/12/2019 22:03 Olivier,(HIGH ALERT AlysiarinRyan R.N.MEDICATION) M.D.;raNITIdine IVPB 50 23:34 11/12/2019 23:39 [...] rce(s) Supporting Document(s) ID Date Data Source [id number] 11/12/2019 08:51:00 PM [facility] 1 Medication Reconciliation Report [facility] Emergency Department [address] [place] [address] Phone #: ext- [phone] 11/12/2019 20:48 Patient: DAKOTA RAMYUNDO Sex: F : 1990 Age: 29yWeight: 83.4 [...] to the patient: 2 Medication Reconciliation Report [facility] Emergency Department [address] [place] [address] Phone #: ext- [phone] 11/12/2019 20:48 Patient: DAKOTA RAYMUNDO Sex: F : 1990 Age: 29yProtonix 40 mg tablet,delayed release Take 1 tablet once a day for 30 days -- Dispense 30 tablet.Refills: 1. Substitution permitted.[facility] [place] [address]. .Zofran 4 mg tablet Take 1 tablet four times a day as needed for 4 days -- Dispense 16 tablet. Refills: 0.Substitution permitted.[facility] [address] - [address] [place] [address]. . -- Ryan Webster M.D. Name Value Range Interpretation Code Description Data Michelle rce(s) Supporting Document(s) ID Date Data Source [id number] 11/12/2019 08:51:00 PM EST [facility] 1 Medication Administration Record [facility] Emergency Department [address] [place] [address] Phone #: ext- [phone] 11/12/2019 20:48 Patient: DAKOTA RAYMUNDO Sex: F : 1990 Age: 29yWeight: 83.4 kgHeight/Length: 61 inBMI: 34.8ALLERGIES: None, Toradol Date/Time Medication Administered Medication OrderedStart NS [IV] NS IV 1000 mL Bolus: : Bolus [id number] 11/12/2019 Dose: IV Fluids mL (X1)Munir Aguayo [...] 50 mL bag00:27 11/13/2019 Site: #1 right Munir Frank R.N. Name Value Range Interpretation Code Description Data Michelle rce(s) Supporting Document(s) ID Date Data Source [id number] 11/12/2019 08:51:00 PM EST [facility] 1 General Instructions [facility] Emergency Department [address] [place] [address] Phone #: ext- [phone] 11/12/2019 20:48 Patient: [...] days -- Dispense 30 tablet.Refills: 1. Substitution permitted.[facility] [address] [place] [address]. .Zofran 4 mg tablet Take 1 tablet four times a day as needed for 4 days -- Dispense 16 tablet. Refills: 0.Substitution permitted.[facility] [place] [address]. .Follow-up:Return to the emergency department as needed. Follow up with your healthcare provider in two dayseven if well. Call for an appointment. Reason for referral: evaluation and treatment. Summary of care 2 General Instructions [facility] Emergency Department [address] [place] [address] Phone #: nup- [phone] 11/12/2019 20:48 Patient: DAKOTA RAYMUNDO Sex: F [...] viral gastroenteritis may include: 3 General Instructions [facility] Emergency Department [address] [place] [address] Phone #: ext- [phone] 11/12/2019 20:48 Patient: [...] with soap and water or use alcohol-based tool tender to prevent the spread of infection. Wash your hands after touching anyone who is sick. Wash your hands or use alcohol-based tool tender after using the toilet and before meals. [...] Keep uncooked meats away from cooked and shiuj-br-mfk foods.MedicineYou may use acetaminophen or NSAID medicines [...] or after a stroke). 4 General Instructions [facility] Emergency Department [address] [place] [address], [place] [address] Phone #: ext- [phone] 11/12/2019 20:48 Patient: [...] and your symptoms improve. 5 General Instructions [facility] Emergency Department [address] [place] [address] Phone #: ext- [phone] 11/12/2019 20:48 Patient: DAKOTA RAYMUNDO Sex: F : 1990 Age: 29y If at any time it starts getting worse again, go back to clear liquids until you feel better.Follow-up careFollow up with your healthcare provider, or as advised. Call your provider if you don't get better hours or if diarrhea lasts more than a week. Also follow up if you are unable to keep down liquidsand get dehydrated. If a stool (diarrhea) sample was taken, call as directed for the results.Call [phone] if any of these occur: T rouble [...] your healthcare provider Sterling Vela General Instructions [facility] Emergency Department [address] [place] [address] Phone #: ext- [phone] 11/12/2019 20:48 Patient: DAKOTA RAYMUNDO Sex: F : 1990 Age: 29y [phone] [employer]. [address] [place] [address], [place] [address]. All rights reserved. This information is not [...] when lying down.Home care 7 General Instructions [facility] Emergency Department [address] [place] [address] Phone #: ext- [phone] 11/12/2019 20:48 Patient: [...] of the following occur: 8 General Instructions [facility] Emergency Department [address] [place] [address] Phone #: ext- [phone] 11/12/2019 20:48 Patient: DAKOTA RAYMUNDO Sex: F : 1990 Age: 29y Stomach pain gets worse or moves to the lower right abdomen (appendix area) Chest pain appears or gets worse, or spreads to the back, neck, shoulder, or arm An bndh-xfl-fxbgqcb trial of medicine doesn't relieve your symptoms Weight loss that can't be explained Trouble or pain swallowing Frequent vomiting (can't keep down liquids) Blood in the stool or vomit (red or black in color) Feeling weak or dizzy Fever of 100.4F (38C) or higher, or as directed by your healthcare provider [phone] [employer]. [address] [place] [address]. All rights reserved. This information is not intended as asubstitute for professional medical care. Always follow your healthcare professional's instructions. You have been given the following additional information: Gastroenteritis, Viral (Adult) GERD (Adult)(Electronically signed by Ryan Webster M.D. 11/13/2019 00:29) Name Value Range Interpretation Code Description Data Michelle rce(s) Supporting Document(s) ID Date Data Source [id number] 11/12/2019 08:51:00 PM EST [facility] 1 Clinical Report - Nurses [facility] Emergency Department [address] [place] [address] Phone #: ext- [phone] 11/12/2019 20:48 Patient: DAKOTA RAYMUNDO Sex: F : 1990 Age: 29yTRIAGEArrived by private vehicle. Historian: patient.Triage time: 20:49 11/12/2019.Chief Complaint: ABDOMINAL PAIN.Onset. (2 days ago). ( States that gabapentin is not helping. Vomiting and diarrhea stools, Like"mustard"). She has had fever (100.1).Treatment [facility]ULKER:Recently seen at this facility; seen for similar [...] but declined (hours). 2 Clinical Report - [facility] Emergency Department [address] [place] [address] Phone #: ext- [phone] 11/12/2019 20:48 Patient: [...] No infectious disease exposure. --20:57 11/12/19 Zachary Alonzo R.N.PHYSICAL ASSESSMENTGENERAL / NEURO / PSYCH: Alert. [...] Aguayo R.N. 3 Clinical Report - Nurses [facility] Emergency Department [address] [place] [address] Phone #: ext- [phone] 11/12/2019 20:48 Patient: [...] R.N.Patient transported to CT by wheelchair with retail pharmacy technician. --22:38 11/12/19 Munir Aguayo R.N.( Pt c/o [...] IV flushed 4 Clinical Report - Nurses [facility] Emergency Department [address] [place] [address] Phone #: ext- [phone] 11/12/2019 20:48 [id number] Sex[facility] F : 1990 Age: 29y thoroughly. [...] Patient verbalized understanding. Written instructions provided in Chadian. The patient was discharged by the physician. She was discharged home. She left ambulatory and via private vehicle. Patient driving. --00:19 11/13/19 Munir Aguayo R.N. ( Pt to be d/c'd with normal cat scan). --00:22 11/13/19 Munir Aguayo R.N.Locked/Released at 11/13/2019 00:27 by Munir Aguayo R.N. Name Value Range Interpretation Code Description Data Michelle rce(s) Supporting Document(s) ID Date Data Source [id number] 11/12/2019 08:51:00 PM EST [facility] 1 Clinical Report - Physicians/Mid Levels [facility] Emergency Department [address] [place] [address] Phone #: ext- [phone] 11/12/2019 20:48 Patient: [...] bedtime. 2 Clinical Report - Physicians/Mid Levels [facility] Emergency Department [address] [place] [address] Phone #: ext- [phone] 11/12/2019 20:48 Patient: [...] CT ABD PELVIS W/ IV ONLY [facility] ORDERING PHYSICIAN: Ryan Webster PATIENT HISTORY: ACTUAL DOSE 865.8 mGy*cm abdominal pain isovue 370 75cc [id number] Jun 2022 was given Patient hx hysterectomy. Verification of 2 patient identifiers performed. Time Out performed. type and amount of contrast used, correct body part and side all verified prior to examination. 3 Clinical Report - Physicians/Mid Levels [facility] Emergency Department [address] [place] [address] Phone #: ext- [phone] 11/12/2019 20:48 Patient: DAKOTA RAYMUNDO Sex: F : 1990 Age: 29y Exam has been sent to [facility] - If further information is needed, the number [phone]. Report will be faxed to ED and/or Xray. (Hx) / SAGITTAL (DICOM Hx)CT Abdomen/PelvisHistory:ACTUAL DOSE 865.8 mGy*cm abdominal pain isovue 370 75cc [id number] Jun 2022 was given Patient hxhysterectomy. Verification of 2 patient identifiers performed. Time Out performed. type and amount ofcontrast used, correct body part and side all verified prior to examination. [facility] - If further information is needed, the number is . Reportwill be faxed to ED and/or Xray. (Hx) / SAGITTAL (DICOM Hx)Technique:CT ABD PELVIS W/ IV ONLYDose length product (mGy-cm): Not providedReformations: OtherContrast: With; isovue 370 75cc [id number] Junomparison:CT - CT ABD PELVIS W/ IV [...] 13, 2019 12:17:50 AM EST by:Vik Woods, [place] [employer]. Abdominal CT performed with IV contrast. The study was 4 Clinical Report - Physicians/Mid Levels [facility] Emergency Department [address] [place] [address] Phone #: ext- [phone] 11/12/2019 20:48 Patient: DAKOTA RAYMUNDO Sex: F : 1990 Age: 29yinterpreted by the radiologist.Laboratory Tests: Laboratory tests have been ordered, with results reviewed and considered in themedical decision making process.CT Abd PEL W/ IV Contrast Only: (CASSIE: 11/12/2019 22:03) ( MsgRcvd 11/13/2019 00:18) Finalresults Exam CT ABD //T// PELVIS W/ IV ONLY [facility] [address] [place] [address] ---------NAME--------- NUMBER SEX AGE ADMIT DISC. XRAY# F/C TYPE DEONNA Colbert [id number] F 29 11/12/19 [id number] X6B E/R DATE OF : 1990 M/R# [id number] #: [id number] TR-08 LOCATION: EMERGENCY DEPT TRANSCRIBED: 11/13/[address] ABD //T// PELVIS W/ IV ONLY [id number] COMPLETED:11/12/19 23:12 DLA [id number] Reason(s): ABDMINAL PAIN, PANCREATITIS PHYSICIAN: ELEANOR GENAO R A D I O L O G Y R E P O R T PATIENT HISTORY: ACTUAL DOSE 865.8 mGy*cm abdominal pain isovue 370 75cc [id number] Jun 2022 was given Patient hx hysterectomy. Verification of 2 patient identifiers performed. Time Out performed. type and amount of contrast used, correct body part and side all verified prior to examination. [facility] - If further information is needed, the number is . Report will be faxed to ED and/or Xray. / SAGITTAL (DICOM Hx) CT Abdomen/Pelvis History: ACTUAL DOSE 865.8 mGy*cm abdominal pain isovue 370 75cc [id number] Jun 2022 was given Patient hx hysterectomy. Verification of 2 patient identifiers performed. Time Out performed. type and amount of contrast used, correct body part and side all verified prior to examination. Exam has been sent to [employer] [facility] - If further information is needed, the number is . Report will be faxed to ED and/or Xray. (Hx) / SAGITTAL (DICOM Hx) Technique: CT ABD //T// PELVIS W/ IV ONLY Dose length product (mGy-cm): Not provided Reformations: Other Contrast: With; isovue 370 75cc [id number] Jun 2022 Comparison: CT - CT ABD [...] lesion. 5 Clinical Report - Physicians/Mid Levels [facility] Emergency Department [address] [place] [address] Phone #: ext- [phone] 11/12/2019 20:48 Patient: ADKOTA RAYMUNDO Sex: F : 1990 Age: 29y [...] INDICATED 6 Clinical Report - Physicians/Mid Levels [facility] Emergency Department [address] [place] [address] Phone #: ext- [phone] 11/12/2019 20:48 Patient: [...] Care: 21:16 11/12/19. Data Detail Level: [employer] Extended View 7 Clinical Report - Physicians/Mid Levels [facility] Emergency Department [address] [place] [address] Phone #: ext- [phone] 11/12/2019 20:48 Patient: [...] was requested by: Ryan Webster Reference #: [id number] PrescriptionsPatient Name: Dakota Raymundo Date: 1990Address: [address] [place] [address] Sex: FemaleRx Written Rx Dispensed Drug Quantity Days Supply Prescriber Name09/30/2019 09/30/2019 hydrocodone-acetaminophen 5-300 mg tablet 6 2 Ryan Webster MDOthers' PrescriptionsPatient Name: Dakota Raymundo Date: 1990Address: [address] [place] [address] Sex: FemaleRx Written Rx Dispensed Drug Quantity [...] GE Sx's; will treatand repeat workup, then idqhhjeg20:04 11/12/19. workup all in and reviewed, lipase is high compared to 11-10-19, will repeat CTAP w IV, 8 Clinical Report - Physicians/Mid Levels [facility] Emergency Department [address] [place] [address] Phone #: ext- [phone] 11/12/2019 20:48 Patient: DAKOTA RAYMUNDO Sex: F [...] tablet. 9 Clinical Report - Physicians/Mid Levels [facility] Emergency Department [address] [place] [address] Phone #: guw- [phone] 11/12/2019 20:48 Patient: DAKOTA RAYMUNDO Sex: F : 1990 Age: 29y Refills: 1. Substitution permitted. [facility] [place] [address]. . Zofran 4 mg tablet Take 1 tablet four times a day as needed for 4 days -- Dispense 16 tablet. Refills: 0. Substitution permitted. [facility] [place] [address]. . Follow-up: Return to the emergency department [...] rce(s) Supporting Document(s) ID Date Data Source [id number] 11/13/2019 12:17:[address] [place] [address] ---------NAME--------- NUMBER SEX AGE ADMIT DISC. XRAY# F/C TYPE RAYMUNDO DAKOTA L [id number] F 29 11/12/19 [id number] X6B E/R DATE OF : 1990 M/R# [id number] PH#: [phone] TR-08 LOCATION: EMERGENCY DEPT TRANSCRIBED: 11/13/[address] ABD //T// PELVIS W/ IV ONLY [id number] COMPLETED:11/12/19 23:12 DLA [id number] Reason(s): ABDMINAL PAIN, PANCREATITIS PHYSICIAN: ELEANOR GENAO == R A D I O L O G Y R E P O R T PATIENT HISTORY:ACTUAL DOSE 865.8 mGy*cm abdominal pain isovue 370 75cc [id number] Jun 2022 wasgivenPatient hx hysterectomy. Verification of 2 patient identifiers performed.Time Out performed. type and amount of contrast used, correct body part and sideall verified prior to examination. Exam has been sent to [facility] - If further informationis needed, the number is . Report will be faxed to ED and/orXray. / SAGITTAL (DICOM Hx)CT Abdomen/PelvisHistory:ACTUAL DOSE 865.8 mGy*cm abdominal pain isovue 370 75cc [id number] Jun 2022 wasgiven Patient hx hysterectomy. Verification of 2 patient identifiers performed.Time Out performed. type and amount of contrast used, correct body part and sideall verified prior to examination. [facility] If further information is needed, the number is .Report will be faxed to ED and/or Xray. (Hx) / SAGITTAL (DICOM Hx)Technique:CT ABD //T// PELVIS W/ IV ONLYDose length product (mGy-cm): Not providedReformations: OtherContrast: With; isovue 370 75cc [id number] Junomparison: CT - CT ABD //T// PELVIS [...] rce(s) Supporting Document(s) ID Date Data Source [id number] 11/12/2019 09:59:00 PM [facility] Name Value Range Interpretation Code Description Data Michelle rce(s) Supporting Document(s) Lipase [Enzymatic activity/volume] in Serum or Plasma 360 U/L 13 - 60 H [facility] ID Date Data Source [id number] 11/12/2019 09:53:00 PM [facility] Name Value Range Interpretation Code Description Data Michelle rce(s) Supporting Document(s) C reactive protein [Mass/volume] in Serum or Plasma by High sensitivity method 1.40 MG/L 1.00 - 3.00 [facility] CDC/S HS-CRP CUT-OFF: RELATIVE RISK: <1.0 mg/L Low 1.0 - 3.0 mg/L Average >3.0 mg/L High Optimally, the average of HS-CRP results repeated two weeks apart should be used for risk assessment. ID Date Data Source [id number] 11/12/2019 09:53:00 PM [facility] Name Value Range Interpretation Code Description Data Michelle rce(s) Supporting Document(s) COMPREHENSIVE METABOLIC PANEL [facility] COMPREHENSIVE METABOLIC PANEL Sodium [Moles/volume] in Serum or Plasma 141 mEq/L 134 - 153 [facility] Potassium [Moles/volume] in Serum or Plasma 4.9 mEq/L 3.6 - 5.0 [facility] Chloride [Moles/volume] in Serum or Plasma 105 mEq/L 98 - 107 [facility] Carbon dioxide, total [Moles/volume] in Serum or Plasma 31 MEQ/L 22 - 30 H [facility] Glucose [Mass/volume] in Serum or Plasma 99 MG/DL 65 - 110 [facility] BUN 10 MG[facility]DL 7 - [facility] Creatinine [Mass/volume] in Serum or Plasma 0.7 MG/DL 0.7 - 1.5 [facility] BUN/CREAT 14 8 - 27 [facility] al Protein [Mass/volume] in Serum or Plasma 6.5 G/DL 6.3 - 8.2 [facility] Albumin [Mass/volume] in Serum or Plasma 4.0 G/DL 3.9 - 5.0 [facility] Globulin [Mass/volume] in Serum by calculation 2.5 GM/DL 2.4 - 3.2 [facility] A/G RATIO 1.6 0.8 - 2.0 [facility] Calcium [Mass/volume] in Serum or Plasma 9.7 MG/DL 8.4 - 10.2 [facility] Bilirubin.total [Mass/volume] in Serum or Plasma 0.7 MG/DL 0.2 - 1.3 [facility] Alkaline phosphatase [Enzymatic activity/volume] in Serum or Plasma 90 U/L 38 - 126 [facility] Aspartate aminotransferase [Enzymatic activity/volume] in Serum or Plasma 19 U/L 5 - 40 [facility] Alanine aminotransferase [Enzymatic activity/volume] in Seru m or Plasma 11 U/L 7 - 56 [facility] Anion gap 3 in Serum or Plasma 5.0 mmol/L 8.0 - 16.0 L [facility] AGE 29 yrs [facility] NON-AA GFR >60 mL/min [facility] ital AFR AMER GFR >60 mL/min [facility] Ho spital Male GFR In terprentation [...] >32 mL/min Normal ID Date Data Source [id number] 11/12/2019 09:33:00 PM EST [facility] Name Value Range Interpretation Code Description Data Michelle rce(s) Supporting Document(s) Lactate [Moles/volume] in Serum or Plasma 1.1 MMOL/L 0.2 - 2.2 [facility] ID Date Data Source [id number] 11/12/2019 09:32:00 PM EST [facility] Name Value Range Interpretation Code Description Data Michelle rce(s) Supporting Document(s) CBC W/AUTOMATED DIFF [facility] COMPLETE BLOOD COUNT Leukocytes [#/volume] in Blood by Automated count 6.5 10^3/uL 4.2 - 1 1.0 [facility] Erythrocytes [#/volume] in Blood by Automated count 4.18 10^6/uL 4. 20 - 5.40 L [facility] Hemoglobin [Mass/volume] in Blood 12.0 g/dL 12.0 - 16.0 [facility] Hematocrit [Volume Fraction] of Blood by Automated count 37.7 % 3 7.0 - 47.0 [facility] Erythrocyte mean corpuscular volume [Entitic volume] by Auto mated count 90.2 fL 81.0 - 101 [facility] [facility] Erythrocyte mean corpuscular hemoglobin [Entitic mass] by Automated count 28.7 pg 27.0 - 34.0 [facility] Erythrocyte mean corpuscular hemoglobin concentration [Mass/volume] by Automated count 31.8 g/dL 31.0 - 36.0 [facility] Erythrocyte distribution width [Ratio] by Automated count 13.4 % 11.5 - 14.5 [facility] Platelets [#/volume] in Blood by Automated count 257 10^3/uL 150 - 45 0 [facility] Platelet mean volume [Entitic volume] in Blood by Automated count 10.0 fL 7.4 - 10.4 [facility] Neutrophils/100 leukocytes in Blood by Automated count 57.6 % 37. 0 - 80.0 [facility] Lymphocytes/100 leukocytes in Blood by Manual count 33.5 % 25.0 - 40.0 [facility] Monocytes/100 leukocytes in Blood by Automated count 4.7 % 3.0 - 8.0 [facility] Eosinophils/100 leukocytes in Blood by Automated count 3.2 % 0.0 - 7.0 [facility] Basophils/100 leukocytes in Blood by Automated count 0.8 % 0.0 - 2.5 [facility] %IG 0.2 % 0.0 - 0.0 H [facility] Hospit al %NRBC 0.0 % 0.0 - 0.0 [facility] al Neutrophils [#/volume] in Blood by Automated count 3.77 10^3/uL 2.00 - 6.90 [facility] Lymphocytes [#/volume] in Blood by Automated count 2.19 10^3/uL 0.60 - 3.40 [facility] Monocytes [#/volume] in Blood by Automated count 0.31 10^3/uL 0.00 - 0.90 [facility] Eosinophils [#/volume] in Blood by Automated count 0.21 10^3/uL 0.00 - 0.70 [facility] Basophils [#/volume] in Blood by Automated count 0.05 10^3/uL 0.00 - 0.20 [facility] #IG 0.01 10^3/uL 0.00 - 0.10 [facility] H ospital #NRBC 0.00 10^3/uL 0.00 - 0.00 [facility] ospital MANUAL DIFF NOT INDICATED [facility] RBC MORPH NOT INDICATED [facility] spital ID Date Data Source [id number] 11/12/2019 09:29:00 PM EST [facility] Name Value Range Interpretation Code Description Data Michelle rce(s) Supporting Document(s) [facility] S[facility] R [facility] al COLOR yellow NORMAL: Yellow [facility] ospital CLARITY clear NORMAL: Clear [facility] spital Specific gravity of Urine by Test strip 1.010 1.001 - 1.030 [facility] pH 6.5 5 - 9 [facility] al Glucose [Mass/volume] in Urine by Test strip NORM [facility] Bilirubin.total [Presence] in Urine by Test strip NEG NORMAL: Negative [facility] Ketones [Presence] in Urine by Test strip NEG NORMAL: Negative [facility] Protein [Mass/volume] in Urine by Test strip NEG [facility]ORMAL[facility] Nitrite [Presence] in Urine by Test strip NEG NORMAL: Negative [facility] BLOOD NEG NORMAL: Negative [facility] Leukocyte esterase [Presence] in Urine by Test strip 25 KYLEIGH L: Negative [facility] Urobilinogen [Mass/volume] in Urine by Test strip NOR less jeyson n 1.0 mg/dL [facility] MICROSCOPIC See Below [facility] Hosp ital WBC 1 - 3 NORMAL: NONE SEEN [facility] EPITHELIAL FEW NORMAL: NONE SEEN [facility] ID Date Data Source [id number] 11/10/2019 06:10:00 PM EST [facility] 1 OrderSheet [facility] Emergency Department [address] [place] [address] Phone #: ext- [phone] 11/10/2019 17:45 Patient: [...] 11/10/2019 18:53 BurnhamCatch) Kyle Avila ED P.A.-C; [id number] Acid STAT 18:51 11/10/2019 18:53 Sunitha Castillo [...] 100 mL/hr Yuli Castillo RN 2 OrderSheet [facility] Emergency Department [address] [place] [address] Phone #: ext- [phone] 11/10/2019 17:45 Patient: [...] rce(s) Supporting Document(s) ID Date Data Source [id number] 11/10/2019 06:10:00 PM EST [facility] 1 Medication Reconciliation Report [facility] Emergency Department [address] [place] [address] Phone #: ext- [phone] 11/10/2019 17:45 Patient: DAKOTA RAYMUNDO Sex: F : 1990 Age: 29yWeight: 83.4 kgHeight/Length: 61 in.BMI: 34.8ALLERGIES: None, ToradolThe patient's Home Medications are listed below:THE FOLLOWING MEDICATIONS NEED TO BE RECONCILED: Ibuprofen Oral (600 mg) 1 tablet, 3x a day, last dose: [id number] Safphris 20mg traZODone HCl Oral 200 [...] -- Dispense 6 tablet. Refills: 0.Substitution permitted.Ph[facility]acy [id number] - [address] [place] [address]. . 2 Medication Reconciliation Report [facility] Emergency Department [address] [place] [address] Phone #: ext- [phone] 11/10/2019 17:45 Patient: DAKOTA RAYMUNDO Sex: F : 1990 Age: 29ygabapentin 100 mg capsule Take 1 capsule three times a day for 2 days -- Dispense 6 capsule. Refills:0. Substitution permitted.[facility] [address] - [address] [place] [address]. FaxNumb er: . -- Yuli Jade P.A.-C Name Value Range Interpretation Code Description Data Michelle rce(s) Supporting Document(s) ID Date Data Source [id number] 11/10/2019 06:10:00 PM EST [facility] 1 Medication Administration Record [facility] Emergency Department [address] [place] [address] Phone #: ext- [phone] 11/10/2019 17:45 Patient: DAKOTA RAYMUNDO Sex: F : 1990 Age: 29yWeight: 83.4 kgHeight/Length: 61 inBMI: 34.8ALLERGIES: None, Toradol Date/Time Medication Administered Medication OrderedStart NS [IV] NS IV : Bolus 500 mL, then 25762:42 11/10/2019 Dose: IV Fluids mL/hrSunitha Castillo RN [...] rce(s) Supporting Document(s) ID Date Data Source [id number] 11/10/2019 06:10:00 PM EST [facility] 1 General Instructions [facility] Emergency Department [address] [place] [address] Phone #: ext- [phone] 11/10/2019 17:45 Patient: [...] days -- Dispense 6 tablet. Refills: 0.Substitution permitted.[facility] - [address] [facility] ; [place] [address]. .gabapentin 100 mg capsule Take 1 capsule three times a day for 2 days -- Dispense 6 capsule. Refills:0. Substitution permitted.[facility] [address] - [address] [place] [address]. .Follow-up:Return to the emergency department as needed. Follow up with your healthcare provider Recommend tof/u with PCP for furhter eval of CT findings. in three days if not better. Call for an appointment. Follow upwith a orthodontist assistant- as recommended by your health care provider. Reason for referral: evaluationand treatment.Understanding of the discharge instructions verbalized by patient. 2 General Instructions [facility] Emergency Department [address] [place] [address] Phone #: ext- [phone] 11/10/2019 17:45 Patient: [...] may also be needed. 3 General Instructions [facility] Emergency Department [address] [place] [address] Phone #: ext- [phone] 11/10/2019 17:45 Patient: DAKOTA RAYMUNDO Sex: F : 1990 Age: 29yHome [facility] healthcare provider may prescribe medicine for pain, [...] begin to improve in thenext 24 hours.Call [phone] if any of these occur: Trouble breathing Confusion 4 General Instructions [facility] Emergency Department [address] [place] [address] Phone #: ext- [phone] 11/10/2019 17:45 Patient: [...] or water and you are getting dehydrated [phone] [employer] [place] [address], [place] [address]. All rights reserved. This information is not intended as asubstitute for professional medical care. Always follow your healthcare professional's instructions.Noninfectious Gastroenteritis (Adult) 5 General Instructions [facility] Emergency Department [address] [place] [address] Phone #: ext- [phone] 11/10/2019 17:45 Patient: [...] spread of the illness 6 General Instructions [facility] Emergency Department [address] [place] [address] Phone #: ext- [phone] 11/10/2019 17:45 Patient: [...] until you feel better. 7 General Instructions [facility] Emergency Department [address] [place] [address] Phone #: ext- [phone] 11/10/2019 17:45 Patient: DAKOTA RAYMUNDO Sex: F : 1990 Age: 29yFood preparation If you have diarrhea, you should not prepare food for others. When you prepare food for yourself, wash your hands before and after. Wash your hands after using cutting boards, countertops, and knives that have been in contact with raw food. Keep uncooked meats away from cooked and [id number] foods.Follow-up careFollow up with your healthcare provider if you are not improving over the next 2 to 3 days, or asadvised. If a stool (diarrhea) sample was taken, call for the results as directed.Call [phone] if any of these occur: Trouble breathing [...] output Weakness, dizziness Drowsiness 8 General Instructions [facility] Emergency Department [address] [place] [address] Phone #: ext- [phone] 11/10/2019 17:45 Patient: DAKOTA RAYMUNDO Sex: F : 1990 Age: 29y Fever of 100.4F (38.0C) or higher, or as directed by your healthcare provider Sterling joaquin [phone] [employer]. [address] [place] [address], [place] [address]. All rights reserved. This informat ion is [...] rce(s) Supporting Document(s) ID Date Data Source [id number] 11/10/2019 06:10:00 PM EST [facility] 1 Clinical Report - Nurses [facility] Emergency Department [address] [place] [address] Phone #: ext- [phone] 11/10/2019 17:45 Patient: [...] abdominal pain. 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 (1600).SEPSIS SCREEN: Negative (no infection suspected/documented). --17:53 11/10/19 Lucretia Barnes R.N.17:49 11/10/19. BP: 113/74. MAP: 87. HR: 91. RR: 20. O2 saturation: 95%. Temp: 98.6 F. Pain level now:06/06. --17:53 11/10/19 Lucretia Barnes R.N.Weight: 83.4 kg stated. Height/Length: 61 inches Per Patient. BMI: 34.8. --17:48 11/10/19 Lucretia Barnes R.N.MedicationsIbuprofen Oral (Tablet 600 mg) 1 tablet, 3x a day, last dose [id number] 0800. Safphris 20mg. traZODone HCl Oral 200 mg, at bedtime. --18:12 11/10/19 Lucretia Barnes R.N.AllergiesNone. --17:50 11/10/19 Lucretia Barnes R.N.Toradol.(nausea, vomiting) --18:12 11/10/19 Lucretia Barnes R.N.PROBLEMS:Contusion.Bipolar Disorder.Abdominal Pain.Back Pain.Dental Caries.Insomnia.Ovarian Cyst.Endometriosis.Depression.Fall. --18:12 11/10/19 Lucretia Barnes R.N. 2 Clinical Report - Nurses [facility] Emergency Department [address] [place] [address] Phone #: ext- [phone] 11/10/2019 17:45 [id number] Sex[facility] F : 1990 Age: 29y ADDITIONAL [...] treatment room. --17:53 11/10/19 Lucretia Barnes R.N.PHYSICAL BMGIROLHXM69:55 11/10/19. Ambulatory to room.GENERAL / NEURO / PSYCH: Alert. Oriented X 4. Appears in no acute distress. 3 Clinical Report - Nurses [facility] Emergency Department [address] [place] [address] Phone #: ext- [phone] 11/10/2019 17:45 [id number] Sex[facility] F : 1990 Age: 29y HEENT: [...] and precautions. Verbalizes understanding. --19:03 11/10/19 Sunitha aCstillo RN 18:55 11/10/19. Reassessment after medication administered. [...] Pandya R.N. 4 Clinical Report - Nurses [facility] Emergency Department [address] [place] [address] Phone #: ext- [phone] 11/10/2019 17:45 ----- [...] The patient was discharged by the physician family and divorce legal assistant. 5 Clinical Report - Nurses [facility] Emergency Department [address] [place] [address] Phone #: ext- [phone] 11/10/2019 17:45 --------- Patient: DAKOTA RAYMUNDO Sex: [...] rce(s) Supporting Document(s) ID Date Data Source [id number] 11/10/2019 06:10:00 PM EST [facility] 1 Clinical Report - Physicians/Mid Levels [facility] Emergency Department [address] [place] [address] Phone #: ext- [phone] 11/10/2019 17:45 Patient: DAKOTA RAYMUNDO [facility]#: [id number] Sex: F : 1990 Age: 29y Time [...] Surgeries: 2 Clinical Report - Physicians/Mid Levels [facility] Emergency Department [address] [place] [address] Phone #: ext- [phone] 11/10/2019 17:45 Patient: DAKOTA RAYMUNDON: [id number] [facility]#: [id number] Sex: F : 1990 Age: 29y Bowel Surgery. Colonoscopy. Colostomy. Hysterectomy. Tonsillectomy. Total colectomy. Tubal Ligation. Medications: Ibuprofen Oral (Tablet 600 mg) 1 tablet, 3x a day, last dose [id number]. Safphris 20mg. traZODone HCl Oral 200 mg, at bedtime. Allergies: None. Toradol.(nausea, vomiting).SOCIAL HISTORYNever smoker. History of drug use: marijuana. No alcohol use.ADDITIONAL NOTESThe [facility] have been reviewed.PHYSICAL EXAMVital Signs: [...] EKG 3 Clinical Report - Physicians/Mid Levels [facility] Emergency Department [address] [place] [address] Phone #: [phone]- [phone] 11/10/2019 17:45 Patient: DAKOTA RAYMUNDO Sex: F [...] Male GFR Interprentation 20-49 yrs >60 mL/min [id number] yrs >56 mL/min Normal 60- 69 yrs >49 mL/min Normal 70-79yrs>42 mL/min Normal 80 and above >35 mL/min Normal Female GFRInterpretation 20-39 yrs >60 mL/min Normal 40-49 yrs >58 mL/minNormal 50-59 yrs >51 mL/min Normal 60-69 yrs >45 mL/min [id number] yrs >39 mL/min Normal 80 and above >32 mL/min Normal 4 Clinical Report - Physicians/Mid Levels [facility] Emergency Department [address] [place] [address] Phone #: ext- [phone] 11/10/2019 17:45 Patient: DAKOTA RAYMUNDO Sex: F : 1990 Age: 29y Lipase: (CASSIE: 11/10/2019 19:05) ( [facility] 11/10/2019 20:29) Final results Test Result Flag [...] Indicate Lactic Acid: (CASSIE: 11/10/2019 19:05) ( [facility] 11/10/2019 19:34) Final results Test Result Flag [...] Thrombosis, Pulmonary Embolus, Tissue heart valves, Acute IA, Atrial Fibrillation, Valvular heart disease and recurrent [...] surgery. 5 Clinical Report - Physicians/Mid Levels [facility] Emergency Department [address] [place] [address] Phone #: ext- [phone] 11/10/2019 17:45 Patient: DAKOTA RAYMUNDO Sex: F [...] tablet. Refills: 0. Substitution permitted. Pharmacy - [facility] [address] [place] [address]. . 6 Clinical Report - Physicians/Mid Levels [facility] Emergency Department [address] [place] [address] Phone #: ext- [phone] 11/10/2019 17:45 Patient: DAKOTA RAYMUNDO Sex: F : 1990 Age: 29y gabapentin 100 mg capsule Take 1 capsule three times a day for 2 days -- Dispense 6 capsule. Refills: 0. Substitution permitted. Pharmacy - [facility] [address] - [address] [facility] ; [place] [address]. . Follow-up: Return to the emergency department as needed. Follow up with your healthcare provider Recommend to f/u with PCP for furhter eval of CT findings. in three days if not better. Call for an appointment. Follow up with a orthodontist assistant- as recommended by your health care provider. Reason for referral: evaluation and treatment. Understanding of the discharge instructions verbalized by patient.(Electronically signed by Yuli Jade P.A.-C 11/12/2019 01:09) Name Value Range Interpretation Code Description Data Michelle rce(s) Supporting Document(s) ID Date Data Source [id number] 11/10/2019 10:42:00 [place] [address] ---------NAME--------- NUMBER SEX AGE ADMIT DISC. XRAY# F/C TYPE DEONNA Colbert [id number] F 29 11/10/19 121025 X6B E/R DATE OF : 1990 M/R# [id number] #: [id number] TR-1A LOCATION: EMERGENCY DEPT TRANSCRIBED: 11/10/19 22:[address] ABD //T// PELVIS W/ IV ONLY [id number] COMPLETED:11/10/19 21:21 KJE [id number] Reason(s): Abdominal Pain PHYSICIAN: PREM JADE CH = R A D I O L O G Y R E P O R T PATIENT HISTORY:Abdominal Pain ACC DLP- 962.7mGy*cmPatient hx of hysterectomy. Time Out performed. Correct patient with 2identifiers, Isovue 370 and 75mL of contrast used, Lot [id number], Exp 07/19,correct body part and side all verified prior to examination. Exam has been sent to [facility] - If further informationis needed, the number is . Report will be faxed to ED and/or Xray.kje / SAGITTAL (DICOM Hx)CT Abdomen/PelvisHistory:Abdominal Pain ACC DLP- 962.7mGy*cm Patient hx of hysterectomy. Time Outperformed. Correct patient with 2 identifiers, Isovue 370 and 75mL of contrastused, Lot [id number], Exp 07/19, correct body part and side all verified prior toexamination. Exam has been sent to [facility] - If furtherinformation is needed, the number is . Report will be faxed to EDand/or Xray. kje (Hx) / SAGITTAL (DICOM Hx)Technique:CT ABD //T// PELVIS W/ IV ONLYDose length product (mGy-cm): Not providedReformations: OtherContrast: With; Isovue 370 and 75mL of contrast used, Lot [id number], Exp 07/19Comparison: CTFindings:There are normal appearing stomach, [...] reconstructivetechniques.Electronically Signed By:Willie Son M.D. , RadiologistDate/Time: 11/10/19 22:42 Name Value Range Interpretation Code Description Data Michelle rce(s) Supporting Document(s) ID Date Data Source [id number] 11/10/2019 08:29:00 PM [facility] Name Value Range Interpretation Code Description Data Michelle rce(s) Supporting Document(s) Lipase [Enzymatic activity/volume] in Serum or Plasma 53 U/L 13 - 60 [facility] ID Date Data Source [id number] 11/10/2019 08:29:00 PM [facility] Name Value Range Interpretation Code Description Data Michelle rce(s) Supporting Document(s) COMPREHENSIVE METABOLIC PANEL [facility] COMPREHENSIVE METABOLIC PANEL Sodium [Moles/volume] in Serum or Plasma 142 mEq/L 134 - 153 [facility] Potassium [Moles/volume] in Serum or Plasma 4.4 mEq/L 3.6 - 5.0 [facility] Chloride [Moles/volume] in Serum or Plasma 106 mEq/L 98 - 107 [facility] Carbon dioxide, total [Moles/volume] in Serum or Plasma 23 MEQ/L 22 - 30 [facility] Glucose [Mass/volume] in Serum or Plasma 85 MG/DL 65 - 110 [facility] BUN 10 MG/DL 7 - 21 [facility] Creatinine [Mass/volume] in Serum or Plasma 0.7 MG/DL 0.7 - 1.5 [facility] BUN/CREAT 14 8 - 27 [facility] Protein [Mass/volume] in Serum or Plasma 5.8 G/DL 6.3 - 8.2 L [facility] Albumin [Mass/volume] in Serum or Plasma 3.9 G/DL 3.9 - 5.0 [facility] Globulin [Mass/volume] in Serum by calculation 1.9 GM/DL 2.4 - 3.2 L [facility] A/G RATIO 2.1 0.8 - 2.0 H [facility] al Calcium [Mass/volume] in Serum or Plasma 9.5 MG/DL 8.4 - 10.2 [facility] Bilirubin.total [Mass/volume] in Serum or Plasma 0.7 MG/DL 0.2 - 1.3 [facility] Alkaline phosphatase [Enzymatic activity/volume] in Serum or Plasma 84 U/L 38 - 126 [facility] Aspartate aminotransferase [Enzymatic activity/volume] in Serum or Plasma 14 U/L 5 - 40 [facility] Alanine aminotransferase [Enzymatic activity/volume] in Seru m or Plasma 9 U/L 7 - 56 [facility] Anion gap 3 in Serum or Plasma 13.0 mmol/L 8.0 - 16.0 [facility] AGE 29 yrs [facility] GFR >60 mL/min [facility] ital AFR AMER GFR >60 mL/min [facility] Ho spital Male GFR In terprentation [...] >32 mL/min Normal ID Date Data Source [id number] 11/10/2019 07:38:00 PM EST [facility] Name Value Range Interpretation Code Description Data Michelle rce(s) Supporting Document(s) Prothrombin time (PT) 12.1 SECONDS 11.0 - 15.5 [facility] INR in Platelet poor plasma by Coagulation assay 0.89 0.93 - 1. 23 L [facility] \\BLDo\\INR INTERPRETATION\\BLDx\\ Therapeutic range for Coumadin and related oral anticoagulants. - International Normalized Ratio (INR): 2.0 - 3.0 for Venous Thrombosis, Pulmonary Embolus, Tissue heart valves, Acute IA, Atrial Fibrillation, Valvular heart disease and recurrent Systemic Embolism. -International Normalized Ratio (INR): 2.5 - 3.5 for Mechanical Prosthetic valve. ID Date Data Source [id number] 11/10/2019 07:33:00 PM EST [facility] Name Value Range Interpretation Code Description Data Michelle rce(s) Supporting Document(s) Lactate [Moles/volume] in Serum or Plasma 1.8 MMOL/L 0.2 - 2.2 [facility] ID Date Data Source [id number] 11/10/2019 07:32:00 PM EST [facility] Name Value Range Interpretation Code Description Data Michelle rce(s) Supporting Document(s) CBC W/AUTOMATED DIFF [facility] COMPLETE BLOOD COUNT Leukocytes [#/volume] in Blood by Automated count 6.2 10^3/uL 4.2 - 1 1.0 [facility] Erythrocytes [#/volume] in Blood by Automated count 4.13 10^6/uL 4. 20 - 5.40 L [facility] Hemoglobin [Mass/volume] in Blood 12.0 g/dL 12.0 - 16.0 [facility] Hematocrit [Volume Fraction] of Blood by Automated count 37.0 % 3 7.0 - 47.0 [facility] Erythrocyte mean corpuscular volume [Entitic volume] by Auto mated count 89.6 fL 81.0 - 101 [facility] Erythrocyte mean corpuscular hemoglobin [Entitic mass] by Automated count 29.1 pg 27.0 - 34.0 [facility] Erythrocyte mean corpuscular hemoglobin concentration [Mass/volume] by Automated count 32.4 g/dL 31.0 - 36.0 [facility] Erythrocyte distribution width [Ratio] by Automated count 13.3 % 11.5 - 14.5 [facility] Platelets [#/volume] in Blood by Automated count 251 10^3/uL 150 - 45 0 [facility] Platelet mean volume [Entitic volume] in Blood by Automated count 9.8 fL 7.4 - 10.4 [facility] Neutrophils/100 leukocytes in Blood by Automated count 55.4 % 37. 0 - 80.0 [facility] Lymphocytes/100 leukocytes in Blood by Manual count 35.3 % 25.0 - 40.0 [facility] Monocytes/100 leukocytes in Blood by Automated count 5.5 % 3.0 - 8.0 [facility] Eosinophils/100 leukocytes in Blood by Automated count 2.7 % 0.0 - 7.0 [facility] Basophils/100 leukocytes in Blood by Automated count 0.8 % 0.0 - 2.5 [facility] %IG 0.3 % 0.0 - 0.0 H [facility] Hospit al %NRBC 0.0 % 0.0 - 0.0 [facility] al Neutrophils [#/volume] in Blood by Automated count 3.45 10^3/uL 2.00 - 6.90 [facility] Lymphocytes [#/volume] in Blood by Automated count 2.20 10^3/uL 0.60 - 3.40 [facility] Monocytes [#/volume] in Blood by Automated count 0.34 10^3/uL 0.00 - 0.90 [facility] Eosinophils [#/volume] in Blood by Automated count 0.17 10^3/uL 0.00 - 0.70 [facility] Basophils [#/volume] in Blood by Automated count 0.05 10^3/uL 0.00 - 0.20 [facility] #IG 0.02 10^3/uL 0.00 - 0.10 [facility] H ospital #NRBC 0.00 10^3/uL 0.00 - 0.00 [facility] ospital MANUAL DIFF NOT INDICATED [facility] RBC MORPH NOT INDICATED [facility] spital ID Date Data Source [id number] 11/10/2019 07:15:00 PM EST [facility] Name Value Range Interpretation Code Description Data Michelle rce(s) Supporting Document(s) URINALYSIS [facility] liz UR[facility]ALYSIS [facility]OURCE [facility] COL[facility] yellow NORMAL: Yellow [facility]spital CLARITY clear NORMAL: Clear [facility] Ho spital Specific gravity of Urine by Test strip 1.010 1.001 - 1.030 [facility] pH 6.5 5 - 9 [facility] Hospit al Glucose [Mass/volume] in Urine by Test strip NORM NORMAL: Negat [facility] Bilirubin.total [Presence] in Urine by Test strip NEG NORMAL: Negative [facility] Ketones [Presence] in Urine by Test strip NEG NORMAL: Negative [facility] Protein [Mass/volume] in Urine by Test strip NEG NORMAL: Negat [facility] Nitrite [Presence] in Urine by Test strip NEG NORMAL: Negative [facility] BLOOD NEG NORMAL: Negative [facility] Leukocyte esterase [Presence] in Urine by Test strip NEG KYLEIGH L: Negative [facility] Urobilinogen [Mass/volume] in Urine by Test strip NOR less jeyson n 1.0 mg/dL [facility] MICROSCOPIC Not Indicate [facility] Procedure Social History Code Duration Value Status Description Data Source(s ) Alcohol intake 06/07/2020 12:00:00 AM EDT Current drinker of al cohol (finding) completed Current drinker of alcohol (finding) [facility] Tobacco use and exposure 06/07/2020 12:00:00 AM EDT Never used co mpleted Never used [facility] Smoking 06/07/2020 12:00:00 AM EDT Former smoker completed Former smoker [facility] Vital Signs ID Date Data Source [id number] 06/08/2020 10:15:53 AM EDT [facility] Name Value Range Interpretation Code Description Data Source(s) WEIGHT RECORDED 174 lb 174 lb [facility] Body height Measured 61 in 61 in [facility] Patient Treatment Plan of Care Planned Activity Planned Date Details Description Data Source (s) Lurasidone Hydrochloride 40 MG Oral Tablet 06/08/2020 09:00:00 AM E DT [facility] 1 ML Ketorolac Tromethamine 30 MG/ML Cartridge 06/08/2020 02:00:00 AM [facility] Lurasidone Hydrochloride 20 MG Oral Tablet [Latuda] 05/20/20 12:00:00 AM [facility]
[2020-12-19] MEDS ORDERED: NS 1,000 ML IV ONE (07:45)
[2020-12-19] MEDS ORDERED: ONDANSETRON 4MG/2ML VIAL IV ONE (07:45)
[2020-12-19] MEDS ORDERED: MORPHINE 2 MG/ML 1ML VIAL (J2270) IV PRN (07:45)
[2020-12-19] MEDS ORDERED: ISOVUE-370 76% 100ML VIAL As Ordered ONE (08:00)
[2020-12-19 08:04] LABS: BASO % 0.8 % (0.0-1.0); EOS # 0.2 10^3/uL (0.0-0.5); EOS % 2.9 % (0.0-3.0); HEMATOCRIT 40.9 % (36.0-47.0); HEMOGLOBIN 12.9 g/dl (12.0-15.5); LYMPH # 1.9 10^3/uL (1.5-5.0); LYMPH % 36.7 % (24.0-44.0); MEAN CORPUSCULAR HEMOGLOBIN 28.9 pg (27.0-33.0); MEAN CORPUSCULAR HGB CONC 31.5 g/dl (32.0-36.5); MEAN CORPUSCULAR VOLUME 91.7 fl (80.0-96.0); MONO # 0.4 10^3/uL (0.0-0.8); MONO % 7.5 % (2.0-8.0); NEUTROPHILS # 2.7 10^3/uL (1.5-8.5); NEUTROPHILS % 51.9 % (36.0-66.0); PLATELET COUNT, AUTOMATED 216 10^3/uL (150-450); RED BLOOD COUNT 4.46 10^6/uL (4.00-5.40); WHITE BLOOD COUNT 5.2 10^3/uL (4.0-10.0)
[2020-12-19 08:18] LABS: INR 0.92; PROTHROMBIN TIME 12.6 SECONDS (12.5-14.3)
[2020-12-19 08:19] LABS: PARTIAL THROMBOPLASTIN TIME 29.3 SECONDS (24.2-38.5)
[2020-12-19 08:28] LABS: ALBUMIN 3.7 GM/DL (3.2-5.2); BILIRUBIN,DIRECT 0.1 MG/DL (0.0-0.2); BILIRUBIN,TOTAL 0.3 MG/DL (0.2-1.0); TOTAL PROTEIN 6.5 GM/DL (6.4-8.2)
--- NOTE | 2020-12-19 08:33 | REP ---
INDICATION: fall 2 d ago and severe ruq pain and right lower rib pain. COMPARISON: Comparison CT study of the chest is from June 06, 2020.. TECHNIQUE: Helical scanning is acquired following the intravenous injection of 100 mL of Isovue 370. 3 mm axial images re-formatted. Coronal and sagittal MPR images are generated. FINDINGS: There is good opacification of the pulmonary arterial tree and the thoracic aorta. No vascular abnormality is seen. There is no evidence hilar or mediastinal mass or adenopathy. No pleural or pericardial effusion is seen. Normal adrenal glands are seen. The visualized upper abdominal structures are unremarkable. There is no evidence of infiltrate, atelectasis or mass. There are 2 subcentimeter noncalcified pulmonary nodules in the right lung unchanged from the June 06, 2020 prior study. No other pulmonary nodule is seen. No rib fracture or other bony a lesion is seen. IMPRESSION: No active cardiopulmonary disease. Two stable small subcentimeter pulmonary nodules on the right unchanged from June 06, 2020. <Electronically signed by Yon Parker > 12/19/20 [id number]
--- NOTE | 2020-12-19 08:38 | REP ---
INDICATION: fall 2 d ago and severe ruq pain and right lower rib pain. Patient gives a history of total colectomy and tubal ligation. COMPARISON: Comparison CT abdomen pelvis September 15, 2020. Comparison study from August 06, 2017 is also reviewed.. TECHNIQUE: Helical scanning is acquired and 3 mm axial images re-formatted. Coronal and sagittal MPR images are generated. The CT contrast enhancement dose is 100 mL of intravenous Isovue 370. FINDINGS: Digital preliminary service line bus cleaner radiograph demonstrates tubal ligation clamps in the pelvis and a normal bowel gas pattern. The liver and the spleen are intact. There is a tiny accessory splenule. No evidence of hepatic or splenic hematoma. There is no evidence of hemoperitoneum or pneumoperitoneum. No abnormality is noted in the pancreas. Gallbladder is unremarkable. Kidneys enhance symmetrically and are morphologically intact. There is a small subcentimeter cyst in the lower pole of the left kidney. There is evidence of subtotal colectomy. Ileocolic anastomosis in the right lower quadrant with the sigmoid colon. No bowel mass or inflammatory changes seen. The uterus appears to be surgically absent. Tubal ligation clamps are noted in the cul-de-sac. No pelvic mass or adenopathy is seen. No abdominal wall defect is seen. Bone window settings show no evidence of fracture or bony destructive lesion. IMPRESSION: No acute traumatic abnormality. Status post subtotal colectomy and hysterectomy. Tubal ligation clamps visible in the pelvis. Otherwise negative. <Electronically signed by Yon Parker > 12/19/20 [id number]
[2020-12-19] MEDS ORDERED: MORPHINE 4 MG/ML 1ML VIAL/SYRINGE (J2270) IV ONE (09:00)
--- OUTSIDE RECORDS SUMMARY | 2020-12-19 09:27 | CCD ---
Author Author [facility] Organization [facility] Address Unknown Phone Unavailable Care Team Providers Care Massage Therapy Instructor Name Role Phone SYMENOW, G CHRISTOPHER PA [...] Luis LAGUNA MD Unavailable Unavailable Juan Luis ALGUNA MD Unavailable Unavailable Juan Luis LAGUNA MD [...] Luis LAGUNA MD Unavailable Unavailable Juan Luis LGAUNA MD Unavailable Unavailable Juan Luis LAGUNA MD [...] ALICIA PA Unavailable Unavailable Daria, A Minerva OPTICAL TECHNICIAN Unavailable Unavailable Daria, A Minerva OPTICAL TECHNICIAN Unavailable Unavailable Daria, A Minerva OPTICAL TECHNICIAN Unavailable Unavailable Daria, A Minerva OPTICAL TECHNICIAN Unavailable Unavailable Daria, A Minerva OPTICAL TECHNICIAN Unavailable Unavailable Daria, A Minerva OPTICAL TECHNICIAN Unavailable Unavailable Daria, A Minerva OPTICAL TECHNICIAN Unavailable Unavailable Daria, A Minerva OPTICAL TECHNICIAN Unavailable Unavailable Daria, A Minerva OPTICAL TECHNICIAN Unavailable Unavailable Daria, A Minerva OPTICAL TECHNICIAN Unavailable Unavailable Daria, A Minerva OPTICAL TECHNICIAN Unavailable Unavailable Daria, A Minerva OPTICAL TECHNICIAN Unavailable Unavailable Daria, A Minerva OPTICAL TECHNICIAN Unavailable Unavailable Daria, A Minerva OPTICAL TECHNICIAN Unavailable Unavailable Daria, A Minerva OPTICAL TECHNICIAN Unavailable Unavailable Daria, A Minerva OPTICAL TECHNICIAN Unavailable Unavailable Daria, A Minerva OPTICAL TECHNICIAN Unavailable Unavailable Daria, A Minerva OPTICAL TECHNICIAN Unavailable Unavailable Daria, A Minerva OPTICAL TECHNICIAN Unavailable Unavailable Daria, A Minerva OPTICAL TECHNICIAN Unavailable Unavailable Daria, A Minerva OPTICAL TECHNICIAN Unavailable Unavailable Daria, A Minerva OPTICAL TECHNICIAN Unavailable Unavailable Daria, A Minerva OPTICAL TECHNICIAN Unavailable Unavailable Daria, A Minerva OPTICAL TECHNICIAN Unavailable Unavailable Daria, A Minerva OPTICAL TECHNICIAN Unavailable Unavailable Daria, A Minerva OPTICAL TECHNICIAN Unavailable Unavailable Daria, A Minerva OPTICAL TECHNICIAN Unavailable Unavailable Daria, A Minerva OPTICAL TECHNICIAN Unavailable Unavailable Daria, A Minerva OPTICAL TECHNICIAN Unavailable Unavailable Daria, A Minerva OPTICAL TECHNICIAN Unavailable Unavailable Daria, A Minerva OPTICAL TECHNICIAN Unavailable Unavailable Daria, A Minerva OPTICAL TECHNICIAN Unavailable Unavailable Daria, A Minerva OPTICAL TECHNICIAN Unavailable Unavailable Daria, A Minerva OPTICAL TECHNICIAN Unavailable Unavailable Daria, A Minerva OPTICAL TECHNICIAN Unavailable Unavailable Daria, A Minerva OPTICAL TECHNICIAN Unavailable Unavailable Daria, A Minerva OPTICAL TECHNICIAN Unavailable Unavailable Daria, A Minerva OPTICAL TECHNICIAN Unavailable Unavailable Daria, A Minerva OPTICAL TECHNICIAN Unavailable Unavailable Daria, A Minerva OPTICAL TECHNICIAN Unavailable Unavailable Daria, A Minerva OPTICAL TECHNICIAN Unavailable Unavailable Daria, A Minerva OPTICAL TECHNICIAN Unavailable Unavailable Daria, A Minerva OPTICAL TECHNICIAN Unavailable Unavailable Daria, A Minerva OPTICAL TECHNICIAN Unavailable Unavailable TIANA, GENE CHAD PA Unavailable [...] Unavailable Unavailable MIRTHA BROWN MD Unavailable Unavailable Racine, Abbey RPA-C Unavailable Unavailable Racine, Abbey RPA-C Unavailable Unavailable Racine, Abbey RPA-C Unavailable Unavailable Racine, Abbey RPA-C Unavailable Unavailable Racine, Abbey RPA-C Unavailable Unavailable Racine, Abbey RPA-C Unavailable Unavailable Racine, Abbey RPA-C Unavailable Unavailable Racine, Abbey RPA-C Unavailable Unavailable Racine, Abbey RPA-C Unavailable Unavailable Racine, Abbey RPA-C Unavailable Unavailable Racine, Abbey RPA-C Unavailable Unavailable RacineAbbey castorena RPA-C Unavailable Unavailable RacineAbbey RPA-C Unavailable Unavailable Abbey Covington RPA-C Unavailable Unavailable Racine, Abbey RPA-C Unavailable Unavailable INOCENCIO DIAZ Unavailable [...] Unavailable Unavailable CORBINE, S YOVANI Unavailable Unavailable Hunker Elie, L Mary DO Unavailable Unavailable Hunker Elie, L Mary DO Unavailable Unavailable Hunker Elie, L Mary DO Unavailable Unavailable Hunker Elie, L Mary DO Unavailable Unavailable Hunker Elie, L Mary DO Unavailable Unavailable Hunker Elie, L Mary DO Unavailable Unavailable Cizenski, [...] by Article 27-F of the [facility] Public Health law. If you continue you may have access to information: Regarding HIV / AIDS; Provided by facilities licensed or operated by the [facility] Office of Mental Health; or Provided by the [facility] Office for People With Developmental Disabilities. If such information is present, then the following [facility] mandated warning applies: This information has been [...] law may result in a fine or prison sentence or both. A general authorization for the release of medical or other information is NOT sufficient authorization for further disc losure. Allergies and Adverse Reactions Type Description Substance Reaction Status Data Source(s ) No Known Drug Allergies No Known Drug Allergies [facility] Drug Class NO KNOWN ALLERGIES NO KNOWN ALLERGIES [facility] Family History Family Member Name Family Member Gender Family Member Status Date o f Status Description Data Source(s) Unknown Condition [facility] Unknown Condition [facility] Unknown Unknown Problem [facility] ([facility] Unknown Unknown Problem [facility] ([facility]) Paternal aunt, PGM Unknown Unknown Problem [facility] ([facility] mother Encounters Encounter Providers Location Date Indications Data Source(s ) Outpatient Attender: YOVANI GAUTAM 12/08/2020 08:59:00 AM [facility] Outpatient Attender: GEORGIA HUGHES MD [email or web address] 11/29/2020 07:22:52 AM [facility] Outpatient Attender: YOVANI GAUTAM 11/10/2020 11:00:00 AM [facility] Outpatient Attender: INOCENCIO DIAZ 10/31/2020 11:00:00 AM [facility] Outpatient Attender: Minerva HALL 10/04/2020 10:07 :00 AM [facility] Outpatient Attender: Abbey CURRANCReferrer: Minerva HALL 09/19/2020 10:00:00 AM [facility] Emergency Attender: IMELDA Lynch: Silvano [facility] 09/15/2020 10:52:00 PM EST - 09/15/2020 11:55:00 PM [facility] Patient discharged. Outpatient Attender: Abbey Covington RPA-CReferrer: Jayden [facility]-CLN2 09/13/2020 10:16:00 AM EST - 09/13/2020 10:16:00 AM [facility] Emergency Attender: YULI BAIN PAReferrer : Minerva Huff [facility] 09/06/2020 10:12:00 PM EST - 09/07/2020 12:10:00 AM [facility] Patient discharged. Outpatient Attender: Minerva Huff FNPReferrer: Minerva Huff OPTICAL TECHNICIAN 08/30/2020 01:00:00 PM [facility] Outpatient Attender: Minerva Huff [facility] 08/23/2020 02:12 :00 PM [facility] Outpatient Attender: Abbey Covington RPA-CReferrer: ALICIA CHONG 08/17/2020 09:44:00 AM EDT - 08/17/2020 09:44:00 AM [facility] Emergency Attender: SMITH LUCERO MDConsultant: ALICIA CHONG 08/12/2020 09:23:00 PM EDT - 08/12/2020 10:35:00 PM EDT [facility] Patient discharged. Emergency Attender: YULI Tracy PAAttender: JUSTIN PAYAN PAReferrer: ALICIA CHONG 08/02/2020 07:27:00 PM EDT - [facility]02[facility] Attender: LINDSEY Short er: [facility] MDAttender: Bia KirklandReferrer: Mary [facility] [id number] 06/07/2020 12:0 0:00 AM EDT - 06/07/2020 10:57:00 PM EDT Chest pain, unspecified [facility] Chest pain, unspecified Patient discharged. Emergency Attender: YULI Harrellerrer : ALICIA CHONG EMERGENCY ROOM-ER 05/29/2020 11:05:00 PM EDT - 05/30/2020 02:45:00 AM [facility] Patient discharged. Outpatient Referrer: SHEREEN LAGUNA MD 12/30/2019 11:07:00 AM [facility] Emergency Attender: RYAN WEBSTERConsultant: ALICIA CHONG 11/12/2019 08:51:00 PM [facility] - 11/13/2019 12:27:00 AM [facility] Patient discharged. Emergency Attender: SMITH LUCERO MDConsultant: ALICIA CHONG 11/10/2019 06:10:00 PM [facility] - 11/10/2019 11:20:00 PM [facility] Patient discharged. Emergency Attender: CHAD CHONG EMERGENCY ROOM-ER 03/08/2019 11:22:00 PM EDT - 03/09/2019 01:58:00 AM [facility] Emergency Attender: Gilbert LARIOS EMERGENCY ROOM-ER 0 11/22/2018 07:22:00 PM [facility] - 11/22/2018 09:56:00 PM [facility] Emergency Attender: JUSTIN CHONG EMERGENCY ROOM-ER 07:58:00 PM [facility] - 10/06/2018 11:49:00 PM [facility] Emergency Attender: CHAD CHONG EMERGENCY ROOM-ER 10/01/2018 01:06:00 PM [facility] - 10/01/2018 03:35:00 PM [facility] Emergency Attender: CHAD CHONG EMERGENCY ROOM-ER 08/20/2018 [...] 0900, For 30 days
Administer with food.
[facility] Medication administered onsite 1 ML Ketorolac Tromethamine 30 MG/ML Car tridge ketorolac (TORADOL) 30 MG/ML injection 30 mg ketorolac (TORADOL) 30 MG/ML injection 30 mg 0 02:00:00 AM EDT 30 mg Intravenous active 30 m g, Intravenous, Every 6 hours, First dose (after last reorder) on Sat06/08/20 at 0200, For 3 doses [facility] Medication administered onsite Trazodone Hydrochloride 100 MG Oral Tablet trazodone ( DESYREL) tablet 100 mg trazodone (DESYREL) tablet 100 mg 06/07/2020 10:00:00 PM EDT 100 mg Oral active 100 mg, Oral, Nightl y, First dose on Sat06/07/20 at 2200, For 30 days [facility] Medication administered onsite Famotidine 20 MG Oral Tablet famotidine (PEPCID) table t 20 mg famotidine (PEPCID) tablet 20 mg 06/07/2020 09:00:00 PM EDT 20 mg Oral active 20 mg, Oral, 2 Times Daily, First dose on Sat06/07/20 at 2100, For 30 days [facility] Medication administered onsite 2 ML Metoclopramide 5 MG/ML Prefilled Sy ringe metoclopramide (REGLAN) injection 10 mg metoclopramide (REGLAN) injection 10 mg 06/07/2020 08:15:00 PM E DT 10 mg Intravenous completed 10 mg, I ntravenous, Once, Sat06/07/20 at 2014, For 1 dose
Reglan.
[facility] Medication administered onsite sodium chloride 0.9 % bolus 1,000 mL 5548-4329-16 06/07/2020 08:15: 00 PM EDT 1000 mL Intravenous completed 1,000 mL , Intravenous, Once, Sat06/07/20 at 2014, For 1 dose [facility] Medication administered onsite 1 ML Ketorolac Tromethamine 30 MG/ML Car tridge ketorolac (TORADOL) 30 MG/ML injection 15 mg ketorolac (TORADOL) 30 MG/ML injection 15 mg 0 08:15:00 PM EDT 15 mg Intravenous completed 15 mg, Intravenous, Once, Sat06/07/20 at 2014, For 1 dose [facility] Medication administered onsite iohexol (OMNIPAQUE) 350 MG/ML contrast injection 100 mL [id number] 06/07/2020 07:00:00 PM EDT 100 mL Given by IV completed 100 mL, Given by IV, 1 TIME IMAGING, Sat06/07/20 at 1900, For 1 dose [facility] Medication administered onsite Aspirin 81 MG Chewable Tablet aspirin chewable tablet 162 mg aspirin chewable tablet 162 mg 06/07/2020 05:00:00 PM EDT 162 mg Oral comp leted 162 mg, Oral, Once, Sat06/07/20 at 170, For 1 dose
Chew tablet before swallowing.
[facility] Medication administered onsite sodium chloride 0.9 % bolus 1,000 mL [id number] 06/07/2020 05:00: 00 PM EDT 1000 mL Intravenous completed 1,000 mL , Intravenous, Once, Sat06/07/20 at 1700, For 1 dose
Bolus Wide Open.
[facility] Medication administered onsite 2 ML Metoclopramide 5 MG/ML Prefilled Sy ringe metoclopramide (REGLAN) injection 10 mg metoclopramide (REGLAN) injection 10 mg 06/07/2020 05:00:00 PM E DT 10 mg Intravenous completed 10 mg, I ntravenous, Once, Sat06/07/20 at 170, For 1 dose [facility] Medication administered onsite Acetaminophen 325 MG Oral Tablet acetaminophen (TYLENO L) tablet 975 mg acetaminophen (TYLENOL) tablet 975 mg 06/07/2020 05:00:00 PM EDT 97 5 mg Oral completed 975 mg, Oral, O nce, Sat06/07/20 at 170, For 1 dose
Maximum daily dose of acetaminophen is 3,000 mg from all sources in 24 hours.
[facility] Medication administered onsite 100 mg 06/02/2020 12:00:00 [...] active Take 20 mg by mouth Daily [facility] 30 mg 05/20/2020 12:00:00 AM EDT capsule,delayed [...] type / Coverage type Policy ID Covered democrat ID Covered democrat's relationship to honeycutt Policy Honeycutt Plan Information [facility] [id number] SP [id number] [facility] [id number] SP [id number] [facility] [id number] S [id number] [employer] MEDICAID [id number] S [id number] UHC MEDICAID [id number] Kraol [id number] [facility]MCA[facility]) O [id number] S [id number] [employer] MEDICAID [id number] S [id number] [employer] MEDICAID [id number] S [id number] UHC COMMUNITY PLAN XIX [id number] 18 [id number] UHC I [id number] Self [id number] UHC I [id number] Self [id number] [employer] COMMUNITY PLAN [id number] [employer] MEDICAID [id number] S [id number] MEDICAID M [id number] Self [id number] [facility] Rudi/MCR Health Maintenance Organization (HMO) [id number] Self [id number] UNHC AMERICHOICE XIX -HMO [id number] 18 [id number] UNHC COMMUNITY PLAN XIX [id number] 18 [id number] UNHC COMMUNITY PLAN MCDHMO [id number] SP [id number] United [facility]Community [facility] Health Maintenance Organization (HMO) [id number] Self [id number] United [facility]CR/Community [employer] Maintenance Organization (HMO) [id number] Self [id number] UHC COMMUNITY PLAN [id number] MEDICAID [id number] SP [id number] MEDICAID M [id number] S [id number] UNHC COMMUNITY PLAN MCDHMO [id number] SP [id number] UHC I [id number] Self [id number] UNHC COMMUNITY PLAN MCDHMO [id number] SP [id number] United [facility]/Community [employer] Maintenance Organization (HMO) [id number] Self [id number] UHC I [id number] Self [id number] UHC I [id number] Self [id number] [employer] [facility]Community [employer] [facility] Maintenance Organization (HMO) [id number] Self [id number] United [facility]/Community [employer] [facility] Maintenance Organization (HMO) Self BLUE CROSS APONTE PLAN [id number] SP [id number] MEDICAID [id number] SP [id number] Problems, Conditions, and Diagnoses Code Display Name Description Problem Type Effective Dates Data Source(s) F50.2 Bulimia nervosa Bulimia nervosa Diagnosis 11/29/2020 07:2 2:52 AM [facility] F41.9 Anxiety disorder, unspecified Anxiety disorder, unspec ified Diagnosis 11/29/2020 07:22:52 AM [facility] M51.9 Unspecified thoracic, 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 Unspecified thoracic, thoracolumbar and Diagnosis 11/29/2020 07:22:52 AM [facility] R91.1 Solitary pulmonary nodule Solitary pulmonary nodule Di agnosis 11/29/2020 07:22:52 AM [facility] G62.9 Polyneuropathy, unspecified Polyneuropathy, unspecifie d Diagnosis 11/29/2020 07:22:52 AM [facility] Z86.69 Personal history of other di seases of the nervous system and sense organs Personal history of other diseases of th Diagnosis 021 07:22:52 AM [facility] M54.40 Lumbago with sciatica, unspecified side Lumbago with sciatica, unspecified side Diagnosis 11/29/2020 07:22:52 AM [facility] F31.9 Bipolar disorder, unspecified Bipolar disorder, unspec ified Diagnosis 11/29/2020 07:22:52 AM [facility] F41.9 Anxiety disorder, unspecified ANXIETY DISORDER, UNSPEC IFIED Diagnosis 11/10/2020 11:00:00 AM [facility] F31.62 Bipolar disorder, current episode mixed, moderate BIPOLAR DISORDER, CURRENT EPISODE MIXED, MODERATE Diagnosis 11/10/2020 11:00:00 AM [facility] F50.2 Bulimia nervosa BULIMIA NERVOSA Diagnosis 10/31/2020 11:0 0:00 AM [facility] M54.6 Pain in thoracic spine PAIN IN THORACIC SPINE Diagnosi s 10/04/2020 10:07:00 AM [facility] M25.50 Pain in unspecified joint PAIN IN UNSPECIFIED JOINT Di agnosis 10/04/2020 10:07:00 AM [facility] R10.11 Right upper quadrant pain RIGHT UPPER QUADRANT PAIN Di agnosis 10/04/2020 10:07:00 AM [facility] K59.09 Other constipation OTHER CONSTIPATION Diagnosis 05/2020 10:07:00 AM [facility] 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 BENIGN LIPOMATOUS NEOPLASM OF SKIN, SUBCU OF RIGHT Diagnosis 05/2020 10:07:00 AM [facility] L72.3 Sebaceous cyst SEBACEOUS CYST Diagnosis 10/04/2020 10:07: 00 AM [facility] R91.1 Solitary pulmonary nodule SOLITARY PULMONARY NODULE Di agnosis 10/04/2020 10:07:00 AM [facility] G62.9 Polyneuropathy, unspecified POLYNEUROPATHY, UNSPECIFIE D Diagnosis 10/04/2020 10:07:00 AM [facility] N63.0 Unspecified lump in unspecified breast UNSPECIFIED LUMP IN UNSPECIFIED BREAST Diagnosis 10/04/2020 10:07:00 AM [facility] N64.4 Mastodynia MASTODYNIA Diagnosis 10/04/2020 10:07:00 AM [facility] R00.2 Palpitations PALPITATIONS Diagnosis 10/04/2020 10:07:00 A M [facility] M54.81 Occipital neuralgia OCCIPITAL NEURALGIA Diagnosis 1 12/05/2019 10:07:00 AM [facility] G44.209 Tension-type headache, unspecified, not intractable TENSION-TYPE HEADACHE, UNSPECIFIED, NOT INTRACTABL Diagnosis 10/04/2020 10:07:00 AM [facility] G89.29 Other chronic pain OTHER CHRONIC PAIN Diagnosis 05/2020 10:07:00 AM [facility] M54.41 Lumbago with sciatica, right side LUMBAGO WITH S CIATICA, RIGHT SIDE Diagnosis 10/04/2020 10:07:00 AM [facility] M54.42 Lumbago with sciatica, left side LUMBAGO WITH SC IATICA, LEFT SIDE Diagnosis 10/04/2020 10:07:00 AM [facility] M54.16 Radiculopathy, lumbar region RADICULOPATHY, LUMBAR REG ION Diagnosis 10/04/2020 10:07:00 AM [facility] Z87.891 Personal history of nicotine dependence PERSONAL HISTORY OF NICOTINE DEPENDENCE Diagnosis 09/15/2020 10:52:00 PM [facility] Z79.899 Other longterm (current) drug therapy 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 Diagnosis 09/15/2020 10:52:00 PM [facility] R10.84 Generalized abdominal pain GENERALIZED ABDOMINAL PAIN Diagnosis 09/15/2020 10:52:00 PM [facility] M54.5 Low back pain LOW BACK PAIN Diagnosis 09/13/2020 10:16:00 AM [facility] R10.13 Epigastric pain EPIGASTRIC PAIN Diagnosis 09/13/2020 10:1 6:00 AM [facility] Z12.31 Encounter for screening mammogram for ma lignant neoplasm of breast ENCNTR SCREEN MAMMOGRAM FOR MALIGNANT NE Diagnosis 08/30/2020 01:00:00 PM [facility] Z13.29 Encounter for screening for other suspec [...] THE BLD/BLD-FORM ORG/IMMU Diagnosis 08/23/2020 02:12:00 PM [facility] Z13.220 Encounter for screening for lipoid disor ders ENCOUNTER FOR SCREENING FOR LIPOID DISORDERS Diagnosis 08/23/2020 02:12:00 PM [facility] Z76.89 Persons encountering health services [...] the external cause Diagnosis 08/12/2020 09:23:00 PM [facility] [id number] Exposure to other specified factors, ini tial encounter Exposure to other specified factors, initial encounter Diagnosis 08/12/2020 09:23:00 PM [facility] [id number] Strain of muscle, fascia and tendon of l ower back, initial encounter Strain of muscle, fascia and tendon of lower back, initial encounter Diagnosis 08/12/2020 09:23:00 PM [facility] [id number] Strain of muscle, fascia and tendon of l eft hip, initial encounter Strain of muscle, fascia and tendon of left hip, initial encounter Diagnosis 08/12/2020 09:23:00 PM [facility] T85078 Pain in left hip Pain in left hip Diagnosis 08/12/2020 09 :23:00 PM [facility] Y92.[address] or not applicable UNSPECIFIED PLACE OR NOT APPLICABLE Diagnosis 08/02/2020 07:27:00 PM [facility] X58.XXXA Exposure to other specified factors, ini tial encounter EXPOSURE TO OTHER SPECIFIED FACTORS, INITIAL ENCOU Diagnosis 08/02/2020 07:27:00 P M [facility] F17.210 Nicotine dependence, cigarettes, uncompl icated NICOTINE DEPENDENCE, CIGARETTES, UNCOMPLICATED Diagnosis 08/02/2020 07:27:00 PM [facility] L04.0 Acute lymphadenitis of face, head and ne ck ACUTE LYMPHADENITIS OF FACE, HEAD AND NECK Diagnosis 08/02/2020 07:27:00 PM [facility] J20.9 Acute bronchitis, unspecified ACUTE [...] pain, unspecified Diagno sis 06/07/2020 08:14:36 PM [facility] Chest pains, back and shoulder pain Chest pains, back and shoulder pain Diagnosis 06/07/2020 03:46:00 PM [facility] R51 Headache HEADACHE Diagnosis 05/29/2020 11:05:00 PM [facility] R19.7 Diarrhea, unspecified DIARRHEA, UNSPECIFIED Diagnosis 05/29/2020 11:05:00 PM [facility] R82184 Personal history of nicotine dependence Personal history of nicotine dependence Diagnosis 11/12/2019 08:51:00 PM [facility] A0811 Acute gastroenteropathy due to Afton a gent Acute gastroenteropathy due to Afton agent Diagnosis 11/12/2019 08:51:00 PM [facility] K219 Gastro-esophageal reflux disease without esophagitis Gastro-esophageal reflux disease without esophagitis Diagnosis 11/12/2019 08:51:00 PM [facility] R109 Unspecified abdominal pain Unspecified abdominal pain Diagnosis 11/12/2019 08:51:00 PM [facility] R935 Abnormal findings on diagnos tic imaging of other abdominal regions, including retroperitoneum Abnormal findings on diagnostic imaging of other abdominal regions, including retroperitoneum Diagnosis 0 06:10:00 PM [facility] K529 Noninfective gastroenteritis and colitis , unspecified Noninfective gastroenteritis and colitis, unspecified Diagnosis 11/10/2019 06:10:00 PM [facility] R1084 Generalized abdominal pain Generalized abdominal pain Diagnosis 11/10/2019 06:10:00 PM [facility] Surgeries/Procedures Procedure Description Date Indications Data Source(s) CT ANGIOGRAPHY CHEST W/CONTRAST/[place] [id number] CODE 06/07/2020 7:16 PM EDT 06/07/2020 07:16:50 PM EDT [facility] CT HEAD/BRAIN W/O CONTRAST MATERIAL CT HEAD WITHOUT CONTRAST 70 450 STAT 06/07/2020 7:05 PM EDT 06/07/2020 07:05:39 PM EDT [facility] COVID-19 PCR COVID-19 PCR Routine 06/07/2020 6:08 PM EDT [facility]07[facility] TROPONIN Routine 06/07/2020 6:01 PM EDT 06/07/2020 [facility]IAN INTERPRETATION EKG ED PHYSICIAN INTERPRETATION Routine 06/07/2020 5:59 PM EDT 06/07/2020 [facility]:59[facility] POCT ISTAT BHCG Routine 06/07/2020 5:07 PM EDT 06/07/2020 [facility]:07[facility]ST FRONTAL AND LATERAL 70711 XR CHEST FRONTAL AND LATERAL 10255 STAT 06/07/2020 5:03 PM EDT 06/07/2020 [facility]ANTITATIVE POCT ISTAT TROPONIN Routine 06/07/2020 4:04 PM EDT 06/07/2020 04:04:00 PM EDT [facility] PROBNP PROBNP Routine 06/07/2020 3:58 PM EDT 06/07/20 20 03:58:00 PM EDT [facility] BLOOD COUNT COMPLETE AUTO&AUTO DIFRNTL WBC COUNT CBC AND DIFFER ENTIAL Routine 06/07/2020 3:58 PM EDT 06/07/2020 03:58:00 PM EDT [facility] TROPONIN QUANTITATIVE TROPONIN T Routine 06/07/2020 3:58 PM EDT 06/07/2020 03:58:00 PM EDT [facility] PHOSPHORUS INORGANIC PHOSPHORUS LEVEL Routine 06/07/2020 3:58 PM E DT 06/07/2020 03:58:00 PM EDT [facility] MAGNESIUM MAGNESIUM LEVEL Routine 06/07/2020 3:58 PM EDT 06/07/2020 03:58:00 PM EDT [facility] LIPASE LIPASE LEVEL Routine 06/07/2020 3:58 PM EDT 06/07/2020 03:58:00 PM EDT [facility] HEMOGLOBIN GLYCOSYLATED A1C HEMOGLOBIN A1C Routine 06/07/2020 3:58 PM EDT 06/07/2020 03:58:00 PM EDT [facility] HEPATIC FUNCTION PANEL HEPATIC FUNCTION PANEL A Routine 06/07/2020 3:58 PM EDT 06/07/2020 03:58:00 PM EDT [facility] LIPID PANEL LIPID PANEL Routine 06/07/2020 3:58 PM EDT 06/07/2020 03:58:00 PM EDT [facility] BASIC METABOLIC PANEL CALCIUM TOTAL BASIC METABOLIC PANEL Routi ne 06/07/2020 3:58 PM EDT 06/07/2020 03:58:00 PM EDT [facility] EKG 12-LEAD - CMAXX REPORT EKG 12-LEAD - CMAXX REPORT 06/07/2020 2:42 PM EDT 06/07/2020 02:42:37 PM EDT [facility] EKG 12-LEAD - CMAXX REPORT EKG 12-LEAD - CMAXX REPORT 06/07/2020 2:42 PM EDT 06/07/2020 02:42:37 PM EDT [facility] EKG 12-LEAD EKG 12-LEAD STAT 06/07/2020 2:42 PM EDT 06/07/2020 02:42:37 PM [facility] Results ID Date Data Source [id number] 09/19/2020 01:59:00 PM [facility] [...] measures 11 cm and the left kidney cm longitudinally. Both kidneys display normal homogeneous echotexturethroughout and show no hydronephrosis. The visualized portions of the pancreas,spleen, the abdominal aorta and IVC are normal in appearance. IMPRESSION: Normal abdominal sonogram. Electronically signed in PS360 by: Jose Segovia M.D. 09/19/2020 13:54 EST Name Value Range Interpretation Code Description Data Michelle rce(s) Supporting Document(s) ID Date Data Source [id number] 09/16/2020 09:43:00 PM EST [facility] Patient: DAKOTA RAYMUNDO Observa tion Report - [facility].VisitID: [id number] [place] [address] [phone], FRegistration Date/Time: 09/15/2020 22:28 Weight:72.5 kg (S). Height/Length:61 inches (S). BMI:30.2 FAMILY HISTORYNo significant family medical history. (Electronically signed by Imelda Choi M.D. 09/16/2020 21:28) Name Value Range Interpretation Code Description Data Michelle rce(s) Supporting Document(s) ID Date Data Source [id number] 09/16/2020 07:09:00 AM EST [facility] [...] Name Value Range Interpretation Code Description Data [facility](s) Supporting Document(s) ID Date Data Source [id number] 09/15/2020 11:29:00 PM [facility] TSYSORDER [id number] Name Value Range Interpretation Code Description Data [facility](s) Supporting Document(s) GLUCOSE 80 mg/dL 74-106 [facility] BLOOD UREA NITROGEN 9 mg/dL 7-18 [facility] ital CREATININE 0.9 mg/dL 0.6-1.0 [facility]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 [facility] Eosinophils/100 leukocytes in Blood by Automated count 2.2 % 0.0 - 7.0 [facility] Basophils/100 leukocytes in Blood by Automated count 0.7 % 0.0 - 2.5 [facility] %IG 0.3 % 0.0 - 0.0 H [facility] al %NRBC 0.0 % 0.0 - 0.0 [facility] Neutrophils [#/volume] in Blood by Automated count 4.23 10^3/uL 2.00 - 6.90 [facility] Lymphocytes [#/volume] in Blood by Automated count 2.24 10^3/uL 0.60 - 3.40 [facility] Monocytes [#/volume] in Blood by Automated count 0.45 10^3/uL 0.00 - 0.90 [facility] Eosinophils [#/volume] in Blood by Automated count 0.16 10^3/uL 0.00 - 0.70 [facility] Basophils [#/volume] in Blood by Automated count 0.05 10^3/uL 0.00 - 0.20 [facility] #IG 0.02 10^3/uL 0.00 - 0.10 [facility] ospital #NRBC 0.00 10^3/uL 0.00 - 0.00 [facility] MANUAL DIFF NOT INDICATED [facility] RBC MORPH NOT INDICATED [facility] ID Date Data Source [id number] 08/02/2020 11:12:00 PM EDT [facility] Patient: DAKOTA RAYMUNDO Observa tion Report - Physicians/Mid Levels Hospital.VisitID: [id number] [place] [address] [phone], [facility] Date/Time: 08/02/2020 18:43 Weight:76.2 kg (S). Height/Length:61 [...] rce(s) Supporting Document(s) ID Date Data Source [id number] 08/02/2020 07:47:00 PM EDT [facility] [...] rce(s) Supporting Document(s) ID Date Data Source [id number] 06/08/2020 10:15:53 AM EDT [facility] Name Value Range Interpretation Code Description Data Michelle rce(s) Supporting Document(s) ED Provider Note [facility] OTITJu6tSiXAZvGf56/QTLveWJIaa7EqJUwhMGi9FHedZIPrG2YmCRX8nG5mNIW8BCwGReFdSjQkRVSl lbm [file] rQowslP2AMT2StAVo2/cash room clerk+7NPyLZsWR8Pk1rbvljs [file] eZxnLNAVHxx8ROS9YHtqKVEXKf4G ID Date Data Source [id number] 06/08/2020 12:42:04 AM EDT [facility] Name Value Range Interpretation Code Description Data Michelle rce(s) Supporting Document(s) ED Provider Note [facility] SCPCIf2yIiPFLzCa88/EFFggFBYgd8ImERouLVo2WPnkFPAkR6PsJJC4cE5hTQR5HWbYUlQgKrMqWKYs lbm [file] K1R2PjUiIjHqbeSfR3VETiDY4uJQXCZq0+RJbwbSFqtOmtBYEAEyI2VDK0AJixBNFXIu6H ID Date Data Source [id number] 06/07/2020 10:35:15 PM EDT [facility] Name Value Range Interpretation Code Description Data Michelle rce(s) Supporting Document(s) Discharge Summary [facility] ESIDNb1hTmLFWgPq77/WRZorRJUbu0TfUMzjCKm4YAyzTTWpF7WiONE8oY7iEZI1BFsGWdOiCmRiYKFc lbm [file] G7ubHlPCssFVu6SN7RDPZXZ8LFTe== ID Date Data Source [id number] 06/07/2020 09:36:08 PM EDT [facility] Name Value Range Interpretation Code Description Data Michelle e(s) Supporting Document(s) History and Physical [facility] WVXXTp8wAmVNGhPw20/CVVqrHRBth0FjISnaSYu2EFzhZLMsD9UcMEZ1dH8hMUJ3DRoSVrQbZzOrSMIe lbm OgPlgZYgJlITRtAxiMMmKbZGziIykogXHuTT8YxFN9QTEzZ46uGBPpKPIrF1VsQSWaUCU+Wt3VBNKkkJ ImMX8EOraK1N8Hr4aZZm9hqd6EG4VZWqnkXhpl4TjaM/KmDuBFy21x8uodsxKzKzkNFoE++iYLiYq9iJ BabTfWclOEnSY1V0+fcwBKFf9+VYPAsyxLZT/1n0Fk q+up+fjr7QuhI2zw0o+zGuSM1ljbfOzg/uBPly8p7iKycYTCbe5hgaVAQgA9hboCHx05ZP3/n1+NZ8v5 1YX1Nc1l56nxXqgp5VkrV+asydMZ44KuO490ip0/KA3p7Y18n0jK8+qa+Lt4mluA5Ia0Cv4cUuS5c1TO 6FoydrRxmYw5ozAzHO3oc+dZlqrczCzwF0LJF3J1b3 jUSBZ/sicuTGjj1E1FApeawVueNLOcqY33wjBlB/1MtSXVCf2YciZqPUi7M18vwz6WFRDumggBfU5ntY ma3vFDVn9ImuJQBnRy74cqHQkhHsG1Jrv+x9B1gqM27VWlhe/bjvktTam2XlyMGbJMjIfV22wyrmGsg1 tsD5yMkViL/0BbBzoSR+/1KafFYCTqHRkb1MLpx+Fw cCiXdzBUW1jT5kbROuhchMaKXd0H+HgwmkAe8hdxHJLMo6KdI6jQIk7PNguccLqaP3v0QrZj10d9kcW3 /DNfzD6am8Oiohiifp6MprQtWAYCuBgWYxI8XqlJCAkai7KyAv53tdpdtmfAqxYWPfeFf85PHIPt/1l2 tkm9E51qkoaIGheLICnoEQQJk9PeXSiD8vEewS27P8 auuDqOetTbaRymW5LwW0fV93vvxJTkiRjwPYJyyJR+8Von3yr6xrVtUa/CtrMuA9ZqjBPLAqMXfQ/Marjan [file] WkTnRaZVPmQ1EfQrTdUVYkGQI2KADuUCZ+IF0gDQ o+Xw6Uc5VkdlH4xbEbNNx0QyY1Ar0WNJVCM4GIZn== ID Date Data Source [id number] 06/07/2020 07:46:07 PM EDT [facility] CT HEAD WITHOUT CONTRAST [id number] RESU LTInterpreted by:Bassam Mccoy MDCLINICAL INDICATION: 30-year-old [...] rce(s) Supporting Document(s) ID Date Data Source [id number] 06/07/2020 07:29:01 [address] ED[address] [facility] CT ANGIOGRAPHY THORAX [id number] RESULTI nterpreted by:Rashaun Ivy [facility] [place] IN[place]: Evaluate for PE EXAMINATION: CT ANGIOGRAPHY THORAX [id number], 06/07/2020 6:57 PM, [id number]: Chest radiograph dated 06/07/2020.TECHNIQUE: Postcontrast CT angiogram [...] rce(s) Supporting Document(s) ID Date Data Source [id number] 06/07/2020 06:39:[address] [facility] Name Value Range Interpretation Code Description Data Michelle rce(s) Supporting Document(s) [facility] ospital XZZXUq2bPwFGNvRck8IgZcNxDQQfGZ6vvzq3S8E2kYDaH0JeqEExi5yzR4JyQ7KlLYEnLRRKET4UlFUb jb2 [file] 2G8lK2MFTxvW/QL+e21LbpJ/circuit walker/IV48F8I+J9OB6RqiD1pi9O1CzZmyHZoqi50MU/GuBXA/dlaN9Y8X bUkzHWgspWLn1rllfoPrQ4foTjYqOtEL10hG5X3piH dAAwfZ7q8z4LrpIQxja39Ozvv0KtJKamul+331Mq7hyODG29fF3X+ZYZzgwoYtF7hpl6X+SvxkL/XTdf Z8dG880744Us4TflXNM5Xc5J/u2XEztpdgmOksZffzGuvJjfL/bmvNjZ/EgriYugWYtF0jQknU/YW9cO vUN/7K17O/bmPSe/eq+lG4Bb1L/1xBJwkyDtf1/05F wwD2546b8MErJC4PGsm4Tz7U/3LH3s9Zxd/Kp+E/h9QD+zw6Vl0Hu1Y7uXZ1SDWfhHgzKnmGq9XeoS7q mjsrDDis2Gr14UzPb/Sp9g/NPVyK4Kb5Wa3N+rr/ENwE93YQ/Pl96KqJj/qt/c9Veu9/3lqokda8Tp+H 1pPxwabL7tXFD+do7H7Do8Fx1++lJI6yY3pMgDOKj/ On3Ek1/HoPEq7K7wk/VcD0Fp8Au9DK8AX0G/RP0L+lQwy7CdzywRzxEx61wR2F4A04ChU/B8B+J5IJ4H 6lfivikiEkvOdKKwI1WO8c35kcSWvpgb/g2aQmzFTjm/eq+hF+jl+de05E48DB/VGwn4Lg3IfcRt5C/x 2R3P1/F8Hc/XYa/DXkc8O+LZMV4F+d7fSuzm+aQH+m /g+Qaeb+S8Pq1j1Ijhy8z8PU12VnTQ7rz6nuVbJ5D5LM/E0hO5tt147H3yohzB8AaP1agPh5uut3uQoZ S6Nek2Ty5A6RrpZbQ+0DE/6JgfdMwPOuYHHfODjvlBx/vfH04CX+xd6L/JrzKWFsarhfFqYbxKflVlB+ dD0792yjwOe+G4AmxzlDoCfzQdnhcr+0EzI3PQIr/a T+o/1mzCXEwudLFpYWiI0K+/4tzbKP4rN857GlG14Ju5Jo5E/af/vtfQB/QB/YR+Qr9w/1tkusw3+47P 8ln3dqz+f+O5/Kofi+l3Do1Uy2Ty0Os7DuoW/+VU89/vS9egv9wHdJixGrL1ypV0peD2F+jfavd+/Ifd7 IeR+N0Zo71ZHuU5xV+gNeoN+QH+/r8Pm1Suy902lsm T0E/p57QK/Crn9N+Z235K87qL5W13uh0y+ggh7Jx2l49ko1Z1192NK5m/c9Trf/eewtJ1EVekd+rqz5f Ig937m6km0vCJ3I49xix5Zxs2SQ34fItyQ81N0vPwXOXkN8wp6g3YUTOho7KMH7/TBs8/1r2zuK/3Ym7 n8c1d1ffWq5RwgG1S++TrJDaYK/vvY8J9Xx/Otezj8 pe4w2Zf2n3Qhf90Zc/7nV1e2OfwGJhL+NdZHNzq4IEjtu5f+gff28sui87EuvXrtLNmB0pA63Yf7I3g1 33G/d0QL4pCUW+gk0Tvqvz251B/J0L5UtliwmA42IlajC2uZD+W1Qn/wI0W1UJS+MDA/RF9pX8Ceo7dw A/qAfkI/ob/dWdRA38Yew/rZCB5xyW7P8E8U+Ramana/i vVkuzdwdI7cupNXgA9P/RI9AQ62lD03pU+KpC/ZtEpQhqvIE7urY5M1V2Q+Ramana/vwXktsnaxK6q2usO+ vbA/mrmAO/d9SD/rmknZkNE11muF8Q1ttY/USdcxBQ0eR+MDA/BBmwl8o538IaXkCB/E2jd9MdwlL7Rj 8Cvmvr659d/l4fe+a9b43bwPf+IxbsxfqrwPqrwPqr wPqrWDdfF+pgE2LfmdepjTKxU+Z4P7317xnj+ERQm53e2hF+fu/Fiuj3H7+ZkotcaTtExV8E7bvX/FUg fxV7Q3/51Xzu9+8OizDGPv9Wi6Ek9TE3C6/yK8N3fF/4vaMeh/7yq/byehv28Ibo4Dj2Xq9B/w6vDvu0 YyJ/FpJbkvs9W38hS3vXPjygTatbf3We/+BE/moifz XFcT+B+ab6uhRjeiutuAmBL40uOxB+gc1tMd43if+qsC7V0S0i3h2ZOweD+vv+wLkde5Hyn5FvfhyC+m at1JJ3t+hY7KY8R18sjlOj23W+EPd/+wh+/yr3Oc/jCv79o/VpwMfoXGYUPCnRZsKVZwq4p0xft2Vg/q 4nEpVF3gsEU/JvVb+C35+N/JkHO8F7P4ZjTRDcZyTD gjRom9PkjMNIVvfRhSu11NAMXNioKsQ0RDkCqXbcI4H0siDlr/yz654+vKIlewUHr0pH150trs+HAhEn 4kSCtQXbmbyDyXtLH+SJu31cyOKMpLIuXUTNZENswuEMyiUBkksBm6P+SChz4HTacjpDHtso2z0QEnhR 9dMAW7It/GutgQiIly6zzSJJSXZwBUNTMBrShA+Ty ofO9heh20uc36S18i4IdpRHLcAyYk3inAl0ma+wmSZw2iLK3niz62YXyUyYjTYmDBui68TFEuNJuOMoq y6cdpCT+MpVuBvAsaZAi2UNOrRsacnLI77qQYc0iEp0cWaewFEYazkchublCCcXpfMu4eSHVcdgSC69z s1tkYQHrjXgH8LZCSMPXUUJNrTHCKmZpIX+jFhPc+9 6/ChPzjY5XSuZRGcQoVL0VWQxvNQz9GU+UY3qH7iZHtgH66uV7/zRTvH4THMOiEvVX47U5dyX/uCJZJ9 QXHLlFISmW9KZAVFUSQzOrDEHGLUHKJvhjKhdDqafu+F00Knmi5aSVMGfPn7NFYJG9hMzG2puCBF4THA EUdRV2pI1jsaalPJJijfINidjBFxHmJOUMDnJ6KP5a t2RBRuiYdE/JTd9zxPZWPCX4/nd4Q/tSanwrgHq5iDSXy0VDEB+/vX2rHzio17E4ajP+rzFvoYCi34k6 hiqOiZt2cBJXhZreHdEt+YqERm9ZlzxrV25nhZs1EBG8658LbuJmdDXbdccRPwhvfw3XNHmaD3ztteuA iHUq2ncwVIqqQOYLE+rrF2wlum1WNscTIMYP/kRZ64 brecCEe2F5owtXdDqEUqzVODjA8MKLC57YLlSUHSF9rQGsRVdZLiRMolT/KxHGZjnvFsj5sshSy1kPUN /jwUiAgRIaJElIgRoQ+x81UzkPDL7ePsHE8dU/bAPJfVRMUpkf9aE14tpjGwiU+R4Sk9cIOvUdFMcRvC 8IMVet/5V3MBTjqUKHdbrGncQsj8VGDzFyLPF/heSJ 30HLqaGch0yo+TTDUy01xRtXB+DkGICBElonibFU+TPn5WAtAMi4sMxqpIG7SbqtupgkWVDW1EoIFlCP qemC/+rBqlmaiRmzaV1IkujZAKsSG/IyjqB2nwSkzfBDMOM9BHnJVx3CRsKjEtnQemkDSxzZOMHG/hugo MbNNENSxxeRDSnQ5PAogQssYFHU+bdcOnsgz6tiV2+ lYLNUp9q2WfCDm/pgn8c4DFw9+JPY2TZReKnNFDySwCVQqe67Ve1X4XU6fBm1Sj82FsItUAbuZECGo2Z RdgDN215BcLkWEWZVNi8VX2Ymxl+k8OueS53Sq9X7lxX9411mWW+ud33SDqQfVCTo9JovKs0yekhW7xh F7IPOykD2fsH5tiX9tTrsMkwHz3t+2BexW7dT7Evda /ZyROzZ+3o7T30j5X2754kzilAW0kKoheKxLe8+vinkG784hru4UR49Mhya37wAlu+L2bqpTjxjdQOQM EHqQLyNFetX4eWK3rfbHZ/wJK5a47zM7wi0tlVD4siNZNMYNWrf2m0U/tqjeeXOMYo7Bwl575AVTemUc 3c35D3p7iKOz4RcWoEVRCNSZdDDJWdkEogjHI/sM2J VJDtQu1vJbbvWH/7RmH2liB/hCdcO0q5YFLWAJItYnMYAS2WhSOTN9iEH5kZMrZgnBPYkLw7EzLZL6ZE JsK+2PaJcbcu2rWmB3hhmrtEE6MgDAtKBNW+3KlCDzd125YhD2rYbU/clU/WyzDurTRGH17+ABuZ6yBw MNVVacfJFm81CaTXdQOXOFyd0EaB9NMUQ7P+8PLEEo [file] R92vY8YfZEIXzWc/Wwpk5bvzwh9KBD/10i1Dns/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 [file] /rj8g7Ko29+wZegd3r1qM+s91nb78u1061oy+KW32q Ll9/1kqtV7+kklfL+kpNp04u9lwOecp4dXKEnr/tW1N8+77JFx34q+NVXfSl93is5QtKip9NtvHfu5y5 LV4SyyS2MsGN5BNXt9NT5y+88eM8u/kgqiX+Q9pynXjB0s+TWeKxp+jecqpLfGcxWdW/4ltjA5Mp+7uN 71jMnlX+3jCf08+uVf1X/1OudZ/lWdf/lX+1igF+gV qmP49Vn3+Ik65DE23Cj8RbxERxIEpmKrWnOY68vz6R/VfS7/ah+tdCw8NflvlO+hvcu/6miGwQHx9Ao9 6F9D/xr6d/lX+5x2aixtfECQau/1HB+9XxeOoW/Qr/ba/gDxjMnlX+6ttW6cY+gxnpd/VeN8+Vc1/pd/ 2EdvzmLagfYKRg0G/NNoFVyyqzwVawtj4Hivx/8s/f tMrt3P7XQiN1ezu2BD46rDc1qNY/09L3DCkfJ6+Unpk25J+xn4m7HTlvm/1TK98/GzOt91Ag6FcJLRs9 o6cdqS6dmvmm7AoQE6U1OJuwpIalGw/6p27y3/gwfv1C2HsiftU8S7z/xnVsrZm9Nsei//xaNQYy3qVi e0Hp9C04B125xf+8pQMLxj4tcv58xY50oa1j6bk2je ec2IoHs2Y7RF3H/WCatn0HRw/au0Z/pX+X0w/tu5zckA0M/jJ6VlOdYe+lfZ7+lf9To+21U1CfX+ln9V 42rg+TvO+8LafFN+1iv7j8dv+kp2mhaGu/pX+/hy5iL0w38ViWLl8Ue0Ki9Vw3O21V2fMzaeqD5w3Y/t Y+gxf9O/fkCtM8c0/qRex5/U9K/quEHfoBfoBXqFXq B41E72l98p87L79H5/zVtX4Sl3AhZX+mf45KaBH/p59Iu/qv+330rhHhud1WRQk/irfazQK/DR4nrL32 K16V13Zc8Jf/Alvarez/+o7bb8Gr/rrdQwo66d0M2TsdG/Ll45D0trwV/9Ky7+qY+gdeoe+Q9+hD+xOfyAY4Z 5YogZsXaCvnh8Q/avo3/Dc3dG8Dv1Li/5V9K+ifxXt Tf9KU5/nevBODpRh8R/oJ/FMx0n36useMES2Hidul/w1we/XRaO6Ey82rWjSOkP7Zmjmy6r0fKgWmLs3 r6F/Df1r6F/BzIdVX1b4vlrpj4s5aUgLiYjZV6k2ojzfy1v8kGg3a1Zl+Qx3bKOQ/gGth3HGxK/Qz6Pv 34Wz5Ze3FA4w8p5rj0k1A0tc7s6h/djNqa0l3nuyjv 7t6N+O/s2s568+5uooki2QvWrW/Q4L24X3G/E4RS4I2xuAk1Q2eKemC7gvgiP77h7S830VoaRqZqA/A/ D97EwDNP0K41o1S+l8a60c4ko5cd6/MJ4H+wuijwb6b+x1n0J1g+FzdBz+Wcu/yuP++F2a/cLh1xRqzW y+Dcfj55Umhg3lRPfOj18633iQ3m/DtmJ74EmlL5Nx xqlPaGmrCGqM1pF83B72pMd59NL/zns7/uTaoVI+pKZ/ipUp703j/Nerve Specialist/+q2uV1n/cx4lyJcY47g3M47 3jm69J2bGuwAPm/QG/RQaZXlJK30DdeUdI/oA/oB/YB+Qn/Gd7Ewdx0t6KhgB/F9ys19sAcSn7xstzIX f7c3o/uLPdX8RW4Towt95FV13AGFdp7+rs5/tzc5vb U5EA6Ji3v8Vfzf6/UyC9z5pPSvwNsodzikN/1wjXquGHahf4Smkl+4eGB2w0o/9Qmn0Dl95auceEHvRN Ew6/oio2Trg8+GC64erl/rDSnot47Czi9zdBwvUS0xjhWdTs/E55odmr9lKkX4P7ktr3Jbccd89j17M7 7SeAoItC8drD/qRkQCLMj6kNjPWDseRVb41gQ3VTBs vw+cHkN1QGvDwj7uedb3edC/7gBdN211+FcG/1x7EE3DDE1Ul2s+S/8q+yj9q+wLPXyOpX+5f3Sw7F+j P59t2C9F/LJZj5A8l1h7jmX/TqqHhAJw5Xx4Ny7V39HfiB9vifLyW7fK5CH800ZkZ/yk+hFyOu0xcSvq afpX+lq4kT8jfkGC1M7/cN1933188QbU/6Z/tY+hH9 AP6DF/07/K4/Zu8zUNrakRn811puC84iysO0rmysQ4n+ow6xCMZic34p45j14AP9La/7n61Oaxa/d9w/ dBS/9qPacsDr+x9oPs+Tm0eKi15/mp1ulg04+c56/h+7My99AxB/L74D5+/UnOMYW0rh3gp++Koo9QDC +Tr+t5fNaZ/X93pNwF47MH2md/QtsRQ7piwI1zEs/t /Mffd3622FeW6i6zjC3+YtPfa85UeAlx66raaLaOU/Cvt5RRycaMnf7tm6vchQ227jMvqh6m/tYhWB7I H9TE4Ns5J+ca14jCg9mY/bm35V/V/c/BA66EKxBBjk9o0k2Mphw8Dv+qbJv+1VXHp1/Fc1iht4V/lc+a 9K+sjk+/p3+XOqV8slzoa5+sX6pf0mjiR/Zm5TjEF8 XFy/n2Lf06/vWq4KLn4I7Ta0D4nziPWu9Gc5Yj8Li932uSFfXsksM2a8SO7TI7aC4ND1J/8SreDt/uGX +V99DO/ZQJt6mjvl5Z15RvGSpY2cZ43VKkaa33qahofo51h95Y/YB+QD+hP+uVJ3+0z45ywG7tt89wC/ QKrVnhB4Ixhr0xU7cTnP7GteBgwJ/oA/oB/YB+Qn/4 WNcTv+SG1peye1cmlu4M0ophm5hthp9y8Qv9Ml1GCf1y2D8A/yr6V9G/iv5V9K+hf+2CvkHfoD/xKo74 F3e2qBW+yhF/5Yi/csRfOeKvHPFXjvgrT/+ncda3KwrxsO+hvYb2+nn+up/nr/rWN7Rv8JN+OtrraK+j zJ62Aubqidlehj624+hfR/898badn8U2+K4aqcP66V 8/3/t9p06c59V+U7nN1UH19N/VeezCMfRoL+UvoGC3fzrcSZt/xh7YjiW6Xv0W/nw/meuVDftz0ly0MY qM5+Nh2vdutGYg2dNsZt18jnbQ2py1lxcc1HevL/uJfvTT84OurHU3Hu07b6G+Wmaavsk3MCt4P/mrfQ w9+wunvno5u3L/Q1Ai6w5b2RwL+CtH/JUj/soRf+WI v/TP7PyVaxU9EkQwvP342hw6X+/18Xs9+OpMC1o7Kb//avlUDv/K07+h05eb6V72vzVS1+LzO4C6dlCR T/+hfrLuTO6zhRtkocQ0MrcKkSKsg//rRxP3cf898ZKhealh7q/6deJF+3X6t1/n+duv8/mhQ7Th3X/o z/lKps3w1y/Dt/d2+RwaTebk2X32hD4tV+gVeoPeoH foHfoOfYc+oA/oB/BFeoAC4st1MT0iy7qk59v/0uXn9+Vf6Ro/XTK+buaxb/6tL/8yl2l56N8enSix/l RC4mWfT2895Y2O/l3+ldZ+m9Doxvr3FyC3T3b34n/FN859s7g/GnX/N3/VZ/2dfzfRtvCR6+J8bXMUXL p0ckpg73J++5yuJ6oerO0y6C20Xg3ktklqY4rDe/2r O+9iHq/b620ylz7O6j++zuu/N1+NHDEqZ2cs7c3SgN6Q/Diee3qi/Lmn2qQBz1B5QB8jGi0v412B/O16 2oK2snacgwsj23hteufx5yvjdo3e5Ep0jr/86QTo5C6q7/tgx/fBju+WVa4JO63Ruvuz2Gv+0LU6hBF8 VEj7mO4ve8eP38ZM34Ap3ff9ri16B9+Pup/rO00Npb Dt2gL5oJ77o+6Hn+zeoe/QB/QB/sQ8wr1D5vbpxp/fy3q/oG/QN+ztKfTSp0Y9+elx4Rg6Pz/QO/Qd+g 59QB/GL55GqHpPp4OWA3G4It67EIa/7mXm5Tcj+t0FptGnl7/Vw/D7fN9P/fl+1ON8P+rRoe/QB/Rxnm tx+I2O+Pae/Ketan+HvDZ43Sdq0Fk6Tbl4Nn2paP9gbEp Hv+hZ/wIs8C995X0gI8U/irXn+SvFj/Wk79a/FhP/ipSv/irXIuSv/I8zniz/G8gjomV5BZ/yvU5+asc 16oc6MwP/irHZ/OJkS79l0kqgX2tq6/+vBOy7264A+cYeoVeobelz/PEm8IF7rCmQX0dj93Jvf/d22pv jtXlX+63B1tZaonSJ/vE8q/KgvXqpFG7Oq5Qw2/Kfo tyBgFdF4d/yr6L9K+rTg01pzo7+I2R/pXm/opOJniE2QQyYatC8+rQB/QB/fn+M8nOg7Omcu3a2/032n ysDjBCbmekx5NS7DP7Tt/P/Qb0zz0XA72/iow6Vr5RrzBi3Cd6E/rxrA9R+wfr+IjaYqVgze6Jzs5Boi 9Nqa3Nio5Mdo6Rdk9Lmh1ROZb9YrC9Uo6FdVaNDrln u6P2D+qfjA0wOhYR+wcD+wcD+wcD+wcD+wcD+wcD+wcD+wcD+brQ3O418Y/7b+h5/b9d0YjtJ/rAedBe XXeZ4B3/Ko/Yv5w7sSypEwfAxESmHG/fy5bibw9A3umT07C23IRv5O1C2Z2S1P9V0F7Zr4Wk5/3wwz8H +SgBdaUbfzR7HMC/XqXABm4lfZ+Fn/g84EIFAusaGI 8V4K8C/FWAvwrwVwH+AxMiSqsrAC9Q/YK+Qd+gF+dUedOeaFlsTRy4E/tNpX9F6YqJ/slZIxC9ewT/Fe EtFgrYzW0V4LoG/rxLMyB8xwV/FaHQK/QLVzw9ONm5Y5ToFUcN7Q64U8Bx4PsO/qqVD9NQnA4ToqQqqR V1O3pyfbV2CY4CA1UY/l9389R/Jxpy6AqV/ioGxvPA eAZ/FeCvAvxVgL+Qao7bvIqep3LjhXOLA354Rq06zjP935r4/iZ/xj6A1vvjTrN/pXXsj0+S/NU+9u27 KgXE9rf0/NtI/qrOOR5/ARThImcmIc1dnZ5f0U3G+KtR/HCd1tDYhUWw3eS0Hz2Aa/EhcJzlCkbCpo1F 6+q9Jht9Bt6j6SGeWpQT2Md0VibAnyyhdBs1Zi8524 jn+1TiCc5Tx4Qa1Qj3Bp/QO/Qd+g59QB/QD+xX1JPDd6Yb+LohZ//YaQPJVPwgn6TSnLxV/mu4aVG4E3 mmMUf7d3/qMW4Z9tkt+GpOTczXx3ruDt1e+a6x/KutX/tDs3+Hy5Eq7R63Rwn4K+f5O+XcSjyYy9w52a j0lwt1PUmq75mpBy/vJR5Bo5NcCDNu/nhO5oSOm1g2 Tv4qx/bir/axXuc3+vBaY/PXnRdNnK7DHvU/ZZG/ud+YoDI8xSKlv5/K3D/jNqVkzr+hi6/LeaEnnmFo 0j9ewJu/udF96uIbuKUyna2vU+WcKv/T4btsz9gh05tPflPg9Oi+FjD3uiDxKUz03RGLax4cN9JUfD4w Y79u2HP9uv5fP3yBp/FI+fsTjzTsxCMNP/FII/mrOj 7xSMNPPNKo+Bm0tLqAGqSwCoyvLh6qkISx8NoD91M+t33H4LkX/HUhhUwV5XR0wmFyT+9mh71qTiC39i pOaSZM2yw2X/Hto6N/lT3G3VrR/PIJflWGJx7oZ7PU0Xd5LR461zyVzdWP5L92Km8Qd/T4MM2jSu65Uq P+1YjzvXvg++LW208oYl+jCOgD+lH1cI9n7F1LBT/n NfLk6Dc+y9k6r8HaVqa/07+n7MaEI8w/CRm95CGH8s4gvSvdn03R/mrWsW/OZCR/KHOpz5oasS/lM2Kc /ZIj+StP/Prram2E/mof++JaUoDNHMdAdsIHs4C90q9JkVe/yj7N+Tx9HukIX9tc/PKvkoMaxV+tvgB/ MtUgicSx7fk0xI4/R9uvuSKWIboOutrhpaDK6qOmF4 O/BjhU52nBQ87CZiqJg4ke9/kHIM0B4qiP/+pKffZvHT9+47yOPzmvs/93XifebKZ/HotSN5fFw++h8z rfQ+d1+St2wf9mV/zVbCfebLbzPJrFX+Vf3AcLs9nlvjx5zhz+aoK/muCvZvFX+lhQ32ZrZ3DV1Mgqu+ A8E/j05FK9z9m4/CvSxf7dwt+a4K8m+KtZ/FX+Xv0c G/RBsdQ6vqC11Li4LS5UV2Bl5F/wO494cW5Q1VxS/JRUxtKYX59uSbP92LE/WpYcRGA7Ci8cl0+b2qHv 7Dt2Fh8SssW/oZ9HD/5qgr+vfa8PwgWUeLorPxrTbYon8SLhFc2x/irPg/419K+hfw39a+hfQ/8a+hf5 cuimV69mr9xItbYI/2oi/9VE/quJ/FcT+f5z7s7J7U +huK52tv1iHx/BNI8mteqVZ/mvJvJfTeS/msh/NZH/aiL/1UR+uwpB5j72wzP3q09XzyV72vdM0d39gq Z7z03m4u0vn0i6T7hmIu57+/E3Zp/BWi63zkBtTCnK79B9Jqs1BK9wBGmrPgtKES9Q83LG/tU+hr5Dj/ Maori/lynne/lynne/vsSrT7CR51+pXhMv4gFT+jRvwPtHWjv UWdE4jhEh4Zsjmx3TboPpAou3G5d/CoKwz9N9KvXO2O/+R59Q984P3m35a/z7D+i25SwqVk/Sj8h+avl O82oz9HxwOpftAbef7f/lynne/mhV/wzfmd958W/wNxF/N4q/qGPp5/JZ53n/x0K7JJ98g0XZiVnV7auX8 ZNx8OXRKDDCY3ZX9ziwEyYw8PUwPzMslX5uMppn3l/ nSeCRFVACUbvrYqVoEbXDC6sEqhNDPCLNMASQjOXSErCD5Xa/vVC/ydHk2KCWREZDPtcMw71TA+Fvgf8 8R6a48szp1DRcsgP06bn+/q3uur8U7yMgLEZ8AHMZm1abHb0A59Q0pv1lLoZP6OXatTO7s7JvfVUMI9G LvyK+KrJvfJtTrnY1R4fgeO+NAsntLj8WgLU//xBOf 0NTJ9cSQpi1Z3/ZZ8upSFv6tTldPlvQ0Kd2vLvMDHCSmsePGk+S8TBHaK8llyi128S0dSWfWO3Hnvu28 y1Am5oB2GU45By4Cy54R7cYq3uJEEftazVrMeCGNqwZW2ve93ELKcM2EthtrKiy6RiT/XWagK8mty5uj 2SHIMDMWMNIOVVH00UW1WUARNBLZtls1Cf/3ymu0tM 19OEBTYLCVKNCcZCEH24pKdI9UQMaOmtOm6OgXxZdEANIMjAoUhD0xOeCylQI6tuxuu4ADq8kmXgjAQS 9Xmk5NI7gJAm1vuJCYwNFBXemVdwrPK5Ja6UiIBqkFcYh4DNKDFAVvwA4yAz+8zsR/kXh8WcxSIiwAyT zvsy+AylK9E9E0PtC/Wkl8U35vRuVaq6QZ6GDavmvW zve9y3pA+nV4xAT1MIFrc2Wh+qB/DOKyxzXRFruVM5u1phDklh5ApmwKEUKyVJIqWkAgqOQscdCCcl8E JU6GjiHpDbgbtj17lKmSRmublaYxTtcmv8OwCFNy8LCIurgfm0ZbtKfC4m4ZCVPDCQ8lKJL3vOLxb2XD aPpJH8ObcU/dwOsq51c0pU1XrsqdPV9qvg3X5YXw3Q gl+NWfTVZoQp1IfUZmOff76SPKOr04f2QED8+11QNiNrs3v5vamz6fh3/D0p69FeOjRa95eiwRCHUVTW E9wWhZfq0jV+KbX02QbH7Lx2crZha6/FTASUoCPkLKAlR7IWsYB6eYUB1mENwnpznHP5FooI589bSWxX tYllIBtL2Rc1nYjJ4EeBAY8YcIm70geSMvZlTslbic Q6AofaFRTj2zdW25skK/7Lpqlbb+SPyISPZbCGnBF9CWVEXwXwyNDcFIBZFfDiHD5p7z8Y+BiBARIkpE iRgRI+NCdMCpFRE0ASuIlFAfVPB1QCVrtX/OVIj5KbnGucRI5FLEIT04ry5eh0W6DmmYJ6yEENylDXSx VZOjkDXJtdPQ7fAPxz230AmrnaksNRUtw3C3RyD340 o16T7sNAv5zXiKjFDvSNdv/pOU95/uzS1f7b5lKc2/SXv/Dw53BpOtp6S4/pPU95/kvv8k+f0n2e8/SX //Hf31VpBmKmCJmEGPiR4aKEik74SaNXgRo2HziSFAvFmdyHJcZObt2IjNTpg7gwTIpwT0ZloQs788SC anyRBgNNvGdKgZiRLjJGPV0DDUSxJcBB+s2N5fevNv tK9PfED9PNErREwEiOzP9yBwIStcLLj8zcLGeu3bdYlXdpT5V3s+/SxqFvxDnFluzEorbUODpWXZ7aR3 DsTk1chpyk7+YWKL3eNqu5k+S5KHj+DnZxO+axwH38oOhaujn/4jKBElYkSMiBNxIvSRkCmjtRlEgsgg MojgfaFVPNwSMqF++VWCjBktU+bKhplRi2cceHxZUf 8RlAiejZlYv/o0M+rWb0iHsVVZnKKO3s4v9E9NCCg0w9I/Q5UxZQF2zWasA0svqnO7qGlBf8j0SpeV8b EtTT9ZKWWiZkaw2m3nfo1iRohS45Oc+cK81BtK/YogayvlfqU+v7xkb1muEXvu+2E4WGYHVzc5+0fwh+ cYyOzM3VMx255dy3+p9/NoV8Tfv/6bvezblvx7I41a Io3iDIxdbEkpxGe1ThpC/s+OOMjEx3EI/3XG+hfEjfI1cf05wxQYj3XfnWUNJ/aAXXxisSuy+ESJ+s/i N96SGunQS9/khvKHE1qXcS3u31+dJM+2+WB0nmBcpKb1PQG88pzq4vQpZM+9WmVO/a1wcCqLQjv8WHYn 35Z5+rqwv89nyBqcLJ0OdctoG3QbDPgZjAVI+TdaJe srAGxlH2pg7mK9CWbcfUoGZAQrgsSxFKSMocq2btaF8O/9b4iJMuQLnZPypgMKslTVLI6p5U4ZE2ww/Y 3FkHDr8ABH6qjJLpWCKfn1JEFzDTESoRcpgO9C0ysZODAmDztix+Aa2PdDrrDuXUsLMqMsQOYRF2v1uF LBK1cy/geAQo0P9u/9k6AWEhYsMhpG8mxu01rS24Ic Hqe5EPX53ns3H2A+biLVEeS163dB/iceNE8y60P0kSvll6cIOF+DVp876S4EYd1h4K8gps1aVYOEqCcP FARROWING WORKER/lh2Se/98CBS5fRKi/omcy1X+xeZnrfy+dmex/wcN8mKCvfP/MSSBny5qA/0kdZcb/IpUy5X/RdJnz [file] 9nFmW6M61/+89v3//7a2ykVu90+394F93o9Mt/fvv+229+9+79h28+/zJt081/5otfff/29vb+u+8/fv Axe9d12h7+/+uu74877z6hilw11jf/oxw5wWLcg2E9 b779/sPb+6//+ePXv/kvfnY/h++tkklg47c/fnv35T/1Tv3cidi/9PW7b9++/O43v/3i/gcwlt4SWb+/ vv/x2y2YcoN+++rdLz+7N1S/Axod7Y7+pjoIwktc5rkkb0/95izhIf8/6uWti28/8e0/sKz1kz7+vH31 3fff/uq/+OftE9z//PIvf/73P/z0px//7e1f//fblz /89D9++Omvf/f2/i//+zIJa750c//W/F/+3c0ib64dq8jiC3p/+ie2Z4a4++1v/nZl2eam+5Tif/rTL/ 7F01wvRujhI/hPvwOu4/U+2JQ3cg9/XZfcDS27//69o23IEMTejMy+/QbgaM1P7Mv7m85px2L5J4++hu mg3BMLaWP6w5f/+O8//oWOfwPyb5R0lEgv7v095y7o 373/8Uc1X7a1+pMG6yf/PEb+5fprWreszf+n3jBsdU7bWyYadLpYOHPJ8PEz+rsf//zXv3/76Ye//vjJ 5U7GqMrH7k70fX86uYaxPa1+9g3+9v3bH/781x9/+n9/+ON/itaep07Rn/e+sSE/P/vG/vH9h7d/+5+v e//DX/4292Qq0XJ/I36q8sB+8eMv/dRi59lU8tOkCs UXL3/3o7JfN5jkKukk7c4r/lJNO8pFS0Fvo88+Kex19GxtY/v49sP/+vE//vPMefqtXZ/9X99/+9mdUe Q1+bS9/e+f/uVvf/br3Q9f/finH/74SQ/PT/Avf/ifv//hP/7ww59/ylUr082+8Oef//+ZTmF//Nf//N /HiO//8pc/wi5mlRy517/5/edOC6+ImKwdcOMff/z9 //jzH37/urnPv/r1d9+6b6kw5g226nZui9fg+fv/+Bfd9M0r611+/j7Os9gplvJDr//79uqEMR0+7je/ efftxw+5k3LD4c/8k/ivAu4oitLi/pIcq0ahd8/47jyLuxuz1Uzbrgw2qTrNg6U5w5/D1++fv4y l3gWlSCE7Xe3w7y5/aO701rFjl2jS6y83Scrmy9DT7 0re+Qzqv5/3ySR9jhgtmZloKAaUA2WEW3lg6TpWnB0NMFxj9CsAQliINc5tMRsZKvykkPwi3JrgsimC2 Bbt6JlZmYeKBSaUlAlMcu2FKUeVrC3pQOsOdDfXYWyX3KhDZIxSmS6MiGvAETVAT9DOLGezhXjZxDgVO I+JiEhSX9omzeaSCPtz7ExINgpYAsiINJbN8M2fViu GUVyK1YgxO95JCAqP3HfclQ4WJH7SZYzWoHyEWOkfGPyHZRgHBS+HwHoGP4jcjroAMNti8TnHDzrWPE9 fW6mNTjYZNTMWCmGYHyhBqX4d47heqZAFVEmZNPjVY2BznOqqOdwfoNsoQIuWCB1LbYuBGP4DVDtCUO7 UZKYBXDpZXVaAQEnCZAyD4LmwSspIKmLXPMOFEbOEF esIxOmy2R8BLQarmEUI1NTOvNYYxwyA7UGG7UKGFBUMIP6MXL9DzGmMJ3SuFLeUUZ0FZeTNHSDILnDAF vzIzCmn2J0JIXtP3HeNJAjacYcILBODXovKvfqXT5heHlorhoyC5SeuPWlCIOJBEXsAOSpJYAtBQRuQ2 Lih4P2Y0KtAGxRFNSTFMvWCWqeUcJ4u06ocmMAUSXo ZXMpID4+ME7oe9EjEr4ZUBXsSV4sgvy0ZI8IqXUaAX0TLTuytmSpX9cmufBdTdYzKEYTRQ2nI4IjrU56 CATHERINE+CtRoJL3oznv5jvVfCnXaSECeYPXlMBQwTPqrCCBsKROaAQMjNOY2ODX5VJXkHhFzRWJnWhJ3KuZa EQGaADMoeaRWKOMvJTC0MWUgLjYnKTYhEUJjWBctVA VgIQY0QDw6LCKoJGDhXQ6lQpWyCUMtIUEeTGRmVdM0CcCkCkFXKRNiALUwBBJrAbExYPUmWLSsYWprXO ItBWDjDCo2IDRvQPTpOL2yCwShCREgMXDsOOYmQOKbXTMupeVHGEEdBYSbRFX7MNMbTDRrQEAeMSbqMN PuGSLyGMP9XIGxVKFiZF3rQaCqEZZlGID1MgPvBRMu UVBbinHJNFDmIEAtCPD0SUFgJAScKNKxIBaoYJQmFZFqTfL5VJMcBZPnVF5fRhStFEPwDUC9EDVdRCOr UNLeizCTRIBcXUAvSUm3OqJnBJXnNOAmAGusLOZrGQYuBJdqONAlXJQnPO2aTjRbKYSaNOInTNFxMRSu CFCcxwLUWGYnJTHhUJH5JmSqPYIvFIPwNOmpBPUkSE KoUCE7TGPfOKFhXL9iNdZpZSWbTfIxUsHyHQFvWSRwydYJIWVnCRBhHZEkMEGfGKMwBSUpAMnwGEVfAX JqWqQ3YFYmOJRpYE2kOwDhREIgOPJ8VGMaKCKxOLLetcRICIYmLHPrPEFqAGD5XYBqLKJeXMg2pkWcjG ZzImw3Th1MmRkdJBE3Dd7IcyKjOPLoFJNTGi3Up329 IDUgMCBSCgo+MwjwoJVxlUmfBDCZLnK1JhKVSEXAB3W= ID Date Data Source [id number] [facility]/07/2020 10:50:07 [facility] YESMicroorganism XXX Cult : 2019 nCoV Real-Time RT-PCR: NOT DETECTEDTest performed using [employer] Respiratory Panel. This test is only for use under Food and Drug Administration's Emergency Use Authorization.Additional information is available on the following FDA websites for health care providers and patients. https://www.IsoPlexis.gov/Blastbeat/002638/download , https://www.fda.gov/med ia/887359/downloadPolymerase chain reaction is NEGATIVE for Influenza A H1, H3 and 2009 H1 viruses, Influenza B virus, Respiratory syncytial virus, Human metapneumovirus, Parainfluenza virus 1,2,3 and 4, Adenovirus, Rhinovirus/ Enterovirus, Coronavirus HKU1, NL63, OC43 and 229E, Bordetella pertussis, B. parapertussis, Mycoplasma pneumoniae and Chlamydia pneumoniae. Name Value Range Interpretation Code Description Data Michelle rce(s) Supporting Document(s) ID Date Data Source [id number] 06/07/2020 06:08:00 PM [facility] XXX-Imp : YESMicroorganism XXX Cult : 2019 nCoV Real-Time RT-PCR: NOT DETECTEDTest performed using [employer] Respiratory Panel. This test is only for use under Food and Drug Administration's Emergency Use Authorization.Additional information is available on the following FDA websites for health care providers and patients. https://www.IsoPlexis.gov/Blastbeat/968972/download , https://www.fda.gov/med ia/104146/downloadPolymerase chain reaction is NEGATIVE for Influenza A H1, H3 and 2009 H1 viruses, Influenza B virus, Respiratory syncytial virus, Human metapneumovirus, Parainfluenza virus 1,2,3 and 4, Adenovirus, Rhinovirus/ Enterovirus, Coronavirus HKU1, NL63, OC43 and 229E, Bordetella pertussis, B. parapertussis, Mycoplasma pneumoniae and Chlamydia pneumoniae. Name Value Range Interpretation Code Description Data Michelle rce(s) Supporting Document(s) Microorganism identified in Unspecified specimen by [facility] This lab was ordered by [facility] [place] and reported by [facility]. ID Date Data Source [id number] 06/07/2020 06:13:30 PM EDT [facility] Name Value Range Interpretation Code Description Data Michelle rce(s) Supporting Document(s) Troponin I.cardiac [Mass/volume] in Blood 0.00 ng/mL 0.00-0.08 [facility] ID Date Data Source [id number] 06/07/2020 05:08:[address] [facility] XR CHEST FRONTAL AND LATERAL [id number] RESULTInterpreted by:Emmanuel Mendiola MDINDICATION: chest pain. TECHNIQUE: [...] rce(s) Supporting Document(s) ID Date Data Source [id number] 06/07/2020 05:23:[address] [facility] Name Value Range Interpretation Code Description Data Michelle rce(s) Supporting Document(s) Choriogonadotropin.beta subunit free [Units/volume] in Serum or Plasm a <5 [facility] (NOTE)Levels between 5 and 25 [IU]/L may indicate earlypregnancy and should be repeated after 48 hours. ID Date Data Source [id number] [facility] Name Value Range Interpretation Code Description Data Michelle rce(s) Supporting Document(s) Troponin I.cardiac [Mass/volume] in Blood 0.12 ng/mL 0.00-0.08 H [facility] ID Date Data Source [id number] 06/07/2020 05:39:[address] [facility] Name Value Range Interpretation Code Description Data Michelle rce(s) Supporting Document(s) Natriuretic peptide.B prohormone N-Terminal [Mass/volu me] in Serum or Plasma 417 pg/mL <125 H [facility] ID Date Data Source [id number] 06/07/2020 05:14:[address] [facility] Name Value Range Interpretation Code Description Data Michelle rce(s) Supporting Document(s) Leukocytes [#/volume] in Blood by Automated count 6.2 10*3/uL 4-10 [facility] Erythrocytes [#/volume] in Blood by Automated count 4.50 10*6/uL 4.1- 5.3 [facility] Hemoglobin [Mass/volume] in Blood 13.2 g/dL 11.5-15.5 [facility] Hematocrit [Volume Fraction] of Blood by Automated count 40.4 % 3 6-45 [facility] Erythrocyte mean corpuscular volume [Entitic volume] by Auto mated count 89.8 fL 80-96 [facility] Erythrocyte mean corpuscular hemoglobin [Entitic mass] by Automated count 29.5 pg 27-33 [facility] Erythrocyte mean corpuscular hemoglobin concentration [Mass/volume] by Automated count 32.8 g/dL 32.0-36.0 [facility] width [Ratio] by Automated count 13.8 % 11.5-14.5 [facility] Platelets [#/volume] in Blood by Automated count 220 10*3/uL 150-400 [facility] Differential cell count method - Blood [facility] Neutrophils/100 leukocytes in Blood by Automated count 68 % [facility] Lymphocytes/100 leukocytes in Blood by Automated count 25 % [facility] Monocytes/100 leukocytes in Blood by Automated count 5 % [facility] Eosinophils/100 leukocytes in Blood by Automated count 1 % [facility] Basophils/100 leukocytes in Blood by Automated count 1 % [facility] Neutrophils [#/volume] in Blood by Automated count 4.29 10*3/uL 1.8-7 .0 [facility] Lymphocytes [#/volume] in Blood by Automated count 1.53 10*3/uL 1.2-4 .0 [facility] Monocytes [#/volume] in Blood by Automated count 0.30 10*3/uL 0-0.8 [facility] Eosinophils [#/volume] in Blood by Automated count 0.08 10*3/uL 0-0.5 [facility] Basophils [#/volume] in Blood by Automated count 0.04 10*3/uL 0-0.2 [facility] Nucleated erythrocytes/100 leukocytes [Ratio] in Blood by Automated count 0 /100{WBCs} 0-0 [facility] ID Date Data Source [id number] 06/07/2020 05:39:[address] [facility] Name Value Range Interpretation Code Description Data Michelle rce(s) Supporting Document(s) Albumin [Mass/volume] in Serum or Plasma by Bromocresol green (BCG) dye binding method 4.2 g/dL 3.5-5.2 [facility] Bilirubin.total [Mass/volume] in Serum or Plasma 0.4 mg/dL <1.2 [facility] Bilirubin.direct [Mass/volume] in Serum or Plasma <0.3 [facility] Alkaline phosphatase [Enzymatic activity/volume] in Serum or Plasma 74 U/L 35-104 [facility] Aspartate aminotransferase [Enzymatic activity/volume] in Serum or Plasma 17 U/L <32 [facility] Alanine aminotransferase [Enzymatic activity/volume] in Seru m or Plasma 8 U/L <33 [facility] Protein [Mass/volume] in Serum or Plasma 6.3 g/dL 6.4-8.3 L [facility] ID Date Data Source [id number] 06/07/2020 06:28:[address] [facility] Name Value Range Interpretation Code Description Data Michelle rce(s) Supporting Document(s) Lipase [Enzymatic activity/volume] in Serum or Plasma 39 U/L 13-6 0 [facility] ID Date Data Source [id number] 06/07/2020 09:36:59 PM [facility] Value Range Interpretation Code Description Data Michelle rce(s) Supporting Document(s) Cholesterol [Mass/volume] in Serum or Plasma 159 mg/dL <200 [facility] Triglyceride [Mass/volume] in Serum or Plasma 116 mg/dL <150 [facility] Cholesterol in HDL [Mass/volume] in Serum or Plasma 59 mg/dL >50 [facility] Cholesterol in LDL [Mass/volume] in Serum or Plasma by calcu lation 78 mg/dL <100 [facility] Cholesterol in VLDL [Mass/volume] in Serum or Plasma by calc ulation 23 mg/dl 16-42 [facility] Cholesterol non HDL [Mass/volume] in Serum or Plasma 101 mg/dL <130 [facility] ID Date Data Source [id number] 06/07/2020 09:02:[address] [facility] Name Value Range Interpretation Code Description Data Michelle rce(s) Supporting Document(s) Phosphate [Mass/volume] in Serum or Plasma 3.2 mg/dL 2.5-4.5 [facility] ID Date Data Source [id number] 06/07/2020 09:02:29 PM [facility] Value Range Interpretation Code Description Data Michelle rce(s) Supporting Document(s) Magnesium [Mass/volume] in Serum or Plasma 2.1 mg/dL 1.6-2.6 [facility] ID Date Data Source [id number] 06/07/2020 05:39:38 PM [facility] Value Range Interpretation Code Description Data Michelle rce(s) Supporting Document(s) Troponin T.cardiac [Mass/volume] in Serum or Plasma <0.01 [facility] ID Date Data Source [id number] 06/07/2020 05:39:38 PM [facility] Value Range Interpretation Code Description Data Michelle rce(s) Supporting Document(s) Bicarbonate [Moles/volume] in Serum 25 mmol/L -29 [facility] Chloride [Moles/volume] in Serum or Plasma 109 mmol/L 98-107 H [facility] Creatinine [Mass/volume] in Serum or Plasma 0.69 mg/dL 0.50-0.90 [facility] Glucose [Mass/volume] in Serum or Plasma 82 mg/dL 70-140 [facility] Potassium [Moles/volume] in Serum or Plasma 4.0 mmol/L 3.4-5.1 [facility] Sodium [Moles/volume] in Serum or Plasma 144 mmol/L 136-145 [facility] Urea nitrogen [Mass/volume] in Serum or Plasma 8 mg/dL 6-20 [facility] Anion gap 3 in Serum or Plasma 10 mmol/L 8-15 [facility] Osmolality of Serum or Plasma by calculation 295 mosm/kg 275-300 [facility] Creatinine/Urea nitrogen [Mass Ratio] in Serum or Plasma 12 [facility] Calcium [Mass/volume] in Serum or Plasma 9.1 mg/dL 8.6-10.0 [facility] Glomerular filtration rate/1.73 sq M pre dicted among non-blacks [Volume Rate/Area] in Serum or Plasma by Creatinine-based formula (MDRD) >6 0 [facility] Glomerular filtration rate/1.73 sq M pre dicted among blacks [Volume Rate/Area] in Serum or Plasma by Creatinine-based formula (MDRD) >60 [facility] ID Date Data Source [id number] 06/07/2020 09:23:57 PM EDT [facility] Name Value Range Interpretation Code Description Data Michelle rce(s) Supporting Document(s) Hemoglobin A1c/Hemoglobin.total in Blood by HPLC 5.0 % 4.0-6.0 [facility] (NOTE)<5.7% Average risk of diabetes (ADA)5.7-6.4% Increased risk of diabetes(ADA)>/= 6.5% Diagnostic for diabetes(ADA) Glucose mean value [Mass/volume] in Blood Estimated fr om glycated hemoglobin 97 mg/dL <126 [facility] ID Date Data Source [id number] 05/30/2020 09:43:00 AM EDT [facility] DATE OF EXAMINATION: 05/29/2020 [...] rce(s) Supporting Document(s) ID Date Data Source [id number] 05/30/2020 09:43:00 AM [facility] DATE OF EXAMINATION: 05/29/2020 23:17 EDT ABD/PEL [...] arrone(s) Supporting Document(s) ID Date Data Source [id number] 05/30/2020 09:43:00 AM [facility] DATE OF EXAMINATION: 05/29/2020 23:17 EDT SINUS [...] rce(s) Supporting Document(s) ID Date Data Source [id number] 05/30/2020 04:35:00 AM EDT [facility] Patient: DAKOTA RAYMUNDO Observa tion Report - [facility]VisitID: [id number] [place] [address] [phone], FRegistration Date/Time: 05/29/2020 22:16 Weight:78.4 kg (S). [...] rce(s) Supporting Document(s) ID Date Data Source [id number] 05/31/2020 04:05:00 PM EDT [facility] Name Value Range Interpretation Code Description Data Michelle rce(s) Supporting Document(s) H. PYLORI, IGM ABS <9.0 units 0.0-8.9 [facility] Negative <9.0 Equivocal 9.0 - 11.0 Positive > 11.0This test was developed and its performance characteristicsdetermined by [facility]. It has not been cleared orapproved by the Food and Drug Administration.Performed at: RN - [facility] [address] [id number] Director: Ingris Marcano MD, Phone: [phone] H. PYLORI, IGG ABS 0.17 0.00-0.79 [facility] INFCE Result Units: Index Value Negative <0.80 Equivocal 0.80 - 0.89 Positive >0.89 H. PYLORI, IGA ABS <9.0 units 0.0-8.9 [facility] Negative <9.0 Equivocal 9.0 - 11.0 Positive >11.0 ID Date Data Source [id number] 05/31/2020 04:05:00 PM EDT [facility] Name Value [...] and Drug Administration. ID Date Data Source [id number] 05/30/2020 12:56:00 AM EDT [facility] TSYSORDER [id number] Name Value Range Interpretation Code Description Data [facility] rce(s) Supporting Document(s) Campylobacter Not Detected Detected Not [facility] Clostridium difficile toxin AB Not Detected Detected [facility] Due to the high asymptomatic carriage ra leo, especiallyin young children, the clinical relevance of the detectionof toxigenic C. difficile from stool should be consideredin the context of other clinical findings, patient age, andrisk factores which include hospitalization and antibioticexposure. Plesiomonas shigelloides Not Detected Detected Not [facility] Salmonella Not Detected Detected Not [facility] ospital Vibrio Not Detected Detected [facility] spital Vibrio cholerae Not Detected Detected [facility] Yersinia enterocolitica Not Detected Detected [facility] Enteroaggregative E. coli Not Detected Detected [facility] Enteropathogenic E. coli Not Detected Detected [facility] Enterotoxigenic E. coli Not Detected Detected [facility] Shiga-like toxin-prod E. coli Not Detected Detected [facility] E. coli O157 Not Detected Detected [facility] Shigella/Enteroinvasive E coli Not Detected Detected [facility] Cryptosporidium Not Detected Detected [facility] Cyclospora cayetanensis Not Detected Detected [facility] Entamoeba histolytica Not Detected Detected [facility] Giardia Lamblia Not Detected Detected [facility] Adenovirus F 40/41 Not Detected Detected Not [facility] Astrovirus Not Detected Detected Not [facility] Norovirus GI/GII Not Detected Detected Not [facility] Rotavirus A Not Detected Detected Not [facility] Sapovirus Not Detected Detected [facility] The Above results have been determined b y using the [employer] system.[employer] is an automated in vitro diagnostic system thatutilizes nested multiplex Polymerase Chain Reaction (PCR)and high-resolution melting analysis to detect and identifymultiple nucleic acid targets from clinical specimens. ID Date Data Source [id number] 05/29/2020 11:36:00 PM EDT [facility] [id number] Name Value Range Interpretation Code Description Data Michelle rce(s) Supporting Document(s) PROTHROMBIN TIME (PATIENT) 10.1 SECONDS 9.2-11.6 [facility] INR 0.97 0.87-1.06 [facility] ID Date Data Source [id number] 05/29/2020 11:36:00 PM EDT [facility] [id number] Name Value Range Interpretation Code Description Data Michelle rce(s) Supporting Document(s) PARTIAL THROMBOPLASTIN TIME 25.5 SECONDS 21.4-30.2 [facility] ID Date Data Source [id number] 05/29/2020 11:35:00 PM EDT [facility] [id number] Name Value Range Interpretation Code Description Data Michelle rce(s) Supporting Document(s) MAGNESIUM 1.9 mg/dL 1.8-2.4 [facility] ID Date Data Source [id number] 05/29/2020 11:35:00 PM EDT [facility] [id number] Name Value Range Interpretation Code Description Data Michelle rce(s) Supporting Document(s) LIPASE 336 U/L 73-393 [facility] ID Date Data Source [id number] 05/29/2020 11:35:00 PM EDT [facility] T[facility] [id number] Name Value Range Interpretation Code Description Data Michelle rce(s) Supporting Document(s) GLUCOSE 83 mg/dL 74-106 [facility] BLOOD UREA NITROGEN 17 mg/dL 7-18 [facility] CREATININE 0.8 mg/dL 0.6-1.0 [facility] SODIUM 139 mmol/L 136-145 [facility] POTASSIUM 4.5 mmol/L 3.5-5.1 [facility] CHLORIDE 104 mmol/L 98-107 [facility] CO2 31 mmol/L 21-32 [facility] CALCIUM 9.0 mg/dL 8.5-10.1 [facility] ANION GAP 4.0 mmol/L 5-12 L [facility] GLOMERULAR FILTRATION RATE 84 mL/min Lydia [facility] GFR IS CALCULATED IN mL/min/1.73m2 KYLEIGH L FUNCTION: >90MILDLY DECREASED: 60-89MILDY TO MODERATELY DECREASED: 45-59 MODERATELY TO SEVERELY DECREASED: 30-44SEVERELY DECREASED: 15-29RENAL FAILURE: <15 AST 12 U/L 15-37 L [facility] ALT 20 U/L 12-78 [facility] ALKALINE PHOSPHATASE 77 U/L 46-[address] [facility] pital TOTAL BILIRUBIN 0.3 mg/dL 0.2-1.0 [facility] TOTAL PROTEIN 6.3 g/dl 6.4-8.2 L [facility] ALBUMIN 3.4 gm/dL 3.4-5.0 [facility] ID Date Data Source [id number] [id number] 05/29/2020 11:31:00 PM EDT [facility] ital TSYSORDER [id number] Name Value Range Interpretation Code Description Data Michelle rce(s) Supporting Document(s) URINE COLOR. [facility] URINE APPEARANCE CLEAR [facility] SPECIFIC GRAVITY,URINE >= 1.030 1.001-1.035 [facility] URINE LEUKOCYTE ESTERASE NEGATIVE NEGATIVE [facility] URINE NITRATE NEGATIVE NEGATIVE [facility] PH,URINE 6.0 5.0-9.0 [facility] URINE PROTEIN NEGATIVE mg/dL NEGATIVE [facility] GLUCOSE (UA) NEGATIVE mg/dL NEGATIVE [facility] URINE KETONE NEGATIVE mg/dL NEGATIVE [facility] UROBILINOGEN NORMAL(0.2-1) mg/dL 0-1 [facility] URINE BILIRUBIN NEGATIVE NEGATIVE [facility] URINE BLOOD NEGATIVE NEGATIVE [facility] ID Date Data Source [id number] 05/29/2020 11:19:00 PM EDT [facility] l TSYSORDER [id number] Name Value Range Interpretation Code Description Data Michelle rce(s) Supporting Document(s) WHITE BLOOD COUNT 5.8 K/mm3 4.0-10.0 [facility] RED BLOOD COUNT 4.34 M/mm3 4.00-5.50 [facility] l HEMOGLOBIN 13.0 gm/dL 12.0-16.0 [facility] HEMATOCRIT 39.0 % 36.0-48.8 [facility] MEAN CELL VOLUME 89.9 fl 80-96 [facility] MEAN CORPUSCULAR HEMOGLOBIN 30.0 pg 27.0-31.0 [facility] MEAN CORPUSCULAR HGB CONC 33.3 g/dl 32.0-36.0 [facility] RED CELL DISTRIBUTION WIDTH 12.9 % 10.0-14.5 [facility] PLATELET COUNT 236 K/mm3 172-450 [facility] MEAN PLATELET VOLUME 10.5 fl 9.0-13.[address] [facility] pital GRAN % 55.6 % 50-80.0 [facility] IG% 0.2 % 0.0-0.2 [facility] LYMPH % 35.6 % 25.0-50.0 [facility] MONO % 6.0 % 2.0-10.0 [facility] EOS % 1.9 % 0-5.0 [facility] BASO % 0.7 % 0.0-2.0 [facility] GRAN # 3.2 K/mm3 2.0-8.00 [facility] IG# 0.0 K/mm3 0.0-0.2 [facility] LYMPH # 2.1 K/mm3 1.0-5.0 [facility] MONO # 0.4 K/mm3 0.10-1.20 [facility] EOS # 0.1 K/mm3 0.0-0.5 [facility] BASO # 0.0 K/mm3 0.0-0.2 [facility] ID Date Data Source [id number] 02/05/2020 10:10:00 AM EDT [facility] Name Value Range Interpretation Code Description Data Michelle rce(s) Supporting Document(s) SARS CORONAVIRUS 2 RNA [facility] This lab was ordered by [facility] and reported by [facility]. ID Date Data Source [id number] 11/12/2019 08:51:00 PM EST [facility] 1 OrderSheet [facility] Emergency Department [address] [place] [address] Phone #: ext- [phone] 11/12/2019 20:48 Patient: DAKOTA RAYMUNDO [facility]#: [id number] Sex: F : 1990 Age: 29yWEIGHT:83.4 kg [...] Bolus 1000 Ryan Webster R.N. 2 OrderSheet [facility] Emergency Department [address] [place] [address] Phone #: ext- [phone] 11/12/2019 20:48 Patient: [...] rce(s) Supporting Document(s) ID Date Data Source [id number] 11/12/2019 08:51:00 PM [facility] 1 Medication Reconciliation Report [facility] Emergency Department [address] [place] [address] Phone #: ext- [phone] 11/12/2019 20:48 Patient: [...] to the patient: 2 Medication Reconciliation Report [facility] Emergency Department [address] [place] [address] Phone #: ext- [phone] 11/12/2019 20:48 Patient: DAKOTA RAYMUNDO Sex: F : 1990 Age: 29yProtonix 40 mg tablet,delayed release Take 1 tablet once a day for 30 days -- Dispense 30 tablet.Refills: 1. Substitution permitted.[facility] - [address] [place] [address]. .Zofran 4 mg tablet Take 1 tablet four times a day as needed for 4 days -- Dispense 16 tablet. Refills: 0.Substitution permitted.[facility] - [address] [place] [address]. . -- Ryan Webster M.D. Name Value Range Interpretation Code Description Data Michelle rce(s) Supporting Document(s) ID Date Data Source [id number] 11/12/2019 08:51:00 PM EST [facility] 1 Medication Administration Record [facility] Emergency Department [address] [place] [address] Phone #: ext- [phone] 11/12/2019 20:48 Patient: DAKOTA RAYMUNDO Sex: F : 1990 Age: 29yWeight: 83.4 kgHeight/Length: 61 inBMI: 34.8ALLERGIES: None, Toradol Date/Time Medication Administered Medication OrderedStart NS [IV] NS IV 1000 mL Bolus: : Bolus [id number] 11/12/2019 Dose: IV Fluids mL (X1)Munir Aguayo [...] rce(s) Supporting Document(s) ID Date Data Source [id number] 11/12/2019 08:51:00 PM EST [facility] 1 General Instructions [facility] Emergency Department [address] [place] [address] Phone #: ext- [phone] 11/12/2019 20:48 Patient: [...] days -- Dispense 30 tablet.Refills: 1. Substitution permitted.[facility] - [address] [place] [address]. .Zofran 4 mg tablet Take 1 tablet four times a day as needed for 4 days -- Dispense 16 tablet. Refills: 0.Substitution permitted.[facility] - [address] [place] [address]. .Follow-up:Return to the emergency department as needed. Follow up with your healthcare provider in two dayseven if well. Call for an appointment. Reason for referral: evaluation and treatment. Summary of care 2 General Instructions [facility] Emergency Department [address] [place] [address] Phone #: [phone]- [phone] 11/12/2019 20:48 Patient: DAKOTA RAYMUNDO Sex: F [...] viral gastroenteritis may include: 3 General Instructions [facility] Emergency Department [address] [place] [address] Phone #: ext- [phone] 11/12/2019 20:48 Patient: [...] with soap and water or use alcohol-based outside plant technician to prevent the spread of infection. Wash your hands after touching anyone who is sick. Wash your hands or use alcohol-based outside plant technician after using the toilet and before meals. [...] Keep uncooked meats away from cooked and hwlya-ui-ctm foods.MedicineYou may use acetaminophen or NSAID medicines [...] or after a stroke). 4 General Instructions [facility] Emergency Department [address] [place] [address], [place] [address] Phone #: ext- [phone] 11/12/2019 20:48 Patient: [...] and your symptoms improve. 5 General Instructions [facility] Emergency Department [address] [place] [address] Phone #: ext- [phone] 11/12/2019 20:48 Patient: DAKOTA RAYMUNDO Sex: F : 1990 Age: 29y If at any time it starts getting worse again, go back to clear liquids until you feel better.Follow-up careFollow up with your healthcare provider, or as advised. Call your provider if you don't get better iqkkwd81 hours or if diarrhea lasts more than a week. Also follow up if you are unable to keep down liquidsand get dehydrated. If a stool (diarrhea) sample was taken, call as directed for the results.Call [phone] if any of these occur: T rouble [...] your healthcare provider Sterling Vela General Instructions [facility] Emergency Department [address] [place] [address] Phone #: ext- [phone] 11/12/2019 20:48 Patient: DAKOTA RAYMUNDO Sex: F : 1990 Age: 29y [phone] [employer]. [address] [place] [address], [place] [address]. All rights reserved. This information is not [...] when lying down.Home care 7 General Instructions [facility] Emergency Department [address] [place] [address] Phone #: ext- [phone] 11/12/2019 20:48 Patient: [...] of the following occur: 8 General Instructions [facility] Emergency Department [address] [place] [address] Phone #: ext- [phone] 11/12/2019 20:48 Patient: DAKOTA RAYMUNDO Sex: F : 1990 Age: 29y Stomach pain gets worse or moves to the lower right abdomen (appendix area) Chest pain appears or gets worse, or spreads to the back, neck, shoulder, or arm An lapw-lpx-bwbxeqd trial of medicine doesn't relieve your symptoms Weight loss that can't be explained Trouble or pain swallowing Frequent vomiting (can't keep down liquids) Blood in the stool or vomit (red or black in color) Feeling weak or dizzy Fever of 100.4F (38C) or higher, or as directed by your healthcare provider [phone] [employer]. [address] [place] [address]. All rights reserved. This information is not intended as asubstitute for professional medical care. Always follow your healthcare professional's instructions. You have been given the following additional information: Gastroenteritis, Viral (Adult) GERD (Adult)(Electronically signed by Ryan Webster M.D. 11/13/2019 00:29) Name Value Range Interpretation Code Description Data Michelle rce(s) Supporting Document(s) ID Date Data Source [id number] 11/12/2019 08:51:00 PM EST [facility] 1 Clinical Report - Nurses [facility] Emergency Department [address] [place] [address] Phone #: ext- [phone] 11/12/2019 20:48 Patient: DAKOTA RAYMUNDO Sex: F : 1990 Age: 29yTRIAGEArrived by private vehicle. Historian: patient.Triage time: 20:49 11/12/2019.Chief Complaint: ABDOMINAL PAIN.Onset. (2 days ago). ( States that gabapentin is not helping. Vomiting and diarrhea stools, Like"mustard"). She has had fever (100.1).Treatment CONTENT DESIGNER:Recently seen at this facility; seen for similar [...] but declined (hours). 2 Clinical Report - [facility] Emergency Department [address] [place] [address] Phone #: ext- [phone] 11/12/2019 20:48 Patient: [...] Aguayo R.N. 3 Clinical Report - Nurses [facility] Emergency Department [address] [place] [address] Phone #: ext- [phone] 11/12/2019 20:48 Patient: [...] R.N.Patient transported to CT by wheelchair with optical technician. --22:38 11/12/19 Munir Aguayo R.N.( Pt [...] IV flushed 4 Clinical Report - Nurses [facility] Emergency Department [address] [place] [address] Phone #: ext- [phone] 11/12/2019 20:48 [facility]: [id number] Sex: F : 1990 Age: 29y thoroughly. [...] Patient verbalized understanding. Written instructions provided in Gambian. The patient was discharged by the physician. She was discharged home. She left ambulatory and via private vehicle. Patient driving. --00:19 11/13/19 Munir Aguayo R.N. ( Pt to be d/c'd with normal cat scan). --00:22 11/13/19 Munir Aguayo R.N.Locked/Released at 11/13/2019 00:27 by Munir Aguayo R.N. Name Value Range Interpretation Code Description Data Michelle rce(s) Supporting Document(s) ID Date Data Source [id number] 11/12/2019 08:51:00 PM EST [facility] 1 Clinical Report - Physicians/Mid Levels [facility] Emergency Department [address] [place] [address] Phone #: ext- [phone] 11/12/2019 20:48 Patient: [...] bedtime. 2 Clinical Report - Physicians/Mid Levels [facility] Emergency Department [address] [place] [address] Phone #: ext- [phone] 11/12/2019 20:48 Patient: [...] CT ABD PELVIS W/ IV ONLY INSTITUTION: [facility] ORDERING PHYSICIAN: Ryan Webster PATIENT HISTORY: ACTUAL DOSE 865.8 mGy*cm abdominal pain isovue 370 75cc [id number] Jun 2022 was given Patient hx hysterectomy. Verification of 2 patient identifiers performed. Time Out performed. type and amount of contrast used, correct body part and side all verified prior to examination. 3 Clinical Report - Physicians/Mid Levels [facility] Emergency Department [address] [place] [address] Phone #: ext- [phone] 11/12/2019 20:48 Patient: DAKOTA RAYMUNDO Sex: F : 1990 Age: 29y Exam has been sent to [facility] [employer] - If further information is needed, the number [phone]. Report will be faxed to ED and/or Xray. (Hx) / SAGITTAL (DICOM Hx)CT Abdomen/PelvisHistory:ACTUAL DOSE 865.8 mGy*cm abdominal pain isovue 370 75cc [id number] Jun 2022 was given Patient hxhysterectomy. Verification of 2 patient identifiers performed. Time Out performed. type and amount ofcontrast used, correct body part and side all verified prior to examination. [facility] [employer] [facility] - If further information is needed, the number is . Reportwill be faxed to ED and/or Xray. (Hx) / SAGITTAL (DICOM Hx)Technique:CT ABD PELVIS W/ IV ONLYDose length product (mGy-cm): Not providedReformations: OtherContrast: With; isovue 370 75cc [id number] Junomparison:CT - CT ABD PELVIS W/ IV [...] 13, 2019 12:17:50 AM EST by:Vik Woods, [place] [employer]. Abdominal CT performed with IV contrast. The study was 4 Clinical Report - Physicians/Mid Levels [facility] Emergency Department [address] [place] [address] Phone #: ext- [phone] 11/12/2019 20:48 Patient: DAKOTA RAYMUNDO Sex: F : 1990 Age: 29yinterpreted by the radiologist.Laboratory Tests: Laboratory tests have been ordered, with results reviewed and considered in themedical decision making process.CT Abd PEL W/ IV Contrast Only: (CASSIE: 11/12/2019 22:03) ( MsgRcvd 11/13/2019 00:18) Finalresults Exam CT ABD //T// PELVIS W/ IV ONLY [facility] [address] [place] [address] ---------NAME--------- NUMBER SEX AGE ADMIT DISC. XRAY# F/C TYPE DEONNA Colbert [id number] F 29 11/12/19 [id number] X6B E/R DATE OF : 1990 M/R# [id number] #: [phone] TR-08 LOCATION: EMERGENCY DEPT TRANSCRIBED: 11/13/[address] ABD //T// PELVIS W/ IV ONLY [id number] COMPLETED:11/12/19 23:12 DLA 91232 Reason(s): ABDMINAL PAIN, PANCREATITIS PHYSICIAN: ELEANOR GENAO R A D I O L O G Y R E P O R T PATIENT HISTORY: ACTUAL DOSE 865.8 mGy*cm abdominal pain isovue 370 75cc [id number] Jun 2022 was given Patient hx hysterectomy. Verification of 2 patient identifiers performed. Time Out performed. type and amount of contrast used, correct body part and side all verified prior to examination. Exam has been sent to [facility] [employer] [facility] - If further information is needed, the number is . Report will be faxed to ED and/or Xray. / SAGITTAL (DICOM Hx) CT Abdomen/Pelvis History: ACTUAL DOSE 865.8 mGy*cm abdominal pain isovue 370 75cc [id number] Jun 2022 was given Patient hx hysterectomy. Verification of 2 patient identifiers performed. Time Out performed. type and amount of contrast used, correct body part and side all verified prior to examination. Exam has been sent to [facility] - If further information is needed, the number is . Report will be faxed to ED and/or Xray. (Hx) / SAGITTAL (DICOM Hx) Technique: CT ABD //T// PELVIS W/ IV ONLY Dose length product (mGy-cm): Not provided Reformations: Other Contrast: With; isovue 370 75cc [id number] Jun 2022 Comparison: CT - CT ABD [...] lesion. 5 Clinical Report - Physicians/Mid Levels [facility] Emergency Department [address] [place] [address] Phone #: ext- [phone] 11/12/2019 20:48 Patient: [...] INDICATED 6 Clinical Report - Physicians/Mid Levels [facility] Emergency Department [address] [place] [address] Phone #: ext- [phone] 11/12/2019 20:48 Patient: [...] Care: 21:16 11/12/19. Data Detail Level: [employer] Bubbli Extended View 7 Clinical Report - Physicians/Mid Levels [facility] Emergency Department [address] [place] [address] Phone #: ext- [phone] 11/12/2019 20:48 Patient: [...] was requested by: Ryan Webster Reference #: [id number] PrescriptionsPatient Name: Dakota Raymundo Date: 1990Address: [address] [place] [address] Sex: FemaleRx Written Rx Dispensed Drug Quantity Days Supply Prescriber Name09/30/2019 09/30/2019 hydrocodone-acetaminophen 5-300 mg tablet 6 2 Ryan Webster MDOthers' PrescriptionsPatient Name: Dakota Raymundo Date: 1990Address: [address] [place] [address] Sex: FemaleRx Written Rx Dispensed Drug Quantity [...] GE Sx's; will treatand repeat workup, then [id number]:04 11/12/19. workup all in and reviewed, lipase is high compared to 11-10-19, will repeat CTAP w IV, 8 Clinical Report - Physicians/Mid Levels [facility] Emergency Department [address] [place] [address] Phone #: ext- [phone] 11/12/2019 20:48 Patient: DAKOTA RAYMUNDO Sex: F [...] tablet. 9 Clinical Report - Physicians/Mid Levels [facility] Emergency Department [address] [place] [address] Phone #: wkz- [phone] 11/12/2019 20:48 Patient: DAKOTA RAYMUNDO Sex: F : 1990 Age: 29y Refills: 1. Substitution permitted. [facility] - [address] [place] [address]. . Zofran 4 mg tablet Take 1 tablet four times a day as needed for 4 days -- Dispense 16 tablet. Refills: 0. Substitution permitted. [facility] [place] [address]. . Follow-up: Return to the emergency department [...] rce(s) Supporting Document(s) ID Date Data Source [id number] 11/13/2019 12:17:[address] [place] [address] ---------NAME--------- NUMBER SEX AGE ADMIT DISC. XRAY# F/C TYPE RAYMUNDO DAKOTA L [id number] F 29 11/12/19 [id number] X6B E/R DATE OF : 1990 M/R# [id number] PH#: [phone] TR-08 LOCATION: EMERGENCY DEPT TRANSCRIBED: 11/13/[address] ABD //T// PELVIS W/ IV ONLY [id number] COMPLETED:11/12/19 23:12 DLA 80722 Reason(s): ABDMINAL PAIN, PANCREATITIS PHYSICIAN: ELEANOR GENAO == R A D I O L O G Y R E P O R T PATIENT HISTORY:ACTUAL DOSE 865.8 mGy*cm abdominal pain isovue 370 75cc [id number] Jun 2022 wasgivenPatient hx hysterectomy. Verification of 2 patient identifiers performed.Time Out performed. type and amount of contrast used, correct body part and sideall verified prior to examination. Exam has been sent to [facility] - If further informationis needed, the number is . Report will be faxed to ED and/orXray. / SAGITTAL (DICOM Hx)CT Abdomen/PelvisHistory:ACTUAL DOSE 865.8 mGy*cm abdominal pain isovue 370 75cc [id number] Jun 2022 wasgiven Patient hx hysterectomy. Verification of 2 patient identifiers performed.Time Out performed. type and amount of contrast used, correct body part and sideall verified prior to examination. [facility] [facility] - If further information is needed, the number is .Report will be faxed to ED and/or Xray. (Hx) / SAGITTAL (DICOM Hx)Technique:CT ABD //T// PELVIS W/ IV ONLYDose length product (mGy-cm): Not providedReformations: OtherContrast: With; isovue 370 75cc [id number] Junomparison: CT - CT ABD //T// PELVIS [...] rce(s) Supporting Document(s) ID Date Data Source [id number] 11/12/2019 09:59:00 PM [facility] Name Value Range Interpretation Code Description Data Michelle rce(s) Supporting Document(s) Lipase [Enzymatic activity/volume] in Serum or Plasma 360 U/L 13 - 60 H [facility] ID Date Data Source [id number] 11/12/2019 09:53:00 PM [facility] Name Value Range Interpretation Code Description Data Michelle rce(s) Supporting Document(s) C reactive protein [Mass/volume] in Serum or Plasma by High sensitivity method 1.40 MG/L 1.00 - 3.00 [facility] CDC/S HS-CRP CUT-OFF: RELATIVE RISK: <1.0 mg/L Low 1.0 - 3.0 mg/L Average >3.0 mg/L High Optimally, the average of HS-CRP results repeated two weeks apart should be used for risk assessment. ID Date Data Source [id number] 11/12/2019 09:53:00 PM [facility] Name Value Range Interpretation Code Description Data Michelle rce(s) Supporting Document(s) COMPREHENSIVE METABOLIC PANEL [facility] COMPREHENSIVE METABOLIC PANEL Sodium [Moles/volume] in Serum or Plasma 141 mEq/L 134 - 153 [facility] Potassium [Moles/volume] in Serum or Plasma 4.9 mEq/L 3.6 - 5.0 [facility] Chloride [Moles/volume] in Serum or Plasma 105 mEq/L 98 - 107 [facility] Carbon dioxide, total [Moles/volume] in Serum or Plasma 31 MEQ/L 22 - 30 H [facility] Glucose [Mass/volume] in Serum or Plasma 99 MG/DL 65 - 110 [facility] BUN 10 MG[facility]DL 7 - [facility] Creat[facility] [Mass/volume] in Serum or Plasma 0.7 MG/DL 0.7 - 1.5 [facility] BUN/CREAT 14 8 - 27 [facility] al Protein [Mass/volume] in Serum or Plasma 6.5 G/DL 6.3 - 8.2 [facility] Albumin [Mass/volume] in Serum or Plasma 4.0 G/DL 3.9 - 5.0 [facility] Globulin [Mass/volume] in Serum by calculation 2.5 GM/DL 2.4 - 3.2 [facility] A/G RATIO 1.6 0.8 - 2.0 [facility] Calcium [Mass/volume] in Serum or Plasma 9.7 MG/DL 8.4 - 10.2 [facility] Bilirubin.total [Mass/volume] in Serum or Plasma 0.7 MG/DL 0.2 - 1.3 [facility] Alkaline phosphatase [Enzymatic activity/volume] in Serum or Plasma 90 U/L 38 - 126 [facility] Aspartate aminotransferase [Enzymatic activity/volume] in Serum or Plasma 19 U/L 5 - 40 [facility] Alanine aminotransferase [Enzymatic activity/volume] in Seru m or Plasma 11 U/L 7 - 56 [facility] Anion gap 3 in Serum or Plasma 5.0 mmol/L 8.0 - 16.0 L [facility] AGE 29 yrs [facility] NON-AA GFR >60 mL/min [facility] ital AFR AMER GFR >60 mL/min [facility] Ho spital Male GFR In terprentation [...] >32 mL/min Normal ID Date Data Source [id number] 11/12/2019 09:33:00 PM EST [facility] Name Value Range Interpretation Code Description Data Michelle rce(s) Supporting Document(s) Lactate [Moles/volume] in Serum or Plasma 1.1 MMOL/L 0.2 - 2.2 [facility] ID Date Data Source [id number] 11/12/2019 09:32:00 PM EST [facility] Name Value Range Interpretation Code Description Data Michelle rce(s) Supporting Document(s) CBC W/AUTOMATED DIFF [facility] COMPLETE BLOOD COUNT Leukocytes [#/volume] in Blood by Automated count 6.5 10^3/uL 4.2 - 1 1.0 [facility] Erythrocytes [#/volume] in Blood by Automated count 4.18 10^6/uL 4. 20 - 5.40 L [facility] Hemoglobin [Mass/volume] in Blood 12.0 g/dL 12.0 - 16.0 [facility] Hematocrit [Volume Fraction] of Blood by Automated count 37.7 % 3 7.0 - 47.0 [facility] Erythrocyte mean corpuscular volume [Entitic volume] by Auto mated count 90.2 fL 81.0 - 101 [facility] Erythrocyte mean corpuscular hemoglobin [Entitic mass] by Automated count 28.7 pg 27.0 - 34.0 [facility] Erythrocyte mean corpuscular hemoglobin concentration [Mass/volume] by Automated count 31.8 g/dL 31.0 - 36.0 [facility] Erythrocyte distribution width [Ratio] by Automated count 13.4 % 11.5 - 14.5 [facility] Platelets [#/volume] in Blood by Automated count 257 10^3/uL 150 - 45 0 [facility] Platelet mean volume [Entitic volume] in Blood by Automated count 10.0 fL 7.4 - 10.4 [facility] Neutrophils/100 leukocytes in Blood by Automated count 57.6 % 37. 0 - 80.0 [facility] Lymphocytes/100 leukocytes in Blood by Manual count 33.5 % 25.0 - 40.0 [facility] Monocytes/100 leukocytes in Blood by Automated count 4.7 % 3.0 - 8.0 [facility] Eosinophils/100 leukocytes in Blood by Automated count 3.2 % 0.0 - 7.0 [facility] Basophils/100 leukocytes in Blood by Automated count 0.8 % 0.0 - 2.5 [facility] %IG 0.2 % 0.0 - 0.0 [facility] Hospit al %NRBC 0.0 % 0.0 - 0.0 [facility] al Neutrophils [#/volume] in Blood by Automated count 3.77 10^3/uL 2.00 - 6.90 [facility] Lymphocytes [#/volume] in Blood by Automated count 2.19 10^3/uL 0.60 - 3.40 [facility] Monocytes [#/volume] in Blood by Automated count 0.31 10^3/uL 0.00 - 0.90 [facility] Eosinophils [#/volume] in Blood by Automated count 0.21 10^3/uL 0.00 - 0.70 [facility] Basophils [#/volume] in Blood by Automated count 0.05 10^3/uL 0.00 - 0.20 [facility] #IG 0.01 10^3/uL 0.00 - 0.10 [facility] H ospital #NRBC 0.00 10^3/uL 0.00 - 0.00 [facility] ospital MANUAL DIFF NOT INDICATED [facility] RBC MORPH NOT INDICATED [facility] spital ID Date Data Source [id number] 11/12/2019 09:29:00 PM EST [facility] Name Value Range Interpretation Code Description Data Michelle rce(s) Supporting Document(s) [facility] SOURCE R [facility] al COLOR yellow NORMAL: Yellow [facility] ospital CLARITY clear NORMAL: Clear [facility] spital Specific gravity of Urine by Test strip 1.010 1.001 - 1.030 [facility] pH 6.5 5 - 9 [facility] al Glucose [Mass/volume] in Urine by Test strip NORM NORMAL: [facility] Bilirubin.total [Presence] in Urine by Test strip NEG NORMAL: Negative [facility] Ketones [Presence] in Urine by Test strip NEG NORMAL: Negative [facility] Protein [Mass/volume] in Urine by Test strip NEG NORMAL: [facility] Nitrite [Presence] in Urine by Test strip NEG NORMAL: Negative [facility] BLOOD NEG NORMAL: Negative [facility] Leukocyte esterase [Presence] in Urine by Test strip 25 KYLEIGH L: Negative [facility] Urobilinogen [Mass/volume] in Urine by Test strip NOR less jeyson n 1.0 mg/dL [facility] MICROSCOPIC See Below [facility] Hosp ital WBC 1 - 3 NORMAL: NONE SEEN [facility] EPITHELIAL FEW NORMAL: NONE SEEN [facility] ID Date Data Source [id number] 11/10/2019 06:10:00 PM EST [facility] 1 OrderSheet [facility] Emergency Department [address] [place] [address] Phone #: ext- [phone] 11/10/2019 17:45 Patient: [...] 11/10/2019 18:53 BurnhamCatch) Kyle Avila ED P.A.-C; [id number] Acid STAT 18:51 11/10/2019 18:53 Sunitha Castillo [...] 100 mL/hr Yuli Castillo RN 2 OrderSheet [facility] Emergency Department [address] [place] [address] Phone #: ext- [phone] 11/10/2019 17:45 Patient: [...] rce(s) Supporting Document(s) ID Date Data Source [id number] 11/10/2019 06:10:00 PM EST [facility] 1 Medication Reconciliation Report [facility] Emergency Department [address] [place] [address] Phone #: ext- [phone] 11/10/2019 17:45 Patient: DAKOTA RAYMUNDO Sex: F : 1990 Age: 29yWeight: 83.4 kgHeight/Length: 61 in.BMI: 34.8ALLERGIES: None, ToradolThe patient's Home Medications are listed below:THE FOLLOWING MEDICATIONS NEED TO BE RECONCILED: Ibuprofen Oral (600 mg) 1 tablet, 3x a day, last dose: [id number] Safphris 20mg traZODone HCl Oral 200 [...] -- Dispense 6 tablet. Refills: 0.Substitution permitted.Pharmacy [id number] - [address] [place] [address]. . 2 Medication Reconciliation Report [facility] Emergency Department [address] [place] [address] Phone #: ext- [phone] 11/10/2019 17:45 Patient: DAKOTA RAYMUNDO Sex: F : 1990 Age: 29ygabapentin 100 mg capsule Take 1 capsule three times a day for 2 days -- Dispense 6 capsule. Refills:0. Substitution permitted.[facility] - [address] [place] [address]. FaxNumb er: . -- Yuli Jade P.A.-C Name Value Range Interpretation Code Description Data Michelle rce(s) Supporting Document(s) ID Date Data Source [id number] 11/10/2019 06:10:00 PM EST [facility] 1 Medication Administration Record [facility] Emergency Department [address] [place] [address] Phone #: ext- [phone] 11/10/2019 17:45 Patient: DAKOTA RAYMUNDO Sex: F : 1990 Age: 29yWeight: 83.4 kgHeight/Length: 61 inBMI: 34.8ALLERGIES: None, Toradol Date/Time Medication Administered Medication OrderedStart NS [IV] NS IV : Bolus 500 mL, then 28632:42 11/10/2019 Dose: IV Fluids mL/hrSunitha Castillo RN [...] rce(s) Supporting Document(s) ID Date Data Source [id number] 11/10/2019 06:10:00 PM EST [facility] 1 General Instructions [facility] Emergency Department [address] [place] [address] Phone #: ext- [phone] 11/10/2019 17:45 Patient: [...] days -- Dispense 6 tablet. Refills: 0.Substitution permitted.[facility] - [facility] - [address] [facility] ; [place] [address]. .gabapentin 100 mg capsule Take 1 capsule three times a day for 2 days -- Dispense 6 capsule. Refills:0. Substitution permitted.[facility] - [address] [place] [address]. .Follow-up:Return to the emergency department as needed. Follow up with your healthcare provider Recommend tof/u with PCP for furhter eval of CT findings. in three days if not better. Call for an appointment. Follow upwith a box spring upholsterer- as recommended by your health care provider. Reason for referral: evaluationand treatment.Understanding of the discharge instructions verbalized by patient. 2 General Instructions [facility] Emergency Department [address] [place] [address] Phone #: ext- [phone] 11/10/2019 17:45 Patient: ADKOTA RAYMUNDO Sex: F : 1990 [...] may also be needed. 3 General Instructions [facility] Emergency Department [address] [place] [address] Phone #: ext- [phone] 11/10/2019 17:45 Patient: DAKOTA RAYMUNDO Sex: F : 1990 Age: 29yHome [facility] may prescribe medicine for pain, [...] begin to improve in thenext 24 hours.Call [phone] if any of these occur: Trouble breathing Confusion 4 General Instructions [facility] Emergency Department [address] [place] [address] Phone #: ext- [phone] 11/10/2019 17:45 Patient: [...] or water and you are getting dehydrated [phone] [employer]. [address] [place] [address], [place] [address]. All rights reserved. This information is not intended as asubstitute for professional medical care. Always follow your healthcare professional's instructions.Noninfectious Gastroenteritis (Adult) 5 General Instructions [facility] Emergency Department [address] [place] [address] Phone #: ext- [phone] 11/10/2019 17:45 Patient: [...] spread of the illness 6 General Instructions [facility] Emergency Department [address] [place] [address] Phone #: ext- [phone] 11/10/2019 17:45 Patient: [...] until you feel better. 7 General Instructions [facility] Emergency Department [address] [place] [address] Phone #: ext- [phone] 11/10/2019 17:45 Patient: DAKOTA RAYMUNDO Sex: F : 1990 Age: 29yFood preparation If you have diarrhea, you should not prepare food for others. When you prepare food for yourself, wash your hands before and after. Wash your hands after using cutting boards, countertops, and knives that have been in contact with raw food. Keep uncooked meats away from cooked and djnvx-eo-yuq foods.Follow-up careFollow up with your healthcare provider if you are not improving over the next 2 to 3 days, or asadvised. If a stool (diarrhea) sample was taken, call for the results as directed.Call [phone] if any of these occur: Trouble breathing [...] output Weakness, dizziness Drowsiness 8 General Instructions [facility] Emergency Department [address] [place] [address] Phone #: ext- [phone] 11/10/2019 17:45 Patient: DAKOTA RAYMUNDO Sex: F : 1990 Age: 29y Fever of 100.4F (38.0C) or higher, or as directed by your healthcare provider Sterling joaquin [phone] [employer]. [address] [place] [address], [place] [address]. All rights reserved. This informat ion is [...] rce(s) Supporting Document(s) ID Date Data Source [id number] 11/10/2019 06:10:00 PM EST [facility] 1 Clinical Report - Nurses [facility] Emergency Department [address] [place] [address] Phone #: ext- [phone] 11/10/2019 17:45 Patient: [...] abdominal pain. The patienthas had fever (100.1).Treatment CONTENT DESIGNER:Took Tylenol. (1600).SEPSIS SCREEN: Negative (no infection suspected/documented). --17:53 11/10/19 Lucretia Barnes R.N.17:49 11/10/19. BP: 113/74. MAP: 87. HR: 91. RR: 20. O2 saturation: 95%. Temp: 98.6 F. Pain level now:06/06. --17:53 11/10/19 Lucretia Barnes R.N.Weight: 83.4 kg stated. Height/Length: 61 inches Per Patient. BMI: 34.8. --17:48 11/10/19 Lucretia Barnes R.N.MedicationsIbuprofen Oral (Tablet 600 mg) 1 tablet, 3x a day, last dose [id number]. Safphris 20mg. traZODone HCl Oral 200 mg, at bedtime. --18:12 11/10/19 Lucretia Barnes R.N.AllergiesNone. --17:50 11/10/19 Lucretia Barnes R.N.Toradol.(nausea, vomiting) --18:12 11/10/19 Lucretia Barnes R.N.PROBLEMS:Contusion.Bipolar Disorder.Abdominal Pain.Back Pain.Dental Caries.Insomnia.Ovarian Cyst.Endometriosis.Depression.Fall. --18:12 11/10/19 Lucretia Barnes R.N. 2 Clinical Report - Nurses [facility] Emergency Department [address] [place] [address] Phone #: ext- [phone] 11/10/2019 17:45 [facility]: [id number] Sex: F : 1990 Age: 29y ADDITIONAL [...] treatment room. --17:53 11/10/19 Lucretia Barnes R.N.PHYSICAL EOGDOODCIP90:55 11/10/19. Ambulatory to room.GENERAL / NEURO / PSYCH: Alert. Oriented X 4. Appears in no acute distress. 3 Clinical Report - Nurses [facility] Emergency Department [address] [place] [address] Phone #: ext- [phone] 11/10/2019 17:45 Patient: DAKOTA [facility]UNDO [id number] Sex: F : 1990 Age: 29y HEENT: [...] Pandya R.N. 4 Clinical Report - Nurses [facility] Emergency Department [address] [place] [address] Phone #: ext- [phone] 11/10/2019 17:45 ----- [...] The patient was discharged by the physician social research assistant. 5 Clinical Report - Nurses [facility] Emergency Department [address] [place] [address] Phone #: ext- [phone] 11/10/2019 17:45 --------- Patient: DAKOTA RAYMUNDO Sex: [...] rce(s) Supporting Document(s) ID Date Data Source [id number] 11/10/2019 06:10:00 PM EST [facility] 1 Clinical Report - Physicians/Mid Levels [facility] Emergency Department [address] [place] [address] Phone #: ext- [phone] 11/10/2019 17:45 Patient: DAKOTA RAYMUNDO [facility]#: [id number] Sex: F : 1990 Age: 29y Time [...] Surgeries: 2 Clinical Report - Physicians/Mid Levels [facility] Emergency Department [address] [place] [address] Phone #: ext- [phone] 11/10/2019 17:45 Patient: DAKOTA RAYMUNDON: [id number] [facility]#: [id number] Sex: F : 1990 Age: 29y Bowel Surgery. Colonoscopy. Colostomy. Hysterectomy. Tonsillectomy. Total colectomy. Tubal Ligation. Medications: Ibuprofen Oral (Tablet 600 mg) 1 tablet, 3x a day, last dose [id number]. Safphris 20mg. traZODone HCl Oral 200 mg, at bedtime. Allergies: None. Toradol.(nausea, vomiting).SOCIAL HISTORYNever smoker. History of drug use: marijuana. No alcohol use.ADDITIONAL NOTESThe [facility].PHYSICAL EXAMVital Signs: 11/10/2019 [...] EKG 3 Clinical Report - Physicians/Mid Levels [facility] Emergency Department [address] [place] [address] Phone #: [phone] unt- [phone] 11/10/2019 17:45 Patient: DAKOTA RAYMUNDO Sex: F [...] Male GFR Interprentation 20-49 yrs >60 mL/min Uhezbq83-80 yrs >56 mL/min Normal 60- 69 yrs >49 mL/min Normal 70-79yrs>42 mL/min Normal 80 and above >35 mL/min Normal Female GFRInterpretation 20-39 yrs >60 mL/min Normal 40-49 yrs >58 mL/minNormal 50-59 yrs >51 mL/min Normal 60-69 yrs >45 mL/min Echkfy50-45 yrs >39 mL/min Normal 80 and above >32 mL/min Normal 4 Clinical Report - Physicians/Mid Levels [facility] Emergency Department [address] [place] [address] Phone #: ext- [phone] 11/10/2019 17:45 Patient: DAKOTA RAYMUNDO Sex: F : 1990 Age: 29y Lipase: (CASSIE: 11/10/2019 19:05) ( [facility] 11/10/2019 20:29) Final results Test Result Flag [...] Indicate Lactic Acid: (CASSIE: 11/10/2019 19:05) ( [facility] 11/10/2019 19:34) Final results Test Result Flag [...] Thrombosis, Pulmonary Embolus, Tissue heart valves, Acute [place], Atrial Fibrillation, Valvular heart disease and recurrent [...] surgery. 5 Clinical Report - Physicians/Mid Levels [facility] Emergency Department [address] [place] [address] Phone #: ext- [phone] 11/10/2019 17:45 Patient: DAKOTA RAYMUNDO Sex: F [...] tablet. Refills: 0. Substitution permitted. Pharmacy - [facility] - [address] [place] [address]. . 6 Clinical Report - Physicians/Mid Levels [facility] Emergency Department [address] [place] [address] Phone #: ext- [phone] 11/10/2019 17:45 Patient: DAKOTA RAYMUNDO Sex: F : 1990 Age: 29y gabapentin 100 mg capsule Take 1 capsule three times a day for 2 days -- Dispense 6 capsule. Refills: 0. Substitution permitted. Pharmacy - [facility] - [address] ; [place] [address]. . Follow-up: Return to the emergency department as needed. Follow up with your healthcare provider Recommend to f/u with PCP for furhter eval of CT findings. in three days if not better. Call for an appointment. Follow up with a box spring upholsterer- as recommended by your health care provider. Reason for referral: evaluation and treatment. Understanding of the discharge instructions verbalized by patient.(Electronically signed by Yuli Jade P.A.-C 11/12/2019 01:09) Name Value Range Interpretation Code Description Data Michelle rce(s) Supporting Document(s) ID Date Data Source [id number] 11/10/2019 10:42:00 [place] [address] ---------NAME--------- NUMBER SEX AGE ADMIT DISC. XRAY# F/C TYPE DEONNA Colbert [id number] F 29 11/10/19 [id number] X6B E/R DATE OF : 1990 M/R# [id number] #: [id number] TR-1A LOCATION: EMERGENCY DEPT TRANSCRIBED: 11/10/19 22:[address] ABD //T// PELVIS W/ IV ONLY 96800 COMPLETED:11/10/19 21:21 KJE [id number] Reason(s): Abdominal Pain PHYSICIAN: PREM JADE CH = R A D I O L O G Y R E P O R T PATIENT HISTORY:Abdominal Pain ACC DLP- 962.7mGy*cmPatient hx of hysterectomy. Time Out performed. Correct patient with 2identifiers, Isovue 370 and 75mL of contrast used, Lot [id number], Exp 07/19,correct body part and side all verified prior to examination. Exam has been sent to [facility] - If further informationis needed, the number is . Report will be faxed to ED and/or Xray.kje / SAGITTAL (DICOM Hx)CT Abdomen/PelvisHistory:Abdominal Pain ACC DLP- 962.7mGy*cm Patient hx of hysterectomy. Time Outperformed. Correct patient with 2 identifiers, Isovue 370 and 75mL of contrastused, Lot [id number], Exp 07/19, correct body part and side all verified prior toexamination. Exam has been sent to [facility] - If furtherinformation is needed, the number is . Report will be faxed to EDand/or Xray. kje (Hx) / SAGITTAL (DICOM Hx)Technique:CT ABD //T// PELVIS W/ IV ONLYDose length product (mGy-cm): Not providedReformations: OtherContrast: With; Isovue 370 and 75mL of contrast used, Lot [id number], Exp 07/19Comparison: CTFindings:There are normal appearing stomach, [...] rce(s) Supporting Document(s) ID Date Data Source [id number] 11/10/2019 08:29:00 PM [facility] Name Value Range Interpretation Code Description Data Michelle rce(s) Supporting Document(s) Lipase [Enzymatic activity/volume] in Serum or Plasma 53 U/L 13 - 60 [facility] ID Date Data Source [id number] 11/10/2019 08:29:00 PM [facility] Name Value Range Interpretation Code Description Data Michelle rce(s) Supporting Document(s) COMPREHENSIVE METABOLIC PANEL [facility] COMPREHENSIVE METABOLIC PANEL Sodium [Moles/volume] in Serum or Plasma 142 mEq/L 134 - 153 [facility] Potassium [Moles/volume] in Serum or Plasma 4.4 mEq/L 3.6 - 5.0 [facility] Chloride [Moles/volume] in Serum or Plasma 106 mEq/L 98 - 107 [facility] Carbon dioxide, total [Moles/volume] in Serum or Plasma 23 MEQ/L 22 - 30 [facility] Glucose [Mass/volume] in Serum or Plasma 85 MG/DL 65 - 110 [facility] BUN 10 MG/DL 7 - 21 [facility] Creatinine [Mass/volume] in Serum or Plasma 0.7 MG/DL 0.7 - 1.5 [facility] BUN/CREAT 14 8 - 27 [facility] Protein [Mass/volume] in Serum or Plasma 5.8 G/DL 6.3 - 8.2 L [facility] Albumin [Mass/volume] in Serum or Plasma 3.9 G/DL 3.9 - 5.0 [facility] Globulin [Mass/volume] in Serum by calculation 1.9 GM/DL 2.4 - 3.2 L [facility] A/G RATIO 2.1 0.8 - 2.0 H [facility] al Calcium [Mass/volume] in Serum or Plasma 9.5 MG/DL 8.4 - 10.2 [facility] Bilirubin.total [Mass/volume] in Serum or Plasma 0.7 MG/DL 0.2 - 1.3 [facility] Alkaline phosphatase [Enzymatic activity/volume] in Serum or Plasma 84 U/L 38 - 126 [facility] Aspartate aminotransferase [Enzymatic activity/volume] in Serum or Plasma 14 U/L 5 - 40 [facility] Alanine aminotransferase [Enzymatic activity/volume] in Seru m or Plasma 9 U/L 7 - 56 [facility] Anion gap 3 in Serum or Plasma 13.0 mmol/L 8.0 - 16.0 [facility]GE 29 yrs [facility] GFR >60 mL/min [facility] AFR AMER GFR >60 mL/min [facility] Ho spital Male GFR In terprentation [...] >32 mL/min Normal ID Date Data Source [id number] 11/10/2019 07:38:00 PM EST [facility] Name Value Range Interpretation Code Description Data Michelle rce(s) Supporting Document(s) Prothrombin time (PT) 12.1 SECONDS 11.0 - 15.5 [facility] INR in Platelet poor plasma by Coagulation assay 0.89 0.93 - 1. 23 L [facility] \\BLDo\\INR INTERPRETATION\\BLDx\\ Therapeutic range for Coumadin and related oral anticoagulants. - International Normalized Ratio (INR): 2.0 - 3.0 for Venous Thrombosis, Pulmonary Embolus, Tissue heart valves, Acute [place], Atrial Fibrillation, Valvular heart disease and recurrent Systemic Embolism. -International Normalized Ratio (INR): 2.5 - 3.5 for Mechanical Prosthetic valve. ID Date Data Source [id number] 11/10/2019 07:33:00 PM EST [facility] Name Value Range Interpretation Code Description Data Michelle rce(s) Supporting Document(s) Lactate [Moles/volume] in Serum or Plasma 1.8 MMOL/L 0.2 - 2.2 [facility] ID Date Data Source [id number] 11/10/2019 07:32:00 PM EST [facility] Name Value Range Interpretation Code Description Data Michelle rce(s) Supporting Document(s) CBC W/AUTOMATED DIFF [facility] COMPLETE BLOOD COUNT Leukocytes [#/volume] in Blood by Automated count 6.2 10^3/uL 4.2 - 1 1.0 [facility] Erythrocytes [#/volume] in Blood by Automated count 4.13 10^6/uL 4. 20 - 5.40 L [facility] Hemoglobin [Mass/volume] in Blood 12.0 g/dL 12.0 - 16.0 [facility] Hematocrit [Volume Fraction] of Blood by Automated count 37.0 % 3 7.0 - 47.0 [facility] Erythrocyte mean corpuscular volume [Entitic volume] by Auto mated count 89.6 fL 81.0 - 101 [facility] Erythrocyte mean corpuscular hemoglobin [Entitic mass] by Automated count 29.1 pg 27.0 - 34.0 [facility] Erythrocyte mean corpuscular hemoglobin concentration [Mass/volume] by Automated count 32.4 g/dL 31.0 - 36.0 [facility] Erythrocyte distribution width [Ratio] by Automated count 13.3 % 11.5 - 14.5 [facility] Platelets [#/volume] in Blood by Automated count 251 10^3/uL 150 - 45 0 [facility] Platelet mean volume [Entitic volume] in Blood by Automated count 9.8 fL 7.4 - 10.4 [facility] Neutrophils/100 leukocytes in Blood by Automated count 55.4 % 37. 0 - 80.0 [facility] Lymphocytes/100 leukocytes in Blood by Manual count 35.3 % 25.0 - 40.0 [facility] Monocytes/100 leukocytes in Blood by Automated count 5.5 % 3.0 - 8.0 [facility] Eosinophils/100 leukocytes in Blood by Automated count 2.7 % 0.0 - 7.0 [facility] Basophils/100 leukocytes in Blood by Automated count 0.8 % 0.0 - 2.5 [facility] %IG 0.3 % 0.0 - 0.0 H [facility] Hospit al %NRBC 0.0 % 0.0 - 0.0 [facility] al Neutrophils [#/volume] in Blood by Automated count 3.45 10^3/uL 2.00 - 6.90 [facility] Lymphocytes [#/volume] in Blood by Automated count 2.20 10^3/uL 0.60 - 3.40 [facility] Monocytes [#/volume] in Blood by Automated count 0.34 10^3/uL 0.00 - 0.90 [facility] Eosinophils [#/volume] in Blood by Automated count 0.17 10^3/uL 0.00 - 0.70 [facility] Basophils [#/volume] in Blood by Automated count 0.05 10^3/uL 0.00 - 0.20 [facility] #IG 0.02 10^3/uL 0.00 - 0.10 [facility] H ospital #NRBC 0.00 10^3/uL 0.00 - 0.00 [facility] ospital MANUAL DIFF NOT INDICATED [facility] RBC MORPH NOT INDICATED [facility] Ho spital ID Date Data Source [id number] 11/10/2019 07:15:00 PM EST [facility] Name Value Range Interpretation Code Description Data Michelle rce(s) Supporting Document(s) URINALYSIS [facility] liz URINALYSIS SOURCE [facility] COL[facility] yellow NORMAL: Yellow [facility] H ospital CLARITY clear NORMAL: Clear [facility] Ho spital Specific gravity of Urine by Test strip 1.010 1.001 - 1.030 [facility] pH 6.5 5 - 9 [facility] Hospit al Glucose [Mass/volume] in Urine by Test strip NORM NORMAL: Negat [facility] Bilirubin.total [Presence] in Urine by Test strip NEG NORMAL: Negative [facility] Ketones [Presence] in Urine by Test strip NEG NORMAL: Negative [facility] Protein [Mass/volume] in Urine by Test strip NEG NORMAL: Negat [facility] Nitrite [Presence] in Urine by Test strip NEG NORMAL: Negative [facility] BLOOD NEG NORMAL: Negative [facility] Leukocyte esterase [Presence] in Urine by Test strip NEG KYLEIGH L: Negative [facility] Urobilinogen [Mass/volume] in Urine by Test strip NOR less jeyson n 1.0 mg/dL [facility] MICROSCOPIC Not Indicate [facility] Procedure Social History Code Duration Value Status Description Data Source(s ) Alcohol intake 06/07/2020 12:00:00 AM EDT Current drinker of al cohol (finding) completed Current drinker of alcohol (finding) [facility] Tobacco use and exposure 06/07/2020 12:00:00 AM EDT Never used co mpleted Never used [facility] Smoking 06/07/2020 12:00:00 AM EDT Former smoker completed Former smoker [facility] Vital Signs ID Date Data Source [id number] 06/08/2020 10:15:53 AM EDT [facility] Name Value Range Interpretation Code Description Data Source(s) WEIGHT RECORDED 174 lb 174 lb [facility] Body height Measured 61 in 61 in [facility] Patient Treatment Plan of Care Planned Activity Planned Date Details Description Data Source (s) Lurasidone Hydrochloride 40 MG Oral Tablet 06/08/2020 09:00:00 AM E DT [facility] 1 ML Ketorolac Tromethamine 30 MG/ML Cartridge 06/08/2020 02:00:00 AM [facility] Lurasidone Hydrochloride 20 MG Oral Tablet [Latuda] 05/20/20 12:00:00 AM [facility]
[2020-12-19] MEDS ORDERED: PERCOCET 5MG/325MG TAB PO PRN ×2 (09:30)
[2020-12-19] MEDS: NS 1,000 ML IV SCH ×4 (09:30→19:53)
[2020-12-19] MEDS ORDERED: KETOROLAC 30 MG/ML 1ML VIAL IV ONE (09:30)
[2020-12-19 09:37] LABS: AMPHETAMINES LEVEL URINE NEGATIVE (NEGATIVE); BARBITURATES URINE NEGATIVE (NEGATIVE); BENZODIAZEPINES URINE NEGATIVE (NEGATIVE); CANNABINOIDS URINE POSITIVE (NEGATIVE); COCAINE METABOLITE URINE NEGATIVE (NEGATIVE); METHADONE URINE NEGATIVE (NEGATIVE); OPIATES URINE NEGATIVE (NEGATIVE); PHENCYCLIDINE URINE NEGATIVE (NEGATIVE)
--- NOTE | 2020-12-19 09:43 | REP ---
INDICATION: ruq pain. COMPARISON: Comparison is made with CT study from earlier today.. TECHNIQUE: Right upper quadrant sonography. FINDINGS: Scanning through the right upper quadrant of the abdomen demonstrates a normal sized, thin-walled gallbladder without evidence of stone or polyp. Common bile duct is normal measuring 0.3 cm in greatest diameter. No focal liver lesion is seen. Liver size is normal. No pancreatic abnormality is observed. No right renal abnormality is seen. There is no evidence of ascites. The right kidney measures 10.8 x 4.3 x 4.2 cm. IMPRESSION: Negative right upper quadrant sonography. <Electronically signed by Yon Parker > 12/19/20 0935
[2020-12-19] MEDS: ONDANSETRON 4MG/2ML VIAL IV PRN ×2 (11:29→16:25)
[2020-12-19 12:00] VITALS: BP 122/68
[2020-12-19] MEDS ORDERED: HYDROMORPHONE HCL 0.5 MG/ 0.5 ML SYRINGE (J1170 PER 1) IV ONE (13:00)
--- NOTE | 2020-12-19 13:15 | HPEPDOC ---
[facility] Medical History & Physical Date of Admission Dec 19, 2020 Date of Service: Dec 19, 2020 History and Physical CHIEF COMPLAINT:" I fell over the railing." HISTORY OF PRESENT ILLNESS: 30-year-old female with history of marijuana abuse, anxiety, depression, bulimia, irritable bowel syndrome,Bowel perforation with nathalie-colectomy and re- anastomosis in 2016, presents to emergency room with acute onset of right upper quadrant abdominal pain after falling over the railing. Patient tripped over her dog while she was outside yesterday and presented with 10 out of 10 severe sharp pain in the right upper quadrant radiating to her back, unchanged by food, activity, and not alleviated by [id number]-preququ medications. in the emergency room she was found to have a lipase elevation of 1744. CT abdomen and pelvis was negative for acute intra-abdominal pathology. Ultrasound of gallbladder was negative. CT chest shows chronic pulmonary nodules, unchanged from prior imaging. General surgeon, Dr. Healy was consulted. Liver function tests are within normal limits. She denies any fever, chills. She had episodes of nausea without vomiting. No change in appetite. . She admits to having occasional diarrhea 2-3 times. Hospitalist was asked to admit the patient for intractable painand evaluation of elevated lipase of 1744. 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 Does not work outside the home. Social alcohol use. Denies smoking history FAMILY HISTORY: Mother and father alive with unknown medical problems. Maternal side has early history of coronary artery disease, AL in the maternal grandfather, maternal uncles dying of CAD, AL in their 40s ALLERGIES: Please see below. REVIEW OF SYSTEMS: 12 point review of systems negative aside from positive findings in HPI HOME MEDICATIONS: Please see below. PHYSICAL EXAMINATION: VITAL SIGNS:SEE BELOW GENERAL APPEARANCE: Awake, alert, oriented 3, answering questions appropriately HEENT: Anicteric, no jaundice, no pallor, no cyanosis CARDIOVASCULAR: Regular rate rhythm, S1, S2 LUNGS: Clear to auscultation wheezing or rales ABDOMEN: Positive bowel sounds 4 quadrants, soft, slightly tender right upper upper quadrant. No rebound, guarding nondistended. No ecchymosis Negative Clark Dunlap sign EXTREMITIES: Multiple tattoos bilateral upper extremities LABORATORY DATA: See below. IMAGING: INDICATION: fall 2 d ago and severe ruq pain and right lower rib pain. COMPARISON: Comparison CT study of the chest is from June 06, 2020.. TECHNIQUE: Helical scanning is acquired following the intravenous injection of 100 mL of Isovue 370. 3 mm axial images re-formatted. Coronal and sagittal MPR images are generated. FINDINGS: There is good opacification of the pulmonary arterial tree and the thoracic aorta. No vascular abnormality is seen. There is no evidence hilar or mediastinal mass or adenopathy. No pleural or pericardial effusion is seen. Normal adrenal glands are seen. The visualized upper abdominal structures are unremarkable. There is no evidence of infiltrate, atelectasis or mass. There are 2 subcentimeter noncal cified pulmonary nodules in the right lung unchanged from the June 06, 2020 prior study. No other pulmonary nodule is seen. No rib fracture or other bony a lesion is seen. IMPRESSION: No active cardiopulmonary disease. Two stable small subcentimeter pulmonary nodules on the right unchanged from June 06, 2020. INDICATION: ruq pain. COMPARISON: Comparison is made with CT study from earlier today.. TECHNIQUE: Right upper quadrant sonography. FINDINGS: Scanning through the right upper quadrant of the abdomen demonstrates a normal sized, thin-walled gallbladder without evidence of stone or polyp. Common bile duct is normal measuring 0.3 cm in greatest diameter. No focal liver lesion is seen. Liver size is normal. No pancreatic abnormality is observed. No right renal abnormality is seen. There is no evidence of ascites. The right kidney measures 10.8 x 4.3 x 4.2 cm. IMPRESSION: Negative right upper quadrant sonography. INDICATION: fall 2 d ago and severe ruq pain and right lower rib pain. Patient gives a history of total colectomy and tubal ligation. COMPARISON: Comparison CT abdomen pelvis September 15, 2020. Comparison study from August 06, 2017 is also reviewed.. TECHNIQUE: Helical scanning is acquired and 3 mm axial images re-formatted. Coronal and sagittal MPR images are generated. The CT contrast enhancement dose is 100 mL of intravenous Isovue 370. FINDINGS: Digital preliminary junior project manager radiograph demonstrates tubal ligation clamps in the pelvis and a normal bowel gas pattern. The liver and the spleen are intact. There is a tiny accessory splenule. No evidence of hepatic or splenic hematoma. There is no evidence of hemoperitoneum or pneumoperitoneum. No abnormality is noted in the pancreas. Gallbladder is unremarkable. Kidneys enhance symmetrically and are morphologically intact. There is a small subcentimeter cyst in the lower pole of the left kidney. There is evidence of subtotal colectomy. Ileocolic anastomosis in the right lower quadrant with the sigmoid colon. No bowel mass or inflammatory changes seen. The uterus appears to be surgically absent. Tubal ligation clamps are noted in the cul-de-sac. No pelvic mass or adenopathy is seen. No abdominal wall defect is seen. Bone window settings show no evidence of fra cture or bony destructive lesion. IMPRESSION: No acute traumatic abnormality. Status post subtotal colectomy and hysterectomy. Tubal ligation clamps visible in the pelvis. Otherwise negative. Dr. Bearden and he is going on with her problem <Electronically signed by Yon Parker > 12/19/20 3654 MICROBIOLOGY: Please see below. ASSESSMENT/PLAN: 30-year-old female with history of marijuana abuse, anxiety, depression, bulimia, irritable bowel syndrome,Bowel perforation with nathalie- colectomy and re-anastomosis in 2017 [place], presents to emergency room with acute onset of right upper quadrant abdominal pain after falling over the railing. Patient tripped over her dog while she was outside yesterday and presented with 10 out of 10 severe sharp pain in the right upper quadrant radiating to her back, unchanged by food, activity, and not alleviated by jyxh-bqn-griqbsb medications. in the emergency room she was found to have a lipase elevation of 1744. CT abdomen and pelvis was negative for acute intra- abdominal pathology. Ultrasound of gallbladder was negative. CT chest shows chronic pulmonary nodules, unchanged from prior imaging. General surgeon, Dr. Healy was consulted. Liver function tests are within normal limits. She denies any fever, chills. She had episodes of nausea without vomiting. No change in appetite. . She admits to having occasional diarrhea 2-3 times. [facility] was asked to admit the patient for intractable painand evaluation of elevated lipase of 1744. Musculoskeletal pain, right upper quadrant, status post-traumatic injury -with negative findings on CT abdomen, pelvis and right upper quadrant ultrasound -Patient's liver function tests are within normal limits -po prn oxycodone, IV fluids and intravenous Toradol -Gen. surgerywas consulted by the emergency room -the patient currently has no intra-abdominal pathology, and may be discharged home once pain is controlled Mechanical fall from standing -Patient tripped over her dog and fell over the railing landing on her right side causing right upper quadrant abdominal pain -prn pain meds Elevated lipase -Nonspecific finding. -No acute intra-abdominal pathology noted on CT abdomen, pelvis and right upper quadrant ultrasound -Liver function tests are within normal limits -She is afebrile and does not require any empiric antibiotics Anxiety, depression -Outpatient follow-up with her psychiatrist history of irritable bowel syndrome -GI referral as outpatient Recreational drug abuse with marijuana -Cessation counseling DVT prophylaxis Compression stockings Diet regular diet CODE STATUS full code Vital Signs Vital Signs Date Time Temp Pulse Resp B/P (MAP) Pulse Ox O2 Delivery O2 Flow Rate FiO2 12/19/20 08:58 98.2 87 20 112/70 99 Laboratory Data Labs 24H Laboratory Tests 2 12/19/20 07:46: Immature Granulocyte % (Auto) 0.2, Neutrophils (%) (Auto) 51.9, Lymphocytes (%) (Auto) 36.7, Monocytes (%) (Auto) 7.5, Eosinophils (%) (Auto) 2.9, Basophils (%) (Auto) 0.8, Neutrophils # (Auto) 2.7, Lymphocytes # (Auto) 1.9, Monocytes # (Auto) 0.4, Eosinophils # (Auto) 0.2, Basophils # (Auto) 0.0, Nucleated Red Blood Cells % (auto) 0.0, Prothrombin Time 12.6, Prothromb Time International Ratio 0.92, Activated Partial Thromboplast Time 29.3, Urine Color YELLOW, Urine Appearance HAZY, Urine pH 6.0, Urine Specific [place] 1.019, Urine Protein NEGATIVE, Urine Glucose (UA) NEGATIVE, Urine Ketones NEGATIVE, Urine Blood NEGATIVE, Urine Nitrite NEGATIVE, Urine Bilirubin NEGATIVE, Urine Urobilinogen 0.2, Urine Leukocyte Esterase NEGATIVE, Urine WBC (Auto) 2, Urine RBC (Auto) 2, Urine Hyaline Casts (Auto) 0, Urine Bacteria (Auto) NEGATIVE, Urine Squamous Epithelial Cells 0, Urine Calcium Oxalate Cryst (Auto) LARGE, Urine Mucus (Auto) SMALL, Urine Sperm (Auto) , POC Glucose (Misc Panel) 88, POC Sodium (Misc Panel) 140, POC Potassium (Misc Panel) 4.5, POC Chloride (Misc Panel) 104, POC Total CO2 (Misc Panel) 28.0H, POC Blood Urea Nitrogen (Misc Panel 14, POC Ionized Rubén cium (Misc Panel) 5.2, POC Creatinine (Misc Panel) 0.7, POC Hematocrit (Misc Panel) 39.0, Total Bilirubin 0.3, Direct Bilirubin 0.1, Aspartate Amino Transf (AST/SGOT) 7, Alanine Aminotransferase (ALT/SGPT) 20, Alkaline Phosphatase 79, Total Protein 6.5, Albumin 3.7, Albumin/Globulin Ratio 1.3, Amylase Level 181H, Lipase 1744H 12/19/20 09:03: CBC/BMP Laboratory Tests 12/19/20 07:46 Home Medications Scheduled Lurasidone Hydrochloride (Latuda) 20 Mg Tablet, 20 MG PO QPM Trazodone HCl (Trazodone HCl) 100 Mg Tab, 200 MG PO QHS Allergies Coded Allergies: No Known Allergies (Unverified , 07/08/19) A-FIB/CHADSVASC A-FIB History Current/History of A-Fib/PAF?: No Current PO Anticoag Therapy: No Age/Risk Factor Scoring CHADSVASC: CHADSVASC Response (Comments) Value Age Risk Factor Age < 65 years old 0 Gender Risk Factor Female 1 Hx of CHF No 0 Hx of HTN No 0 Hx of Stroke/TIA/or VTE No 0 Hx of Diabetes No 0 Hx of Vascular Disease No 0 Total 1 Treatment Treatment ordered: NONE ERENDIRA BEARDEN MD Dec 19, 2020 09:15
--- NOTE | 2020-12-19 13:59 | CR ---
CONSULTATION DATE: 12/19/2020 CHIEF COMPLAINT: Trauma to right upper quadrant and pain since that time (four days ago). BRIEF HISTORY OF PRESENT ILLNESS: The patient is a 30-year-old female with a history of chronic constipation who had a subtotal colectomy with ileorectal anastomosis in 2017 and she since that time has had multiple bowel movements per day. She really does not complain of any change in her bowel movements since the trauma to her right upper quadrant, eventually developed trauma to the right upper quadrant and came into the Emergency Room for further recommendations. She does have an elevated lipase and a CT scan which was negative for pathology including a negative ultrasound showing no evidence of stones which reportedly she states they did do a workup in the past concerning her elevated lipase and initially thought it was related to gallbladder but never had any follow-up cholecystectomy for this. She does not have any evidence of gallstones or gallbladder sludge on the ultrasound. She has had chronic pain since that time, she mostly complains of pain in the right upper quadrant/right lower rib area. PAST MEDICAL HISTORY: Significant for a history of marijuana abuse, history of anxiety, history of depression, history of bulimia, history of irritable bowel syndrome, history of bowel perforation with subtotal colectomy and reanastomosis in 2017. PHYSICAL EXAMINATION: GENERAL: Patient seems quite irritated, irritable when I first walk in the room and moving around, nervous, fidgeting, but at the end of the discussion and exam she initially states this was secondary to the pain that she was having but by the time our exam/discussion was finished she seemed comfortable. She was able to move around in bed without wincing or discomfort. She does not complain of any generalized abdominal pain. She is a 30-year-old who looks older than stated age. HEENT: Unremarkable. NECK: Supple without adenopathy. LUNGS: Clear anteriorly. HEART: Regular. ABDOMEN: Soft, tender in the right upper quadrant and actually in the right rib area. With distraction she really does not have tenderness or discomfort elsewhere in her abdomen. IMPRESSION AND PLAN: 1. Elevated lipase. Given her history of lipase elevation in the past, I am wondering if the etiology is unrelated to this and I would recommend an MRCP tomorrow. I will order that for her. She may have some inherent pancreatic divisum, etc. that may be the etiology for this. I am not seeing any evidence of pancreatic inflammation or swelling and I feel this is unrelated to trauma and this occurred four days ago and thus traumatic or pancreatitis with this severe of a clinical presentation should present with some inflammatory changes around the pancreas which I am not seeing. In any case, an MRCP might be further definitive, give some information towards this. If this is negative, then I would recommend an ERCP at some point in the future, it may not need to be performed as an outpatient. It could be evaluated as an outpatient should she resolve her abdominal pain prior to that time. 2. Right upper quadrant pain, this is mostly likely trauma related. I am not seeing any evidence of liver hematoma, subcapsular hematoma, ecchymosis or swelling on physical exam or even on the CT scan in this area. It may be some musculoskeletal issue that is the most likely etiology, bruised rib, etc. that might be causing this discomfort. In any case, pain control as necessary is recommended. If it is too significantly, possibly anesthesia could do a block of the ribs in this area. I will defer that judgment to the Hospitalist who is ordering the pain medication. Otherwise, will see what the follow-up labs are in the morning and will order that MRCP for tomorrow. Today, I feel she is uncomfortable enough and moving around enough that there may be some difficulty with having her lying flat first in an extended time to get adequate pictures.
[2020-12-19] MEDS ORDERED: oxyCODONE 5MG TAB PO PRN (14:00)
[2020-12-19 16:00] VITALS: BP 103/57
--- NOTE | 2020-12-19 16:00 | ECGEPIP ---
[facility] - ED Test Date: 2020-12-19 Pat Name: DAKOTA YING Department: Room: - Gender: Female Acidizer: ER : 1990 Requested By: Milagros Sanchez Order Number: [id number] Reading MD: Nakul Coombs Measurements Intervals Daniels Rate: 62 P: 43 FL: 150 QRS: 30 QRSD: 88 T: 34 QT: 448 QTc: 454 Interpretive Statements Normal sinus rhythm with sinus arrhythmia Extensive artifact, likely similar to tracing done 06-06-20 Electronically Signed on 12-19-2020 15:59:52 EST by Nakul Coombs
[2020-12-19] MEDS: KETOROLAC 30 MG/ML 1ML VIAL IV SCH ×2 (17:16→23:00)
[2020-12-19] MEDS: oxyCODONE 5MG TAB PO PRN ×2 (17:21→23:17)
[2020-12-19 20:00] VITALS: BP 137/84
[2020-12-19] MEDS ORDERED: MORPHINE 2 MG/ML 1ML VIAL (J2270) IV ONE (20:45)
[2020-12-20] VITALS: BP 129/75
[2020-12-20] MEDS: NS 1,000 ML IV SCH ×4 (01:58→21:45)
[2020-12-20 04:00] VITALS: BP 99/50
[2020-12-20] MEDS: KETOROLAC 30 MG/ML 1ML VIAL IV SCH ×3 (05:00→17:00)
[2020-12-20] MEDS: oxyCODONE 5MG TAB PO PRN ×3 (05:36→17:37)
[2020-12-20 06:58] LABS: HEMOGLOBIN 11.8 g/dl (12.0-15.5); MEAN CORPUSCULAR HEMOGLOBIN 29.6 pg (27.0-33.0); MEAN CORPUSCULAR HGB CONC 31.9 g/dl (32.0-36.5); PLATELET COUNT, AUTOMATED 167 10^3/uL (150-450); RED BLOOD COUNT 3.98 10^6/uL (4.00-5.40)
[2020-12-20 07:38] LABS: ALBUMIN 3.2 GM/DL (3.2-5.2); ALT/SGPT 16 U/L (12-78); BILIRUBIN,TOTAL 0.5 MG/DL (0.2-1.0); BLOOD UREA NITROGEN 7 MG/DL (7-18); CALCIUM LEVEL 8.5 MG/DL (8.5-10.1); CARBON DIOXIDE LEVEL 28 MEQ/L (21-32); CHLORIDE LEVEL 109 MEQ/L (98-107); CREATININE FOR GFR 0.62 MG/DL (0.55-1.30); GLOMERULAR FILTRATION RATE > 60.0 (>60); GLUCOSE, FASTING 98 MG/DL (70-100); LIPASE 316 U/L (73-393); SODIUM LEVEL 142 MEQ/L (136-145); TOTAL PROTEIN 5.5 GM/DL (6.4-8.2)
[2020-12-20 08:00] VITALS: BP 118/65
[2020-12-20] MEDS ORDERED: oxyCODONE 5MG TAB PO ONE (08:45)
[2020-12-20 12:00] VITALS: BP 124/75
--- NOTE | 2020-12-20 13:11 | REP ---
INDICATION: ELEVATED LIPASE. MRCP protocol. COMPARISON: Comparison CT study December 19, 2020.. TECHNIQUE: Axial and sagittal T2 weighted scans are acquired. MRCP acquisition is performed and maximum intensity projection images are generated. FINDINGS: No focal hepatic or splenic lesion is seen. Normal adrenals are seen. No renal mass or cyst is observed. T2 weighted scans show no filling defect within the gallbladder. There is no evidence of intrahepatic or extrahepatic bile duct dilation. Pancreatic duct is unremarkable. MRCP images show no filling defect in the common bile duct. IMPRESSION: Normal MRCP exam. No biliary or pancreatic ductal dilation. <Electronically signed by Yon Parker > 12/20/20 [id number]
[2020-12-20 16:00] VITALS: BP 116/66
[2020-12-20] MEDS ORDERED: ACETAMINOPHEN TAB 650MG DOSE (2X325MG) PO PRN (18:30)
[2020-12-20] MEDS ORDERED: MIRALAX *UNIT DOSE* 17GM PACKET PO PRN (18:30)
--- NOTE | 2020-12-20 19:44 | IPNPDOC ---
Subjective Date Seen The patient was seen on 12/20/20. Subjective Chief Complaint/HPI Mrs. Little is a 30-year-old female with history of bowel perforation with hemicolectomy and reanastomosis in 2017 who presents with acute right upper quadrant abdominal pain after a fall. Yesterday evening, she vomited once. She thinks it secondary to the ketorolac. Today she continues to have right upper quadrant pain. She tries to eat, but has not eaten much. Denies any dyspnea or chest pain. She went down for an MRCP which is negative. Patient's present just in possibly going home tomorrow. Objective Physical Examination General Exam: Positive: Alert, Cooperative Eye Exam: Positive: EOMI; Negative: Sclera icteric ENT Exam: Positive: Atraumatic Neck Exam: Positive: Supple Chest Exam: Positive: Clear to auscultation; Negative: Rales, Rhonchi, Wheezing Heart Exam: Positive: Rate Normal, Regular Rhythm Abdomen Exam: Positive: Normal bowel sounds, Soft, Tenderness (and right upper quadrant) Extremity Exam: Negative: Edema Neuro Exam: Positive: Cranial Nerves 3-12 NL Psych Exam: Positive: Anxiety Assessment /Plan Assessment Mrs. Little is a 30-year-old female with history of bowel perforation with hemicolectomy and reanastomosis in 2017 who presents with acute right upper quadrant abdominal pain after a fall. Initially her lipase is elevated but now has resolved. Her current right upper quadrant pain is most likely secondary to trauma, but she says that she has recurrent pain in that area. Gen. surgery did recommend an ERCP outpatient. Depending how she does overnight, possible discharge in the morning tomorrow Plan/VTE VTE Prophylaxis Ordered?: Yes Plan 1. Right upper quadrant pain CT of abdomen and pelvis was unremarkable CT of the chest was negative for rib fracture MRCP negative Pain may be musculoskeletal skeletal secondary to trauma Gen. surgery did recommend ERCP outpatient We'll try acetaminophen to help control the pain along with oxycodone as needed 2. Elevated lipase Resolved 3. Insomnia Restart trazodone 4. Psychiatric history Restart Latuda 5. Constipation May be secondary to opioid use Start Colace and MiraLAX as needed 6. DVT prophylaxis TEDs Disposition: If patient can tolerate pain off of oxycodone possible discharge home tomorrow VS, I&O, 24H, Fishbone Vital Signs/I&O Vital Signs Date Time Temp Pulse Resp B/P (MAP) Pulse Ox O2 Delivery O2 Flow Rate FiO2 12/20/20 18:19 18 12/20/20 16:00 98.9 71 116/66 (83) 98 Room Air I&O- Last 24 Hours up to 6 AM 12/20/20 06:00 Intake Total 6330 ml Output Total 2100 ml Balance 4230 ml Laboratory Data 24H LABS Laboratory Tests 2 12/20/20 06:25: Nucleated Red Blood Cells % (auto) 0.0, Anion Gap 5L, Glomerular Filtration Rate > 60.0, Calcium Level 8.5, Total Bilirubin 0.5#, Aspartate Amino Transf (AST/SGOT) 7, Alanine Aminotransferase (ALT/SGPT) 16, Alkaline Phosphatase 67, Total Protein 5.5L, Albumin 3.2, Albumin/Globulin Ratio 1.4, Lipase 316 CBC/BMP Laboratory Tests 12/20/20 06:25 Microbiology Microbiology 12/19/20 Respiratory Virus Panel (PCR) ([facility]) - Final, Complete HARLEY DENTON DO Dec 20, 2020 19:44
[2020-12-20 20:00] VITALS: BP 141/85
[2020-12-20] MEDS ORDERED: LURASIDONE 20 MG TAB (LATUDA) PO SCH (21:00)
[2020-12-20] MEDS ORDERED: traZODone 100 MG TAB PO SCH (21:00)
[2020-12-20] MEDS: SUCRALFATE SUSP 1GM/10ML UD PO SCH (21:44)
[2020-12-20] MEDS: DOCUSATE SODIUM 100MG CAPSULE PO SCH (21:45)
[2020-12-21 04:00] VITALS: BP 124/74
[2020-12-21] MEDS: NS 1,000 ML IV SCH (04:11)
[2020-12-21 07:02] LABS: HEMATOCRIT 33.5 % (36.0-47.0); MEAN CORPUSCULAR HEMOGLOBIN 29.7 pg (27.0-33.0); MEAN CORPUSCULAR HGB CONC 32.8 g/dl (32.0-36.5); MEAN CORPUSCULAR VOLUME 90.5 fl (80.0-96.0); PLATELET COUNT, AUTOMATED 148 10^3/uL (150-450)
[2020-12-21 07:34] LABS: ALBUMIN 2.9 GM/DL (3.2-5.2); ALT/SGPT 14 U/L (12-78); BILIRUBIN,TOTAL 0.7 MG/DL (0.2-1.0); BLOOD UREA NITROGEN 7 MG/DL (7-18); CALCIUM LEVEL 8.7 MG/DL (8.5-10.1); CARBON DIOXIDE LEVEL 28 MEQ/L (21-32); CHLORIDE LEVEL 110 MEQ/L (98-107); CREATININE FOR GFR 0.69 MG/DL (0.55-1.30); GLOMERULAR FILTRATION RATE > 60.0 (>60); GLUCOSE, FASTING 83 MG/DL (70-100); LIPASE 425 U/L (73-393); SODIUM LEVEL 144 MEQ/L (136-145)
[2020-12-21] MEDS: SUCRALFATE SUSP 1GM/10ML UD PO SCH ×2 (08:20→12:03)
[2020-12-21] MEDS: DOCUSATE SODIUM 100MG CAPSULE PO SCH (08:21)
[2020-12-21 08:30] VITALS: BP 124/84
[2020-12-21] MEDS ORDERED: SUCR1ORA PO (09:31)
[2020-12-21] MEDS ORDERED: DOK1CAP7 PO (09:31)
[2020-12-21] MEDS ORDERED: PEG1POW PO (09:31)
[2020-12-21] MEDS ORDERED: ACET-897 PO (09:31)
--- NOTE | 2020-12-21 22:48 | DS.PDOC ---
Discharge Summary General Date of Admission Dec 19, 2020 at 09:16 Date of Discharge Dec 21, 2020 Discharge Summary PROCEDURES PERFORMED DURING STAY: None ADMITTING DIAGNOSES: 1. Right upper quadrant abdominal pain secondary to trauma 2. Mechanical fall from standing 3. Elevated lipase 4. Anxiety and depression 5. Irritable bowel syndrome 6. Recreational drug abuse with marijuana DISCHARGE DIAGNOSES: 1. Right upper quadrant abdominal pain secondary to trauma 2. Mechanical fall from standing 3. Elevated lipase 4. Anxiety and depression 5. Irritable bowel syndrome 6. Recreational drug abuse with marijuana COMPLICATIONS/CHIEF COMPLAINT: Abdominal Pain. HISTORY OF PRESENT ILLNESS: Mrs. Little is a 30-year-old female with marijuana use, anxiety/depression, irritable bowel syndrome, and history of bowel perforation with hemicolectomy and reanastomosis who presents to the ED for acute onset of right upper quadrant pain after falling over the railing. Patient had tripped over her dog which had caused her mechanical fall. Patient reported a 10 out of 10 severe sharp pain in the right upper quadrant that radiated towards her back. Pain was unchanged by food, activity, or [id number] anal gesics. Recommend the ED was positive for an elevation of lipase at 1744. CT of abdomen and pelvis was negative for acute intra-abdominal pathology and ultrasound of the gallbladder was negative. ED consulted general surgery, Dr. Healy and hospitalist to admit. HOSPITAL COURSE: General surgery evaluated the patient and for the elevated lipase they recommended an MRCP. If MRCP was negative, they would then recommend ERCP as an outpatient in the future. They suspect that the right upper quadrant pain is most likely secondary to trauma. Patient had an MRCP which was negative. Patient was given IV fluids and lipase levels decreased. Patient was able to control pain with acetaminophen. Patient tolerated a diet. Patient was discharged on 12/21/2020 DISCHARGE MEDICATIONS: Please see below. ALLERGIES: Please see below. PHYSICAL EXAMINATION ON DISCHARGE: VITAL SIGNS: Please see below. GENERAL: Comfortable, in no apparent distress. HEENT: Head normocephalic/atraumatic, EOMI, sclera clear. NECK: Supple RESPIRATORY: Lungs clear to auscultation bilaterally, no rales, wheeze or rhonchi. CARDIOVASCULAR: Regular rate and rhythm. ABDOMEN: Abdomen was tender but soft. Normal bowel sounds. MUSCLE SKELETAL: Muscle strength 5/5 in all extremities. NEUROLOGICAL: CN 312 grossly intact, no focal deficits noted. PSYCHOLOGICAL: Normal mood and affect LABORATORY DATA: Please see below. IMAGING: Radiologist interpretation CT of the abdomen and pelvis No acute traumatic abnormality. Status post subtotal colectomy and hysterectomy. Tubal ligation clamps visible in the pelvis. Otherwise negative. Ultrasound of gallbladder Negative right upper quadrant sonography. CT of chest No active cardiopulmonary disease. Two stable small subcentimeter pulmonary nodules on the right unchanged from June 06, 2020. MRCP Normal MRCP exam. No biliary or pancreatic ductal dilation. PROGNOSIS: Good ACTIVITY: As tolerated. DIET: As tolerated DISCHARGE PLAN: Home DISPOSITION: Home, Self-Care. DISCHARGE INSTRUCTIONS: 1. Follow with PCP in one week 2. Follow-up with general surgery in 2-3 weeks DISCHARGE CONDITION: Stable. Total time spent on discharge planning, discharge summary, and medication reconciliation: 45 minutes Vital Signs/I&Os Vital Signs Date Time Temp Pulse Resp B/P (MAP) Pulse Ox O2 Delivery O2 Flow Rate FiO2 12/21/20 08:30 97.9 63 16 124/84 (97) 99 Room Air I&O- Last 24 Hours up to 6 AM 12/21/20 06:00 Intake Total 4340 ml Output Total 4025 ml Balance 315 ml Laboratory Data Labs 24H Laboratory Tests 2 12/21/20 06:39: Nucleated Red Blood Cells % (auto) 0.0, Anion Gap 6L, Glomerular Filtration Rate > 60.0, Calcium Level 8.7, Total Bilirubin 0.7, Aspartate Amino Transf (AST/SGOT) 8, Alanine Aminotransferase (ALT/SGPT) 14, Alkaline Phosphatase 62, Total Protein 5.0L, Albumin 2.9L, Albumin/Globulin Ratio 1.4, Lipase 425H CBC/BMP Laboratory Tests 12/21/20 06:39 Microbiology Microbiology 12/19/20 Respiratory Virus Panel (PCR) ([facility]) - Final, Complete Discharge Medications Scheduled Docusate Sodium (Dok) 100 Mg Capsule, 100 MG PO BID Lurasidone Hydrochloride (Latuda) 20 Mg Tablet, 20 MG PO QPM, (Reported) Sucralfate (Sucralfate) 1 Gm/10 Ml Oral.susp, 1 GM PO ACHS Trazodone HCl (Trazodone HCl) 100 Mg Tab, 200 MG PO QHS, (Reported) Scheduled PRN Acetaminophen (Tylenol Extra Strength) 500 Mg Tablet, 500 MG PO Q4HP PRN for pain Polyethylene Glycol 3350 (Polyethylene Glycol 3350) 17 Gm Powd.pack, 1 PKT PO DAILYPRN PRN for CONSTIPATION Allergies Coded Allergies: No Known Allergies (Unverified , 07/08/19) HARLEY DENTON DO Dec 21, 2020 22:48
== END 2020-12-21 12:06 | disposition home or self-care (01) | DRG 251 ==
LOC: M ED 05:11 → M ED INP 09:16 → M PED 11:57
PROVIDERS: ADMIT General Practice; ATTEND Internal Medicine
DX: R10.11 Right upper quadrant pain (principal); F50.2 Bulimia nervosa; R74.8 Abnormal levels of other serum enzymes; Z79.899 Other long term (current) drug therapy; F12.90 Cannabis use, unspecified, uncomplicated; F41.9 Anxiety disorder, unspecified; F32.9 Major depressive disorder, single episode, unspecified; R91.8 Other nonspecific abnormal finding of lung field

== ENCOUNTER → 2021-07-13 | Outpatient (REF) | payer OTHER ==
[~2021-07-13] MED LIST changes: +ACET-897 PO; +DOK1CAP4 PO; -OLAN10TA2; +OLAN1TAB20; +POLY17PO18 PO; -SIME180C PO; +SIME180C25 PO; +SUCR1ORA PO
== END ==
LOC: M WUC 15:38
PROVIDERS: ATTEND Physician Assistant
DX: R05 Cough (principal)

== ENCOUNTER → 2021-10-26 | Outpatient (CLI) | payer OTHER ==
[~2021-10-26] MED LIST changes: +ISOVUE-300 61% 50ML VIAL As Ordered ONE; +LIDOCAINE 1% MDV 20ML VIAL As Ordered ONE; +PROHANCE 279.3MG/ML 5ML VIAL As Ordered ONE
--- NOTE | 2021-10-26 09:08 | REP ---
INDICATION: PAIN IN RT HIP. COMPARISON: None. TECHNIQUE: Pre and post contrast 3T MRI of the right hip with MRI arthrogram was performed utilizing various sequences. The hip joint junction was performed by Justin Tobar [facility] FINDINGS: The femoral heads are spherical in shape and symmetric in appearance. No abnormal focal chondral or subchondral signal seen arising from the femoral or acetabular component of either hip. There is no hip joint effusion. There is no abnormal signal seen in the trochanteric tendono bursal region of either hip. The cortical and marrow signal seen throughout the imaged osseous pelvis is within normal limits. The signal and morphology throughout the imaged musculature is within normal limits. There is no evidence of a mass or mass effect. Dedicated small [id number] magnified images of the right hip before and after the intra-articular injection in all 3 planes shows rounding of the anterior superior labrum. An incidental sublabral foramen is identified. IMPRESSION: The anterior superior labrum is rounded which could be secondary to an old injury. There is no evidence of an acute tear. <Electronically signed by Jayson Cristobal > 10/26/21 [id number]
--- NOTE | 2021-10-26 16:44 | REP ---
INDICATION: PAIN IN RT HIP. COMPARISON: None. TECHNIQUE: The procedure was performed under the direction supervision of Dr. Tang. The benefits and risks including but not limited to pain, infection, bleeding and anaphylaxis were explained to the patient and informed consent was obtained. The right femoral neck was localized using fluoroscopic guidance. Skin was prepped and draped in a sterile fashion. 1% lidocaine was used as a local anesthetic. Using fluoroscopic guidance, and last image hold technology, a 22 gauge spinal needle was inserted and advanced to the femoral neck. 0.5 ml of Isovue-300 was injected to verify placement. 11 ml of a solution containing 20 ml of sterile saline and 0.15 ml of ProHance was injected into the joint. The needle was removed and the patient was taken to MRI for postprocedural imaging. The patient tolerated the procedure well and there were no immediate complications. Less than 6 of fluoro time was utilized for this procedure. FINDINGS: None IMPRESSION: Fluoro guidance for right hip MRI arthrogram injection. <Electronically signed by Mateo Tobar > 10/26/21 [id number] <Electronically signed by Stepan Tang > 10/26/21 [id number]
== END ==
LOC: M RADPRO 06:58
PROVIDERS: ATTEND Orthopaedic Surgery
DX: M25.551 Pain in right hip (principal)
CPT/HCPCS: 27093; 73723; 77002; A9576; Q9967

== ENCOUNTER → 2022-01-26 | Outpatient (CLI) | payer OTHER ==
[~2022-01-26] MED LIST changes: -ISOVUE-300 61% 50ML VIAL As Ordered ONE; -LATU80TA PO; +LATU80TA2 PO; -LIDOCAINE 1% MDV 20ML VIAL As Ordered ONE; -PROHANCE 279.3MG/ML 5ML VIAL As Ordered ONE
[2022-01-26 10:10] LABS: BASO # 0.1 10^3/uL (0.0-0.2); EOS # 0.1 10^3/uL (0.0-0.5); EOS % 2.3 % (0.0-3.0); HEMATOCRIT 39.5 % (36.0-47.0); HEMOGLOBIN 13.1 g/dl (12.0-15.5); LYMPH # 1.4 10^3/uL (1.5-5.0); MEAN CORPUSCULAR HEMOGLOBIN 30.6 pg (27.0-33.0); MEAN CORPUSCULAR HGB CONC 33.2 g/dl (32.0-36.5); MEAN CORPUSCULAR VOLUME 92.3 fl (80.0-96.0); MONO # 0.3 10^3/uL (0.0-0.8); MONO % 5.3 % (2.0-8.0); NEUTROPHILS # 3.2 10^3/uL (1.5-8.5); PLATELET COUNT, AUTOMATED 229 10^3/uL (150-450); RED BLOOD COUNT 4.28 10^6/uL (4.00-5.40); WHITE BLOOD COUNT 5.1 10^3/uL (4.0-10.0)
[2022-01-26 10:40] LABS: ERYTHROCYTE SEDIMENTATION RATE 3 mm/hr (0-20)
[2022-01-26 10:44] LABS: C REACTIVE PROTEIN QUANTITATIV < 0.30 MG/DL (0.00-0.30); RHEUMATOID FACTOR QUANT < 10.0 IU/ML (<15.0)
[2022-01-27 19:07] LABS: ANTINUCLEAR ANTIBODIES DIRECT Negative (Negative); Lyme Disease IgG/IgM Antibodie <0.91 ISR (0.00-0.90); Lyme Disease IgM Ab Quantitati <0.80 index (0.00-0.79)
== END ==
LOC: M LAB 09:21
PROVIDERS: ATTEND Orthopaedic Surgery
DX: M25.552 Pain in left hip (principal)

== ENCOUNTER → 2022-10-11 | Outpatient (REF) | payer OTHER ==
[~2022-10-11] MED LIST changes: -MUCITAB PO; +PHEN-879 PO
[2022-10-11 13:00] LABS: RSV AMPLIFICATION NEGATIVE (NEGATIVE)
== END ==
LOC: M LAB REF 12:05
PROVIDERS: ATTEND Physician Assistant
DX: B34.9 Viral infection, unspecified (principal)

== ENCOUNTER 2023-02-04 09:34 | Emergency (ER) | payer OTHER ==
[~2023-02-04] VITALS: Ht 154.9 cm; Wt 70.5 kg
[~2023-02-04 09:34] MED LIST changes: -BENZ-52; +BENZ1TAB5
[2023-02-04] MEDS ORDERED: KETOROLAC 30 MG/ML 1ML VIAL IV ONE (09:55)
[2023-02-04] MEDS ORDERED: ONDANSETRON 4MG 2ML VIAL IV ONE (10:55)
[2023-02-04] MEDS: MORPHINE 4 MG/ML 1ML VIAL IV PRN ×2 (11:04→13:13)
[2023-02-04 13:30] VITALS: BP 122/72
[2023-02-04] MEDS ORDERED: PERC5TAB12 PO (13:42)
== END 2023-02-04 13:58 | disposition home or self-care (01) ==
LOC: M ED 09:34
DX: S32.040A Wedge compression fracture of fourth lumbar vertebra, initial encounter for closed fracture (principal); W10.9XXA Fall (on) (from) unspecified stairs and steps, initial encounter; Y92.019 Unspecified place in single-family (private) house as the place of occurrence of the external cause; Y93.01 Activity, walking, marching and hiking; Y99.8 Other external cause status; F41.9 Anxiety disorder, unspecified; F32.9 Major depressive disorder, single episode, unspecified; K58.9 Irritable bowel syndrome, unspecified; F12.90 Cannabis use, unspecified, uncomplicated; Z79.899 Other long term (current) drug therapy
CPT/HCPCS: 72072; 72110; 72125; 72131; 96374; 96375; 99283; J1885; J2405

== ENCOUNTER → 2023-02-06 | Outpatient (CLI) | payer OTHER ==
[~2023-02-06] MED LIST changes: +PERC5TAB12 PO
== END ==
LOC: M PLAIMG 14:28
PROVIDERS: ATTEND Physician Assistant
DX: S30.0XXA Contusion of lower back and pelvis, initial encounter (principal); S32.040A Wedge compression fracture of fourth lumbar vertebra, initial encounter for closed fracture

== ENCOUNTER 2023-08-24 11:18 | Emergency (ER) | payer OTHER ==
[~2023-08-24] VITALS: Ht 154.9 cm; Wt 67.9 kg
[~2023-08-24 11:18] MED LIST changes: +BENZ0.5T2; -BENZ0.5T23
[2023-08-24] MEDS ORDERED: NORCO, ANEXSIA 5/325MG TABLET (HYDROcodone/ACETAMINOPHEN) PO ONE (12:25)
[2023-08-24] MEDS ORDERED: BOOSTRIX VACCINE (TETANUS/DIPHTH/ACEL. PERTUSSIS) 0.5ML SYR IM ONE (13:55)
[2023-08-24 14:14] VITALS: BP 118/59; TEMP 98.1; O2SAT 95
== END 2023-08-24 14:17 | disposition home or self-care (01) ==
LOC: M ED 11:18
DX: S05.11XA Contusion of eyeball and orbital tissues, right eye, initial encounter (principal); S40.022A Contusion of left upper arm, initial encounter; S40.012A Contusion of left shoulder, initial encounter; S80.01XA Contusion of right knee, initial encounter; S60.031A Contusion of right middle finger without damage to nail, initial encounter; M25.531 Pain in right wrist; F10.10 Alcohol abuse, uncomplicated; M54.2 Cervicalgia; F12.10 Cannabis abuse, uncomplicated; F17.200 Nicotine dependence, unspecified, uncomplicated; G43.909 Migraine, unspecified, not intractable, without status migrainosus; K21.9 Gastro-esophageal reflux disease without esophagitis; M54.50 Low back pain, unspecified; F41.9 Anxiety disorder, unspecified; F32.A Depression, unspecified; Y04.8XXA Assault by other bodily force, initial encounter; Z79.1 Long term (current) use of non-steroidal anti-inflammatories (NSAID); Z79.810 Long term (current) use of selective estrogen receptor modulators (SERMs); Z79.899 Other long term (current) drug therapy

== ENCOUNTER → 2024-05-26 | Outpatient (REF) ==
[~2024-05-26] MED LIST changes: -KLON1TAB PO; +KLON1TAB13 PO; +ONDA-282 PO; -ONDA4TAB6 PO
== END ==
LOC: M PLAIMG 10:00
PROVIDERS: ATTEND Internal Medicine
DX: R52 Pain, unspecified (principal)